=== PATIENT | male | born 1960 | race Caucasian/White ===

== ENCOUNTER 2017-05-29 16:26 | Observation (INO) | payer SELFPAY ==
[~2017-05-29 16:26] MED LIST: ASPI81TA82 PO; ENAL2.5 PO; GLUCTAB OR; GLYB1TAB51 PO; PLAV75TA PO; PRAV40TA2 PO; SULF-154 PO
[2017-05-29 16:45] VITALS: BP 130/64; PULSE 72; RESP 22; TEMP 98.3; O2SAT 97
[2017-05-29] MEDS ORDERED: METF850 PO (17:26)
[2017-05-29] MEDS ORDERED: ENAL2.5T PO (17:26)
[2017-05-29] MEDS ORDERED: CARV3.12 PO (17:26)
[2017-05-29] MEDS ORDERED: PRAV40TA2 PO (17:26)
[2017-05-29] MEDS ORDERED: CLOP75TA PO (17:26)
[2017-05-29] MEDS ORDERED: GLYB2.5T3 PO (17:26)
[2017-05-29] MEDS ORDERED: SODIUM CHLORIDE 0.9% FLUSH 10 ML FLUSH IVF PRN (17:30)
--- NOTE | 2017-05-29 17:33 | PD ---
HPI Chief Complaint: Chest Pain Time Seen by Provider: 17:18 Travel History International Travel<30 days: No Contact w/Intl Traveler<30days: No Traveled to known affect area: No History of Present Illness HPI Patient is a 57-year-old male presents emergency department for evaluation of shortness of breath progressive over the past few weeks. Patient has a history of CABG, last heart attack was a year ago, he had an angiogram which showed his ejection fraction was about 40% at that time according to him. The patient states that he had just established with Dr. Henao and recently had a nuclear stress test, he has a results with him which are difficult to interpret by me because her hand written but appears the patient has global hypokinesis, severe aortic insufficiency and mitral insufficiency with an EF of about 19%. Apparently he has a fixed defect as well. Patient was told by Dr. Henao to come to the emergency department for further evaluation but he states he thought he could do it at home but he became somewhat worried when they were thinking about his recommendations from Dr. Henao and decided to come in today. He states his shortness of breath can be severe and onsets only after a few steps. He does not wear any home oxygen, quit smoking 3 years ago. He denies any chest pain abdominal pain extremity pain to me. PFSH Past Medical History Cancer: No Cardiac Catheterization: Yes (05/2012) Cardiovascular Problems: Yes High Cholesterol: Yes Chest Pain: Yes Coronary Artery Disease: Yes Diabetes: Yes Patient Takes Glucophage: Yes Diminished Hearing: No Endocrine: Yes Gastrointestinal Disorders: Yes Genitourinary: No Hypertension: Yes Immune Disorder: No Musculoskeletal: Yes Neurologic: No Psychiatric: No Reproductive: No Respiratory: Yes Immunizations Current: Yes Myocardial Infarction: Yes (05/2012) Ulcer: Yes Tetanus Vaccination: > 5 Years Influenza Vaccination: No ?: Not Past Surgical History Appendectomy: Yes Cardiac Surgery: Yes (CABG X3) Other Surgery: Yes (CABG, APPENDECTOMY, SKIN GRAFTS TO RIGHT FOOT A CHILD, BACK SURGERY X 3) Social History Alcohol Use: Yes (SOCIALLY) Tobacco Use: No Substance Use: No Allergies-Medications (Allergen,Severity, Reaction): Coded Allergies: iodine (Unverified Allergy, Severe, Swelling, 05/29/17) potassium iodide (Unverified Allergy, Severe, Swelling, 05/29/17) povidone-iodine (Unverified Allergy, Severe, Swelling, 05/29/17) shellfish derived (Unverified Allergy, Severe, 05/29/17) sodium iodide (Unverified Allergy, Severe, Swelling, 05/29/17) sodium iodide (Unverified Allergy, Severe, Swelling, 05/29/17) Reported Meds & Prescriptions Reported Meds & Active Scripts Active Reported Glucophage (Metformin HCl) 850 Mg Tab 850 Mg PO TIDPC Enalapril (Enalapril Maleate) 2.5 Mg Tab 2.5 Mg PO DAILY Pravastatin 40 Mg Tab 40 Mg PO DAILY Glyburide 2.5 Mg Tab 2.5 Mg PO BID Take with meals at the same time each day Clopidogrel (Clopidogrel Bisulfate) 75 Mg Tab 75 Mg PO DAILY Review of Systems Except as stated in HPI: all other systems reviewed are Neg Physical Exam Narrative GENERAL: Well-developed, well-nourished, no obvious distress peer SKIN: Focused skin assessment warm/dry. HEAD: Atraumatic. Normocephalic. EYES: Pupils equal and round. No scleral icterus. No injection or drainage. ENT: No nasal bleeding or discharge. Mucous membranes pink and moist. NECK: Trachea midline. No JVD. CARDIOVASCULAR: Regular rate and rhythm. No murmur appreciated. 2+ bilateral equal pulses in all 4 extremities. RESPIRATORY: No accessory muscle use. Clear to auscultation. Breath sounds equal bilaterally. Patient speaks in full sentences but then has to gasp between them. He has good air entry and is clear to auscultation bilaterally. GASTROINTESTINAL: Abdomen soft, non-tender, nondistended. Hepatic and splenic margins not palpable. MUSCULOSKELETAL: No obvious deformities. No clubbing. No cyanosis. There is pitting edema bilateral lower extremities from the mid tibia distally. NEUROLOGICAL: Awake and alert. No obvious cranial nerve deficits. Motor grossly within normal limits. Normal speech. PSYCHIATRIC: Appropriate mood and affect; insight and judgment normal. Data Data Last Documented VS Orders Orders Electrocardiogram (05/29/17 17:29) B-Type Natriuretic Peptide (05/29/17 17:29) Ckmb (Isoenzyme) Profile (05/29/17 17:29) Complete Blood Count With Diff (05/29/17 17:29) Comprehensive Metabolic Panel (05/29/17 17:29) Magnesium (Mg) (05/29/17 17:29) Prothrombin Time / Inr (Pt) (05/29/17 17:29) Act Partial Throm Time (Ptt) (05/29/17 17:29) Troponin I (05/29/17 17:29) Chest, Single Ap (05/29/17 17:29) Ecg Monitoring (05/29/17 17:29) Iv Access Insert/Monitor (05/29/17 17:29) Oximetry (05/29/17 17:29) Oxygen Administration (05/29/17 17:29) Sodium Chloride 0.9% Flush (Ns Flush) (05/29/17 17:30) Admit Order (Ed Use Only) (05/29/17 20:57) Place In Observation (05/29/17 20:59) Activity Bed Rest With Brp (05/29/17 20:59) Vital Signs (Adult) Q4H (05/29/17 20:59) Cardiac Rhythm .As Directed (05/29/17 20:59) Notify Dr: Other .PRN (05/29/17 20:59) Notify DrAndrew Parameters (05/29/17 20:59) Resp Oxygen Nasal Cannula (05/29/17 ) Ckmb (Isoenzyme) Profile (05/29/17 20:59) Ckmb (Isoenzyme) Profile (05/29/17 23:59) Troponin I (05/29/17 20:59) Troponin I (05/29/17 23:59) Electrocardiogram (05/29/17 20:59) Electrocardiogram (05/29/17 23:59) ^ Obtain (05/29/17 20:59) Sodium Chloride 0.9% Flush (Ns Flush) (05/29/17 21:00) Sodium Chloride 0.9% Flush (Ns Flush) (05/29/17 21:00) Program Manager Environmental Planning / Telemetry [id number] (05/29/17 20:59) Labs Laboratory Tests Test 05/29/17 17:44 White Blood Count 5.4 TH/MM3 Red Blood Count 4.99 MIL/MM3 Hemoglobin 13.1 GM/DL Hematocrit 39.6 % Mean Corpuscular Volume 79.3 FL Mean Corpuscular Hemoglobin 26.2 PG Mean Corpuscular Hemoglobin Concent 33.0 % Red Cell Distribution Width 14.6 % Platelet Count 178 TH/MM3 Mean Platelet Volume 8.5 FL Neutrophils (%) (Auto) 47.7 % Lymphocytes (%) (Auto) 36.1 % Monocytes (%) (Auto) 12.7 % Eosinophils (%) (Auto) 2.2 % Basophils (%) (Auto) 1.3 % Neutrophils # (Auto) 2.6 TH/MM3 Lymphocytes # (Auto) 1.9 TH/MM3 Monocytes # (Auto) 0.7 TH/MM3 Eosinophils # (Auto) 0.1 TH/MM3 Basophils # (Auto) 0.1 TH/MM3 CBC Comment DIFF FINAL Differential Comment Prothrombin Time 11.6 SEC Prothromb Time International Ratio 1.1 RATIO Activated Partial Thromboplast Time 22.6 SEC Blood Urea Nitrogen 19 MG/DL Creatinine 1.03 MG/DL Random Glucose 275 MG/DL Total Protein 6.5 GM/DL Albumin 3.4 GM/DL Calcium Level 8.9 MG/DL Magnesium Level 1.7 MG/DL Alkaline Phosphatase 146 U/L Aspartate Amino Transf (AST/SGOT) 24 U/L Alanine Aminotransferase (ALT/SGPT) 45 U/L Total Bilirubin 0.4 MG/DL Sodium Level 140 MEQ/L Potassium Level 4.3 MEQ/L Chloride Level 106 MEQ/L Carbon Dioxide Level 26.5 MEQ/L Anion Gap 8 MEQ/L Estimat Glomerular Filtration Rate 74 ML/MIN Total Creatine Kinase 96 U/L Troponin I LESS THAN 0.02 NG/ML B-Type Natriuretic Peptide 472 PG/ML MDM Medical Decision Making Medical Screen Exam Complete: Yes Emergency Medical Condition: Yes Differential Diagnosis ACS, CAD, DE. Narrative Course Patient initial workup negative, he does have a stress test report with him which is hand written and appears to show an EF of 19%. If attempted to page his television and radio repairer has not yet returned my page, I have asked Dr. Hernandez at shift change to speak with the television and radio repairer for additional direction on inpatient management, otherwise the patient can be admitted to medicine can follow these recommendations. Scripts Carvedilol (Carvedilol) 6.25 Mg Tab 6.25 MG PO BID, #60 TAB 0 Refills Prov: NewtonphuongkatieBrittney TOYA 05/30/17 Parmjit Ashford MD May 29, 2017 17:33
[2017-05-29 18:06] LABS: AUTOMATED NEUTROPHIL # 2.6 TH/MM3 (1.8-7.7); BASOPHIL # 0.1 TH/MM3 (0-0.2); BASOPHIL % 1.3 % (0.0-2.0); EOSINOPHIL # 0.1 TH/MM3 (0-0.4); EOSINOPHIL % 2.2 % (0.0-4.0); HEMATOCRIT 39.6 % (39.0-51.0); HEMOGLOBIN 13.1 GM/DL (13.0-17.0); LYMPH % 36.1 % (9.0-44.0); LYMPHOCYTE # 1.9 TH/MM3 (1.0-4.8); MEAN CELL VOLUME 79.3 FL (80.0-100.0); MEAN CORPUSCULAR HEMOGLOBIN 26.2 PG (27.0-34.0); MEAN PLATELET VOLUME 8.5 FL (7.0-11.0); MONO % 12.7 % (0.0-8.0); MONOCYTE # 0.7 TH/MM3 (0-0.9); NEUT % 47.7 % (16.0-70.0); PLATELET COUNT 178 TH/MM3 (150-450); RED BLOOD COUNT 4.99 MIL/MM3 (4.50-5.90); RED CELL DISTRIBUTION WIDTH 14.6 % (11.6-17.2); WHITE BLOOD COUNT 5.4 TH/MM3 (4.0-11.0)
[2017-05-29 18:21] LABS: INTERNATIONAL NORMALIZED RATIO 1.1 RATIO; PROTHROMBIN TIME - PATIENT 11.6 SEC (9.8-11.6)
[2017-05-29 18:26] LABS: ALBUMIN 3.4 GM/DL (3.4-5.0); AST (GOT) 24 U/L (15-37); BICARBONATE 26.5 MEQ/L (21.0-32.0); BLOOD UREA NITROGEN 19 MG/DL (7-18); CALCIUM 8.9 MG/DL (8.5-10.1); CHLORIDE 106 MEQ/L (98-107); CREATININE 1.03 MG/DL (0.60-1.30); GLOMERULAR FILTRATION RATE 74 ML/MIN (>89); GLUCOSE,RANDOM 275 MG/DL (74-106); MAGNESIUM 1.7 MG/DL (1.5-2.5); SODIUM (NA) 140 MEQ/L (136-145)
[2017-05-29 18:27] LABS: ALT (GPT) 45 U/L (12-78)
[2017-05-29 18:31] LABS: ALKALINE PHOSPHATASE 146 U/L (45-117); TOTAL BILIRUBIN ADULT 0.4 MG/DL (0.2-1.0); TOTAL PROTEIN 6.5 GM/DL (6.4-8.2); TROPONIN I LESS THAN 0.02 NG/ML (0.02-0.05)
--- NOTE | 2017-05-29 18:35 | RADRPT ---
EXAM DATE/TIME: 05/29/2017 18:05 [facility] COMPARISON: CHEST SINGLE AP, May 18, 2012, 23:43. INDICATIONS : Chest pain. MEDICAL HISTORY : None. SURGICAL HISTORY : CABG. ENCOUNTER: Initial ACUITY: 1 day PAIN SCORE: 4/10 LOCATION: Bilateral chest FINDINGS: Mild patient rotation towards the right. A single view of the chest demonstrates the lungs to be sym metrically aerated without evidence of mass, infiltrate or effusion. The cardiomediastinal contours are unremarkable. Osseous structures are intact. Median sternotomy with intact sternal wire sutures . CONCLUSION: The lungs are clear. Haseeb Hendrix MD on May 29, 2017 at 18:33 Board Certified Radiologist. This report was verified electronically.
[2017-05-29 20:19] VITALS: BP 110/67; PULSE 69; RESP 16; O2SAT 97
[2017-05-29] MEDS: SODIUM CHLORIDE 0.9% FLUSH 10 ML FLUSH IV FLUSH SCH (21:00)
[2017-05-29] MEDS ORDERED: SODIUM CHLORIDE 0.9% FLUSH 10 ML FLUSH IV FLUSH PRN (21:00)
[2017-05-29 22:22] LABS: TROPONIN I LESS THAN 0.02 NG/ML (0.02-0.05)
[2017-05-29 22:42] VITALS: BP 120/70; PULSE 62; RESP 16; TEMP 97.5; O2SAT 98
[2017-05-30] VITALS (7 sets, daily range): BP systolic 112–124; BP diastolic 55–71; PULSE 55–73; RESP 16–22; TEMP 97.3–97.7; O2SAT 98–99
[2017-05-30 02:01] LABS: TROPONIN I LESS THAN 0.02 NG/ML (0.02-0.05)
[2017-05-30] MEDS ORDERED: NITROGLYCERIN 0.4 MG SL 25 TABS/BTL SL PRN (08:00)
[2017-05-30] MEDS ORDERED: ACETAMINOPHEN 500 MG CPLT PO PRN (08:00)
[2017-05-30] MEDS ORDERED: ONDANSETRON HCL 4 MG/2 ML VIAL IV PUSH PRN (08:00)
--- NOTE | 2017-05-30 08:07 | HHI.HP ---
[facility] Primary Care Physician Michael Jacques DO Chief Complaint Dyspnea History of Present Illness 57 year old male with history of CABG, CHF, HTN, HLD, Type II DM, and former smoker presents to ER for further evaluation of dyspnea. Onset 3 weeks ago with accompanying bilateral lower extremity edema. Edema and dyspnea improved after one week "on it's own" before returning. Reported orthopnea during varies times during the day and exertional dsypnea, therefore he contacted his seed cleaner Dr. Henao. Reports multiple testing completed during this time, including echocardiogram and nuclear stress testing early this week. Dr. Henao reviewed results of testing with him on Saturday and MD recommended him coming to ER due to decreased EF of 19%, stating EF 1.5 year ago was 40%. Waited to come to ER due to errands wanting to complete as he was certain he would be admitted to hospital. No current chest pain or discomfort. Yesterday during an episode of dyspnea had central chest pressure briefly. Review of Systems General: No fatigue,weakness, fever, chills, recent illness, or change in appetite. HEENT: No FLORES, no vision changes, no nasal congestion or drainage CV: As stated above. No current chest pain or pressure. No palpitations, intermittent leg pain, dizziness RESP: Exertional dyspnea, orthopnea, COPD, and former smoker. Does not require home oxygen. No cough, wheeze, hemoptysis. GI: No nausea, vomiting, bowel changes. No unintentional weight gain or weight loss : No dysuria, urgency, frequency EXT: No lower leg edema, no paraesthesias MS: No discomfort or change in ROM NEURO: No change in memory, dizziness, difficulty with balance, LOC, motor/ sensory deficits PSYCH: No anxiety, depression SKIN: No rashes, no concerning lesions Past Family Social History Allergies: Coded Allergies: iodine (Unverified Allergy, Severe, Swelling, 05/29/17) potassium iodide (Unverified Allergy, Severe, Swelling, 05/29/17) povidone-iodine (Unverified Allergy, Severe, Swelling, 05/29/17) shellfish derived (Unverified Allergy, Severe, 05/29/17) sodium iodide (Unverified Allergy, Severe, Swelling, 05/29/17) sodium iodide (Unverified Allergy, Severe, Swelling, 05/29/17) Past Medical History Coronary artery disease, [place] (15 year ago), hypertension, hyperlipidemia, type 2 diabetes, former smoker, congestive heart failure, COPD Past Surgical History CABG, appendectomy, lumbar surgeries 3 Reported Medications Reported Meds & Active Scripts Active Reported Glucophage (Metformin HCl) 850 Mg Tab 850 Mg PO TIDPC Enalapril (Enalapril Maleate) 2.5 Mg Tab 2.5 Mg PO DAILY Pravastatin 40 Mg Tab 40 Mg PO DAILY Carvedilol 3.125 Mg Tab 3.125 Mg PO BID Glyburide 2.5 Mg Tab 2.5 Mg PO BID Take with meals at the same time each day Clopidogrel (Clopidogrel Bisulfate) 75 Mg Tab 75 Mg PO DAILY Active Ordered Medications Current Medications Medications (Trade) Dose Ordered Sig/Erika Route Start Time Stop Time Status Last Admin (NS Flush) 2 ml UNSCH PRN IVF 05/29/17 17:30 (NS Flush) 2 ml UNSCH PRN IV FLUSH 05/29/17 21:00 (NS Flush) 2 ml BID IV FLUSH 05/29/17 21:00 (Tylenol) 500 mg Q4H PRN PO 05/30/17 08:00 (Zofran Inj) 4 mg Q6H PRN IV PUSH 05/30/17 08:00 (Nitrostat Sl) 0.4 mg Q5M PRN SL 05/30/17 08:00 (Aspirin) 325 mg DAILY PO 05/30/17 09:00 Social History Known coronary artery disease, hypertension, hyperlipidemia, and type 2 diabetes. Former smoker quitting 3 years ago. Past cardiac testing 05/27/17- Chemical stress test completed Dr. Henao's office, reports EF 19% and directed to ER. 05/20/12 cardiac catheterization (Dr. Aviva Sapp) 1. Critical three-vessel coronary artery disease. 2. Patent DAI to LAD. 3. Ischemic cardiomyopathy EF 35-40% CABG Physical Exam Vital Signs Vital Signs Date Time Temp Pulse Resp B/P (MAP) Pulse Ox O2 Delivery O2 Flow Rate FiO2 05/30/17 04:53 97.5 69 16 119/67 (84) 98 05/30/17 01:21 Nasal Cannula 2.00 05/30/17 01:05 97.6 73 18 115/57 (76) 98 05/30/17 00:19 71 3/7/18 22:42 97.5 62 16 120/70 (87) 98 05/29/17 22:02 05/29/17 20:19 69 16 110/67 (81) 97 Nasal Cannula 2.00 05/29/17 18:15 100 Nasal Cannula 2.00 05/29/17 17:03 62 22 97 Nasal Cannula 2.00 05/29/17 16:45 98.3 72 22 130/64 (86) 97 Physical Exam GENERAL: Alert WN, WD, NAD, pleasant, mildly dyspneic with conversation, male who appears older than stated age HEAD: NC, AT EYES: Sclera clear, conjunctiva without injection ENT: Mucous membranes pink and moist NECK: Supple, no masses, trachea midline CV: RRR, without murmur, rub, gallop, no JVD, S1-S2 no S3-S4. RESP: Diminished lungs throughout bilateral, no crackles, wheeze, rhonchi, symmetrical chest rise, nonlabored, mildly dyspneic with conversion however able to speak in full sentences. ABD: Soft, NT, ND, no masses, positive bowel tones EXT: Pulses +24 MS: Normal tone 4 extremities, no obvious deformities, full range of motion NEURO: CN II through CN XII grossly intact, motor strength 5/5 PSYCH: A+O 3, pleasant affect, appropriate speech, mood, insight and judgment SKIN: Normal turgor, normal texture, no lesions, no rashes, even hair distribution, multiple tattoos Laboratory Laboratory Tests Test 05/29/17 17:44 05/29/17 21:20 05/30/17 01:15 White Blood Count 5.4 Red Blood Count 4.99 Hemoglobin 13.1 Hematocrit 39.6 Mean Corpuscular Volume 79.3 Mean Corpuscular Hemoglobin 26.2 Mean Corpuscular Hemoglobin Concent 33.0 Red Cell Distribution Width 14.6 Platelet Count 178 Mean Platelet Volume 8.5 Neutrophils (%) (Auto) 47.7 Lymphocytes (%) (Auto) 36.1 Monocytes (%) (Auto) 12.7 Eosinophils (%) (Auto) 2.2 Basophils (%) (Auto) 1.3 Neutrophils # (Auto) 2.6 Lymphocytes # (Auto) 1.9 Monocytes # (Auto) 0.7 Eosinophils # (Auto) 0.1 Basophils # (Auto) 0.1 CBC Comment DIFF FINAL Differential Comment Prothrombin Time 11.6 Prothromb Time International Ratio 1.1 Activated Partial Thromboplast Time 22.6 Blood Urea Nitrogen 19 Creatinine 1.03 Random Glucose 275 Total Protein 6.5 Albumin 3.4 Calcium Level 8.9 Magnesium Level 1.7 Alkaline Phosphatase 146 Aspartate Amino Transf (AST/SGOT) 24 Alanine Aminotransferase (ALT/SGPT) 45 Total Bilirubin 0.4 Sodium Level 140 Potassium Level 4.3 Chloride Level 106 Carbon Dioxide Level 26.5 Anion Gap 8 Estimat Glomerular Filtration Rate 74 Total Creatine Kinase 96 73 59 Troponin I LESS THAN 0.02 LESS THAN 0.02 LESS THAN 0.02 B-Type Natriuretic Peptide 472 Result Diagram: 05/29/17 1744 05/29/17 1744 Imaging Last 48 hours Impressions Chest X-Ray 05/29/17 1729 Signed Impressions: Service Date/Time: Monday, May 29, 2017 18:05 - CONCLUSION: The lungs are clear. Haseeb Hendrix MD Course EKG NSB, nonspecific t waves changes V4-V6 Caprini VTE Risk Assessment Caprini VTE Risk Assessment: No/Low Risk (score <= 1) Caprini Risk Assessment Model Point Value = 1 Point Value = 2 Point Value = 3 Point Value = 5 Age 41-60 Minor surgery BMI > 25 kg/m2 Swollen legs Varicose veins or History of unexplained or recurrent spontaneous Oral contraceptives or hormone replacement Sepsis (< 1 month) Serious lung disease, including pneumonia (< 1 month) Abnormal pulmonary function Acute myocardial infarction Congestive heart failure (< 1 month) History of inflammatory bowel disease Medical patient at bed rest Age 61-74 Arthroscopic surgery Major open surgery (> 45 min) Laparoscopic surgery (> 45 min) Malignancy Confined to bed (> 72 hours) Immobilizing plaster cast Central venous access Age >= 75 History of VTE Family history of VTE Factor V Leiden Prothrombin [id number] Lupus anticoagulant Anticardiolipin antibodies Elevated serum homocysteine Heparin-induced thrombocytopenia Other congenital or acquired thrombophilia Stroke (< 1 month) Elective arthroplasty Hip, pelvis, or leg fracture Acute spinal cord injury (< 1 month) Prophylaxis Regimen Total Risk Factor Score Risk Level Prophylaxis Regimen 0-1 Low Early ambulation 2 Moderate Order ONE of the following: *Sequential Compression Device (SCD) *Heparin 5000 units SQ BID 3-4 Higher Order ONE of the following medications: *Heparin 5000 units SQ TID *Enoxaparin/Lovenox 40 mg SQ daily (WT < 150 kg, CrCl > 30 mL/min) *Enoxaparin/Lovenox 30 mg SQ daily (WT < 150 kg, CrCl > 10-29 mL/min) *Enoxaparin/Lovenox 30 mg SQ BID (WT < 150 kg, CrCl > 30 mL/min) AND/OR *Sequential Compression Device (SCD) 5 or more Highest Order ONE of the following medications: *Heparin 5000 units SQ TID (Preferred with Epidurals) *Enoxaparin/Lovenox 40 mg SQ daily (WT < 150 kg, CrCl > 30 mL/min) *Enoxaparin/Lovenox 30 mg SQ daily (WT < 150 kg, CrCl > 10-29 mL/min) *Enoxaparin/Lovenox 30 mg SQ BID (WT < 150 kg, CrCl > 30 mL/min) AND *Sequential Compression Device (SCD) Assessment and Plan Assessment and Plan #1 Atypical chest pain-admitted to chest pain center. Ruled out with 3 sets of EKGs, cardiac enzymes, and monitored on telemetry overnight. Reports recent cardiac stress test early this week with EF 19%. His seed cleaner recommended him coming to ER on Saturday, unfortunately was unable to come to ER until last evening. Call will be placed to Dr. Henao office, however patient reports Dr. Henao is now out of town. If Dr. Henao is out of town, will contact on -call physician for Dr. Henao to discuss plan of care. Patient is agreeable to plan of care. #2 Dyspnea-continue o2 supplementation to maintain spo2 greater than 92%, no acute finding of congestive heart failure although due to reported orthopnea will administer x1 dose of Lasix 20 mg IV #3 History of CAD-continue Plavix, increase Coreg to 6.25 BID, continue enalapril [address] Rivas, covering for Dr. Henao. Brittney Parrish May 30, 2017 08:07
[2017-05-30] MEDS ORDERED: GLUCAGON 1 MG/ML VIAL OTHER PRN (08:45)
[2017-05-30] MEDS ORDERED: FUROSEMIDE 20 MG/2 ML VIAL IV PUSH ONE (08:45)
[2017-05-30] MEDS ORDERED: DEXTROSE 50% IN WATER 50 ML VIAL(D50) IV PUSH PRN (08:45)
[2017-05-30] MEDS ORDERED: ENALAPRIL MALEATE 2.5 MG TAB PO SCH (09:00)
[2017-05-30] MEDS ORDERED: PRAVASTATIN SOD 40 MG TAB PO SCH (09:00)
[2017-05-30] MEDS ORDERED: CARVEDILOL 6.25 MG TAB PO SCH (09:00)
[2017-05-30] MEDS ORDERED: ASPIRIN 325 MG TAB PO SCH (09:00)
[2017-05-30] MEDS ORDERED: CLOPIDOGREL 75 MG TAB PO SCH (09:00)
[2017-05-30] MEDS: SODIUM CHLORIDE 0.9% FLUSH 10 ML FLUSH IV FLUSH SCH (10:43)
[2017-05-30] MEDS ORDERED: INSULIN ASPART SUPPLEMENTAL SCALE SQ SCH (12:00)
[2017-05-30] MEDS ORDERED: CARV6.252 PO (13:02)
--- NOTE | 2017-05-30 13:05 | HHI.DCPOC ---
Discharge Care Plan Diagnosis: (1) Decreased cardiac ejection fraction (2) Atypical chest pain (3) Sleeps in sitting position due to orthopnea Goals to Promote Your Health * To prevent worsening of your condition and complications * To maintain your health at the optimal level Directions to Meet Your Goals Take your medications as prescribed Follow your dietary instruction Follow activity as directed Keep your appointments as scheduled Take your immunizations and boosters as scheduled If your symptoms worsen call your PCP, if no PCP go to Urgent Care Center or Emergency Room Smoking is Dangerous to Your Health. Avoid second hand smoke Call the 24-hour hour crisis hotline for domestic abuse at Brittney Parrish May 30, 2017 13:05
--- NOTE | 2017-05-31 08:46 | EKG ---
Date Performed: 05/30/2017 Time Performed: 01:23:56 PTAGE: 57 years EKG: Sinus rhythm POSSIBLE LEFT ATRIAL ENLARGEMENT POSSIBLE LEFT VENTRICULAR HYPERTROPHY NONSPECIFIC T-WAVE ABNORMALIT Y ABNORMAL ECG PREVIOUS TRACING : 05/29/2017 22.52 Since previous tracing, no significant change noted DOCTOR: Sukhdeep Rosales Interpretating Date/Time 05/31/2017 08:45:04
--- NOTE | 2017-05-31 08:47 | EKG ---
Date Performed: 05/29/2017 Time Performed: 22:52:15 PTAGE: 57 years EKG: SINUS BRADYCARDIA POSSIBLE LEFT ATRIAL ENLARGEMENT POSSIBLE LEFT VENTRICULAR HYPERTROPHY NO NSPECIFIC T-WAVE ABNORMALITY ABNORMAL ECG PREVIOUS TRACING : 05/29/2017 21.23 Since previous tracing, no significant change noted DOCTOR: Sukhdeep Rosales Interpretating Date/Time 05/31/2017 08:45:24
--- NOTE | 2017-05-31 08:47 | EKG ---
Date Performed: 05/29/2017 Time Performed: 21:23:09 PTAGE: 57 years EKG: Sinus rhythm POSSIBLE LEFT ATRIAL ENLARGEMENT POSSIBLE LEFT VENTRICULAR HYPERTROPHY ST DEVIATION AND MODERATE T-W AVE ABNORMALITY, CONSIDER LATERAL ISCHEMIA ABNORMAL ECG WARNING: DATA QUALITY MAY AFFECT INTERPRETATI ON PREVIOUS TRACING : 05/29/2017 17.03 Since previous tracing, no significant change noted DOCTOR: Sukhdeep Rosales Interpretating Date/Time 05/31/2017 08:46:02
--- NOTE | 2017-05-31 08:48 | EKG ---
Date Performed: 05/29/2017 Time Performed: 17:03:14 PTAGE: 57 years EKG: Sinus rhythm POSSIBLE LEFT ATRIAL ENLARGEMENT POSSIBLE LEFT VENTRICULAR HYPERTROPHY ST DEVIATION AND MODERATE T-W AVE ABNORMALITY, CONSIDER ANTEROLATERAL ISCHEMIA ABNORMAL ECG INTERPRETATION BASED ON A DEFAULT AGE O F 38 YEARS PREVIOUS TRACING : 05/19/2012 14.28 Since previous tracing, no significant change noted DOCTOR: Sukhdeep Rosales Interpretating Date/Time 05/31/2017 08:48:38
== END 2017-05-30 14:30 | disposition home or self-care (01) ==
LOC: NEPE 16:26 → NEDA 20:59 → NEPFCDU 22:01
PROVIDERS: ADMIT Internal Medicine Cardiovascular Disease; ATTEND Internal Medicine Cardiovascular Disease
DX: R07.89 Other chest pain (principal); R06.00 Dyspnea, unspecified; I25.10 Atherosclerotic heart disease of native coronary artery without angina pectoris; I11.0 Hypertensive heart disease with heart failure; I50.9 Heart failure, unspecified; I08.0 Rheumatic disorders of both mitral and aortic valves; E78.00 Pure hypercholesterolemia, unspecified; I25.2 Old myocardial infarction; R00.1 Bradycardia, unspecified; R94.31 Abnormal electrocardiogram [ECG] [EKG]; E11.9 Type 2 diabetes mellitus without complications; Z95.1 Presence of aortocoronary bypass graft; Z87.891 Personal history of nicotine dependence; Z79.899 Other long term (current) drug therapy; Z79.84 Long term (current) use of oral hypoglycemic drugs
CPT/HCPCS: 71045; 80053; 82550; 82948; 83735; 83880; 84484; 85025; 85610; 85730; 93005; 96374; 99285; G0378; J1940

== ENCOUNTER 2017-06-12 11:50 | Inpatient (IN) | payer OTHER ==
[~2017-06-12] VITALS: Ht 180.3 cm; Wt 85.1 kg
[~2017-06-12 11:50] MED LIST changes: -ASPI81TA82 PO; +CARV6.252 PO; +CLOP75TA PO; -ENAL2.5 PO; +ENAL2.5T PO; -GLUCTAB OR; -GLYB1TAB51 PO; +GLYB2.5T3 PO; +METF850 PO; -PLAV75TA PO; -SULF-154 PO
[2017-06-12 12:22] VITALS: BP 124/62; PULSE 62; RESP 22; TEMP 98; O2SAT 99
[2017-06-12 13:00] LABS: AUTOMATED NEUTROPHIL # 2.8 TH/MM3 (1.8-7.7); BASOPHIL # 0.1 TH/MM3 (0-0.2); BASOPHIL % 1.1 % (0.0-2.0); EOSINOPHIL # 0.1 TH/MM3 (0-0.4); EOSINOPHIL % 2.4 % (0.0-4.0); HEMATOCRIT 42.3 % (39.0-51.0); LYMPH % 35.6 % (9.0-44.0); MEAN CELL VOLUME 79.5 FL (80.0-100.0); MEAN CORPUSCULAR HEMOGLOBIN 26.3 PG (27.0-34.0); MEAN PLATELET VOLUME 8.5 FL (7.0-11.0); MONO % 11.1 % (0.0-8.0); MONOCYTE # 0.6 TH/MM3 (0-0.9); NEUT % 49.8 % (16.0-70.0); PLATELET COUNT 172 TH/MM3 (150-450); RED BLOOD COUNT 5.32 MIL/MM3 (4.50-5.90); WHITE BLOOD COUNT 5.6 TH/MM3 (4.0-11.0)
[2017-06-12 13:08] LABS: INTERNATIONAL NORMALIZED RATIO 1.1 RATIO; PROTHROMBIN TIME - PATIENT 10.9 SEC (9.8-11.6)
--- NOTE | 2017-06-12 13:15 | RADRPT ---
EXAM DATE/TIME: 06/12/2017 13:08 [facility] COMPARISON: CHEST SINGLE AP, May 29, 2017, 18:05. INDICATIONS : Chest pains with pressure mid sternal radiating into back. MEDICAL HISTORY : Myocardial infarction. SURGICAL HISTORY : CABG. ENCOUNTER: Initial ACUITY: 4 - 6 days PAIN SCORE: 9/10 LOCATION: Bilateral chest FINDINGS: PA and lateral views of the chest demonstrate the lungs to be symmetrically aerated without evidence of mass, infiltrate or effusion. The cardiomediastinal contours are stable. There is evidence of pre vious cardiothoracic surgery.. Osseous structures are intact. No significant changes compared to the prior study. CONCLUSION: No acute disease. No significant change has occurred. Evan Hampton MD on June 12, 2017 at 13:13 Board Certified Radiologist. This report was verified electronically.
[2017-06-12 13:23] LABS: ALBUMIN 3.7 GM/DL (3.4-5.0); AST (GOT) 26 U/L (15-37); BICARBONATE 24.7 MEQ/L (21.0-32.0); BLOOD UREA NITROGEN 14 MG/DL (7-18); CALCIUM 9.2 MG/DL (8.5-10.1); CHLORIDE 106 MEQ/L (98-107); CREATININE 1.07 MG/DL (0.60-1.30); GLOMERULAR FILTRATION RATE 71 ML/MIN (>89); GLUCOSE,RANDOM 248 MG/DL (74-106); MAGNESIUM 1.9 MG/DL (1.5-2.5); SODIUM (NA) 140 MEQ/L (136-145)
[2017-06-12 13:24] LABS: ALT (GPT) 43 U/L (12-78)
[2017-06-12 13:28] LABS: ALKALINE PHOSPHATASE 132 U/L (45-117); TOTAL BILIRUBIN ADULT 0.6 MG/DL (0.2-1.0); TOTAL PROTEIN 7.4 GM/DL (6.4-8.2); TROPONIN I LESS THAN 0.02 NG/ML (0.02-0.05)
[2017-06-12 14:16] VITALS: RESP 16; O2SAT 100
[2017-06-12] MEDS ORDERED: ASPIRIN 325 MG TAB PO ONE (14:30)
[2017-06-12] MEDS ORDERED: NITROGLYCERIN 2% OINT 1 GM PACKET TOPICAL ONE (14:30)
--- NOTE | 2017-06-12 15:02 | PD ---
HPI Chief Complaint: Chest Pain Time Seen by Provider: 13:52 Travel History International Travel<30 days: No Contact w/Intl Traveler<30days: No Traveled to known affect area: No History of Present Illness HPI 57-year-old male that presents to the ED for evaluation of left-sided chest pain to raise to the left arm. As well as shortness of breath. Patient has had this on and off for the past 2-3 weeks. Per patient he is actually follow with Dr. Henao who did multiple tests including a stress test that shows significant EF reduction per our records to 19% from 40% last year per patient and records from patient's evaluation 2 weeks ago. Patient was actually seen here 2 weeks ago for same. Dr. Henao has been on medication in his thinking about doing a heart Per family on the patient to see what else is going on. It appears the patient from what I can tell might have a valve issue. Patient himself states that the symptoms have not improved and per patient's his medications were increased but he still feels very weak and tired as well as very short of breath with any movement. Per patient the numbness and tingling to the left arm have improved since being here but he continues to have the chest discomfort and pressure like something sitting on his chest. Per family and patient Dr. Henao his back and apparently they were told by Dr. Henao that when patient gets here to the ER that we contact him. Patient does have allergies to iodine. Per patient his discomfort 6 out of 10. He has taken aspirin today. Has a history of high blood pressure and high cholesterol as well. He does take Plavix. PFSH Past Medical History Heart Rhythm Problems: Yes Cancer: No Cardiac Catheterization: Yes Cardiovascular Problems: Yes High Cholesterol: Yes Chest Pain: Yes Congestive Heart Failure: Yes Coronary Artery Disease: Yes Diabetes: Yes Patient Takes Glucophage: No Diminished Hearing: No Endocrine: Yes Gastrointestinal Disorders: Yes Genitourinary: No Hypertension: Yes Immune Disorder: No Musculoskeletal: Yes Neurologic: No Psychiatric: No Reproductive: No Respiratory: Yes Immunizations Current: Yes Myocardial Infarction: Yes (05/2012) Ulcer: Yes Tetanus Vaccination: Unknown Past Surgical History Appendectomy: Yes Cardiac Surgery: Yes (CABG X3) Coronary Artery Bypass Graft: Yes Other Surgery: Yes (CABG, APPENDECTOMY, SKIN GRAFTS TO RIGHT FOOT A CHILD, BACK SURGERY X 3) Family History Family Myocardial Infarction: Yes Social History Alcohol Use: Yes (SOCIALLY) Tobacco Use: No Substance Use: No Allergies-Medications (Allergen,Severity, Reaction): Coded Allergies: iodine (Unverified Allergy, Severe, Swelling, 06/12/17) potassium iodide (Unverified Allergy, Severe, Swelling, 06/12/17) povidone-iodine (Unverified Allergy, Severe, Swelling, 06/12/17) shellfish derived (Unverified Allergy, Severe, 06/12/17) sodium iodide (Unverified Allergy, Severe, Swelling, 06/12/17) sodium iodide (Unverified Allergy, Severe, Swelling, 06/12/17) Reported Meds & Prescriptions Reported Meds & Active Scripts Active Carvedilol 6.25 Mg Tab 6.25 Mg PO BID Reported Glucophage (Metformin HCl) 850 Mg Tab 850 Mg PO TIDPC Enalapril (Enalapril Maleate) 2.5 Mg Tab 2.5 Mg PO DAILY Pravastatin 40 Mg Tab 40 Mg PO DAILY Glyburide 2.5 Mg Tab 2.5 Mg PO BID Take with meals at the same time each day Clopidogrel (Clopidogrel Bisulfate) 75 Mg Tab 75 Mg PO DAILY Review of Systems Except as stated in HPI: all other systems reviewed are Neg Physical Exam Narrative GENERAL: SKIN: Warm and dry. HEAD: Atraumatic. Normocephalic. EYES: Pupils equal and round. No scleral icterus. No injection or drainage. ENT: No nasal bleeding or discharge. Mucous membranes pink and moist. Tongue is midline. No uvula deviation. NECK: Trachea midline. No JVD. CARDIOVASCULAR: Regular rate and rhythm. Murmur heard, S3, S4. RESPIRATORY: No accessory muscle use. Clear to auscultation. Breath sounds equal bilaterally. GASTROINTESTINAL: Abdomen soft, non-tender, nondistended. Hepatic and splenic margins not palpable. MUSCULOSKELETAL: Extremities without clubbing, cyanosis, or edema. No obvious deformities. Full range of motion of the upper and lower extremities bilaterally. 2+ pulses bilaterally. NEUROLOGICAL: Awake and alert. No obvious cranial nerve deficits. Motor grossly within normal limits. Five out of 5 muscle strength in the arms and legs. Normal speech. PSYCHIATRIC: Appropriate mood and affect; insight and judgment normal. Data Data Last Documented VS Vital Signs Date Time Temp Pulse Resp B/P (MAP) Pulse Ox O2 Delivery O2 Flow Rate FiO2 06/12/17 14:16 16 100 Room Air 06/12/17 12:22 98.0 62 124/62 (82) Orders Orders Electrocardiogram (06/12/17 12:25) B-Type Natriuretic Peptide (06/12/17 12:25) Ckmb (Isoenzyme) Profile (06/12/17 12:25) Complete Blood Count With Diff (06/12/17 12:25) Comprehensive Metabolic Panel (06/12/17 12:25) Magnesium (Mg) (06/12/17 12:25) Prothrombin Time / Inr (Pt) (06/12/17 12:25) Act Partial Throm Time (Ptt) (06/12/17 12:25) Troponin I (06/12/17 12:25) Lipase (06/12/17 12:25) Chest, Pa & Lat (06/12/17 12:25) CKMB (06/12/17 12:37) CKMB% (06/12/17 12:37) Iv Access Insert/Monitor (06/12/17 14:00) Oximetry (06/12/17 14:00) Ecg Monitoring (06/12/17 14:00) Aspirin (Aspirin) (06/12/17 14:30) Nitroglycerin 2% Oint (Nitroglycerin 2% (06/12/17 14:30) Admit Order (Ed Use Only) (06/12/17 15:40) Act Partial Throm Time (Ptt) (06/12/17 15:40) Prothrombin Time / Inr (Pt) (06/12/17 15:40) Cbc No Diff, Includes Plts (06/12/17 15:40) Cbc No Diff, Includes Plts (06/15/17 06:00) Act Partial Throm Time (Ptt) (06/12/17 22:40) Consult Cardiology (06/12/17 ) Labs Laboratory Tests Test 06/12/17 12:37 White Blood Count 5.6 TH/MM3 Red Blood Count 5.32 MIL/MM3 Hemoglobin 14.0 GM/DL Hematocrit 42.3 % Mean Corpuscular Volume 79.5 FL Mean Corpuscular Hemoglobin 26.3 PG Mean Corpuscular Hemoglobin Concent 33.0 % Red Cell Distribution Width 15.0 % Platelet Count 172 TH/MM3 Mean Platelet Volume 8.5 FL Neutrophils (%) (Auto) 49.8 % Lymphocytes (%) (Auto) 35.6 % Monocytes (%) (Auto) 11.1 % Eosinophils (%) (Auto) 2.4 % Basophils (%) (Auto) 1.1 % Neutrophils # (Auto) 2.8 TH/MM3 Lymphocytes # (Auto) 2.0 TH/MM3 Monocytes # (Auto) 0.6 TH/MM3 Eosinophils # (Auto) 0.1 TH/MM3 Basophils # (Auto) 0.1 TH/MM3 CBC Comment DIFF FINAL Differential Comment Prothrombin Time 10.9 SEC Prothromb Time International Ratio 1.1 RATIO Activated Partial Thromboplast Time 23.1 SEC Blood Urea Nitrogen 14 MG/DL Creatinine 1.07 MG/DL Random Glucose 248 MG/DL Total Protein 7.4 GM/DL Albumin 3.7 GM/DL Calcium Level 9.2 MG/DL Magnesium Level 1.9 MG/DL Alkaline Phosphatase 132 U/L Aspartate Amino Transf (AST/SGOT) 26 U/L Alanine Aminotransferase (ALT/SGPT) 43 U/L Total Bilirubin 0.6 MG/DL Sodium Level 140 MEQ/L Potassium Level 4.3 MEQ/L Chloride Level 106 MEQ/L Carbon Dioxide Level 24.7 MEQ/L Anion Gap 9 MEQ/L Estimat Glomerular Filtration Rate 71 ML/MIN Total Creatine Kinase 128 U/L Creatine Kinase MB 3.3 NG/ML Troponin I LESS THAN 0.02 NG/ML Lipase 189 U/L MDM Medical Decision Making Medical Screen Exam Complete: Yes Emergency Medical Condition: Yes Medical Record Reviewed: Yes Interpretation(s) CBC & BMP Diagram 06/12/17 12:37 Total Protein 7.4, Albumin 3.7, Calcium Level 9.2, Magnesium Level 1.9, Alkaline Phosphatase 132 H, Aspartate Amino Transf (AST/SGOT) 26, Alanine Aminotransferase (ALT/SGPT) 43, Total Bilirubin 0.6 troponin and CKMB negative EKG shows sinus rhythm with no sign of acute ischemia read negative by me and attending. Last Impressions Chest X-Ray 06/12/17 1225 Signed Impressions: Service Date/Time: Monday, June 12, 2017 13:08 - CONCLUSION: No acute disease. No significant change has occurred. Evan Hampton MD Differential Diagnosis angina versus unstable angina versus atypical chest pain versus ejection fracture issue versus ACS versus CHF versus dyspnea Narrative Course 57-year-old male that presents to the ED for evaluation of chest pain. Patient was properly examined and was found to have signs and symptoms concerning for cardiac in nature. I did review patient's medical records. He was here about a week ago for similar. The time Dr. Henao had been on occasion and there was discussion whether patient may need a heart. At the time he was thought the patient could follow-up outpatient. Patient still has a lot of symptoms and during my evaluation patient having a lot of difficulty just speaking with me without feeling short of breath. He states complaints of the chest discomfort. Patient was given Nitropaste, started on aspirin. Labs and imaging were done in triage and were essentially unremarkable. No sign of ST elevation or sign of ischemia. BNP was ordered by me as he was not ordered in triage. A call has been placed to Dr. Henao to see what he would recommend which I suspect will likely be heart cath and admission. I was able to get in contact with Dr. Henao who agrees the patient is to be admitted. He wants the patient to be nothing by mouth after midnight, admit to medicine, start heparin and heart Tomorrow. Patient was told this and agrees with plan. Case was discussed with Dr. Patricia who agrees to admission Diagnosis Primary Impression: Unstable angina pectoris Admitting Information Admitting Physician Requests: Luis Fernando Cotto Jun 12, 2017 15:02
[2017-06-12] MEDS ORDERED: [UNRECOGNIZED DRUG - REMARK] SCH (15:45)
[2017-06-12] MEDS ORDERED: HEPARIN-D5W 25,000 U/250 ML 250 ML IV PRN ×3 (15:45→16:30)
[2017-06-12] MEDS ORDERED: DOCUSATE SODIUM 100 MG CAP PO PRN (16:00)
[2017-06-12] MEDS ORDERED: SODIUM CHLORIDE 0.9% FLUSH 10 ML FLUSH IV FLUSH PRN ×2 (16:00)
[2017-06-12] MEDS ORDERED: METOCLOPRAMIDE HCL 10 MG/2 ML VIAL IV PUSH PRN (16:00)
[2017-06-12] MEDS ORDERED: ACETAMINOPHEN 325 MG TAB PO PRN ×2 (16:00)
[2017-06-12] MEDS ORDERED: LACTULOSE SYRUP 20 GM/30 ML CUP PO PRN (16:00)
[2017-06-12] MEDS ORDERED: oxyCODONE/ACETAMINOPHEN 10 MG/325 MG TAB PO PRN (16:00)
[2017-06-12] MEDS ORDERED: SENNOSIDES 8.6 MG TAB PO PRN (16:00)
[2017-06-12] MEDS ORDERED: TEMAZEPAM 15 MG CAP PO PRN (16:00)
[2017-06-12] MEDS ORDERED: oxyCODONE/ACETAMINOPHEN 5 MG/325 MG TAB PO PRN (16:00)
[2017-06-12] MEDS ORDERED: MAGNESIUM HYDROXIDE SUSP 30 ML CUP PO PRN (16:00)
[2017-06-12] MEDS ORDERED: BISACODYL 10 MG SUPP RECTAL PRN (16:00)
[2017-06-12] MEDS ORDERED: MORPHINE SULFATE 2 MG/ML INJ IV PUSH PRN (16:00)
[2017-06-12] MEDS ORDERED: GLUCAGON 1 MG/ML VIAL OTHER PRN (16:00)
[2017-06-12] MEDS ORDERED: NALOXONE HCL 0.4 MG/ML AMP IV PUSH PRN (16:00)
[2017-06-12] MEDS ORDERED: DEXTROSE 50% IN WATER 50 ML VIAL(D50) IV PUSH PRN (16:00)
--- NOTE | 2017-06-12 16:09 | HHI.HP ---
[facility] Service [facility] Primary Care Physician Michael Jacques DO Admission Diagnosis unstable angina, EF of 19%, chest pain Diagnoses: (1) Obese Diagnosis: Secondary (2) Diabetes mellitus Diagnosis: Secondary (3) Hypertension Diagnosis: Secondary (4) Hyperlipidemia Diagnosis: Secondary (5) CAD (coronary artery disease) Diagnosis: Principal (6) Hx of CABG Diagnosis: Principal (7) Unstable angina pectoris Diagnosis: Principal (8) Decreased cardiac ejection fraction Diagnosis: Secondary Chief Complaint: Chest pain Travel History International Travel<30 Days: No Contact w/Intl Traveler <30 Da: No Traveled to Known Affected Are: No History of Present Illness Patient is a 57-year-old male presenting to the emergency department for evaluation of left-sided chest pain worse when trying to raise his left arm. As well as shortness of breath. Patient has had this on and off for the past 2-3 weeks. Patient was followed with Dr. Henao of cardiology that test that showed a significant ejection fraction reduction from 40% down to 19%. Dr. Henao wants the patient to be placed on heparin and to be followed for cardiac catheterization tomorrow. Symptoms have not improved been feeling very weak and tired as well as short of breath with any movement has no numbness and tingling in left arm is improved but still some chest discomfort and pressure- like something sitting on his chest chest pain is 6 out of 10 taken aspirin today has history of high blood pressure and cholesterol does take Plavix Will be placed in observation will put on heparin drip and Dr. Henao will take for cardiac catheterization tomorrow Review of Systems Constitutional: COMPLAINS OF: Fatigue, DENIES: Diaphoretic episodes, Fever, Weight gain, Weight loss, Chills, Dizziness, Change in appetite, Night Sweats Endocrine: DENIES: Heat/cold intolerance, Polydipsia, Polyuria, Polyphagia Eyes: DENIES: Blurred vision, Diplopia, Eye inflammation, Eye pain, Vision loss , Photosensitivity, Double Vision Ears, nose, mouth, throat: DENIES: Tinnitus, Hearing loss, Vertigo, Nasal discharge, Oral lesions, Throat pain, Hoarseness, Ear Pain, Running Nose, Epistaxis, Sinus Pain, Toothache, Odynophagia Respiratory: COMPLAINS OF: Shortness of breath, DENIES: Apneas, Cough, Snoring , Wheezing, Hemoptysis, Sputum production Cardiovascular: COMPLAINS OF: Chest pain, Dyspnea on Exertion, DENIES: Palpitations, Syncope, PND, Lower Extremity Edema, Orthopnea, Claudication Gastrointestinal: DENIES: Abdominal pain, Black stools, Bloody stools, Constipation, Diarrhea, Nausea, Vomiting, Difficulty Swallowing, Anorexia Musculoskeletal: COMPLAINS OF: Back pain, DENIES: Joint pain, Muscle aches, Stiffness, Joint Swelling, Neck pain Integumentary: DENIES: Abnormal pigmentation, Nail changes, Pruritus, Rash Hematologic/lymphatic: DENIES: Bruising, Lymphadenopathy Immunologic/allergic: DENIES: Eczema, Urticaria Neurologic: DENIES: Abnormal gait, Headache, Localized weakness, Paresthesias, Seizures, Speech Problems, Tremor, Poor Balance Psychiatric: DENIES: Anxiety, Confusion, Mood changes, Depression, Hallucinations, Agitation, Suicidal Ideation, Homicidal Ideation, Delusions Except as stated in HPI: all other systems reviewed are Neg Past Family Social History Past Medical History Chest pain History of [place] History of coronary artery bypass graft Hypertension Hyperlipidemia Obesity COPD tobacco abuse Diabetes mellitus Known coronary artery disease Chronic back pain with history of lumbar surgeries History of ulcers GERD Past Surgical History Coronary artery bypass graft 3 Appendectomy . skin grafts to right foot as a child Multiple surgeries on right foot Back surgeries 3 in the lumbar region Reported Medications Reported Meds & Active Scripts Active Carvedilol 6.25 Mg Tab 6.25 Mg PO BID Reported Glucophage (Metformin HCl) 850 Mg Tab 850 Mg PO TIDPC Enalapril (Enalapril Maleate) 2.5 Mg Tab 2.5 Mg PO DAILY Pravastatin 40 Mg Tab 40 Mg PO DAILY Glyburide 2.5 Mg Tab 2.5 Mg PO BID Take with meals at the same time each day Clopidogrel (Clopidogrel Bisulfate) 75 Mg Tab 75 Mg PO DAILY Allergies: Coded Allergies: iodine (Unverified Allergy, Severe, Swelling, 06/12/17) potassium iodide (Unverified Allergy, Severe, Swelling, 06/12/17) povidone-iodine (Unverified Allergy, Severe, Swelling, 06/12/17) shellfish derived (Unverified Allergy, Severe, 06/12/17) sodium iodide (Unverified Allergy, Severe, Swelling, 06/12/17) sodium iodide (Unverified Allergy, Severe, Swelling, 06/12/17) Active Ordered Medications Current Medications Aspirin (Aspirin) 325 mg ONCE ONCE PO Last administered on 06/12/17at 15:00; Start 06/12/17 at 14:30; Stop 06/12/17 at 14:37; Status DC Nitroglycerin (Nitroglycerin 2% Oint) 1 inch ONCE ONCE TOPICAL Last administered on 06/12/17at 15:00; Start 06/12/17 at 14:30; Stop 06/12/17 at 14:37 ; Status DC Heparin Sodium/ Dextrose 250 ml @ 0 mls/hr TITRATE PRN IV Coagulation Management; Start 06/12/17 at 15:45; Status UNV Insulin Aspart (NovoLOG SUPPLEMENTAL SCALE) 1 ACHS SLIDING SCALE SQ ; Start at 17:00 Dextrose (D50w (Vial) Inj) 50 ml UNSCH PRN IV PUSH HYPOGLYCEMIA-SEE COMMENTS; Start 06/12/17 at 16:00 Glucagon (Glucagon Inj) 1 mg UNSCH PRN OTHER HYPOGLYCEMIA-SEE COMMENTS; Start 06/12/17 at 16:00 Miscellaneous Information PHARMACY NEEDS HT/ WT... 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 SKIN: No rashes, ecchymoses or lesions. Cool and dry. HEAD: Atraumatic. Normocephalic. No temporal or scalp tenderness. EYES: Pupils equal round and reactive. Extraocular motions intact. No scleral icterus. No injection or drainage. ENT: Nose without bleeding, purulent drainage or septal hematoma. Throat without erythema, tonsillar hypertrophy or exudate. Uvula midline. Airway patent. NECK: Trachea midline. No JVD or lymphadenopathy. Supple, nontender, no meningeal signs. CARDIOVASCULAR: Regular rate and rhythm without murmurs, gallops, or rubs. S1- S2 no S3 or S4 RESPIRATORY: Clear to auscultation. Breath sounds equal bilaterally. No wheezes , rales, or rhonchi. GASTROINTESTINAL: Abdomen soft, non-tender, nondistended. No hepato-splenomegaly , or palpable masses. No guarding. Obese MUSCULOSKELETAL: Extremities without clubbing, cyanosis, or edema. No joint tenderness, effusion, or edema noted. No calf tenderness. Negative Homans sign bilaterally. NEUROLOGICAL: Awake and alert. Cranial nerves II through XII intact. Motor and sensory grossly within normal limits. Five out of 5 muscle strength in all muscle groups. Normal speech. Insight and judgment is good Mood behaviors appropriate Laboratory Laboratory Tests Test 06/12/17 12:37 White Blood Count 5.6 Red Blood Count 5.32 Hemoglobin 14.0 Hematocrit 42.3 Mean Corpuscular Volume 79.5 Mean Corpuscular Hemoglobin 26.3 Mean Corpuscular Hemoglobin Concent 33.0 Red Cell Distribution Width 15.0 Platelet Count 172 Mean Platelet Volume 8.5 Neutrophils (%) (Auto) 49.8 Lymphocytes (%) (Auto) 35.6 Monocytes (%) (Auto) 11.1 Eosinophils (%) (Auto) 2.4 Basophils (%) (Auto) 1.1 Neutrophils # (Auto) 2.8 Lymphocytes # (Auto) 2.0 Monocytes # (Auto) 0.6 Eosinophils # (Auto) 0.1 Basophils # (Auto) 0.1 CBC Comment DIFF FINAL Differential Comment Prothrombin Time 10.9 Prothromb Time International Ratio 1.1 Activated Partial Thromboplast Time 23.1 Blood Urea Nitrogen 14 Creatinine 1.07 Random Glucose 248 Total Protein 7.4 Albumin 3.7 Calcium Level 9.2 Magnesium Level 1.9 Alkaline Phosphatase 132 Aspartate Amino Transf (AST/SGOT) 26 Alanine Aminotransferase (ALT/SGPT) 43 Total Bilirubin 0.6 Sodium Level 140 Potassium Level 4.3 Chloride Level 106 Carbon Dioxide Level 24.7 Anion Gap 9 Estimat Glomerular Filtration Rate 71 Total Creatine Kinase 128 Creatine Kinase MB 3.3 Troponin I LESS THAN 0.02 Lipase 189 Result Diagram: 06/12/17 1237 06/12/17 1237 Imaging Last Impressions Chest X-Ray 06/12/17 1225 Signed Impressions: Service Date/Time: Monday, June 12, 2017 13:08 - CONCLUSION: No acute disease. No significant change has occurred. MD Alma Covington VTE Risk Assessment Capbaltazar VTE Risk Assessment: Mod/High Risk (score >= 2) Caprini Risk Assessment Model Point Value = 1 Point Value = 2 Point Value = 3 Point Value = 5 Age 41-60 Minor surgery BMI > 25 kg/m2 Swollen legs Varicose veins or History of unexplained or recurrent spontaneous Oral contraceptives or hormone replacement Sepsis (< 1 month) Serious lung disease, including pneumonia (< 1 month) Abnormal pulmonary function Acute myocardial infarction Congestive heart failure (< 1 month) History of inflammatory bowel disease Medical patient at bed rest Age 61-74 Arthroscopic surgery Major open surgery (> 45 min) Laparoscopic surgery (> 45 min) Malignancy Confined to bed (> 72 hours) Immobilizing plaster cast Central venous access Age >= 75 History of VTE Family history of VTE Factor V Leiden Prothrombin [id number] Lupus anticoagulant Anticardiolipin antibodies Elevated serum homocysteine Heparin-induced thrombocytopenia Other congenital or acquired thrombophilia Stroke (< 1 month) Elective arthroplasty Hip, pelvis, or leg fracture Acute spinal cord injury (< 1 month) Prophylaxis Regimen Total Risk Factor Score Risk Level Prophylaxis Regimen 0-1 Low Early ambulation 2 Moderate Order ONE of the following: *Sequential Compression Device (SCD) *Heparin 5000 units SQ BID 3-4 Higher Order ONE of the following medications: *Heparin 5000 units SQ TID *Enoxaparin/Lovenox 40 mg SQ daily (WT < 150 kg, CrCl > 30 mL/min) *Enoxaparin/Lovenox 30 mg SQ daily (WT < 150 kg, CrCl > 10-29 mL/min) *Enoxaparin/Lovenox 30 mg SQ BID (WT < 150 kg, CrCl > 30 mL/min) AND/OR *Sequential Compression Device (SCD) 5 or more Highest Order ONE of the following medications: *Heparin 5000 units SQ TID (Preferred with Epidurals) *Enoxaparin/Lovenox 40 mg SQ daily (WT < 150 kg, CrCl > 30 mL/min) *Enoxaparin/Lovenox 30 mg SQ daily (WT < 150 kg, CrCl > 10-29 mL/min) *Enoxaparin/Lovenox 30 mg SQ BID (WT < 150 kg, CrCl > 30 mL/min) AND *Sequential Compression Device (SCD) Assessment and Plan Problem List: (1) Hx of CABG ICD Code: Z95.1 - Presence of aortocoronary bypass graft (2) Decreased cardiac ejection fraction ICD Code: R93.1 - Abnormal findings on diagnostic imaging of heart and coronary circulation (3) Hypertension ICD Code: I10 - Essential (primary) hypertension (4) Obese ICD Code: E66.9 - Obesity, unspecified (5) Hyperlipidemia ICD Code: E78.5 - Hyperlipidemia, unspecified (6) CAD (coronary artery disease) ICD Code: I25.10 - Atherosclerotic heart disease of [place] coronary artery without angina pectoris (7) Diabetes mellitus ICD Code: E11.9 - Type 2 diabetes mellitus without complications (8) Unstable angina pectoris ICD Code: I20.0 - Unstable angina Status: Acute Assessment and Plan Unstable angina versus atypical chest pain will place on heparin drip and consult Dr. Henao of cardiology morphine and nitroglycerin as needed as well as Percocet and Tylenol Decreased cardiac ejection fracture to undergo cardiac catheterization tomorrow with Dr. Henao continue on heparin drip Diabetes mellitus continue on sliding scale coverage with Accu-Cheks before meals and at bedtime hold his Glucophage and metformin in light of cardiac catheterization tomorrow Keep n.p.o. after midnight Hypertension resume home medications Allergy to iodine Coronary artery disease with history of CABG continue on heparin drip and consult Dr. Henao COPD tobacco oxygen as needed GERD continue on Pepcid Chronic back pain continue on pain meds as needed DVT and GI prophylaxis Await cardiac catheterization results Code Status Full code Discussed Condition With Emergency room and RN and patient Scheduled to undergo cardiac catheterization with Dr. Henao tomorrow continue on heparin drip Lavelle Patricia DO Jun 12, 2017 16:09
[2017-06-12 16:21] VITALS: BP 116/63; PULSE 58; RESP 22; O2SAT 100
[2017-06-12] MEDS ORDERED: MORPHINE SULFATE 4 MG/ML INJ IV PUSH PRN ×2 (16:30)
[2017-06-12 16:49] LABS: HEMATOCRIT 41.1 % (39.0-51.0); HEMOGLOBIN 13.8 GM/DL (13.0-17.0); MEAN CELL VOLUME 78.9 FL (80.0-100.0); MEAN CORPUSCULAR HEMOGLOBIN 26.4 PG (27.0-34.0); MEAN CORPUSCULAR HGB CONC 33.5 % (32.0-36.0); MEAN PLATELET VOLUME 8.5 FL (7.0-11.0); PLATELET COUNT 170 TH/MM3 (150-450); RED BLOOD COUNT 5.21 MIL/MM3 (4.50-5.90); RED CELL DISTRIBUTION WIDTH 15.3 % (11.6-17.2); WHITE BLOOD COUNT 5.5 TH/MM3 (4.0-11.0)
[2017-06-12] MEDS: INSULIN ASPART SUPPLEMENTAL SCALE SQ SCH ×2 (16:55→21:34)
[2017-06-12 17:03] LABS: INTERNATIONAL NORMALIZED RATIO 1.1 RATIO; PROTHROMBIN TIME - PATIENT 11.1 SEC (9.8-11.6)
[2017-06-12 17:17] LABS: TROPONIN I LESS THAN 0.02 NG/ML (0.02-0.05)
--- NOTE | 2017-06-12 19:30 | EKG ---
Date Performed: 06/12/2017 Time Performed: 12:29:25 PTAGE: 57 years EKG: Sinus rhythm WITH OCCASIONAL SUPRAVENTRICULAR PREMATURE COMPLEXES POSSIBLE LEFT ATRIAL ENLARGEMENT Nonspecific T wave changes Compared to prior electrocardiogram, PACs are now present. DOCTOR: Francisco Soto Interpretating Date/Time 06/12/2017 19:29:53
[2017-06-12 19:37] VITALS: BP 131/78; PULSE 59; RESP 18; O2SAT 99
[2017-06-12] MEDS ORDERED: SODIUM CHLORIDE 0.9% FLUSH 10 ML FLUSH IV FLUSH SCH (21:00)
[2017-06-12] MEDS: SODIUM CHLORIDE 0.9% FLUSH 10 ML FLUSH IV FLUSH SCH (21:21)
[2017-06-12] MEDS: CARVEDILOL 6.25 MG TAB PO SCH (21:29)
[2017-06-12] MEDS: DOCUSATE SODIUM 50 MG/SENNA 8.6 MG TAB PO SCH (21:29)
[2017-06-12] MEDS: FAMOTIDINE 20 MG TAB PO SCH (21:29)
--- NOTE | 2017-06-12 21:47 | EKG ---
Date Performed: 06/12/2017 Time Performed: 16:51:10 PTAGE: 57 years EKG: SINUS BRADYCARDIA WITH OCCASIONAL SUPRAVENTRICULAR PREMATURE COMPLEXES POSSIBLE LEFT ATRIAL ENLARGEMENT Nonspecific T wave changes ABNORMAL ECG No significant change from prior electrocardiogr am. PREVIOUS TRACING : 05/30/2017 01.23 DOCTOR: Francisco Soto Interpretating Date/Time 06/12/2017 21:46:21
[2017-06-12 22:09] LABS: TROPONIN I LESS THAN 0.02 NG/ML (0.02-0.05)
[2017-06-13] VITALS (14 sets, daily range): BP systolic 103–131; BP diastolic 54–88; PULSE 60–72; RESP 16–20; TEMP 97–98.3; O2SAT 97–99
[2017-06-13 03:05] LABS: AUTOMATED NEUTROPHIL # 2.7 TH/MM3 (1.8-7.7); BASOPHIL # 0.1 TH/MM3 (0-0.2); BASOPHIL % 1.4 % (0.0-2.0); EOSINOPHIL # 0.1 TH/MM3 (0-0.4); EOSINOPHIL % 2.4 % (0.0-4.0); HEMATOCRIT 39.3 % (39.0-51.0); HEMOGLOBIN 13.2 GM/DL (13.0-17.0); LYMPH % 38.9 % (9.0-44.0); LYMPHOCYTE # 2.3 TH/MM3 (1.0-4.8); MEAN CELL VOLUME 78.8 FL (80.0-100.0); MEAN CORPUSCULAR HEMOGLOBIN 26.5 PG (27.0-34.0); MEAN CORPUSCULAR HGB CONC 33.6 % (32.0-36.0); MEAN PLATELET VOLUME 8.4 FL (7.0-11.0); MONO % 11.2 % (0.0-8.0); MONOCYTE # 0.7 TH/MM3 (0-0.9); NEUT % 46.1 % (16.0-70.0); PLATELET COUNT 153 TH/MM3 (150-450); RED BLOOD COUNT 4.99 MIL/MM3 (4.50-5.90); RED CELL DISTRIBUTION WIDTH 14.9 % (11.6-17.2); WHITE BLOOD COUNT 5.9 TH/MM3 (4.0-11.0)
[2017-06-13 03:18] LABS: ALBUMIN 3.3 GM/DL (3.4-5.0); AST (GOT) 26 U/L (15-37); BICARBONATE 26.3 MEQ/L (21.0-32.0); BLOOD UREA NITROGEN 15 MG/DL (7-18); CALCIUM 8.5 MG/DL (8.5-10.1); CHLORIDE 110 MEQ/L (98-107); CHOLESTEROL 136 MG/DL (120-200); CREATININE 0.89 MG/DL (0.60-1.30); GLOMERULAR FILTRATION RATE 87 ML/MIN (>89); GLUCOSE,RANDOM 150 MG/DL (74-106); MAGNESIUM 1.8 MG/DL (1.5-2.5); SODIUM (NA) 144 MEQ/L (136-145); TRIGLYCERIDES 128 MG/DL (42-150)
[2017-06-13 03:27] LABS: ALKALINE PHOSPHATASE 104 U/L (45-117); ALT (GPT) 40 U/L (12-78); CHOLESTEROL/ HDL RATIO 4.02 RATIO; FREE T4 1.04 NG/DL (0.76-1.46); HDL CHOLESTEROL 33.8 MG/DL (40.0-60.0); LDL CHOLESTEROL 77 MG/DL (0-99); PHOSPHORUS 3.8 MG/DL (2.5-4.9); TOTAL BILIRUBIN ADULT 0.4 MG/DL (0.2-1.0); TOTAL PROTEIN 6.5 GM/DL (6.4-8.2); TROPONIN I LESS THAN 0.02 NG/ML (0.02-0.05)
[2017-06-13] MEDS: INSULIN ASPART SUPPLEMENTAL SCALE SQ SCH ×4 (08:00→20:31)
[2017-06-13] MEDS: ASPIRIN EC 325 MG TABEC PO SCH ×2 (09:00→10:08)
[2017-06-13] MEDS: CLOPIDOGREL 75 MG TAB PO SCH ×2 (09:00→10:09)
[2017-06-13] MEDS ORDERED: PRAVASTATIN SOD 40 MG TAB PO SCH (09:00)
[2017-06-13] MEDS: DOCUSATE SODIUM 50 MG/SENNA 8.6 MG TAB PO SCH ×2 (09:00→20:31)
[2017-06-13] MEDS: SODIUM CHLORIDE 0.9% FLUSH 10 ML FLUSH IV FLUSH SCH ×2 (09:00→20:31)
[2017-06-13] MEDS: ENALAPRIL MALEATE 2.5 MG TAB PO SCH (09:00)
[2017-06-13] MEDS: CARVEDILOL 6.25 MG TAB PO SCH ×2 (09:34→20:44)
[2017-06-13] MEDS: FAMOTIDINE 20 MG TAB PO SCH ×2 (09:34→20:31)
--- NOTE | 2017-06-13 10:36 | HHI.PR ---
Subjective Remarks Patient is a 57-year-old male presenting to the emergency department for evaluation of left-sided chest pain worse when trying to raise his left arm. As well as shortness of breath. Patient has had this on and off for the past 2-3 weeks. Patient was followed with Dr. Henao of cardiology that test that showed a significant ejection fraction reduction from 40% down to 19%. Dr. Henao wants the patient to be placed on heparin and to be followed for cardiac catheterization tomorrow. Symptoms have not improved been feeling very weak and tired as well as short of breath with any movement has no numbness and tingling in left arm is improved but still some chest discomfort and pressure- like something sitting on his chest chest pain is 6 out of 10 taken aspirin today has history of high blood pressure and cholesterol does take Plavix Will be placed in observation will put on heparin drip and Dr. Henao will take for cardiac catheterization tomorrow 06-13 patient to go for cardiac catheterization later today Patient states pain is 3-4 out of 10 currently States oxygen helps his chest pain Discussed with patient and RN A.m. labs Objective Vitals Vital Signs Date Time Temp Pulse Resp B/P (MAP) Pulse Ox O2 Delivery O2 Flow Rate FiO2 06/13/17 04:56 64 16 103/54 (70) 99 Nasal Cannula 2.00 06/13/17 00:51 64 16 115/68 (84) 98 Nasal Cannula 2.00 06/12/17 21:15 21 06/12/17 19:37 59 18 131/78 (95) 99 Nasal Cannula 2.00 06/12/17 16:21 58 22 116/63 (80) 100 Room Air 06/12/17 14:16 16 100 Room Air 06/12/17 12:22 98.0 62 22 124/62 (82) 99 Result Diagram: 06/13/17 0250 06/13/17 0250 Other Results Laboratory Tests Test 06/12/17 12:37 06/12/17 16:25 06/12/17 21:30 06/12/17 23:00 White Blood Count 5.6 TH/MM3 5.5 TH/MM3 Red Blood Count 5.32 MIL/MM3 5.21 MIL/MM3 Hemoglobin 14.0 GM/DL 13.8 GM/DL Hematocrit 42.3 % 41.1 % Mean Corpuscular Volume 79.5 FL 78.9 FL Mean Corpuscular Hemoglobin 26.3 PG 26.4 PG Mean Corpuscular Hemoglobin Concent 33.0 % 33.5 % Red Cell Distribution Width 15.0 % 15.3 % Platelet Count 172 TH/MM3 170 TH/MM3 Mean Platelet Volume 8.5 FL 8.5 FL Neutrophils (%) (Auto) 49.8 % Lymphocytes (%) (Auto) 35.6 % Monocytes (%) (Auto) 11.1 % Eosinophils (%) (Auto) 2.4 % Basophils (%) (Auto) 1.1 % Neutrophils # (Auto) 2.8 TH/MM3 Lymphocytes # (Auto) 2.0 TH/MM3 Monocytes # (Auto) 0.6 TH/MM3 Eosinophils # (Auto) 0.1 TH/MM3 Basophils # (Auto) 0.1 TH/MM3 CBC Comment DIFF FINAL Differential Comment Prothrombin Time 10.9 SEC 11.1 SEC Prothromb Time International Ratio 1.1 RATIO 1.1 RATIO Activated Partial Thromboplast Time 23.1 SEC 20.3 SEC 31.4 SEC Blood Urea Nitrogen 14 MG/DL Creatinine 1.07 MG/DL Random Glucose 248 MG/DL Total Protein 7.4 GM/DL Albumin 3.7 GM/DL Calcium Level 9.2 MG/DL Magnesium Level 1.9 MG/DL Alkaline Phosphatase 132 U/L Aspartate Amino Transf (AST/SGOT) 26 U/L Alanine Aminotransferase (ALT/SGPT) 43 U/L Total Bilirubin 0.6 MG/DL Sodium Level 140 MEQ/L Potassium Level 4.3 MEQ/L Chloride Level 106 MEQ/L Carbon Dioxide Level 24.7 MEQ/L Anion Gap 9 MEQ/L Estimat Glomerular Filtration Rate 71 ML/MIN Total Creatine Kinase 128 U/L 121 U/L 85 U/L Creatine Kinase MB 3.3 NG/ML 2.7 NG/ML Troponin I LESS THAN 0.02 NG/ML LESS THAN 0.02 NG/ML LESS THAN 0.02 NG/ML Lipase 189 U/L B-Type Natriuretic Peptide 336 PG/ML Test 06/13/17 02:50 06/13/17 06:45 White Blood Count 5.9 TH/MM3 Red Blood Count 4.99 MIL/MM3 Hemoglobin 13.2 GM/DL Hematocrit 39.3 % Mean Corpuscular Volume 78.8 FL Mean Corpuscular Hemoglobin 26.5 PG Mean Corpuscular Hemoglobin Concent 33.6 % Red Cell Distribution Width 14.9 % Platelet Count 153 TH/MM3 Mean Platelet Volume 8.4 FL Neutrophils (%) (Auto) 46.1 % Lymphocytes (%) (Auto) 38.9 % Monocytes (%) (Auto) 11.2 % Eosinophils (%) (Auto) 2.4 % Basophils (%) (Auto) 1.4 % Neutrophils # (Auto) 2.7 TH/MM3 Lymphocytes # (Auto) 2.3 TH/MM3 Monocytes # (Auto) 0.7 TH/MM3 Eosinophils # (Auto) 0.1 TH/MM3 Basophils # (Auto) 0.1 TH/MM3 CBC Comment DIFF FINAL Differential Comment Activated Partial Thromboplast Time 31.0 SEC 32.5 SEC Blood Urea Nitrogen 15 MG/DL Creatinine 0.89 MG/DL Random Glucose 150 MG/DL Total Protein 6.5 GM/DL Albumin 3.3 GM/DL Calcium Level 8.5 MG/DL Phosphorus Level 3.8 MG/DL Magnesium Level 1.8 MG/DL Alkaline Phosphatase 104 U/L Aspartate Amino Transf (AST/SGOT) 26 U/L Alanine Aminotransferase (ALT/SGPT) 40 U/L Total Bilirubin 0.4 MG/DL Sodium Level 144 MEQ/L Potassium Level 3.8 MEQ/L Chloride Level 110 MEQ/L Carbon Dioxide Level 26.3 MEQ/L Anion Gap 8 MEQ/L Estimat Glomerular Filtration Rate 87 ML/MIN Total Creatine Kinase 71 U/L Troponin I LESS THAN 0.02 NG/ML Triglycerides Level 128 MG/DL Cholesterol Level 136 MG/DL LDL Cholesterol 77 MG/DL HDL Cholesterol 33.8 MG/DL Cholesterol/HDL Ratio 4.02 RATIO Free Thyroxine 1.04 NG/DL Thyroid Stimulating Hormone 3rd Gen 1.360 uIU/ML Imaging Last Impressions Chest X-Ray 06/12/17 1225 Signed Impressions: Service Date/Time: Monday, June 12, 2017 13:08 - CONCLUSION: No acute disease. No significant change has occurred. Evan Hampton MD Objective Remarks GENERAL: This is a well-nourished, well-developed patient, in mild to moderate distress. SKIN: No rashes, ecchymoses or lesions. Cool and dry. HEAD: Atraumatic. Normocephalic. No temporal or scalp tenderness. EYES: Pupils equal round and reactive. Extraocular motions intact. No scleral icterus. No injection or drainage. ENT: Nose without bleeding, purulent drainage or septal hematoma. Throat without erythema, tonsillar hypertrophy or exudate. Uvula midline. Airway patent. NECK: Trachea midline. No JVD or lymphadenopathy. Supple, nontender, no meningeal signs. CARDIOVASCULAR: Regular rate and rhythm without murmurs, gallops, or rubs. S1- S2 no S3 or S4 RESPIRATORY: Clear to auscultation. Breath sounds equal bilaterally. No wheezes , rales, or rhonchi. GASTROINTESTINAL: Abdomen soft, non-tender, nondistended. No hepato-splenomegaly , or palpable masses. No guarding. Obese MUSCULOSKELETAL: Extremities without clubbing, cyanosis, or edema. No joint tenderness, effusion, or edema noted. No calf tenderness. Negative Homans sign bilaterally. NEUROLOGICAL: Awake and alert. Cranial nerves II through XII intact. Motor and sensory grossly within normal limits. Five out of 5 muscle strength in all muscle groups. Normal speech. Insight and judgment is good Mood behaviors appropriate Medications and IVs Current Medications Aspirin (Aspirin) 325 mg ONCE ONCE PO Last administered on 06/12/17at 15:00; Start 06/12/17 at 14:30; Stop 06/12/17 at 14:37; Status DC Nitroglycerin (Nitroglycerin 2% Oint) 1 inch ONCE ONCE TOPICAL Last administered on 06/12/17at 15:00; Start 06/12/17 at 14:30; Stop 06/12/17 at 14:37 ; Status DC Heparin Sodium/ Dextrose 250 ml @ 0 mls/hr TITRATE PRN IV Coagulation Management; Start 06/12/17 at 15:45; Status UNV Insulin Aspart (NovoLOG SUPPLEMENTAL SCALE) 1 ACHS SLIDING SCALE SQ ; Start at 17:00 Dextrose (D50w (Vial) Inj) 50 ml UNSCH PRN IV PUSH HYPOGLYCEMIA-SEE COMMENTS; Start 06/12/17 at 16:00 Glucagon (Glucagon Inj) 1 mg UNSCH PRN OTHER HYPOGLYCEMIA-SEE COMMENTS; Start 06/12/17 at 16:00 Miscellaneous Information PHARMACY NEEDS HT/ WT... Q15M .XX ; Start 06/12/17 at 15:45; Stop 06/12/17 at 16:36; Status DC Carvedilol (Coreg) 6.25 mg BID PO Last administered on 06/13/17at 09:34; Start 06/12/17 at 21:00 Clopidogrel Bisulfate (Plavix) 75 mg DAILY PO Last administered on 06/13/17at 10 :09; Start 06/13/17 at 09:00 Enalapril Maleate (Vasotec) 2.5 mg DAILY PO ; Start 06/13/17 at 09:00 Pravastatin Sodium (Pravachol) 40 mg DAILY PO Last administered on 06/13/17at 09 :34; Start 06/13/17 at 09:00 Sodium Chloride (NS Flush) 2 ml BID IV FLUSH ; Start 06/12/17 at 21:00; Stop at 21:00; Status DC Sodium Chloride (NS Flush) 2 ml UNSCH PRN IV FLUSH FLUSH AFTER USING IV ACCESS ; Start 06/12/17 at 16:00; Stop 06/12/17 at 16:35; Status DC Aspirin (Ecotrin Ec) 325 mg DAILY PO Last administered on 06/13/17at 10:08; Start 06/13/17 at 09:00 Nitroglycerin (Nitrostat Sl) 0.4 mg Q5M PRN SL CHEST PAIN; Start 06/12/17 at 16 :00 Acetaminophen (Tylenol) 650 mg Q6H PRN PO HEADACHE OR TEMP > 101 F; Start 06/12 at 16:00 Docusate Sodium (Colace) 100 mg BID PRN PO CONSTIPATION; Start 06/12/17 at 16: 00; Status UNV Alprazolam (Xanax) 0.25 mg Q8H PRN PO ANXIETY; Start 06/12/17 at 16:00 Ondansetron HCl (Zofran Inj) 4 mg Q6H PRN IV PUSH NAUSEA OR VOMITING; Start at 16:00 Heparin Sodium/ Dextrose 250 ml @ 0 mls/hr TITRATE PRN IV Coagulation Management; Start 06/12/17 at 16:00; Stop 06/12/17 at 16:18; Status DC Famotidine (Pepcid) 20 mg BID PO Last administered on 06/13/17at 09:34; Start at 21:00 Sodium Chloride (NS Flush) 2 ml UNSCH PRN IV FLUSH FLUSH AFTER USING IV ACCESS ; Start 06/12/17 at 16:00 Sodium Chloride (NS Flush) 2 ml BID IV FLUSH ; Start 06/12/17 at 21:00 Acetaminophen (Tylenol) 650 mg Q4H PRN PO TEMP > 100.4; Start 06/12/17 at 16:00 Metoclopramide HCl (Reglan Inj) 5 mg Q6H PRN IV PUSH NAUSEA OR VOMITING; Start 06/12/17 at 16:00 Temazepam (Restoril) 15 mg HS PRN PO INSOMNIA; Start 06/12/17 at 16:00 Acetaminophen (Tylenol) 650 mg Q6H PRN PO PAIN SCALE 1 TO 2; Start 06/12/17 at 16:00 Oxycodone/ Acetaminophen (Percocet 5-325 Mg) 1 tab Q6H PRN PO PAIN SCALE 3 TO 5; Start 06/12/17 at 16:00 Oxycodone/ Acetaminophen (Percocet 10-325 Mg) 1 tab Q6H PRN PO PAIN SCALE 6 TO 10; Start 06/12/17 at 16:00 Morphine Sulfate (Morphine Inj) 2 mg Q3H PRN IV PUSH Pain 3-5; if unable to take PO; Start 06/12/17 at 16:00 Morphine Sulfate (Morphine Inj) 4 mg Q3H PRN IV PUSH Pain 6-10;if unable to take PO; Start 06/12/17 at 16:30 Morphine Sulfate (Morphine Inj) 4 mg Q3H PRN IV PUSH BREAKTHROUGH PAIN; Start 06/12/17 at 16:30 Naloxone HCl (Narcan Inj) 0.4 mg UNSCH PRN IV PUSH SEE LABEL COMMENTS; Start at 16:00 Senna/Docusate Sodium (Zenaida-Colace) 1 tab BID PO Last administered on at 21:29; Start 06/12/17 at 21:00 Magnesium Hydroxide (Milk Of Magnesia Liq) 30 ml Q12H PRN PO Mild constipation ; Start 06/12/17 at 16:00 Sennosides (Senokot) 17.2 mg Q12H PRN PO Moderate constipation; Start 06/12/17 at 16:00 Bisacodyl (Dulcolax Supp) 10 mg DAILY PRN RECTAL SEVERE CONSITIPATION; Start at 16:00 Lactulose (Lactulose Liq) 30 ml DAILY PRN PO SEVERE CONSITIPATION; Start at 16:00 Heparin Sodium/ Dextrose 250 ml @ 10 mls/hr TITRATE PRN IV Coagulation Management Last administered on 06/12/17at 16:54; Start 06/12/17 at 16:30 A/P Problem List: (1) Hx of CABG ICD Code: Z95.1 - Presence of aortocoronary bypass graft (2) Decreased cardiac ejection fraction ICD Code: R93.1 - Abnormal findings on diagnostic imaging of heart and coronary circulation (3) Hypertension ICD Code: I10 - Essential (primary) hypertension (4) Obese ICD Code: E66.9 - Obesity, unspecified (5) Hyperlipidemia ICD Code: E78.5 - Hyperlipidemia, unspecified (6) CAD (coronary artery disease) ICD Code: I25.10 - Atherosclerotic heart disease of [place] coronary artery without angina pectoris (7) Diabetes mellitus ICD Code: E11.9 - Type 2 diabetes mellitus without complications (8) Unstable angina pectoris ICD Code: I20.0 - Unstable angina Status: Acute Assessment and Plan Unstable angina versus atypical chest pain will place on heparin drip and consult Dr. Henao of cardiology --morphine and nitroglycerin as needed as well as Percocet and Tylenol Decreased cardiac ejection fracture to undergo cardiac catheterization tomorrow with Dr. Henao continue on heparin drip Diabetes mellitus continue on sliding scale coverage with Accu-Cheks before meals and at bedtime hold his Glucophage and metformin in light of cardiac catheterization tomorrow Keep n.p.o. after midnight Hypertension resume home medications Allergy to iodine Coronary artery disease with history of CABG continue on heparin drip and consult Dr. Henao COPD tobacco oxygen as needed GERD continue on Pepcid Chronic back pain continue on pain meds as needed DVT and GI prophylaxis Await cardiac catheterization results Discharge Planning Pending cardiac clearance Lavelle Patricia DO Jun 13, 2017 10:36
[2017-06-13] MEDS: SODIUM CHLOR 0.9% 1000 ML INJ 1,000 ML IV SCH (13:10)
[2017-06-13] MEDS ORDERED: HEPARIN-NS/PF FLUSH BAG 2,000 ML IV FLUSH ONE (13:15)
[2017-06-13] MEDS ORDERED: methylPREDNISolone SOD SUCC 125 MG/2 ML VIAL ONE (13:21)
[2017-06-13] MEDS ORDERED: diphenhydrAMINE HCL 50 MG/ML VIAL ONE (13:21)
[2017-06-13] MEDS ORDERED: FAMOTIDINE 20 MG/2 ML VIAL ONE (13:21)
[2017-06-13] MEDS ORDERED: FAMOTIDINE 20 MG/2 ML VIAL IV ONE (13:22)
[2017-06-13] MEDS ORDERED: diphenhydrAMINE HCL 50 MG/ML VIAL IV ONE (13:23)
[2017-06-13] MEDS ORDERED: methylPREDNISolone SOD SUCC 125 MG/2 ML VIAL IV ONE (13:23)
[2017-06-13] MEDS ORDERED: MIDAZOLAM HCL 2 MG/2 ML VIAL ONE (13:31)
[2017-06-13] MEDS ORDERED: MIDAZOLAM HCL 2 MG/2 ML VIAL IV ONE (13:33)
[2017-06-13] MEDS ORDERED: FUROSEMIDE 40 MG/4 ML VIAL ONE ×2 (13:58)
[2017-06-13] MEDS ORDERED: FUROSEMIDE 40 MG/4 ML VIAL IV PUSH ONE (14:00)
[2017-06-13] MEDS ORDERED: MISC INFORMATION XX ONE (14:15)
[2017-06-13] MEDS ORDERED: SODIUM CHLORIDE 0.9% FLUSH 10 ML FLUSH IV FLUSH PRN (14:15)
--- NOTE | 2017-06-13 14:26 | MB ---
cc: Garrett Henao MD DATE: 06/13/2017 HISTORY OF PRESENT ILLNESS: Stanton is a very pleasant 57-year-old gentleman with history of cardiomyopathy, gated SPECT ejection fraction 19%, myocardial perfusion study in my office last month, severe MR, [place] Heart Association class IV, congestive heart failure, status post CABG, presents to the ER with severe shortness of breath at rest, admitted for further evaluation and management. Otherwise, denies any fevers, chills, cough, GI or bleeding, PND, orthopnea, syncope or dizziness. PAST MEDICAL HISTORY: As per history of present illness. The patient was also noted to have left-sided chest pain radiating to the left upper extremity in the emergency room, intermittently for 2 to 3 weeks prior to presentation to the ER, the patient's pain is noted to be 6/10. Includes arrhythmia, CHF, diabetes, hypertension, myocardial infarction, May 2012, appendectomy, skin grafts right foot as a child, back surgery x 3. SOCIAL HISTORY: Drinks alcohol socially. Denies tobacco use. ALLERGIES: IODINE, POTASSIUM IODIDE, POVIDONE IODINE, SHELLFISH DERIVED, SODIUM IODIDE. MEDICATIONS: Prior to admission: Carvedilol 6.25 b.i.d., Glucophage 850 three times a day, enalapril 2.5 daily, pravastatin 40 daily, glyburide 2.5 b.i.d., clopidogrel 75 daily. Medications in the hospital: IV heparin, Clopidogrel 75 mg daily, Vasotec 2.5 daily, Pravachol 40 daily, aspirin 325 daily, Coreg 6.25 b.i.d., Pepcid 20 b.i.d., sliding scale insulin, heparin drip per protocol. PHYSICAL EXAMINATION: VITAL SIGNS: Blood pressure 103/54, pulse 64, respiratory rate 16, sat 99% on 2 liters nasal cannula, temperature 98.0. GENERAL: He is alert and oriented x 3, in no acute distress. NECK: Supple. No JVD. No bruit. CARDIOVASCULAR: S1, S2. No murmurs, rubs or gallops. LUNGS: Clear to auscultation bilaterally. ABDOMEN: Soft, nontender, nondistended with positive bowel sounds. EXTREMITIES: No lower extremity edema. IMAGING STUDIES: Chest x-ray, no acute disease, no significant changes occurred. EKG: Normal sinus rhythm at 61 beats per minute, nonspecific ST-T wave changes. Repeat EKG: Sinus bradycardia at 54 beats per minute. There is deep asymmetric T-wave inversion in lead V2, negative amplitude 2-3 mm, also a biphasic T-wave V3, V4. LABORATORY DATA: White count 5.9, hemoglobin 13.2, hematocrit 39.3, platelet count 153. Sodium 144, potassium 3.8, chloride 110, bicarbonate 26.3, BUN 15, creatinine 0.89. LFTs normal. Troponin less than 0.02 x 4. BNP is 336. LDL is 77. INR is 1.1, PTT at 12:46 today is 33.1. DIAGNOSES: 1. Unstable angina. 2. [place] Cardi[employer] class IV angina. 3. Congestive heart failure. 4. Decompensated congestive heart failure. 5. Cardiomyopathy. 6. Severe mitral regurgitation. 7. [place] Heart Association class IV congestive heart failure. 8. Diabetes mellitus. 9. Chronic obstructive pulmonary disease. 10. Hyperglycemia. DISCUSSION: At this point in time, I think right and left heart catheterization are medically necessary. Further recommendations based on details of coronary anatomy, LV function and right heart pressures. He will need to not be given metformin or Glucophage for 48 hours post-procedure, which is not being given on his in hospital medication list. Garrett Henao MD AWC/TL , 01:38 PM , 02:25 PM
[2017-06-13] MEDS ORDERED: BACITRACIN OINT 0.9 GM PKT TOP ONE (15:00)
[2017-06-13] MEDS ORDERED: IOHEXOL 350 MG/ML 50 ML BTL (for Cath Lab) OTHER ONE (15:06)
--- NOTE | 2017-06-13 15:10 | MA ---
cc: Garrett Henao MD DATE: 06/13/2017 PROCEDURE PERFORMED: Right heart catheterization, left heart catheterization, left ventriculography, coronary angiography, DAI angiography. INDICATIONS: Coronary artery disease, status post CABG, unstable angina, [place] [employer] Class IV angina, cardiomyopathy, congestive heart failure, [place] Heart Association Class IV congestive heart failure, severe MR and diabetes. PROCEDURE: The patient was brought to the cardiac catheterization laboratory, prepped and draped in the usual sterile fashion. A 10 mL of 1% lidocaine was used to locally anesthetize the right common femoral artery. 4-English sheath was placed in the right common femoral artery, a 5-English sheath placed in the right common femoral vein. Right heart catheterization was performed first with the following findings: I was not able to wedge the balloon-tipped catheter into the wedge position with a fully inflated balloon and a partially inflated balloon. PA pressure was 60/4-26 which was actually probably the distal RV outflow tract. The RV pressure was 59/7-13. RA pressure 15/12-10. On room air the FA sat 97.6%, PA sat 62.7%, RA sat 65.7%. Cardiac output by Laine is 4.3 liters per minute. Cardiac index by Laine is 2.0 liters per meter2 per minute. SVR 1618.6 Dynes. Left heart catheterization was then performed with 4-English JR4 and JL4 catheters with the following findings: The LV pressure is 132/16-22. Ejection fraction 25 percent. CORONARY ARTERIES: Right coronary artery is dominant, has a proximal 60 percent stenosis. It is occluded in the midsegment. The DAI to LAD is widely patent. The LAD approaches the apex, appears to be a relatively small reference vessel diameter, probably 1 mm in diameter. There is sequential 70-80% stenoses just beyond the graft insertion site and then in the mid to distal LAD and in the distal LAD. The left main coronary artery has an ostial 50-60% stenosis. LAD is occluded at the first diagonal artery. The first diagonal is subtotally occluded in the ostial proximal segment with BRAYAN 2-3 flow into the vessel. This vessel reference vessel diameter is probably 1 mm in diameter. In the proximal midsegment there is a 95 percent stenosis. The vessel then bifurcates. The more medial branch is subtotally occluded and it is a 0.5 mm reference vessel diameter: The more lateral of the branches is again a small 0.25-0.5 mm vessel, again subtotally occluded in the midsegment. Left circumflex vessel was subtotally occluded after the second obtuse marginal vessel. There is sequential subtotal occlusions in the mid to distal AV groove, left circumflex supplying a very small 0.5 mm distal posterolateral artery. First obtuse marginal vessel again is a small vessel lumen reference vessel lumen diameter 1.0 mm, at least moderate disease in the proximal midsegment up to 50-60% angiographically. Second obtuse marginal vessel is a 1.5-2 mm reference vessel diameter, which appears to be occluded in the midsegment. Also note, there are left to right collaterals to a very small mid to distal right PDA which was estimated at 0.5 mm in diameter at most and it appears to be a relatively short segment of the PDA, maybe 25-30 mm with the point of occlusion in the more midsegment of the PDA. CONCLUSION: 1. Severe three-vessel coronary artery disease in a right dominant system. 2. Widely patent left internal mammary artery to the left anterior descending. 3. Cardiomyopathy of 25% to 30%. 4. Moderate to severely elevated right heart pressures as detailed above. 5. LVEDP equal to 22. DISCUSSION: We will get a CT surgery consult to determine risks and benefits of considering re-do bypass. Also, I do think intervention of the LAD would be very high risk given the small reference vessel diameter and the diffuseness of the disease and given the length of the lesions and the small diameter of the stents that would be placed, I would expect this to be very high risk for stent thrombosis which would be very high risk for sudden or mortality for the patient. We will also get a case management consult to determine the patient's eligibility for heart transplant. In the meantime, we will continue optimal medical therapy with aspirin and Plavix. We will restart his heparin drip without a bolus 3 hours after the sheath is out. Continue his statin. 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 We will followup daily BMP and BNP. MD KARL Vincent/TIERRA , 02:11 PM , 03:08 PM
[2017-06-13] MEDS ORDERED: HEPARIN-D5W 25,000 U/250 ML 250 ML IV PRN (16:15)
[2017-06-13 16:55] LABS: HEMOGLOBIN A1C 9.8 % (4.3-6.0)
[2017-06-13] MEDS: NITROGLYCERIN 0.4 MG SL 25 TABS/BTL SL PRN ×2 (20:29→20:35)
[2017-06-13] MEDS: HEPARIN-D5W 25,000 U/250 ML 250 ML IV PRN (20:48)
[2017-06-13] MEDS ORDERED: SODIUM CHLORIDE 0.9% FLUSH 10 ML FLUSH IV FLUSH SCH (21:00)
[2017-06-14] VITALS (11 sets, daily range): BP systolic 105–123; BP diastolic 53–74; PULSE 51–66; RESP 18–20; TEMP 97.8–98; O2SAT 96–100
[2017-06-14 06:43] LABS: AUTOMATED NEUTROPHIL # 5.6 TH/MM3 (1.8-7.7); BASOPHIL % 0.2 % (0.0-2.0); HEMATOCRIT 41.7 % (39.0-51.0); HEMOGLOBIN 13.9 GM/DL (13.0-17.0); LYMPH % 15.5 % (9.0-44.0); LYMPHOCYTE # 1.1 TH/MM3 (1.0-4.8); MEAN CELL VOLUME 78.5 FL (80.0-100.0); MEAN CORPUSCULAR HEMOGLOBIN 26.2 PG (27.0-34.0); MEAN CORPUSCULAR HGB CONC 33.4 % (32.0-36.0); MEAN PLATELET VOLUME 8.9 FL (7.0-11.0); MONO % 7.3 % (0.0-8.0); MONOCYTE # 0.5 TH/MM3 (0-0.9); PLATELET COUNT 172 TH/MM3 (150-450); RED BLOOD COUNT 5.31 MIL/MM3 (4.50-5.90); RED CELL DISTRIBUTION WIDTH 14.8 % (11.6-17.2); WHITE BLOOD COUNT 7.3 TH/MM3 (4.0-11.0)
[2017-06-14 07:04] LABS: ALBUMIN 3.3 GM/DL (3.4-5.0); ALT (GPT) 38 U/L (12-78); AST (GOT) 17 U/L (15-37); BICARBONATE 24.6 MEQ/L (21.0-32.0); BLOOD UREA NITROGEN 17 MG/DL (7-18); CALCIUM 8.6 MG/DL (8.5-10.1); CHLORIDE 105 MEQ/L (98-107); CREATININE 0.95 MG/DL (0.60-1.30); GLOMERULAR FILTRATION RATE 81 ML/MIN (>89); GLUCOSE,RANDOM 205 MG/DL (74-106); MAGNESIUM 1.9 MG/DL (1.5-2.5); PHOSPHORUS 4.1 MG/DL (2.5-4.9); SODIUM (NA) 140 MEQ/L (136-145)
[2017-06-14 07:06] LABS: ALKALINE PHOSPHATASE 89 U/L (45-117); TOTAL BILIRUBIN ADULT 0.5 MG/DL (0.2-1.0); TOTAL PROTEIN 7.1 GM/DL (6.4-8.2)
[2017-06-14] MEDS ORDERED: FUROSEMIDE 20 MG/2 ML VIAL IV PUSH ONE (08:00)
[2017-06-14] MEDS ORDERED: SPIRONOLACTONE 25 MG TAB PO ONE (08:00)
[2017-06-14] MEDS: ASPIRIN EC 325 MG TABEC PO SCH (08:45)
[2017-06-14] MEDS: CARVEDILOL 6.25 MG TAB PO SCH ×2 (08:45→20:15)
[2017-06-14] MEDS: CLOPIDOGREL 75 MG TAB PO SCH (08:45)
[2017-06-14] MEDS: ENALAPRIL MALEATE 2.5 MG TAB PO SCH (08:45)
[2017-06-14] MEDS: FAMOTIDINE 20 MG TAB PO SCH ×2 (08:45→20:15)
[2017-06-14] MEDS: SODIUM CHLORIDE 0.9% FLUSH 10 ML FLUSH IV FLUSH SCH ×2 (08:46→20:22)
[2017-06-14] MEDS: DOCUSATE SODIUM 50 MG/SENNA 8.6 MG TAB PO SCH ×2 (08:46→20:15)
[2017-06-14] MEDS: INSULIN ASPART SUPPLEMENTAL SCALE SQ SCH ×4 (08:56→20:22)
--- NOTE | 2017-06-14 12:48 | HHI.PR ---
Subjective Remarks Follow-up multivessel disease 06/14/17-patient seen and examined, he status post cardiac heart catheterization with finding of multivessel disease in patient with prior history of CABG. he currently denies any chest pain or shortness of breath Objective Vitals Vital Signs Date Time Temp Pulse Resp B/P (MAP) Pulse Ox O2 Delivery O2 Flow Rate FiO2 06/14/17 12:00 98.0 66 18 121/71 (88) 99 06/14/17 08:00 97.8 59 18 105/60 (75) 100 06/14/17 07:00 59 06/14/17 04:00 52 06/14/17 04:00 97.9 58 18 123/55 (77) 98 06/14/17 00:00 56 06/14/17 00:00 97.9 56 18 111/53 (72) 99 06/13/17 20:35 99 2.00 06/13/17 20:00 65 06/13/17 20:00 98.3 63 18 121/59 (79) 97 06/13/17 18:00 66 06/13/17 17:08 99 Nasal Cannula 2.00 06/13/17 17:00 64 06/13/17 16:00 60 06/13/17 16:00 97.0 65 20 125/88 (100) 99 I/O 06/13/17 06/13/17 06/13/17 06/14/17 06/14/17 06/14/17 07:00 15:00 23:00 07:00 15:00 23:00 Intake Total 400 ml Balance 400 ml Intake Oral 400 ml # Voids 3 Result Diagram: 06/14/17 0523 06/14/17 0523 Imaging Last Impressions Chest X-Ray 06/12/17 1225 Signed Impressions: Service Date/Time: Monday, June 12, 2017 13:08 - CONCLUSION: No acute disease. No significant change has occurred. Evan Hampton MD Objective Remarks GENERAL: NAD SKIN: Warm and dry. HEAD: Normocephalic. EYES: No scleral icterus. No injection or drainage. NECK: Supple, trachea midline. No JVD or lymphadenopathy. CARDIOVASCULAR: Regular rate and rhythm without murmurs, gallops, or rubs. RESPIRATORY: Breath sounds equal bilaterally. No accessory muscle use. GASTROINTESTINAL: Abdomen soft, non-tender, nondistended. MUSCULOSKELETAL: No cyanosis, or edema. BACK: Nontender without obvious deformity. No CVA tenderness. A/P Problem List: (1) Hx of CABG ICD Code: Z95.1 - Presence of aortocoronary bypass graft (2) Decreased cardiac ejection fraction ICD Code: R93.1 - Abnormal findings on diagnostic imaging of heart and coronary circulation (3) Hypertension ICD Code: I10 - Essential (primary) hypertension (4) Obese ICD Code: E66.9 - Obesity, unspecified (5) Hyperlipidemia ICD Code: E78.5 - Hyperlipidemia, unspecified (6) CAD (coronary artery disease) ICD Code: I25.10 - Atherosclerotic heart disease of [place] coronary artery without angina pectoris (7) Diabetes mellitus ICD Code: E11.9 - Type 2 diabetes mellitus without complications (8) Unstable angina pectoris ICD Code: I20.0 - Unstable angina Status: Acute (9) Multi-vessel coronary artery stenosis ICD Code: I25.10 - Atherosclerotic heart disease of [place] coronary artery without angina pectoris Assessment and Plan 57 year-old man with Multivessel coronary stenosis in patient with prior history of CABG Status post left heart catheterization 06/13/17 Appreciate input from cardiology pending possible transfer to [facility] for evaluation for heart transplant versus others However cardiothoracic surgery consultation pending for evaluation for redo of CABG Continue with heparin drip, Plavix, aspirin, beta adan, statin, BRIANA inhibitor, Aldactone Diabetes mellitus continue on sliding scale coverage with Accu-Cheks before meals and at bedtime ;hold his Glucophage and metformin Check hemoglobin A1c Start Levemir 10 units at bedtime Hypertension Continue home medications COPD tobacco oxygen as needed GERD Continue Pepcid Chronic back pain Continue pain meds as needed DVT and GI prophylaxis Ronnie Hidalgo MD Jun 14, 2017 12:48
[2017-06-14] MEDS: SODIUM CHLOR 0.9% 1000 ML INJ 1,000 ML IV SCH (13:10)
--- NOTE | 2017-06-14 13:43 | ECHRPT ---
Indication: Cardiomyopathy CONCLUSIONS The left ventricular systolic function is severely reduced with an estimated ejection fraction in th e range of 20-25%. There is global left ventricular dysfunction. Moderate mitral valve regurgitation. The mitral valve regurgitation jet is directed centrally due to poor leaflet coaptation. There is mild tricuspid valve regurgitation. BP: 121 / 59 HR: 99 Rhythm: Sinus MEASUREMENTS (Male / Female) Normal Values Technical Quality:Fair 2D ECHO LV Diastolic Diameter PLAX 6.9 cm 4.2 - 5.9 / 3.9 - 5.3 cm LV Systolic Diameter PLAX 6.3 cm IVS Diastolic Thickness 0.9 cm 0.6 - 1.0 / 0.6 - 0.9 cm LVPW Diastolic Thickness 0.9 cm 0.6 - 1.0 / 0.6 - 0.9 cm LV Relative Wall Thickness 0.3 RV Internal Dim ED PLAX 3.6 cm LVOT Diameter 2.3 cm LA Systolic Diameter LX 5.6 cm 3.0 - 4.0 / 2.7 - 3.8 cm LA Volume Index 42.9 cm/m 16 - 28 cm/m M-MODE Aortic Root Diameter MM 2.7 cm LA Systolic Diameter MM 5.0 cm LA Ao Ratio MM 1.9 MV E Point Septal Separation 2.0 cm AV Cusp Separation MM 1.8 cm DOPPLER AV Peak Velocity 133.0 cm/s AV Peak Gradient 7.1 mmHg LVOT Peak Velocity 53.1 cm/s LVOT Peak Gradient 1.1 mmHg AV Area Cont Eq pk 1.7 cm MV Area PHT 3.0 cm Mitral E Point Velocity 85.9 cm/s Mitral A Point Velocity 38.0 cm/s Mitral E to A Ratio 2.3 LV E' Lateral Velocity 7.9 cm/s Mitral E to LV E' Lateral Ratio 10.9 LV E' Septal Velocity 4.0 cm/s Mitral E to LV E' Septal Ratio 21.3 TR Peak Velocity 281.0 cm/s TR Peak Gradient 31.6 mmHg Right Atrial Pressure 10.0 mmHg Pulmonary Artery Systolic Pressu 41.6 mmHg Right Ventricular Systolic Press 41.6 mmHg FINDINGS LEFT VENTRICLE The left ventricular systolic function is severely reduced with an estimated ejection fraction in th e range of 20-25%. Moderately dilated left ventricle. Wall thickness is normal. There is global left ventricular dysfunction. RIGHT VENTRICLE Normal right ventricular size and systolic function. LEFT ATRIUM The left atrial size is moderately dilated. RIGHT ATRIUM The right atrial size is normal. ATRIAL SEPTUM Normal atrial septal thickness without atrial level shunting by limited color doppler interrogation. AORTA The aortic root and proximal ascending aorta are normal in size on limited imaging. MITRAL VALVE Moderate mitral valve regurgitation. The mitral valve regurgitation jet is directed centrally due to poor leaflet coaptation. No mitral valve stenosis. Mitral annular calcification is present. AORTIC VALVE Trileaflet aortic valve. No aortic valve stenosis or regurgitation. TRICUSPID VALVE Structurally normal tricuspid valve. There is mild tricuspid valve regurgitation. The estimated pulmonary arterial pressure is 41.6 mmHg. PULMONARY VALVE Trivial pulmonary valve regurgitation. VESSELS The inferior vena cava is normal in size. PERICARDIUM No pericardial effusion. Herrera Collins DO (Electronically Signed) Final Date:14 June 2017 13:41
[2017-06-14] MEDS: HEPARIN-D5W 25,000 U/250 ML 250 ML IV PRN (16:38)
[2017-06-14] MEDS: FUROSEMIDE 20 MG/2 ML VIAL IV PUSH SCH (16:46)
--- NOTE | 2017-06-14 17:37 | PD.CARD.PN ---
Subjective Subjective Remarks alert in nad, some chest pain last night Objective Medications Current Medications Medications (Trade) Dose Ordered Sig/Erika Route Start Time Stop Time Status Last Admin (NovoLOG SUPPLEMENTAL SCALE) 1 ACHS SLIDING SCALE SQ 06/12/17 17:00 06/14/17 12:41 (D50w (Vial) Inj) 50 ml UNSCH PRN IV PUSH 06/12/17 16:00 (Glucagon Inj) 1 mg UNSCH PRN OTHER 06/12/17 16:00 (Coreg) 6.25 mg BID PO 06/12/17 21:00 06/14/17 08:45 (Plavix) 75 mg DAILY PO 06/13/17 09:00 06/14/17 08:45 (Vasotec) 2.5 mg DAILY PO 06/13/17 09:00 06/14/17 08:45 (Ecotrin Ec) 325 mg DAILY PO 06/13/17 09:00 06/14/17 08:45 (Nitrostat Sl) 0.4 mg Q5M PRN SL 06/12/17 16:00 06/13/17 20:35 (Tylenol) 650 mg Q6H PRN PO 06/12/17 16:00 (Xanax) 0.25 mg Q8H PRN PO 06/12/17 16:00 (Zofran Inj) 4 mg Q6H PRN IV PUSH 06/12/17 16:00 (Pepcid) 20 mg BID PO 06/12/17 21:00 06/14/17 08:45 (NS Flush) 2 ml UNSCH PRN IV FLUSH 06/12/17 16:00 (NS Flush) 2 ml BID IV FLUSH 06/12/17 21:00 06/14/17 08:46 (Tylenol) 650 mg Q4H PRN PO 06/12/17 16:00 (Reglan Inj) 5 mg Q6H PRN IV PUSH 06/12/17 16:00 (Restoril) 15 mg HS PRN PO 06/12/17 16:00 (Tylenol) 650 mg Q6H PRN PO 06/12/17 16:00 (Percocet 5-325 Mg) 1 tab Q6H PRN PO 06/12/17 16:00 06/13/17 12:03 (Percocet 10-325 Mg) 1 tab Q6H PRN PO 06/12/17 16:00 (Morphine Inj) 2 mg Q3H PRN IV PUSH 06/12/17 16:00 (Morphine Inj) 4 mg Q3H PRN IV PUSH 06/12/17 16:30 (Morphine Inj) 4 mg Q3H PRN IV PUSH 06/12/17 16:30 (Narcan Inj) 0.4 mg UNSCH PRN IV PUSH 06/12/17 16:00 (Zenaida-Colace) 1 tab BID PO 06/12/17 21:00 06/14/17 08:46 (Milk Of Magnesia Liq) 30 ml Q12H PRN PO 06/12/17 16:00 (Senokot) 17.2 mg Q12H PRN PO 06/12/17 16:00 (Dulcolax Supp) 10 mg DAILY PRN RECTAL 06/12/17 16:00 (Lactulose Liq) 30 ml DAILY PRN PO 06/12/17 16:00 Heparin Sodium/ Dextrose 250 ml @ 10 mls/hr TITRATE PRN IV 06/13/17 17:30 06/14/17 16:38 Sodium Chloride 1,000 ml @ 30 mls/hr Q24H IV 06/13/17 13:10 (Lasix Inj) 20 mg BID@09,18 IV PUSH 06/14/17 18:00 06/14/17 16:46 (Aldactone) 25 mg BID@09,18 PO 06/14/17 18:00 06/14/17 16:46 (Lipitor) 40 mg HS PO 06/14/17 21:00 (Levemir Inj) 10 units HS SQ 06/14/17 21:00 Vital Signs / I&O Vital Signs Date Time Temp Pulse Resp B/P (MAP) Pulse Ox O2 Delivery O2 Flow Rate FiO2 06/14/17 16:00 98.0 59 18 111/65 (80) 99 06/14/17 12:00 98.0 66 18 121/71 (88) 99 06/14/17 08:00 97.8 59 18 105/60 (75) 100 06/14/17 07:00 59 06/14/17 04:00 52 06/14/17 04:00 97.9 58 18 123/55 (77) 98 06/14/17 00:00 56 06/14/17 00:00 97.9 56 18 111/53 (72) 99 06/13/17 20:35 99 2.00 06/13/17 20:00 65 06/13/17 20:00 98.3 63 18 121/59 (79) 97 06/13/17 18:00 66 I/O 06/13/17 06/13/17 06/13/17 06/14/17 06/14/17 06/14/17 07:00 15:00 23:00 07:00 15:00 23:00 Intake Total 400 ml Balance 400 ml Intake Oral 400 ml # Voids 3 Physical Exam GENERAL: SKIN: Warm and dry. HEAD: Normocephalic. EYES: No scleral icterus. No injection or drainage. NECK: Supple, trachea midline. No JVD or lymphadenopathy. CARDIOVASCULAR: Regular rate and rhythm without murmurs, gallops, or rubs. RESPIRATORY: Breath sounds equal bilaterally. No accessory muscle use. GASTROINTESTINAL: Abdomen soft, non-tender, nondistended. MUSCULOSKELETAL: No cyanosis, or edema. BACK: Nontender without obvious deformity. No CVA tenderness. Laboratory Laboratory Tests Test 06/14/17 01:12 06/14/17 05:23 06/14/17 13:12 Activated Partial Thromboplast Time 27.1 SEC 33.0 SEC White Blood Count 7.3 TH/MM3 Red Blood Count 5.31 MIL/MM3 Hemoglobin 13.9 GM/DL Hematocrit 41.7 % Mean Corpuscular Volume 78.5 FL Mean Corpuscular Hemoglobin 26.2 PG Mean Corpuscular Hemoglobin Concent 33.4 % Red Cell Distribution Width 14.8 % Platelet Count 172 TH/MM3 Mean Platelet Volume 8.9 FL Neutrophils (%) (Auto) 77.0 % Lymphocytes (%) (Auto) 15.5 % Monocytes (%) (Auto) 7.3 % Eosinophils (%) (Auto) 0.0 % Basophils (%) (Auto) 0.2 % Neutrophils # (Auto) 5.6 TH/MM3 Lymphocytes # (Auto) 1.1 TH/MM3 Monocytes # (Auto) 0.5 TH/MM3 Eosinophils # (Auto) 0.0 TH/MM3 Basophils # (Auto) 0.0 TH/MM3 CBC Comment DIFF FINAL Differential Comment Blood Urea Nitrogen 17 MG/DL Creatinine 0.95 MG/DL Random Glucose 205 MG/DL Total Protein 7.1 GM/DL Albumin 3.3 GM/DL Calcium Level 8.6 MG/DL Phosphorus Level 4.1 MG/DL Magnesium Level 1.9 MG/DL Alkaline Phosphatase 89 U/L Aspartate Amino Transf (AST/SGOT) 17 U/L Alanine Aminotransferase (ALT/SGPT) 38 U/L Total Bilirubin 0.5 MG/DL Sodium Level 140 MEQ/L Potassium Level 3.8 MEQ/L Chloride Level 105 MEQ/L Carbon Dioxide Level 24.6 MEQ/L Anion Gap 10 MEQ/L Estimat Glomerular Filtration Rate 81 ML/MIN B-Type Natriuretic Peptide 743 PG/ML Assessment and Plan Problem List: (1) Cardiomyopathy ICD Codes: I42.9 - Cardiomyopathy, unspecified (2) Mitral regurgitation ICD Codes: I34.0 - Nonrheumatic mitral (valve) insufficiency (3) Pulmonary HTN ICD Codes: I27.20 - Pulmonary hypertension, unspecified (4) CAD (coronary artery disease) ICD Codes: I25.10 - Atherosclerotic heart disease of [place] coronary artery without angina pectoris (5) Diabetes mellitus ICD Codes: E11.9 - Type 2 diabetes mellitus without complications (6) Multi-vessel coronary artery stenosis ICD Codes: I25.10 - Atherosclerotic heart disease of [place] coronary artery without angina pectoris (7) Unstable angina pectoris ICD Codes: I20.0 - Unstable angina Status: Acute (8) Decreased cardiac ejection fraction ICD Codes: R93.1 - Abnormal findings on diagnostic imaging of heart and coronary circulation Assessment and Plan 1.) Cardiomyopathy - continue coreg, enalapril, start lasix 20 mg bid, aldactone 25 mg bid, f/u bmp/bnp in am, may be accepted for heart transplant eval at [facility] if can get medicare/medicaid, d/w Dr Sosa @ and case management, patient and his family extensively 2.) CAD - continue iv hep, aspirin, plavix due to ongoing resting chest pain Garrett Henao MD Jun 14, 2017 17:37
[2017-06-14] MEDS ORDERED: SPIRONOLACTONE 25 MG TAB PO SCH (18:00)
--- NOTE | 2017-06-14 18:44 | MB ---
cc: Tyesha Aguirre MD,Garrett Barnes MD DATE: 06/14/2017 ELECTROPHYSIOLOGY CONSULT REASON FOR CONSULTATION: Congestive heart failure, cardiomyopathy. HISTORY OF PRESENT ILLNESS: Mr. Estrada is a 57-year-old gentleman with history of coronary artery disease. He has previous coronary artery bypass grafting. He had recent hospitalization around a year and a half ago due to myocardial infarction. That was in [place]. 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 Henao. Ejection fraction currently is around 20%. I was consulted for evaluation for device insertion. The chart was reviewed. The patient was evaluated. ALLERGIES: IODINE, POTASSIUM, SHELLFISH. SOCIAL HISTORY: The gentleman used to smoke until 3 years ago. FAMILY HISTORY: Noncontributory to his current medical condition. MEDICATIONS: He is on Glucophage, enalapril, pravastatin, glyburide, Plavix, Lipitor, Coreg and Lasix. REVIEW OF SYSTEMS: Currently, the patient referred no chest pain, no chest discomfort. No shortness of breath. No fever. PHYSICAL EXAMINATION: GENERAL: Alert, fully oriented. VITAL SIGNS: Blood pressure is 111/65, pulse 60, respiratory rate 18. LUNGS: Ventilated. CARDIOVASCULAR: S1, S2. No gallop. No murmur. ABDOMEN: Obese. No mass or bruit. EXTREMITIES: No edema. Electrocardiogram indicates sinus rhythm, some lateral ST changes. LABORATORY DATA: Hemoglobin is 13.9, white blood cell 7.3. Potassium 3.8, creatinine 0.95. Total cholesterol 136, LDL 77, HDL 33.8. INR is 1.1. ASSESSMENT AND RECOMMENDATIONS: Mr. Estrada' last echo from Dr. Henao was around 19%. That was around 3 or 4 weeks ago. Current ejection fraction is around 20%. The gentleman had a previous myocardial infarction around a year and a half ago. The records are not available. At this point, he is on optimal medical treatment. At this point, my recommendation is obtain records from [place] to evaluate previous ejection fraction. If it is 40% or less, then the gentleman is going to need electrophysiology study and defibrillator insertion for sudden prevention. The case extensively discussed with him. Awaiting for the report from the hospital during the weekend. He will be followed by Dr. Henao this weekend. I will see him on Saturday if necessary. MD LATRICE Alegre// , 05:10 PM , 06:10 PM
--- NOTE | 2017-06-14 19:31 | MB ---
cc: Alka Hagan MD DATE: 06/14/2017 HISTORY OF PRESENT ILLNESS: This is a 57-year-old patient with known cardiomyopathy, ischemic in nature with recent SPECT ejection fraction of 19%, myocardial perfusion study at Dr. Henao's office, severe mitral regurgitation, also [place] Heart class IV, CHF, who presented with left-sided chest pain radiating to his left upper extremity in the emergency room, off and on for the last 2-3 weeks, also with significant shortness of breath. The patient has been followed by Dr. Henao. He had a repeat cardiac catheterization, which showed severe 3-vessel disease in the right dominant system, a widely patent DAI to the LAD, cardiomyopathy with ejection fraction of 25-30%, left ventricular end-diastolic pressure of 22. The patient has had history of coronary artery bypass grafting in the past 10 years ago in [place], [place]. He has also had a 2 or 3 MIs since. We were asked to evaluate for redo coronary artery bypass grafting. PAST MEDICAL HISTORY: Ischemic cardiomyopathy, CHF [place] class IV, diabetes, hypertension. PAST SURGICAL HISTORY: Include coronary artery bypass grafting 10 years ago, appendectomy, skin graft to his right foot, as a child back surgery x 3. ALLERGIES: INCLUDE IODINE, POTASSIUM IODIDE, BETADINE, SHELLFISH. HOME MEDICATIONS: 1. Plavix. 2. Pravachol. 3. Coreg. 4. Enalapril. 5. Metformin. 6. Glyburide. FAMILY HISTORY: Noncontributory. SOCIAL HISTORY: Drinks socially. No tobacco. REVIEW OF SYSTEMS: As above in the HPI, other 12-system unremarkable. PHYSICAL EXAMINATION: VITAL SIGNS: Blood pressure 110/60, heart rate is 60, afebrile. GENERAL: The patient is awake, alert, in no acute distress. HEENT: Head is normocephalic, atraumatic. Pupils equal and reactive. Oral mucosa pink, moist. NECK: Supple. No JVD. HEART: Sounds S1, S2. Regular rate and rhythm. Soft systolic murmur. A well-healed mid sternotomy scar. LUNGS: Clear to auscultation. No wheezes, rales or rhonchi. ABDOMEN: Soft, nontender. No masses or organomegaly. EXTREMITIES: No cyanosis, clubbing, or edema. LABORATORY DATA: Shows hemoglobin 13, hematocrit of 41, white cell count is 7.3, platelet count of 172. Sodium 140, potassium 3.8, BUN is 17, creatinine 0.95, glucose 205. Troponin was negative. BNP was 743. IMAGING: Chest x-ray showed no acute disease. IMPRESSION AND PLAN: The patient's cardiac films have been evaluated by Dr. Alka Hagan. At this time, the patient has very poor targets for redo sternotomy. He would need to be evaluated at a tertiary center to see if anything further could be done at this time. In the meantime, I did discuss this with Dr. Henao. He will be attempting to maximize his medications and may need again followup tertiary center if no improvement. We will also consult case management to assist with Medicaid reapplication. Dictated by TOYA Pedersen MD CHRISTIAN Hope/LIZY , 05:34 PM , 07:30 PM
[2017-06-14] MEDS: ATORVASTATIN 40 MG TAB PO SCH (20:15)
[2017-06-14] MEDS: INSULIN DETEMIR 100 UNITS/ML VIAL SQ SCH (20:22)
--- NOTE | 2017-06-14 20:42 | EKG ---
Date Performed: 06/13/2017 Time Performed: 22:03:50 PTAGE: 57 years EKG: Sinus rhythm Prolonged QT interval Poor R wave progression Nonspecific ST-T wave changes Prolonged corrected QT i nterval Lateral T wave changes may be due to myocardial ischemia Abnormal ECG NO PREVIOUS TRACING DOCTOR: Garrett Henao Interpretating Date/Time 06/14/2017 20:41:16
--- NOTE | 2017-06-14 20:42 | EKG ---
Date Performed: 06/14/2017 Time Performed: 07:05:26 PTAGE: 57 years EKG: Sinus rhythm Poor R wave progression Septal and lateral ST-T changes are nonspecific Prolonged corrected QT inter riccardo Borderline ECG NO PREVIOUS TRACING DOCTOR: Garrett Henao Interpretating Date/Time 06/14/2017 20:41:38
[2017-06-15] VITALS (28 sets, daily range): BP systolic 99–132; BP diastolic 54–77; PULSE 51–125; RESP 18–20; TEMP 97.7–98.3; O2SAT 96–99
[2017-06-15 04:42] LABS: HEMATOCRIT 42.2 % (39.0-51.0); HEMOGLOBIN 14.1 GM/DL (13.0-17.0); MEAN CELL VOLUME 79.2 FL (80.0-100.0); MEAN CORPUSCULAR HEMOGLOBIN 26.5 PG (27.0-34.0); MEAN CORPUSCULAR HGB CONC 33.5 % (32.0-36.0); MEAN PLATELET VOLUME 8.7 FL (7.0-11.0); PLATELET COUNT 175 TH/MM3 (150-450); RED BLOOD COUNT 5.33 MIL/MM3 (4.50-5.90); RED CELL DISTRIBUTION WIDTH 15.1 % (11.6-17.2); WHITE BLOOD COUNT 8.2 TH/MM3 (4.0-11.0)
[2017-06-15 05:04] LABS: BICARBONATE 26.8 MEQ/L (21.0-32.0); BLOOD UREA NITROGEN 22 MG/DL (7-18); CALCIUM 9.1 MG/DL (8.5-10.1); CHLORIDE 102 MEQ/L (98-107); CREATININE 0.98 MG/DL (0.60-1.30); GLOMERULAR FILTRATION RATE 78 ML/MIN (>89); GLUCOSE,RANDOM 159 MG/DL (74-106); SODIUM (NA) 138 MEQ/L (136-145)
[2017-06-15 05:05] LABS: CHOLESTEROL 165 MG/DL (120-200); TRIGLYCERIDES 125 MG/DL (42-150)
[2017-06-15 05:07] LABS: CHOLESTEROL/ HDL RATIO 4.48 RATIO; HDL CHOLESTEROL 36.8 MG/DL (40.0-60.0); LDL CHOLESTEROL 103 MG/DL (0-99)
[2017-06-15] MEDS: INSULIN ASPART SUPPLEMENTAL SCALE SQ SCH ×4 (08:57→19:46)
[2017-06-15] MEDS: ASPIRIN EC 325 MG TABEC PO SCH (09:01)
[2017-06-15] MEDS: CARVEDILOL 6.25 MG TAB PO SCH ×2 (09:02→19:39)
[2017-06-15] MEDS: ENALAPRIL MALEATE 2.5 MG TAB PO SCH (09:02)
[2017-06-15] MEDS: FAMOTIDINE 20 MG TAB PO SCH ×2 (09:02→19:37)
[2017-06-15] MEDS: DOCUSATE SODIUM 50 MG/SENNA 8.6 MG TAB PO SCH ×2 (09:03→19:41)
[2017-06-15] MEDS: SPIRONOLACTONE 50 MG TAB PO SCH ×2 (09:03→17:47)
[2017-06-15] MEDS: CLOPIDOGREL 75 MG TAB PO SCH (09:03)
[2017-06-15] MEDS: FUROSEMIDE 20 MG/2 ML VIAL IV PUSH SCH ×2 (09:04→17:47)
[2017-06-15] MEDS: SODIUM CHLORIDE 0.9% FLUSH 10 ML FLUSH IV FLUSH SCH ×2 (09:04→19:41)
[2017-06-15] MEDS: HEPARIN-D5W 25,000 U/250 ML 250 ML IV PRN (11:33)
--- NOTE | 2017-06-15 12:16 | HHI.PR ---
Subjective Remarks Patient reports he still having some chest discomfort this morning but it improved throughout the day. He also complained of a headache and shortness of breath with activities. Objective Vitals Vital Signs Date Time Temp Pulse Resp B/P (MAP) Pulse Ox O2 Delivery O2 Flow Rate FiO2 06/15/17 08:57 99 Nasal Cannula 2.00 06/15/17 07:00 59 06/15/17 06:00 54 06/15/17 05:00 57 06/15/17 04:00 98.3 53 18 100/55 (70) 96 06/15/17 04:00 Room Air 06/15/17 04:00 53 06/15/17 03:00 51 06/15/17 02:00 54 06/15/17 01:00 55 06/15/17 00:00 98.0 52 19 99/54 (69) 97 06/15/17 00:00 Room Air 06/15/17 00:00 52 06/14/17 23:00 51 06/14/17 22:12 96 21 06/14/17 22:00 56 06/14/17 21:00 66 06/14/17 20:00 60 06/14/17 20:00 97.9 60 20 111/74 (86) 97 06/14/17 16:00 98.0 59 18 111/65 (80) 99 I/O 06/14/17 06/14/17 06/14/17 06/15/17 06/15/17 06/15/17 07:00 15:00 23:00 07:00 15:00 23:00 Intake Total 240 ml Output Total 1000 ml Balance -760 ml Intake Oral 240 ml Output Urine Total 1000 ml # Bowel Movements 0 Result Diagram: 06/15/17 0340 06/15/17 0340 Objective Remarks GENERAL: This is a well-nourished, well-developed patient, in no apparent distress. CARDIOVASCULAR: Normal rate and regular rhythm without murmurs, gallops, or rubs. RESPIRATORY: Good respiratory efforts. Diminished breath sounds at the bases, otherwise clear to auscultation bilaterally. GASTROINTESTINAL: Abdomen soft, non-tender, non-distended. Normal active bowel sounds MUSCULOSKELETAL: Extremities without cyanosis, or edema. NEURO: Alert & Oriented x4 to person, place, time, situation. Moves all ext x4 PSYCH: Appropriate mood and affect. A/P Problem List: (1) Hx of CABG ICD Code: Z95.1 - Presence of aortocoronary bypass graft (2) Decreased cardiac ejection fraction ICD Code: R93.1 - Abnormal findings on diagnostic imaging of heart and coronary circulation (3) Hypertension ICD Code: I10 - Essential (primary) hypertension (4) Obese ICD Code: E66.9 - Obesity, unspecified (5) Hyperlipidemia ICD Code: E78.5 - Hyperlipidemia, unspecified (6) CAD (coronary artery disease) ICD Code: I25.10 - Atherosclerotic heart disease of [place] coronary artery without angina pectoris (7) Diabetes mellitus ICD Code: E11.9 - Type 2 diabetes mellitus without complications (8) Unstable angina pectoris ICD Code: I20.0 - Unstable angina Status: Acute (9) Multi-vessel coronary artery stenosis ICD Code: I25.10 - Atherosclerotic heart disease of [place] coronary artery without angina pectoris Assessment and Plan 57 year-old male with Multivessel coronary stenosis in patient with prior history of CABG Status post left heart catheterization 06/13/17 Appreciate input from cardiology who recommended transfer to [facility] for evaluation for heart transplant versus others CT surgery also recommend evaluation at a tertiary care center. Continue with heparin drip, Plavix, aspirin, beta adan, statin, BRIANA inhibitor, Aldactone Diabetes mellitus continue on sliding scale coverage with Accu-Cheks before meals and at bedtime ;hold his Glucophage and metformin Hemoglobin A1c of 9.8 Continue Levemir 10 units at bedtime Hypertension Continue home medications COPD tobacco oxygen as needed GERD Continue Pepcid Chronic back pain Continue pain meds as needed DVT and GI prophylaxis On heparin, stool softeners as needed. Discharge Planning Need evaluation at a tertiary care center. Case management aware. Appreciate input from specialist. Audrey No MD Jun 15, 2017 12:16
--- NOTE | 2017-06-15 12:40 | PD.CARD.PN ---
Subjective Subjective Remarks alert in nad, some chest pain this am, but less frequent and severe Objective Medications Current Medications Medications (Trade) Dose Ordered Sig/Erika Route Start Time Stop Time Status Last Admin (NovoLOG SUPPLEMENTAL SCALE) 1 ACHS SLIDING SCALE SQ 06/12/17 17:00 06/15/17 08:57 (D50w (Vial) Inj) 50 ml UNSCH PRN IV PUSH 06/12/17 16:00 (Glucagon Inj) 1 mg UNSCH PRN OTHER 06/12/17 16:00 (Coreg) 6.25 mg BID PO 06/12/17 21:00 06/15/17 09:02 (Plavix) 75 mg DAILY PO 06/13/17 09:00 06/15/17 09:03 (Vasotec) 2.5 mg DAILY PO 06/13/17 09:00 06/15/17 09:02 (Ecotrin Ec) 325 mg DAILY PO 06/13/17 09:00 06/15/17 09:01 (Nitrostat Sl) 0.4 mg Q5M PRN SL 06/12/17 16:00 06/13/17 20:35 (Tylenol) 650 mg Q6H PRN PO 06/12/17 16:00 (Xanax) 0.25 mg Q8H PRN PO 06/12/17 16:00 (Zofran Inj) 4 mg Q6H PRN IV PUSH 06/12/17 16:00 (Pepcid) 20 mg BID PO 06/12/17 21:00 06/15/17 09:02 (NS Flush) 2 ml UNSCH PRN IV FLUSH 06/12/17 16:00 (NS Flush) 2 ml BID IV FLUSH 06/12/17 21:00 06/15/17 09:04 (Tylenol) 650 mg Q4H PRN PO 06/12/17 16:00 (Reglan Inj) 5 mg Q6H PRN IV PUSH 06/12/17 16:00 (Restoril) 15 mg HS PRN PO 06/12/17 16:00 (Tylenol) 650 mg Q6H PRN PO 06/12/17 16:00 (Percocet 5-325 Mg) 1 tab Q6H PRN PO 06/12/17 16:00 06/13/17 12:03 (Percocet 10-325 Mg) 1 tab Q6H PRN PO 06/12/17 16:00 (Morphine Inj) 2 mg Q3H PRN IV PUSH 06/12/17 16:00 (Morphine Inj) 4 mg Q3H PRN IV PUSH 06/12/17 16:30 (Morphine Inj) 4 mg Q3H PRN IV PUSH 06/12/17 16:30 (Narcan Inj) 0.4 mg UNSCH PRN IV PUSH 06/12/17 16:00 (Zenaida-Colace) 1 tab BID PO 06/12/17 21:00 06/15/17 09:03 (Milk Of Magnesia Liq) 30 ml Q12H PRN PO 06/12/17 16:00 (Senokot) 17.2 mg Q12H PRN PO 06/12/17 16:00 (Dulcolax Supp) 10 mg DAILY PRN RECTAL 06/12/17 16:00 (Lactulose Liq) 30 ml DAILY PRN PO 06/12/17 16:00 Heparin Sodium/ Dextrose 250 ml @ 10 mls/hr TITRATE PRN IV 06/13/17 17:30 06/15/17 11:33 Sodium Chloride 1,000 ml @ 30 mls/hr Q24H IV 06/13/17 13:10 (Lasix Inj) 20 mg BID@ IV PUSH 06/14/17 18:00 06/15/17 09:04 (Lipitor) 40 mg HS PO 06/14/17 21:00 06/14/17 20:15 (Levemir Inj) 10 units HS SQ 06/14/17 21:00 (Aldactone) 50 mg BID@18 PO 06/15/17 09:00 06/15/17 09:03 Vital Signs / I&O Vital Signs Date Time Temp Pulse Resp B/P (MAP) Pulse Ox O2 Delivery O2 Flow Rate FiO2 06/15/17 08:57 99 Nasal Cannula 2.00 06/15/17 07:00 59 06/15/17 06:00 54 06/15/17 05:00 57 06/15/17 04:00 98.3 53 18 100/55 (70) 96 06/15/17 04:00 Room Air 06/15/17 04:00 53 06/15/17 03:00 51 06/15/17 02:00 54 06/15/17 01:00 55 06/15/17 00:00 98.0 52 19 99/54 (69) 97 06/15/17 00:00 Room Air 06/15/17 00:00 52 06/14/17 23:00 51 06/14/17 22:12 96 21 06/14/17 22:00 56 06/14/17 21:00 66 06/14/17 20:00 60 06/14/17 20:00 97.9 60 20 111/74 (86) 97 06/14/17 16:00 98.0 59 18 111/65 (80) 99 I/O 06/14/17 06/14/17 06/14/17 06/15/17 06/15/17 06/15/17 06:59 14:59 22:59 06:59 14:59 22:59 Intake Total 240 ml Output Total 1000 ml Balance -760 ml Intake Oral 240 ml Output Urine Total 1000 ml # Bowel Movements 0 Physical Exam GENERAL: SKIN: Warm and dry. HEAD: Normocephalic. EYES: No scleral icterus. No injection or drainage. NECK: Supple, trachea midline. No JVD or lymphadenopathy. CARDIOVASCULAR: Regular rate and rhythm without murmurs, gallops, or rubs. RESPIRATORY: Breath sounds equal bilaterally. No accessory muscle use. GASTROINTESTINAL: Abdomen soft, non-tender, nondistended. MUSCULOSKELETAL: No cyanosis, or edema. BACK: Nontender without obvious deformity. No CVA tenderness. Laboratory Laboratory Tests Test 06/14/17 13:12 06/14/17 20:46 06/15/17 03:40 Activated Partial Thromboplast Time 33.0 SEC 36.4 SEC 44.6 SEC White Blood Count 8.2 TH/MM3 Red Blood Count 5.33 MIL/MM3 Hemoglobin 14.1 GM/DL Hematocrit 42.2 % Mean Corpuscular Volume 79.2 FL Mean Corpuscular Hemoglobin 26.5 PG Mean Corpuscular Hemoglobin Concent 33.5 % Red Cell Distribution Width 15.1 % Platelet Count 175 TH/MM3 Mean Platelet Volume 8.7 FL Blood Urea Nitrogen 22 MG/DL Creatinine 0.98 MG/DL Random Glucose 159 MG/DL Calcium Level 9.1 MG/DL Magnesium Level 2.0 MG/DL Sodium Level 138 MEQ/L Potassium Level 3.5 MEQ/L Chloride Level 102 MEQ/L Carbon Dioxide Level 26.8 MEQ/L Anion Gap 9 MEQ/L Estimat Glomerular Filtration Rate 78 ML/MIN B-Type Natriuretic Peptide 292 PG/ML Triglycerides Level 125 MG/DL Cholesterol Level 165 MG/DL LDL Cholesterol 103 MG/DL HDL Cholesterol 36.8 MG/DL Cholesterol/HDL Ratio 4.48 RATIO Assessment and Plan Problem List: (1) Cardiomyopathy ICD Codes: I42.9 - Cardiomyopathy, unspecified (2) Mitral regurgitation ICD Codes: I34.0 - Nonrheumatic mitral (valve) insufficiency (3) Pulmonary HTN ICD Codes: I27.20 - Pulmonary hypertension, unspecified (4) CAD (coronary artery disease) ICD Codes: I25.10 - Atherosclerotic heart disease of [place] coronary artery without angina pectoris (5) Diabetes mellitus ICD Codes: E11.9 - Type 2 diabetes mellitus without complications (6) Multi-vessel coronary artery stenosis ICD Codes: I25.10 - Atherosclerotic heart disease of [place] coronary artery without angina pectoris (7) Unstable angina pectoris ICD Codes: I20.0 - Unstable angina Status: Acute (8) Decreased cardiac ejection fraction ICD Codes: R93.1 - Abnormal findings on diagnostic imaging of heart and coronary circulation Assessment and Plan 1.) Cardiomyopathy - bnp down to @ 230, becoming euvolemic, dyspnea disproportionately worse than degree of decompensated chf, rec pulmonary consult , continue coreg, enalapril, continue lasix 20 mg bid, increase aldactone 50mg bid, f/u bmp/bnp in am, may be accepted for heart transplant eval at [facility] if can get medicare/medicaid, d/w Dr Sosa @ and case management , patient and his family extensively 2.) CAD - continue iv hep, aspirin, plavix due to ongoing resting chest pain. Angina improving with diuresis presumably due decrease wall tension from lower filling pressures Garrett Henao MD Jun 15, 2017 12:40
[2017-06-15] MEDS: ONDANSETRON HCL 4 MG/2 ML VIAL IV PUSH PRN (12:52)
[2017-06-15] MEDS: SODIUM CHLOR 0.9% 1000 ML INJ 1,000 ML IV SCH (13:10)
--- NOTE | 2017-06-15 17:17 | MB ---
cc: Chaparro Tong MD, Arjun D MD DATE: 06/15/2017 REQUESTING PHYSICIAN: Dr. No. REASON FOR CONSULTATION: Evaluation of shortness of breath. HISTORY OF PRESENT ILLNESS: Mr. Estrada is a pleasant 57-year-old white male with a history of coronary artery disease, status post CABG done about 10 years ago. Then, he had 2 other heart attacks 3 years ago and 1-1/2 years ago. The patient had surgery done in the [place] area. Now he is being followed by Dr. Henao. He came to the hospital with a 1-month history of worsening of his shortness of breath and off and on chest pain. He had a cardiac catheterization and was found to have an ejection fraction of 20%. He has shortness of breath on exertion any activity makes him short of breath. Recently he said that he had swelling in his legs and was eating a lot of hot dogs. He has orthopnea and PND. No wheezing. No fever or chills. No night sweats. He does have a history of smoking since age 12, which he recently quit. PAST MEDICAL HISTORY: Significant for coronary artery disease status post CABG, hypertension, cardiomyopathy with ejection fraction 20%, likely underlying COPD, history of back surgery and appendix surgery. MEDICATIONS: He is currently taking spironolactone 50 mg a day, Lipitor 40 mg a day, insulin 10 units at nighttime, Lasix 20 mg twice a day, heparin drip, enalapril 2.5 mg, Plavix 75 mg, aspirin 325 mg a day, Coreg 6.25 mg twice a day, famotidine 20 mg a day, nitroglycerin p.r.n., Xanax p.r.n. ALLERGIES: HE IS ALLERGIC TO IODINE, POTASSIUM, SHELLFISH. SOCIAL HISTORY: He is . 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 History of smoking since age 12 until recently. He drinks socially. FAMILY HISTORY: He has no children. REVIEW OF SYSTEMS: He gets short of breath, orthopnea and had swelling of the legs, which has improved. No seizures, stroke or epilepsy. No DVT or pulmonary embolism. PHYSICAL EXAMINATION: GENERAL: Well built, well-nourished male not in any acute distress. VITAL SIGNS: Blood pressure 100/55, heart rate 53, respirations 16, temperature 98.3, saturation 96% on room air. He is comfortable on room air. HEENT: Unremarkable. NECK: Supple. JVD not raised. CHEST: Equal bilaterally. No rhonchi. CARDIOVASCULAR: S1, S2 normal. ABDOMEN: Benign. EXTREMITIES: No edema. IMPRESSION: 1. Shortness of breath, likely from his cardiomyopathy; however, need to rule out underlying chronic obstructive pulmonary disease. He has a long history of smoking. 2. Coronary artery disease, status post coronary artery bypass grafting. 3. Hypertension. 4. History of nicotine use. PLAN: The patient is being diuresed and being evaluated for possible AICD and EP study. I will check his pulmonary function study to evaluate his lung function. He is stable on room air. Further treatment will depend on the course in the hospital. Thank you, Dr. No, for this consultation. MD YAQUELIN Garcia//roman , 01:16 PM , 04:50 PM SHERIE
[2017-06-15] MEDS: ALPRAZolam 0.25 MG TAB PO PRN (19:39)
[2017-06-15] MEDS: ATORVASTATIN 40 MG TAB PO SCH (19:41)
[2017-06-15] MEDS: INSULIN DETEMIR 100 UNITS/ML VIAL SQ SCH (19:41)
[2017-06-16] VITALS (26 sets, daily range): BP systolic 95–118; BP diastolic 53–75; PULSE 47–74; RESP 18–22; TEMP 97.7–98.2; O2SAT 95–98
[2017-06-16] MEDS: HEPARIN-D5W 25,000 U/250 ML 250 ML IV PRN (00:09)
[2017-06-16 05:12] LABS: HEMOGLOBIN 14.7 GM/DL (13.0-17.0); MEAN CELL VOLUME 78.7 FL (80.0-100.0); MEAN CORPUSCULAR HEMOGLOBIN 26.3 PG (27.0-34.0); MEAN CORPUSCULAR HGB CONC 33.4 % (32.0-36.0); MEAN PLATELET VOLUME 8.5 FL (7.0-11.0); PLATELET COUNT 188 TH/MM3 (150-450); RED BLOOD COUNT 5.59 MIL/MM3 (4.50-5.90)
[2017-06-16 05:37] LABS: CALCIUM 9.1 MG/DL (8.5-10.1); CREATININE 1.09 MG/DL (0.60-1.30); MAGNESIUM 2.1 MG/DL (1.5-2.5)
[2017-06-16] MEDS: FUROSEMIDE 20 MG/2 ML VIAL IV PUSH SCH ×2 (08:56→17:22)
[2017-06-16] MEDS: CLOPIDOGREL 75 MG TAB PO SCH (08:58)
[2017-06-16] MEDS: FAMOTIDINE 20 MG TAB PO SCH ×2 (08:58→20:19)
[2017-06-16] MEDS: SPIRONOLACTONE 50 MG TAB PO SCH ×2 (08:58→17:22)
[2017-06-16] MEDS: DOCUSATE SODIUM 50 MG/SENNA 8.6 MG TAB PO SCH ×2 (08:58→20:19)
[2017-06-16] MEDS: CARVEDILOL 6.25 MG TAB PO SCH ×2 (08:59→20:19)
[2017-06-16] MEDS: SODIUM CHLORIDE 0.9% FLUSH 10 ML FLUSH IV FLUSH SCH ×2 (08:59→20:19)
[2017-06-16] MEDS: INSULIN ASPART SUPPLEMENTAL SCALE SQ SCH ×4 (08:59→20:29)
[2017-06-16] MEDS: LISINOPRIL 5 MG TAB PO SCH (09:03)
[2017-06-16] MEDS: ASPIRIN EC 81 MG TABEC PO SCH (09:04)
[2017-06-16 11:43] LABS: HEMOGLOBIN A1C 9.7 % (4.3-6.0)
[2017-06-16] MEDS: ONDANSETRON HCL 4 MG/2 ML VIAL IV PUSH PRN (12:35)
[2017-06-16] MEDS: SODIUM CHLOR 0.9% 1000 ML INJ 1,000 ML IV SCH (13:10)
--- NOTE | 2017-06-16 14:41 | HHI.PR ---
Subjective Remarks Patient reports he is feeling okay today. No chest pain. Shortness of breath has improved. Objective Vitals Vital Signs Date Time Temp Pulse Resp B/P (MAP) Pulse Ox O2 Delivery O2 Flow Rate FiO2 06/16/17 13:29 98 Nasal Cannula 2.00 06/16/17 11:32 98.0 62 22 106/66 (79) 98 06/16/17 08:39 54 06/16/17 07:58 97 Room Air 06/16/17 07:58 97.9 61 19 117/70 (86) 97 06/16/17 07:00 64 06/16/17 06:00 59 06/16/17 05:00 55 06/16/17 04:00 98.2 49 18 101/53 (69) 97 06/16/17 04:00 49 06/16/17 04:00 Nasal Cannula 2.00 06/16/17 03:00 50 06/16/17 02:00 47 06/16/17 01:00 52 06/16/17 00:00 54 06/15/17 23:44 Nasal Cannula 2.00 06/15/17 23:44 98.0 54 18 129/72 (91) 98 06/15/17 23:00 52 06/15/17 22:00 53 06/15/17 21:00 56 06/15/17 20:00 Nasal Cannula 2.00 06/15/17 20:00 66 06/15/17 20:00 98.3 66 20 132/72 (92) 97 06/15/17 18:00 64 06/15/17 17:00 56 06/15/17 16:46 98.0 56 20 123/60 (81) 98 06/15/17 16:00 56 06/15/17 15:00 55 I/O 06/15/17 06/15/17 06/15/17 06/16/17 06/16/17 06/16/17 07:00 15:00 23:00 07:00 15:00 23:00 Intake Total 390 ml 720 ml 640 ml Output Total 1000 ml 600 ml 1500 ml Balance -610 ml 120 ml -860 ml Intake Oral 240 ml 720 ml 480 ml IV Total 150 ml 160 ml Output Urine Total 1000 ml 600 ml 1500 ml # Bowel Movements 0 0 Result Diagram: 06/16/17 0350 06/16/17 0350 Objective Remarks GENERAL: This is a well-nourished, well-developed patient, in no apparent distress. CARDIOVASCULAR: Normal rate and regular rhythm without murmurs, gallops, or rubs. RESPIRATORY: Good respiratory efforts. Diminished breath sounds at the bases, otherwise clear to auscultation bilaterally. GASTROINTESTINAL: Abdomen soft, non-tender, non-distended. Normal active bowel sounds MUSCULOSKELETAL: Extremities without cyanosis, or edema. NEURO: Alert & Oriented x4 to person, place, time, situation. Moves all ext x4 PSYCH: Appropriate mood and affect. A/P Problem List: (1) Hx of CABG ICD Code: Z95.1 - Presence of aortocoronary bypass graft (2) Decreased cardiac ejection fraction ICD Code: R93.1 - Abnormal findings on diagnostic imaging of heart and coronary circulation (3) Hypertension ICD Code: I10 - Essential (primary) hypertension (4) Obese ICD Code: E66.9 - Obesity, unspecified (5) Hyperlipidemia ICD Code: E78.5 - Hyperlipidemia, unspecified (6) CAD (coronary artery disease) ICD Code: I25.10 - Atherosclerotic heart disease of [place] coronary artery without angina pectoris (7) Diabetes mellitus ICD Code: E11.9 - Type 2 diabetes mellitus without complications (8) Unstable angina pectoris ICD Code: I20.0 - Unstable angina Status: Acute (9) Multi-vessel coronary artery stenosis ICD Code: I25.10 - Atherosclerotic heart disease of [place] coronary artery without angina pectoris Assessment and Plan 57 year-old male with Multivessel coronary stenosis in patient with prior history of CABG Status post left heart catheterization 06/13/17 Appreciate input from cardiology who recommended transfer to [facility] for evaluation for heart transplant versus others CT surgery also recommend evaluation at a tertiary care center. Continue with heparin drip, Plavix, aspirin, beta adan, statin, BRIANA inhibitor, Aldactone Diabetes mellitus continue on sliding scale coverage with Accu-Cheks before meals and at bedtime ;hold his Glucophage and metformin Hemoglobin A1c of 9.8 Continue Levemir 10 units at bedtime Hypertension Continue home medications COPD tobacco oxygen as needed -Appreciate pulmonology following. GERD Continue Pepcid Chronic back pain Continue pain meds as needed DVT and GI prophylaxis On heparin, stool softeners as needed. Discharge Planning Need evaluation at a tertiary care center. Case management aware. Appreciate input from specialist. Audrey No MD Jun 16, 2017 14:41
[2017-06-16] MEDS: ACETAMINOPHEN 325 MG TAB PO PRN (15:29)
--- NOTE | 2017-06-16 15:52 | PD.CARD.PN ---
Subjective Subjective Remarks denies chest pain, off oxygen, off heparin, in nad, appears comfortable Objective Medications Current Medications Medications (Trade) Dose Ordered Sig/Erika Route Start Time Stop Time Status Last Admin (NovoLOG SUPPLEMENTAL SCALE) 1 ACHS SLIDING SCALE SQ 06/12/17 17:00 06/16/17 12:35 (D50w (Vial) Inj) 50 ml UNSCH PRN IV PUSH 06/12/17 16:00 (Glucagon Inj) 1 mg UNSCH PRN OTHER 06/12/17 16:00 (Coreg) 6.25 mg BID PO 06/12/17 21:00 06/16/17 08:59 (Plavix) 75 mg DAILY PO 06/13/17 09:00 06/16/17 08:58 (Nitrostat Sl) 0.4 mg Q5M PRN SL 06/12/17 16:00 06/13/17 20:35 (Tylenol) 650 mg Q6H PRN PO 06/12/17 16:00 06/16/17 15:29 (Xanax) 0.25 mg Q8H PRN PO 06/12/17 16:00 06/15/17 19:39 (Zofran Inj) 4 mg Q6H PRN IV PUSH 06/12/17 16:00 06/16/17 12:35 (Pepcid) 20 mg BID PO 06/12/17 21:00 06/16/17 08:58 (NS Flush) 2 ml UNSCH PRN IV FLUSH 06/12/17 16:00 (NS Flush) 2 ml BID IV FLUSH 06/12/17 21:00 06/16/17 08:59 (Tylenol) 650 mg Q4H PRN PO 06/12/17 16:00 (Reglan Inj) 5 mg Q6H PRN IV PUSH 06/12/17 16:00 (Restoril) 15 mg HS PRN PO 06/12/17 16:00 (Tylenol) 650 mg Q6H PRN PO 06/12/17 16:00 (Percocet 5-325 Mg) 1 tab Q6H PRN PO 06/12/17 16:00 06/13/17 12:03 (Percocet 10-325 Mg) 1 tab Q6H PRN PO 06/12/17 16:00 (Morphine Inj) 2 mg Q3H PRN IV PUSH 06/12/17 16:00 (Morphine Inj) 4 mg Q3H PRN IV PUSH 06/12/17 16:30 (Morphine Inj) 4 mg Q3H PRN IV PUSH 06/12/17 16:30 (Narcan Inj) 0.4 mg UNSCH PRN IV PUSH 06/12/17 16:00 (Zenaida-Colace) 1 tab BID PO 06/12/17 21:00 06/16/17 08:58 (Milk Of Magnesia Liq) 30 ml Q12H PRN PO 06/12/17 16:00 (Senokot) 17.2 mg Q12H PRN PO 06/12/17 16:00 (Dulcolax Supp) 10 mg DAILY PRN RECTAL 06/12/17 16:00 (Lactulose Liq) 30 ml DAILY PRN PO 06/12/17 16:00 Sodium Chloride 1,000 ml @ 30 mls/hr Q24H IV 06/13/17 13:10 (Lasix Inj) 20 mg BID@ IV PUSH 06/14/17 18:00 06/16/17 08:56 (Lipitor) 40 mg HS PO 06/14/17 21:00 06/15/17 19:41 (Levemir Inj) 10 units HS SQ 06/14/17 21:00 (Aldactone) 50 mg BID@ PO 06/15/17 09:00 06/16/17 08:58 (Prinivil) 5 mg DAILY PO 06/16/17 09:00 06/16/17 09:03 (Ecotrin Ec) 162 mg DAILY PO 06/16/17 09:00 06/16/17 09:04 Vital Signs / I&O Vital Signs Date Time Temp Pulse Resp B/P (MAP) Pulse Ox O2 Delivery O2 Flow Rate FiO2 06/16/17 15:25 97.7 69 19 118/75 (89) 97 06/16/17 13:29 98 Nasal Cannula 2.00 06/16/17 11:32 98.0 62 22 106/66 (79) 98 06/16/17 08:39 54 06/16/17 07:58 97 Room Air 06/16/17 07:58 97.9 61 19 117/70 (86) 97 06/16/17 07:00 64 06/16/17 06:00 59 06/16/17 05:00 55 06/16/17 04:00 98.2 49 18 101/53 (69) 97 06/16/17 04:00 49 06/16/17 04:00 Nasal Cannula 2.00 06/16/17 03:00 50 06/16/17 02:00 47 06/16/17 01:00 52 06/16/17 00:00 54 06/15/17 23:44 Nasal Cannula 2.00 06/15/17 23:44 98.0 54 18 129/72 (91) 98 06/15/17 23:00 52 06/15/17 22:00 53 06/15/17 21:00 56 06/15/17 20:00 Nasal Cannula 2.00 06/15/17 20:00 66 06/15/17 20:00 98.3 66 20 132/72 (92) 97 06/15/17 18:00 64 06/15/17 17:00 56 06/15/17 16:46 98.0 56 20 123/60 (81) 98 06/15/17 16:00 56 I/O 06/15/17 06/15/17 06/15/17 06/16/17 06/16/17 06/16/17 07:00 15:00 23:00 07:00 15:00 23:00 Intake Total 390 ml 720 ml 640 ml Output Total 1000 ml 600 ml 1500 ml Balance -610 ml 120 ml -860 ml Intake Oral 240 ml 720 ml 480 ml IV Total 150 ml 160 ml Output Urine Total 1000 ml 600 ml 1500 ml # Bowel Movements 0 0 Physical Exam GENERAL: SKIN: Warm and dry. HEAD: Normocephalic. EYES: No scleral icterus. No injection or drainage. NECK: Supple, trachea midline. No JVD or lymphadenopathy. CARDIOVASCULAR: Regular rate and rhythm without murmurs, gallops, or rubs. RESPIRATORY: Breath sounds equal bilaterally. No accessory muscle use. GASTROINTESTINAL: Abdomen soft, non-tender, nondistended. MUSCULOSKELETAL: No cyanosis, or edema. BACK: Nontender without obvious deformity. No CVA tenderness. Laboratory Laboratory Tests Test 06/15/17 21:10 06/16/17 03:50 Activated Partial Thromboplast Time 49.8 SEC 64.7 SEC White Blood Count 7.0 TH/MM3 Red Blood Count 5.59 MIL/MM3 Hemoglobin 14.7 GM/DL Hematocrit 44.0 % Mean Corpuscular Volume 78.7 FL Mean Corpuscular Hemoglobin 26.3 PG Mean Corpuscular Hemoglobin Concent 33.4 % Red Cell Distribution Width 15.0 % Platelet Count 188 TH/MM3 Mean Platelet Volume 8.5 FL Blood Urea Nitrogen 22 MG/DL Creatinine 1.09 MG/DL Random Glucose 229 MG/DL Calcium Level 9.1 MG/DL Magnesium Level 2.1 MG/DL Sodium Level 138 MEQ/L Potassium Level 3.8 MEQ/L Chloride Level 101 MEQ/L Carbon Dioxide Level 29.0 MEQ/L Anion Gap 8 MEQ/L Estimat Glomerular Filtration Rate 69 ML/MIN B-Type Natriuretic Peptide 198 PG/ML Assessment and Plan Problem List: (1) Cardiomyopathy ICD Codes: I42.9 - Cardiomyopathy, unspecified (2) Mitral regurgitation ICD Codes: I34.0 - Nonrheumatic mitral (valve) insufficiency (3) Pulmonary HTN ICD Codes: I27.20 - Pulmonary hypertension, unspecified (4) CAD (coronary artery disease) ICD Codes: I25.10 - Atherosclerotic heart disease of [place] coronary artery without angina pectoris (5) Diabetes mellitus ICD Codes: E11.9 - Type 2 diabetes mellitus without complications (6) Multi-vessel coronary artery stenosis ICD Codes: I25.10 - Atherosclerotic heart disease of [place] coronary artery without angina pectoris (7) Unstable angina pectoris ICD Codes: I20.0 - Unstable angina Status: Acute (8) Decreased cardiac ejection fraction ICD Codes: R93.1 - Abnormal findings on diagnostic imaging of heart and coronary circulation Assessment and Plan 1.) Cardiomyopathy - bnp down to <200, becoming euvolemic, dyspnea improved, f/ u pulmonary consult, continue coreg, continue lasix 20 mg bid, aldactone 50mg bid, change enalapril to lisinopril 5 mg qd, decrease aspirin 162 mg qd, f/u bmp /bnp in am, may be accepted for heart transplant eval at [facility] if can get medicare/medicaid, d/w Dr Sosa @ and case management, patient and his family extensively 2.) CAD - assymptomatic off iv hep, continue aspirin, plavix, Angina resolved with diuresis presumably due decrease wall tension from lower filling pressures Garrett Henao MD Jun 16, 2017 15:52
[2017-06-16] MEDS: ALPRAZolam 0.25 MG TAB PO PRN (20:19)
[2017-06-16] MEDS: INSULIN DETEMIR 100 UNITS/ML VIAL SQ SCH (20:19)
[2017-06-16] MEDS: ATORVASTATIN 40 MG TAB PO SCH (20:19)
[2017-06-17] VITALS (28 sets, daily range): BP systolic 94–135; BP diastolic 57–82; PULSE 55–98; RESP 16–18; TEMP 97.5–98.6; O2SAT 96–99
[2017-06-17] MEDS: INSULIN ASPART SUPPLEMENTAL SCALE SQ SCH ×4 (08:00→21:00)
[2017-06-17] MEDS: FUROSEMIDE 20 MG/2 ML VIAL IV PUSH SCH ×2 (08:12→17:29)
[2017-06-17] MEDS: ACETAMINOPHEN 325 MG TAB PO PRN (08:12)
[2017-06-17] MEDS: ASPIRIN EC 81 MG TABEC PO SCH (08:12)
[2017-06-17] MEDS: FAMOTIDINE 20 MG TAB PO SCH ×2 (08:12→21:34)
[2017-06-17] MEDS: SPIRONOLACTONE 50 MG TAB PO SCH (08:12)
[2017-06-17] MEDS: CARVEDILOL 6.25 MG TAB PO SCH ×2 (08:13→21:34)
[2017-06-17] MEDS: DOCUSATE SODIUM 50 MG/SENNA 8.6 MG TAB PO SCH ×2 (08:13→21:00)
[2017-06-17] MEDS: CLOPIDOGREL 75 MG TAB PO SCH (08:13)
[2017-06-17] MEDS: LISINOPRIL 5 MG TAB PO SCH (08:13)
[2017-06-17] MEDS: SODIUM CHLORIDE 0.9% FLUSH 10 ML FLUSH IV FLUSH SCH ×2 (08:13→21:34)
[2017-06-17 08:26] LABS: BICARBONATE 26.8 MEQ/L (21.0-32.0); CALCIUM 9.2 MG/DL (8.5-10.1); CREATININE 1.06 MG/DL (0.60-1.30); MAGNESIUM 2.1 MG/DL (1.5-2.5)
--- NOTE | 2017-06-17 09:45 | HHI.PR ---
Subjective Remarks Headach Objective Vital Signs Date Time Temp Pulse Resp B/P (MAP) Pulse Ox O2 Delivery O2 Flow Rate FiO2 06/17/17 06:00 55 06/17/17 05:00 58 06/17/17 04:00 98.5 59 18 94/57 (69) 97 06/17/17 04:00 Nasal Cannula 2.00 06/17/17 04:00 59 06/17/17 03:00 59 06/17/17 02:00 57 06/17/17 01:00 56 06/17/17 00:00 62 06/17/17 00:00 98.4 62 18 111/65 (80) 96 06/17/17 00:00 Nasal Cannula 2.00 06/16/17 23:00 59 06/16/17 22:00 55 06/16/17 21:00 58 06/16/17 20:00 67 06/16/17 20:00 98.2 67 20 95/53 (67) 95 06/16/17 20:00 Nasal Cannula 2.00 06/16/17 19:18 Nasal Cannula 2.00 06/16/17 18:06 55 06/16/17 16:57 19 06/16/17 16:00 58 06/16/17 15:25 97.7 69 19 118/75 (89) 97 06/16/17 15:00 62 06/16/17 14:00 62 06/16/17 13:29 98 Nasal Cannula 2.00 06/16/17 13:00 66 06/16/17 12:00 60 06/16/17 11:32 98.0 62 22 106/66 (79) 98 06/16/17 11:00 63 06/16/17 10:00 74 I/O 06/16/17 06/16/17 06/16/17 06/17/17 06/17/17 06/17/17 07:00 15:00 23:00 07:00 15:00 23:00 Intake Total 640 ml 800 ml 240 ml Output Total 1500 ml 800 ml 700 ml Balance -860 ml 0 ml -460 ml Intake Oral 480 ml 800 ml 240 ml IV Total 160 ml Output Urine Total 1500 ml 800 ml 700 ml # Bowel Movements 0 0 Result Diagram: 06/16/17 0350 06/17/17 0733 Imaging Alert, fully oriented Lungs: ventilated Heart: S1, S2 regular, no gallop Abdomen: soft, no mass Ext: No edema Last Impressions Chest X-Ray 06/12/17 1225 Signed Impressions: Service Date/Time: Monday, June 12, 2017 13:08 - CONCLUSION: No acute disease. No significant change has occurred. Evan Hampton MD Current Medications Medications (Trade) Dose Ordered Sig/Erika Route Start Time Stop Time Status Last Admin (NovoLOG SUPPLEMENTAL SCALE) 1 ACHS SLIDING SCALE SQ 06/12/17 17:00 06/17/17 08:00 (D50w (Vial) Inj) 50 ml UNSCH PRN IV PUSH 06/12/17 16:00 (Glucagon Inj) 1 mg UNSCH PRN OTHER 06/12/17 16:00 (Coreg) 6.25 mg BID PO 06/12/17 21:00 06/17/17 08:13 (Plavix) 75 mg DAILY PO 06/13/17 09:00 06/17/17 08:13 (Nitrostat Sl) 0.4 mg Q5M PRN SL 06/12/17 16:00 06/13/17 20:35 (Tylenol) 650 mg Q6H PRN PO 06/12/17 16:00 06/17/17 08:12 (Xanax) 0.25 mg Q8H PRN PO 06/12/17 16:00 06/16/17 20:19 (Zofran Inj) 4 mg Q6H PRN IV PUSH 06/12/17 16:00 06/16/17 12:35 (Pepcid) 20 mg BID PO 06/12/17 21:00 06/17/17 08:12 (NS Flush) 2 ml UNSCH PRN IV FLUSH 06/12/17 16:00 (NS Flush) 2 ml BID IV FLUSH 06/12/17 21:00 06/17/17 08:13 (Tylenol) 650 mg Q4H PRN PO 06/12/17 16:00 (Reglan Inj) 5 mg Q6H PRN IV PUSH 06/12/17 16:00 (Restoril) 15 mg HS PRN PO 06/12/17 16:00 (Tylenol) 650 mg Q6H PRN PO 06/12/17 16:00 (Percocet 5-325 Mg) 1 tab Q6H PRN PO 06/12/17 16:00 06/13/17 12:03 (Percocet 10-325 Mg) 1 tab Q6H PRN PO 06/12/17 16:00 (Morphine Inj) 2 mg Q3H PRN IV PUSH 06/12/17 16:00 (Morphine Inj) 4 mg Q3H PRN IV PUSH 06/12/17 16:30 (Morphine Inj) 4 mg Q3H PRN IV PUSH 06/12/17 16:30 (Narcan Inj) 0.4 mg UNSCH PRN IV PUSH 06/12/17 16:00 (Zenaida-Colace) 1 tab BID PO 06/12/17 21:00 06/17/17 08:13 (Milk Of Magnesia Liq) 30 ml Q12H PRN PO 06/12/17 16:00 (Senokot) 17.2 mg Q12H PRN PO 06/12/17 16:00 (Dulcolax Supp) 10 mg DAILY PRN RECTAL 06/12/17 16:00 (Lactulose Liq) 30 ml DAILY PRN PO 06/12/17 16:00 Sodium Chloride 1,000 ml @ 30 mls/hr Q24H IV 06/13/17 13:10 (Lasix Inj) 20 mg BID@ IV PUSH 06/14/17 18:00 06/17/17 08:12 (Lipitor) 40 mg HS PO 06/14/17 21:00 06/16/17 20:19 (Levemir Inj) 10 units HS SQ 06/14/17 21:00 06/16/17 20:19 (Aldactone) 50 mg BID@, PO 06/15/17 09:00 06/17/17 08:12 (Prinivil) 5 mg DAILY PO 06/16/17 09:00 06/17/17 08:13 (Ecotrin Ec) 162 mg DAILY PO 06/16/17 09:00 06/17/17 08:12 Assessment and Plan Problem List: (1) Cardiomyopathy ICD Codes: I42.9 - Cardiomyopathy, unspecified Plan: Ischemic cardiomyopathy CHF II On optimal medical management I will decrease aldactone. If BP ok then entresto ill be considered I am waiting for the [facility] before making a decision about ICD vs Defib vest. No need for transplant evaluation yet. (2) CAD (coronary artery disease) ICD Codes: I25.10 - Atherosclerotic heart disease of [place] coronary artery without angina pectoris Plan: Hx of CABG No chest pain (3) Hypertension ICD Codes: I10 - Essential (primary) hypertension Plan: SBP 94 Tyesha Aguirre MD Jun 17, 2017 09:45
--- NOTE | 2017-06-17 12:19 | HHI.PR ---
Subjective Remarks Patient reports he is feeling okay. No chest pain today. Objective Vitals Vital Signs Date Time Temp Pulse Resp B/P (MAP) Pulse Ox O2 Delivery O2 Flow Rate FiO2 06/17/17 08:15 97 Nasal Cannula 2.00 06/17/17 08:15 97.5 57 18 111/59 (76) 97 06/17/17 06:00 55 06/17/17 05:00 58 06/17/17 04:00 98.5 59 18 94/57 (69) 97 06/17/17 04:00 Nasal Cannula 2.00 06/17/17 04:00 59 06/17/17 03:00 59 06/17/17 02:00 57 06/17/17 01:00 56 06/17/17 00:00 62 06/17/17 00:00 98.4 62 18 111/65 (80) 96 06/17/17 00:00 Nasal Cannula 2.00 06/16/17 23:00 59 06/16/17 22:00 55 06/16/17 21:00 58 06/16/17 20:00 67 06/16/17 20:00 98.2 67 20 95/53 (67) 95 06/16/17 20:00 Nasal Cannula 2.00 06/16/17 19:18 Nasal Cannula 2.00 06/16/17 18:06 55 06/16/17 16:57 19 06/16/17 16:00 58 06/16/17 15:25 97.7 69 19 118/75 (89) 97 06/16/17 15:00 62 06/16/17 14:00 62 06/16/17 13:29 98 Nasal Cannula 2.00 06/16/17 13:00 66 I/O 06/16/17 06/16/17 06/16/17 06/17/17 06/17/17 06/17/17 07:00 15:00 23:00 07:00 15:00 23:00 Intake Total 640 ml 800 ml 240 ml Output Total 1500 ml 800 ml 700 ml Balance -860 ml 0 ml -460 ml Intake Oral 480 ml 800 ml 240 ml IV Total 160 ml Output Urine Total 1500 ml 800 ml 700 ml # Bowel Movements 0 0 Result Diagram: 06/16/17 0350 06/17/17 0733 Objective Remarks GENERAL: This is a well-nourished, well-developed patient, in no apparent distress. CARDIOVASCULAR: Normal rate and regular rhythm without murmurs, gallops, or rubs. RESPIRATORY: Good respiratory efforts. Diminished breath sounds at the bases, otherwise clear to auscultation bilaterally. GASTROINTESTINAL: Abdomen soft, non-tender, non-distended. Normal active bowel sounds MUSCULOSKELETAL: Extremities without cyanosis, or edema. NEURO: Alert & Oriented x4 to person, place, time, situation. Moves all ext x4 PSYCH: Appropriate mood and affect. A/P Problem List: (1) Hx of CABG ICD Code: Z95.1 - Presence of aortocoronary bypass graft (2) Decreased cardiac ejection fraction ICD Code: R93.1 - Abnormal findings on diagnostic imaging of heart and coronary circulation (3) Hypertension ICD Code: I10 - Essential (primary) hypertension (4) Obese ICD Code: E66.9 - Obesity, unspecified (5) Hyperlipidemia ICD Code: E78.5 - Hyperlipidemia, unspecified (6) CAD (coronary artery disease) ICD Code: I25.10 - Atherosclerotic heart disease of [place] coronary artery without angina pectoris (7) Diabetes mellitus ICD Code: E11.9 - Type 2 diabetes mellitus without complications (8) Unstable angina pectoris ICD Code: I20.0 - Unstable angina Status: Acute (9) Multi-vessel coronary artery stenosis ICD Code: I25.10 - Atherosclerotic heart disease of [place] coronary artery without angina pectoris Assessment and Plan 57 year-old male with Multivessel coronary stenosis in patient with prior history of CABG Status post left heart catheterization 06/13/17 Appreciate input from cardiology. Optimize medical management. EP to review records from [place] when available to decide on ICD Vs Defib vest. Continue with heparin drip, Plavix, aspirin, beta adan, statin, BRIANA inhibitor, Aldactone Diabetes mellitus continue on sliding scale coverage with Accu-Cheks before meals and at bedtime ;hold his Glucophage and metformin Hemoglobin A1c of 9.8 Continue Levemir 10 units at bedtime Hypertension Continue home medications COPD tobacco oxygen as needed -Appreciate pulmonology following. GERD Continue Pepcid Chronic back pain Continue pain meds as needed DVT and GI prophylaxis On heparin, stool softeners as needed. Audrey No MD Jun 17, 2017 12:19
[2017-06-17] MEDS: ONDANSETRON HCL 4 MG/2 ML VIAL IV PUSH PRN (13:15)
--- NOTE | 2017-06-17 15:14 | PD.CARD.PN ---
Subjective Subjective Remarks denies chest pain, on oxygen, off heparin, in nad, appears comfortable Objective Medications Current Medications Medications (Trade) Dose Ordered Sig/Erika Route Start Time Stop Time Status Last Admin (NovoLOG SUPPLEMENTAL SCALE) 1 ACHS SLIDING SCALE SQ 06/12/17 17:00 06/17/17 12:00 (D50w (Vial) Inj) 50 ml UNSCH PRN IV PUSH 06/12/17 16:00 (Glucagon Inj) 1 mg UNSCH PRN OTHER 06/12/17 16:00 (Coreg) 6.25 mg BID PO 06/12/17 21:00 06/17/17 08:13 (Plavix) 75 mg DAILY PO 06/13/17 09:00 06/17/17 08:13 (Nitrostat Sl) 0.4 mg Q5M PRN SL 06/12/17 16:00 06/13/17 20:35 (Tylenol) 650 mg Q6H PRN PO 06/12/17 16:00 06/17/17 08:12 (Xanax) 0.25 mg Q8H PRN PO 06/12/17 16:00 06/16/17 20:19 (Zofran Inj) 4 mg Q6H PRN IV PUSH 06/12/17 16:00 06/17/17 13:15 (Pepcid) 20 mg BID PO 06/12/17 21:00 06/17/17 08:12 (NS Flush) 2 ml UNSCH PRN IV FLUSH 06/12/17 16:00 (NS Flush) 2 ml BID IV FLUSH 06/12/17 21:00 06/17/17 08:13 (Tylenol) 650 mg Q4H PRN PO 06/12/17 16:00 (Reglan Inj) 5 mg Q6H PRN IV PUSH 06/12/17 16:00 (Restoril) 15 mg HS PRN PO 06/12/17 16:00 (Tylenol) 650 mg Q6H PRN PO 06/12/17 16:00 (Percocet 5-325 Mg) 1 tab Q6H PRN PO 06/12/17 16:00 06/13/17 12:03 (Percocet 10-325 Mg) 1 tab Q6H PRN PO 06/12/17 16:00 (Morphine Inj) 2 mg Q3H PRN IV PUSH 06/12/17 16:00 (Morphine Inj) 4 mg Q3H PRN IV PUSH 06/12/17 16:30 (Morphine Inj) 4 mg Q3H PRN IV PUSH 06/12/17 16:30 (Narcan Inj) 0.4 mg UNSCH PRN IV PUSH 06/12/17 16:00 (Zenaida-Colace) 1 tab BID PO 06/12/17 21:00 06/17/17 08:13 (Milk Of Magnesia Liq) 30 ml Q12H PRN PO 06/12/17 16:00 (Senokot) 17.2 mg Q12H PRN PO 06/12/17 16:00 (Dulcolax Supp) 10 mg DAILY PRN RECTAL 06/12/17 16:00 (Lactulose Liq) 30 ml DAILY PRN PO 06/12/17 16:00 Sodium Chloride 1,000 ml @ 30 mls/hr Q24H IV 06/13/17 13:10 (Lasix Inj) 20 mg BID@09,18 IV PUSH 06/14/17 18:00 06/17/17 08:12 (Lipitor) 40 mg HS PO 06/14/17 21:00 06/16/17 20:19 (Levemir Inj) 10 units HS SQ 06/14/17 21:00 06/16/17 20:19 (Prinivil) 5 mg DAILY PO 06/16/17 09:00 06/17/17 08:13 (Ecotrin Ec) 162 mg DAILY PO 06/16/17 09:00 06/17/17 08:12 (Aldactone) 50 mg DAILY PO 06/18/17 09:00 Vital Signs / I&O Vital Signs Date Time Temp Pulse Resp B/P (MAP) Pulse Ox O2 Delivery O2 Flow Rate FiO2 06/17/17 14:01 56 06/17/17 13:00 72 06/17/17 12:00 58 06/17/17 11:15 98.0 61 18 135/82 (99) 99 06/17/17 11:00 64 06/17/17 10:00 62 06/17/17 09:00 62 06/17/17 08:15 97 Nasal Cannula 2.00 06/17/17 08:15 97.5 57 18 111/59 (76) 97 06/17/17 08:00 58 06/17/17 07:00 73 06/17/17 06:00 55 06/17/17 05:00 58 06/17/17 04:00 98.5 59 18 94/57 (69) 97 06/17/17 04:00 Nasal Cannula 2.00 06/17/17 04:00 59 06/17/17 03:00 59 06/17/17 02:00 57 06/17/17 01:00 56 06/17/17 00:00 62 06/17/17 00:00 98.4 62 18 111/65 (80) 96 06/17/17 00:00 Nasal Cannula 2.00 06/16/17 23:00 59 06/16/17 22:00 55 06/16/17 21:00 58 06/16/17 20:00 67 06/16/17 20:00 98.2 67 20 95/53 (67) 95 06/16/17 20:00 Nasal Cannula 2.00 06/16/17 19:18 Nasal Cannula 2.00 06/16/17 18:06 55 06/16/17 16:57 19 06/16/17 16:00 58 06/16/17 15:25 97.7 69 19 118/75 (89) 97 I/O 06/16/17 06/16/17 06/16/17 06/17/17 06/17/17 06/17/17 07:00 15:00 23:00 07:00 15:00 23:00 Intake Total 640 ml 800 ml 240 ml Output Total 1500 ml 800 ml 700 ml Balance -860 ml 0 ml -460 ml Intake Oral 480 ml 800 ml 240 ml IV Total 160 ml Output Urine Total 1500 ml 800 ml 700 ml # Bowel Movements 0 0 Physical Exam GENERAL: SKIN: Warm and dry. HEAD: Normocephalic. EYES: No scleral icterus. No injection or drainage. NECK: Supple, trachea midline. No JVD or lymphadenopathy. CARDIOVASCULAR: Regular rate and rhythm without murmurs, gallops, or rubs. RESPIRATORY: Breath sounds equal bilaterally. No accessory muscle use. GASTROINTESTINAL: Abdomen soft, non-tender, nondistended. MUSCULOSKELETAL: No cyanosis, or edema. BACK: Nontender without obvious deformity. No CVA tenderness. Laboratory Laboratory Tests Test 06/17/17 07:33 Blood Urea Nitrogen 23 MG/DL Creatinine 1.06 MG/DL Random Glucose 208 MG/DL Calcium Level 9.2 MG/DL Magnesium Level 2.1 MG/DL Sodium Level 136 MEQ/L Potassium Level 4.2 MEQ/L Chloride Level 101 MEQ/L Carbon Dioxide Level 26.8 MEQ/L Anion Gap 8 MEQ/L Estimat Glomerular Filtration Rate 72 ML/MIN B-Type Natriuretic Peptide 124 PG/ML Assessment and Plan Problem List: (1) Cardiomyopathy ICD Codes: I42.9 - Cardiomyopathy, unspecified (2) Mitral regurgitation ICD Codes: I34.0 - Nonrheumatic mitral (valve) insufficiency (3) Pulmonary HTN ICD Codes: I27.20 - Pulmonary hypertension, unspecified (4) CAD (coronary artery disease) ICD Codes: I25.10 - Atherosclerotic heart disease of [place] coronary artery without angina pectoris (5) Diabetes mellitus ICD Codes: E11.9 - Type 2 diabetes mellitus without complications (6) Multi-vessel coronary artery stenosis ICD Codes: I25.10 - Atherosclerotic heart disease of [place] coronary artery without angina pectoris (7) Unstable angina pectoris ICD Codes: I20.0 - Unstable angina Status: Acute (8) Decreased cardiac ejection fraction ICD Codes: R93.1 - Abnormal findings on diagnostic imaging of heart and coronary circulation Assessment and Plan 1.) Cardiomyopathy - bnp down to @100, euvolemic, dyspnea improved, f/u pulmonary consult, continue coreg, continue lasix 20 mg bid, aldactone 50mg bid , change enalapril to lisinopril 5 mg qd, decrease aspirin 162 mg qd, f/u bmp/ bnp in am, [facility]icaid, d/w Dr Sosa @ and case management, patient and his family extensively 2.) CAD - assymptomatic off iv hep, continue aspirin, plavix, Angina resolved with diuresis presumably due decrease wall tension from lower filling pressures Garrett Henao MD Jun 17, 2017 15:14
[2017-06-17] MEDS: INSULIN DETEMIR 100 UNITS/ML VIAL SQ SCH (21:00)
--- NOTE | 2017-06-17 21:01 | HHI.PR ---
Subjective Remarks 57 YOWM Wth CAD,CABG,CMP Breathing better On RA No SOB Objective Vital Signs Vital Signs Date Time Temp Pulse Resp B/P (MAP) Pulse Ox O2 Delivery O2 Flow Rate FiO2 06/17/17 18:00 86 06/17/17 17:00 98 06/17/17 16:00 98 06/17/17 15:15 98.5 64 18 135/80 (98) 97 06/17/17 15:00 80 06/17/17 14:01 56 06/17/17 13:00 72 06/17/17 12:00 58 06/17/17 11:15 98.0 61 18 135/82 (99) 99 06/17/17 11:00 64 06/17/17 10:00 62 06/17/17 09:00 62 06/17/17 08:15 97 Nasal Cannula 2.00 06/17/17 08:15 97.5 57 18 111/59 (76) 97 06/17/17 08:00 58 06/17/17 07:00 73 06/17/17 06:00 55 06/17/17 05:00 58 06/17/17 04:00 98.5 59 18 94/57 (69) 97 06/17/17 04:00 Nasal Cannula 2.00 06/17/17 04:00 59 06/17/17 03:00 59 06/17/17 02:00 57 06/17/17 01:00 56 06/17/17 00:00 62 06/17/17 00:00 98.4 62 18 111/65 (80) 96 06/17/17 00:00 Nasal Cannula 2.00 06/16/17 23:00 59 06/16/17 22:00 55 06/16/17 21:00 58 I/O 06/16/17 06/16/17 06/16/17 06/17/17 06/17/17 06/17/17 07:00 15:00 23:00 07:00 15:00 23:00 Intake Total 640 ml 800 ml 240 ml 480 ml Output Total 1500 ml 800 ml 700 ml 1225 ml Balance -860 ml 0 ml -460 ml -745 ml Intake Oral 480 ml 800 ml 240 ml 480 ml IV Total 160 ml Output Urine Total 1500 ml 800 ml 700 ml 1225 ml # Voids 4 # Bowel Movements 0 0 0 Result Diagram: 06/16/17 0350 06/17/17 0733 Objective Remarks GENERAL: WBWN WM, NAD SKIN: Warm and dry. HEAD: Normocephalic. EYES: No scleral icterus. No injection or drainage. NECK: Supple, trachea midline. No JVD or lymphadenopathy. CARDIOVASCULAR: Regular rate and rhythm without murmurs, gallops, or rubs. RESPIRATORY: Breath sounds equal bilaterally. No accessory muscle use. GASTROINTESTINAL: Abdomen soft, non-tender, nondistended. MUSCULOSKELETAL: No cyanosis, or edema. BACK: Nontender without obvious deformity. No CVA tenderness. A/P Assessment and Plan IMPRESSION: 1. Shortness of breath, likely from his cardiomyopathy; however, need to rule out underlying chronic obstructive pulmonary disease. He has a long history of smoking. 2. Coronary artery disease, status post coronary artery bypass grafting. 3. Hypertension. 4. History of nicotine use PLAN: Check PFT planning to send to [facility] for heart transplant eval Stable on Chaparro Valdez MD Jun 17, 2017 21:01
[2017-06-17] MEDS: ATORVASTATIN 40 MG TAB PO SCH (21:35)
[2017-06-17] MEDS: ALPRAZolam 0.25 MG TAB PO PRN (21:37)
[2017-06-18] VITALS (26 sets, daily range): BP systolic 117–130; BP diastolic 73–83; PULSE 58–87; RESP 16–18; TEMP 97–98.4; O2SAT 98–100
[2017-06-18 07:23] LABS: HEMATOCRIT 48.3 % (39.0-51.0); HEMOGLOBIN 15.9 GM/DL (13.0-17.0); MEAN CELL VOLUME 78.5 FL (80.0-100.0); MEAN CORPUSCULAR HEMOGLOBIN 25.8 PG (27.0-34.0); MEAN CORPUSCULAR HGB CONC 32.9 % (32.0-36.0); MEAN PLATELET VOLUME 8.8 FL (7.0-11.0); PLATELET COUNT 205 TH/MM3 (150-450); RED BLOOD COUNT 6.16 MIL/MM3 (4.50-5.90); RED CELL DISTRIBUTION WIDTH 15.2 % (11.6-17.2); WHITE BLOOD COUNT 7.3 TH/MM3 (4.0-11.0)
[2017-06-18 07:44] LABS: CALCIUM 9.5 MG/DL (8.5-10.1); CREATININE 1.09 MG/DL (0.60-1.30)
[2017-06-18] MEDS: SPIRONOLACTONE 50 MG TAB PO SCH (09:10)
[2017-06-18] MEDS: FAMOTIDINE 20 MG TAB PO SCH ×2 (09:10→20:49)
[2017-06-18] MEDS: DOCUSATE SODIUM 50 MG/SENNA 8.6 MG TAB PO SCH ×2 (09:10→20:49)
[2017-06-18] MEDS: CARVEDILOL 6.25 MG TAB PO SCH ×2 (09:10→20:49)
[2017-06-18] MEDS: CLOPIDOGREL 75 MG TAB PO SCH (09:10)
[2017-06-18] MEDS: SODIUM CHLORIDE 0.9% FLUSH 10 ML FLUSH IV FLUSH SCH ×2 (09:11→20:49)
[2017-06-18] MEDS: ASPIRIN EC 81 MG TABEC PO SCH (09:11)
[2017-06-18] MEDS: FUROSEMIDE 20 MG/2 ML VIAL IV PUSH SCH ×2 (09:11→17:01)
[2017-06-18] MEDS: LISINOPRIL 5 MG TAB PO SCH (09:12)
[2017-06-18] MEDS: INSULIN ASPART SUPPLEMENTAL SCALE SQ SCH ×4 (09:15→21:00)
[2017-06-18] MEDS: SODIUM CHLOR 0.9% 1000 ML INJ 1,000 ML IV SCH ×2 (09:17→12:39)
[2017-06-18] MEDS: ACETAMINOPHEN 325 MG TAB PO PRN ×2 (09:17→20:50)
--- NOTE | 2017-06-18 19:51 | HHI.PR ---
Subjective Remarks 57 YOWM Wth CAD,CABG,CMP Breathing better On RA No SOB Objective Vital Signs Vital Signs Date Time Temp Pulse Resp B/P (MAP) Pulse Ox O2 Delivery O2 Flow Rate FiO2 06/18/17 18:02 69 06/18/17 17:16 99 21 06/18/17 17:06 70 06/18/17 16:26 76 06/18/17 15:57 18 06/18/17 15:21 100 Room Air 06/18/17 15:21 97.9 66 18 130/83 (99) 100 06/18/17 15:21 67 06/18/17 14:15 77 06/18/17 13:02 79 06/18/17 12:22 76 06/18/17 11:24 97.6 62 18 127/77 (94) 100 06/18/17 11:24 68 06/18/17 11:24 100 Room Air 06/18/17 10:03 72 06/18/17 09:55 16 06/18/17 09:54 87 06/18/17 09:53 99 21 06/18/17 08:15 97.0 68 18 117/80 (92) 98 06/18/17 08:15 68 06/18/17 08:15 98 Room Air 06/18/17 06:00 65 06/18/17 05:00 74 06/18/17 04:00 68 06/18/17 03:30 98.0 72 16 117/80 (92) 99 06/18/17 03:00 68 06/18/17 02:00 70 06/18/17 01:00 71 06/18/17 00:00 63 06/17/17 23:30 98.1 69 16 128/80 (96) 98 06/17/17 23:00 74 06/17/17 22:00 64 06/17/17 21:00 68 06/17/17 20:00 98.6 64 16 124/72 (89) 96 06/17/17 20:00 66 06/17/17 20:00 96 Room Air I/O 06/17/17 06/17/17 06/17/17 06/18/17 06/18/17 06/18/17 06:59 14:59 22:59 06:59 14:59 22:59 Intake Total 240 ml 480 ml 240 ml 480 ml Output Total 700 ml 1225 ml 1075 ml 1000 ml Balance -460 ml -745 ml -835 ml -520 ml Intake Oral 240 ml 480 ml 240 ml 480 ml Output Urine Total 700 ml 1225 ml 1075 ml 1000 ml # Voids 4 # Bowel Movements 0 0 0 0 Result Diagram: 06/18/1762406/18/17622 Objective Remarks GENERAL: WBWN WM, NAD SKIN: Warm and dry. HEAD: Normocephalic. EYES: No scleral icterus. No injection or drainage. NECK: Supple, trachea midline. No JVD or lymphadenopathy. CARDIOVASCULAR: Regular rate and rhythm without murmurs, gallops, or rubs. RESPIRATORY: Breath sounds equal bilaterally. No accessory muscle use. GASTROINTESTINAL: Abdomen soft, non-tender, nondistended. MUSCULOSKELETAL: No cyanosis, or edema. BACK: Nontender without obvious deformity. No CVA tenderness. A/P Assessment and Plan IMPRESSION: 1. Shortness of breath, likely from his cardiomyopathy; however, need to rule out underlying chronic obstructive pulmonary disease. He has a long history of smoking. 2. Coronary artery disease, status post coronary artery bypass grafting. 3. Hypertension. 4. History of nicotine use PLAN: PFT not interpretable Will rpt PFT planning to send to [facility] for heart transplant eval Stable on RA Chaparro Tong MD Jun 18, 2017 19:50
[2017-06-18] MEDS: ATORVASTATIN 40 MG TAB PO SCH (20:50)
[2017-06-18] MEDS: INSULIN DETEMIR 100 UNITS/ML VIAL SQ SCH (21:00)
--- NOTE | 2017-06-18 21:56 | HHI.PR ---
Subjective Remarks Late entry. Patient seen around 10 AM. DW RN he is having nausea and was given IV Zofran. He denies chest pain currently. Reports fatigue. Objective Vitals Vital Signs Date Time Temp Pulse Resp B/P (MAP) Pulse Ox O2 Delivery O2 Flow Rate FiO2 06/18/17 18:02 69 06/18/17 17:16 99 21 06/18/17 17:06 70 06/18/17 16:26 76 06/18/17 15:57 18 06/18/17 15:21 100 Room Air 06/18/17 15:21 97.9 66 18 130/83 (99) 100 06/18/17 15:21 67 06/18/17 14:15 77 06/18/17 13:02 79 06/18/17 12:22 76 06/18/17 11:24 97.6 62 18 127/77 (94) 100 06/18/17 11:24 68 06/18/17 11:24 100 Room Air 06/18/17 10:03 72 06/18/17 09:55 16 06/18/17 09:54 87 06/18/17 09:53 99 21 06/18/17 08:15 97.0 68 18 117/80 (92) 98 06/18/17 08:15 68 06/18/17 08:15 98 Room Air 06/18/17 06:00 65 06/18/17 05:00 74 06/18/17 04:00 68 06/18/17 03:30 98.0 72 16 117/80 (92) 99 06/18/17 03:00 68 06/18/17 02:00 70 06/18/17 01:00 71 06/18/17 00:00 63 06/17/17 23:30 98.1 69 16 128/80 (96) 98 06/17/17 23:00 74 06/17/17 22:00 64 I/O 06/17/17 06/17/17 06/17/17 06/18/17 06/18/17 06/18/17 07:00 15:00 23:00 07:00 15:00 23:00 Intake Total 240 ml 480 ml 240 ml 480 ml Output Total 700 ml 1225 ml 1075 ml 1000 ml Balance -460 ml -745 ml -835 ml -520 ml Intake Oral 240 ml 480 ml 240 ml 480 ml Output Urine Total 700 ml 1225 ml 1075 ml 1000 ml # Voids 4 # Bowel Movements 0 0 0 0 Result Diagram: 06/18/1762406/18/17622 Objective Remarks GENERAL: This is a well-nourished, well-developed patient, in no apparent distress. CARDIOVASCULAR: Normal rate and regular rhythm without murmurs, gallops, or rubs. RESPIRATORY: Good respiratory efforts. Diminished breath sounds at the bases, otherwise clear to auscultation bilaterally. GASTROINTESTINAL: Abdomen soft, non-tender, non-distended. Normal active bowel sounds MUSCULOSKELETAL: Extremities without cyanosis, or edema. NEURO: Alert & Oriented x4 to person, place, time, situation. Moves all ext x4 PSYCH: Appropriate mood and affect. A/P Problem List: (1) Hx of CABG ICD Code: Z95.1 - Presence of aortocoronary bypass graft (2) Decreased cardiac ejection fraction ICD Code: R93.1 - Abnormal findings on diagnostic imaging of heart and coronary circulation (3) Hypertension ICD Code: I10 - Essential (primary) hypertension (4) Obese ICD Code: E66.9 - Obesity, unspecified (5) Hyperlipidemia ICD Code: E78.5 - Hyperlipidemia, unspecified (6) CAD (coronary artery disease) ICD Code: I25.10 - Atherosclerotic heart disease of [place] coronary artery without angina pectoris (7) Diabetes mellitus ICD Code: E11.9 - Type 2 diabetes mellitus without complications (8) Unstable angina pectoris ICD Code: I20.0 - Unstable angina Status: Acute (9) Multi-vessel coronary artery stenosis ICD Code: I25.10 - Atherosclerotic heart disease of [place] coronary artery without angina pectoris Assessment and Plan 57 year-old male with Multivessel coronary stenosis in patient with prior history of CABG Status post left heart catheterization 06/13/17 Appreciate input from cardiology. Optimize medical management. EP to review records from [place] when available to decide on ICD Vs Defib vest. Continue with heparin drip, Plavix, aspirin, beta adan, statin, BRIANA inhibitor, Aldactone Transition him to oral Lasix today Diabetes mellitus continue on sliding scale coverage with Accu-Cheks before meals and at bedtime ;hold his Glucophage and metformin Hemoglobin A1c of 9.8 Continue Levemir 10 units at bedtime Hypertension Continue home medications COPD tobacco oxygen as needed -Appreciate pulmonology following. GERD Continue Pepcid Chronic back pain Continue pain meds as needed DVT and GI prophylaxis On heparin, stool softeners as needed. Discharge Planning May need ICD per Cardiology. Audrey No MD Jun 18, 2017 21:56
--- NOTE | 2017-06-18 23:49 | PD.CARD.PN ---
Subjective Subjective Remarks denies chest pain, on oxygen, off heparin, in nad, appears comfortable Objective Medications Current Medications Medications (Trade) Dose Ordered Sig/Erika Route Start Time Stop Time Status Last Admin (NovoLOG SUPPLEMENTAL SCALE) 1 ACHS SLIDING SCALE SQ 06/12/17 17:00 06/18/17 21:00 (D50w (Vial) Inj) 50 ml UNSCH PRN IV PUSH 06/12/17 16:00 (Glucagon Inj) 1 mg UNSCH PRN OTHER 06/12/17 16:00 (Coreg) 6.25 mg BID PO 06/12/17 21:00 06/18/17 20:49 (Plavix) 75 mg DAILY PO 06/13/17 09:00 06/18/17 09:10 (Nitrostat Sl) 0.4 mg Q5M PRN SL 06/12/17 16:00 06/13/17 20:35 (Tylenol) 650 mg Q6H PRN PO 06/12/17 16:00 06/18/17 20:50 (Xanax) 0.25 mg Q8H PRN PO 06/12/17 16:00 06/17/17 21:37 (Zofran Inj) 4 mg Q6H PRN IV PUSH 06/12/17 16:00 06/17/17 13:15 (Pepcid) 20 mg BID PO 06/12/17 21:00 06/18/17 20:49 (NS Flush) 2 ml UNSCH PRN IV FLUSH 06/12/17 16:00 (NS Flush) 2 ml BID IV FLUSH 06/12/17 21:00 06/18/17 20:49 (Tylenol) 650 mg Q4H PRN PO 06/12/17 16:00 (Reglan Inj) 5 mg Q6H PRN IV PUSH 06/12/17 16:00 (Restoril) 15 mg HS PRN PO 06/12/17 16:00 (Tylenol) 650 mg Q6H PRN PO 06/12/17 16:00 06/18/17 14:50 (Percocet 5-325 Mg) 1 tab Q6H PRN PO 06/12/17 16:00 06/13/17 12:03 (Percocet 10-325 Mg) 1 tab Q6H PRN PO 3/21/18 16:00 06/18/17 09:10 (Morphine Inj) 2 mg Q3H PRN IV PUSH 06/12/17 16:00 (Morphine Inj) 4 mg Q3H PRN IV PUSH 06/12/17 16:30 (Morphine Inj) 4 mg Q3H PRN IV PUSH 06/12/17 16:30 (Narcan Inj) 0.4 mg UNSCH PRN IV PUSH 06/12/17 16:00 (Zenaida-Colace) 1 tab BID PO 06/12/17 21:00 06/18/17 09:10 (Milk Of Magnesia Liq) 30 ml Q12H PRN PO 06/12/17 16:00 (Senokot) 17.2 mg Q12H PRN PO 06/12/17 16:00 (Dulcolax Supp) 10 mg DAILY PRN RECTAL 06/12/17 16:00 (Lactulose Liq) 30 ml DAILY PRN PO 06/12/17 16:00 Sodium Chloride 1,000 ml @ 30 mls/hr Q24H IV 06/13/17 13:10 (Lasix Inj) 20 mg BID@09,18 IV PUSH 06/14/17 18:00 06/18/17 17:01 (Lipitor) 40 mg HS PO 06/14/17 21:00 06/18/17 20:50 (Levemir Inj) 10 units HS SQ 06/14/17 21:00 06/18/17 21:00 (Prinivil) 5 mg DAILY PO 06/16/17 09:00 06/18/17 09:12 (Ecotrin Ec) 162 mg DAILY PO 06/16/17 09:00 06/18/17 09:11 (Aldactone) 50 mg DAILY PO 06/18/17 09:00 06/18/17 09:10 Vital Signs / I&O Vital Signs Date Time Temp Pulse Resp B/P (MAP) Pulse Ox O2 Delivery O2 Flow Rate FiO2 06/18/17 18:02 69 06/18/17 17:16 99 21 06/18/17 17:06 70 06/18/17 16:26 76 06/18/17 15:57 18 06/18/17 15:21 100 Room Air 06/18/17 15:21 97.9 66 18 130/83 (99) 100 06/18/17 15:21 67 06/18/17 14:15 77 06/18/17 13:02 79 06/18/17 12:22 76 06/18/17 11:24 97.6 62 18 127/77 (94) 100 06/18/17 11:24 68 06/18/17 11:24 100 Room Air 06/18/17 10:03 72 06/18/17 09:55 16 06/18/17 09:54 87 06/18/17 09:53 99 21 06/18/17 08:15 97.0 68 18 117/80 (92) 98 06/18/17 08:15 68 06/18/17 08:15 98 Room Air 06/18/17 06:00 65 06/18/17 05:00 74 06/18/17 04:00 68 06/18/17 03:30 98.0 72 16 117/80 (92) 99 06/18/17 03:00 68 06/18/17 02:00 70 06/18/17 01:00 71 06/18/17 00:00 63 I/O 06/18/17 06/18/17 06/18/17 06/19/17 06/19/17 06/19/17 07:00 15:00 23:00 07:00 15:00 23:00 Intake Total 240 ml 480 ml Output Total 1075 ml 1000 ml Balance -835 ml -520 ml Intake Oral 240 ml 480 ml Output Urine Total 1075 ml 1000 ml # Bowel Movements 0 0 Physical Exam GENERAL: SKIN: Warm and dry. HEAD: Normocephalic. EYES: No scleral icterus. No injection or drainage. NECK: Supple, trachea midline. No JVD or lymphadenopathy. CARDIOVASCULAR: Regular rate and rhythm without murmurs, gallops, or rubs. RESPIRATORY: Breath sounds equal bilaterally. No accessory muscle use. GASTROINTESTINAL: Abdomen soft, non-tender, nondistended. MUSCULOSKELETAL: No cyanosis, or edema. BACK: Nontender without obvious deformity. No CVA tenderness. Laboratory Laboratory Tests Test 06/18/17 06:23 06/18/17 06:25 Blood Urea Nitrogen 24 MG/DL Creatinine 1.09 MG/DL Random Glucose 245 MG/DL Calcium Level 9.5 MG/DL Sodium Level 135 MEQ/L Potassium Level 4.3 MEQ/L Chloride Level 101 MEQ/L Carbon Dioxide Level 27.0 MEQ/L Anion Gap 7 MEQ/L Estimat Glomerular Filtration Rate 69 ML/MIN White Blood Count 7.3 TH/MM3 Red Blood Count 6.16 MIL/MM3 Hemoglobin 15.9 GM/DL Hematocrit 48.3 % Mean Corpuscular Volume 78.5 FL Mean Corpuscular Hemoglobin 25.8 PG Mean Corpuscular Hemoglobin Concent 32.9 % Red Cell Distribution Width 15.2 % Platelet Count 205 TH/MM3 Mean Platelet Volume 8.8 FL B-Type Natriuretic Peptide 179 PG/ML Assessment and Plan Problem List: (1) Cardiomyopathy ICD Codes: I42.9 - Cardiomyopathy, unspecified (2) Mitral regurgitation ICD Codes: I34.0 - Nonrheumatic mitral (valve) insufficiency (3) Pulmonary HTN ICD Codes: I27.20 - Pulmonary hypertension, unspecified (4) CAD (coronary artery disease) ICD Codes: I25.10 - Atherosclerotic heart disease of [place] coronary artery without angina pectoris (5) Diabetes mellitus ICD Codes: E11.9 - Type 2 diabetes mellitus without complications (6) Multi-vessel coronary artery stenosis ICD Codes: I25.10 - Atherosclerotic heart disease of [place] coronary artery without angina pectoris (7) Unstable angina pectoris ICD Codes: I20.0 - Unstable angina Status: Acute (8) Decreased cardiac ejection fraction ICD Codes: R93.1 - Abnormal findings on diagnostic imaging of heart and coronary circulation Assessment and Plan 1.) Cardiomyopathy - bnp down to @100, euvolemic, dyspnea improved, f/u pulmonary consult, continue coreg, continue lasix 20 mg bid, aldactone 50mg bid , change enalapril to lisinopril 5 mg qd, decrease aspirin 162 mg qd, f/u bmp/ bnp in am, may be accepted for heart transplant eval at [facility] if can get medicare/medicaid, d/w Dr Sosa @ and case management, patient and his family extensively 2.) CAD - assymptomatic off iv hep, continue aspirin, plavix, Angina resolved with diuresis presumably due decrease wall tension from lower filling pressures Garrett Henao MD Jun 18, 2017 23:49
[2017-06-19] VITALS (26 sets, daily range): BP systolic 102–137; BP diastolic 68–90; PULSE 60–88; RESP 14–18; TEMP 97.6–98.1; O2SAT 96–100
[2017-06-19] MEDS: INSULIN ASPART SUPPLEMENTAL SCALE SQ SCH ×4 (08:00→22:58)
[2017-06-19] MEDS: SODIUM CHLORIDE 0.9% FLUSH 10 ML FLUSH IV FLUSH SCH ×2 (09:00→22:57)
[2017-06-19] MEDS: LISINOPRIL 5 MG TAB PO SCH (09:35)
[2017-06-19] MEDS: DOCUSATE SODIUM 50 MG/SENNA 8.6 MG TAB PO SCH ×2 (09:35→22:57)
[2017-06-19] MEDS: SPIRONOLACTONE 50 MG TAB PO SCH (09:36)
[2017-06-19] MEDS: ASPIRIN EC 81 MG TABEC PO SCH (09:36)
[2017-06-19] MEDS: FUROSEMIDE 20 MG/2 ML VIAL IV PUSH SCH ×2 (09:36→17:31)
[2017-06-19] MEDS: CARVEDILOL 6.25 MG TAB PO SCH ×2 (09:37→22:57)
[2017-06-19] MEDS: FAMOTIDINE 20 MG TAB PO SCH ×2 (09:37→22:57)
[2017-06-19] MEDS: CLOPIDOGREL 75 MG TAB PO SCH (09:37)
[2017-06-19] MEDS: ACETAMINOPHEN 325 MG TAB PO PRN (09:38)
[2017-06-19] MEDS: SODIUM CHLOR 0.9% 1000 ML INJ 1,000 ML IV SCH (13:10)
--- NOTE | 2017-06-19 13:22 | HHI.PR ---
Subjective Remarks Patient reports that he is feeling okay today. Mild shortness of breath but no chest pain. Objective Vitals Vital Signs Date Time Temp Pulse Resp B/P (MAP) Pulse Ox O2 Delivery O2 Flow Rate FiO2 06/19/17 12:00 64 06/19/17 11:00 84 06/19/17 10:00 76 06/19/17 09:00 74 06/19/17 08:20 98.0 72 18 124/79 (94) 100 06/19/17 08:00 60 06/19/17 07:32 100 Room Air 06/19/17 07:00 76 06/19/17 06:00 66 06/19/17 05:00 67 06/19/17 04:00 71 06/19/17 03:00 97.8 70 16 126/79 (95) 99 06/19/17 03:00 99 Room Air 06/19/17 03:00 70 06/19/17 02:00 61 06/19/17 01:00 68 06/19/17 00:00 98.1 67 16 102/68 (79) 98 06/19/17 00:00 60 06/19/17 00:00 98 Room Air 06/18/17 23:00 58 06/18/17 22:00 60 06/18/17 21:00 68 06/18/17 20:00 64 06/18/17 20:00 98.4 60 16 123/73 (90) 99 06/18/17 20:00 99 Room Air 06/18/17 19:00 84 06/18/17 18:02 69 06/18/17 17:16 99 21 06/18/17 17:06 70 06/18/17 16:26 76 06/18/17 15:57 18 06/18/17 15:21 100 Room Air 06/18/17 15:21 97.9 66 18 130/83 (99) 100 06/18/17 15:21 67 06/18/17 14:15 77 I/O 06/18/17 06/18/17 06/18/17 06/19/17 06/19/17 06/19/17 07:00 15:00 23:00 07:00 15:00 23:00 Intake Total 240 ml 480 ml 480 ml Output Total 1075 ml 1000 ml 775 ml Balance -835 ml -520 ml -295 ml Intake Oral 240 ml 480 ml 480 ml Output Urine Total 1075 ml 1000 ml 775 ml # Bowel Movements 0 0 0 Result Diagram: 06/18/1762406/18/17622 Objective Remarks GENERAL: This is a well-nourished, well-developed patient, in no apparent distress. CARDIOVASCULAR: Normal rate and regular rhythm without murmurs, gallops, or rubs. RESPIRATORY: Good respiratory efforts. Diminished breath sounds at the bases, otherwise clear to auscultation bilaterally. GASTROINTESTINAL: Abdomen soft, non-tender, non-distended. Normal active bowel sounds MUSCULOSKELETAL: Extremities without cyanosis, or edema. NEURO: Alert & Oriented x4 to person, place, time, situation. Moves all ext x4 PSYCH: Appropriate mood and affect. A/P Problem List: (1) Hx of CABG ICD Code: Z95.1 - Presence of aortocoronary bypass graft (2) Decreased cardiac ejection fraction ICD Code: R93.1 - Abnormal findings on diagnostic imaging of heart and coronary circulation (3) Hypertension ICD Code: I10 - Essential (primary) hypertension (4) Obese ICD Code: E66.9 - Obesity, unspecified (5) Hyperlipidemia ICD Code: E78.5 - Hyperlipidemia, unspecified (6) CAD (coronary artery disease) ICD Code: I25.10 - Atherosclerotic heart disease of [place] coronary artery without angina pectoris (7) Diabetes mellitus ICD Code: E11.9 - Type 2 diabetes mellitus without complications (8) Unstable angina pectoris ICD Code: I20.0 - Unstable angina Status: Acute (9) Multi-vessel coronary artery stenosis ICD Code: I25.10 - Atherosclerotic heart disease of [place] coronary artery without angina pectoris Assessment and Plan 57 year-old male with Multivessel coronary stenosis in patient with prior history of CABG/ Cardiomyopathy with EF of 20% Status post left heart catheterization 06/13/17 Appreciate input from cardiology. Optimize medical management. Discussed with Dr. Aguirre today. Records reviewed. ICD indicated for the patient. Plan for defibrillator placement tomorrow Continue with heparin drip, Plavix, aspirin, beta adan, statin, Aldactone , Lasix Diabetes mellitus continue on sliding scale coverage with Accu-Cheks before meals and at bedtime ;hold his Glucophage and metformin Hemoglobin A1c of 9.8 Continue Levemir 10 units at bedtime Hypertension Continue home medications COPD tobacco oxygen as needed -Appreciate pulmonology following. GERD Continue Pepcid Chronic back pain Continue pain meds as needed DVT and GI prophylaxis On heparin, stool softeners as needed. Discharge Planning Audrey No MD Jun 19, 2017 13:22
--- NOTE | 2017-06-19 14:45 | PD.CARD.PN ---
Subjective Subjective Remarks denies chest pain, on oxygen, off heparin, in nad, appears comfortable Objective Medications Current Medications Medications (Trade) Dose Ordered Sig/Erika Route Start Time Stop Time Status Last Admin (NovoLOG SUPPLEMENTAL SCALE) 1 ACHS SLIDING SCALE SQ 06/12/17 17:00 06/19/17 12:00 (D50w (Vial) Inj) 50 ml UNSCH PRN IV PUSH 06/12/17 16:00 (Glucagon Inj) 1 mg UNSCH PRN OTHER 06/12/17 16:00 (Coreg) 6.25 mg BID PO 06/12/17 21:00 06/19/17 09:37 (Plavix) 75 mg DAILY PO 06/13/17 09:00 06/19/17 09:37 (Nitrostat Sl) 0.4 mg Q5M PRN SL 06/12/17 16:00 06/13/17 20:35 (Tylenol) 650 mg Q6H PRN PO 06/12/17 16:00 06/19/17 09:38 (Xanax) 0.25 mg Q8H PRN PO 06/12/17 16:00 06/17/17 21:37 (Zofran Inj) 4 mg Q6H PRN IV PUSH 06/12/17 16:00 06/17/17 13:15 (Pepcid) 20 mg BID PO 06/12/17 21:00 06/19/17 09:37 (NS Flush) 2 ml UNSCH PRN IV FLUSH 06/12/17 16:00 (NS Flush) 2 ml BID IV FLUSH 06/12/17 21:00 06/19/17 09:00 (Tylenol) 650 mg Q4H PRN PO 06/12/17 16:00 (Reglan Inj) 5 mg Q6H PRN IV PUSH 06/12/17 16:00 (Restoril) 15 mg HS PRN PO 06/12/17 16:00 (Tylenol) 650 mg Q6H PRN PO 06/12/17 16:00 06/18/17 14:50 (Percocet 5-325 Mg) 1 tab Q6H PRN PO 06/12/17 16:00 06/13/17 12:03 (Percocet 10-325 Mg) 1 tab Q6H PRN PO 3/21/18 16:00 06/18/17 09:10 (Morphine Inj) 2 mg Q3H PRN IV PUSH 06/12/17 16:00 (Morphine Inj) 4 mg Q3H PRN IV PUSH 06/12/17 16:30 (Morphine Inj) 4 mg Q3H PRN IV PUSH 06/12/17 16:30 (Narcan Inj) 0.4 mg UNSCH PRN IV PUSH 06/12/17 16:00 (Zenaida-Colace) 1 tab BID PO 06/12/17 21:00 06/19/17 09:35 (Milk Of Magnesia Liq) 30 ml Q12H PRN PO 06/12/17 16:00 (Senokot) 17.2 mg Q12H PRN PO 06/12/17 16:00 (Dulcolax Supp) 10 mg DAILY PRN RECTAL 06/12/17 16:00 (Lactulose Liq) 30 ml DAILY PRN PO 06/12/17 16:00 Sodium Chloride 1,000 ml @ 30 mls/hr Q24H IV 06/13/17 13:10 (Lasix Inj) 20 mg BID@09,18 IV PUSH 06/14/17 18:00 06/19/17 09:36 (Lipitor) 40 mg HS PO 06/14/17 21:00 06/18/17 20:50 (Levemir Inj) 10 units HS SQ 06/14/17 21:00 06/18/17 21:00 (Prinivil) 5 mg DAILY PO 06/16/17 09:00 06/19/17 09:35 (Ecotrin Ec) 162 mg DAILY PO 06/16/17 09:00 06/19/17 09:36 (Aldactone) 50 mg DAILY PO 06/18/17 09:00 06/19/17 09:36 Vital Signs / I&O Vital Signs Date Time Temp Pulse Resp B/P (MAP) Pulse Ox O2 Delivery O2 Flow Rate FiO2 06/19/17 12:00 64 06/19/17 11:00 84 06/19/17 10:00 76 06/19/17 09:00 74 06/19/17 08:20 98.0 72 18 124/79 (94) 100 06/19/17 08:00 60 06/19/17 07:32 100 Room Air 06/19/17 07:00 76 06/19/17 06:00 66 06/19/17 05:00 67 06/19/17 04:00 71 06/19/17 03:00 97.8 70 16 126/79 (95) 99 06/19/17 03:00 99 Room Air 06/19/17 03:00 70 06/19/17 02:00 61 06/19/17 01:00 68 06/19/17 00:00 98.1 67 16 102/68 (79) 98 06/19/17 00:00 60 06/19/17 00:00 98 Room Air 06/18/17 23:00 58 06/18/17 22:00 60 06/18/17 21:00 68 06/18/17 20:00 64 06/18/17 20:00 98.4 60 16 123/73 (90) 99 06/18/17 20:00 99 Room Air 06/18/17 19:00 84 06/18/17 18:02 69 06/18/17 17:16 99 21 06/18/17 17:06 70 06/18/17 16:26 76 06/18/17 15:57 18 06/18/17 15:21 100 Room Air 06/18/17 15:21 97.9 66 18 130/83 (99) 100 06/18/17 15:21 67 I/O 06/18/17 06/18/17 06/18/17 06/19/17 06/19/17 06/19/17 07:00 15:00 23:00 07:00 15:00 23:00 Intake Total 240 ml 480 ml 480 ml Output Total 1075 ml 1000 ml 775 ml Balance -835 ml -520 ml -295 ml Intake Oral 240 ml 480 ml 480 ml Output Urine Total 1075 ml 1000 ml 775 ml # Bowel Movements 0 0 0 Physical Exam GENERAL: SKIN: Warm and dry. HEAD: Normocephalic. EYES: No scleral icterus. No injection or drainage. NECK: Supple, trachea midline. No JVD or lymphadenopathy. CARDIOVASCULAR: Regular rate and rhythm without murmurs, gallops, or rubs. RESPIRATORY: Breath sounds equal bilaterally. No accessory muscle use. GASTROINTESTINAL: Abdomen soft, non-tender, nondistended. MUSCULOSKELETAL: No cyanosis, or edema. BACK: Nontender without obvious deformity. No CVA tenderness. Assessment and Plan Problem List: (1) Cardiomyopathy ICD Codes: I42.9 - Cardiomyopathy, unspecified (2) Mitral regurgitation ICD Codes: I34.0 - Nonrheumatic mitral (valve) insufficiency (3) Pulmonary HTN ICD Codes: I27.20 - Pulmonary hypertension, unspecified (4) CAD (coronary artery disease) ICD Codes: I25.10 - Atherosclerotic heart disease of [place] coronary artery without angina pectoris (5) Diabetes mellitus ICD Codes: E11.9 - Type 2 diabetes mellitus without complications (6) Multi-vessel coronary artery stenosis ICD Codes: I25.10 - Atherosclerotic heart disease of [place] coronary artery without angina pectoris (7) Unstable angina pectoris ICD Codes: I20.0 - Unstable angina Status: Acute (8) Decreased cardiac ejection fraction ICD Codes: R93.1 - Abnormal findings on diagnostic imaging of heart and coronary circulation Assessment and Plan 1.) Cardiomyopathy - bnp down to @100, euvolemic, dyspnea improved, f/u pulmonary consult, continue coreg, continue lasix 20 mg bid, aldactone 50mg bid , change enalapril to lisinopril 5 mg qd, decrease aspirin 162 mg qd, f/u bmp/ bnp in am, may be accepted for heart transplant eval at [facility] if can get medicare/medicaid, d/w Dr Sosa @ and case management, patient and his family extensively; f/u bnp/bmp in am 2.) CAD - assymptomatic off iv hep, continue aspirin, plavix, Angina resolved with diuresis presumably due decrease wall tension from lower filling pressures Garrett Henao MD Jun 19, 2017 14:45
--- NOTE | 2017-06-19 17:58 | HHI.PR ---
Subjective Remarks Feeling better Objective Vital Signs Date Time Temp Pulse Resp B/P (MAP) Pulse Ox O2 Delivery O2 Flow Rate FiO2 06/19/17 15:00 97.8 69 16 137/71 (93) 98 06/19/17 15:00 98 Room Air 06/19/17 12:00 64 06/19/17 11:15 Room Air 06/19/17 11:15 97.6 74 16 123/90 (101) 96 06/19/17 11:00 84 06/19/17 10:00 76 06/19/17 09:00 74 06/19/17 08:20 98.0 72 18 124/79 (94) 100 06/19/17 08:00 60 06/19/17 07:32 100 Room Air 06/19/17 07:00 76 06/19/17 06:00 66 06/19/17 05:00 67 06/19/17 04:00 71 06/19/17 03:00 97.8 70 16 126/79 (95) 99 06/19/17 03:00 99 Room Air 06/19/17 03:00 70 06/19/17 02:00 61 06/19/17 01:00 68 06/19/17 00:00 98.1 67 16 102/68 (79) 98 06/19/17 00:00 60 06/19/17 00:00 98 Room Air 06/18/17 23:00 58 06/18/17 22:00 60 06/18/17 21:00 68 06/18/17 20:00 64 06/18/17 20:00 98.4 60 16 123/73 (90) 99 06/18/17 20:00 99 Room Air 06/18/17 19:00 84 06/18/17 18:02 69 I/O 06/18/17 06/18/17 06/18/17 06/19/17 06/19/17 06/19/17 07:00 15:00 23:00 07:00 15:00 23:00 Intake Total 240 ml 480 ml 480 ml Output Total 1075 ml 1000 ml 775 ml Balance -835 ml -520 ml -295 ml Intake Oral 240 ml 480 ml 480 ml Output Urine Total 1075 ml 1000 ml 775 ml # Bowel Movements 0 0 0 Result Diagram: 06/18/1725 3/27/18 0623 Imaging Alert, fully oriented, in bed, talking on the phone lungs: ventilated Heart: s1, S2 regular, no gallop Abdomen: soft, no mass Ext: no edema Last Impressions Chest X-Ray 06/12/17 1225 Signed Impressions: Service Date/Time: Monday, June 12, 2017 13:08 - CONCLUSION: No acute disease. No significant change has occurred. Evan Hampton MD Current Medications Medications (Trade) Dose Ordered Sig/Erika Route Start Time Stop Time Status Last Admin (NovoLOG SUPPLEMENTAL SCALE) 1 ACHS SLIDING SCALE SQ 06/12/17 17:00 06/19/17 12:00 (D50w (Vial) Inj) 50 ml UNSCH PRN IV PUSH 06/12/17 16:00 (Glucagon Inj) 1 mg UNSCH PRN OTHER 06/12/17 16:00 (Coreg) 6.25 mg BID PO 06/12/17 21:00 06/19/17 09:37 (Plavix) 75 mg DAILY PO 06/13/17 09:00 06/19/17 09:37 (Nitrostat Sl) 0.4 mg Q5M PRN SL 06/12/17 16:00 06/13/17 20:35 (Tylenol) 650 mg Q6H PRN PO 06/12/17 16:00 06/19/17 09:38 (Xanax) 0.25 mg Q8H PRN PO 06/12/17 16:00 06/17/17 21:37 (Zofran Inj) 4 mg Q6H PRN IV PUSH 06/12/17 16:00 06/17/17 13:15 (Pepcid) 20 mg BID PO 06/12/17 21:00 06/19/17 09:37 (NS Flush) 2 ml UNSCH PRN IV FLUSH 06/12/17 16:00 (NS Flush) 2 ml BID IV FLUSH 06/12/17 21:00 06/19/17 09:00 (Tylenol) 650 mg Q4H PRN PO 06/12/17 16:00 (Reglan Inj) 5 mg Q6H PRN IV PUSH 06/12/17 16:00 (Restoril) 15 mg HS PRN PO 06/12/17 16:00 (Tylenol) 650 mg Q6H PRN PO 06/12/17 16:00 06/18/17 14:50 (Percocet 5-325 Mg) 1 tab Q6H PRN PO 06/12/17 16:00 06/13/17 12:03 (Percocet 10-325 Mg) 1 tab Q6H PRN PO 06/12/17 16:00 06/18/17 09:10 (Morphine Inj) 2 mg Q3H PRN IV PUSH 06/12/17 16:00 (Morphine Inj) 4 mg Q3H PRN IV PUSH 06/12/17 16:30 (Morphine Inj) 4 mg Q3H PRN IV PUSH 06/12/17 16:30 (Narcan Inj) 0.4 mg UNSCH PRN IV PUSH 06/12/17 16:00 (Zenaida-Colace) 1 tab BID PO 06/12/17 21:00 06/19/17 09:35 (Milk Of Magnesia Liq) 30 ml Q12H PRN PO 06/12/17 16:00 (Senokot) 17.2 mg Q12H PRN PO 06/12/17 16:00 (Dulcolax Supp) 10 mg DAILY PRN RECTAL 06/12/17 16:00 (Lactulose Liq) 30 ml DAILY PRN PO 06/12/17 16:00 Sodium Chloride 1,000 ml @ 30 mls/hr Q24H IV 06/13/17 13:10 (Lasix Inj) 20 mg BID@09,18 IV PUSH 06/14/17 18:00 06/19/17 17:31 (Lipitor) 40 mg HS PO 06/14/17 21:00 06/18/17 20:50 (Levemir Inj) 10 units HS SQ 06/14/17 21:00 06/18/17 21:00 (Prinivil) 5 mg DAILY PO 06/16/17 09:00 06/19/17 09:35 (Ecotrin Ec) 162 mg DAILY PO 06/16/17 09:00 06/19/17 09:36 (Aldactone) 50 mg DAILY PO 06/18/17 09:00 06/19/17 09:36 Assessment and Plan Problem List: (1) Cardiomyopathy ICD Codes: I42.9 - Cardiomyopathy, unspecified Plan: CHF II-III EF 20% last report around 2-3 years ago fro [place] EF was 40% Subsequent <AR Severe ischemic cardiomyopathy This is a patient at high risks for sudden cardiac Hospital will not support defib vest. recent evidence supporting the use of defib vest is very thin Patient will need a defibrillator insertion for sudden primary prevention The risk, the nature and benefits discussed. patient understand and agree to proceed Procedure will be performed tomorrow AM (2) CAD (coronary artery disease) ICD Codes: I25.10 - Atherosclerotic heart disease of [place] coronary artery without angina pectoris Plan: Hx of CABG No chest pain (3) Hypertension ICD Codes: I10 - Essential (primary) hypertension Plan: SBP 134. Lisinopril will be DC Entresto will be initiated tomorrow night Tyesha Aguirre MD Jun 19, 2017 17:58
--- NOTE | 2017-06-19 21:35 | HHI.PR ---
Subjective Remarks 57 YOWM Wth CAD,CABG,CMP Breathing better On RA No SOB Objective Vital Signs Vital Signs Date Time Temp Pulse Resp B/P (MAP) Pulse Ox O2 Delivery O2 Flow Rate FiO2 06/19/17 20:38 98 06/19/17 18:00 68 06/19/17 16:00 78 06/19/17 15:00 97.8 69 16 137/71 (93) 98 06/19/17 15:00 88 06/19/17 15:00 98 Room Air 06/19/17 14:00 75 06/19/17 13:00 62 06/19/17 12:00 64 06/19/17 11:15 Room Air 06/19/17 11:15 97.6 74 16 123/90 (101) 96 06/19/17 11:00 84 06/19/17 10:00 76 06/19/17 09:00 74 06/19/17 08:20 98.0 72 18 124/79 (94) 100 06/19/17 08:00 60 06/19/17 07:32 100 Room Air 06/19/17 07:00 76 06/19/17 06:00 66 06/19/17 05:00 67 06/19/17 04:00 71 06/19/17 03:00 97.8 70 16 126/79 (95) 99 06/19/17 03:00 99 Room Air 06/19/17 03:00 70 06/19/17 02:00 61 06/19/17 01:00 68 06/19/17 00:00 98.1 67 16 102/68 (79) 98 06/19/17 00:00 60 06/19/17 00:00 98 Room Air 06/18/17 23:00 58 06/18/17 22:00 60 I/O 06/18/17 06/18/17 06/18/17 06/19/17 06/19/17 06/19/17 07:00 15:00 23:00 07:00 15:00 23:00 Intake Total 240 ml 480 ml 480 ml 580 ml Output Total 1075 ml 1000 ml 775 ml 900 ml Balance -835 ml -520 ml -295 ml -320 ml Intake Oral 240 ml 480 ml 480 ml 580 ml Output Urine Total 1075 ml 1000 ml 775 ml 900 ml # Bowel Movements 0 0 0 Result Diagram: 06/18/1725 06/18/17 0623 Objective Remarks GENERAL: WBWN WM, NAD SKIN: Warm and dry. HEAD: Normocephalic. EYES: No scleral icterus. No injection or drainage. NECK: Supple, trachea midline. No JVD or lymphadenopathy. CARDIOVASCULAR: Regular rate and rhythm without murmurs, gallops, or rubs. RESPIRATORY: Breath sounds equal bilaterally. No accessory muscle use. GASTROINTESTINAL: Abdomen soft, non-tender, nondistended. MUSCULOSKELETAL: No cyanosis, or edema. BACK: Nontender without obvious deformity. No CVA tenderness. A/P Assessment and Plan IMPRESSION: 1. Shortness of breath, likely from his cardiomyopathy; however, need to rule out underlying chronic obstructive pulmonary disease. He has a long history of smoking. 2. Coronary artery disease, status post coronary artery bypass grafting. 3. Hypertension. 4. History of nicotine use PLAN: PFT not interpretable Will rpt PFTBeing planned for AICD placement Stable on RA Chaparro Tong MD Jun 19, 2017 21:35
[2017-06-19] MEDS: ATORVASTATIN 40 MG TAB PO SCH (22:57)
[2017-06-19] MEDS: INSULIN DETEMIR 100 UNITS/ML VIAL SQ SCH (22:58)
[2017-06-20] VITALS (20 sets, daily range): BP systolic 118–142; BP diastolic 76–88; PULSE 65–84; RESP 16–20; TEMP 97.8–98.4; O2SAT 95–100
[2017-06-20] MEDS ORDERED: KETAMINE HCL 500 MG/5 ML VIAL ONE (07:00)
[2017-06-20] MEDS ORDERED: MIDAZOLAM HCL 2 MG/2 ML VIAL ONE (07:00)
[2017-06-20 07:04] LABS: BICARBONATE 26.9 MEQ/L (21.0-32.0); CALCIUM 9.2 MG/DL (8.5-10.1); CREATININE 1.12 MG/DL (0.60-1.30)
[2017-06-20] MEDS ORDERED: VANCOMYCIN 500 MG VIAL ONE (07:05)
[2017-06-20] MEDS ORDERED: LIDOCAINE HCL 2% 50 ML VIAL ONE ×2 (07:05→07:13)
[2017-06-20] MEDS ORDERED: VANCOMYCIN HCL 1000 MG VIAL ONE (07:05)
[2017-06-20] MEDS ORDERED: SODIUM CHLOR 0.9% 250 ML INJ 250 ML ONE (07:05)
[2017-06-20] MEDS ORDERED: ceFAZolin INJ 1,000 MG VIAL ONE ×2 (07:05→07:06)
[2017-06-20] MEDS ORDERED: FAMOTIDINE 20 MG/2 ML VIAL ONE (07:12)
[2017-06-20] MEDS ORDERED: diphenhydrAMINE HCL 50 MG/ML VIAL ONE (07:12)
[2017-06-20] MEDS ORDERED: methylPREDNISolone SOD SUCC 125 MG/2 ML VIAL ONE (07:12)
[2017-06-20] MEDS: INSULIN ASPART SUPPLEMENTAL SCALE SQ SCH ×4 (08:00→20:39)
[2017-06-20] MEDS ORDERED: ONDANSETRON HCL 4 MG/2 ML VIAL IV PUSH PRN (08:00)
[2017-06-20] MEDS ORDERED: SODIUM CHLORIDE 0.9% FLUSH 10 ML FLUSH IV FLUSH PRN (08:00)
[2017-06-20] MEDS ORDERED: ACETAMINOPHEN/CODEINE 300 MG/30 MG TAB PO PRN (08:00)
--- NOTE | 2017-06-20 08:31 | CATHPROC ---
OOTU HIS Report Study Information Study Number Admission Scheduled Start Study Start [id number] Jun 13 2017 2:16PM 06/20/2017 Jun 20 2017 7:17AM [facility] Cardiac Pacer/ICD Admit Source Facility Department Other [facility] - Office Machine Embossograph Operator Physician and Clinical Staff Initial Tyesha Martin Airplane Electrician Mignon Goff RN Airplane Electrician Jennie Hawthorne,BERT Other Anesthesia, BIOINFORMATICS SOFTWARE ENGINEER Recorder Richard LONG, Richard Wylie,RT(R) Procedures Performed Procedure Lead Insertion Equipment Time Filter Bed Placer Description Size Mfg Part Number Used/Scraped 07:55 [facility] MEDICAL PACER SAFE SHEATH, FR7, 13CM FR 7 [id number] Used 07:51 Needle Sponge Count 10 10 Used 07:51 Needle Sponge Count 2 22 Used 07:52 Needle Sponge Count 20 200 Used 07:51 Needle Sponge Count 3 3 Used DEFIBRILLATOR, FORTIFY 07:43 [employer] VVEVVVIRV [id number] Used ASSURA VR LEAD, DURATA ACTIVE FIXATION 07:47 [employer] 65CM 7122Q-65 Used 7122Q/65 Equipment Model, Serial, Lot Number and Expiration Data Description Model Number Serial Number Lot Number Expiration Date DEFIBRILLATOR, FORTIFY ASSURA [id number] 06-22-2017 VR LEAD, DURATA ACTIVE FIXATION 7122q-65 [id number] 04-24-2018 7122Q/65 Labs Hgb (g/dl) WBC (l/cumm) 11.60-17.00 4.00-11.00 15.9 7.3 Medication Medication Total Dose (Bolus/Oral) Medication Total Dosage/Unit 2% XYLOCAINE 20 mL Medications (Bolus/Oral) Medication Time Given Dosage/Unit Administered By Reason 2% XYLOCAINE 06/20/2017 7:34:17 AM 20 mL Tyesha Aguirre 20 mL 2% XYLOCAINE given by Tyesha Aguirre in Left shoulder via Subcutaneous. Medication (Drip) Medication Time Given Dosage/Unit Concentration/Unit Diluent (ml) Solution ANCEF 06/20/2017 7:13:00 AM 2 g 2 g ANCEF given by Anesthesia, BIOINFORMATICS SOFTWARE ENGINEER via Peripheral IV. VANCOMYCIN DRIP 06/20/2017 7:13:00 AM 1 g 1 g VANCOMYCIN DRIP given by Anesthesia, BIOINFORMATICS SOFTWARE ENGINEER via Peripheral IV. Chronological Log Time Study Chronological Log 6:55:19 Patient arrived via Bed. 6:56:28 Patient Name, D.O.B, / Armband Verified By R.N. 6:56:34 Anesthesia at bedside. Assumes care of patient. 6:57:30 Consent signed by the physician and the patient and verified by the Office Machine Embossograph Operator staff. 6:57:32 Pre-op and post- op instructions given; patient acknowledges understanding of instructions . 6:57:37 Patient has been NPO for More than 6Hrs. 7:04:49 Ralph Prominences Protected 7:05:46 Disposable Defibrillator Pads Placed On Patient. 7:13:00 2 g ANCEF given by Anesthesia, BIOINFORMATICS SOFTWARE ENGINEER via Peripheral IV. 7:13:00 1 g VANCOMYCIN DRIP given by Anesthesia, BIOINFORMATICS SOFTWARE ENGINEER via Peripheral IV. 7:17:40 Skin Breakdown- open 1x1cm wound noted right middle back 7:17:42 A # 20 IV was noted in the Antecubital (right). Grade = 0 7:17:53 A # 20 IV was noted in the Antecubital (left). Grade = 0 7:17:57 History and physical on the chart or being dictated. 7:18:01 Table restraints applied according to hospital policy 7:18:03 Left Upper Chest Prepped Times Two. 7:19:36 MD paged First Sponge And Instrument Count Done by Charlie Ramos RN. 7:29:35 Hypo's:3 hypo's, Sponges: 20sponges, Bovie/scratch:1 bovie/1 scratch Sutures: 10, Blades:1, Instruments: 26 7:31:28 MD arrived. Time Out. Correct patient, procedure, procedure equipment, site and side verified with physici an present. Time 7:34:06 concurred by MD, individual staff and BIOINFORMATICS SOFTWARE ENGINEER. Time Out #2 - Consents verified, patient in correct position, all results are labled and displ ayed, safety precautions 7:34:12 taken, antibiotics administered. Time out concurred by MD, individual staff and BIOINFORMATICS SOFTWARE ENGINEER in proced ure 7:34:15 Case Start 7:34:17 20 mL 2% XYLOCAINE given by Tyesha Aguirre in Left shoulder via Subcutaneous. 7:35:15 Vascular access was obtained in the Subclav. Vein (Lft. 7:36:55 A pocket was created at the L Upper Chest. 7:37:29 A SAFE SHEATH, FR7, 13CM FR 7 was advanced into the Subclav. Vein (Lft using the Percutane ous technique. 7:42:25 A LEAD, DURATA ACTIVE FIXATION 7122Q/65 65CM was inserted and positioned in the RV. 7:43:00 Lead placement verified under fluoroscopy 7:43:24 The RV lead impedance and threshold being tested. 7:44:32 The RV lead was sutured to the fascia. 7:44:54 A DEFIBRILLATOR, FORTIFY ASSURA VR VVEVVVIRV was connected and placed in the pocket. 7:45:47 Pocket flushed with antibiotic solution Second Sponge And Instrument Count Done by Charlie Ramos RN. 7:47:10 Hypo's: 3, Sponges: 20, Bovie/scratch: 2 Sutures: 10, Blades: 1, Instruments: 26, Syveck Patches: ~SYVECK PATCH~ confirmed with D Ethan 7:52:25 The pocket was closed. Final Sponge And Instrument Count Done by Charlie Ramos RN. 7:59:32 Hypo's: 3, Sponges: 20, Bovie/scratch: 2 Sutures: 10, Blades: 1, Instruments: 26, Syveck Patches: ~SYVECK PATCH~ confirmed with D Ethan 7:59:48 Implant Procedure was performed. 8:00:03 A ICD Implant . (Single) 8:00:57 Bedside Report will be given. 8:01:00 Case End 8:03:00 For medications and vitals refer to anesthesia time sheet End Study - Contrast Media Used In Study Contrast Total Opened (mL) Total Used (mL) Total Wasted (mL) Unspecified 0 0 0 End Study - Radiation Exposure Fluoro Time (minutes) 0.1 End Study - Patient Disposition Complications Transferred To No Telemetry Bed
[2017-06-20] MEDS ORDERED: FUROSEMIDE 20 MG TAB PO SCH (09:00)
[2017-06-20] MEDS: SODIUM CHLORIDE 0.9% FLUSH 10 ML FLUSH IV FLUSH SCH ×4 (09:00→20:40)
--- NOTE | 2017-06-20 09:24 | RADRPT ---
EXAM DATE/TIME: 06/20/2017 08:37 [place] COMPARISON: CHEST PA & LAT, June 12, 2017, 13:08. CHEST SINGLE AP, May 29, 2017, 18:05. INDICATIONS : Evaluate for pneumothorax status post pacemaker placement. MEDICAL HISTORY : Diabetes mellitus type II. SURGICAL HISTORY : CABG. ENCOUNTER: Initial ACUITY: 1 day PAIN SCORE: 7/10 LOCATION: Left chest FINDINGS: A single view of the chest demonstrates the lungs to be symmetrically aerated without evidence of mas s, infiltrate or effusion. The cardiomediastinal contours are unremarkable and stable. There is evid ence of previous cardiothoracic surgery. Osseous structures are intact. There is a left pacemaker in place. There is no pneumothorax. CONCLUSION: 1. Status post placement of a left pacemaker. 2. No pneumothorax. Evan Hampton MD on June 20, 2017 at 9:22 Board Certified Radiologist. This report was verified electronically.
[2017-06-20] MEDS: CARVEDILOL 6.25 MG TAB PO SCH ×2 (10:18→20:39)
[2017-06-20] MEDS: FAMOTIDINE 20 MG TAB PO SCH ×2 (10:19→20:39)
[2017-06-20] MEDS: ASPIRIN EC 81 MG TABEC PO SCH (10:19)
[2017-06-20] MEDS: SPIRONOLACTONE 50 MG TAB PO SCH (10:19)
[2017-06-20] MEDS: DOCUSATE SODIUM 50 MG/SENNA 8.6 MG TAB PO SCH ×2 (10:19→20:39)
[2017-06-20] MEDS: CLOPIDOGREL 75 MG TAB PO SCH (10:20)
[2017-06-20] MEDS ORDERED: SODIUM CHLORIDE 0.9% 10 ML VIAL IV ONE (12:00)
[2017-06-20] MEDS ORDERED: PROPOFOL 200 MG/20 ML AMP IV ONE (12:00)
[2017-06-20] MEDS ORDERED: LIDOCAINE HCL 1% PF 5 ML SYRINGE OTHER ONE (12:00)
[2017-06-20] MEDS: SODIUM CHLOR 0.9% 1000 ML INJ 1,000 ML IV SCH (13:10)
[2017-06-20] MEDS: ACETAMINOPHEN/CODEINE 300 MG/30 MG TAB PO PRN ×2 (14:38→19:35)
--- NOTE | 2017-06-20 14:53 | PD.CARD ---
SINGLE CHAMBER DEFIB IMPLANT PROCEDURE DATE: Jun 20, 2017 NYHA Classification: Class II (Mild) Prevention: Primary Single Chamber Defib Implant PROCEDURE: Single chamber defibrillator implantation . INDICATIONS: Mr. Estrada is a 57 -year-old male with hx of CAD, CABG, previous EF around 2 years ago was 40%, subsequent NE, recent EF 20%, high risks for SCD, not a candidate for revascularization with congestive heart failure, ejection fraction [], coronary artery disease, to undergo defibrillator implantation for sudden prevention. The risks, the nature and the benefit of the procedure are clearly stated to him . Risks include pneumothorax, cardiac perforation, stroke and even . He understood and agreed to proceed. PROCEDURE: After written, informed consent was obtained, the patient was brought to the EP Lab where he was prepped and draped in the sterile fashion. Conscious sedation was initiated and maintained throughout the procedure by anesthesiologist. Once sedation was verified, the left infraclavicular area was anesthetized with 2% Xylocaine. Using modified Seldinger technique, the left subclavian vein was cannulated on one occasion and one guide wire was advanced. Then, using #11 blade scalpel, a 3-cm incision was made two fingerbreadths below left clavicle. This incision was then taken down to the deep fascial layer using Bovie cautery and blunt dissection. Into the inferomedial direction, a device pocket was dissected, then the wire was dissected into the pocket. A 2-0 Vicryl suture was placed around the wires to prevent bleeding. At this point, over the wire, the 7- [place] dilator and introducer was advanced. As dilator and wire were removed, an active fixation right ventricular pacing, sensing and defibrillatory lead was advanced. After adequate pacing and sensing thresholds were obtained, the lead was secured in the pocket with #2 Ethibond suture. At that point, the pocket was copiously irrigated with antibiotic solution. The leads were connected to the generator and placed into the pocket. I did proceed with wound closure. The deep fascial layer was approximated with 2-0 Vicryl suture in a continuous fashion. The subcutaneous layer was approximated with 2-0 Vicryl suture in a continuous fashion. The subcuticular layer was approximated with 2-0 Vicryl suture in a continuous fashion. Dermabond adhesive was applied to the wound, followed by a sterile pressure dressing. There was no complication. The patient tolerated procedure. Blood loss minimal. 1. Implanted Hardware: The implanted defibrillator generator is a [employer], model number [id number], serial number [id number]. The right ventricular pacing, sensing and defibrillatory lead is a [employer] model number 7122Q-65, serial number [id number]. 2. Thresholds: The right ventricular pacing threshold in the bipolar mode was 0.5 volts at 0.4 milliseconds, lead impedance 840 ohms and R-wave at 12.0 mV. 3. Settings: The device set in VVI 40 defibrillatory portion for two zones, one zone for ventricular tachycardia between 170 and 250 beats per minute. Initial therapy consists of one burst of ATP, one ramp, 81%, 10 pulse, 10 millisecond decremental, followed by 20, then 30 and all subsequent shocks at 40 joules defibrillatory shock, the second zone for ventricular fibrillation above 250 beats per minute, first therapy at 30 and all subsequent shocks at 40 joules defibrillatory shock. CONCLUSIONS: Successful defibrillator implantation. COMMENT AND RECOMMENDATIONS: The patient will be transferred to the telemetry unit, will be observed and when stable can be discharged home. Tyesha Aguirre MD Jun 20, 2017 14:53
--- NOTE | 2017-06-20 15:37 | HHI.PR ---
Subjective Remarks Patient underwent AICD placement today. He reports the left arm is very painful. He has not been out of bed yet. Objective Vitals Vital Signs Date Time Temp Pulse Resp B/P (MAP) Pulse Ox O2 Delivery O2 Flow Rate FiO2 06/20/17 09:44 95 21 06/20/17 06:00 68 06/20/17 05:00 65 06/20/17 04:00 79 06/20/17 03:00 97.9 81 18 118/76 (90) 99 06/20/17 03:00 97 Room Air 06/20/17 03:00 81 06/20/17 02:00 74 06/20/17 01:00 74 06/20/17 00:00 78 06/19/17 23:00 97 Room Air 06/19/17 23:00 98.0 65 16 127/78 (94) 97 06/19/17 23:00 77 06/19/17 22:00 65 06/19/17 21:00 79 06/19/17 20:38 98 06/19/17 20:00 81 06/19/17 20:00 97.6 70 14 133/83 (100) 97 06/19/17 20:00 97 Room Air 06/19/17 19:00 82 06/19/17 18:00 68 06/19/17 16:00 78 I/O 06/19/17 06/19/17 06/19/17 06/20/17 06/20/17 06/20/17 07:00 15:00 23:00 07:00 15:00 23:00 Intake Total 480 ml 580 ml 240 ml Output Total 775 ml 900 ml 500 ml Balance -295 ml -320 ml -260 ml Intake Oral 480 ml 580 ml 240 ml Output Urine Total 775 ml 900 ml 500 ml # Bowel Movements 0 Result Diagram: 06/18/17 0625 06/20/17 0558 Objective Remarks GENERAL: This is a well-nourished, well-developed patient, in no apparent distress. CARDIOVASCULAR: Normal rate and regular rhythm without murmurs, gallops, or rubs. RESPIRATORY: Good respiratory efforts. Diminished breath sounds at the bases, otherwise clear to auscultation bilaterally. GASTROINTESTINAL: Abdomen soft, non-tender, non-distended. Normal active bowel sounds MUSCULOSKELETAL: Left arm in a sling. Extremities without cyanosis, or edema. NEURO: Alert & Oriented x4 to person, place, time, situation. Moves all ext x4 PSYCH: Appropriate mood and affect. A/P Problem List: (1) Hx of CABG ICD Code: Z95.1 - Presence of aortocoronary bypass graft (2) Decreased cardiac ejection fraction ICD Code: R93.1 - Abnormal findings on diagnostic imaging of heart and coronary circulation (3) Hypertension ICD Code: I10 - Essential (primary) hypertension (4) Obese ICD Code: E66.9 - Obesity, unspecified (5) Hyperlipidemia ICD Code: E78.5 - Hyperlipidemia, unspecified (6) CAD (coronary artery disease) ICD Code: I25.10 - Atherosclerotic heart disease of [place] coronary artery without angina pectoris (7) Diabetes mellitus ICD Code: E11.9 - Type 2 diabetes mellitus without complications (8) Unstable angina pectoris ICD Code: I20.0 - Unstable angina Status: Acute (9) Multi-vessel coronary artery stenosis ICD Code: I25.10 - Atherosclerotic heart disease of [place] coronary artery without angina pectoris Assessment and Plan 57 year-old male with Multivessel coronary stenosis in patient with prior history of CABG/ Cardiomyopathy with EF of 20% Status post left heart catheterization 06/13/17 Appreciate input from cardiology. Optimize medical management. Continue with heparin drip, Plavix, aspirin, beta adan, statin, Aldactone , Lasix Discussed with Dr. Aguirre today. Status post AICD placement. Plan for discharge tomorrow. Diabetes mellitus continue on sliding scale coverage with Accu-Cheks before meals and at bedtime ;hold his Glucophage and metformin Hemoglobin A1c of 9.8 Continue Levemir 10 units at bedtime Hypertension Continue home medications COPD tobacco oxygen as needed -Appreciate pulmonology following. GERD Continue Pepcid Chronic back pain Continue pain meds as needed DVT and GI prophylaxis On heparin, stool softeners as needed. Discharge Planning Plan for discharge tomorrow. Case management consult to assist the patient with medications. Audrey No MD Jun 20, 2017 15:37
[2017-06-20] MEDS ORDERED: PRAV40TA2 PO (15:41)
[2017-06-20] MEDS ORDERED: ALDA50TA2 PO (15:41)
[2017-06-20] MEDS ORDERED: ECASA81 PO (15:41)
[2017-06-20] MEDS ORDERED: CARV6.252 PO (15:41)
[2017-06-20] MEDS ORDERED: CLOP75TA PO (15:41)
[2017-06-20] MEDS ORDERED: FAMO20TA2 PO (15:41)
[2017-06-20] MEDS ORDERED: SACU1TAB7 PO (15:41)
--- NOTE | 2017-06-20 19:00 | PD.CARD.PN ---
Subjective Subjective Remarks denies chest pain, on oxygen, off heparin, in nad, appears comfortable, s/p icd Objective Medications Current Medications Medications (Trade) Dose Ordered Sig/Erika Route Start Time Stop Time Status Last Admin (NovoLOG SUPPLEMENTAL SCALE) 1 ACHS SLIDING SCALE SQ 06/12/17 17:00 06/20/17 12:00 (D50w (Vial) Inj) 50 ml UNSCH PRN IV PUSH 06/12/17 16:00 (Glucagon Inj) 1 mg UNSCH PRN OTHER 06/12/17 16:00 (Coreg) 6.25 mg BID PO 06/12/17 21:00 06/20/17 10:18 (Plavix) 75 mg DAILY PO 06/13/17 09:00 06/20/17 10:20 (Nitrostat Sl) 0.4 mg Q5M PRN SL 06/12/17 16:00 06/13/17 20:35 (Tylenol) 650 mg Q6H PRN PO 06/12/17 16:00 06/19/17 09:38 (Xanax) 0.25 mg Q8H PRN PO 06/12/17 16:00 06/17/17 21:37 (Zofran Inj) 4 mg Q6H PRN IV PUSH 06/12/17 16:00 06/17/17 13:15 (Pepcid) 20 mg BID PO 06/12/17 21:00 06/20/17 10:19 (NS Flush) 2 ml UNSCH PRN IV FLUSH 06/12/17 16:00 (NS Flush) 2 ml BID IV FLUSH 06/12/17 21:00 06/20/17 09:00 (Tylenol) 650 mg Q4H PRN PO 06/12/17 16:00 (Reglan Inj) 5 mg Q6H PRN IV PUSH 06/12/17 16:00 (Restoril) 15 mg HS PRN PO 06/12/17 16:00 (Tylenol) 650 mg Q6H PRN PO 06/12/17 16:00 06/18/17 14:50 (Percocet 5-325 Mg) 1 tab Q6H PRN PO 06/12/17 16:00 06/13/17 12:03 (Percocet 10-325 Mg) 1 tab Q6H PRN PO 06/12/17 16:00 06/18/17 09:10 (Morphine Inj) 2 mg Q3H PRN IV PUSH 06/12/17 16:00 (Morphine Inj) 4 mg Q3H PRN IV PUSH 06/12/17 16:30 (Morphine Inj) 4 mg Q3H PRN IV PUSH 06/12/17 16:30 (Narcan Inj) 0.4 mg UNSCH PRN IV PUSH 06/12/17 16:00 (Zenaida-Colace) 1 tab BID PO 06/12/17 21:00 06/20/17 10:19 (Milk Of Magnesia Liq) 30 ml Q12H PRN PO 06/12/17 16:00 (Senokot) 17.2 mg Q12H PRN PO 06/12/17 16:00 (Dulcolax Supp) 10 mg DAILY PRN RECTAL 06/12/17 16:00 (Lactulose Liq) 30 ml DAILY PRN PO 06/12/17 16:00 Sodium Chloride 1,000 ml @ 30 mls/hr Q24H IV 06/13/17 13:10 (Lipitor) 40 mg HS PO 06/14/17 21:00 06/19/17 22:57 (Levemir Inj) 10 units HS SQ 06/14/17 21:00 06/19/17 22:58 (Ecotrin Ec) 162 mg DAILY PO 06/16/17 09:00 06/20/17 10:19 (Aldactone) 50 mg DAILY PO 06/18/17 09:00 06/20/17 10:19 (Entresto 49-51 Mg) 1 tab BID PO 06/20/17 21:00 Cefazolin Sodium 2000 mg/Sodium Chloride 100 ml @ 100 mls/hr Q8H IV 06/20/17 08:00 06/21/17 00:59 06/20/17 16:00 (Zofran Inj) 4 mg Q4H PRN IV PUSH 06/20/17 08:00 (Tylenol-Codeine #3) 1 tab Q4H PRN PO 06/20/17 08:00 06/20/17 14:38 (Tylenol-Codeine #3) 2 tab Q4H PRN PO 06/20/17 08:00 06/20/17 10:17 (NS Flush) 2 ml BID IV FLUSH 06/20/17 09:00 06/20/17 09:00 (NS Flush) 2 ml UNSCH PRN IV FLUSH 06/20/17 08:00 Vital Signs / I&O Vital Signs Date Time Temp Pulse Resp B/P (MAP) Pulse Ox O2 Delivery O2 Flow Rate FiO2 06/20/17 09:44 95 21 06/20/17 06:00 68 06/20/17 05:00 65 06/20/17 04:00 79 06/20/17 03:00 97.9 81 18 118/76 (90) 99 06/20/17 03:00 97 Room Air 06/20/17 03:00 81 06/20/17 02:00 74 06/20/17 01:00 74 06/20/17 00:00 78 06/19/17 23:00 97 Room Air 06/19/17 23:00 98.0 65 16 127/78 (94) 97 06/19/17 23:00 77 06/19/17 22:00 65 06/19/17 21:00 79 06/19/17 20:38 98 06/19/17 20:00 81 06/19/17 20:00 97.6 70 14 133/83 (100) 97 06/19/17 20:00 97 Room Air 06/19/17 19:00 82 I/O 06/19/17 06/19/17 06/19/17 06/20/17 06/20/17 06/20/17 07:00 15:00 23:00 07:00 15:00 23:00 Intake Total 480 ml 580 ml 240 ml Output Total 775 ml 900 ml 500 ml Balance -295 ml -320 ml -260 ml Intake Oral 480 ml 580 ml 240 ml Output Urine Total 775 ml 900 ml 500 ml # Bowel Movements 0 Physical Exam GENERAL: SKIN: Warm and dry. HEAD: Normocephalic. EYES: No scleral icterus. No injection or drainage. NECK: Supple, trachea midline. No JVD or lymphadenopathy. CARDIOVASCULAR: Regular rate and rhythm without murmurs, gallops, or rubs. RESPIRATORY: Breath sounds equal bilaterally. No accessory muscle use. GASTROINTESTINAL: Abdomen soft, non-tender, nondistended. MUSCULOSKELETAL: No cyanosis, or edema. BACK: Nontender without obvious deformity. No CVA tenderness. Laboratory Laboratory Tests Test 06/20/17 05:58 Blood Urea Nitrogen 28 MG/DL Creatinine 1.12 MG/DL Random Glucose 234 MG/DL Calcium Level 9.2 MG/DL Sodium Level 135 MEQ/L Potassium Level 4.0 MEQ/L Chloride Level 100 MEQ/L Carbon Dioxide Level 26.9 MEQ/L Anion Gap 8 MEQ/L Estimat Glomerular Filtration Rate 67 ML/MIN B-Type Natriuretic Peptide 160 PG/ML Imaging Last 24 hours Impressions Chest X-Ray 06/20/17 0000 Signed Impressions: Service Date/Time: May 08:37 - CONCLUSION: 1. Status post placement of a left pacemaker. 2. No pneumothorax. Evan Hampton MD Assessment and Plan Problem List: (1) Cardiomyopathy ICD Codes: I42.9 - Cardiomyopathy, unspecified (2) Mitral regurgitation ICD Codes: I34.0 - Nonrheumatic mitral (valve) insufficiency (3) Pulmonary HTN ICD Codes: I27.20 - Pulmonary hypertension, unspecified (4) CAD (coronary artery disease) ICD Codes: I25.10 - Atherosclerotic heart disease of [place] coronary artery without angina pectoris (5) Diabetes mellitus ICD Codes: E11.9 - Type 2 diabetes mellitus without complications (6) Multi-vessel coronary artery stenosis ICD Codes: I25.10 - Atherosclerotic heart disease of [place] coronary artery without angina pectoris (7) Unstable angina pectoris ICD Codes: I20.0 - Unstable angina Status: Acute (8) Decreased cardiac ejection fraction ICD Codes: R93.1 - Abnormal findings on diagnostic imaging of heart and coronary circulation Assessment and Plan 1.) Cardiomyopathy - bnp down to @100, euvolemic, dyspnea improved, f/u pulmonary consult, continue coreg, continue lasix 20 mg bid, aldactone 50mg bid , change enalapril to lisinopril 5 mg qd, decrease aspirin 162 mg qd, f/u bmp/ bnp in am, may be accepted for heart transplant eval at [facility] if can get medicare/medicaid, d/w Dr Sosa @ and case management, patient and his family extensively; s/p icd by Dr Aguirre today 2.) CAD - assymptomatic off iv hep, continue aspirin, plavix, Angina resolved with diuresis presumably due decrease wall tension from lower filling pressures Garrett Henao MD Jun 20, 2017 19:00
--- NOTE | 2017-06-20 20:10 | HHI.PR ---
Subjective Remarks 57 YOWM Wth CAD,CABG,CMP Breathing better On RA No SOB Had defib placed mild shoulder pain Objective Vital Signs Vital Signs Date Time Temp Pulse Resp B/P (MAP) Pulse Ox O2 Delivery O2 Flow Rate FiO2 06/20/17 18:00 70 06/20/17 17:00 68 06/20/17 16:00 71 06/20/17 15:15 Room Air 06/20/17 15:00 70 06/20/17 15:00 98.4 70 16 131/88 (102) 100 06/20/17 14:00 68 06/20/17 13:00 72 06/20/17 11:15 Room Air 06/20/17 11:00 70 06/20/17 10:00 84 06/20/17 09:44 95 21 06/20/17 09:00 68 06/20/17 08:30 Room Air 06/20/17 07:00 68 06/20/17 06:00 68 06/20/17 05:00 65 06/20/17 04:00 79 06/20/17 03:00 97.9 81 18 118/76 (90) 99 06/20/17 03:00 97 Room Air 06/20/17 03:00 81 06/20/17 02:00 74 06/20/17 01:00 74 06/20/17 00:00 78 06/19/17 23:00 97 Room Air 06/19/17 23:00 98.0 65 16 127/78 (94) 97 06/19/17 23:00 77 06/19/17 22:00 65 06/19/17 21:00 79 06/19/17 20:38 98 I/O 06/19/17 06/19/17 06/19/17 06/20/17 06/20/17 06/20/17 07:00 15:00 23:00 07:00 15:00 23:00 Intake Total 480 ml 580 ml 240 ml 750 ml Output Total 775 ml 900 ml 500 ml 1600 ml Balance -295 ml -320 ml -260 ml -850 ml Intake Oral 480 ml 580 ml 240 ml 750 ml Output Urine Total 775 ml 900 ml 500 ml 1600 ml # Bowel Movements 0 Result Diagram: 06/18/17 0625 06/20/17 0558 Objective Remarks GENERAL: WBWN WM, NAD SKIN: Warm and dry. HEAD: Normocephalic. EYES: No scleral icterus. No injection or drainage. NECK: Supple, trachea midline. No JVD or lymphadenopathy. CARDIOVASCULAR: Regular rate and rhythm without murmurs, gallops, or rubs. RESPIRATORY: Breath sounds equal bilaterally. No accessory muscle use. GASTROINTESTINAL: Abdomen soft, non-tender, nondistended. MUSCULOSKELETAL: No cyanosis, or edema. BACK: Nontender without obvious deformity. No CVA tenderness. A/P Assessment and Plan IMPRESSION: 1. Shortness of breath, likely from his cardiomyopathy; however, need to rule out underlying chronic obstructive pulmonary disease. He has a long history of smoking. 2. Coronary artery disease, status post coronary artery bypass grafting. 3. Hypertension. 4. History of nicotine use PLAN: PFT not interpretable Stable on RA Chaparro Tong MD Jun 20, 2017 20:10
[2017-06-20] MEDS: ATORVASTATIN 40 MG TAB PO SCH (20:39)
[2017-06-20] MEDS: SACUBITRIL/VALSARTAN 49 MG-51 MG TAB PO SCH (20:39)
[2017-06-20] MEDS: INSULIN DETEMIR 100 UNITS/ML VIAL SQ SCH (20:40)
[2017-06-21] VITALS (9 sets, daily range): BP systolic 115–117; BP diastolic 74–83; PULSE 62–76; RESP 18–20; TEMP 97.7–98.6; O2SAT 95–96
[2017-06-21] MEDS: ACETAMINOPHEN/CODEINE 300 MG/30 MG TAB PO PRN ×2 (01:11→08:25)
[2017-06-21 07:25] LABS: HEMATOCRIT 47.8 % (39.0-51.0); MEAN CELL VOLUME 78.1 FL (80.0-100.0); MEAN CORPUSCULAR HEMOGLOBIN 26.1 PG (27.0-34.0); MEAN CORPUSCULAR HGB CONC 33.4 % (32.0-36.0); MEAN PLATELET VOLUME 8.9 FL (7.0-11.0); PLATELET COUNT 211 TH/MM3 (150-450); RED BLOOD COUNT 6.12 MIL/MM3 (4.50-5.90); RED CELL DISTRIBUTION WIDTH 15.5 % (11.6-17.2); WHITE BLOOD COUNT 9.1 TH/MM3 (4.0-11.0)
[2017-06-21] MEDS: INSULIN ASPART SUPPLEMENTAL SCALE SQ SCH (08:00)
[2017-06-21] MEDS: SODIUM CHLORIDE 0.9% FLUSH 10 ML FLUSH IV FLUSH SCH ×2 (08:23)
[2017-06-21] MEDS: SPIRONOLACTONE 50 MG TAB PO SCH (08:23)
[2017-06-21] MEDS: FAMOTIDINE 20 MG TAB PO SCH (08:24)
[2017-06-21] MEDS: ASPIRIN EC 81 MG TABEC PO SCH (08:24)
[2017-06-21] MEDS: CARVEDILOL 6.25 MG TAB PO SCH (08:24)
[2017-06-21] MEDS: SACUBITRIL/VALSARTAN 49 MG-51 MG TAB PO SCH (08:24)
[2017-06-21] MEDS: DOCUSATE SODIUM 50 MG/SENNA 8.6 MG TAB PO SCH (08:24)
[2017-06-21] MEDS: CLOPIDOGREL 75 MG TAB PO SCH (08:24)
--- NOTE | 2017-06-21 08:27 | PD.CARD.PN ---
Subjective Subjective Remarks Feels okay Objective Medications Current Medications Medications (Trade) Dose Ordered Sig/Erika Route Start Time Stop Time Status Last Admin (NovoLOG SUPPLEMENTAL SCALE) 1 ACHS SLIDING SCALE SQ 06/12/17 17:00 06/20/17 20:39 (D50w (Vial) Inj) 50 ml UNSCH PRN IV PUSH 06/12/17 16:00 (Glucagon Inj) 1 mg UNSCH PRN OTHER 06/12/17 16:00 (Coreg) 6.25 mg BID PO 06/12/17 21:00 06/20/17 20:39 (Plavix) 75 mg DAILY PO 06/13/17 09:00 06/20/17 10:20 (Nitrostat Sl) 0.4 mg Q5M PRN SL 06/12/17 16:00 06/13/17 20:35 (Tylenol) 650 mg Q6H PRN PO 06/12/17 16:00 06/19/17 09:38 (Xanax) 0.25 mg Q8H PRN PO 06/12/17 16:00 06/17/17 21:37 (Zofran Inj) 4 mg Q6H PRN IV PUSH 06/12/17 16:00 06/17/17 13:15 (Pepcid) 20 mg BID PO 06/12/17 21:00 06/20/17 20:39 (NS Flush) 2 ml UNSCH PRN IV FLUSH 06/12/17 16:00 (NS Flush) 2 ml BID IV FLUSH 06/12/17 21:00 06/20/17 20:39 (Tylenol) 650 mg Q4H PRN PO 06/12/17 16:00 (Reglan Inj) 5 mg Q6H PRN IV PUSH 06/12/17 16:00 (Restoril) 15 mg HS PRN PO 06/12/17 16:00 (Tylenol) 650 mg Q6H PRN PO 06/12/17 16:00 06/18/17 14:50 (Percocet 5-325 Mg) 1 tab Q6H PRN PO 06/12/17 16:00 06/13/17 12:03 (Percocet 10-325 Mg) 1 tab Q6H PRN PO 06/12/17 16:00 06/18/17 09:10 (Morphine Inj) 2 mg Q3H PRN IV PUSH 06/12/17 16:00 (Morphine Inj) 4 mg Q3H PRN IV PUSH 06/12/17 16:30 (Morphine Inj) 4 mg Q3H PRN IV PUSH 06/12/17 16:30 (Narcan Inj) 0.4 mg UNSCH PRN IV PUSH 06/12/17 16:00 (Zenaida-Colace) 1 tab BID PO 06/12/17 21:00 06/20/17 20:39 (Milk Of Magnesia Liq) 30 ml Q12H PRN PO 06/12/17 16:00 (Senokot) 17.2 mg Q12H PRN PO 06/12/17 16:00 (Dulcolax Supp) 10 mg DAILY PRN RECTAL 06/12/17 16:00 (Lactulose Liq) 30 ml DAILY PRN PO 06/12/17 16:00 Sodium Chloride 1,000 ml @ 30 mls/hr Q24H IV 06/13/17 13:10 (Lipitor) 40 mg HS PO 06/14/17 21:00 06/20/17 20:39 (Levemir Inj) 10 units HS SQ 06/14/17 21:00 06/20/17 20:40 (Ecotrin Ec) 162 mg DAILY PO 06/16/17 09:00 06/20/17 10:19 (Aldactone) 50 mg DAILY PO 06/18/17 09:00 06/20/17 10:19 (Entresto 49-51 Mg) 1 tab BID PO 06/20/17 21:00 06/20/17 20:39 (Zofran Inj) 4 mg Q4H PRN IV PUSH 06/20/17 08:00 (Tylenol-Codeine #3) 1 tab Q4H PRN PO 06/20/17 08:00 06/21/17 01:11 (Tylenol-Codeine #3) 2 tab Q4H PRN PO 06/20/17 08:00 06/20/17 10:17 (NS Flush) 2 ml BID IV FLUSH 06/20/17 09:00 06/20/17 09:00 (NS Flush) 2 ml UNSCH PRN IV FLUSH 06/20/17 08:00 Vital Signs / I&O Vital Signs Date Time Temp Pulse Resp B/P (MAP) Pulse Ox O2 Delivery O2 Flow Rate FiO2 06/21/17 04:08 75 06/21/17 04:00 97.9 74 20 115/83 (94) 96 06/21/17 00:07 74 06/21/17 00:00 97.7 76 18 117/78 (91) 95 06/20/17 20:00 97.8 81 20 142/81 (101) 96 06/20/17 19:51 75 06/20/17 18:00 70 06/20/17 17:00 68 06/20/17 16:00 71 06/20/17 15:15 Room Air 06/20/17 15:00 70 06/20/17 15:00 98.4 70 16 131/88 (102) 100 06/20/17 14:00 68 06/20/17 13:00 72 06/20/17 11:15 Room Air 06/20/17 11:00 70 06/20/17 10:00 84 06/20/17 09:44 95 21 06/20/17 09:00 68 06/20/17 08:30 Room Air I/O 06/20/17 06/20/17 06/20/17 06/21/17 06/21/17 06/21/17 07:00 15:00 23:00 07:00 15:00 23:00 Intake Total 240 ml 750 ml Output Total 500 ml 1600 ml 700 ml Balance -260 ml -850 ml -700 ml Intake Oral 240 ml 750 ml Output Urine Total 500 ml 1600 ml 700 ml Physical Exam GENERAL: Well-nourished, well-developed patient. SKIN: Warm and dry. Left chest wall incision well approximated without bruising or bleeding. HEAD: Normocephalic. EYES: No scleral icterus. No injection or drainage. NECK: Supple, trachea midline. No JVD or lymphadenopathy. CARDIOVASCULAR: Regular rate and rhythm without murmurs, gallops, or rubs. RESPIRATORY: Breath sounds equal bilaterally. No accessory muscle use. GASTROINTESTINAL: Abdomen soft, non-tender, nondistended. EXTREMITIES: No cyanosis, or edema. NEUROLOGICAL: Awake, alert, and oriented x 3. Non-focal. Laboratory Laboratory Tests Test 06/21/17 06:01 White Blood Count 9.1 TH/MM3 Red Blood Count 6.12 MIL/MM3 Hemoglobin 16.0 GM/DL Hematocrit 47.8 % Mean Corpuscular Volume 78.1 FL Mean Corpuscular Hemoglobin 26.1 PG Mean Corpuscular Hemoglobin Concent 33.4 % Red Cell Distribution Width 15.5 % Platelet Count 211 TH/MM3 Mean Platelet Volume 8.9 FL Assessment and Plan Problem List: (1) Cardiomyopathy ICD Codes: I42.9 - Cardiomyopathy, unspecified Plan: Stable for discharge from EP standpoint when cleared by managing team. Follow-up with Dr. Aguirre in 2 weeks per my discussion with him. Trista Pisano Jun 21, 2017 08:27
[2017-06-21] MEDS ORDERED: CEPH500C PO (08:32)
[2017-06-21] MEDS ORDERED: CEPHALEXIN MONOHYDRATE 500 MG CAP PO SCH (09:00)
--- NOTE | 2017-06-21 11:40 | EKG ---
Date Performed: 06/21/2017 Time Performed: 05:09:26 PTAGE: 57 years EKG: Sinus rhythm Left ventricular hypertrophy Lateral ST-T changes may be due to hypertrophy and/or ischemia Abnormal ECG PREVIOUS TRACING : 06/14/2017 07.05 Since the previous tracing, no significant change noted DOCTOR: Sukhdeep Rosales Interpretating Date/Time 06/21/2017 11:34:17
--- NOTE | 2017-06-21 12:23 | PD.CARD.PN ---
Subjective Subjective Remarks denies chest pain, on oxygen, off heparin, in nad, appears comfortable, s/p icd Objective Medications Current Medications Medications (Trade) Dose Ordered Sig/Erika Route Start Time Stop Time Status Last Admin (NovoLOG SUPPLEMENTAL SCALE) 1 ACHS SLIDING SCALE SQ 06/12/17 17:00 06/21/17 08:00 (D50w (Vial) Inj) 50 ml UNSCH PRN IV PUSH 06/12/17 16:00 (Glucagon Inj) 1 mg UNSCH PRN OTHER 06/12/17 16:00 (Coreg) 6.25 mg BID PO 06/12/17 21:00 06/21/17 08:24 (Plavix) 75 mg DAILY PO 06/13/17 09:00 06/21/17 08:24 (Nitrostat Sl) 0.4 mg Q5M PRN SL 06/12/17 16:00 06/13/17 20:35 (Tylenol) 650 mg Q6H PRN PO 06/12/17 16:00 06/19/17 09:38 (Xanax) 0.25 mg Q8H PRN PO 06/12/17 16:00 06/17/17 21:37 (Zofran Inj) 4 mg Q6H PRN IV PUSH 06/12/17 16:00 06/17/17 13:15 (Pepcid) 20 mg BID PO 06/12/17 21:00 06/21/17 08:24 (NS Flush) 2 ml UNSCH PRN IV FLUSH 06/12/17 16:00 (NS Flush) 2 ml BID IV FLUSH 06/12/17 21:00 06/21/17 08:23 (Tylenol) 650 mg Q4H PRN PO 06/12/17 16:00 (Reglan Inj) 5 mg Q6H PRN IV PUSH 06/12/17 16:00 (Restoril) 15 mg HS PRN PO 06/12/17 16:00 (Tylenol) 650 mg Q6H PRN PO 06/12/17 16:00 06/18/17 14:50 (Percocet 5-325 Mg) 1 tab Q6H PRN PO 06/12/17 16:00 06/13/17 12:03 (Percocet 10-325 Mg) 1 tab Q6H PRN PO 06/12/17 16:00 06/18/17 09:10 (Morphine Inj) 2 mg Q3H PRN IV PUSH 06/12/17 16:00 (Morphine Inj) 4 mg Q3H PRN IV PUSH 06/12/17 16:30 (Morphine Inj) 4 mg Q3H PRN IV PUSH 06/12/17 16:30 (Narcan Inj) 0.4 mg UNSCH PRN IV PUSH 06/12/17 16:00 (Zenaida-Colace) 1 tab BID PO 06/12/17 21:00 06/21/17 08:24 (Milk Of Magnesia Liq) 30 ml Q12H PRN PO 06/12/17 16:00 (Senokot) 17.2 mg Q12H PRN PO 06/12/17 16:00 (Dulcolax Supp) 10 mg DAILY PRN RECTAL 06/12/17 16:00 (Lactulose Liq) 30 ml DAILY PRN PO 06/12/17 16:00 Sodium Chloride 1,000 ml @ 30 mls/hr Q24H IV 06/13/17 13:10 (Lipitor) 40 mg HS PO 06/14/17 21:00 06/20/17 20:39 (Levemir Inj) 10 units HS SQ 06/14/17 21:00 06/20/17 20:40 (Ecotrin Ec) 162 mg DAILY PO 06/16/17 09:00 06/21/17 08:24 (Aldactone) 50 mg DAILY PO 06/18/17 09:00 06/21/17 08:23 (Entresto 49-51 Mg) 1 tab BID PO 06/20/17 21:00 06/21/17 08:24 (Zofran Inj) 4 mg Q4H PRN IV PUSH 06/20/17 08:00 (Tylenol-Codeine #3) 1 tab Q4H PRN PO 06/20/17 08:00 06/21/17 08:25 (Tylenol-Codeine #3) 2 tab Q4H PRN PO 06/20/17 08:00 06/20/17 10:17 (NS Flush) 2 ml BID IV FLUSH 06/20/17 09:00 06/20/17 09:00 (NS Flush) 2 ml UNSCH PRN IV FLUSH 06/20/17 08:00 (Keflex) 500 mg Q8H PO 06/21/17 09:00 06/23/17 08:59 Vital Signs / I&O Vital Signs Date Time Temp Pulse Resp B/P (MAP) Pulse Ox O2 Delivery O2 Flow Rate FiO2 06/21/17 08:00 70 06/21/17 08:00 98.6 74 18 117/74 (88) 96 06/21/17 08:00 96 Room Air 06/21/17 04:08 75 06/21/17 04:00 97.9 74 20 115/83 (94) 96 06/21/17 00:07 74 06/21/17 00:00 97.7 76 18 117/78 (91) 95 06/20/17 20:00 97.8 81 20 142/81 (101) 96 06/20/17 19:51 75 06/20/17 18:00 70 06/20/17 17:00 68 06/20/17 16:00 71 06/20/17 15:15 Room Air 06/20/17 15:00 70 06/20/17 15:00 98.4 70 16 131/88 (102) 100 06/20/17 14:00 68 06/20/17 13:00 72 I/O 06/20/17 06/20/17 06/20/17 06/21/17 06/21/17 06/21/17 07:00 15:00 23:00 07:00 15:00 23:00 Intake Total 240 ml 750 ml Output Total 500 ml 1600 ml 700 ml Balance -260 ml -850 ml -700 ml Intake Oral 240 ml 750 ml Output Urine Total 500 ml 1600 ml 700 ml Physical Exam GENERAL: SKIN: Warm and dry. HEAD: Normocephalic. EYES: No scleral icterus. No injection or drainage. NECK: Supple, trachea midline. No JVD or lymphadenopathy. CARDIOVASCULAR: Regular rate and rhythm without murmurs, gallops, or rubs. RESPIRATORY: Breath sounds equal bilaterally. No accessory muscle use. GASTROINTESTINAL: Abdomen soft, non-tender, nondistended. MUSCULOSKELETAL: No cyanosis, or edema. BACK: Nontender without obvious deformity. No CVA tenderness. Laboratory Laboratory Tests Test 06/21/17 06:01 White Blood Count 9.1 TH/MM3 Red Blood Count 6.12 MIL/MM3 Hemoglobin 16.0 GM/DL Hematocrit 47.8 % Mean Corpuscular Volume 78.1 FL Mean Corpuscular Hemoglobin 26.1 PG Mean Corpuscular Hemoglobin Concent 33.4 % Red Cell Distribution Width 15.5 % Platelet Count 211 TH/MM3 Mean Platelet Volume 8.9 FL Assessment and Plan Problem List: (1) Cardiomyopathy ICD Codes: I42.9 - Cardiomyopathy, unspecified Assessment and Plan 1.) Cardiomyopathy - bnp down to @100, euvolemic, dyspnea improved, f/u pulmonary consult, continue coreg, continue lasix 20 mg bid, aldactone 50mg bid , change enalapril to lisinopril 5 mg qd, decrease aspirin 162 mg qd, f/u bmp/ bnp in am, may be accepted for heart transplant eval at [facility] if can get medicare/medicaid, d/w Dr Sosa @ and case management, patient and his family extensively; s/p icd by Dr Aguirre 06/20/17 2.) CAD - assymptomatic off iv hep, continue aspirin, plavix, Angina resolved with diuresis presumably due decrease wall tension from lower filling pressures 3.) ok to dc from cv standpoint, f/u with me 06/24/17 Garrett Henao MD Jun 21, 2017 12:23
--- NOTE | 2017-06-21 14:18 | HHI.DS ---
Discharge Summary Admission Date Jun 13, 2017 at 14:16 Admitting Diagnosis unstable angina, EF of 19%, chest pain (1) Hx of CABG ICD Code: Z95.1 - Presence of aortocoronary bypass graft (2) Decreased cardiac ejection fraction ICD Code: R93.1 - Abnormal findings on diagnostic imaging of heart and coronary circulation (3) Hypertension ICD Code: I10 - Essential (primary) hypertension (4) Obese ICD Code: E66.9 - Obesity, unspecified (5) Hyperlipidemia ICD Code: E78.5 - Hyperlipidemia, unspecified (6) CAD (coronary artery disease) ICD Code: I25.10 - Atherosclerotic heart disease of [place] coronary artery without angina pectoris (7) Diabetes mellitus ICD Code: E11.9 - Type 2 diabetes mellitus without complications (8) Unstable angina pectoris ICD Code: I20.0 - Unstable angina Status: Acute (9) Multi-vessel coronary artery stenosis ICD Code: I25.10 - Atherosclerotic heart disease of [place] coronary artery without angina pectoris Brief History - From Admission Patient is a 57-year-old male presenting to the emergency department for evaluation of left-sided chest pain worse when trying to raise his left arm. As well as shortness of breath. Patient has had this on and off for the past 2-3 weeks. Patient was followed with Dr. Henao of cardiology that test that showed a significant ejection fraction reduction from 40% down to 19%. Dr. Henao wants the patient to be placed on heparin and to be followed for cardiac catheterization tomorrow. Symptoms have not improved been feeling very weak and tired as well as short of breath with any movement has no numbness and tingling in left arm is improved but still some chest discomfort and pressure- like something sitting on his chest chest pain is 6 out of 10 taken aspirin today has history of high blood pressure and cholesterol does take Plavix Will be placed in observation will put on heparin drip and Dr. Henao will take for cardiac catheterization tomorrow CBC/BMP: 06/21/17 0601 06/20/17 0558 Significant Findings Laboratory Tests Test 06/20/17 05:58 06/21/17 06:01 Blood Urea Nitrogen 28 MG/DL (7-18) Random Glucose 234 MG/DL (74-106) Sodium Level 135 MEQ/L (136-145) Estimat Glomerular Filtration Rate 67 ML/MIN (>89) B-Type Natriuretic Peptide 160 PG/ML (0-100) Red Blood Count 6.12 MIL/MM3 (4.50-5.90) Mean Corpuscular Volume 78.1 FL (80.0-100.0) Mean Corpuscular Hemoglobin 26.1 PG (27.0-34.0) PE at Discharge GENERAL: This is a well-nourished, well-developed patient, in no apparent distress. CARDIOVASCULAR: Normal rate and regular rhythm without murmurs, gallops, or rubs. RESPIRATORY: Good respiratory efforts. Diminished breath sounds at the bases, otherwise clear to auscultation bilaterally. GASTROINTESTINAL: Abdomen soft, non-tender, non-distended. Normal active bowel sounds MUSCULOSKELETAL: Left arm in a sling. Extremities without cyanosis, or edema. NEURO: Alert & Oriented x4 to person, place, time, situation. Moves all ext x4 PSYCH: Appropriate mood and affect. Pt Condition on Discharge: Good Discharge Disposition: Discharge Home Discharge Instructions DIET: Follow Instructions for: Heart Healthy Diet Activities you can perform: Regular-No Restrictions Audrey No MD Jun 21, 2017 14:18
--- NOTE | 2017-06-25 10:01 | RSPPFT ---
DATE OF PROCEDURE: 06/17/17 COMMENTS: Spirometry shows FVC of 3.6 at 77% of predicted. FEV1 of 2.2 at 60%. FEV1/FVC ratio is decreased. Flow is decreased at FEF 25, FEF 50, FEF 75 and FEF 25-75. There is no response after bronchodilator treatment. Flow volume loop indicates an obstructive pattern. IMPRESSION: 1. Moderately severe obstructive lung disease. 2. No response after bronchodilator treatment.
== END 2017-06-21 14:40 | disposition home or self-care (01) | DRG 225 ==
LOC: NEDAMB 11:50 → NEDA 15:43 → INTOOBSV 15:43 → NEDA 19:37 → NEDH 21:43 → HCIS 06-13 08:35 → OBSVTOIN 06-13 14:16
PROVIDERS: ADMIT Family Medicine; ATTEND Family Medicine
PROC: 4A023N8 Measurement of Cardiac Sampling and Pressure, Bilateral, Percutaneous Approach (ICD-10-PCS; 2017-06-13)
PROC: B2151ZZ Fluoroscopy of Left Heart using Low Osmolar Contrast (ICD-10-PCS; 2017-06-13)
PROC: B2111ZZ Fluoroscopy of Multiple Coronary Arteries using Low Osmolar Contrast (ICD-10-PCS; 2017-06-13)
PROC: B2181ZZ Fluoroscopy of Left Internal Mammary Bypass Graft using Low Osmolar Contrast (ICD-10-PCS; 2017-06-13)
PROC: 02HK3KZ Insertion of Defibrillator Lead into Right Ventricle, Percutaneous Approach (ICD-10-PCS; 2017-06-20)
PROC: 0JH608Z Insertion of Defibrillator Generator into Chest Subcutaneous Tissue and Fascia, Open Approach (ICD-10-PCS; principal; 2017-06-20 07:15)
DX: I25.110 Atherosclerotic heart disease of native coronary artery with unstable angina pectoris (principal); I11.0 Hypertensive heart disease with heart failure; I50.9 Heart failure, unspecified; I27.20 Pulmonary hypertension, unspecified; E11.65 Type 2 diabetes mellitus with hyperglycemia; E66.9 Obesity, unspecified; E78.5 Hyperlipidemia, unspecified; G89.29 Other chronic pain; M54.9 Dorsalgia, unspecified; I25.5 Ischemic cardiomyopathy; I34.0 Nonrheumatic mitral (valve) insufficiency; J44.9 Chronic obstructive pulmonary disease, unspecified; K21.9 Gastro-esophageal reflux disease without esophagitis; R11.0 Nausea; I25.2 Old myocardial infarction; Z91.041 Radiographic dye allergy status; Z87.891 Personal history of nicotine dependence; Z79.84 Long term (current) use of oral hypoglycemic drugs; Z95.1 Presence of aortocoronary bypass graft; Z79.02 Long term (current) use of antithrombotics/antiplatelets; Z79.82 Long term (current) use of aspirin
CPT/HCPCS: 33249; 71045; 71046; 80048; 80053; 80061; 82550; 82552; 82810; 82948; 83036; 83520; 83690; 83735; 83880; 84100; 84181; 84439; 84443; 84484; 85002; 85025; 85027; 85610; 85730; 93005; 93306; 93460; 94060; C1722; C1769; C1777; C1893; J0690; J1200; J1644; J1815; J1940; J2250; J2405; J2930; J3010; J3370; J7050; Q9967

== ENCOUNTER 2017-08-15 09:42 | Inpatient (IN) | payer OTHER ==
[2017-08-15] VITALS (12 sets, daily range): BP systolic 89–137; BP diastolic 58–89; PULSE 85–110; RESP 16–28; TEMP 97.8–98.1; O2SAT 96–100
[~2017-08-15] VITALS: Ht 180.3 cm; Wt 84.9 kg
[~2017-08-15 09:42] MED LIST changes: +ALDA50TA2 PO; +CEPH500C PO; +ECASA81 PO; -ENAL2.5T PO; +FAMO20TA2 PO; +SACU1TAB7 PO
--- NOTE | 2017-08-15 10:02 | PD ---
HPI Chief Complaint: Respiratory Distress Time Seen by Provider: 09:55 Travel History International Travel<30 days: No Contact w/Intl Traveler<30days: No Traveled to known affect area: No History of Present Illness HPI This is a 57-year-old male with a history of congestive heart failure and diabetes who presents to the emergency department with 4 days of increased difficulty breathing, constant, severe, worse with exertion, improved with rest. He feels like he cannot catch his breath. He denies any chest pain, but he said he felt a little clammy over the weekend. He has been having some vomiting at home. He has been having significant color changes in his right second toe from red to purple and he thinks there is an infection there. He was recently hospitalized in late May and had an AICD placed by Dr. Aguirre. [facility] Past Medical History Hx Anticoagulant Therapy: Yes (PLAVIX) Heart Rhythm Problems: Yes Cancer: No Cardiac Catheterization: Yes Cardiovascular Problems: Yes ([place], TRIPLE BYPASS, DEFIBRILLATOR) High Cholesterol: Yes Chest Pain: Yes Congestive Heart Failure: Yes Coronary Artery Disease: Yes Diabetes: Yes Patient Takes Glucophage: Yes Diminished Hearing: No Endocrine: Yes Gastrointestinal Disorders: Yes Genitourinary: No Hypertension: Yes Immune Disorder: No Musculoskeletal: Yes Neurologic: No Psychiatric: No Reproductive: No Respiratory: Yes Immunizations Current: Yes Myocardial Infarction: Yes (05/2012) Ulcer: Yes Tetanus Vaccination: Unknown Influenza Vaccination: No ?: Not Past Surgical History Appendectomy: Yes Cardiac Surgery: Yes (CABG X3) Coronary Artery Bypass Graft: Yes Other Surgery: Yes (CABG, APPENDECTOMY, SKIN GRAFTS TO RIGHT FOOT A CHILD, BACK SURGERY X 3) Family History Family Myocardial Infarction: Yes Social History Alcohol Use: Yes (SOCIALLY) Tobacco Use: No (QUIT 3 YEARS AGO) Substance Use: No Allergies-Medications (Allergen,Severity, Reaction): Coded Allergies: iodine (Unverified Allergy, Severe, Swelling, 06/12/17) potassium iodide (Unverified Allergy, Severe, Swelling, 06/12/17) povidone-iodine (Unverified Allergy, Severe, Swelling, 06/12/17) shellfish derived (Unverified Allergy, Severe, 06/12/17) sodium iodide (Unverified Allergy, Severe, Swelling, 06/12/17) sodium iodide (Unverified Allergy, Severe, Swelling, 06/12/17) Reported Meds & Prescriptions Reported Meds & Active Scripts Active Cephalexin 500 Mg Cap 500 Mg PO Q8HR Famotidine 20 Mg Tab 20 Mg PO BID Aspirin DR (Aspirin) 81 Mg Tabdr 162 Mg PO DAILY Aldactone (Spironolactone) 50 Mg Tab 50 Mg PO DAILY Entresto (Sacubitril-Valsartan) 49-51 Mg Tab 1 Tab PO BID Carvedilol 6.25 Mg Tab 6.25 Mg PO BID Pravastatin 40 Mg Tab 40 Mg PO DAILY Clopidogrel (Clopidogrel Bisulfate) 75 Mg Tab 75 Mg PO DAILY Reported Glucophage (Metformin HCl) 850 Mg Tab 850 Mg PO TIDPC Glyburide 2.5 Mg Tab 2.5 Mg PO BID Take with meals at the same time each day Review of Systems Except as stated in HPI: all other systems reviewed are Neg Physical Exam Narrative GENERAL: Anxious and uncomfortable appearing SKIN: Purple discoloration of the right second toe, cool and poorly perfused with some streaking and erythema of the right dorsal foot HEAD: Atraumatic. Normocephalic. EYES: Pupils equal and round. No injection or drainage. ENT: Moist mucous membranes NECK: Trachea midline. CARDIOVASCULAR: Tachycardic, no murmurs appreciated RESPIRATORY: Rales in the bilateral lung bases, tachypneic GASTROINTESTINAL: Abdomen soft, non-tender, nondistended. MUSCULOSKELETAL: No obvious deformities. NEUROLOGICAL: Awake and alert. No obvious cranial nerve deficits. Moving all extremities. PSYCHIATRIC: Appropriate mood and affect; insight and judgment normal. Data Data Last Documented VS Vital Signs Date Time Temp Pulse Resp B/P (MAP) Pulse Ox O2 Delivery O2 Flow Rate FiO2 08/15/17 12:00 103 26 131/80 (97) 97 Nasal Cannula 2.00 08/15/17 09:54 97.8 Orders Orders Complete Blood Count With Diff (08/15/17 09:55) Comprehensive Metabolic Panel (08/15/17 09:55) B-Type Natriuretic Peptide (08/15/17 09:55) Act Partial Throm Time (Ptt) (08/15/17 09:55) Prothrombin Time / Inr (Pt) (08/15/17 09:55) Troponin I (08/15/17 09:55) Iv Access Insert/Monitor (08/15/17 09:55) Electrocardiogram (08/15/17 09:55) Ecg Monitoring (08/15/17 09:55) Oximetry (08/15/17 09:55) Oxygen Administration (08/15/17 09:55) Chest, Single Ap (08/15/17 09:55) Sodium Chloride 0.9% Flush (Ns Flush) (08/15/17 10:00) Blood Culture (08/15/17 09:55) Lactic Acid (08/15/17 09:55) Westergren Sedimentation Rate (08/15/17 09:55) C-Reactive Protein (Crp) (08/15/17 09:55) Toe (Min 2vws) (08/15/17 ) Piperacil-Tazo 3.375 Gm Premix (Zosyn 3. (08/15/17 11:30) Vancomycin Inj (Vancomycin Inj) (08/15/17 11:30) Aspirin Chew (Aspirin Chew) (08/15/17 11:30) Heparin Inj (Heparin Inj) (08/15/17 11:45) Heparin-D5w 25,000 U/250 Ml (Heparin-D5w (08/15/17 11:45) Act Partial Throm Time (Ptt) (08/15/17 11:43) Cbc No Diff, Includes Plts (08/15/17 11:43) Cbc No Diff, Includes Plts (08/18/17 06:00) Act Partial Throm Time (Ptt) (08/15/17 18:43) Occult Blood (Hemoccult) Stool (08/15/17 11:43) Consult Podiatry (08/15/17 ) Consult Cardiology (08/15/17 ) Mri Foot W&W/O Contrast (08/15/17 ) (Hub Use Only)Inp Phy Cons/Ref (08/15/17 ) Admit Order (Ed Use Only) (08/15/17 13:02) Labs Laboratory Tests Test 08/15/17 10:00 08/15/17 10:05 White Blood Count 9.6 TH/MM3 Red Blood Count 5.37 MIL/MM3 Hemoglobin 15.0 GM/DL Hematocrit 43.9 % Mean Corpuscular Volume 81.8 FL Mean Corpuscular Hemoglobin 27.9 PG Mean Corpuscular Hemoglobin Concent 34.1 % Red Cell Distribution Width 17.1 % Platelet Count 133 TH/MM3 Mean Platelet Volume 9.1 FL Neutrophils (%) (Auto) 91.7 % Lymphocytes (%) (Auto) 2.8 % Monocytes (%) (Auto) 5.4 % Eosinophils (%) (Auto) 0.0 % Basophils (%) (Auto) 0.1 % Neutrophils # (Auto) 8.8 TH/MM3 Lymphocytes # (Auto) 0.3 TH/MM3 Monocytes # (Auto) 0.5 TH/MM3 Eosinophils # (Auto) 0.0 TH/MM3 Basophils # (Auto) 0.0 TH/MM3 CBC Comment AUTO DIFF Differential Total Cells Counted 100 Neutrophils % (Manual) 73 % Band Neutrophils % 19 % Lymphocytes % 2 % Monocytes % 4 % Neutrophils # (Manual) 9.0 TH/MM3 Metamyelocytes 1 % Myelocytes 1 % Differential Comment FINAL DIFF MANUAL Dohle Bodies PRESENT Platelet Estimate LOW Platelet Morphology Comment NORMAL Ovalocytes 1+ Erythrocyte Sedimentation Rate 41 mm/hr Prothrombin Time 13.4 SEC Prothromb Time International Ratio 1.3 RATIO Activated Partial Thromboplast Time 27.3 SEC Blood Urea Nitrogen 36 MG/DL Creatinine 1.84 MG/DL Random Glucose 407 MG/DL Total Protein 7.4 GM/DL Albumin 3.0 GM/DL Calcium Level 8.8 MG/DL Alkaline Phosphatase 114 U/L Aspartate Amino Transf (AST/SGOT) 37 U/L Alanine Aminotransferase (ALT/SGPT) 25 U/L Total Bilirubin 0.9 MG/DL Sodium Level 130 MEQ/L Potassium Level 4.4 MEQ/L Chloride Level 95 MEQ/L Carbon Dioxide Level 19.2 MEQ/L Anion Gap 16 MEQ/L Estimat Glomerular Filtration Rate 38 ML/MIN Troponin I 3.04 NG/ML C-Reactive Protein 26.80 MG/DL B-Type Natriuretic Peptide 3148 PG/ML Lactic Acid Level 5.5 mmol/L [facility] Medical Decision Making Medical Screen Exam Complete: Yes Emergency Medical Condition: Yes Medical Record Reviewed: Yes (Patient was admitted in May and had a cardiac catheterization demonstrating severe three-vessel coronary artery disease and cardiomyopathy with an ejection fraction of 25-30%.) Interpretation(s) EKG: Normal sinus rhythm, ST depressions in the inferior and lateral leads CBC: 19% bandemia CMP: Low bicarb with anion gap likely secondary to lactic acidosis Lactic acid is 5.5 Renal insufficiency Troponin is 3 BNP is 3100 Last 24 hours Impressions Chest X-Ray 08/15/17 0955 Signed Impressions: CONCLUSION: 1. No acute abnormality or significant interval change. Toe X-Ray 08/15/17 0000 Signed Impressions: CONCLUSION: Questionable small erosion distal phalanx right second toe. This could be infec tious in nature if there is clinical evidence for soft tissue infection. Differential Diagnosis Congestive heart failure, pneumonia, pulmonary embolism, myocardial infarction, sepsis Narrative Course This is a 57-year-old male who presents to the emergency department reporting shortness of breath. He was placed on a monitor and an IV was established. He was found to be tachypneic within normal oxygen saturation. Labs are concerning for severe sepsis with a lactic acid of 5.5. The source appears to be osteomyelitis and gangrene of the right second toe. I discussed this with Dr. Miranda, who requested an MRI and will see the patient as an inpatient. He was given broad-spectrum antibiotics. IV fluids were deferred as the patient has a reduced ejection fraction, is dyspneic on exam and his BNP is 3100. Patient has a troponin of 3. I suspect this is demand ischemia in the setting of underlying sepsis. I did discuss this with Dr. Henao and we agreed to treat patient medically with aspirin and heparin. Patient will be admitted for medical management and podiatry consultation. Critical Care Narrative Aggregate critical care time was 45 minutes. Time to perform other separately billable procedures was not included in the critical care time. My time did not include minutes spent treating any other patients simultaneously or on activities that did not directly contribute to the patient's treatment. The services I provided to this patient were to treat and/or prevent clinically significant deterioration that could result in: Disability, I provided critical care services requiring my management, as noted below: Chart data review, documentation time, medication orders and management, vital sign assessments/reviewing monitor data, ordering and reviewing lab tests, ordering and interpreting/reviewing x-rays and diagnostic studies, care of the patient and discussion of the patient with the admitting physicians. Physician Communication Physician Communication Discussed with Dr. Kelley, Dr. Henao, and Dr. Miranda Diagnosis Primary Impression: Severe sepsis Admitting Information Admitting Physician Requests: Admit Selina Ricks MD August 15, 2017 10:02
--- NOTE | 2017-08-15 10:36 | RADRPT ---
EXAM DATE: 08/15/2017 10:31 AM EDT AGE/SEX: 57 years / Male INDICATIONS: Short of breath CLINICAL DATA: This is the patient's initial encounter. Patient reports that signs and symptoms have been present for 2 weeks and indicates a pain score of 0/10. MEDICAL/SURGICAL HISTORY: Cardiovascular disease. CABG. Pacemaker. COMPARISON: [facility] [place], CHEST SINGLE AP, 06/20/2017. . FINDINGS: Stable postsurgical features of prior median sternotomy and single lead AICD device in place. No new focal pleural or parenchymal opacities. Cardiomediastinal contours are within normal limits. Bony tho rax is intact. CONCLUSION: 1. No acute abnormality or significant interval change. Electronically signed by: Norman Barba MD 08/15/2017 10:34 AM EDT
--- NOTE | 2017-08-15 10:39 | RADRPT ---
EXAM DATE: 08/15/2017 10:34 AM EDT AGE/SEX: 57 years / Male INDICATIONS: Pain,swelling,and laceration right 2nd toe CLINICAL DATA: This is the patient's initial encounter. Patient reports that signs and symptoms have been present for 4 - 6 days and indicates a pain score of 7/10. MEDICAL/SURGICAL HISTORY: Diabetes mellitus type II. None. COMPARISON: No prior [facility] exams available for comparison. FINDINGS: There is a questionable small erosion of the distal phalanx terminal tuft second toe. No fracture or dislocation. Mild osteoarthritis in the right foot. CONCLUSION: Questionable small erosion distal phalanx right second toe. This could be infectious in nature if the re is clinical evidence for soft tissue infection. Electronically signed by: Sharif Eastman MD 08/15/2017 10:37 AM EDT
[2017-08-15 10:50] LABS: AUTOMATED NEUTROPHIL # 8.8 TH/MM3 (1.8-7.7); BASOPHIL % 0.1 % (0.0-2.0); HEMATOCRIT 43.9 % (39.0-51.0); LYMPH % 2.8 % (9.0-44.0); LYMPHOCYTE # 0.3 TH/MM3 (1.0-4.8); MEAN CELL VOLUME 81.8 FL (80.0-100.0); MEAN CORPUSCULAR HEMOGLOBIN 27.9 PG (27.0-34.0); MEAN CORPUSCULAR HGB CONC 34.1 % (32.0-36.0); MEAN PLATELET VOLUME 9.1 FL (7.0-11.0); MONO % 5.4 % (0.0-8.0); MONOCYTE # 0.5 TH/MM3 (0-0.9); NEUT % 91.7 % (16.0-70.0); PLATELET COUNT 133 TH/MM3 (150-450); RED BLOOD COUNT 5.37 MIL/MM3 (4.50-5.90); RED CELL DISTRIBUTION WIDTH 17.1 % (11.6-17.2); WHITE BLOOD COUNT 9.6 TH/MM3 (4.0-11.0)
[2017-08-15 11:03] LABS: INTERNATIONAL NORMALIZED RATIO 1.3 RATIO; PROTHROMBIN TIME - PATIENT 13.4 SEC (9.8-11.6)
[2017-08-15 11:15] LABS: ALT (GPT) 25 U/L (12-78); AST (GOT) 37 U/L (15-37); BICARBONATE 19.2 MEQ/L (21.0-32.0); BLOOD UREA NITROGEN 36 MG/DL (7-18); CALCIUM 8.8 MG/DL (8.5-10.1); CHLORIDE 95 MEQ/L (98-107); CREATININE 1.84 MG/DL (0.60-1.30); GLOMERULAR FILTRATION RATE 38 ML/MIN (>89); GLUCOSE,RANDOM 407 MG/DL (74-106); SODIUM (NA) 130 MEQ/L (136-145)
[2017-08-15 11:21] LABS: ALKALINE PHOSPHATASE 114 U/L (45-117); TOTAL BILIRUBIN ADULT 0.9 MG/DL (0.2-1.0); TOTAL PROTEIN 7.4 GM/DL (6.4-8.2)
[2017-08-15 11:25] LABS: TROPONIN I 3.04 NG/ML (0.02-0.05)
[2017-08-15] MEDS ORDERED: VANCOMYCIN INJ 1,350 MG in SODIUM CHLORID 0.9% 500 ML INJ 500 ML IV ONE (11:30)
[2017-08-15] MEDS ORDERED: ASPIRIN 81 MG CHEW TAB CHEW ONE (11:30)
[2017-08-15] MEDS ORDERED: PIPERACIL-TAZO 3.375 GM PREMIX 50 ML IV ONE (11:30)
[2017-08-15] MEDS ORDERED: HEPARIN SODIUM - IV 10,000 UNITS/10 ML VIAL IV PUSH ONE (11:45)
[2017-08-15 11:58] LABS: BANDS 19 % (0-6); LYMPHOCYTES 2 % (9-44); METAMYELOCYTES 1 % (0-1); MONOCYTES 4 % (0-8); MYELOCYTES 1 % (0-0); POLYS (SEG NEUTROPHILS) 73 % (16-70)
[2017-08-15 12:00] LABS: DOHLE BODIES PRESENT (NONE SEEN)
[2017-08-15 12:07] LABS: OVALOCYTES 1+ (NORMAL)
[2017-08-15] MEDS ORDERED: GLUCAGON 1 MG/ML VIAL OTHER PRN (13:30)
[2017-08-15] MEDS ORDERED: DEXTROSE 50% IN WATER 50 ML VIAL(D50) IV PUSH PRN (13:30)
[2017-08-15] MEDS ORDERED: Vancomycin Consult Pharmacy 1 EA OTHER SCH (13:30)
[2017-08-15] MEDS ORDERED: RESP: ALBUTEROL 2.5 MG/IPRATROPIUM 0.5 MG NEB (PRN) NEB (13:45)
--- NOTE | 2017-08-15 13:50 | HHI.HP ---
[facility] Primary Care Physician Michael Jacques DO Admission Diagnosis severe sepsis, elevated troponin Diagnoses: (1) Severe sepsis Diagnosis: Principal (2) Elevated troponin Diagnosis: Principal (3) gangrene of the right second toe Diagnosis: Principal Chief Complaint: sob Travel History International Travel<30 Days: No Contact w/Intl Traveler <30 Da: No Traveled to Known Affected Are: No Sepsis Criteria SIRS Criteria (2 or more): Heart rate over 90, RR > 20 or PaCO2 < 32 Sepsis Criteria (SIRS+source): Infect source susp/known Severe Sepsis (+one): Lactate >2 Criteria Outcome: Meets severe sepsis criteria History of Present Illness patient is a 57 y/o male with history of severe three vessel disease, cardiomyopathy, s/p defibrillator placement, hypertension, diabetes,COPD who presented to ER with worsening sob. he says that he started to have sob three days ago. it gradually got worse the past few days. he also says that he noticed some redness over the right second toe around the same time. he says that ' I'm on blood thinners and I might've bumped my foot on something'. he says that it started as a small redness but this got worse over the past few days. he denies any fever. he says that he had some occasional cough and some lower chest pain which is worse with the cough. of note he was admitted to this hospital about two months ago, underwent cardiac catheterization when he was found to have severe three vessel disease. he was evaluated by CT surgery - however he was believed to have poor targets for redo sternotomy. he had defibrillator placement at the time. Review of Systems Constitutional: DENIES: Fever, Weight loss, Chills, Night Sweats Eyes: DENIES: Blurred vision, Diplopia, Vision loss, Double Vision Ears, nose, mouth, throat: DENIES: Tinnitus, Vertigo, Throat pain, Epistaxis Respiratory: COMPLAINS OF: Shortness of breath, DENIES: Apneas, Cough, Snoring , Wheezing, Hemoptysis, Sputum production Cardiovascular: COMPLAINS OF: Chest pain, DENIES: Palpitations, Syncope, Dyspnea on Exertion, PND, Lower Extremity Edema, Orthopnea, Claudication Gastrointestinal: DENIES: Abdominal pain, Black stools, Bloody stools, Constipation, Diarrhea, Nausea, Vomiting, Difficulty Swallowing, Anorexia Genitourinary: DENIES: Urinary frequency, Urgency, Hematuria, Dysuria Musculoskeletal: COMPLAINS OF: Joint Swelling (right second toe.), DENIES: Joint pain, Muscle aches, Stiffness Integumentary: DENIES: Rash Neurologic: DENIES: Abnormal gait, Headache, Localized weakness, Paresthesias, Seizures, Speech Problems, Tremor, Poor Balance Psychiatric: DENIES: Anxiety, Confusion, Mood changes, Depression, Hallucinations, Agitation, Suicidal Ideation, Homicidal Ideation, Delusions Past Family Social History Past Medical History CAD/ hypertension/diabetes mellitus/ COPD/cardiomyopathy. Past Surgical History CABG/ foot and back surgeries. Reported Medications Cephalexin 500 Mg Cap 500 Mg PO Q8HR Famotidine 20 Mg Tab 20 Mg PO BID Aspirin DR (Aspirin) 81 Mg Tabdr 162 Mg PO DAILY Aldactone (Spironolactone) 50 Mg Tab 50 Mg PO DAILY Entresto (Sacubitril-Valsartan) 49-51 Mg Tab 1 Tab PO BID Carvedilol 6.25 Mg Tab 6.25 Mg PO BID Pravastatin 40 Mg Tab 40 Mg PO DAILY Clopidogrel (Clopidogrel Bisulfate) 75 Mg Tab 75 Mg PO DAILY Reported Glucophage (Metformin HCl) 850 Mg Tab 850 Mg PO TIDPC Glyburide 2.5 Mg Tab 2.5 Mg PO BID Take with meals at the same time each day Allergies: Coded Allergies: iodine (Unverified Allergy, Severe, Swelling, 06/12/17) potassium iodide (Unverified Allergy, Severe, Swelling, 06/12/17) povidone-iodine (Unverified Allergy, Severe, Swelling, 06/12/17) shellfish derived (Unverified Allergy, Severe, 06/12/17) sodium iodide (Unverified Allergy, Severe, Swelling, 06/12/17) sodium iodide (Unverified Allergy, Severe, Swelling, 06/12/17) Active Ordered Medications Inpatient Medications Aspirin (Aspirin Chew) 162 mg ONCE ONCE CHEW Last administered on 08/15/17at 12 :02; Start 08/15/17 at 11:30; Stop 08/15/17 at 11:31; Status DC Heparin Sodium (Porcine) (Heparin Inj) 4,000 units ONCE ONCE IV PUSH Last administered on 08/15/17at 12:03; Start 08/15/17 at 11:45; Stop 08/15/17 at 11:46 ; Status DC Heparin Sodium/ Dextrose 250 ml @ 10 mls/hr TITRATE PRN IV Coagulation Management; Start 08/15/17 at 11:45 Piperacillin Sod/ Tazobactam Sod 50 ml @ 100 mls/hr ONCE ONCE IV Last administered on 08/15/17at 12:07; Start 08/15/17 at 11:30; Stop 08/15/17 at 11:59 ; Status DC Sodium Chloride (NS Flush) 2 ml UNSCH PRN IVF FLUSH AFTER USING IV ACCESS; Start 08/15/17 at 10:00 Vancomycin HCl 1350 mg/Sodium Chloride 513.5 ml @ 250 mls/hr ONCE ONCE IV Last administered on 08/15/17at 13:27; Start 08/15/17 at 11:30; Stop 08/15/17 at 13:33 Social History doesn't smoke/ drinks occasionally. Physical Exam Vital Signs Vital Signs Date Time Temp Pulse Resp B/P (MAP) Pulse Ox O2 Delivery O2 Flow Rate FiO2 08/15/17 12:00 103 26 131/80 (97) 97 Nasal Cannula 2.00 08/15/17 09:58 100 Nasal Cannula 2.00 08/15/17 09:58 100 Nasal Cannula 2.00 08/15/17 09:54 110 28 100 Nasal Cannula 2.00 08/15/17 09:54 97.8 110 28 112/68 (83) 100 Nasal Cannula 2.00 08/15/17 09:49 97.8 108 28 112/69 (83) 100 Physical Exam GENERAL: This is a well-nourished, well-developed patient, in no apparent distress. SKIN: No rashes, ecchymoses or lesions. Cool and dry. HEAD: Atraumatic. Normocephalic. No temporal or scalp tenderness. EYES: Pupils equal round and reactive. Extraocular motions intact. No scleral icterus. No injection or drainage. ENT: Nose without bleeding, purulent drainage or septal hematoma. Throat without erythema, tonsillar hypertrophy or exudate. Uvula midline. Airway patent. NECK: Trachea midline. No JVD or lymphadenopathy. Supple, nontender, no meningeal signs. CARDIOVASCULAR: Regular rate and rhythm without murmurs, gallops, or rubs. RESPIRATORY: Clear to auscultation. Breath sounds equal bilaterally. No wheezes , rales, or rhonchi. GASTROINTESTINAL: Abdomen soft, non-tender, nondistended. No hepato-splenomegaly , or palpable masses. No guarding. MUSCULOSKELETAL: Extremities without clubbing, cyanosis, or edema. No joint tenderness, effusion, or edema noted. No calf tenderness. Negative Homans sign bilaterally. NEUROLOGICAL: Awake and alert. Cranial nerves II through XII intact. Motor and sensory grossly within normal limits. Five out of 5 muscle strength in all muscle groups. Normal speech. Laboratory Laboratory Tests Test 08/15/17 10:00 08/15/17 10:05 White Blood Count 9.6 Red Blood Count 5.37 Hemoglobin 15.0 Hematocrit 43.9 Mean Corpuscular Volume 81.8 Mean Corpuscular Hemoglobin 27.9 Mean Corpuscular Hemoglobin Concent 34.1 Red Cell Distribution Width 17.1 Platelet Count 133 Mean Platelet Volume 9.1 Neutrophils (%) (Auto) 91.7 Lymphocytes (%) (Auto) 2.8 Monocytes (%) (Auto) 5.4 Eosinophils (%) (Auto) 0.0 Basophils (%) (Auto) 0.1 Neutrophils # (Auto) 8.8 Lymphocytes # (Auto) 0.3 Monocytes # (Auto) 0.5 Eosinophils # (Auto) 0.0 Basophils # (Auto) 0.0 CBC Comment AUTO DIFF Differential Total Cells Counted 100 Neutrophils % (Manual) 73 Band Neutrophils % 19 Lymphocytes % 2 Monocytes % 4 Neutrophils # (Manual) 9.0 Metamyelocytes 1 Myelocytes 1 Differential Comment FINAL DIFF MANUAL Dohle Bodies PRESENT Platelet Estimate LOW Platelet Morphology Comment NORMAL Ovalocytes 1+ Erythrocyte Sedimentation Rate 41 Prothrombin Time 13.4 Prothromb Time International Ratio 1.3 Activated Partial Thromboplast Time 27.3 Blood Urea Nitrogen 36 Creatinine 1.84 Random Glucose 407 Total Protein 7.4 Albumin 3.0 Calcium Level 8.8 Alkaline Phosphatase 114 Aspartate Amino Transf (AST/SGOT) 37 Alanine Aminotransferase (ALT/SGPT) 25 Total Bilirubin 0.9 Sodium Level 130 Potassium Level 4.4 Chloride Level 95 Carbon Dioxide Level 19.2 Anion Gap 16 Estimat Glomerular Filtration Rate 38 Troponin I 3.04 C-Reactive Protein 26.80 B-Type Natriuretic Peptide 3148 Lactic Acid Level 5.5 Date/Time Source Procedure Growth Status 08/15/17 10:08 Blood Peripheral Aerobic Blood Culture Pending Received 08/15/17 10:08 Blood Peripheral Anaerobic Blood Culture Pending Received Result Diagram: 08/15/17 1000 08/15/17 1000 [place] VTE Risk Assessment Caprini VTE Risk Assessment: Mod/High Risk (score >= 2) Caprini Risk Assessment Model Point Value = 1 Point Value = 2 Point Value = 3 Point Value = 5 Age 41-60 Minor surgery BMI > 25 kg/m2 Swollen legs Varicose veins or History of unexplained or recurrent spontaneous Oral contraceptives or hormone replacement Sepsis (< 1 month) Serious lung disease, including pneumonia (< 1 month) Abnormal pulmonary function Acute myocardial infarction Congestive heart failure (< 1 month) History of inflammatory bowel disease Medical patient at bed rest Age 61-74 Arthroscopic surgery Major open surgery (> 45 min) Laparoscopic surgery (> 45 min) Malignancy Confined to bed (> 72 hours) Immobilizing plaster cast Central venous access Age >= 75 History of VTE Family history of VTE Factor V Leiden Prothrombin [id number] Lupus anticoagulant Anticardiolipin antibodies Elevated serum homocysteine Heparin-induced thrombocytopenia Other congenital or acquired thrombophilia Stroke (< 1 month) Elective arthroplasty Hip, pelvis, or leg fracture Acute spinal cord injury (< 1 month) Prophylaxis Regimen Total Risk Factor Score Risk Level Prophylaxis Regimen 0-1 Low Early ambulation 2 Moderate Order ONE of the following: *Sequential Compression Device (SCD) *Heparin 5000 units SQ BID 3-4 Higher Order ONE of the following medications: *Heparin 5000 units SQ TID *Enoxaparin/Lovenox 40 mg SQ daily (WT < 150 kg, CrCl > 30 mL/min) *Enoxaparin/Lovenox 30 mg SQ daily (WT < 150 kg, CrCl > 10-29 mL/min) *Enoxaparin/Lovenox 30 mg SQ BID (WT < 150 kg, CrCl > 30 mL/min) AND/OR *Sequential Compression Device (SCD) 5 or more Highest Order ONE of the following medications: *Heparin 5000 units SQ TID (Preferred with Epidurals) *Enoxaparin/Lovenox 40 mg SQ daily (WT < 150 kg, CrCl > 30 mL/min) *Enoxaparin/Lovenox 30 mg SQ daily (WT < 150 kg, CrCl > 10-29 mL/min) *Enoxaparin/Lovenox 30 mg SQ BID (WT < 150 kg, CrCl > 30 mL/min) AND *Sequential Compression Device (SCD) Assessment and Plan Assessment and Plan A/P - severe sepsis due to gangrene/ infection of the right second toe continue with broad-spectrum IV antibiotics, heparin drip and pain control- follow the cultures- consult podiatry. -elevated troponin with history of CAD- had cardiac cath two months ago with severe three vessel disease- was evaluated by CT surgery at the time with poor targets for redo sternotomy started on heparin drip- resume aspirin- will continue to trend the cardiac enzymes- cardiology consulted. -acute kidney injury; start on gentle IV hydration in light of cardiomyopathy- monitor renal function; BMP tomorrow. -cardiomyopathy with EF 25%- s/p defibrillator placement- resume Coreg and Entresto if BP remains stable. -COPD with no exacerbation; neb treatment as needed. -diabetes mellitus; uncontrolled- hold oral hypoglycemics- start on accu-check with SSI. will consider adding long-acting insulin. -hypertension; will hold BP meds for now- continue to monitor. -DVT prophylaxis; on heparin drip. Discussed Condition With ER physician and the patient. Physician Certification 2 Midnight Certification Type: Admission for Inpatient Services Order for Inpatient Services The services are ordered in accordance with Medicare regulations or non- Medicare payer requirements, as applicable. In the case of services not specified as inpatient-only, they are appropriately provided as inpatient services in accordance with the 2-midnight benchmark. Estimated LOS (days): 3 days is the estimated time the patient will need to remain in the hospital, assuming treatment plan goals are met and no additional complications. Post-Hospital Plan: Not yet determined Rayshawn Jerez MD August 15, 2017 13:50
[2017-08-15] MEDS: ACETAMINOPHEN/HYDROcodone 325 MG/5 MG TAB PO PRN (15:18)
[2017-08-15] MEDS: HEPARIN-D5W 25,000 U/250 ML 250 ML IV PRN (16:02)
[2017-08-15] MEDS ORDERED: GADOBENATE DIM PF 529 MG/ML 20ML VIAL (for RAD MRI) IV ONE (17:21)
--- NOTE | 2017-08-15 17:43 | RADRPT ---
EXAM DATE: 08/15/2017 5:37 PM EDT AGE/SEX: 57 years / Male INDICATIONS: . Second toe right foot is blue with an open wound on anterior surface. CLINICAL DATA: This is the patient's subsequent encounter. Patient reports that signs and symptoms h ave been present for 4 - 6 days and indicates a pain score of 7/10. MEDICAL/SURGICAL HISTORY: Diabetes mellitus type II. CABG. Fusion, lumbar. foot, [place] defib COMPARISON: No prior [facility] exams available for comparison. TECHNIQUE: Multiplanar, multisequence MRI examination was performed without contrast and after th e intravenous administration of 18 ml Multihance (gadobenate) single exam dose. FINDINGS: No significant marrow signal abnormality is seen to suggest osteomyelitis. There is some soft tissue swelling at the second toe. No significant abnormal marrow enhancement is seen to suggest osteomyelit is. No abnormal fluid collections. CONCLUSION: 1. No evidence for osteomyelitis. Soft tissue swelling at the second toe. Electronically signed by: Sharif Eastman MD 08/15/2017 5:42 PM EDT
[2017-08-15] MEDS: SODIUM CHLOR 0.9% 1000 ML INJ 1,000 ML IV SCH (18:23)
[2017-08-15] MEDS: INSULIN ASPART SUPPLEMENTAL SCALE SQ SCH ×2 (18:23→21:58)
--- NOTE | 2017-08-15 18:26 | MB ---
cc: Garrett Henao MD DATE: 08/15/2017 HISTORY OF PRESENT ILLNESS: Stanton is a 57-year-old gentleman with severe ischemic cardiomyopathy, who has been recommended to go on the transplant list, however, due to lack of insurance, he has not been eligible to be seen in the transplant center. He had been placed on optimal medical therapy and been doing well as an outpatient, but presented with severe shortness of breath, mild chest pain, has a gangrenous second toe. PAST MEDICAL HISTORY: As per History of Present Illness. He ____ for ICD placement by Dr. Aguirre, status post 3-vessel bypass, hyperlipidemia, diabetes, myocardial infarction in May 2012, appendectomy, skin grafts of the right foot as a child, back surgery x 3. SOCIAL HISTORY: He drinks alcohol socially. He quit smoking 3 years ago. ALLERGIES: POTASSIUM IODIDE, POVIDONE IODINE, SHELLFISH, SODIUM IODIDE. MEDICATIONS PRIOR TO ADMISSION: 1. Cephalexin 2. Famotidine. 3. Aspirin 81 mg a day. 4. Aldactone 50 mg daily. 5. Entresto 49-51. 6. Coreg 6.25 mg b.i.d. 7. Pravastatin 40 mg daily. 8. Clopidogrel 75 mg daily. 9. Glucophage 850 t.i.d. 10. Glyburide 2.5 b.i.d.. MEDICATIONS IN THE HOSPITAL: 1. Vancomycin. 2. Aspirin 162 mg daily. 3. Pravastatin 40 mg daily. 4. Pepcid 20 mg b.i.d. 5. Piperacillin-tazobactam. 6. IV heparin. PHYSICAL EXAMINATION: VITAL SIGNS: Temperature 97.8, sats 97% on nasal cannula, pulse 96, blood pressure 98/58. GENERAL: He is lethargic, oriented x 3, in moderate to severe distress. NECK: Supple. No JVD. No bruit. CARDIOVASCULAR: S1, S2. No murmurs, rubs or gallops. LUNGS: Clear to auscultation bilaterally. ABDOMEN: Soft, nontender, nondistended, with positive bowel sounds. EXTREMITIES: No extremity edema. IMAGING: Chest x-ray, no acute abnormality or significant interval change. Toe x-ray, questionable small erosion distal phalanx, right second toe. This could be infectious in nature if there is clinical evidence for soft tissue infection. LABORATORY DATA: Blood cultures are pending. EKG is not available. White count 9.6, hemoglobin 15.0, hematocrit 43.9, platelet count 133. INR 1.3. Sodium 130, potassium 4.4, chloride 95, bicarbonate 19.2, creatinine 1.84, glucose 407. Lactic acid 5.5. Troponin 3.04. C-reactive protein ____. BNP is 3148. HE HAS THE FOLLOWING DIAGNOSES: 1. Coronary artery disease. 2. Cardiomyopathy. 3. Ischemic cardiomyopathy. 4. Decompensated congestive heart failure. 5. Possible osteomyelitis. 6. Lactic acidosis. 7. Coagulopathy. 8. Non-ST elevation myocardial infarction. 9. Acute renal failure. 10. Hyponatremia. 11. Thrombocytopenia. DISCUSSION: This patient is very high risk for poor outcome due to the above listed multiple comorbidities. He has very severe ____ coronary disease and has been evaluated by interventional cardiology and CT surgery. He is not a candidate for revascularization. It was recommended that he be put on a transplant list, however, he had no insurance coverage and does not have this option. He has very minimal reserve and suspect that he has possible SIRS and/or sepsis, which will be very difficult for him to meet the metabolic demands from a cardiovascular standpoint and suspect this is why he has a non-STEMI and decompensated congestive heart failure. This presents multiple medical dilemmas, as he is also in acute renal failure, it will be difficult to diurese him. Nevertheless, we will get a renal consult. I think his prognosis is very poor. His condition is guarded. We will get a palliative care consult initially as well. Agree with aspirin and heparin. He is very high risk for noncardiac surgery due to the aforementioned comorbidities. I discussed this in detail with Dr. Parker. MD KARL Vincent/DELFINO/ashley , 04:42 PM , 05:29 PM
[2017-08-15 18:56] LABS: HEMATOCRIT 43.6 % (39.0-51.0); HEMOGLOBIN 14.5 GM/DL (13.0-17.0); MEAN CELL VOLUME 81.7 FL (80.0-100.0); MEAN CORPUSCULAR HEMOGLOBIN 27.1 PG (27.0-34.0); MEAN CORPUSCULAR HGB CONC 33.2 % (32.0-36.0); MEAN PLATELET VOLUME 9.2 FL (7.0-11.0); PLATELET COUNT 105 TH/MM3 (150-450); RED BLOOD COUNT 5.34 MIL/MM3 (4.50-5.90); RED CELL DISTRIBUTION WIDTH 17.5 % (11.6-17.2)
[2017-08-15] MEDS: PIPERACIL-TAZO 2.25 GM PREMIX 50 ML IV SCH (19:16)
--- NOTE | 2017-08-15 19:16 | PD.CONS ---
HPI Service Nephrology Consult Requested By Dr. Henao Reason for Consult Acute renal failure Primary Care Physician Michael Jacques, DO History of Present Illness Patient is a 57-year-old white male with history of diabetes, coronary artery disease, CABG, severe coronary artery disease leading to ischemic cardiomyopathy EF of 25% who had noticed redness in the right middle toe which got worse and it is black and he developed shortness of breath as well, patient has a heart catheterization in May and after which he had AICD placed due to very low ejection fraction and ischemic cardiomyopathy with severe coronary artery disease he has previous bypass surgery in 2007, patient states that he was smoking until 3 years ago 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 Review of Systems Constitutional: COMPLAINS OF: Fatigue Respiratory: COMPLAINS OF: Shortness of breath Cardiovascular: COMPLAINS OF: Dyspnea on Exertion, Orthopnea Musculoskeletal: COMPLAINS OF: Joint pain, Muscle aches, Back pain Integumentary: COMPLAINS OF: Rash Neurologic: COMPLAINS OF: Abnormal gait Psychiatric: COMPLAINS OF: Anxiety Past Family Social History Allergies: Coded Allergies: iodine (Unverified Allergy, Severe, Swelling, 06/12/17) potassium iodide (Unverified Allergy, Severe, Swelling, 06/12/17) povidone-iodine (Unverified Allergy, Severe, Swelling, 06/12/17) shellfish derived (Unverified Allergy, Severe, 06/12/17) sodium iodide (Unverified Allergy, Severe, Swelling, 06/12/17) sodium iodide (Unverified Allergy, Severe, Swelling, 06/12/17) Past Medical History Coronary artery disease Ischemic cardiomyopathy EF of 20-25% AICD Hypertension Diabetes History of smoking COPD Past Surgical History CABG 2007 Several heart catheterization Foot surgery Back surgery Reported Medications Reported Meds & Active Scripts Active Cephalexin 500 Mg Cap 500 Mg PO Q8HR Famotidine 20 Mg Tab 20 Mg PO BID Aspirin DR (Aspirin) 81 Mg Tabdr 162 Mg PO DAILY Aldactone (Spironolactone) 50 Mg Tab 50 Mg PO DAILY Entresto (Sacubitril-Valsartan) 49-51 Mg Tab 1 Tab PO BID Carvedilol 6.25 Mg Tab 6.25 Mg PO BID Pravastatin 40 Mg Tab 40 Mg PO DAILY Clopidogrel (Clopidogrel Bisulfate) 75 Mg Tab 75 Mg PO DAILY Reported Glucophage (Metformin HCl) 850 Mg Tab 850 Mg PO TIDPC Glyburide 2.5 Mg Tab 2.5 Mg PO BID Take with meals at the same time each day Active Ordered Medications Current Medications Medications (Trade) Dose Ordered Sig/Erika Route Start Time Stop Time Status Last Admin (NS Flush) 2 ml UNSCH PRN IVF 08/15/17 10:00 Heparin Sodium/ Dextrose 250 ml @ 10 mls/hr TITRATE PRN IV 08/15/17 11:45 08/15/17 16:02 (D50w (Vial) Inj) 50 ml UNSCH PRN IV PUSH 08/15/17 13:30 (Glucagon Inj) 1 mg UNSCH PRN OTHER 08/15/17 13:30 (NovoLOG SUPPLEMENTAL SCALE) 1 ACHS SLIDING SCALE SQ 08/15/17 17:00 08/15/17 18:23 Sodium Chloride 1,000 ml @ 60 mls/hr [id number] IV 08/15/17 13:30 08/15/17 18:23 Piperacillin Sod/ Tazobactam Sod 50 ml @ 100 mls/hr Q6H IV 08/15/17 18:00 Pharmacy Profile Note 0 ml @ 0 mls/hr UNSCH OTHER 08/15/17 13:30 (Ecotrin Ec) 162 mg DAILY PO 08/16/17 09:00 (Pepcid) 20 mg BID PO 08/15/17 21:00 (Pravachol) 40 mg DAILY PO 08/16/17 09:00 (Duoneb Neb) 1 ampule Q4HR NEB PRN NEB 08/15/17 13:45 08/15/17 15:38 Vancomycin HCl 1500 mg/Sodium Chloride 515 ml @ 250 mls/hr Q24H IV 08/16/17 14:00 (Tylenol) 650 mg Q4H PRN PO 08/15/17 14:30 ([place] 5-325 Mg) 1 tab Q4H PRN PO 08/15/17 14:30 08/15/17 15:18 Family History Noncontributory Social History History of 2 packs per day smoking 3 years ago, he drinks beer occasionally Physical Exam Vital Signs Vital Signs Date Time Temp Pulse Resp B/P (MAP) Pulse Ox O2 Delivery O2 Flow Rate FiO2 08/15/17 18:00 98 18 97/59 (72) 97 Nasal Cannula 2.00 5/24/18 16:03 96 18 98/58 (71) 97 Nasal Cannula 2.00 08/15/17 16:03 18 08/15/17 15:38 98 Nasal Cannula 2.00 08/15/17 14:16 100 18 137/89 (105) 98 Room Air 08/15/17 12:00 103 26 131/80 (97) 97 Nasal Cannula 2.00 08/15/17 09:58 100 Nasal Cannula 2.00 08/15/17 09:58 100 Nasal Cannula 2.00 08/15/17 09:54 110 28 100 Nasal Cannula 2.00 08/15/17 09:54 97.8 110 28 112/68 (83) 100 Nasal Cannula 2.00 08/15/17 09:49 97.8 108 28 112/69 (83) 100 Physical Exam GENERAL: Well-nourished, well-developed patient. SKIN: Warm and dry. HEAD: Normocephalic. EYES: No scleral icterus. No injection or drainage. NECK: Supple, trachea midline. No JVD or lymphadenopathy. CARDIOVASCULAR: AICD in place as well as to diminish in intensity RESPIRATORY: Breath sounds diminished at bases. GASTROINTESTINAL: Abdomen soft, non-tender, nondistended. EXTREMITIES: No cyanosis, systemic black right middle toe. NEUROLOGICAL: Awake, alert, and oriented x 3. Non-focal. Laboratory Laboratory Tests Test 08/15/17 10:00 08/15/17 10:05 08/15/17 18:32 White Blood Count 9.6 13.0 Red Blood Count 5.37 5.34 Hemoglobin 15.0 14.5 Hematocrit 43.9 43.6 Mean Corpuscular Volume 81.8 81.7 Mean Corpuscular Hemoglobin 27.9 27.1 Mean Corpuscular Hemoglobin Concent 34.1 33.2 Red Cell Distribution Width 17.1 17.5 Platelet Count 133 105 Mean Platelet Volume 9.1 9.2 Neutrophils (%) (Auto) 91.7 Lymphocytes (%) (Auto) 2.8 Monocytes (%) (Auto) 5.4 Eosinophils (%) (Auto) 0.0 Basophils (%) (Auto) 0.1 Neutrophils # (Auto) 8.8 Lymphocytes # (Auto) 0.3 Monocytes # (Auto) 0.5 Eosinophils # (Auto) 0.0 Basophils # (Auto) 0.0 CBC Comment AUTO DIFF Differential Total Cells Counted 100 Neutrophils % (Manual) 73 Band Neutrophils % 19 Lymphocytes % 2 Monocytes % 4 Neutrophils # (Manual) 9.0 Metamyelocytes 1 Myelocytes 1 Differential Comment FINAL DIFF MANUAL Dohle Bodies PRESENT Platelet Estimate LOW Platelet Morphology Comment NORMAL Ovalocytes 1+ Erythrocyte Sedimentation Rate 41 Prothrombin Time 13.4 Prothromb Time International Ratio 1.3 Activated Partial Thromboplast Time 27.3 Blood Urea Nitrogen 36 Creatinine 1.84 Random Glucose 407 Total Protein 7.4 Albumin 3.0 Calcium Level 8.8 Alkaline Phosphatase 114 Aspartate Amino Transf (AST/SGOT) 37 Alanine Aminotransferase (ALT/SGPT) 25 Total Bilirubin 0.9 Sodium Level 130 Potassium Level 4.4 Chloride Level 95 Carbon Dioxide Level 19.2 Anion Gap 16 Estimat Glomerular Filtration Rate 38 Troponin I 3.04 C-Reactive Protein 26.80 B-Type Natriuretic Peptide 3148 Lactic Acid Level 5.5 Date/Time Source Procedure Growth Status 08/15/17 10:08 Blood Peripheral Aerobic Blood Culture Pending Received 08/15/17 10:08 Blood Peripheral Anaerobic Blood Culture Pending Received Result Diagram: 08/15/17 1832 08/15/17 1000 Imaging Last Impressions Chest X-Ray 08/15/17 0955 Signed Impressions: CONCLUSION: 1. No acute abnormality or significant interval change. Toe X-Ray 08/15/17 0000 Signed Impressions: CONCLUSION: Questionable small erosion distal phalanx right second toe. This could be infec tious in nature if there is clinical evidence for soft tissue infection. Foot MRI 08/15/17 0000 Signed Impressions: CONCLUSION: 1. No evidence for osteomyelitis. Soft tissue swelling at the second toe. Assessment and Plan Problem List: (1) Acute renal failure ICD Codes: N17.9 - Acute kidney failure, unspecified Plan: Patient has her creatinine this could be the result of underlying sepsis and gangrene of the toe, he also has cardiomyopathy which can cause cardiorenal syndrome Patient is maintaining urine output We will check urine studies sodium, creatinine, protein Avoid nephrotoxic agent Follow BMP Baseline kidney ultrasound ordered (2) Severe sepsis ICD Codes: A41.9 - Sepsis, unspecified organism; R65.20 - Severe sepsis without septic shock Plan: Patient is on antibiotic vancomycin and Zosyn monitor vancomycin levels (3) gangrene of the right second toe Plan: Started on IV antibiotics as above (4) Cardiomyopathy ICD Codes: I42.9 - Cardiomyopathy, unspecified Plan: EF of 25% and AICD in place (5) Diabetes mellitus ICD Codes: E11.9 - Type 2 diabetes mellitus without complications Plan: Monitor blood glucose Fantasma Jones MD August 15, 2017 19:16
--- NOTE | 2017-08-15 20:15 | PD.CONS ---
History of Present Illness Service Podiatry/foot and ankle surgery Consult Requested By Reason for Consult Right second digit ischemia/infection Primary Care Physician Michael Jacques DO Diagnoses: History of Present Illness Foot and ankle surgery/podiatry consulted for this 57-year-old male with a history of congestive heart failure and diabetes for right second digit necrosis /infection. Patient states he presented to the emergency department because over the past 4 days he has developed difficulty breathing. Patient denies any chest pain. Patient states he has had multiple surgeries to right foot including skin grafts as he had an injury to his right foot when he was 7 years old, he has always had trouble with the right second digit as it is prone to ulceration because of the weight since Review of Systems Constitutional: COMPLAINS OF: Diaphoretic episodes, Fatigue, DENIES: Fever Endocrine: COMPLAINS OF: Heat/cold intolerance Eyes: DENIES: Blurred vision Respiratory: COMPLAINS OF: Shortness of breath Cardiovascular: COMPLAINS OF: Claudication, DENIES: Chest pain, Palpitations Psychiatric: DENIES: Anxiety, Confusion Past Family Social History Allergies: Coded Allergies: iodine (Unverified Allergy, Severe, Swelling, 06/12/17) potassium iodide (Unverified Allergy, Severe, Swelling, 06/12/17) povidone-iodine (Unverified Allergy, Severe, Swelling, 06/12/17) shellfish derived (Unverified Allergy, Severe, 06/12/17) sodium iodide (Unverified Allergy, Severe, Swelling, 06/12/17) sodium iodide (Unverified Allergy, Severe, Swelling, 06/12/17) Past Medical History As per HPI Past Surgical History Recent pacemaker placement Active Ordered Medications Current Medications Medications (Trade) Dose Ordered Sig/Erika Route Start Time Stop Time Status Last Admin (NS Flush) 2 ml UNSCH PRN IVF 08/15/17 10:00 Heparin Sodium/ Dextrose 250 ml @ 10 mls/hr TITRATE PRN IV 08/15/17 11:45 08/15/17 16:02 (D50w (Vial) Inj) 50 ml UNSCH PRN IV PUSH 08/15/17 13:30 (Glucagon Inj) 1 mg UNSCH PRN OTHER 08/15/17 13:30 (NovoLOG SUPPLEMENTAL SCALE) 1 ACHS SLIDING SCALE SQ 08/15/17 17:00 08/15/17 18:23 Sodium Chloride 1,000 ml @ 60 mls/hr [id number] IV 08/15/17 13:30 08/15/17 18:23 Piperacillin Sod/ Tazobactam Sod 50 ml @ 100 mls/hr Q6H IV 08/15/17 18:00 08/15/17 19:16 Pharmacy Profile Note 0 ml @ 0 mls/hr UNSCH OTHER 08/15/17 13:30 (Ecotrin Ec) 162 mg DAILY PO 08/16/17 09:00 (Pepcid) 20 mg BID PO 08/15/17 21:00 (Pravachol) 40 mg DAILY PO 08/16/17 09:00 (Duoneb Neb) 1 ampule Q4HR NEB PRN NEB 08/15/17 13:45 08/15/17 15:38 Vancomycin HCl 1500 mg/Sodium Chloride 515 ml @ 250 mls/hr Q24H IV 08/16/17 14:00 (Tylenol) 650 mg Q4H PRN PO 08/15/17 14:30 ([place] 5-325 Mg) 1 tab Q4H PRN PO 08/15/17 14:30 08/15/17 15:18 Physical Exam Vital Signs Vital Signs Date Time Temp Pulse Resp B/P (MAP) Pulse Ox O2 Delivery O2 Flow Rate FiO2 08/15/17 19:08 93 16 89/58 (68) 100 Nasal Cannula 2.00 08/15/17 18:00 98 18 97/59 (72) 97 Nasal Cannula 2.00 08/15/17 16:03 96 18 98/58 (71) 97 Nasal Cannula 2.00 08/15/17 16:03 18 08/15/17 15:38 98 Nasal Cannula 2.00 08/15/17 14:16 100 18 137/89 (105) 98 Room Air 08/15/17 12:00 103 26 131/80 (97) 97 Nasal Cannula 2.00 08/15/17 09:58 100 Nasal Cannula 2.00 08/15/17 09:58 100 Nasal Cannula 2.00 08/15/17 09:54 110 28 100 Nasal Cannula 2.00 08/15/17 09:54 97.8 110 28 112/68 (83) 100 Nasal Cannula 2.00 08/15/17 09:49 97.8 108 28 112/69 (83) 100 Physical Exam GENERAL: This is a well-nourished, well-developed patient, in no apparent distress. SKIN: HEAD: Atraumatic. EYES: Pupils equal round and reactive. ENT: Airway patent. NECK: Trachea midline. RESPIRATORY: Nonlabored breathing. MUSCULOSKELETAL:. Negative Homans sign bilaterally. NEUROLOGICAL: Awake and alert. Normal speech. Lower extremity physical exam: Vascular: Dorsalis pedis diminished, posterior tibial diminished. Capillary refill time within normal limits to digits X4 right foot, absent capillary refill time noted to right second digit. edema present mildly right foot Neuro: Gross sensation intact to bilateral lower extremity. Pinpoint sensation decreased bilateral lower extremity. No hyperalgesia noted to bilateral lower extremity Dermatology: This ischemic discoloration noted to right second digit with dorsal right second digit ulceration, no purulent drainage upon compression, no probe to bone, associated erythema noted into midfoot dorsally, with decreased temperaturecool to touch right second digit. Musculoskeletal: Overlapping second digit third digit noted. Laboratory Laboratory Tests Test 08/15/17 10:00 08/15/17 10:05 08/15/17 18:32 White Blood Count 9.6 13.0 Red Blood Count 5.37 5.34 Hemoglobin 15.0 14.5 Hematocrit 43.9 43.6 Mean Corpuscular Volume 81.8 81.7 Mean Corpuscular Hemoglobin 27.9 27.1 Mean Corpuscular Hemoglobin Concent 34.1 33.2 Red Cell Distribution Width 17.1 17.5 Platelet Count 133 105 Mean Platelet Volume 9.1 9.2 Neutrophils (%) (Auto) 91.7 Lymphocytes (%) (Auto) 2.8 Monocytes (%) (Auto) 5.4 Eosinophils (%) (Auto) 0.0 Basophils (%) (Auto) 0.1 Neutrophils # (Auto) 8.8 Lymphocytes # (Auto) 0.3 Monocytes # (Auto) 0.5 Eosinophils # (Auto) 0.0 Basophils # (Auto) 0.0 CBC Comment AUTO DIFF Differential Total Cells Counted 100 Neutrophils % (Manual) 73 Band Neutrophils % 19 Lymphocytes % 2 Monocytes % 4 Neutrophils # (Manual) 9.0 Metamyelocytes 1 Myelocytes 1 Differential Comment FINAL DIFF MANUAL Dohle Bodies PRESENT Platelet Estimate LOW Platelet Morphology Comment NORMAL Ovalocytes 1+ Erythrocyte Sedimentation Rate 41 Prothrombin Time 13.4 Prothromb Time International Ratio 1.3 Activated Partial Thromboplast Time 27.3 32.4 Blood Urea Nitrogen 36 Creatinine 1.84 Random Glucose 407 Total Protein 7.4 Albumin 3.0 Calcium Level 8.8 Alkaline Phosphatase 114 Aspartate Amino Transf (AST/SGOT) 37 Alanine Aminotransferase (ALT/SGPT) 25 Total Bilirubin 0.9 Sodium Level 130 Potassium Level 4.4 Chloride Level 95 Carbon Dioxide Level 19.2 Anion Gap 16 Estimat Glomerular Filtration Rate 38 Troponin I 3.04 3.94 C-Reactive Protein 26.80 B-Type Natriuretic Peptide 3148 Lactic Acid Level 5.5 3.1 Date/Time Source Procedure Growth Status 08/15/17 10:08 Blood Peripheral Aerobic Blood Culture Pending Received 08/15/17 10:08 Blood Peripheral Anaerobic Blood Culture Pending Received Result Diagram: 08/15/17 1832 08/15/17 1000 Imaging Last Impressions Chest X-Ray 08/15/17 0955 Signed Impressions: CONCLUSION: 1. No acute abnormality or significant interval change. Toe X-Ray 08/15/17 0000 Signed Impressions: CONCLUSION: Questionable small erosion distal phalanx right second toe. This could be infec tious in nature if there is clinical evidence for soft tissue infection. Foot MRI 08/15/17 0000 Signed Impressions: CONCLUSION: 1. No evidence for osteomyelitis. Soft tissue swelling at the second toe. Assessment and Plan Assessment and Plan 57-year-old male with right second digit ischemia/infection , elevated troponin Patient evaluated and examined with all questions answered with present bedside Awaiting vascular studies Patient will need right second digit amputation, awaiting demarcation Betadine with dry sterile dressing to be applied daily Will discuss with hospitalist Nyla Miranda DPM August 15, 2017 20:15
[2017-08-15] MEDS: FAMOTIDINE 20 MG TAB PO SCH (21:22)
--- NOTE | 2017-08-15 21:38 | RADRPT ---
EXAM DATE: 08/15/2017 8:43 PM EDT AGE/SEX: 57 years / Male INDICATIONS: Increased BUN and Creatinine. CLINICAL DATA: This is the patient's initial encounter. Patient reports that signs and symptoms have been present for 1 week and indicates a pain score of 2/10. MEDICAL/SURGICAL HISTORY: Diabetes mellitus type II. Chronic obstructive pulmonary disease. H ypertension. Cardiomyopathy. CABG. COMPARISON: No prior [place] exams available for comparison. No external comparison. MEASUREMENTS: Right Kidney:__13.2 x 5.3 x 6.2 cm cm Left Kidney:__12.6 x 5.9 x 6.9 cm cm FINDINGS: Right Kidney: Normal in size and shape. The echogenicity is equal to that of the liver. There is no f ocal mass, calculi or hydronephrosis. Left Kidney: Normal in size and shape. There is increased echogenicity. There is no focal mass, calcu li or hydronephrosis. Bladder: Within normal limits given the degree of distension. CONCLUSION: 1. No hydronephrosis. 2. Increased echogenicity most characteristic of medical renal disease. Electronically signed by: Nick Agee MD 08/15/2017 9:37 PM EDT
[2017-08-15 22:05] LABS: CREATININE, RANDOM URINE 79.7 MG/DL
[2017-08-16] VITALS (18 sets, daily range): BP systolic 87–143; BP diastolic 50–83; PULSE 90–155; RESP 6–36; TEMP 97.8–100.1; O2SAT 95–100
[2017-08-16] MEDS: PIPERACIL-TAZO 2.25 GM PREMIX 50 ML IV SCH ×5 (00:21→23:37)
[2017-08-16] MEDS ORDERED: METOCLOPRAMIDE HCL 10 MG/2 ML VIAL IV PUSH ONE (02:15)
[2017-08-16] MEDS ORDERED: METOCLOPRAMIDE HCL 10 MG/2 ML VIAL IV PUSH PRN (02:30)
[2017-08-16] MEDS ORDERED: ONDANSETRON ODT 4 MG TAB PO PRN (02:30)
[2017-08-16] MEDS ORDERED: METOPROLOL TARTRATE 5 MG/5 ML VIAL IV PUSH ONE (02:45)
[2017-08-16] MEDS ORDERED: METOPROLOL TARTRATE 5 MG/5 ML VIAL IV PUSH PRN (02:45)
--- NOTE | 2017-08-16 02:51 | HHI.PR ---
Addendum to Inpatient Note Additional Information RN called to inform that patient was having difficulty breathing, somewhat agitated and his heart rate is in the 150s. Went to see patient. His heart rate was around 150-155, suspicious for Atrial flutter. EKG confirmed Aflutter. We pushed 5mg of IV Metoprolol which immediately decreased his heart rate to 120s. I discussed with RN - we can give him one or two more doses of IV metoprolol tartrate 5mg. Reviewed chart. Dr. Henao (Cardiology) is following patient. Palliative care consult pending. Patient is already on Vanc and Zosyn for sepsis. Manan Sosa DO August 16, 2017 02:51
[2017-08-16 04:47] LABS: AUTOMATED NEUTROPHIL # 9.6 TH/MM3 (1.8-7.7); BASOPHIL % 0.1 % (0.0-2.0); EOSINOPHIL # 0.1 TH/MM3 (0-0.4); EOSINOPHIL % 1.3 % (0.0-4.0); HEMATOCRIT 43.8 % (39.0-51.0); HEMOGLOBIN 14.7 GM/DL (13.0-17.0); LYMPH % 3.1 % (9.0-44.0); LYMPHOCYTE # 0.3 TH/MM3 (1.0-4.8); MEAN CELL VOLUME 81.5 FL (80.0-100.0); MEAN CORPUSCULAR HEMOGLOBIN 27.3 PG (27.0-34.0); MEAN CORPUSCULAR HGB CONC 33.5 % (32.0-36.0); MONO % 9.4 % (0.0-8.0); NEUT % 86.1 % (16.0-70.0); PLATELET COUNT 86 TH/MM3 (150-450); RED BLOOD COUNT 5.37 MIL/MM3 (4.50-5.90); RED CELL DISTRIBUTION WIDTH 17.2 % (11.6-17.2); WHITE BLOOD COUNT 11.1 TH/MM3 (4.0-11.0)
[2017-08-16 05:40] LABS: ALBUMIN 2.6 GM/DL (3.4-5.0); ALKALINE PHOSPHATASE 98 U/L (45-117); ALT (GPT) 27 U/L (12-78); AST (GOT) 40 U/L (15-37); BICARBONATE 16.5 MEQ/L (21.0-32.0); BLOOD UREA NITROGEN 46 MG/DL (7-18); CALCIUM 8.6 MG/DL (8.5-10.1); CHLORIDE 102 MEQ/L (98-107); CREATININE 1.21 MG/DL (0.60-1.30); GLOMERULAR FILTRATION RATE 61 ML/MIN (>89); GLUCOSE,RANDOM 249 MG/DL (74-106); PHOSPHORUS 2.4 MG/DL (2.5-4.9); SODIUM (NA) 135 MEQ/L (136-145); TOTAL BILIRUBIN ADULT 0.7 MG/DL (0.2-1.0); TOTAL PROTEIN 6.7 GM/DL (6.4-8.2)
[2017-08-16] MEDS: SODIUM CHLOR 0.9% 1000 ML INJ 1,000 ML IV SCH ×2 (06:10→21:17)
--- NOTE | 2017-08-16 07:18 | EKG ---
Date Performed: 08/15/2017 Time Performed: 11:30:46 PTAGE: 57 years EKG: Sinus rhythm POSSIBLE LEFT ATRIAL ENLARGEMENT NONSPECIFIC ST & T-WAVE ABNORMALITY ABNORMAL ECG PREVIOUS TRACING : 08/15/2017 09.54 DOCTOR: Tyesha Aguirre Interpretating Date/Time 08/16/2017 07:16:54
--- NOTE | 2017-08-16 07:23 | EKG ---
Date Performed: 08/15/2017 Time Performed: 09:54:31 PTAGE: 57 years EKG: SINUS TACHYCARDIA WITH SHORT [place] INTERVAL POSSIBLE LEFT ATRIAL ENLARGEMENT NONSPECIFIC ST & T-WAVE ABNORMALITY ABNORMAL ECG PREVIOUS TRACING : 06/21/2017 05.09 DOCTOR: Tyesha Aguirre Interpretating Date/Time 08/16/2017 07:20:00
[2017-08-16 07:34] LABS: BANDS 32 % (0-6); LYMPHOCYTES 1 % (9-44); MONOCYTES 7 % (0-8); NEUTROPHIL # MANUAL DIFF 10.2 TH/MM3 (1.8-7.7); POLYS (SEG NEUTROPHILS) 60 % (16-70)
[2017-08-16] MEDS: ASPIRIN EC 81 MG TABEC PO SCH (08:03)
[2017-08-16] MEDS: FAMOTIDINE 20 MG TAB PO SCH ×2 (08:03→21:26)
[2017-08-16] MEDS: PRAVASTATIN SOD 40 MG TAB PO SCH (08:04)
[2017-08-16] MEDS: INSULIN ASPART SUPPLEMENTAL SCALE SQ SCH ×4 (08:14→21:26)
--- NOTE | 2017-08-16 10:05 | PD.CONS ---
Consult Service Palliative Care Consult Requested By Dr. Garrett Henao . Primary Care Physician Michael Jacques, DO Reason for Consultation a. To assist with evaluation and management of symptoms including: Dyspnea, vomiting, pain b. To assist medical decision maker(s) with: better understanding of current medical conditions; weighing benefits/burdens of medical treatment options; making medical treatment decisions. HPI History of Present Illness This is a 57-year-old male with a history of class IV congestive heart failure, EF 20-25%, ischemic cardiomyopathy not amenable to revascularization, diabetes, hypertension, hyperlipidemia, COPD, who presents to the emergency room with a four-day history of progressive dyspnea constant in duration severe, worsening with exertion, improved with rest. He describes this as being unable to catch his breath. He has had associated symptoms of diaphoresis, nausea and vomiting over the weekend. He additionally has noted painful changes in his right second toe with color changes suspicious for infection. He underwent three- vessel bypass in [place] in 2015. He underwent cardiac catheterization by Dr. Henao 06/13/2017 showing sequential 70-80% stenoses in the LAD just before the graft insertion site and then in the mid to distal LAD and distal LAD. Left main coronary artery had an ostial 50-60% stenosis and the LAD was occluded at the first diagonal artery. First diagonal is subtotally occluded in the ostial proximal segment with BRAYAN II-III flow into the vessel. In the proximal mid segment there is a 95% stenosis prior to a bifurcation with the medial branch subtotally occluded and the more lateral branch subtotally occluded in the mid segment. Of note vessel size was measured between 0.25-1 mm. Left circumflex was subtotally occluded after the second obtuse marginal and there was sequential subtotal occlusions in the mid to distal AV groove, left circumflex supplying a very small 0.5 mm distal posterior lateral artery. First obtuse marginal vessel again small, 1 mm, moderate disease in the proximal mid segment up to 50-60%. Second obtuse marginal is a 1.5-2 mm diameter, occluded in the mid segment. Left to right collaterals were noted in the distal right PDA, estimated at 0.[address] surgery evaluated and found him not to be a revascularization candidate and recommended referral to a tertiary center For transplant consideration. As the patient has no insurance this option has not been found feasible. He underwent placement of a single-chamber [place] ICD in May 2017 for sudden cardiac prevention. ED course: * Laboratory: WBC 9.6, hemoglobin 15.0, hematocrit 43.9, platelets 133, sodium 130, potassium 4.4, BUN 36, creatinine 1.84, random glucose 407 alkaline phosphatase 114, AST 37, ALT 25, total bilirubin 0.9, troponin 3.04, C-reactive protein 26.8, B natruretic peptide 3148, lactic acid 5.5. * Radiology: Right toe x-ray showed Questionable small erosion distal phalanx right second toe. Foot MRI showed no evidence for osteomyelitis. Renal ultrasound showed no hydronephrosis with increased echogenicity most characteristic of medical renal disease. Chest x-ray showed no acute abnormality or significant interval change. On evaluation this is a well-developed, well-nourished male appearing to be his stated age sitting up in bed in no acute distress. He denies any current chest pain but is seen to be mildly tachypneic with conversation or repositioning. He is reclining in bed at approximately 25 head of bed elevation without evident orthopnea. He has no significant edema. He showed fairly good insight into his disease process and understands that without a heart transplant, his condition is terminal. He still maintains some hope that he will be able to complete his Medicaid application which was previously rejected due to missing information and is aware that it takes an average of 3- 6 months for review and processing, even if his application is declined. He described his dyspnea at home as severe, constant with a feeling of not being able to get enough air, worsening with activity. He states that when the dyspnea worsens, he begins to cough severely enough to cause vomiting and then has episodes of tremors and diaphoresis post emesis. He denies any preliminary nausea to these episodes. He did complain of some midsternal chest pain on admission, none now, worsening with activity, improving with rest, 6 out of 10 in intensity, intermittent. He also has pain in his second right toe which is reddened, swollen and draining. . 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 He states that he is only able to be active for 5-10 minutes before becoming very dyspneic and exhausted. 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 He is now attempting to get disability as he has a nearly homebound existence and requires assistance to get out to doctor's appointments. . Review of Systems Constitutional: COMPLAINS OF: Diaphoretic episodes Endocrine: DENIES: Heat/cold intolerance, Polydipsia, Polyuria, Polyphagia Eyes: DENIES: Blurred vision, Diplopia, Eye inflammation, Eye pain, Vision loss , Photosensitivity, Double Vision, Blind spots Ears, nose, mouth, throat: DENIES: Tinnitus, Hearing loss, Vertigo, Nasal discharge, Oral lesions, Throat pain, Hoarseness, Ear Pain, Running Nose, Epistaxis, Sinus Pain, Toothache, Odynophagia Respiratory: COMPLAINS OF: Shortness of breath Cardiovascular: COMPLAINS OF: Dyspnea on Exertion, Orthopnea Gastrointestinal: COMPLAINS OF: Vomiting, DENIES: Abdominal pain, Black stools , Bloody stools, Constipation, Diarrhea, Nausea, Difficulty Swallowing, Anorexia , Dyspepsia or heartburn, Excessive gas, Bloating, Vomiting blood Genitourinary: DENIES: Sexual dysfunction, Urinary frequency, Urinary incontinence, Urgency, Hematuria, Dysuria, Nocturia, Penile Discharge, Testicular Pain, Testicular Swelling, Hesitancy, Dribbling, Decreased stream Musculoskeletal: DENIES: Joint pain, Muscle aches, Stiffness, Joint Swelling, Back pain, Neck pain, Decreased range of motion Integumentary: COMPLAINS OF: Abnormal pigmentation, Nail changes, Pruritus, Rash, Nodules, Tumors, Excessive dryness, Non-healing sores Hematologic/Lymphatics: DENIES: Bruising, Lymphadenopathy, Prolonged bleed w/ proced, History of transfusions Immunologic/Allergic: DENIES: Eczema, Urticaria Neurologic: DENIES: Abnormal gait, Headache, Localized weakness, Paresthesias, Seizures, Speech Problems, Tremor, Poor Balance, Change in smell or taste Psychiatric: DENIES: Anxiety, Confusion, Mood changes, Depression, Hallucinations, Agitation, Suicidal Ideation, Homicidal Ideation, Delusions, Anhedonia Past Family Social History Coded Allergies: iodine (Unverified Allergy, Severe, Swelling, 06/12/17) potassium iodide (Unverified Allergy, Severe, Swelling, 06/12/17) povidone-iodine (Unverified Allergy, Severe, Swelling, 06/12/17) shellfish derived (Unverified Allergy, Severe, 06/12/17) sodium iodide (Unverified Allergy, Severe, Swelling, 06/12/17) sodium iodide (Unverified Allergy, Severe, Swelling, 06/12/17) Past Medical History Severe ischemic cardiomyopathy EF 20-25% Hyperlipidemia Diabetes Coronary artery disease status post NH 06/04 COPD . Past Surgical History CABG 10 years ago Appendectomy Skin graft to right foot as a child Back surgeries 3 . Reported Medications Reported Meds & Active Scripts Active Cephalexin 500 Mg Cap 500 Mg PO Q8HR Famotidine 20 Mg Tab 20 Mg PO BID Aspirin DR (Aspirin) 81 Mg Tabdr 162 Mg PO DAILY Aldactone (Spironolactone) 50 Mg Tab 50 Mg PO DAILY Entresto (Sacubitril-Valsartan) 49-51 Mg Tab 1 Tab PO BID Carvedilol 6.25 Mg Tab 6.25 Mg PO BID Pravastatin 40 Mg Tab 40 Mg PO DAILY Clopidogrel (Clopidogrel Bisulfate) 75 Mg Tab 75 Mg PO DAILY Reported Glucophage (Metformin HCl) 850 Mg Tab 850 Mg PO TIDPC Glyburide 2.5 Mg Tab 2.5 Mg PO BID Take with meals at the same time each day Current Medications Medications (Trade) Dose Ordered Sig/Erika Route Start Time Stop Time Status Last Admin (NS Flush) 2 ml UNSCH PRN IVF 08/15/17 10:00 Heparin Sodium/ Dextrose 250 ml @ 10 mls/hr TITRATE PRN IV 08/15/17 11:45 08/15/17 16:02 (D50w (Vial) Inj) 50 ml UNSCH PRN IV PUSH 08/15/17 13:30 (Glucagon Inj) 1 mg UNSCH PRN OTHER 08/15/17 13:30 (NovoLOG SUPPLEMENTAL SCALE) 1 ACHS SLIDING SCALE SQ 08/15/17 17:00 08/16/17 08:14 Sodium Chloride 1,000 ml @ 60 mls/hr [id number] IV 08/15/17 13:30 08/15/17 18:23 Piperacillin Sod/ Tazobactam Sod 50 ml @ 100 mls/hr Q6H IV 08/15/17 18:00 08/16/17 06:00 Pharmacy Profile Note 0 ml @ 0 mls/hr UNSCH OTHER 08/15/17 13:30 (Ecotrin Ec) 162 mg DAILY PO 08/16/17 09:00 08/16/17 08:03 (Pepcid) 20 mg BID PO 08/15/17 21:00 08/16/17 08:03 (Pravachol) 40 mg DAILY PO 08/16/17 09:00 08/16/17 08:04 (Duoneb Neb) 1 ampule Q4HR NEB PRN NEB 08/15/17 13:45 08/15/17 15:38 Vancomycin HCl 1500 mg/Sodium Chloride 515 ml @ 250 mls/hr Q24H IV 08/16/17 14:00 (Tylenol) 650 mg Q4H PRN PO 08/15/17 14:30 (Bellwood 5-325 Mg) 1 tab Q4H PRN PO 08/15/17 14:30 08/15/17 15:18 (Reglan Inj) 5 mg Q6H PRN IV PUSH 08/16/17 02:30 (Zofran Odt) 4 mg Q6H PRN PO 08/16/17 02:30 (Lopressor Inj) 5 mg Q5M PRN IV PUSH 08/16/17 02:45 08/16/17 03:06 Family History Has a family history of coronary artery disease, NH and hypertension. . Substance Use Tobacco: Smoked from age 12 until 3 years ago, approximately 45 years. Alcohol: Denies excessive use. Prescription med abuse: Denies. Illicits: Denies. . Psychosocial History He was born in [place] and moved to [place] before he was 8 years old. 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 He has never been and has no children. He has a significant other whom he has made a healthcare surrogate. He was in the service but did not serve during more time. . Spiritual/Cultural Factors Identifies with the [employer] david and would accept shipping lead visits. . Living Will: Never completed Health Care Surrogate: Copy in medical record Durable Power of [employer] Co[employer] Machine Setter: Never completed Date completed: 08/16/2017 Health Care Surrogate(s): Healthcare surrogate is Lisseth Drake, his significant other. He has made his sister, Michelle Ayon his alternate healthcare surrogate. . Documented care wishes: No living will completed. . Today's verbally stated goals: He wishes to avoid pain and at this time is not certain whether he would be willing to undergo intubation or not. 5 wishes booklet and living will form were provided to patient for review and discussion with his significant other. . Family/friends goals: His significant other's goals are to "remain as positive as possible for as long as possible and not think about any of this". . Ethical and Legal Issues None noted. . Physical Exam Vital Signs Date Time Temp Pulse Resp B/P (MAP) Pulse Ox O2 Delivery O2 Flow Rate FiO2 08/16/17 09:34 98.0 95 18 106/64 (78) 97 Nasal Cannula 2.00 08/16/17 07:45 96 21 08/16/17 07:30 98.0 90 17 107/69 (82) 96 Room Air 08/16/17 07:10 96 18 99 Nasal Cannula 2.00 08/16/17 06:06 92 18 107/69 (82) 98 Nasal Cannula 2.00 08/16/17 05:30 96 20 87/50 (62) 100 Nasal Cannula 2.00 08/16/17 03:34 95 26 94/60 (71) 100 Nasal Cannula 2.00 08/16/17 02:42 118 34 121/61 (81) 100 Nasal Cannula 2.00 08/16/17 02:29 100.1 155 36 101/54 (70) Nasal Cannula 2.00 08/16/17 02:00 113 18 127/74 (91) 96 Nasal Cannula 2.00 08/16/17 01:00 95 16 95/54 (68) 97 Nasal Cannula 2.00 08/15/17 23:00 85 16 94/59 (71) 96 Nasal Cannula 2.00 08/15/17 22:00 98.1 86 16 96/59 (71) 97 Nasal Cannula 2.00 08/15/17 20:00 94 18 92/58 (69) 97 Nasal Cannula 2.00 08/15/17 19:08 93 16 89/58 (68) 100 Nasal Cannula 2.00 08/15/17 18:00 98 18 97/59 (72) 97 Nasal Cannula 2.00 08/15/17 16:03 96 18 98/58 (71) 97 Nasal Cannula 2.00 08/15/17 16:03 18 08/15/17 15:38 98 Nasal Cannula 2.00 08/15/17 14:16 100 18 137/89 (105) 98 Room Air 08/15/17 12:00 103 26 131/80 (97) 97 Nasal Cannula 2.00 08/15/17 09:58 100 Nasal Cannula 2.00 08/15/17 09:58 100 Nasal Cannula 2.00 08/15/17 09:54 110 28 100 Nasal Cannula 2.00 08/15/17 09:54 97.8 110 28 112/68 (83) 100 Nasal Cannula 2.00 08/15/17 09:49 97.8 108 28 112/69 (83) 100 Exam CONSTITUTIONAL/GENERAL: This is an adequately nourished patient, in no apparent distress. TUBES/LINES/DRAINS: PIV bilateral SKIN: No jaundice, rashes, or lesions. No wounds seen anteriorly. Skin temperature appropriate. Not diaphoretic. HEAD: Atraumatic. Normocephalic. EYES: Pupils equal and round and reactive. Extraocular motions intact. No scleral icterus. No injection or drainage. Fundi not examined. ENT: Hearing grossly normal. Nose without bleeding or purulent drainage. Throat without visible erythema, exudates, masses, or lesions. NECK: Trachea midline. Supple, nontender. No palpable thyroid enlargement or nodularity. CARDIOVASCULAR: Regular rate and rhythm without murmurs, gallops, or rubs. No JVD. Peripheral pulses symmetric. RESPIRATORY/CHEST: Symmetric, unlabored respirations. Clear to auscultation. Breath sounds equal bilaterally. No wheezes, rales, or rhonchi. GASTROINTESTINAL: Abdomen soft, non-tender, nondistended. No hepato-splenomegaly , or palpable masses. No guarding. Bowel sounds present. GENITOURINARY: Without palpable bladder distension. MUSCULOSKELETAL: Extremities without clubbing, cyanosis, or edema. No joint tenderness or effusion noted. No calf tenderness. No mottling or clubbing. Right second toe discolored with serosanguineous drainage, dressed. LYMPHATICS: No palpable cervical or supraclavicular adenopathy. NEUROLOGICAL: Awake and alert. Motor and sensory grossly within normal limits. Follows commands. Cognitively sharp. Moves all extremities. PSYCHIATRIC: No obvious anxiety/depression. no apparent hallucinations or other psychotic thought process. . Diagnostic Tests Laboratory Laboratory Tests Test 08/15/17 10:00 08/15/17 10:05 08/15/17 18:32 08/15/17 21:00 White Blood Count 9.6 TH/MM3 (4.0-11.0) 13.0 TH/MM3 (4.0-11.0) Red Blood Count 5.37 MIL/MM3 (4.50-5.90) 5.34 MIL/MM3 (4.50-5.90) Hemoglobin 15.0 GM/DL (13.0-17.0) 14.5 GM/DL (13.0-17.0) Hematocrit 43.9 % (39.0-51.0) 43.6 % (39.0-51.0) Mean Corpuscular Volume 81.8 FL (80.0-100.0) 81.7 FL (80.0-100.0) Mean Corpuscular Hemoglobin 27.9 PG (27.0-34.0) 27.1 PG (27.0-34.0) Mean Corpuscular Hemoglobin Concent 34.1 % (32.0-36.0) 33.2 % (32.0-36.0) Red Cell Distribution Width 17.1 % (11.6-17.2) 17.5 % (11.6-17.2) Platelet Count 133 TH/MM3 (150-450) 105 TH/MM3 (150-450) Mean Platelet Volume 9.1 FL (7.0-11.0) 9.2 FL (7.0-11.0) Neutrophils (%) (Auto) 91.7 % (16.0-70.0) Lymphocytes (%) (Auto) 2.8 % (9.0-44.0) Monocytes (%) (Auto) 5.4 % (0.0-8.0) Eosinophils (%) (Auto) 0.0 % (0.0-4.0) Basophils (%) (Auto) 0.1 % (0.0-2.0) Neutrophils # (Auto) 8.8 TH/MM3 (1.8-7.7) Lymphocytes # (Auto) 0.3 TH/MM3 (1.0-4.8) Monocytes # (Auto) 0.5 TH/MM3 (0-0.9) Eosinophils # (Auto) 0.0 TH/MM3 (0-0.4) Basophils # (Auto) 0.0 TH/MM3 (0-0.2) CBC Comment AUTO DIFF Differential Total Cells Counted 100 Neutrophils % (Manual) 73 % (16-70) Band Neutrophils % 19 % (0-6) Lymphocytes % 2 % (9-44) Monocytes % 4 % (0-8) Neutrophils # (Manual) 9.0 TH/MM3 (1.8-7.7) Metamyelocytes 1 % (0-1) Myelocytes 1 % (0-0) Differential Comment FINAL DIFF MANUAL Dohle Bodies PRESENT (NONE SEEN) Platelet Estimate LOW (NORMAL) Platelet Morphology Comment NORMAL (NORMAL) Ovalocytes 1+ (NORMAL) Erythrocyte Sedimentation Rate 41 mm/hr (0-20) Prothrombin Time 13.4 SEC (9.8-11.6) Prothromb Time International Ratio 1.3 RATIO Activated Partial Thromboplast Time 27.3 SEC (24.3-30.1) 32.4 SEC (24.3-30.1) Blood Urea Nitrogen 36 MG/DL (7-18) Creatinine 1.84 MG/DL (0.60-1.30) Random Glucose 407 MG/DL (74-106) Total Protein 7.4 GM/DL (6.4-8.2) Albumin 3.0 GM/DL (3.4-5.0) Calcium Level 8.8 MG/DL (8.5-10.1) Alkaline Phosphatase 114 U/L (45-117) Aspartate Amino Transf (AST/SGOT) 37 U/L (15-37) Alanine Aminotransferase (ALT/SGPT) 25 U/L (12-78) Total Bilirubin 0.9 MG/DL (0.2-1.0) Sodium Level 130 MEQ/L (136-145) Potassium Level 4.4 MEQ/L (3.5-5.1) Chloride Level 95 MEQ/L (98-107) Carbon Dioxide Level 19.2 MEQ/L (21.0-32.0) Anion Gap 16 MEQ/L (5-15) Estimat Glomerular Filtration Rate 38 ML/MIN (>89) Troponin I 3.04 NG/ML (0.02-0.05) 3.94 NG/ML (0.02-0.05) C-Reactive Protein 26.80 MG/DL (0.00-0.30) B-Type Natriuretic Peptide 3148 PG/ML (0-100) Lactic Acid Level 5.5 mmol/L (0.4-2.0) 3.1 mmol/L (0.4-2.0) Urine Random Creatinine 81 MG/DL (27-300) Urine Random Total Protein 98 MG/DL (0-11.8) Urine Random Sodium 12 MEQ/L Urine Protein/Creatinine Ratio 1.21 (0.00-0.14) Test 08/15/17 22:05 08/16/17 02:24 08/16/17 03:50 08/16/17 05:55 Activated Partial Thromboplast Time 34.5 SEC (24.3-30.1) 34.2 SEC (24.3-30.1) Troponin I 2.93 NG/ML (0.02-0.05) Blood Gas Puncture Site RT RADIAL Blood Gas Patient Temperature 98.6 Blood Gas HCO3 12 mmol/L (22-26) Blood Gas Base Excess -12.2 mmol/L (-2-2) Blood Gas Oxygen Saturation 97 % (90-100) Arterial Blood pH 7.39 (7.380-7.420) Arterial Blood Partial Pressure CO2 20 mmHg (38-42) Arterial Blood Partial Pressure O2 133 mmHG (61-120) Arterial Blood Oxygen Content 21.4 Vol % (12.0-20.0) Arterial Blood Carboxyhemoglobin 0.5 % (0-4) Arterial Blood Methemoglobin 0.8 % (0-2) Blood Gas Hemoglobin 15.5 G/DL (12.0-16.0) Oxygen Delivery Device NASAL CANNULA Blood Gas Liter Flow 2 L/M White Blood Count 11.1 TH/MM3 (4.0-11.0) Red Blood Count 5.37 MIL/MM3 (4.50-5.90) Hemoglobin 14.7 GM/DL (13.0-17.0) Hematocrit 43.8 % (39.0-51.0) Mean Corpuscular Volume 81.5 FL (80.0-100.0) Mean Corpuscular Hemoglobin 27.3 PG (27.0-34.0) Mean Corpuscular Hemoglobin Concent 33.5 % (32.0-36.0) Red Cell Distribution Width 17.2 % (11.6-17.2) Platelet Count 86 TH/MM3 (150-450) Mean Platelet Volume 10.0 FL (7.0-11.0) Neutrophils (%) (Auto) 86.1 % (16.0-70.0) Lymphocytes (%) (Auto) 3.1 % (9.0-44.0) Monocytes (%) (Auto) 9.4 % (0.0-8.0) Eosinophils (%) (Auto) 1.3 % (0.0-4.0) Basophils (%) (Auto) 0.1 % (0.0-2.0) Neutrophils # (Auto) 9.6 TH/MM3 (1.8-7.7) Lymphocytes # (Auto) 0.3 TH/MM3 (1.0-4.8) Monocytes # (Auto) 1.0 TH/MM3 (0-0.9) Eosinophils # (Auto) 0.1 TH/MM3 (0-0.4) Basophils # (Auto) 0.0 TH/MM3 (0-0.2) CBC Comment AUTO DIFF Differential Total Cells Counted 100 Neutrophils % (Manual) 60 % (16-70) Band Neutrophils % 32 % (0-6) Lymphocytes % 1 % (9-44) Monocytes % 7 % (0-8) Neutrophils # (Manual) 10.2 TH/MM3 (1.8-7.7) Differential Comment FINAL DIFF MANUAL Platelet Estimate LOW (NORMAL) Platelet Morphology Comment NORMAL (NORMAL) Red Cell Morphology Comment NORMAL (NORMAL) Blood Urea Nitrogen 46 MG/DL (7-18) Creatinine 1.21 MG/DL (0.60-1.30) Random Glucose 249 MG/DL (74-106) Total Protein 6.7 GM/DL (6.4-8.2) Albumin 2.6 GM/DL (3.4-5.0) Calcium Level 8.6 MG/DL (8.5-10.1) Phosphorus Level 2.4 MG/DL (2.5-4.9) Alkaline Phosphatase 98 U/L (45-117) Aspartate Amino Transf (AST/SGOT) 40 U/L (15-37) Alanine Aminotransferase (ALT/SGPT) 27 U/L (12-78) Total Bilirubin 0.7 MG/DL (0.2-1.0) Sodium Level 135 MEQ/L (136-145) Potassium Level 3.9 MEQ/L (3.5-5.1) Chloride Level 102 MEQ/L (98-107) Carbon Dioxide Level 16.5 MEQ/L (21.0-32.0) Anion Gap 17 MEQ/L (5-15) Estimat Glomerular Filtration Rate 61 ML/MIN (>89) Result Diagram: 08/16/17 0350 08/16/17 0350 Microbiology Microbiology Date/Time Source Procedure Growth Status 08/15/17 10:08 Blood Peripheral Aerobic Blood Culture - Preliminary Gram Positive Cocci Resulted 08/15/17 10:08 Anaerobic Blood Culture - Preliminary Gram Positive Cocci Resulted 08/15/17 10:00 Blood Peripheral Aerobic Blood Culture - Preliminary Gram Positive Cocci Resulted 08/15/17 10:00 Anaerobic Blood Culture - Preliminary Gram Positive Cocci Resulted Imaging Last Impressions Chest X-Ray 08/15/17 0955 Signed Impressions: CONCLUSION: 1. No acute abnormality or significant interval change. Toe X-Ray 08/15/17 0000 Signed Impressions: CONCLUSION: Questionable small erosion distal phalanx right second toe. This could be infec tious in nature if there is clinical evidence for soft tissue infection. Renal Ultrasound 08/15/17 0000 Signed Impressions: CONCLUSION: 1. No hydronephrosis. 2. Increased echogenicity most characteristic of medical renal disease. Foot MRI 08/15/17 0000 Signed Impressions: CONCLUSION: 1. No evidence for osteomyelitis. Soft tissue swelling at the second toe. Patient/Family Conference Present at Family Conference: Spoke with patient and his significant other, Lisseth at bedside. Reviewed pathophysiology of heart failure, ischemic cardiomyopathy and COPD, to include likely disease course, treatment options and goals of care. Reviewed social, medical, surgical and psychosocial history. Discussed palliative care purpose, focus and the below listed items. Provided patient with 5 wishes booklet and living will form to review. Healthcare surrogate paperwork completed and copies provided. . Family Conference Location: Bedside Issues Discussed: * Palliative care role, purpose, approach * Additional medical, psychosocial, and spiritual history * Patients general health, functional status, and cognitive changes in the months leading up to the current hospitalization * Patient/family understanding of the current medical problems * Patient/family understanding of prognosis * Patients goals of care as best understood from advance directives and/or conversations and/or values * Current medical treatment options and benefits/burdens of those options * Likely scenarios comparing ongoing aggressive care with a transition to comfort measures only * Questions answered to the best of my ability * Palliative care contact information provided Assessment and Plan Disease Oriented Problem List: (1) Multi-vessel coronary artery stenosis (2) Pulmonary HTN (3) gangrene of the right second toe (4) Cardiomyopathy (5) Acute renal failure (6) Diabetes mellitus (7) Hypertension (8) Hyperlipidemia Symptom Scale: (1) Pain, generalized (2) Dyspnea and respiratory abnormalities (3) Vomiting Pertinent Non-Medical Issues Psychosocial:He was born in [place] and moved to [place] before he was 8 years old. 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 He has never been and has no children. He has a significant other whom he has made a healthcare surrogate. He was in the service but did not serve during more time. Spiritual: He is Quaker and would accept shipping lead visits. Legal: Healthcare surrogate paperwork has been completed naming his significant other as his primary and his sister is secondary. Ethical issues impacting care: None noted. . Important Contacts Significant other : Lisseth Drake Brother: Nick Fitzpatrick Sister: Michelle Ayon , cell . Prognosis His prognosis is poor. He has a severely reduced ejection fraction of 20-25% with ischemic cardiomyopathy not a candidate for revascularization. He was referred to a tertiary center for transplant however does not have the insurance funding to do that. He is on maximal medical therapy and his symptoms remain uncontrolled. He has had for admissions to [facility] so far this year and is likely to continue to have frequent readmissions, complications and decline. . Code Status: Full Code (By default) Plan PLAN: Legal decision maker: Patient is currently capacitated to make his own decisions, but in the event that he becomes incapacitated, he has completed a healthcare surrogate form naming his significant other Lisseth as the primary healthcare surrogate and his sister Michelle, as the alternate. Goals: To be determined. CODE STATUS: FULL CODE, by default. SYMPTOMS: * Dyspnea: He complained of significant dyspnea at home with frequent coughing spells, severe enough to cause him to vomit. His dyspnea is under better control on 2 L nasal cannula, DuoNeb treatments. He is currently not receiving optimal cardiac medications of carvedilol, Entresto and spironolactone and would recommend resuming those medications as soon as cardiology feels it is appropriate. * Vomiting: He has not been vomiting at the hospital and states that it was triggered by severe coughing associated with violent tremors and generalized weakness. Ondansetron is available if needed. * Pain: Multifactorial to include right second toe infection, and non-STEMI on admission secondary to metabolic demands, bedbound status and invasive lines. [place] 5/325 mg is available and he has taken a total of 1 dose in 24 hours. SUMMARY This is a 57-year-old male with class IV heart failure, not a transplant candidate secondary to no funding. His ejection fraction is 20-25% and he is having recurrent exacerbations of heart failure. At this time he wishes to review his options and process the information given today prior to making decisions on goals of care. As I have explained to him and his significant other, this, by default, makes him in FULL CODE. He is aware that this comes with intubation and possible CPR. He does have an implantable ICD that is active at this time. Hospice was discussed and it is an option that he wishes to consider. He would be hospice appropriate if goals were consistent. Palliative care will continue to follow the patient during hospital course as condition evolves, to assist patient/decision-maker with understanding of their medical conditions, weighing benefits/burdens of treatment options, for clarification of goals of treatment. Additionally will assist with any symptoms of palliative concern. . Thank you for the opportunity to participate in the care of Mr. Estrada. Attestation To help prompt me to consider important information that might be impacting today's encounter and assessment, information from prior notes written by myself or my colleagues may have been "brought forward" into today's note. My signature on this note, however, is an attestation that I personally performed the exam, history, and/or decision-making noted today, and, unless otherwise indicated, the interactions with patient, family, and staff as well as the review of records all occurred today. I also attest that the listed assessment and stated plan reflect my best clinical judgment today based on the combination of historical information, prior notes, and today's exam/ interactions. When time spent is documented, it refers only to time spent today by the signer, or if indicated, combined time spent today by collaborating physician/nurse practitioner. . Trista Pisano August 16, 2017 10:05
--- NOTE | 2017-08-16 11:25 | HHI.PR ---
Subjective Remarks f/u; infected right foot/NSTEMI in no acute distress. denies chest pain. afebrile. doesn't report any foot pain. Objective Vitals Vital Signs Date Time Temp Pulse Resp B/P (MAP) Pulse Ox O2 Delivery O2 Flow Rate FiO2 08/16/17 09:34 98.0 95 18 106/64 (78) 97 Nasal Cannula 2.00 08/16/17 07:45 96 21 08/16/17 07:30 98.0 90 17 107/69 (82) 96 Room Air 08/16/17 07:10 96 18 99 Nasal Cannula 2.00 08/16/17 06:06 92 18 107/69 (82) 98 Nasal Cannula 2.00 08/16/17 05:30 96 20 87/50 (62) 100 Nasal Cannula 2.00 08/16/17 03:34 95 26 94/60 (71) 100 Nasal Cannula 2.00 08/16/17 02:42 118 34 121/61 (81) 100 Nasal Cannula 2.00 08/16/17 02:29 100.1 155 36 101/54 (70) Nasal Cannula 2.00 08/16/17 02:00 113 18 127/74 (91) 96 Nasal Cannula 2.00 08/16/17 01:00 95 16 95/54 (68) 97 Nasal Cannula 2.00 08/15/17 23:00 85 16 94/59 (71) 96 Nasal Cannula 2.00 08/15/17 22:00 98.1 86 16 96/59 (71) 97 Nasal Cannula 2.00 08/15/17 20:00 94 18 92/58 (69) 97 Nasal Cannula 2.00 08/15/17 19:08 93 16 89/58 (68) 100 Nasal Cannula 2.00 08/15/17 18:00 98 18 97/59 (72) 97 Nasal Cannula 2.00 08/15/17 16:03 96 18 98/58 (71) 97 Nasal Cannula 2.00 08/15/17 16:03 18 08/15/17 15:38 98 Nasal Cannula 2.00 08/15/17 14:16 100 18 137/89 (105) 98 Room Air 08/15/17 12:00 103 26 131/80 (97) 97 Nasal Cannula 2.00 I/O 5/24/18 5/08/15/17 08/16/17 08/16/17 08/16/17 07:00 15:00 23:00 07:00 15:00 23:00 Intake Total 50 ml 50 ml 613.5 ml Output Total 400 ml 600 ml Balance 50 ml -350 ml 13.5 ml Intake IV Total 50 ml 50 ml 613.5 ml Output Urine Total 400 ml 600 ml Result Diagram: 08/16/17 0350 08/16/17 0350 Imaging Last Impressions Chest X-Ray 08/15/17 0955 Signed Impressions: CONCLUSION: 1. No acute abnormality or significant interval change. Toe X-Ray 08/15/17 0000 Signed Impressions: CONCLUSION: Questionable small erosion distal phalanx right second toe. This could be infec tious in nature if there is clinical evidence for soft tissue infection. Renal Ultrasound 08/15/17 0000 Signed Impressions: CONCLUSION: 1. No hydronephrosis. 2. Increased echogenicity most characteristic of medical renal disease. Foot MRI 08/15/17 0000 Signed Impressions: CONCLUSION: 1. No evidence for osteomyelitis. Soft tissue swelling at the second toe. Objective Remarks GENERAL: This is a well-nourished, well-developed patient, in no apparent distress. CARDIOVASCULAR: Regular rate and regular rhythm without murmurs, gallops, or rubs. RESPIRATORY: Clear to auscultation. Breath sounds equal bilaterally. No wheezes , rales, or rhonchi. GASTROINTESTINAL: Abdomen soft, non-tender, nondistended. Normal, active bowel sounds MUSCULOSKELETAL: gangrene of the right second toe NEURO: Alert & Oriented x4 to person, place, time, situation. Moves all ext x4 Medications and IVs Inpatient Medications Acetaminophen (Tylenol) 650 mg Q4H PRN PO FEVER/PAIN 1-5; Start 08/15/17 at 14: 30 Acetaminophen/ Hydrocodone Bitart ([place] 5-325 Mg) 1 tab Q4H PRN PO PAIN 6-10 Last administered on 08/15/17at 15:18; Start 08/15/17 at 14:30 Albuterol/ Ipratropium (Duoneb Neb) 1 ampule Q4HR NEB PRN NEB SHORTNESS OF BREATH Last administered on 08/15/17at 15:38; Start 08/15/17 at 13:45 Aspirin (Aspirin Chew) 162 mg ONCE ONCE CHEW Last administered on 08/15/17at 12 :02; Start 08/15/17 at 11:30; Stop 08/15/17 at 11:31; Status DC Aspirin (Ecotrin Ec) 162 mg DAILY PO Last administered on 08/16/17at 08:03; Start 08/16/17 at 09:00 Dextrose (D50w (Vial) Inj) 50 ml UNSCH PRN IV PUSH HYPOGLYCEMIA-SEE COMMENTS; Start 08/15/17 at 13:30 Famotidine (Pepcid) 20 mg BID PO Last administered on 08/16/17at 08:03; Start at 21:00 Glucagon (Glucagon Inj) 1 mg UNSCH PRN OTHER HYPOGLYCEMIA-SEE COMMENTS; Start 08/15/17 at 13:30 Heparin Sodium (Porcine) (Heparin Inj) 4,000 units ONCE ONCE IV PUSH Last administered on 08/15/17at 12:03; Start 08/15/17 at 11:45; Stop 08/15/17 at 11:46 ; Status DC Heparin Sodium/ Dextrose 250 ml @ 10 mls/hr TITRATE PRN IV Coagulation Management Last administered on 08/15/17at 16:02; Start 08/15/17 at 11:45 Insulin Aspart (NovoLOG SUPPLEMENTAL SCALE) 1 ACHS SLIDING SCALE SQ Last administered on 08/16/17at 08:14; Start 08/15/17 at 17:00 Metoclopramide HCl (Reglan Inj) 5 mg Q6H PRN IV PUSH NAUSEA OR VOMITING; Start 08/16/17 at 02:30 Metoprolol Tartrate (Lopressor Inj) 5 mg Q5M PRN IV PUSH ATRIAL FLUTTER Last administered on 08/16/17at 03:06; Start 08/16/17 at 02:45 Miscellaneous Information ([facility] Ordered Lab Info) SPECIFIC LAB TO BE ... ONCE ONCE .XX ; Start 08/18/17 at 12:45; Stop 08/18/17 at 12:46 Ondansetron HCl (Zofran Odt) 4 mg Q6H PRN PO NAUSEA OR VOMITING; Start at 02:30 Pharmacy Profile Note 0 ml @ 0 mls/hr UNSCH OTHER ; Start 08/15/17 at 13:30 Piperacillin Sod/ Tazobactam Sod 50 ml @ 100 mls/hr Q6H IV Last administered on 08/16/17at 06:00; Start 08/15/17 at 18:00 Pravastatin Sodium (Pravachol) 40 mg DAILY PO Last administered on 08/16/17at 08 :04; Start 08/16/17 at 09:00 Sodium Chloride 1,000 ml @ 60 mls/hr [id number] IV Last administered on at 18:23; Start 08/15/17 at 13:30 Sodium Chloride (NS Flush) 2 ml UNSCH PRN IVF FLUSH AFTER USING IV ACCESS; Start 08/15/17 at 10:00 Vancomycin HCl 1350 mg/Sodium Chloride 513.5 ml @ 250 mls/hr ONCE ONCE IV Last administered on 08/15/17at 13:27; Start 08/15/17 at 11:30; Stop 08/15/17 at 13:33; Status DC Vancomycin HCl 1500 mg/Sodium Chloride 515 ml @ 250 mls/hr Q24H IV ; Start at 14:00 A/P Problem List: (1) Severe sepsis ICD Code: A41.9 - Sepsis, unspecified organism; R65.20 - Severe sepsis without septic shock (2) Elevated troponin ICD Code: R74.8 - Abnormal levels of other serum enzymes (3) gangrene of the right second toe Assessment and Plan A/P - severe sepsis due to gangrene/ infection of the right second toe continue with broad-spectrum IV antibiotics, heparin drip and pain control- follow the cultures- podiatry consult appreciated and plan for amputation of the right second toe. -staph aureus bacteremia- continue Vancomycin- check echo- consult ID. -NSTEMI with history of CAD- had cardiac cath two months ago with severe three vessel disease- was evaluated by CT surgery at the time with poor targets for redo sternotomy started on heparin drip- resumed aspirin- cardiology consult appreciated. -acute kidney injury; improved- started on gentle IV hydration in light of cardiomyopathy- monitor renal function; BMP tomorrow. -cardiomyopathy with EF 25%- s/p defibrillator placement- resume Coreg and Entresto if BP remains stable. -thrombocytopenia- will monitor closely while on Heparin drip; CBC tomorrow. -COPD with no exacerbation; neb treatment as needed. -diabetes mellitus; uncontrolled- hold oral hypoglycemics- start on accu-check with SSI. will add Levemir. -hypertension; will hold BP meds for now- continue to monitor. -DVT prophylaxis; on heparin drip. palliative care consulted. Rayshawn Jerez MD August 16, 2017 11:25
[2017-08-16] MEDS ORDERED: VANCOMYCIN INJ 1,500 MG in SODIUM CHLORID 0.9% 500 ML INJ 500 ML IV SCH (14:00)
--- NOTE | 2017-08-16 14:19 | PD.CARD.PN ---
Subjective Subjective Remarks chest pain resolved, dyspnea improved to mild Objective Medications Current Medications Medications (Trade) Dose Ordered Sig/Erika Route Start Time Stop Time Status Last Admin (NS Flush) 2 ml UNSCH PRN IVF 08/15/17 10:00 Heparin Sodium/ Dextrose 250 ml @ 10 mls/hr TITRATE PRN IV 08/15/17 11:45 08/15/17 16:02 (D50w (Vial) Inj) 50 ml UNSCH PRN IV PUSH 08/15/17 13:30 (Glucagon Inj) 1 mg UNSCH PRN OTHER 08/15/17 13:30 (NovoLOG SUPPLEMENTAL SCALE) 1 ACHS SLIDING SCALE SQ 08/15/17 17:00 08/16/17 08:14 Sodium Chloride 1,000 ml @ 60 mls/hr [id number] IV 08/15/17 13:30 08/15/17 18:23 Piperacillin Sod/ Tazobactam Sod 50 ml @ 100 mls/hr Q6H IV 08/15/17 18:00 08/16/17 12:29 Pharmacy Profile Note 0 ml @ 0 mls/hr UNSCH OTHER 08/15/17 13:30 (Ecotrin Ec) 162 mg DAILY PO 08/16/17 09:00 08/16/17 08:03 (Pepcid) 20 mg BID PO 08/15/17 21:00 08/16/17 08:03 (Pravachol) 40 mg DAILY PO 08/16/17 09:00 08/16/17 08:04 (Duoneb Neb) 1 ampule Q4HR NEB PRN NEB 08/15/17 13:45 08/15/17 15:38 Vancomycin HCl 1500 mg/Sodium Chloride 515 ml @ 250 mls/hr Q24H IV 08/16/17 14:00 (Tylenol) 650 mg Q4H PRN PO 08/15/17 14:30 ([place] 5-325 Mg) 1 tab Q4H PRN PO 08/15/17 14:30 08/15/17 15:18 (Reglan Inj) 5 mg Q6H PRN IV PUSH 08/16/17 02:30 (Zofran Odt) 4 mg Q6H PRN PO 08/16/17 02:30 (Lopressor Inj) 5 mg Q5M PRN IV PUSH 5/25/18 02:45 08/16/17 03:06 ([facility] [place] [facility] Ordered Lab Info) SPECIFIC LAB TO BE SHERRON... ONCE ONCE .XX 08/18/17 12:45 08/18/17 12:46 (Levemir Inj) 10 units HS SQ 08/16/17 21:00 Vital Signs / I&O Vital Signs Date Time Temp Pulse Resp B/P (MAP) Pulse Ox O2 Delivery O2 Flow Rate FiO2 08/16/17 09:34 98.0 95 18 106/64 (78) 97 Nasal Cannula 2.00 08/16/17 07:45 96 21 08/16/17 07:30 98.0 90 17 107/69 (82) 96 Room Air 08/16/17 07:10 96 18 99 Nasal Cannula 2.00 08/16/17 06:06 92 18 107/69 (82) 98 Nasal Cannula 2.00 08/16/17 05:30 96 20 87/50 (62) 100 Nasal Cannula 2.00 08/16/17 03:34 95 26 94/60 (71) 100 Nasal Cannula 2.00 08/16/17 02:42 118 34 121/61 (81) 100 Nasal Cannula 2.00 08/16/17 02:29 100.1 155 36 101/54 (70) Nasal Cannula 2.00 08/16/17 02:00 113 18 127/74 (91) 96 Nasal Cannula 2.00 08/16/17 01:00 95 16 95/54 (68) 97 Nasal Cannula 2.00 08/15/17 23:00 85 16 94/59 (71) 96 Nasal Cannula 2.00 08/15/17 22:00 98.1 86 16 96/59 (71) 97 Nasal Cannula 2.00 08/15/17 20:00 94 18 92/58 (69) 97 Nasal Cannula 2.00 08/15/17 19:08 93 16 89/58 (68) 100 Nasal Cannula 2.00 08/15/17 18:00 98 18 97/59 (72) 97 Nasal Cannula 2.00 08/15/17 16:03 96 18 98/58 (71) 97 Nasal Cannula 2.00 08/15/17 16:03 18 08/15/17 15:38 98 Nasal Cannula 2.00 08/15/17 14:16 100 18 137/89 (105) 98 Room Air I/O 08/15/17 08/15/17 08/15/17 08/16/17 08/16/17 08/16/17 07:00 15:00 23:00 07:00 15:00 23:00 Intake Total 50 ml 50 ml 613.5 ml Output Total 400 ml 600 ml Balance 50 ml -350 ml 13.5 ml Intake IV Total 50 ml 50 ml 613.5 ml Output Urine Total 400 ml 600 ml Physical Exam GENERAL: SKIN: Warm and dry. HEAD: Normocephalic. EYES: No scleral icterus. No injection or drainage. NECK: Supple, trachea midline. No JVD or lymphadenopathy. CARDIOVASCULAR: Regular rate and rhythm without murmurs, gallops, or rubs. RESPIRATORY: Breath sounds equal bilaterally. No accessory muscle use. GASTROINTESTINAL: Abdomen soft, non-tender, nondistended. MUSCULOSKELETAL: No cyanosis, or edema. BACK: Nontender without obvious deformity. No CVA tenderness. Laboratory Laboratory Tests Test 08/15/17 18:32 08/15/17 21:00 08/15/17 22:05 08/16/17 02:24 White Blood Count 13.0 TH/MM3 Red Blood Count 5.34 MIL/MM3 Hemoglobin 14.5 GM/DL Hematocrit 43.6 % Mean Corpuscular Volume 81.7 FL Mean Corpuscular Hemoglobin 27.1 PG Mean Corpuscular Hemoglobin Concent 33.2 % Red Cell Distribution Width 17.5 % Platelet Count 105 TH/MM3 Mean Platelet Volume 9.2 FL Activated Partial Thromboplast Time 32.4 SEC 34.5 SEC Lactic Acid Level 3.1 mmol/L Troponin I 3.94 NG/ML 2.93 NG/ML Urine Random Creatinine 81 MG/DL Urine Random Total Protein 98 MG/DL Urine Random Sodium 12 MEQ/L Urine Protein/Creatinine Ratio 1.21 Blood Gas Puncture Site RT RADIAL Blood Gas Patient Temperature 98.6 Blood Gas HCO3 12 mmol/L Blood Gas Base Excess -12.2 mmol/L Blood Gas Oxygen Saturation 97 % Arterial Blood pH 7.39 Arterial Blood Partial Pressure CO2 20 mmHg Arterial Blood Partial Pressure O2 133 mmHG Arterial Blood Oxygen Content 21.4 Vol % Arterial Blood Carboxyhemoglobin 0.5 % Arterial Blood Methemoglobin 0.8 % Blood Gas Hemoglobin 15.5 G/DL Oxygen Delivery Device NASAL CANNULA Blood Gas Liter Flow 2 L/M Test 08/16/17 03:50 08/16/17 05:55 08/16/17 11:35 08/16/17 13:10 White Blood Count 11.1 TH/MM3 Red Blood Count 5.37 MIL/MM3 Hemoglobin 14.7 GM/DL Hematocrit 43.8 % Mean Corpuscular Volume 81.5 FL Mean Corpuscular Hemoglobin 27.3 PG Mean Corpuscular Hemoglobin Concent 33.5 % Red Cell Distribution Width 17.2 % Platelet Count 86 TH/MM3 Mean Platelet Volume 10.0 FL Neutrophils (%) (Auto) 86.1 % Lymphocytes (%) (Auto) 3.1 % Monocytes (%) (Auto) 9.4 % Eosinophils (%) (Auto) 1.3 % Basophils (%) (Auto) 0.1 % Neutrophils # (Auto) 9.6 TH/MM3 Lymphocytes # (Auto) 0.3 TH/MM3 Monocytes # (Auto) 1.0 TH/MM3 Eosinophils # (Auto) 0.1 TH/MM3 Basophils # (Auto) 0.0 TH/MM3 CBC Comment AUTO DIFF Differential Total Cells Counted 100 Neutrophils % (Manual) 60 % Band Neutrophils % 32 % Lymphocytes % 1 % Monocytes % 7 % Neutrophils # (Manual) 10.2 TH/MM3 Differential Comment FINAL DIFF MANUAL Platelet Estimate LOW Platelet Morphology Comment NORMAL Red Cell Morphology Comment NORMAL Blood Urea Nitrogen 46 MG/DL Creatinine 1.21 MG/DL Random Glucose 249 MG/DL Total Protein 6.7 GM/DL Albumin 2.6 GM/DL Calcium Level 8.6 MG/DL Phosphorus Level 2.4 MG/DL Alkaline Phosphatase 98 U/L Aspartate Amino Transf (AST/SGOT) 40 U/L Alanine Aminotransferase (ALT/SGPT) 27 U/L Total Bilirubin 0.7 MG/DL Sodium Level 135 MEQ/L Potassium Level 3.9 MEQ/L Chloride Level 102 MEQ/L Carbon Dioxide Level 16.5 MEQ/L Anion Gap 17 MEQ/L Estimat Glomerular Filtration Rate 61 ML/MIN Activated Partial Thromboplast Time 34.2 SEC 28.7 SEC Lactic Acid Level 2.4 mmol/L Assessment and Plan Problem List: (1) ARF (acute renal failure) ICD Codes: N17.9 - Acute kidney failure, unspecified (2) NSTEMI (non-ST elevated myocardial infarction) ICD Codes: I21.4 - Non-ST elevation (NSTEMI) myocardial infarction (3) CAD (coronary artery disease) ICD Codes: I25.10 - Atherosclerotic heart disease of [place] coronary artery without angina pectoris (4) Decreased cardiac ejection fraction ICD Codes: R93.1 - Abnormal findings on diagnostic imaging of heart and coronary circulation (5) Elevated troponin ICD Codes: R74.8 - Abnormal levels of other serum enzymes (6) Severe sepsis ICD Codes: A41.9 - Sepsis, unspecified organism; R65.20 - Severe sepsis without septic shock (7) Diabetes mellitus ICD Codes: E11.9 - Type 2 diabetes mellitus without complications (8) Acute renal failure ICD Codes: N17.9 - Acute kidney failure, unspecified (9) Cardiomyopathy ICD Codes: I42.9 - Cardiomyopathy, unspecified (10) gangrene of the right second toe (11) Dyspnea and respiratory abnormalities ICD Codes: R06.00 - Dyspnea, unspecified; R06.89 - Other abnormalities of breathing (12) Multi-vessel coronary artery stenosis ICD Codes: I25.10 - Atherosclerotic heart disease of [place] coronary artery without angina pectoris (13) Hx of CABG ICD Codes: Z95.1 - Presence of aortocoronary bypass graft Assessment and Plan 1.) Ischemic cardiomyopathy - nstemi, chf excacerbation and arf due to severe unrevascularizable cad, cardiomyopathy and high metabolic demand from sepsis, clinically improving on iv heparin, aspirin and antibiotics, noncardica procedure is high risk due to multiple unstable comorbidities and nstemi Garrett Henao MD August 16, 2017 14:19
--- NOTE | 2017-08-16 16:04 | PD.ID.CON ---
History of Present Illness Service ID Consult Requested By Reason for Consult Evaluation and Mment of Staph bacteremia and osteomyelitis of 2nd digit of right foot. Primary Care Physician Michael Jacques DO Diagnoses: History of Present Illness is a 57 y/o CM with PMHx of CHF, Ischemic Cardiomyopathy with last reported EF 20-25%, he has prior h/o CABG x 3, defibrillator and pacemaker, DM, HTN and hyperlipidemia. CT surgery evaluated and found him not to be a revascularization candidate and recommended referral to a tertiary center for transplant consideration. As the patient has no insurance this option has not been found feasible. He underwent placement of a single-chamber [place] ICD in May 2017 for sudden cardiac prevention. With this background patient presents to the ED at [facility] with 4 day history of progressive dyspnea described as severe, worsening with exertion, and improved with rest. He has had associated symptoms of diaphoresis, nausea and vomiting over the weekend. He additionally has noted painful changes in his right second toe with color changes suspicious for infection. In ED patient was noted to have WBC 9.6, hemoglobin 15.0, hematocrit 43.9, platelets 133, sodium 130, potassium 4.4, BUN 36, creatinine 1.84, random glucose 407 alkaline phosphatase 114, AST 37, ALT 25, total bilirubin 0.9, troponin 3.04, C-reactive protein 26.8, B natruretic peptide 3148, lactic acid 5.5. Ax Xray of Rt toe showed erosion. MRI with no osteomyelitis. Chest x-ray showed no acute abnormality or significant interval change. 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 He states that he is only able to be active for 5-10 minutes before becoming very dyspneic and exhausted. 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 He is now attempting to get disability as he has a nearly homebound existence and requires assistance to get out to doctor's appointments. Sepsis workup on admission positive for Staph bacteremia and ID consulted for evaluation and Mment of the same. Review of Systems ROS Limitations: Poor Historian Constitutional: COMPLAINS OF: Fatigue, DENIES: Diaphoretic episodes, Fever, Weight gain, Weight loss, Chills, Dizziness, Change in appetite, Night Sweats Endocrine: DENIES: Heat/cold intolerance, Polydipsia, Polyuria, Polyphagia Eyes: DENIES: Blurred vision, Diplopia, Eye inflammation, Eye pain, Vision loss , Photosensitivity, Double Vision Ears, nose, mouth, throat: DENIES: Tinnitus, Hearing loss, Vertigo, Nasal discharge, Oral lesions, Throat pain, Hoarseness, Ear Pain, Running Nose, Epistaxis, Sinus Pain, Toothache, Odynophagia Respiratory: COMPLAINS OF: Shortness of breath, DENIES: Apneas, Cough, Snoring , Wheezing, Hemoptysis, Sputum production Cardiovascular: COMPLAINS OF: Dyspnea on Exertion, Orthopnea, DENIES: Chest pain, Palpitations, Syncope, PND, Lower Extremity Edema, Claudication Gastrointestinal: DENIES: Abdominal pain, Black stools, Bloody stools, Constipation, Diarrhea, Nausea, Vomiting, Difficulty Swallowing, Anorexia Genitourinary: DENIES: Sexual dysfunction, Urinary frequency, Urinary incontinence, Urgency, Hematuria, Dysuria, Nocturia, Penile Discharge, Testicular Pain, Testicular Swelling Musculoskeletal: COMPLAINS OF: Joint pain, Joint Swelling Integumentary: COMPLAINS OF: Abnormal pigmentation, DENIES: Nail changes, Pruritus, Rash Hematologic/lymphatic: DENIES: Bruising, Lymphadenopathy Immunologic/allergic: DENIES: Eczema, Urticaria Neurologic: DENIES: Abnormal gait, Headache, Localized weakness, Paresthesias, Seizures, Speech Problems, Tremor, Poor Balance Psychiatric: DENIES: Anxiety, Confusion, Mood changes, Depression, Hallucinations, Agitation, Suicidal Ideation, Homicidal Ideation, Delusions Except as stated in HPI: all other systems reviewed are Neg Past Family Social History Allergies: Coded Allergies: iodine (Unverified Allergy, Severe, Swelling, 06/12/17) potassium iodide (Unverified Allergy, Severe, Swelling, 06/12/17) povidone-iodine (Unverified Allergy, Severe, Swelling, 06/12/17) shellfish derived (Unverified Allergy, Severe, 06/12/17) sodium iodide (Unverified Allergy, Severe, Swelling, 06/12/17) sodium iodide (Unverified Allergy, Severe, Swelling, 06/12/17) Past Medical History Severe ischemic cardiomyopathy EF 20-25% Hyperlipidemia Diabetes Coronary artery disease status post PR 06/04 COPD Past Surgical History CABG 10 years ago Pacemaker/Defibrillator insertion Appendectomy Skin graft to right foot as a child Back surgeries 3 has hardware in back per report. Reported Medications Reported Meds & Active Scripts Active Cephalexin 500 Mg Cap 500 Mg PO Q8HR Famotidine 20 Mg Tab 20 Mg PO BID Aspirin DR (Aspirin) 81 Mg Tabdr 162 Mg PO DAILY Aldactone (Spironolactone) 50 Mg Tab 50 Mg PO DAILY Entresto (Sacubitril-Valsartan) 49-51 Mg Tab 1 Tab PO BID Carvedilol 6.25 Mg Tab 6.25 Mg PO BID Pravastatin 40 Mg Tab 40 Mg PO DAILY Clopidogrel (Clopidogrel Bisulfate) 75 Mg Tab 75 Mg PO DAILY Reported Glucophage (Metformin HCl) 850 Mg Tab 850 Mg PO TIDPC Glyburide 2.5 Mg Tab 2.5 Mg PO BID Take with meals at the same time each day Active Ordered Medications Current Medications Medications (Trade) Dose Ordered Sig/Erika Route Start Time Stop Time Status Last Admin (NS Flush) 2 ml UNSCH PRN IVF 08/15/17 10:00 08/16/17 21:28 Heparin Sodium/ Dextrose 250 ml @ 10 mls/hr TITRATE PRN IV 08/15/17 11:45 08/16/17 16:19 (D50w (Vial) Inj) 50 ml UNSCH PRN IV PUSH 08/15/17 13:30 (Glucagon Inj) 1 mg UNSCH PRN OTHER 08/15/17 13:30 (NovoLOG SUPPLEMENTAL SCALE) 1 ACHS SLIDING SCALE SQ 08/15/17 17:00 08/16/17 21:26 Sodium Chloride 1,000 ml @ 60 mls/hr [id number] IV 08/15/17 13:30 08/15/17 18:23 Piperacillin Sod/ Tazobactam Sod 50 ml @ 100 mls/hr Q6H IV 08/15/17 18:00 08/16/17 18:12 Pharmacy Profile Note 0 ml @ 0 mls/hr UNSCH OTHER 08/15/17 13:30 (Ecotrin Ec) 162 mg DAILY PO 08/16/17 09:00 08/16/17 08:03 (Pepcid) 20 mg BID PO 08/15/17 21:00 08/16/17 21:26 (Pravachol) 40 mg DAILY PO 08/16/17 09:00 08/16/17 08:04 (Duoneb Neb) 1 ampule Q4HR NEB PRN NEB 08/15/17 13:45 08/15/17 15:38 (Tylenol) 650 mg Q4H PRN PO 08/15/17 14:30 08/16/17 20:09 (Fyffe 5-325 Mg) 1 tab Q4H PRN PO 08/15/17 14:30 08/15/17 15:18 (Reglan Inj) 5 mg Q6H PRN IV PUSH 08/16/17 02:30 08/16/17 20:10 (Zofran Odt) 4 mg Q6H PRN PO 08/16/17 02:30 (Lopressor Inj) 5 mg Q5M PRN IV PUSH 08/16/17 02:45 08/16/17 03:06 (Levemir Inj) 10 units HS SQ 08/16/17 21:00 08/16/17 21:26 Vancomycin HCl 1000 mg/Sodium Chloride 250 ml @ 250 mls/hr Q12H IV 08/17/17 02:00 ([facility] Ordered Lab Info) SPECIFIC LAB TO BE ... ONCE ONCE .XX 08/18/17 13:45 08/18/17 13:46 Family History reviewed significant for PR,CAD and HTN in multiple family members. Social History Lives with significant other. Smokes for 45 yrs quit 2 yrs back. POA is significant other per palliative care notes. Denies alcohol or smoking. Used to be a operator and truck driver in past. Physical Exam Vital Signs Vital Signs Date Time Temp Pulse Resp B/P (MAP) Pulse Ox O2 Delivery O2 Flow Rate FiO2 08/16/17 15:15 98.0 105 15 123/69 (87) 98 Nasal Cannula 2.00 08/16/17 14:15 97.8 98 20 118/72 (87) 97 Nasal Cannula 2.00 08/16/17 09:34 98.0 95 18 106/64 (78) 97 Nasal Cannula 2.00 08/16/17 07:45 96 21 08/16/17 07:30 98.0 90 17 107/69 (82) 96 Room Air 08/16/17 07:10 96 18 99 Nasal Cannula 2.00 08/16/17 06:06 92 18 107/69 (82) 98 Nasal Cannula 2.00 08/16/17 05:30 96 20 87/50 (62) 100 Nasal Cannula 2.00 08/16/17 03:34 95 26 94/60 (71) 100 Nasal Cannula 2.00 08/16/17 02:42 118 34 121/61 (81) 100 Nasal Cannula 2.00 08/16/17 02:29 100.1 155 36 101/54 (70) Nasal Cannula 2.00 08/16/17 02:00 113 18 127/74 (91) 96 Nasal Cannula 2.00 08/16/17 01:00 95 16 95/54 (68) 97 Nasal Cannula 2.00 08/15/17 23:00 85 16 94/59 (71) 96 Nasal Cannula 2.00 08/15/17 22:00 98.1 86 16 96/59 (71) 97 Nasal Cannula 2.00 08/15/17 20:00 94 18 92/58 (69) 97 Nasal Cannula 2.00 08/15/17 19:08 93 16 89/58 (68) 100 Nasal Cannula 2.00 08/15/17 18:00 98 18 97/59 (72) 97 Nasal Cannula 2.00 Physical Exam GENERAL: This is a well-nourished, well-developed patient, in no apparent distress. SKIN: No rashes or lesions. Cool and dry. HEAD: Atraumatic. Normocephalic. No temporal or scalp tenderness. EYES: Pupils equal round and reactive. Extraocular motions intact. No scleral icterus. No injection or drainage. ENT: Nose without bleeding, purulent drainage or septal hematoma. Throat without erythema, tonsillar hypertrophy or exudate. Uvula midline. Airway patent. NECK: Trachea midline. Supple, nontender, no meningeal signs. CARDIOVASCULAR: HS audible. RESPIRATORY: Clear to auscultation. Breath sounds equal bilaterally. No wheezes , rales, or rhonchi. GASTROINTESTINAL: Abdomen soft, non-tender, nondistended. MUSCULOSKELETAL: Right 2nd toe with greyish black hue, cold, clammy, with surrounding erythema. Streaks noted on dorsum of foot. Decreased dorsalis pedis , posterior tibialis as well as diminished popliteal pulsations. NEUROLOGICAL: Awake and alert. Cranial nerves II through XII intact. Motor and sensory grossly within normal limits. Five out of 5 muscle strength in all muscle groups. Normal speech. Psych cooperative IV line sites with no e.o infection. Laboratory Laboratory Tests Test 08/15/17 18:32 08/15/17 21:00 08/15/17 22:05 08/16/17 02:24 White Blood Count 13.0 Red Blood Count 5.34 Hemoglobin 14.5 Hematocrit 43.6 Mean Corpuscular Volume 81.7 Mean Corpuscular Hemoglobin 27.1 Mean Corpuscular Hemoglobin Concent 33.2 Red Cell Distribution Width 17.5 Platelet Count 105 Mean Platelet Volume 9.2 Activated Partial Thromboplast Time 32.4 34.5 Lactic Acid Level 3.1 Troponin I 3.94 2.93 Urine Random Creatinine 81 Urine Random Total Protein 98 Urine Random Sodium 12 Urine Protein/Creatinine Ratio 1.21 Blood Gas Puncture Site RT RADIAL Blood Gas Patient Temperature 98.6 Blood Gas HCO3 12 Blood Gas Base Excess -12.2 Blood Gas Oxygen Saturation 97 Arterial Blood pH 7.39 Arterial Blood Partial Pressure CO2 20 Arterial Blood Partial Pressure O2 133 Arterial Blood Oxygen Content 21.4 Arterial Blood Carboxyhemoglobin 0.5 Arterial Blood Methemoglobin 0.8 Blood Gas Hemoglobin 15.5 Oxygen Delivery Device NASAL CANNULA Blood Gas Liter Flow 2 Test 08/16/17 03:50 08/16/17 05:55 08/16/17 11:35 08/16/17 13:10 White Blood Count 11.1 Red Blood Count 5.37 Hemoglobin 14.7 Hematocrit 43.8 Mean Corpuscular Volume 81.5 Mean Corpuscular Hemoglobin 27.3 Mean Corpuscular Hemoglobin Concent 33.5 Red Cell Distribution Width 17.2 Platelet Count 86 Mean Platelet Volume 10.0 Neutrophils (%) (Auto) 86.1 Lymphocytes (%) (Auto) 3.1 Monocytes (%) (Auto) 9.4 Eosinophils (%) (Auto) 1.3 Basophils (%) (Auto) 0.1 Neutrophils # (Auto) 9.6 Lymphocytes # (Auto) 0.3 Monocytes # (Auto) 1.0 Eosinophils # (Auto) 0.1 Basophils # (Auto) 0.0 CBC Comment AUTO DIFF Differential Total Cells Counted 100 Neutrophils % (Manual) 60 Band Neutrophils % 32 Lymphocytes % 1 Monocytes % 7 Neutrophils # (Manual) 10.2 Differential Comment FINAL DIFF MANUAL Platelet Estimate LOW Platelet Morphology Comment NORMAL Red Cell Morphology Comment NORMAL Blood Urea Nitrogen 46 Creatinine 1.21 Random Glucose 249 Total Protein 6.7 Albumin 2.6 Calcium Level 8.6 Phosphorus Level 2.4 Alkaline Phosphatase 98 Aspartate Amino Transf (AST/SGOT) 40 Alanine Aminotransferase (ALT/SGPT) 27 Total Bilirubin 0.7 Sodium Level 135 Potassium Level 3.9 Chloride Level 102 Carbon Dioxide Level 16.5 Anion Gap 17 Estimat Glomerular Filtration Rate 61 Activated Partial Thromboplast Time 34.2 28.7 Lactic Acid Level 2.4 Date/Time Source Procedure Growth Status 08/15/17 10:08 Blood Peripheral Aerobic Blood Culture - Preliminary Staphylococcus Aureus Resulted 08/15/17 10:08 Anaerobic Blood Culture - Preliminary Staphylococcus Aureus Resulted Result Diagram: 08/16/17 0350 08/16/17 0350 Imaging Last Impressions Chest X-Ray 08/15/17 0955 Signed Impressions: CONCLUSION: 1. No acute abnormality or significant interval change. Toe X-Ray 08/15/17 0000 Signed Impressions: CONCLUSION: Questionable small erosion distal phalanx right second toe. This could be infec tious in nature if there is clinical evidence for soft tissue infection. Renal Ultrasound 08/15/17 Signed Impressions: CONCLUSION: 1. No hydronephrosis. 2. Increased echogenicity most characteristic of medical renal disease. Foot MRI 08/15/17 0000 Signed Impressions: CONCLUSION: 1. No evidence for osteomyelitis. Soft tissue swelling at the second toe. Assessment and Plan Assessment and Plan Sepsis (leucocytosis, tachycardia, lactic acidemia) Staph aureus bacteremia likely secondary to Right 2nd toe cellulitis, osteomyelitis. Right 2nd toe cellulitis, osteomyelitis. Hepatitis C antibody positive. AICD status. CAD with severe ischemic cardiomyopathy. Recs Continue Zosyn IV for now Continue Vanco IV (target 15-20 for bacteremia and possible osteomyelitis) Reviewed note: will need digit amputation. Await vascular studies. Will likely need Vascular consult as pulses diminished and concern for gangrene. Check CRP Check HIV screen Check Hepatitis profile. Follow cultures to adjust antibiotics. Follow clinically. to cover for me this weekend. Michelle Galan MD August 16, 2017 16:04
[2017-08-16] MEDS: HEPARIN-D5W 25,000 U/250 ML 250 ML IV PRN (16:19)
--- NOTE | 2017-08-16 17:39 | HHI.NPPN ---
Subjective History of Present Illness Patient is a 57-year-old with ischemic cardiomyopathy, diabetes, came in right toe infection Review of Systems Musculoskeletal MS: Pain/Stiffness Objective Data Data 08/16/17 08/17/17 19:00 07:00 Intake Total 565 ml Balance 565 ml Intake IV Total 565 ml Vital Signs Date Time Temp Pulse Resp B/P (MAP) Pulse Ox O2 Delivery O2 Flow Rate FiO2 08/16/17 17:05 98.9 100 16 129/74 (92) 97 Nasal Cannula 2.00 08/16/17 15:15 98.0 105 15 123/69 (87) 98 Nasal Cannula 2.00 08/16/17 14:15 97.8 98 20 118/72 (87) 97 Nasal Cannula 2.00 08/16/17 09:34 98.0 95 18 106/64 (78) 97 Nasal Cannula 2.00 08/16/17 07:45 96 21 08/16/17 07:30 98.0 90 17 107/69 (82) 96 Room Air 08/16/17 07:10 96 18 99 Nasal Cannula 2.00 08/16/17 06:06 92 18 107/69 (82) 98 Nasal Cannula 2.00 08/16/17 05:30 96 20 87/50 (62) 100 Nasal Cannula 2.00 08/16/17 03:34 95 26 94/60 (71) 100 Nasal Cannula 2.00 08/16/17 02:42 118 34 121/61 (81) 100 Nasal Cannula 2.00 08/16/17 02:29 100.1 155 36 101/54 (70) Nasal Cannula 2.00 08/16/17 02:00 113 18 127/74 (91) 96 Nasal Cannula 2.00 08/16/17 01:00 95 16 95/54 (68) 97 Nasal Cannula 2.00 08/15/17 23:00 85 16 94/59 (71) 96 Nasal Cannula 2.00 08/15/17 22:00 98.1 86 16 96/59 (71) 97 Nasal Cannula 2.00 08/15/17 20:00 94 18 92/58 (69) 97 Nasal Cannula 2.00 08/15/17 19:08 93 16 89/58 (68) 100 Nasal Cannula 2.00 08/15/17 18:00 98 18 97/59 (72) 97 Nasal Cannula 2.00 -: 08/16/17 0350 08/16/17 0350 Microbiology 08/16/17 Aerobic Blood Culture, Received Pending 08/16/17 Anaerobic Blood Culture, Received Pending 08/16/17 Aerobic Blood Culture, Received Pending 08/16/17 Anaerobic Blood Culture, Received Pending Physical Exam General Appearance: Well Developed, Well Nourished Neck Neck Exam: Neck Supple Pulmonary Resp Exam: Clear Bilaterally, Breath Sounds Equal Cardiology CV Exam: Regular, Normal Sinus Rhythm Gastrointestinal/Abdomen GI Exam: Soft, Non-Tender, Bowel Sounds Present Integumentary Skin Exam: Lesion(s) Extremeties Extremities Exam: Trace Edema Assessment/Plan Problem List: (1) Acute renal failure ICD Codes: N17.9 - Acute kidney failure, unspecified Plan: Patient has her creatinine this could be the result of underlying sepsis and gangrene of the toe, he also has cardiomyopathy which can cause cardiorenal syndrome Patient is maintaining urine output Kidney ultrasound showed increased echogenicity Creatinine declined to 1.21 Nephrology to follow as needed (2) Severe sepsis ICD Codes: A41.9 - Sepsis, unspecified organism; R65.20 - Severe sepsis without septic shock Plan: Patient is on antibiotic vancomycin and Zosyn monitor vancomycin levels Staph aureus positive in cultures (3) gangrene of the right second toe Plan: Started on IV antibiotics as above (4) Cardiomyopathy ICD Codes: I42.9 - Cardiomyopathy, unspecified Plan: EF of 25% and AICD in place (5) Diabetes mellitus ICD Codes: E11.9 - Type 2 diabetes mellitus without complications Plan: Monitor blood glucose Fantasma Jones MD August 16, 2017 17:39
--- NOTE | 2017-08-16 19:43 | EKG ---
Date Performed: 08/16/2017 Time Performed: 02:31:45 PTAGE: 57 years EKG: ATRIAL FIBRILLATION WITH RAPID VENTRICULAR RESPONSE ST DEVIATION AND MODERATE T-WAVE ABNORM ALITY, CONSIDER LATERAL ISCHEMIA ABNORMAL ECG Compared to PREVIOUS TRACING , the patient is in afib with rapid ventricular rate. PREVIOUS TRACIN08/15/2017 11.30 DOCTOR: Alice Wilkinson Interpretating Date/Time 08/16/2017 19:41:15
[2017-08-16] MEDS: ACETAMINOPHEN 325 MG TAB PO PRN (20:09)
[2017-08-16] MEDS: INSULIN DETEMIR 100 UNITS/ML VIAL SQ SCH (21:26)
[2017-08-16] MEDS: SODIUM CHLORIDE 0.9% FLUSH 10 ML FLUSH IVF PRN (21:28)
[2017-08-17] VITALS (27 sets, daily range): BP systolic 100–123; BP diastolic 57–76; PULSE 84–212; RESP 16–20; TEMP 97.6–98.4; O2SAT 95–100
[2017-08-17] MEDS ORDERED: VANCOMYCIN 1,000 MG/NS 250 ML IV SCH ×2 (02:00)
[2017-08-17] MEDS ORDERED: guaiFENesin/CODEINE SYRUP 200 MG/20 MG/10 ML CUP PO PRN (03:00)
[2017-08-17 03:04] LABS: AUTOMATED NEUTROPHIL # 11.2 TH/MM3 (1.8-7.7); BASOPHIL % 0.2 % (0.0-2.0); EOSINOPHIL # 0.1 TH/MM3 (0-0.4); EOSINOPHIL % 0.8 % (0.0-4.0); HEMATOCRIT 42.9 % (39.0-51.0); HEMOGLOBIN 14.5 GM/DL (13.0-17.0); LYMPH % 4.6 % (9.0-44.0); LYMPHOCYTE # 0.6 TH/MM3 (1.0-4.8); MEAN CELL VOLUME 81.5 FL (80.0-100.0); MEAN CORPUSCULAR HEMOGLOBIN 27.5 PG (27.0-34.0); MEAN CORPUSCULAR HGB CONC 33.7 % (32.0-36.0); MONO % 9.5 % (0.0-8.0); MONOCYTE # 1.2 TH/MM3 (0-0.9); NEUT % 84.9 % (16.0-70.0); PLATELET COUNT 69 TH/MM3 (150-450); RED BLOOD COUNT 5.26 MIL/MM3 (4.50-5.90); RED CELL DISTRIBUTION WIDTH 17.2 % (11.6-17.2); WHITE BLOOD COUNT 13.2 TH/MM3 (4.0-11.0)
[2017-08-17] MEDS: ACETAMINOPHEN 325 MG TAB PO PRN (03:07)
--- NOTE | 2017-08-17 03:09 | HHI.FPPN ---
Addendum to progress note ADDENDUM Reason for addendum: Additonal documentation Additional information S: Jeffery Kitchen and Lucille were paged at 0205AM for a [facility] at [facility]. Both residents responded to bedside where the pt, a 57YO male who presented with NSTEMI, CHF exacerbation, non-revascularizable CAD, CABGx3, AICD placement by Dr Aguirre in May 2017, with sepsis 2/2 MRSA bacteremia due likely to right 2nd toe gangrene and DM was breathing at an increased rate and complaining of SOB. Pt stated he was sleeping and began to feel chills and then began to cough and then he said it felt like someone kicked him in the side of the head several times and then he was short of breath and shivering, trying to catch his breath. The nurse brought in a tele strip showing monomorphic V-tach waveform followed by 6-8 large artifacts on tele (likely his AICD firing), followed by restoral of NSR. During time in the pt's room he stated he was SOB but w/o CPs or palpitations, N/V. He could follow commands. O: VS: T - 97.7 / HR 123 / BP 139/62 / RR 32 Vital Signs Date Time Temp Pulse Resp B/P (MAP) Pulse Ox O2 Delivery O2 Flow Rate FiO2 08/16/17 23:00 106 20 122/75 (91) 100 08/16/17 21:10 98.3 08/16/17 19:00 Room Air 08/16/17 17:05 2.00 08/16/17 07:45 21 GENERAL: Well-nourished, well-developed patient in respiratory distress. SKIN: Cool and dry. HEAD: Normocephalic. EYES: No scleral icterus. No injection or drainage. NECK: Supple, trachea midline. No lymphadenopathy. CARDIOVASCULAR: Tachycardia with regular rhythm without murmurs, gallops, or rubs. RESPIRATORY: Distant left lung sounds; right lung inspiratory squeak. Accessory muscle use that resolved during the exam. GASTROINTESTINAL: Abdomen soft, non-tender, nondistended. EXTREMITIES: No cyanosis or edema. Extremities cool to touch. Right 2nd toe is grayish black and wrapped in a sterile dressing. Peripheral pulses thready and weak. NEUROLOGICAL: Awake, alert, and oriented x 3. Non-focal. Normal neurological exam w/sports coordinator II-XII intact. A/P: 57YO male with NSTEMI, CHF exacerbation, recent AICD, DM who presented with sepsis 2/2 MRSA bacteremia and gangrene of right 2nd toe had an episode of monomorphic v-tach which stimulated AICD discharge to restore normal sinus rhythm. Pt has little/no cardiac reserve and cough, other stress can trigger arrhythmia. -EKG -Plan for CXR and lactate cancelled as pt improved quickly -Interrogate AICD in the morning -Tessalon perles 100mg q6h PRN -Guaifenisen w/codeine 10ml q6h PRN George Adkins MD R1 August 17, 2017 03:09
[2017-08-17 03:27] LABS: BICARBONATE 20.1 MEQ/L (21.0-32.0); CALCIUM 8.3 MG/DL (8.5-10.1); CREATININE 1.16 MG/DL (0.60-1.30)
[2017-08-17 03:36] LABS: BANDS 3 % (0-6); CORRECTED NUCLEATED RBC 1 /100 WBC (0-0); LYMPHOCYTES 5 % (9-44); MONOCYTES 4 % (0-8); NUCLEATED RED BLOOD CELL 1 (0-0); POLYS (SEG NEUTROPHILS) 88 % (16-70)
[2017-08-17 03:37] LABS: TOXIC VACUOLATION PRESENT (NONE SEEN)
[2017-08-17] MEDS: BENZONATATE 100 MG CAP PO PRN ×2 (03:42→11:45)
[2017-08-17] MEDS: PIPERACIL-TAZO 2.25 GM PREMIX 50 ML IV SCH ×3 (05:56→17:02)
[2017-08-17] MEDS: INSULIN ASPART SUPPLEMENTAL SCALE SQ SCH ×4 (08:00→21:35)
[2017-08-17] MEDS: PRAVASTATIN SOD 40 MG TAB PO SCH (09:05)
[2017-08-17] MEDS: FAMOTIDINE 20 MG TAB PO SCH ×2 (09:05→21:32)
[2017-08-17] MEDS: MAGNESIUM SULFATE 1 GM PREMIX 100 ML IV SCH ×2 (09:05→09:45)
[2017-08-17] MEDS: ASPIRIN EC 81 MG TABEC PO SCH (09:05)
--- NOTE | 2017-08-17 11:21 | PD.CARD.PN ---
Subjective Subjective Remarks vt last night, netta called, appears comfortable in nad this am Objective Medications Current Medications Medications (Trade) Dose Ordered Sig/Erika Route Start Time Stop Time Status Last Admin (NS Flush) 2 ml UNSCH PRN IVF 08/15/17 10:00 08/16/17 21:28 Heparin Sodium/ Dextrose 250 ml @ 10 mls/hr TITRATE PRN IV 08/15/17 11:45 08/16/17 16:19 (D50w (Vial) Inj) 50 ml UNSCH PRN IV PUSH 08/15/17 13:30 (Glucagon Inj) 1 mg UNSCH PRN OTHER 08/15/17 13:30 (NovoLOG SUPPLEMENTAL SCALE) 1 ACHS SLIDING SCALE SQ 08/15/17 17:00 08/16/17 21:26 Sodium Chloride 1,000 ml @ 60 mls/hr [id number] IV 08/15/17 13:30 08/15/17 18:23 Piperacillin Sod/ Tazobactam Sod 50 ml @ 100 mls/hr Q6H IV 08/15/17 18:00 08/17/17 11:15 Pharmacy Profile Note 0 ml @ 0 mls/hr UNSCH OTHER 08/15/17 13:30 (Ecotrin Ec) 162 mg DAILY PO 08/16/17 09:00 08/17/17 09:05 (Pepcid) 20 mg BID PO 08/15/17 21:00 08/17/17 09:05 (Pravachol) 40 mg DAILY PO 08/16/17 09:00 08/17/17 09:05 (Duoneb Neb) 1 ampule Q4HR NEB PRN NEB 08/15/17 13:45 08/15/17 15:38 (Tylenol) 650 mg Q4H PRN PO 08/15/17 14:30 08/17/17 03:07 ([place] 5-325 Mg) 1 tab Q4H PRN PO 08/15/17 14:30 08/15/17 15:18 (Reglan Inj) 5 mg Q6H PRN IV PUSH 08/16/17 02:30 08/16/17 20:10 (Zofran Odt) 4 mg Q6H PRN PO 08/16/17 02:30 (Lopressor Inj) 5 mg Q5M PRN IV PUSH 08/16/17 02:45 08/16/17 03:06 (Levemir Inj) 10 units HS SQ 08/16/17 21:00 08/16/17 21:26 Vancomycin HCl 1000 mg/Sodium Chloride 250 ml @ 250 mls/hr Q12H IV 08/17/17 02:00 08/17/17 01:06 ([facility] [place] [facility] Ordered Lab Info) SPECIFIC LAB TO BE SHERRON... ONCE ONCE .XX 08/18/17 13:45 08/18/17 13:46 (Tessalon) 100 mg TID PRN PO 08/17/17 03:00 08/17/17 03:42 (Robitussin Ac 200-20 Mg/10 ml Liq) 10 ml Q6H PRN PO 08/17/17 03:00 Vital Signs / I&O Vital Signs Date Time Temp Pulse Resp B/P (MAP) Pulse Ox O2 Delivery O2 Flow Rate FiO2 08/17/17 11:17 99 Nasal Cannula 2.00 08/17/17 08:00 99 08/17/17 08:00 98.3 96 18 123/76 (92) 98 08/17/17 06:00 96 08/17/17 05:00 92 08/17/17 04:00 110 08/17/17 03:30 116 20 100/71 (81) 98 08/17/17 03:00 122 08/17/17 02:10 212 08/17/17 02:07 181 08/17/17 02:06 167 08/17/17 02:04 100 3.00 08/17/17 02:00 100 Nasal Cannula 3.00 08/17/17 02:00 100 3.00 08/17/17 02:00 120 08/17/17 01:00 160 08/17/17 00:00 104 08/16/17 23:00 106 20 122/75 (91) 100 08/16/17 23:00 117 08/16/17 22:00 104 08/16/17 21:16 111 08/16/17 21:10 98.3 110 20 114/80 (91) 99 08/16/17 20:59 08/16/17 19:00 107 18 143/83 (103) 95 Room Air 08/16/17 17:05 98.9 100 16 129/74 (92) 97 Nasal Cannula 2.00 08/16/17 15:15 98.0 105 15 123/69 (87) 98 Nasal Cannula 2.00 08/16/17 14:15 97.8 98 20 118/72 (87) 97 Nasal Cannula 2.00 I/O 08/16/17 08/16/17 08/16/17 08/17/17 08/17/17 08/17/17 07:00 15:00 23:00 07:00 15:00 23:00 Intake Total 613.5 ml 565 ml 590 ml Output Total 1200 ml Balance -586.5 ml 565 ml 590 ml Intake Oral 240 ml IV Total 613.5 ml 565 ml 350 ml Output Urine Total 1200 ml # Voids 1 1 # Bowel Movements 0 1 Physical Exam GENERAL: SKIN: Warm and dry. HEAD: Normocephalic. EYES: No scleral icterus. No injection or drainage. NECK: Supple, trachea midline. No JVD or lymphadenopathy. CARDIOVASCULAR: Regular rate and rhythm without murmurs, gallops, or rubs. RESPIRATORY: Breath sounds equal bilaterally. No accessory muscle use. GASTROINTESTINAL: Abdomen soft, non-tender, nondistended. MUSCULOSKELETAL: No cyanosis, or edema. BACK: Nontender without obvious deformity. No CVA tenderness. Laboratory Laboratory Tests Test 08/16/17 11:35 08/16/17 13:10 08/16/17 16:30 08/16/17 19:35 Lactic Acid Level 2.4 mmol/L Activated Partial Thromboplast Time 28.7 SEC 23.9 SEC Hepatitis A IgM Antibody NONREACTIVE Hepatitis B Surface Antigen NONREACTIVE Hepatitis B Core IgM Antibody NONREACTIVE Hepatitis C IgG Antibody REACTIVE HIV (1&2) Ab and P24 Ag, 4th Gener NONREACTIVE Test 08/17/17 02:54 08/17/17 09:10 08/17/17 09:50 White Blood Count 13.2 TH/MM3 Red Blood Count 5.26 MIL/MM3 Hemoglobin 14.5 GM/DL Hematocrit 42.9 % Mean Corpuscular Volume 81.5 FL Mean Corpuscular Hemoglobin 27.5 PG Mean Corpuscular Hemoglobin Concent 33.7 % Red Cell Distribution Width 17.2 % Platelet Count 69 TH/MM3 Mean Platelet Volume 10.0 FL Neutrophils (%) (Auto) 84.9 % Lymphocytes (%) (Auto) 4.6 % Monocytes (%) (Auto) 9.5 % Eosinophils (%) (Auto) 0.8 % Basophils (%) (Auto) 0.2 % Neutrophils # (Auto) 11.2 TH/MM3 Lymphocytes # (Auto) 0.6 TH/MM3 Monocytes # (Auto) 1.2 TH/MM3 Eosinophils # (Auto) 0.1 TH/MM3 Basophils # (Auto) 0.0 TH/MM3 CBC Comment AUTO DIFF Differential Total Cells Counted 100 Neutrophils % (Manual) 88 % Band Neutrophils % 3 % Lymphocytes % 5 % Monocytes % 4 % Neutrophils # (Manual) 12.0 TH/MM3 Nucleated Red Blood Cells 1 /100 WBC Differential Comment FINAL DIFF MANUAL Toxic Vacuolation PRESENT Platelet Estimate LOW Platelet Morphology Comment NORMAL Activated Partial Thromboplast Time 32.2 SEC 36.9 SEC Blood Urea Nitrogen 39 MG/DL Creatinine 1.16 MG/DL Random Glucose 245 MG/DL Calcium Level 8.3 MG/DL Sodium Level 139 MEQ/L Potassium Level 3.7 MEQ/L Chloride Level 103 MEQ/L Carbon Dioxide Level 20.1 MEQ/L Anion Gap 16 MEQ/L Estimat Glomerular Filtration Rate 64 ML/MIN B-Type Natriuretic Peptide 632 PG/ML Assessment and Plan Problem List: (1) ARF (acute renal failure) ICD Codes: N17.9 - Acute kidney failure, unspecified (2) NSTEMI (non-ST elevated myocardial infarction) ICD Codes: I21.4 - Non-ST elevation (NSTEMI) myocardial infarction (3) CAD (coronary artery disease) ICD Codes: I25.10 - Atherosclerotic heart disease of [place] coronary artery without angina pectoris (4) Decreased cardiac ejection fraction ICD Codes: R93.1 - Abnormal findings on diagnostic imaging of heart and coronary circulation (5) Elevated troponin ICD Codes: R74.8 - Abnormal levels of other serum enzymes (6) Severe sepsis ICD Codes: A41.9 - Sepsis, unspecified organism; R65.20 - Severe sepsis without septic shock (7) Diabetes mellitus ICD Codes: E11.9 - Type 2 diabetes mellitus without complications (8) Acute renal failure ICD Codes: N17.9 - Acute kidney failure, unspecified (9) Cardiomyopathy ICD Codes: I42.9 - Cardiomyopathy, unspecified (10) gangrene of the right second toe (11) Dyspnea and respiratory abnormalities ICD Codes: R06.00 - Dyspnea, unspecified; R06.89 - Other abnormalities of breathing (12) Multi-vessel coronary artery stenosis ICD Codes: I25.10 - Atherosclerotic heart disease of [place] coronary artery without angina pectoris (13) Hx of CABG ICD Codes: Z95.1 - Presence of aortocoronary bypass graft Assessment and Plan 1.) Ischemic cardiomyopathy - nstemi, chf excacerbation and arf due to severe unrevascularizable cad, cardiomyopathy and high metabolic demand from sepsis, clinically improving on iv heparin, aspirin and antibiotics, noncardica procedure is high risk due to multiple unstable comorbidities and nstemi 2.) VT - replete electrolytes, beta blockers held due to persistent decompensated chf, could consider amio but he has significant copd as well, bnp > 600 today; d/w case management further attempts to insure and obtain eligibility for referral to heart transplant center Garrett Henao MD August 17, 2017 11:21
--- NOTE | 2017-08-17 11:24 | HHI.IDPN ---
Subjective Subjective Remarks is a 57 y/o CM with PMHx of CHF, Ischemic Cardiomyopathy with last reported EF 20-25%, he has prior h/o CABG x 3, defibrillator and pacemaker, DM, HTN and hyperlipidemia. CT surgery evaluated and found him not to be a revascularization candidate and recommended referral to a tertiary center for transplant consideration. As the patient has no insurance this option has not been found feasible. He underwent placement of a single-chamber [place] ICD in May 2017 for sudden cardiac prevention. With this background patient presents to the ED at [facility] with 4 day history of progressive dyspnea described as severe, worsening with exertion, and improved with rest. He has had associated symptoms of diaphoresis, nausea and vomiting over the weekend. He additionally has noted painful changes in his right second toe with color changes suspicious for infection. In ED patient was noted to have WBC 9.6, hemoglobin 15.0, hematocrit 43.9, platelets 133, sodium 130, potassium 4.4, BUN 36, creatinine 1.84, random glucose 407 alkaline phosphatase 114, AST 37, ALT 25, total bilirubin 0.9, troponin 3.04, C-reactive protein 26.8, B natruretic peptide 3148, lactic acid 5.5. Ax Xray of Rt toe showed erosion. MRI with no osteomyelitis. Chest x-ray showed no acute abnormality or significant interval change. 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 He states that he is only able to be active for 5-10 minutes before becoming very dyspneic and exhausted. 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 He is now attempting to get disability as he has a nearly homebound existence and requires assistance to get out to doctor's appointments. Sepsis workup on admission positive for Staph bacteremia and ID consulted for evaluation and Mment of the same. Notes reviewed Temps ok All with Staph aureus Podiatry and vascular following for gangrene of his R 2nd toe Has cardiomyopathy S/P ICD placement May 2017 Has not had any problem with his ICD until in hospital Has fired since here Antibiotics Current Medications Medications (Trade) Dose Ordered Sig/Erika Route Start Time Stop Time Status Last Admin (NS Flush) 2 ml UNSCH PRN IVF 08/15/17 10:00 08/16/17 21:28 Heparin Sodium/ Dextrose 250 ml @ 10 mls/hr TITRATE PRN IV 08/15/17 11:45 08/16/17 16:19 (D50w (Vial) Inj) 50 ml UNSCH PRN IV PUSH 08/15/17 13:30 (Glucagon Inj) 1 mg UNSCH PRN OTHER 08/15/17 13:30 (NovoLOG SUPPLEMENTAL SCALE) 1 ACHS SLIDING SCALE SQ 08/15/17 17:00 08/16/17 21:26 Sodium Chloride 1,000 ml @ 60 mls/hr [id number] IV 08/15/17 13:30 08/15/17 18:23 Piperacillin Sod/ Tazobactam Sod 50 ml @ 100 mls/hr Q6H IV 08/15/17 18:00 08/17/17 05:56 Pharmacy Profile Note 0 ml @ 0 mls/hr UNSCH OTHER 08/15/17 13:30 (Ecotrin Ec) 162 mg DAILY PO 08/16/17 09:00 08/17/17 09:05 (Pepcid) 20 mg BID PO 08/15/17 21:00 08/17/17 09:05 (Pravachol) 40 mg DAILY PO 08/16/17 09:00 08/17/17 09:05 (Duoneb Neb) 1 ampule Q4HR NEB PRN NEB 08/15/17 13:45 08/15/17 15:38 (Tylenol) 650 mg Q4H PRN PO 08/15/17 14:30 08/17/17 03:07 ([place] 5-325 Mg) 1 tab Q4H PRN PO 08/15/17 14:30 08/15/17 15:18 (Reglan Inj) 5 mg Q6H PRN IV PUSH 08/16/17 02:30 08/16/17 20:10 (Zofran Odt) 4 mg Q6H PRN PO 08/16/17 02:30 (Lopressor Inj) 5 mg Q5M PRN IV PUSH 08/16/17 02:45 08/16/17 03:06 (Levemir Inj) 10 units HS SQ 08/16/17 21:00 08/16/17 21:26 Vancomycin HCl 1000 mg/Sodium Chloride 250 ml @ 250 mls/hr Q12H IV 08/17/17 02:00 08/17/17 01:06 ([facility] [place] [facility] Ordered Lab Info) SPECIFIC LAB TO BE .. ONCE ONCE .XX 08/18/17 13:45 08/18/17 13:46 (Tessalon) 100 mg TID PRN PO 08/17/17 03:00 08/17/17 03:42 (Robitussin Ac 200-20 Mg/10 ml Liq) 10 ml Q6H PRN PO 08/17/17 03:00 Lines PIV no evidence of infection Past Medical History Severe ischemic cardiomyopathy EF 20-25% Hyperlipidemia Diabetes Coronary artery disease status post [place] 06/04 COPD Past Surgical History CABG 10 years ago Pacemaker/Defibrillator insertion Appendectomy Skin graft to right foot as a child Back surgeries 3 has hardware in back per report. Allergies: Coded Allergies: iodine (Unverified Allergy, Severe, Swelling, 06/12/17) potassium iodide (Unverified Allergy, Severe, Swelling, 06/12/17) povidone-iodine (Unverified Allergy, Severe, Swelling, 06/12/17) shellfish derived (Unverified Allergy, Severe, 06/12/17) sodium iodide (Unverified Allergy, Severe, Swelling, 06/12/17) sodium iodide (Unverified Allergy, Severe, Swelling, 06/12/17) Objective . Vital Signs Date Time Temp Pulse Resp B/P (MAP) Pulse Ox O2 Delivery O2 Flow Rate FiO2 08/17/17 08:00 99 08/17/17 08:00 98.3 96 18 123/76 (92) 98 08/17/17 06:00 96 08/17/17 05:00 92 08/17/17 04:00 110 08/17/17 03:30 116 20 100/71 (81) 98 08/17/17 03:00 122 08/17/17 02:10 212 08/17/17 02:07 181 08/17/17 02:06 167 08/17/17 02:04 100 3.00 08/17/17 02:00 100 Nasal Cannula 3.00 08/17/17 02:00 100 3.00 08/17/17 02:00 120 08/17/17 01:00 160 08/17/17 00:00 104 08/16/17 23:00 106 20 122/75 (91) 100 08/16/17 23:00 117 08/16/17 22:00 104 08/16/17 21:16 111 08/16/17 21:10 98.3 110 20 114/80 (91) 99 08/16/17 20:59 08/16/17 19:00 107 18 143/83 (103) 95 Room Air 08/16/17 17:05 98.9 100 16 129/74 (92) 97 Nasal Cannula 2.00 08/16/17 15:15 98.0 105 15 123/69 (87) 98 Nasal Cannula 2.00 08/16/17 14:15 97.8 98 20 118/72 (87) 97 Nasal Cannula 2.00 . Laboratory Tests Test 08/15/17 18:32 08/16/17 03:50 08/17/17 02:54 White Blood Count 13.0 TH/MM3 11.1 TH/MM3 13.2 TH/MM3 Red Blood Count 5.34 MIL/MM3 5.37 MIL/MM3 5.26 MIL/MM3 Hemoglobin 14.5 GM/DL 14.7 GM/DL 14.5 GM/DL Hematocrit 43.6 % 43.8 % 42.9 % Mean Corpuscular Volume 81.7 FL 81.5 FL 81.5 FL Mean Corpuscular Hemoglobin 27.1 PG 27.3 PG 27.5 PG Mean Corpuscular Hemoglobin Concent 33.2 % 33.5 % 33.7 % Red Cell Distribution Width 17.5 % 17.2 % 17.2 % Platelet Count 105 TH/MM3 86 TH/MM3 69 TH/MM3 Mean Platelet Volume 9.2 FL 10.0 FL 10.0 FL Neutrophils (%) (Auto) 86.1 % 84.9 % Lymphocytes (%) (Auto) 3.1 % 4.6 % Monocytes (%) (Auto) 9.4 % 9.5 % Eosinophils (%) (Auto) 1.3 % 0.8 % Basophils (%) (Auto) 0.1 % 0.2 % Neutrophils # (Auto) 9.6 TH/MM3 11.2 TH/MM3 Lymphocytes # (Auto) 0.3 TH/MM3 0.6 TH/MM3 Monocytes # (Auto) 1.0 TH/MM3 1.2 TH/MM3 Eosinophils # (Auto) 0.1 TH/MM3 0.1 TH/MM3 Basophils # (Auto) 0.0 TH/MM3 0.0 TH/MM3 CBC Comment AUTO DIFF AUTO DIFF Differential Total Cells Counted 100 100 Neutrophils % (Manual) 60 % 88 % Band Neutrophils % 32 % 3 % Lymphocytes % 1 % 5 % Monocytes % 7 % 4 % Neutrophils # (Manual) 10.2 TH/MM3 12.0 TH/MM3 Differential Comment FINAL DIFF MANUAL FINAL DIFF MANUAL Platelet Estimate LOW LOW Platelet Morphology Comment NORMAL NORMAL Red Cell Morphology Comment NORMAL Nucleated Red Blood Cells 1 /100 WBC Toxic Vacuolation PRESENT Laboratory Tests Test 08/15/17 18:32 08/15/17 22:05 08/16/17 03:50 08/16/17 11:35 Lactic Acid Level 3.1 mmol/L 2.4 mmol/L Troponin I 3.94 NG/ML 2.93 NG/ML Blood Urea Nitrogen 46 MG/DL Creatinine 1.21 MG/DL Random Glucose 249 MG/DL Total Protein 6.7 GM/DL Albumin 2.6 GM/DL Calcium Level 8.6 MG/DL Phosphorus Level 2.4 MG/DL Alkaline Phosphatase 98 U/L Aspartate Amino Transf (AST/SGOT) 40 U/L Alanine Aminotransferase (ALT/SGPT) 27 U/L Total Bilirubin 0.7 MG/DL Sodium Level 135 MEQ/L Potassium Level 3.9 MEQ/L Chloride Level 102 MEQ/L Carbon Dioxide Level 16.5 MEQ/L Anion Gap 17 MEQ/L Estimat Glomerular Filtration Rate 61 ML/MIN C-Reactive Protein 22.00 MG/DL Test 08/17/17 02:54 08/17/17 09:50 Blood Urea Nitrogen 39 MG/DL Creatinine 1.16 MG/DL Random Glucose 245 MG/DL Calcium Level 8.3 MG/DL Sodium Level 139 MEQ/L Potassium Level 3.7 MEQ/L Chloride Level 103 MEQ/L Carbon Dioxide Level 20.1 MEQ/L Anion Gap 16 MEQ/L Estimat Glomerular Filtration Rate 64 ML/MIN B-Type Natriuretic Peptide 632 PG/ML Microbiology Date/Time Source Procedure Growth Status 08/16/17 16:33 Blood Peripheral Aerobic Blood Culture - Preliminary Gram Positive Cocci Resulted 08/16/17 16:33 Blood Peripheral Anaerobic Blood Culture - Preliminary NO GROWTH IN 1 DAY Resulted 08/16/17 16:15 Blood Peripheral Aerobic Blood Culture - Preliminary Gram Positive Cocci Resulted 08/16/17 16:15 Blood Peripheral Anaerobic Blood Culture - Preliminary NO GROWTH IN 1 DAY Resulted 08/15/17 10:08 Blood Peripheral Aerobic Blood Culture - Preliminary Staphylococcus Aureus Resulted 08/15/17 10:08 Anaerobic Blood Culture - Preliminary Staphylococcus Aureus Resulted 08/15/17 10:00 Blood Peripheral Aerobic Blood Culture - Final Staphylococcus Aureus Complete 08/15/17 10:00 Anaerobic Blood Culture - Final Staphylococcus Aureus Complete Imaging Last Impressions Chest X-Ray 08/15/17 0955 Signed Impressions: CONCLUSION: 1. No acute abnormality or significant interval change. Toe X-Ray 08/15/17 0000 Signed Impressions: CONCLUSION: Questionable small erosion distal phalanx right second toe. This could be infec tious in nature if there is clinical evidence for soft tissue infection. Renal Ultrasound 08/15/17 Signed Impressions: CONCLUSION: 1. No hydronephrosis. 2. Increased echogenicity most characteristic of medical renal disease. Foot MRI 08/15/17 Signed Impressions: CONCLUSION: 1. No evidence for osteomyelitis. Soft tissue swelling at the second toe. Physical Exam GENERAL: Awake and alert, NAD SKIN: No rashes or lesions. Cool and dry. HEAD: Atraumatic. Normocephalic. No temporal or scalp tenderness. EYES: Pupils equal round and reactive. Extraocular motions intact. No scleral icterus. No injection or drainage. ENT: Nose without bleeding, purulent drainage or septal hematoma. Throat without erythema, tonsillar hypertrophy or exudate. Uvula midline. Airway patent. NECK: Trachea midline. Supple, nontender, no meningeal signs. CARDIOVASCULAR: HS audible. ICD, has mild pink color on his L chest, not indurated, seems swollen, not tender, has well healed incision RESPIRATORY: Clear to auscultation. Breath sounds equal bilaterally. No wheezes , rales, or rhonchi. GASTROINTESTINAL: Abdomen soft, non-tender, nondistended. MUSCULOSKELETAL: Has wet gangrene Right 2nd toe with erythema on dorsum of his foot. NEUROLOGICAL: Grossly noon-focal. Psych cooperative IV line sites with no e.o infection. Assessment & Plan Remarks High grade MSSA Sepsis (leucocytosis, tachycardia, lactic acidemia) - source ?2nd toe, concern with ICD Right 2nd toe gwet gangrene, osteomyelitis. Hepatitis C antibody positive. AICD status. CAD with severe ischemic cardiomyopathy. Recs Continue Zosyn IV for now IV Ancef Repeat BC to document clearing Echo May need CARA Podiatry following Follow C/S Monitor progress Explained plan to the patient Dona Hughes MD August 17, 2017 11:24
[2017-08-17] MEDS: ceFAZolin 2 GM PREMIX 50 ML IV SCH ×2 (11:45→21:32)
[2017-08-17] MEDS: SODIUM CHLOR 0.9% 1000 ML INJ 1,000 ML IV SCH (11:45)
[2017-08-17] MEDS: CARVEDILOL 6.25 MG TAB PO SCH ×2 (11:45→21:32)
--- NOTE | 2017-08-17 15:33 | EKG ---
Date Performed: 08/17/2017 Time Performed: 02:09:28 PTAGE: 57 years EKG: Sinus tachycardia with PAC(s). Extensive ST-T changes may be due to myocardial ischemia Abn ormal ECG Compared to PREVIOUS TRACING , the heart rate is much faster. ST-T changes are more prominent. Clinic al correlation is recommended. PREVIOUS TRACING DOCTOR: Yon Laureano Interpretating Date/Time 08/17/2017 15:33:06
--- NOTE | 2017-08-17 15:33 | EKG ---
Date Performed: 08/16/2017 Time Performed: 09:22:42 PTAGE: 57 years EKG: Sinus rhythm POSSIBLE LEFT ATRIAL ENLARGEMENT NONSPECIFIC ST & T-WAVE ABNORMALITY ABNORMAL ECG NO PREVIOUS TRACING DOCTOR: Yon Laureano Interpretating Date/Time 08/17/2017 15:32:13
--- NOTE | 2017-08-17 16:06 | HHI.PR ---
Subjective Remarks afebrile- telemetry in [facility] seen with family at bedside no fever or chills states started out as blister few days ago- now gangrenous last night- defibrillator fired Objective Vitals Vital Signs Date Time Temp Pulse Resp B/P (MAP) Pulse Ox O2 Delivery O2 Flow Rate FiO2 08/17/17 16:00 87 08/17/17 15:00 90 08/17/17 14:00 94 08/17/17 13:00 88 08/17/17 12:00 94 08/17/17 12:00 98.2 93 18 115/66 (82) 96 08/17/17 11:17 99 Nasal Cannula 2.00 08/17/17 11:00 84 08/17/17 10:00 90 08/17/17 09:00 92 08/17/17 08:00 99 08/17/17 08:00 98.3 96 18 123/76 (92) 98 08/17/17 07:00 96 08/17/17 06:00 96 08/17/17 05:00 92 08/17/17 04:00 110 08/17/17 03:30 116 20 100/71 (81) 98 08/17/17 03:00 122 08/17/17 02:10 212 08/17/17 02:07 181 08/17/17 02:06 167 08/17/17 02:04 100 3.00 08/17/17 02:00 100 Nasal Cannula 3.00 08/17/17 02:00 100 3.00 08/17/17 02:00 120 08/17/17 01:00 160 08/17/17 00:00 104 08/16/17 23:00 106 20 122/75 (91) 100 08/16/17 23:00 117 08/16/17 22:00 104 08/16/17 21:16 111 08/16/17 21:10 98.3 110 20 114/80 (91) 99 08/16/17 20:59 08/16/17 19:00 107 18 143/83 (103) 95 Room Air 08/16/17 17:05 98.9 100 16 129/74 (92) 97 Nasal Cannula 2.00 I/O 08/16/17 08/16/17 08/16/17 08/17/17 08/17/17 08/17/17 07:00 15:00 23:00 07:00 15:00 23:00 Intake Total 613.5 ml 565 ml 590 ml Output Total 1200 ml Balance -586.5 ml 565 ml 590 ml Intake Oral 240 ml IV Total 613.5 ml 565 ml 350 ml Output Urine Total 1200 ml # Voids 1 1 # Bowel Movements 0 1 Result Diagram: 08/17/17 0254 08/17/17 025 A/P Problem List: (1) Severe sepsis ICD Code: A41.9 - Sepsis, unspecified organism; R65.20 - Severe sepsis without septic shock (2) Elevated troponin ICD Code: R74.8 - Abnormal levels of other serum enzymes (3) gangrene of the right second toe Assessment and Plan A/P Severe sepsis due to gangrene/ infection of the right second toe Staph aureus bacteremia- continue check echo- may need CARA ID ff - on zosyn and Ancef Repeat BC to document clearing May need CARA Podiatry following Vascular surgery consulted Ischemic cardiomyopathy EF 25% - nstemi, chf excacerbation and arf due to severe unrevascularizable Debrillator fired las evening 5.25 NSTEMI with history of CAD- had cardiac cath two months ago with severe three vessel disease- was evaluated by CT surgery at the time with poor targets for redo sternotomy high metabolic demand from sepsis - continue electrolyte monitoring - ASA, Heparin drip, entrest, Coreg -acute kidney injury; improved- started on gentle IV hydration in light of cardiomyopathy- monitor renal function -thrombocytopenia- prob secondary to sepsis - will monitor closely while on Heparin drip - FF CBC -COPD with no exacerbation; neb treatment as needed. -diabetes mellitus; uncontrolled- hold oral hypoglycemics- start on accu-check with SSI. will add Levemir. -hypertension; will hold BP meds for now- continue to monitor. -DVT prophylaxis; on heparin drip. palliative care ff CM ff - assisting with transfer to a tertiary center for transplant-- no insurance, assisting us with Medicaid application Anahi Hess MD August 17, 2017 16:06
--- NOTE | 2017-08-17 19:46 | PD.CAR.PN ---
CVT Progress Note Subjective/Hospital Course: Patient seen full consult dictated Thanks J Objective: Vital Signs Date Time Temp Pulse Resp B/P (MAP) Pulse Ox O2 Delivery O2 Flow Rate FiO2 08/17/17 18:00 104 08/17/17 17:00 96 08/17/17 16:00 87 08/17/17 16:00 98.4 91 18 117/74 (88) 95 08/17/17 15:00 90 08/17/17 14:00 94 08/17/17 13:00 88 08/17/17 12:00 94 08/17/17 12:00 98.2 93 18 115/66 (82) 96 08/17/17 11:17 99 Nasal Cannula 2.00 08/17/17 11:00 84 08/17/17 10:00 90 08/17/17 09:00 92 08/17/17 08:00 99 08/17/17 08:00 98.3 96 18 123/76 (92) 98 08/17/17 07:00 96 08/17/17 06:00 96 08/17/17 05:00 92 08/17/17 04:00 110 08/17/17 03:30 116 20 100/71 (81) 98 08/17/17 03:00 122 08/17/17 02:10 212 08/17/17 02:07 181 08/17/17 02:06 167 08/17/17 02:04 100 3.00 08/17/17 02:00 100 Nasal Cannula 3.00 08/17/17 02:00 100 3.00 08/17/17 02:00 120 08/17/17 01:00 160 08/17/17 00:00 104 08/16/17 23:00 106 20 122/75 (91) 100 08/16/17 23:00 117 08/16/17 22:00 104 08/16/17 21:16 111 08/16/17 21:10 98.3 110 20 114/80 (91) 99 08/16/17 20:59 Labs: Laboratory Tests Test 08/17/17 09:10 08/17/17 09:50 08/17/17 15:47 Activated Partial Thromboplast Time 36.9 SEC (24.3-30.1) 36.6 SEC (24.3-30.1) B-Type Natriuretic Peptide 632 PG/ML (0-100) Result Diagram: 08/17/17 0254 08/17/17 025 (1) ARF (acute renal failure) (2) NSTEMI (non-ST elevated myocardial infarction) (3) CAD (coronary artery disease) (4) Decreased cardiac ejection fraction (5) Elevated troponin (6) Severe sepsis (7) Diabetes mellitus (8) Acute renal failure (9) Cardiomyopathy (10) gangrene of the right second toe (11) Dyspnea and respiratory abnormalities (12) Multi-vessel coronary artery stenosis (13) Hx of CABG Ivan Solomon MD August 17, 2017 19:46
--- NOTE | 2017-08-17 20:17 | MB ---
cc: Ivan Solomon MD, Slobodan MD DATE: 08/17/2017 REASON FOR CONSULTATION: Gangrene of the toes of the right foot, peripheral vascular disease. HISTORY OF PRESENT ILLNESS: This 57-year-old male who is a known vasculopath presents to the hospital at this time with about a 2-week history of change in color in his second and third toe of the right foot, which are now clearly gangrenous. Question arises about any vascular implications and possible remedies. This 57-year-old male has a complex medical history. He has an ejection fraction of 20-25% with ischemic cardiomyopathy, diabetes, hypertension, hyperlipidemia, COPD, and shortness of breath. PAST SURGICAL HISTORY: Three-vessel coronary artery bypass surgery in 2007, the this was followed by several catheterizations, the last one in 05/2017, which revealed 3-vessel disease including 80% stenosis LAD and this is all non-amenable to any further vascular reconstruction. The patient has now ischemic cardiomyopathy with severely impaired cardiac function. It should be noted that his defibrillator went off several times last night. MEDICATIONS: Can be found on the record. ALLERGIES: NONE SOCIAL HISTORY: The patient used to smoke until about 3 years ago, i.e., smoked through the bypass surgery and catheterizations and here is the result. He has been diabetic for many years. He was in the [employer] in [place] for about 3 years in the 70s. PHYSICAL EXAMINATION: GENERAL: Reveals a very pleasant 57-year-old gentleman. HEENT: Normocephalic. No trauma to the head. Pupils are equal, reactive. Extraocular muscles are intact. NECK: Bilateral carotid pulses. No bruits. CHEST: Bilateral breath sounds, decreased over both lungs consistent with moderate COPD. HEART: Regular rhythm. Defibrillator in the left subclavian area. ABDOMEN: Soft. Active bowel sounds. No rebound, no guarding, no masses. EXTREMITIES: The patient has palpable femoral pulses, palpable popliteal pulses and dopplerable dorsalis pedis and posterior tibial pulses bilateral. Left foot appears to be well perfused with good capillary refill. On the right side, the patient has limited changes to the second and third toe, which are clearly gangrenous and will need to be amputated, but the rest of the foot looks pretty much okay. The cellulitis has receded and phlegmonous changes have decreased. NEUROLOGIC: The patient's [place] coma scale is 15. Neurologically, he is fully intact with decreased sensation of both dorsi and plantar surfaces of the feet. IMPRESSION AND RECOMMENDATIONS: 1. This patient clearly has systemic vascular changes consistent with diabetes with decreased pulses in both legs below the level of the knee and consistent with a small vessel disease below the level of the ankles. The gangrene of the first 2 toes was probably due to trauma and swelling that patient did not even notice and then superimposed occlusion of the small vessels. In a few patients, this will occur also from distal embolization, but that is unlikely because the patient is on anticoagulants. I do not believe that his proximal inflow is compromised, but I do believe he probably has significant disease below the level of the knee, especially close to the ankles. At this point, it is a valid point to do a CT angiogram with runoff and see what this looks like. It should be noted that a patient with this degree of ejection fraction and coronary impairment is not a candidate for any major surgery more than absolutely necessary, but he may be okay for some balloon angioplasty distally. At this point, we will do CTA with runoff and see which way it goes. In addition, it should be noted the patient is relatively young and probably should be placed on a cardiac heart transplant list. I think much for the referral. We will continue to follow the patient. MD VIKA Miranda/ , 07:52 PM , 08:15 PM
[2017-08-17] MEDS: SACUBITRIL/VALSARTAN 49 MG-51 MG TAB PO SCH (21:32)
[2017-08-17] MEDS: INSULIN DETEMIR 100 UNITS/ML VIAL SQ SCH (21:33)
--- NOTE | 2017-08-17 23:39 | HHI.PR ---
Addendum to Inpatient Note Addendum Reason: Additional Documentation Additional Information Paged by RN for concern of low platelet count. Patient is currently on a heparin drip for elevated troponin, platelets have decreased from 105 to 69. Patient is also on zosyn for sepsis. Discussed with operations intelligence cardiology who agrees with holding the heparin drip. HIT AB ordered, and zosyn was changed to cefepime IV. Cont to monitor platelets. Masha Richey August 17, 2017 23:39
[2017-08-18] VITALS (24 sets, daily range): BP systolic 94–134; BP diastolic 57–81; PULSE 70–88; RESP 16–18; TEMP 97.4–97.9; O2SAT 95–98
[2017-08-18 05:37] LABS: HEMATOCRIT 40.3 % (39.0-51.0); HEMOGLOBIN 13.6 GM/DL (13.0-17.0); MEAN CELL VOLUME 80.5 FL (80.0-100.0); MEAN CORPUSCULAR HEMOGLOBIN 27.2 PG (27.0-34.0); MEAN CORPUSCULAR HGB CONC 33.7 % (32.0-36.0); MEAN PLATELET VOLUME 10.7 FL (7.0-11.0); PLATELET COUNT 64 TH/MM3 (150-450); RED CELL DISTRIBUTION WIDTH 17.4 % (11.6-17.2)
[2017-08-18 05:53] LABS: BICARBONATE 25.5 MEQ/L (21.0-32.0); BLOOD UREA NITROGEN 32 MG/DL (7-18); CALCIUM 8.2 MG/DL (8.5-10.1); CHLORIDE 103 MEQ/L (98-107); CREATININE 0.82 MG/DL (0.60-1.30); GLOMERULAR FILTRATION RATE 96 ML/MIN (>89); GLUCOSE,RANDOM 180 MG/DL (74-106); MAGNESIUM 2.7 MG/DL (1.5-2.5); SODIUM (NA) 137 MEQ/L (136-145)
[2017-08-18] MEDS: INSULIN ASPART SUPPLEMENTAL SCALE SQ SCH ×4 (08:49→21:27)
[2017-08-18] MEDS: CEFEPIME INJ 1,000 MG in SODIUM CHLORIDE 0.9% INJ 100 ML IV SCH ×3 (08:49)
[2017-08-18] MEDS: SODIUM CHLOR 0.9% 1000 ML INJ 1,000 ML IV SCH (08:50)
[2017-08-18] MEDS: PRAVASTATIN SOD 40 MG TAB PO SCH (08:52)
[2017-08-18] MEDS: FAMOTIDINE 20 MG TAB PO SCH (08:52)
[2017-08-18] MEDS: CARVEDILOL 6.25 MG TAB PO SCH ×2 (08:53→21:05)
[2017-08-18] MEDS: SACUBITRIL/VALSARTAN 49 MG-51 MG TAB PO SCH ×2 (08:54→21:05)
--- NOTE | 2017-08-18 09:03 | HHI.IDPN ---
Subjective Subjective Remarks is a 57 y/o CM with PMHx of CHF, Ischemic Cardiomyopathy with last reported EF 20-25%, he has prior h/o CABG x 3, defibrillator and pacemaker, DM, HTN and hyperlipidemia. CT surgery evaluated and found him not to be a revascularization candidate and recommended referral to a tertiary center for transplant consideration. As the patient has no insurance this option has not been found feasible. He underwent placement of a single-chamber [place] ICD in May 2017 for sudden cardiac prevention. With this background patient presents to the ED at [facility] with 4 day history of progressive dyspnea described as severe, worsening with exertion, and improved with rest. He has had associated symptoms of diaphoresis, nausea and vomiting over the weekend. He additionally has noted painful changes in his right second toe with color changes suspicious for infection. In ED patient was noted to have WBC 9.6, hemoglobin 15.0, hematocrit 43.9, platelets 133, sodium 130, potassium 4.4, BUN 36, creatinine 1.84, random glucose 407 alkaline phosphatase 114, AST 37, ALT 25, total bilirubin 0.9, troponin 3.04, C-reactive protein 26.8, B natruretic peptide 3148, lactic acid 5.5. Ax Xray of Rt toe showed erosion. MRI with no osteomyelitis. Chest x-ray showed no acute abnormality or significant interval change. 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 He states that he is only able to be active for 5-10 minutes before becoming very dyspneic and exhausted. 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 He is now attempting to get disability as he has a nearly homebound existence and requires assistance to get out to doctor's appointments. Sepsis workup on admission positive for Staph bacteremia and ID consulted for evaluation and Mment of the same. Notes reviewed D/W RN Leodan Amaro with [facility] and vascular following for gangrene of his R 2nd toe Has cardiomyopathy S/P ICD placement May 2017 Has not had any problem with his ICD until in hospital Has fired since here Now on Cefepime Zosyn on hold, ?due to low platelets Antibiotics Current Medications Medications (Trade) Dose Ordered Sig/Erika Route Start Time Stop Time Status Last Admin (NS Flush) 2 ml UNSCH PRN IVF 08/15/17 10:00 08/16/17 21:28 Heparin Sodium/ Dextrose 250 ml @ 10 mls/hr TITRATE PRN IV 08/15/17 11:45 Future Hold 08/16/17 16:19 (D50w (Vial) Inj) 50 ml UNSCH PRN IV PUSH 08/15/17 13:30 (Glucagon Inj) 1 mg UNSCH PRN OTHER 08/15/17 13:30 (NovoLOG SUPPLEMENTAL SCALE) 1 ACHS SLIDING SCALE SQ 08/15/17 17:00 08/18/17 08:49 Sodium Chloride 1,000 ml @ 60 mls/hr [id number] IV 08/15/17 13:30 08/15/17 18:23 Piperacillin Sod/ Tazobactam Sod 50 ml @ 100 mls/hr Q6H IV 08/15/17 18:00 Future Hold 08/17/17 17:02 (Ecotrin Ec) 162 mg DAILY PO 08/16/17 09:00 08/17/17 09:05 (Pepcid) 20 mg BID PO 08/15/17 21:00 08/18/17 08:52 (Pravachol) 40 mg DAILY PO 08/16/17 09:00 08/18/17 08:52 (Duoneb Neb) 1 ampule Q4HR NEB PRN NEB 08/15/17 13:45 08/15/17 15:38 (Tylenol) 650 mg Q4H PRN PO 08/15/17 14:30 08/17/17 03:07 ([place] 5-325 Mg) 1 tab Q4H PRN PO 08/15/17 14:30 08/15/17 15:18 (Reglan Inj) 5 mg Q6H PRN IV PUSH 08/16/17 02:30 08/16/17 20:10 (Zofran Odt) 4 mg Q6H PRN PO 08/16/17 02:30 (Lopressor Inj) 5 mg Q5M PRN IV PUSH 08/16/17 02:45 08/16/17 03:06 (Levemir Inj) 10 units HS SQ 08/16/17 21:00 08/17/17 21:33 [place] [place] Info[place] SPECIFIC LAB TO BE SHERRON... ONCE ONCE .XX 08/18/17 13:45 08/18/17 13:46 (Tessalon) 100 mg TID PRN PO 08/17/17 03:00 08/17/17 11:45 (Robitussin Ac 200-20 Mg/10 ml Liq) 10 ml Q6H PRN PO 08/17/17 03:00 (Coreg) 6.25 mg Q12HR PO 08/17/17 11:30 08/18/17 08:53 (Entresto 49-51 Mg) 1 tab BID PO 08/17/17 21:00 08/18/17 08:54 Cefepime HCl 1000 mg/Sodium Chloride 100 ml @ 200 mls/hr Q8H IV 08/18/17 00:00 08/18/17 08:49 Lines PIV no evidence of infection Past Medical History Severe ischemic cardiomyopathy EF 20-25% Hyperlipidemia Diabetes Coronary artery disease status post [place] 06/04 COPD Past Surgical History CABG 10 years ago Pacemaker/Defibrillator insertion Appendectomy Skin graft to right foot as a child Back surgeries 3 has hardware in back per report. Allergies: Coded Allergies: iodine (Unverified Allergy, Severe, Swelling, 06/12/17) potassium iodide (Unverified Allergy, Severe, Swelling, 06/12/17) povidone-iodine (Unverified Allergy, Severe, Swelling, 06/12/17) shellfish derived (Unverified Allergy, Severe, 06/12/17) sodium iodide (Unverified Allergy, Severe, Swelling, 06/12/17) sodium iodide (Unverified Allergy, Severe, Swelling, 06/12/17) Objective . Vital Signs Date Time Temp Pulse Resp B/P (MAP) Pulse Ox O2 Delivery O2 Flow Rate FiO2 08/18/17 08:05 97.9 18 115/73 (87) 98 08/18/17 05:00 78 08/18/17 05:00 86 16 100/59 (73) 95 08/18/17 00:00 85 16 94/57 (69) 95 08/18/17 00:00 81 08/17/17 21:26 99 21 08/17/17 20:30 97.6 93 16 101/57 (72) 98 08/17/17 20:30 104 08/17/17 18:00 104 08/17/17 17:00 96 08/17/17 16:00 87 5/26/18 16:00 98.4 91 18 117/74 (88) 95 08/17/17 15:00 90 08/17/17 14:00 94 08/17/17 13:00 88 08/17/17 12:00 94 08/17/17 12:00 98.2 93 18 115/66 (82) 96 08/17/17 11:17 99 Nasal Cannula 2.00 08/17/17 11:00 84 08/17/17 10:00 90 . Laboratory Tests Test 08/17/17 02:54 08/18/17 05:10 White Blood Count 13.2 TH/MM3 11.0 TH/MM3 Red Blood Count 5.26 MIL/MM3 5.00 MIL/MM3 Hemoglobin 14.5 GM/DL 13.6 GM/DL Hematocrit 42.9 % 40.3 % Mean Corpuscular Volume 81.5 FL 80.5 FL Mean Corpuscular Hemoglobin 27.5 PG 27.2 PG Mean Corpuscular Hemoglobin Concent 33.7 % 33.7 % Red Cell Distribution Width 17.2 % 17.4 % Platelet Count 69 TH/MM3 64 TH/MM3 Mean Platelet Volume 10.0 FL 10.7 FL Neutrophils (%) (Auto) 84.9 % Lymphocytes (%) (Auto) 4.6 % Monocytes (%) (Auto) 9.5 % Eosinophils (%) (Auto) 0.8 % Basophils (%) (Auto) 0.2 % Neutrophils # (Auto) 11.2 TH/MM3 Lymphocytes # (Auto) 0.6 TH/MM3 Monocytes # (Auto) 1.2 TH/MM3 Eosinophils # (Auto) 0.1 TH/MM3 Basophils # (Auto) 0.0 TH/MM3 CBC Comment AUTO DIFF Differential Total Cells Counted 100 Neutrophils % (Manual) 88 % Band Neutrophils % 3 % Lymphocytes % 5 % Monocytes % 4 % Neutrophils # (Manual) 12.0 TH/MM3 Nucleated Red Blood Cells 1 /100 WBC Differential Comment FINAL DIFF MANUAL Toxic Vacuolation PRESENT Platelet Estimate LOW Platelet Morphology Comment NORMAL Laboratory Tests Test 08/16/17 11:35 08/17/17 02:54 08/17/17 09:50 08/18/17 05:10 Lactic Acid Level 2.4 mmol/L Blood Urea Nitrogen 39 MG/DL 32 MG/DL Creatinine 1.16 MG/DL 0.82 MG/DL Random Glucose 245 MG/DL 180 MG/DL Calcium Level 8.3 MG/DL 8.2 MG/DL Sodium Level 139 MEQ/L 137 MEQ/L Potassium Level 3.7 MEQ/L 3.9 MEQ/L Chloride Level 103 MEQ/L 103 MEQ/L Carbon Dioxide Level 20.1 MEQ/L 25.5 MEQ/L Anion Gap 16 MEQ/L 9 MEQ/L Estimat Glomerular Filtration Rate 64 ML/MIN 96 ML/MIN B-Type Natriuretic Peptide 632 PG/ML 1210 PG/ML Magnesium Level 2.7 MG/DL Microbiology Date/Time Source Procedure Growth Status 08/18/17 05:10 Blood Peripheral Aerobic Blood Culture Pending Received 08/18/17 05:10 Blood Peripheral Anaerobic Blood Culture Pending Received 08/17/17 12:40 Blood Peripheral Aerobic Blood Culture Pending Received 08/17/17 12:40 Blood Peripheral Anaerobic Blood Culture Pending Received 08/17/17 12:20 Blood Peripheral Aerobic Blood Culture Pending Received 08/17/17 12:20 Blood Peripheral Anaerobic Blood Culture Pending Received 08/16/17 16:33 Blood Peripheral Aerobic Blood Culture - Preliminary Gram Positive Cocci Resulted 08/16/17 16:33 Blood Peripheral Anaerobic Blood Culture - Preliminary NO GROWTH IN 1 DAY Resulted 08/16/17 16:15 Blood Peripheral Aerobic Blood Culture - Preliminary Gram Positive Cocci Resulted 08/16/17 16:15 Blood Peripheral Anaerobic Blood Culture - Preliminary NO GROWTH IN 1 DAY Resulted 08/15/17 10:08 Blood Peripheral Aerobic Blood Culture - Preliminary Staphylococcus Aureus Resulted 08/15/17 10:08 Anaerobic Blood Culture - Preliminary Staphylococcus Aureus Resulted 08/15/17 10:00 Blood Peripheral Aerobic Blood Culture - Final Staphylococcus Aureus Complete 08/15/17 10:00 Anaerobic Blood Culture - Final Staphylococcus Aureus Complete Imaging Last Impressions Chest X-Ray 08/15/17 0955 Signed Impressions: CONCLUSION: 1. No acute abnormality or significant interval change. Toe X-Ray 08/15/17 0000 Signed Impressions: CONCLUSION: Questionable small erosion distal phalanx right second toe. This could be infec tious in nature if there is clinical evidence for soft tissue infection. Renal Ultrasound 08/15/17 0000 Signed Impressions: CONCLUSION: 1. No hydronephrosis. 2. Increased echogenicity most characteristic of medical renal disease. Foot MRI 08/15/17 0000 Signed Impressions: CONCLUSION: 1. No evidence for osteomyelitis. Soft tissue swelling at the second toe. Physical Exam GENERAL: Awake and alert, NAD SKIN: No rashes or lesions. Cool and dry. HEAD: Atraumatic. Normocephalic. No temporal or scalp tenderness. EYES: Pupils equal round and reactive. Extraocular motions intact. No scleral icterus. No injection or drainage. ENT: Nose without bleeding, purulent drainage or septal hematoma. Throat without erythema, tonsillar hypertrophy or exudate. Uvula midline. Airway patent. NECK: Trachea midline. Supple, nontender, no meningeal signs. CARDIOVASCULAR: HS audible. ICD, has mild pink color on his L chest, not indurated, seems swollen, not tender, has well healed incision RESPIRATORY: Clear to auscultation. Breath sounds equal bilaterally. No wheezes , rales, or rhonchi. GASTROINTESTINAL: Abdomen soft, non-tender, nondistended. MUSCULOSKELETAL: Has wet gangrene Right 2nd toe with erythema on dorsum of his foot. NEUROLOGICAL: Grossly noon-focal. Psych cooperative IV line sites with no e.o infection. Assessment & Plan Remarks High grade MSSA Sepsis (leucocytosis, tachycardia, lactic acidemia) - source ?2nd toe, concern with ICD Right 2nd toe gwet gangrene, osteomyelitis. Hepatitis C antibody positive. AICD status. CAD with severe ischemic cardiomyopathy. Thrombocytopenia likely due to severe infection, ?DIC Recs Restart Zosyn IV IV Ancef Repeat BC to document clearing Echo pending Check DIC screen May need [facility] following Vascular workup for gangrene of toe Follow C/S Monitor progress D/W Dona Gonzales MD August 18, 2017 09:03
[2017-08-18] MEDS: ASPIRIN EC 81 MG TABEC PO SCH (09:08)
[2017-08-18] MEDS: ceFAZolin 2 GM PREMIX 50 ML IV SCH ×2 (09:44→17:38)
--- NOTE | 2017-08-18 09:59 | PD.CARD.PN ---
Subjective Subjective Remarks appears comfortable in nad this am Objective Medications Current Medications Medications (Trade) Dose Ordered Sig/Erika Route Start Time Stop Time Status Last Admin (NS Flush) 2 ml UNSCH PRN IVF 08/15/17 10:00 08/16/17 21:28 Heparin Sodium/ Dextrose 250 ml @ 10 mls/hr TITRATE PRN IV 08/15/17 11:45 Future Hold 08/16/17 16:19 (D50w (Vial) Inj) 50 ml UNSCH PRN IV PUSH 08/15/17 13:30 (Glucagon Inj) 1 mg UNSCH PRN OTHER 08/15/17 13:30 (NovoLOG SUPPLEMENTAL SCALE) 1 ACHS SLIDING SCALE SQ 08/15/17 17:00 08/18/17 08:49 Sodium Chloride 1,000 ml @ 60 mls/hr [id number] IV 08/15/17 13:30 08/15/17 18:23 (Ecotrin Ec) 162 mg DAILY PO 08/16/17 09:00 Future Hold 08/17/17 09:05 (Pepcid) 20 mg BID PO 08/15/17 21:00 08/18/17 08:52 (Pravachol) 40 mg DAILY PO 08/16/17 09:00 08/18/17 08:52 (Duoneb Neb) 1 ampule Q4HR NEB PRN NEB 08/15/17 13:45 08/15/17 15:38 (Tylenol) 650 mg Q4H PRN PO 08/15/17 14:30 08/17/17 03:07 ([place] 5-325 Mg) 1 tab Q4H PRN PO 08/15/17 14:30 08/15/17 15:18 (Reglan Inj) 5 mg Q6H PRN IV PUSH 08/16/17 02:30 08/16/17 20:10 (Zofran Odt) 4 mg Q6H PRN PO 08/16/17 02:30 (Lopressor Inj) 5 mg Q5M PRN IV PUSH 08/16/17 02:45 08/16/17 03:06 (Levemir Inj) 10 units HS SQ 08/16/17 21:00 08/17/17 21:33 [place] [place] Info[place] SPECIFIC LAB TO BE SHERRON... ONCE ONCE .XX 08/18/17 13:45 08/18/17 13:46 (Tessalon) 100 mg TID PRN PO 08/17/17 03:00 08/17/17 11:45 (Robitussin Ac 200-20 Mg/10 ml Liq) 10 ml Q6H PRN PO 08/17/17 03:00 (Coreg) 6.25 mg Q12HR PO 08/17/17 11:30 08/18/17 08:53 (Entresto 49-51 Mg) 1 tab BID PO 08/17/17 21:00 08/18/17 08:54 Piperacillin Sod/ Tazobactam Sod 50 ml @ 100 mls/hr Q6H IV 08/18/17 10:00 Cefazolin Sodium/ Dextrose 50 ml @ 100 mls/hr Q8H IV 08/18/17 09:00 08/18/17 09:44 Vital Signs / I&O Vital Signs Date Time Temp Pulse Resp B/P (MAP) Pulse Ox O2 Delivery O2 Flow Rate FiO2 08/18/17 08:05 97.9 18 115/73 (87) 98 08/18/17 05:00 78 08/18/17 05:00 86 16 100/59 (73) 95 08/18/17 00:00 85 16 94/57 (69) 95 08/18/17 00:00 81 08/17/17 21:26 99 21 08/17/17 20:30 97.6 93 16 101/57 (72) 98 08/17/17 20:30 104 08/17/17 18:00 104 08/17/17 17:00 96 08/17/17 16:00 87 08/17/17 16:00 98.4 91 18 117/74 (88) 95 08/17/17 15:00 90 08/17/17 14:00 94 08/17/17 13:00 88 08/17/17 12:00 94 08/17/17 12:00 98.2 93 18 115/66 (82) 96 08/17/17 11:17 99 Nasal Cannula 2.00 08/17/17 11:00 84 08/17/17 10:00 90 I/O 08/17/17 08/17/17 08/17/17 08/18/17 08/18/17 08/18/17 07:00 15:00 23:00 07:00 15:00 23:00 Intake Total 590 ml 1385 ml 525 ml Output Total 1350 ml 600 ml Balance 590 ml 35 ml -75 ml Intake Oral 240 ml 480 ml 240 ml IV Total 350 ml 905 ml 285 ml Output Urine Total 1350 ml 600 ml # Voids 1 # Bowel Movements 1 0 Physical Exam GENERAL: SKIN: Warm and dry. HEAD: Normocephalic. EYES: No scleral icterus. No injection or drainage. NECK: Supple, trachea midline. No JVD or lymphadenopathy. CARDIOVASCULAR: Regular rate and rhythm without murmurs, gallops, or rubs. RESPIRATORY: Breath sounds equal bilaterally. No accessory muscle use. GASTROINTESTINAL: Abdomen soft, non-tender, nondistended. MUSCULOSKELETAL: No cyanosis, or edema. BACK: Nontender without obvious deformity. No CVA tenderness. Laboratory Laboratory Tests Test 08/17/17 15:47 08/17/17 22:09 08/18/17 05:10 Activated Partial Thromboplast Time 36.6 SEC 39.4 SEC White Blood Count 11.0 TH/MM3 Red Blood Count 5.00 MIL/MM3 Hemoglobin 13.6 GM/DL Hematocrit 40.3 % Mean Corpuscular Volume 80.5 FL Mean Corpuscular Hemoglobin 27.2 PG Mean Corpuscular Hemoglobin Concent 33.7 % Red Cell Distribution Width 17.4 % Platelet Count 64 TH/MM3 Mean Platelet Volume 10.7 FL Blood Urea Nitrogen 32 MG/DL Creatinine 0.82 MG/DL Random Glucose 180 MG/DL Calcium Level 8.2 MG/DL Magnesium Level 2.7 MG/DL Sodium Level 137 MEQ/L Potassium Level 3.9 MEQ/L Chloride Level 103 MEQ/L Carbon Dioxide Level 25.5 MEQ/L Anion Gap 9 MEQ/L Estimat Glomerular Filtration Rate 96 ML/MIN B-Type Natriuretic Peptide 1210 PG/ML Assessment and Plan Problem List: (1) ARF (acute renal failure) ICD Codes: N17.9 - Acute kidney failure, unspecified (2) NSTEMI (non-ST elevated myocardial infarction) ICD Codes: I21.4 - Non-ST elevation (NSTEMI) myocardial infarction (3) CAD (coronary artery disease) ICD Codes: I25.10 - Atherosclerotic heart disease of [place] coronary artery without angina pectoris (4) Decreased cardiac ejection fraction ICD Codes: R93.1 - Abnormal findings on diagnostic imaging of heart and coronary circulation (5) Elevated troponin ICD Codes: R74.8 - Abnormal levels of other serum enzymes (6) Severe sepsis ICD Codes: A41.9 - Sepsis, unspecified organism; R65.20 - Severe sepsis without septic shock (7) Diabetes mellitus ICD Codes: E11.9 - Type 2 diabetes mellitus without complications (8) Acute renal failure ICD Codes: N17.9 - Acute kidney failure, unspecified (9) Cardiomyopathy ICD Codes: I42.9 - Cardiomyopathy, unspecified (10) gangrene of the right second toe (11) Dyspnea and respiratory abnormalities ICD Codes: R06.00 - Dyspnea, unspecified; R06.89 - Other abnormalities of breathing (12) Multi-vessel coronary artery stenosis ICD Codes: I25.10 - Atherosclerotic heart disease of [place] coronary artery without angina pectoris (13) Hx of CABG ICD Codes: Z95.1 - Presence of aortocoronary bypass graft (14) Thrombocytopenia ICD Codes: D69.6 - Thrombocytopenia, unspecified Assessment and Plan 1.) Ischemic cardiomyopathy - nstemi, chf excacerbation and arf due to severe unrevascularizable cad, cardiomyopathy and high metabolic demand from sepsis, off iv heparin and aspirin due to thrombocytopenia, hematology consult placed, on antibiotics, noncardiac procedure is high risk due to multiple unstable comorbidities and nstemi 2.) VT - replete electrolytes, on coreg; d/w case management further attempts to insure and obtain eligibility for referral to heart transplant center Garrett Henao MD August 18, 2017 09:59
--- NOTE | 2017-08-18 10:10 | HHI.PR ---
Subjective Remarks feeling better no fever, no chills no foot pain, chest pain or shortness of breath Objective Vitals Vital Signs Date Time Temp Pulse Resp B/P (MAP) Pulse Ox O2 Delivery O2 Flow Rate FiO2 08/18/17 08:05 97.9 18 115/73 (87) 98 08/18/17 05:00 78 08/18/17 05:00 86 16 100/59 (73) 95 08/18/17 00:00 85 16 94/57 (69) 95 08/18/17 00:00 81 08/17/17 21:26 99 21 08/17/17 20:30 97.6 93 16 101/57 (72) 98 08/17/17 20:30 104 08/17/17 18:00 104 08/17/17 17:00 96 08/17/17 16:00 87 08/17/17 16:00 98.4 91 18 117/74 (88) 95 08/17/17 15:00 90 08/17/17 14:00 94 08/17/17 13:00 88 08/17/17 12:00 94 08/17/17 12:00 98.2 93 18 115/66 (82) 96 08/17/17 11:17 99 Nasal Cannula 2.00 08/17/17 11:00 84 I/O 08/17/17 08/17/17 08/17/17 08/18/17 08/18/17 08/18/17 07:00 15:00 23:00 07:00 15:00 23:00 Intake Total 590 ml 1385 ml 525 ml Output Total 1350 ml 600 ml Balance 590 ml 35 ml -75 ml Intake Oral 240 ml 480 ml 240 ml IV Total 350 ml 905 ml 285 ml Output Urine Total 1350 ml 600 ml # Voids 1 # Bowel Movements 1 0 Result Diagram: 08/18/17 0510 08/18/17 0510 Imaging Last Impressions Chest X-Ray 08/15/17 0955 Signed Impressions: CONCLUSION: 1. No acute abnormality or significant interval change. Toe X-Ray 08/15/17 0000 Signed Impressions: CONCLUSION: Questionable small erosion distal phalanx right second toe. This could be infec tious in nature if there is clinical evidence for soft tissue infection. Renal Ultrasound 08/15/17 0000 Signed Impressions: CONCLUSION: 1. No hydronephrosis. 2. Increased echogenicity most characteristic of medical renal disease. Foot MRI 08/15/17 0000 Signed Impressions: CONCLUSION: 1. No evidence for osteomyelitis. Soft tissue swelling at the second toe. Objective Remarks awake and alert, no distress anicteric no nuchal rigidity lungs- no rales regular rhythm abdomen soft, nontender LE- no edema, right foot with dry gangrenous 2nd toe A/P Problem List: (1) Severe sepsis ICD Code: A41.9 - Sepsis, unspecified organism; R65.20 - Severe sepsis without septic shock (2) Elevated troponin ICD Code: R74.8 - Abnormal levels of other serum enzymes (3) gangrene of the right second toe Assessment and Plan A/P Severe sepsis due to gangrene/ infection of the right second toe Staph aureus bacteremia- ff cultures to ensure clearance check echo- may need CARA ID ff - on zosyn and Ancef Repeat BC to document clearing May need CARA Podiatry following Vascular surgery ff- requested for CTA runoff Ischemic cardiomyopathy EF 25% - nstemi, Debrillator fired lasst evening 5.25 NSTEMI with history of CAD- had cardiac cath two months ago with severe three vessel disease- was evaluated by CT surgery at the time with poor targets for redo sternotomy high metabolic demand from sepsis - clinically feeling better - continue electrolyte monitoring - ASA, Heparin drip- DC due to thrombocytopenia- Hematology consutled for recommendation - continue Entresto, Coreg Acute kidney injury; improved- started on gentle IV hydration in light of cardiomyopathy- monitor renal function -thrombocytopenia- prob secondary to sepsis - Heparin and ASA - held till evaluated by Hematology - FF CBC - Hematology consulted - will also DC Pepcid- due to thrombocutopenia -COPD with no exacerbation; neb treatment as needed. -diabetes mellitus; uncontrolled- hold oral hypoglycemics- start on accu-check with SSI. continue Levemir and adjust -DVT prophylaxis;encoruage increase activity palliative care ff CM ff - assisting with transfer to a tertiary center for transplant-- no insurance, assisting us with Medicaid application Anahi Hess MD August 18, 2017 10:10
[2017-08-18] MEDS: PIPERACIL-TAZO 3.375 GM PREMIX 50 ML IV SCH ×3 (10:36→21:26)
[2017-08-18] MEDS: ACETAMINOPHEN 325 MG TAB PO PRN (11:45)
[2017-08-18 11:56] LABS: D-DIMER 1.19 MG/L FEU (0.00-0.50)
[2017-08-18] MEDS ORDERED: PHARMACY ORDERED LAB ONE ×2 (12:45→13:45)
--- NOTE | 2017-08-18 13:05 | HHI.PR ---
Subjective Remarks Patient seen bedside with nurse present. Improvement noted, denies shortness of breath or chest pain. Denies nausea vomiting fevers or chills. Patient reports eating shellfish such as oysters, clams, lobster, mussels without any allergic reaction. Objective Vital Signs Date Time Temp Pulse Resp B/P (MAP) Pulse Ox O2 Delivery O2 Flow Rate FiO2 08/18/17 11:21 97.8 78 18 107/69 (82) 97 08/18/17 10:00 88 08/18/17 09:00 84 08/18/17 08:05 97.9 18 115/73 (87) 98 08/18/17 08:00 74 08/18/17 07:00 83 08/18/17 05:00 78 08/18/17 05:00 86 16 100/59 (73) 95 08/18/17 00:00 85 16 94/57 (69) 95 08/18/17 00:00 81 08/17/17 21:26 99 21 08/17/17 20:30 97.6 93 16 101/57 (72) 98 08/17/17 20:30 104 08/17/17 18:00 104 08/17/17 17:00 96 08/17/17 16:00 87 08/17/17 16:00 98.4 91 18 117/74 (88) 95 08/17/17 15:00 90 08/17/17 14:00 94 I/O 08/17/17 08/17/17 08/17/17 08/18/17 08/18/17 08/18/17 07:00 15:00 23:00 07:00 15:00 23:00 Intake Total 590 ml 1385 ml 525 ml Output Total 1350 ml 600 ml Balance 590 ml 35 ml -75 ml Intake Oral 240 ml 480 ml 240 ml IV Total 350 ml 905 ml 285 ml Output Urine Total 1350 ml 600 ml # Voids 1 # Bowel Movements 1 0 Result Diagram: 08/18/17 0510 08/18/17 0510 Imaging Last Impressions Chest X-Ray 08/15/17 0955 Signed Impressions: CONCLUSION: 1. No acute abnormality or significant interval change. Toe X-Ray 08/15/17 0000 Signed Impressions: CONCLUSION: Questionable small erosion distal phalanx right second toe. This could be infec tious in nature if there is clinical evidence for soft tissue infection. Renal Ultrasound 08/15/17 0000 Signed Impressions: CONCLUSION: 1. No hydronephrosis. 2. Increased echogenicity most characteristic of medical renal disease. Foot MRI 08/15/17 0000 Signed Impressions: CONCLUSION: 1. No evidence for osteomyelitis. Soft tissue swelling at the second toe. Other Results Microbiology Date/Time Source Procedure Growth Status 08/18/17 05:10 Blood Peripheral Aerobic Blood Culture Pending Received 08/18/17 05:10 Blood Peripheral Anaerobic Blood Culture Pending Received Objective Remarks Lower extremity physical exam: Vascular: Dorsalis pedis diminished, posterior tibial diminished. Capillary refill time within normal limits to digits X4 right foot, absent capillary refill time noted to right second digit. edema present mildly right foot Neuro: Gross sensation intact to bilateral lower extremity. Pinpoint sensation decreased bilateral lower extremity. No hyperalgesia noted to bilateral lower extremity Dermatology: This ischemic discoloration noted to right second digit with dorsal right second digit ulceration, no purulent drainage upon compression, no probe to bone, associated erythema noted into midfoot dorsally, with decreased temperature cool to touch right second digit. Significant improvement with continued demarcation noted, completely ischemic right second digit, dry gangrene noted. Musculoskeletal: Overlapping second digit third digit noted. Medications and IVs Current Medications Medications (Trade) Dose Ordered Sig/Erika Route Start Time Stop Time Status Last Admin (NS Flush) 2 ml UNSCH PRN IVF 08/15/17 10:00 08/16/17 21:28 Heparin Sodium/ Dextrose 250 ml @ 10 mls/hr TITRATE PRN IV 08/15/17 11:45 Future Hold 08/16/17 16:19 (D50w (Vial) Inj) 50 ml UNSCH PRN IV PUSH 08/15/17 13:30 (Glucagon Inj) 1 mg UNSCH PRN OTHER 08/15/17 13:30 (NovoLOG SUPPLEMENTAL SCALE) 1 ACHS SLIDING SCALE SQ 08/15/17 17:00 08/18/17 08:49 (Ecotrin Ec) 162 mg DAILY PO 08/16/17 09:00 Future Hold 08/17/17 09:05 (Pravachol) 40 mg DAILY PO 08/16/17 09:00 08/18/17 08:52 (Duoneb Neb) 1 ampule Q4HR NEB PRN NEB 08/15/17 13:45 08/15/17 15:38 (Tylenol) 650 mg Q4H PRN PO 08/15/17 14:30 08/18/17 11:45 (Lutcher 5-325 Mg) 1 tab Q4H PRN PO 08/15/17 14:30 08/15/17 15:18 (Reglan Inj) 5 mg Q6H PRN IV PUSH 08/16/17 02:30 08/16/17 20:10 (Zofran Odt) 4 mg Q6H PRN PO 08/16/17 02:30 (Lopressor Inj) 5 mg Q5M PRN IV PUSH 08/16/17 02:45 08/16/17 03:06 (Levemir Inj) 10 units HS SQ 08/16/17 21:00 08/17/17 21:33 ([facility] Ordered Lab Info) SPECIFIC LAB TO BE ... ONCE ONCE .XX 08/18/17 13:45 08/18/17 13:46 (Tessalon) 100 mg TID PRN PO 08/17/17 03:00 08/17/17 11:45 (Robitussin Ac 200-20 Mg/10 ml Liq) 10 ml Q6H PRN PO 08/17/17 03:00 (Coreg) 6.25 mg Q12HR PO 08/17/17 11:30 08/18/17 08:53 (Entresto 49-51 Mg) 1 tab BID PO 08/17/17 21:00 08/18/17 08:54 Piperacillin Sod/ Tazobactam Sod 50 ml @ 100 mls/hr Q6H IV 08/18/17 10:00 08/18/17 10:36 Cefazolin Sodium/ Dextrose 50 ml @ 100 mls/hr Q8H IV 08/18/17 09:00 08/18/17 09:44 Assessment and Plan Assessment and Plan 57-year-old male with right second digit ischemia/infection Patient evaluated and examined with all questions answered Awaiting vascular final recommendations Per nurse CTA canceled secondary to dye allergy Patient will need right second digit amputation, awaiting further demarcation Betadine with dry sterile dressing to be applied daily Will plan on possible right second digit amputation versus continued conservative care once final vascular recommendations have been made Nyla Miranda DPAnnmarie August 18, 2017 13:05
[2017-08-18 13:55] LABS: HEPARIN INDUCED PLATELET AB NEGATIVE (NEGATIVE)
--- NOTE | 2017-08-18 14:02 | PD.CONS ---
History of Present Illness Service Hematology/oncology Consult Requested By The hospitalist service/cardiology service. Reason for Consult Progressive thrombocytopenia. Primary Care Physician Michael Jacques DO Diagnoses: History of Present Illness Chief Complaint: 1 week history of redness and darkness of the right second toe. Fevers chills and night sweats associated with difficulty breathing starting the day prior to hospitalization; 08/14/2017. History of Presenting Illness: Mr. Jimenez is a 57-year-old man with multiple medical comorbid conditions as outlined below. He reports having diabetes and peripheral neuropathy as a result of which he has numbness of his feet. The patient reports developing a red boil on his second right toe about a week ago. He applied peroxide and bandaged that area and despite this noticed a change in color, he reports the ulcer changed from red to boss and then turned black. He reports the entire second digit of the right foot turned black. At about the same time he reports developing symptoms of chills, sweats and difficulty breathing, he subsequently felt palpitations and presented to [facility] for further workup and evaluation. On 08/15/2017 at the time of presentation to [facility] he was noted to be in sepsis, blood cultures drawn came back positive for methicillin sensitive Staphylococcus aureus. He was initiated on broad-spectrum antibiotic coverage. Blood work performed also revealed positivity for the hepatitis C antibody. The patient over the course of this hospitalization has been evaluated by vascular surgery and infectious diseases, the patient tells me he will likely require amputation of 1 or 2 toes of the right foot to control the current infection. Over the past 1 week the patient's platelet counts have been trending down ; At presentation his platelet count was over 130,000, platelet levels today are less than 70,000. He had been on antiplatelet therapy with aspirin which has now been discontinued due to worsening thrombocytopenia he was also on heparin which has been discontinued. A heparin/platelet factor for antibody Lina screening test has been ordered and the results are pending at this time. The hematology service is been asked to see the patient for further workup and management of thrombocytopenia. Review of Systems Constitutional: COMPLAINS OF: Diaphoretic episodes, Fatigue, Fever, Weight loss , Chills, Dizziness, Change in appetite, Night Sweats, DENIES: Weight gain Endocrine: COMPLAINS OF: Heat/cold intolerance, DENIES: Polydipsia, Polyuria, Polyphagia Eyes: DENIES: Blurred vision, Diplopia, Eye inflammation, Eye pain, Vision loss , Photosensitivity, Double Vision Ears, nose, mouth, throat: DENIES: Tinnitus, Hearing loss, Vertigo, Nasal discharge, Oral lesions, Throat pain, Hoarseness, Ear Pain, Running Nose, Epistaxis, Sinus Pain, Toothache, Odynophagia Respiratory: DENIES: Apneas, Cough, Snoring, Wheezing, Hemoptysis, Sputum production, Shortness of breath Cardiovascular: COMPLAINS OF: Chest pain, Palpitations, Dyspnea on Exertion, Lower Extremity Edema, Claudication, DENIES: Syncope, PND, Orthopnea Gastrointestinal: DENIES: Abdominal pain, Black stools, Bloody stools, Constipation, Diarrhea, Nausea, Vomiting, Difficulty Swallowing, Anorexia Genitourinary: DENIES: Sexual dysfunction, Urinary frequency, Urinary incontinence, Urgency, Hematuria, Dysuria, Nocturia, Penile Discharge, Testicular Pain, Testicular Swelling Musculoskeletal: COMPLAINS OF: Joint pain, Muscle aches, Back pain, DENIES: Stiffness, Joint Swelling, Neck pain Integumentary: COMPLAINS OF: Abnormal pigmentation, DENIES: Nail changes, Pruritus, Rash (Darkening/black discoloration of the right second toe.) Hematologic/lymphatic: DENIES: Bruising, Lymphadenopathy Immunologic/allergic: DENIES: Eczema, Urticaria Neurologic: DENIES: Abnormal gait, Headache, Localized weakness, Paresthesias, Seizures, Speech Problems, Tremor, Poor Balance Psychiatric: COMPLAINS OF: Anxiety, DENIES: Confusion, Mood changes, Depression , Hallucinations, Agitation, Suicidal Ideation, Homicidal Ideation, Delusions Except as stated in HPI: all other systems reviewed are Neg Past Family Social History Allergies: Coded Allergies: iodine (Unverified Allergy, Severe, Swelling, 06/12/17) potassium iodide (Unverified Allergy, Severe, Swelling, 06/12/17) povidone-iodine (Unverified Allergy, Severe, Swelling, 06/12/17) shellfish derived (Unverified Allergy, Severe, 06/12/17) sodium iodide (Unverified Allergy, Severe, Swelling, 06/12/17) sodium iodide (Unverified Allergy, Severe, Swelling, 06/12/17) Past Medical History Ischemic cardiomyopathy with LVEF of approximately 20% Type 2 diabetes Peripheral arterial disease Basal cell carcinoma skin Hepatitis C antibody positive Previous history of tobaccoism Past Surgical History CABG (three-vessel) 2007. AICD placement in May 2017. Active Ordered Medications Cefazolin 2 g IV every 8 hours Zosyn 3.375 g IV every 6 hours Hydrocodone/acetaminophen 5/325 one tablet p.o. every 4 hours needed for pain Duo nebs 1 amp every 4 hours as needed for shortness of breath Aspirin 162 mg p.o. daily (on hold). Tessalon Perles 100 mg p.o. 3 times daily as needed for cough Carvedilol 6.25 mg p.o. every 12 hours Guaifenesin/codeine 200/20 mg per 10 mL 10 mL p.o. every 6 hours needed for cough Insulin Levemir 10 mg subcu q. at bedtime. Low-dose insulin NovoLog sliding scale Metoclopramide 5 mill grams IV every 6 hours Metoprolol 5 mg IV q. 5 minutes as needed for atrial flutter Zofran 4 mg p.o. every 6 hours needed for nausea and vomiting Pravastatin 40 mg p.o. daily Sacubitril/valsartan 49/51 mg p.o. twice daily Family History Parents are both . Mother of complications of lung cancer and coronary artery disease Father of a major stroke. Social History Patient lives at home with his significant other, he has no children of his own. 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 Physical Exam Vital Signs Vital Signs Date Time Temp Pulse Resp B/P (MAP) Pulse Ox O2 Delivery O2 Flow Rate FiO2 08/18/17 13:00 78 08/18/17 12:00 74 08/18/17 11:21 97.8 78 18 107/69 (82) 97 08/18/17 11:00 78 08/18/17 10:00 88 08/18/17 09:00 84 08/18/17 08:05 97.9 18 115/73 (87) 98 08/18/17 08:00 74 08/18/17 07:00 83 08/18/17 05:00 78 08/18/17 05:00 86 16 100/59 (73) 95 08/18/17 00:00 85 16 94/57 (69) 95 08/18/17 00:00 81 08/17/17 21:26 99 21 08/17/17 20:30 97.6 93 16 101/57 (72) 98 08/17/17 20:30 104 08/17/17 18:00 104 08/17/17 17:00 96 08/17/17 16:00 87 08/17/17 16:00 98.4 91 18 117/74 (88) 95 08/17/17 15:00 90 08/17/17 14:00 94 Physical Exam GENERAL: Middle-aged male, laying in bed, no acute distress, is a pleasant disposition. He appears to be tall and has a moderate build. SKIN: No rashes, ecchymoses or lesions. Cool and dry. The right second toe appears to be gangrenous with dark discoloration, wrapped in bandages. HEAD: Atraumatic. Normocephalic. No temporal or scalp tenderness. Can conjunctivae are pale sclerae anicteric. EYES: Pupils equal round and reactive. Extraocular motions intact. No scleral icterus. No injection or drainage. ENT: Nose without bleeding, purulent drainage or septal hematoma. Throat without erythema, tonsillar hypertrophy or exudate. Uvula midline. Airway patent. NECK: Trachea midline. No JVD or lymphadenopathy. Supple, nontender, no meningeal signs. CARDIOVASCULAR: Regular rate and rhythm without murmurs, gallops, or rubs. AICD noted over the left anterior upper chest wall. RESPIRATORY: Clear to auscultation. Breath sounds equal bilaterally. No wheezes , rales, or rhonchi. GASTROINTESTINAL: Abdomen soft, non-tender, nondistended. No hepato-splenomegaly , or palpable masses. No guarding. MUSCULOSKELETAL: Generally decreased muscle mass over the lower extremities. Gangrenous changes involving the right second toe. NEUROLOGICAL: Awake and alert. Cranial nerves II through XII intact. Motor and sensory grossly within normal limits. Five out of 5 muscle strength in all muscle groups. Normal speech. Laboratory Laboratory Tests Test 08/17/17 15:47 08/17/17 22:09 08/18/17 05:10 08/18/17 10:54 Activated Partial Thromboplast Time 36.6 39.4 White Blood Count 11.0 Red Blood Count 5.00 Hemoglobin 13.6 Hematocrit 40.3 Mean Corpuscular Volume 80.5 Mean Corpuscular Hemoglobin 27.2 Mean Corpuscular Hemoglobin Concent 33.7 Red Cell Distribution Width 17.4 Platelet Count 64 Mean Platelet Volume 10.7 Blood Urea Nitrogen 32 Creatinine 0.82 Random Glucose 180 Calcium Level 8.2 Magnesium Level 2.7 Sodium Level 137 Potassium Level 3.9 Chloride Level 103 Carbon Dioxide Level 25.5 Anion Gap 9 Estimat Glomerular Filtration Rate 96 B-Type Natriuretic Peptide 1210 Fibrinogen 392 D-Dimer Quantitative (PE/DVT) 1.19 Date/Time Source Procedure Growth Status 08/18/17 05:10 Blood Peripheral Aerobic Blood Culture Pending Received 08/18/17 05:10 Blood Peripheral Anaerobic Blood Culture Pending Received Result Diagram: 08/18/17 0510 08/18/17 0510 Imaging 08/15/2017: Arterial flow imaging study of the extremity. Conclusion: 1. Findings consistent with left outflow disease as well as small vessel disease in the left foot. 2. Near normal range right ankle/brachial indices and segmental pressure. Assessment and Plan Assessment and Plan 57-year-old man with a history of diabetes, coronary artery disease, ischemic cardiomyopathy, hepatitis C antibody positive (viral titers not known). Presenting with gangrenous changes involving the second digit of the right lower extremity and to a lesser extent the first digit of the right lower extremity. Presentation complicated by methicillin sensitive Staphylococcus aureus sepsis, resultant sepsis syndrome and cardiac arrhythmia with resultant firing of his AICD several times 2 nights ago. He is currently being treated for his MSSA sepsis with broad-spectrum antibiotic coverage and is also being evaluated by vascular surgery for possible angioplasty of the right lower extremity and possible amputation of the first and second digits of the right foot. The patient had been on a heparin infusion given the peripheral arterial disease , he was also on aspirin given his history of coronary artery disease and ischemic cardiomyopathy. Over the past 1 week his platelet counts have been consistently declining with platelet counts noted to be less than 70,000 earlier today; due to progressive thrombocytopenia the heparin infusion and aspirin have been discontinued. Patient's thrombocytopenia is likely related to multiple factors but primarily seems to be driven by peripheral consumptive coagulopathy secondary to MSSA sepsis, additional contributing factors may include splenic sequestration secondary to hypersplenism or concomitant use of antibiotic therapy which can also have a myelosuppressive effect. Recommendations: 1. Continue antibiotic therapy for management of MSSA sepsis; Thrombocytopenia secondary to peripheral consumptive coagulopathy secondary to sepsis should improve as his sepsis resolves. 2. Obtain ultrasound of the liver and spleen to assess hepatic architecture and spleen size. 3. Await results of heparin/platelet factor for antibody titers. This test is positive confirmatory testing with serotonin release assay will be ordered and the patient will be placed on Argatroban infusion. 4. It should be safe for him to be on aspirin 81 mg once daily given the platelet counts are higher than 50,000. Thank you for involving me in the care of this patient. Jason Jones MD August 18, 2017 14:02
[2017-08-18 14:59] LABS: HEMOGLOBIN A1C 9.6 % (4.3-6.0)
--- NOTE | 2017-08-18 17:54 | ECHRPT ---
Indication: Staph Bacteremia CONCLUSIONS The left ventricular systolic function is severely reduced with an estimated ejection fraction in th e range of 20-25%. Severely dilated left ventricle. Wall thickness is normal. A pacemaker wire is noted. The left atrial size is moderately dilated. There is a pacemaker wire present in the right atrial cavity. Moderate mitral valve regurgitation. There is mild tricuspid valve regurgitation. The estimated pulmonary arterial pressure is 27 mmHg. Trivial pulmonary valve regurgitation. BP: / HR: 70 Rhythm: Sinus MEASUREMENTS (Male / Female) Normal Values Technical Quality:Fair 2D ECHO LV Diastolic Diameter PLAX 6.6 cm 4.2 - 5.9 / 3.9 - 5.3 cm LV Systolic Diameter PLAX 6.0 cm IVS Diastolic Thickness 0.9 cm 0.6 - 1.0 / 0.6 - 0.9 cm LVPW Diastolic Thickness 0.9 cm 0.6 - 1.0 / 0.6 - 0.9 cm LV Relative Wall Thickness 0.3 RV Internal Dim ED PLAX 3.3 cm LVOT Diameter 2.3 cm LA Systolic Diameter LX 4.5 cm 3.0 - 4.0 / 2.7 - 3.8 cm M-MODE Aortic Root Diameter MM 2.7 cm LA Systolic Diameter MM 4.3 cm LA Ao Ratio MM 1.6 MV E Point Septal Separation 2.2 cm AV Cusp Separation MM 1.8 cm DOPPLER AV Peak Velocity 133.0 cm/s AV Peak Gradient 7.1 mmHg LVOT Peak Velocity 75.8 cm/s LVOT Peak Gradient 2.3 mmHg AV Area Cont Eq pk 2.4 cm MV Area PHT 2.7 cm Mitral E Point Velocity 50.0 cm/s Mitral A Point Velocity 85.0 cm/s Mitral E to A Ratio 0.6 LV E' Lateral Velocity 3.9 cm/s Mitral E to LV E' Lateral Ratio 12.8 LV E' Septal Velocity 4.3 cm/s Mitral E to LV E' Septal Ratio 11.7 TR Peak Velocity 206.0 cm/s TR Peak Gradient 17.0 mmHg FINDINGS LEFT VENTRICLE The left ventricular systolic function is severely reduced with an estimated ejection fraction in th e range of 20-25%. Severely dilated left ventricle. Wall thickness is normal. RIGHT VENTRICLE A pacemaker wire is noted. LEFT ATRIUM The left atrial size is moderately dilated. RIGHT ATRIUM There is a pacemaker wire present in the right atrial cavity. ATRIAL SEPTUM Normal atrial septal thickness without atrial level shunting by limited color doppler interrogation. AORTA The aortic root and proximal ascending aorta are normal in size on limited imaging. MITRAL VALVE Moderate mitral valve regurgitation. AORTIC VALVE Trileaflet aortic valve. No aortic valve stenosis or regurgitation. TRICUSPID VALVE Structurally normal tricuspid valve. There is mild tricuspid valve regurgitation. The estimated pulmonary arterial pressure is 27 mmHg. PULMONARY VALVE Trivial pulmonary valve regurgitation. VESSELS The inferior vena cava is normal in size. PERICARDIUM No pericardial effusion. Adair Castillo MD, FACC (Electronically Signed) Final Date:18 Aug 2017 17:53
[2017-08-18] MEDS: SODIUM CHLORIDE 0.9% FLUSH 10 ML FLUSH IVF PRN (21:06)
[2017-08-18] MEDS: INSULIN DETEMIR 100 UNITS/ML VIAL SQ SCH (21:27)
[2017-08-19] VITALS (26 sets, daily range): BP systolic 108–132; BP diastolic 65–78; PULSE 72–85; RESP 16–19; TEMP 98.2–98.8; O2SAT 93–100
[2017-08-19] MEDS: ceFAZolin 2 GM PREMIX 50 ML IV SCH ×3 (00:05→16:26)
[2017-08-19] MEDS: PIPERACIL-TAZO 3.375 GM PREMIX 50 ML IV SCH ×2 (04:00→10:00)
[2017-08-19 04:52] LABS: HEMOGLOBIN 14.2 GM/DL (13.0-17.0); MEAN CELL VOLUME 80.7 FL (80.0-100.0); MEAN CORPUSCULAR HEMOGLOBIN 27.3 PG (27.0-34.0); MEAN CORPUSCULAR HGB CONC 33.8 % (32.0-36.0); MEAN PLATELET VOLUME 10.2 FL (7.0-11.0); PLATELET COUNT 80 TH/MM3 (150-450); WHITE BLOOD COUNT 12.4 TH/MM3 (4.0-11.0)
[2017-08-19 05:12] LABS: BICARBONATE 26.8 MEQ/L (21.0-32.0); CALCIUM 8.9 MG/DL (8.5-10.1); CREATININE 0.77 MG/DL (0.60-1.30)
[2017-08-19] MEDS: INSULIN ASPART SUPPLEMENTAL SCALE SQ SCH ×4 (08:31→21:00)
[2017-08-19] MEDS: PRAVASTATIN SOD 40 MG TAB PO SCH (08:31)
[2017-08-19] MEDS: CARVEDILOL 6.25 MG TAB PO SCH ×2 (08:31→20:45)
[2017-08-19] MEDS: SODIUM CHLORIDE 0.9% FLUSH 10 ML FLUSH IVF PRN (08:31)
[2017-08-19] MEDS: SACUBITRIL/VALSARTAN 49 MG-51 MG TAB PO SCH ×2 (08:31→20:45)
--- NOTE | 2017-08-19 10:09 | PD.CAR.PN ---
CVT Progress Note Subjective/Hospital Course: Patient seen full consult dictated Aziza Troy 08/19/2017 This patient clearly has systemic vascular changes consistent with diabetes with decreased pulses in both legs below the level of the knee and consistent with a small vessel disease below the level of the ankles. The gangrene of the first 2 toes was probably due to trauma and swelling that patient did not even notice and then superimposed occlusion of the small vessels. In a few patients, this will occur also from distal embolization, but that is unlikely because the patient is on anticoagulants. I do not believe that his proximal inflow is compromised, but I do believe he probably has significant disease below the level of the knee, especially close to the ankles. At this point, it is a valid point to do a CT angiogram with runoff and see what this looks like. It should be noted that a patient with this degree of ejection fraction and coronary impairment is not a candidate for any major surgery more than absolutely necessary, but he may be okay for some balloon angioplasty distally. At this point, we will do CTA with runoff and see which way it goes. Objective: Vital Signs Date Time Temp Pulse Resp B/P (MAP) Pulse Ox O2 Delivery O2 Flow Rate FiO2 08/19/17 08:00 76 08/19/17 08:00 98.2 84 16 110/65 (80) 97 08/19/17 06:15 74 08/19/17 05:45 85 08/19/17 04:59 79 18 108/76 (87) 98 08/19/17 04:04 83 08/19/17 01:01 78 08/19/17 00:35 74 08/19/17 00:04 74 16 113/76 (88) 93 08/19/17 00:00 74 08/18/17 23:00 84 08/18/17 22:00 80 08/18/17 21:00 84 08/18/17 20:54 97.4 87 16 134/81 (98) 98 08/18/17 20:30 87 08/18/17 20:00 84 08/18/17 19:00 78 08/18/17 18:00 78 08/18/17 17:00 74 08/18/17 16:00 74 08/18/17 15:26 97.9 71 18 104/65 (78) 97 08/18/17 15:00 74 08/18/17 14:00 70 08/18/17 13:00 78 08/18/17 12:00 74 08/18/17 11:21 97.8 78 18 107/69 (82) 97 08/18/17 11:00 78 Labs: Laboratory Tests Test 08/19/17 04:05 White Blood Count 12.4 TH/MM3 (4.0-11.0) Red Blood Count 5.20 MIL/MM3 (4.50-5.90) Hemoglobin 14.2 GM/DL (13.0-17.0) Hematocrit 42.0 % (39.0-51.0) Mean Corpuscular Volume 80.7 FL (80.0-100.0) Mean Corpuscular Hemoglobin 27.3 PG (27.0-34.0) Mean Corpuscular Hemoglobin Concent 33.8 % (32.0-36.0) Red Cell Distribution Width 17.0 % (11.6-17.2) Platelet Count 80 TH/MM3 (150-450) Mean Platelet Volume 10.2 FL (7.0-11.0) Blood Urea Nitrogen 28 MG/DL (7-18) Creatinine 0.77 MG/DL (0.60-1.30) Random Glucose 232 MG/DL (74-106) Calcium Level 8.9 MG/DL (8.5-10.1) Sodium Level 138 MEQ/L (136-145) Potassium Level 4.1 MEQ/L (3.5-5.1) Chloride Level 103 MEQ/L (98-107) Carbon Dioxide Level 26.8 MEQ/L (21.0-32.0) Anion Gap 8 MEQ/L (5-15) Estimat Glomerular Filtration Rate 103 ML/MIN (>89) B-Type Natriuretic Peptide 847 PG/ML (0-100) Result Diagram: 08/19/17 0405 08/19/17 040 (1) ARF (acute renal failure) (2) NSTEMI (non-ST elevated myocardial infarction) (3) CAD (coronary artery disease) (4) Decreased cardiac ejection fraction (5) Elevated troponin (6) Severe sepsis (7) Diabetes mellitus (8) Acute renal failure (9) Cardiomyopathy (10) gangrene of the right second toe (11) Dyspnea and respiratory abnormalities (12) Multi-vessel coronary artery stenosis (13) Hx of CABG (14) Thrombocytopenia Jazarevic,Slobodan MD August 19, 2017 10:09
--- NOTE | 2017-08-19 10:40 | HHI.PR ---
Subjective Remarks awake and alert, no fever or chills denies any chest discomfort, shortness of breath, no diarrhea- stools formed for CTA run off study- staff still investigating - his iodine allergy Objective Vitals Vital Signs Date Time Temp Pulse Resp B/P (MAP) Pulse Ox O2 Delivery O2 Flow Rate FiO2 08/19/17 08:00 76 08/19/17 08:00 98.2 84 16 110/65 (80) 97 08/19/17 06:15 74 08/19/17 05:45 85 08/19/17 04:59 79 18 108/76 (87) 98 08/19/17 04:04 83 08/19/17 01:01 78 08/19/17 00:35 74 08/19/17 00:04 74 16 113/76 (88) 93 08/19/17 00:00 74 08/18/17 23:00 84 08/18/17 22:00 80 08/18/17 21:00 84 08/18/17 20:54 97.4 87 16 134/81 (98) 98 08/18/17 20:30 87 08/18/17 20:00 84 08/18/17 19:00 78 08/18/17 18:00 78 08/18/17 17:00 74 08/18/17 16:00 74 08/18/17 15:26 97.9 71 18 104/65 (78) 97 08/18/17 15:00 74 08/18/17 14:00 70 08/18/17 13:00 78 08/18/17 12:00 74 08/18/17 11:21 97.8 78 18 107/69 (82) 97 08/18/17 11:00 78 I/O 08/18/17 08/18/17 08/18/17 08/19/17 08/19/17 08/19/17 07:00 15:00 23:00 07:00 15:00 23:00 Intake Total 525 ml 200 ml 1290 ml 240 ml Output Total 600 ml 1025 ml 500 ml Balance -75 ml 200 ml 265 ml -260 ml Intake Oral 240 ml 1290 ml 240 ml IV Total 285 ml 200 ml Output Urine Total 600 ml 1025 ml 500 ml # Bowel Movements 1 Result Diagram: 08/19/175 08/19/17404 Imaging Last Impressions Chest X-Ray 08/15/17 0955 Signed Impressions: CONCLUSION: 1. No acute abnormality or significant interval change. Toe X-Ray 08/15/17 0000 Signed Impressions: CONCLUSION: Questionable small erosion distal phalanx right second toe. This could be infec tious in nature if there is clinical evidence for soft tissue infection. Renal Ultrasound 08/15/17 0000 Signed Impressions: CONCLUSION: 1. No hydronephrosis. 2. Increased echogenicity most characteristic of medical renal disease. Foot MRI 08/15/17 0000 Signed Impressions: CONCLUSION: 1. No evidence for osteomyelitis. Soft tissue swelling at the second toe. Objective Remarks awake and alert, no distress anicteric no nuchal rigidity lungs- no rales regular rhythm abdomen soft, nontender LE- no edema, right foot with dry gangrenous 2nd toe, erytehma improving A/P Problem List: (1) Severe sepsis ICD Code: A41.9 - Sepsis, unspecified organism; R65.20 - Severe sepsis without septic shock (2) Elevated troponin ICD Code: R74.8 - Abnormal levels of other serum enzymes (3) gangrene of the right second toe Assessment and Plan A/P Severe sepsis due to gangrene/ infection of the right second toe Staph aureus bacteremia-- persistent bacteremia- check echo- may need CARA ID ff - on zosyn and Ancef Repeat BC to document clearing in next few days May need CARA Podiatry following Vascular surgery ff- requested for CTA runoff Ischemic cardiomyopathy EF 25% - nstemi, [facility] fired evening 5.25 NSTEMI with history of CAD- had cardiac cath two months ago with severe three vessel disease- was evaluated by CT surgery at the time with poor targets for redo sternotomy high metabolic demand from sepsis - clinically feeling better - continue electrolyte monitoring - ASA, Heparin drip- DC due to thrombocytopenia- Hematology consutled for recommendation - continue Entresto, Coreg - will start ASA Acute kidney injury; improved- started on gentle IV hydration in light of cardiomyopathy- monitor renal function -thrombocytopenia- likely due to sepsis - continue ASA - FF CBC -seen by Dr. Jones. HIT ab negative- restart heparin drip- will d/w Dr. Jones - will also DC Pepcid- due to thrombocytopenia Diabetes mellitus- sliding scale -COPD with no exacerbation; neb treatment as needed. -diabetes mellitus; uncontrolled- hold oral hypoglycemics- start on accu-check with SSI. continue Levemir and adjust -DVT prophylaxis;encoruage increase activity palliative care ff CM ff - assisting with transfer to a tertiary center for transplant-- no insurance, assisting us with Medicaid application Anahi Hess MD August 19, 2017 10:40
[2017-08-19] MEDS ORDERED: Gentamicin Consult Pharmacy 1 EA OTHER SCH (11:15)
--- NOTE | 2017-08-19 11:33 | PD.ONC.PN ---
Subjective Subjective Remarks Patient seen and examined, vital signs, labs, medications reviewed. Subjectively patient reports. No acute complaints. He denies overt bleeding, the toe on the right foot remains necrotic. Summary of lab work/updates: Heparin/platelet factor for antibody screen: Negative. Platelet count this morning was noted to be 80,000 (improved from 69, 000 yesterday). He has now been resumed on low-dose aspirin. Objective Data Date Time Temp Pulse Resp B/P (MAP) Pulse Ox O2 Delivery O2 Flow Rate FiO2 08/19/17 11:00 74 08/19/17 10:00 84 08/19/17 09:00 84 08/19/17 08:00 76 08/19/17 08:00 98.2 84 16 110/65 (80) 97 08/19/17 07:00 74 08/19/17 06:15 74 08/19/17 05:45 85 08/19/17 04:59 79 18 108/76 (87) 98 08/19/17 04:04 83 08/19/17 01:01 78 08/19/17 00:35 74 08/19/17 00:04 74 16 113/76 (88) 93 08/19/17 00:00 74 08/18/17 23:00 84 08/18/17 22:00 80 08/18/17 21:00 84 08/18/17 20:54 97.4 87 16 134/81 (98) 98 08/18/17 20:30 87 08/18/17 20:00 84 08/18/17 19:00 78 08/18/17 18:00 78 08/18/17 17:00 74 08/18/17 16:00 74 08/18/17 15:26 97.9 71 18 104/65 (78) 97 08/18/17 15:00 74 08/18/17 14:00 70 08/18/17 13:00 78 08/18/17 12:00 74 08/19/17 08/19/17 08/19/17 07:00 15:00 23:00 Intake Total 240 ml Output Total 500 ml Balance -260 ml Result Diagram: 08/19/17 0405 08/19/17 0405 Laboratory Results Laboratory Tests Test 08/19/17 04:05 White Blood Count 12.4 TH/MM3 Red Blood Count 5.20 MIL/MM3 Hemoglobin 14.2 GM/DL Hematocrit 42.0 % Mean Corpuscular Volume 80.7 FL Mean Corpuscular Hemoglobin 27.3 PG Mean Corpuscular Hemoglobin Concent 33.8 % Red Cell Distribution Width 17.0 % Platelet Count 80 TH/MM3 Mean Platelet Volume 10.2 FL Blood Urea Nitrogen 28 MG/DL Creatinine 0.77 MG/DL Random Glucose 232 MG/DL Calcium Level 8.9 MG/DL Sodium Level 138 MEQ/L Potassium Level 4.1 MEQ/L Chloride Level 103 MEQ/L Carbon Dioxide Level 26.8 MEQ/L Anion Gap 8 MEQ/L Estimat Glomerular Filtration Rate 103 ML/MIN B-Type Natriuretic Peptide 847 PG/ML Culture Results Microbiology Date/Time Source Procedure Growth Status 08/18/17 05:10 Blood Peripheral Aerobic Blood Culture - Preliminary Gram Positive Cocci Resulted 08/18/17 05:10 Blood Peripheral Anaerobic Blood Culture - Preliminary NO GROWTH IN 1 DAY Resulted 08/17/17 12:40 Blood Peripheral Aerobic Blood Culture - Preliminary Gram Positive Cocci Resulted 08/17/17 12:40 Blood Peripheral Anaerobic Blood Culture - Preliminary NO GROWTH IN 2 DAYS Resulted 08/17/17 12:20 Blood Peripheral Aerobic Blood Culture - Preliminary Gram Positive Cocci Resulted 08/17/17 12:20 Blood Peripheral Anaerobic Blood Culture - Preliminary NO GROWTH IN 2 DAYS Resulted 08/16/17 16:33 Blood Peripheral Aerobic Blood Culture - Final Staphylococcus Aureus Resulted 08/16/17 16:33 Blood Peripheral Anaerobic Blood Culture - Preliminary NO GROWTH IN 3 DAYS Resulted 08/16/17 16:15 Blood Peripheral Aerobic Blood Culture - Final Staphylococcus Aureus Resulted 08/16/17 16:15 Blood Peripheral Anaerobic Blood Culture - Preliminary NO GROWTH IN 3 DAYS Resulted Administered Medications Medications (Trade) Dose Ordered Sig/Erika Route PRN Reason Start Time Stop Time Status Last Admin Dose Admin Sodium Chloride (NS Flush) 2 ml UNSCH PRN IVF FLUSH AFTER USING IV ACCESS 08/15/17 10:00 08/19/17 08:31 Heparin Sodium/ Dextrose 250 ml @ 10 mls/hr TITRATE PRN IV Coagulation Management 08/15/17 11:45 Future Hold 08/16/17 16:19 Insulin Aspart (NovoLOG SUPPLEMENTAL SCALE) 1 ACHS SLIDING SCALE SQ 08/15/17 17:00 08/19/17 08:31 Aspirin (Ecotrin Ec) 162 mg DAILY PO 08/16/17 09:00 Future Hold 08/17/17 09:05 Pravastatin Sodium (Pravachol) 40 mg DAILY PO 08/16/17 09:00 08/19/17 08:31 Albuterol/ Ipratropium (Duoneb Neb) 1 ampule Q4HR NEB PRN NEB SHORTNESS OF BREATH 08/15/17 13:45 08/15/17 15:38 Acetaminophen (Tylenol) 650 mg Q4H PRN PO FEVER/PAIN 1-5 08/15/17 14:30 08/18/17 11:45 Acetaminophen/ Hydrocodone Bitart (Dolores 5-325 Mg) 1 tab Q4H PRN PO PAIN 6-10 08/15/17 14:30 08/15/17 15:18 Metoclopramide HCl (Reglan Inj) 5 mg Q6H PRN IV PUSH NAUSEA OR VOMITING 08/16/17 02:30 08/16/17 20:10 Metoprolol Tartrate (Lopressor Inj) 5 mg Q5M PRN IV PUSH ATRIAL FLUTTER 08/16/17 02:45 08/16/17 03:06 Insulin Detemir (Levemir Inj) 10 units HS SQ 08/16/17 21:00 08/18/17 21:27 Benzonatate (Tessalon) 100 mg TID PRN PO COUGH 08/17/17 03:00 08/17/17 11:45 Carvedilol (Coreg) 6.25 mg Q12HR PO 08/17/17 11:30 08/19/17 08:31 Sacubitril/ Valsartan (Entresto 49-51 Mg) 1 tab BID PO 08/17/17 21:00 08/19/17 08:31 Cefazolin Sodium/ Dextrose 50 ml @ 100 mls/hr Q8H IV 08/18/17 09:00 08/19/17 08:32 Objective Remarks GENERAL: Middle-aged male, laying in bed, no acute distress, is a pleasant disposition. He appears to be tall and has a moderate build. SKIN: No rashes, ecchymoses or lesions. Cool and dry. The right second toe appears to be gangrenous with dark discoloration, wrapped in bandages. HEAD: Atraumatic. Normocephalic. No temporal or scalp tenderness. Can conjunctivae are pale sclerae anicteric. EYES: Pupils equal round and reactive. Extraocular motions intact. No scleral icterus. No injection or drainage. ENT: Nose without bleeding, purulent drainage or septal hematoma. Throat without erythema, tonsillar hypertrophy or exudate. Uvula midline. Airway patent. NECK: Trachea midline. No JVD or lymphadenopathy. Supple, nontender, no meningeal signs. CARDIOVASCULAR: Regular rate and rhythm without murmurs, gallops, or rubs. AICD noted over the left anterior upper chest wall. RESPIRATORY: Clear to auscultation. Breath sounds equal bilaterally. No wheezes , rales, or rhonchi. GASTROINTESTINAL: Abdomen soft, non-tender, nondistended. No hepato-splenomegaly , or palpable masses. No guarding. MUSCULOSKELETAL: Generally decreased muscle mass over the lower extremities. Gangrenous changes involving the right second toe. NEUROLOGICAL: Awake and alert. Cranial nerves II through XII intact. Motor and sensory grossly within normal limits. Five out of 5 muscle strength in all muscle groups. Normal speech. Assessment/Plan Assessment 57-year-old man with a history of diabetes, coronary artery disease, ischemic cardiomyopathy, hepatitis C antibody positive (viral titers not known). Presenting with gangrenous changes involving the second digit of the right lower extremity and to a lesser extent the first digit of the right lower extremity. Presentation complicated by methicillin sensitive Staphylococcus aureus sepsis, resultant sepsis syndrome and cardiac arrhythmia with resultant firing of his AICD several times 2 nights ago. He is currently being treated for his MSSA sepsis with broad-spectrum antibiotic coverage and is also being evaluated by vascular surgery for possible angioplasty of the right lower extremity and possible amputation of the first and second digits of the right foot. The patient had been on a heparin infusion given the peripheral arterial disease , he was also on aspirin given his history of coronary artery disease and ischemic cardiomyopathy. Over the past 1 week his platelet counts have been consistently declining with platelet counts noted to be less than 70,000 earlier today; due to progressive thrombocytopenia the heparin infusion and aspirin have been discontinued. Patient's thrombocytopenia is likely related to multiple factors but primarily seems to be driven by peripheral consumptive coagulopathy secondary to MSSA sepsis, additional contributing factors may include splenic sequestration secondary to hypersplenism or concomitant use of antibiotic therapy which can also have a myelosuppressive effect. Plan 1. Continue antibiotic therapy for management of MSSA sepsis; Thrombocytopenia secondary to peripheral consumptive coagulopathy secondary to sepsis should improve as his sepsis resolves. Platelet count is improved to 80,000 today. Hit antibody negative. Aspirin 81 mg once daily resumed. I will resume heparin infusion for management of his peripheral arterial disease. 2. Obtain ultrasound of the liver and spleen to assess hepatic architecture and spleen size; this is still pending. Jason Jones MD August 19, 2017 11:33
[2017-08-19] MEDS: ASPIRIN 81 MG CHEW TAB CHEW SCH (12:10)
[2017-08-19] MEDS ORDERED: IOHEXOL 350 MG/ML 10 ML VIAL (for RAD DIAG) IVCONTRAST ONE (13:57)
[2017-08-19] MEDS: GENTAMICIN INJ 90 MG in SODIUM CHLORIDE 0.9% INJ 100 ML IV SCH ×2 (14:00→21:20)
[2017-08-19] MEDS: HEPARIN-D5W 25,000 U/250 ML 250 ML IV PRN (14:41)
--- NOTE | 2017-08-19 15:13 | RADRPT ---
EXAM DATE: 08/19/2017 2:21 PM EDT AGE/SEX: 57 years / Male INDICATIONS: Peripheral vascular disease. Gangrenous right middle toe. CLINICAL DATA: This is the patient's initial encounter. Patient reports that signs and symptoms have been present for 1 week and indicates a pain score of 5/10. MEDICAL/SURGICAL HISTORY: Peripheral vascular disease. Cardiovascular disease. Diabetes. Appendec arik. RADIATION DOSE: 10.34 CTDI (mGy) COMPARISON: . TECHNIQUE: Volumetric scanning was performed using a multi-row detector CT scanner during bolus infu christina of 100 ml Omnipaque 350 (iohexol) nonionic water-soluble contrast as a single exam dose. The data was post processed with a variety of visualization algorithms including full volume maximum inte nsity projection, multi-planar sliding thin slab reformation, curved planar reformation, and surface rendering techniques. Using automated exposure control and adjustment of the mA and/or kV according to patient size, radiation dose was kept as low as reasonably achievable to obtain optimal diagnostic quality images. FINDINGS: Abdominal Aorta: Extensive atherosclerotic changes without aneurysmal dilation. The proximal celiac and superior mesenteric arteries are patent and normal in diameter. There are solitary renal arteri es bilaterally with atherosclerotic changes but no critical stenosis. Bifurcation: Atherosclerotic changes without aneurysm. Right Pelvis: The right common iliac, internal iliac, and external iliac vessels are patent without significant stenosis. Atherosclerotic changes are seen. Left Pelvis: The left common iliac, internal iliac, and external iliac vessels are patent and withou t significant stenosis. Atherosclerotic changes are seen. Right Thigh: The superficial femoral and profunda vessels demonstrates atherosclerotic changes witho ut significant stenosis. Left Thigh: The superficial femoral and profunda vessels demonstrates atherosclerotic changes withou t significant stenosis. Right Knee: The distal femoral and popliteal arteries demonstrates atherosclerotic changes without s ignificant stenosis. Left Knee: The distal femoral and popliteal arteries demonstrates atherosclerotic changes without si gnificant stenosis. Right Leg: The trifurcation is intact. Left Leg: The trifurcation is intact. CONCLUSION: 1. Atherosclerotic changes without significant stenosis bilateral lower extremities. Electronically signed by: Ronnie Alvarez MD 08/19/2017 3:12 PM EDT
[2017-08-19 15:22] LABS: HEMATOCRIT 43.6 % (39.0-51.0); HEMOGLOBIN 14.6 GM/DL (13.0-17.0); MEAN CELL VOLUME 81.3 FL (80.0-100.0); MEAN CORPUSCULAR HEMOGLOBIN 27.3 PG (27.0-34.0); MEAN CORPUSCULAR HGB CONC 33.6 % (32.0-36.0); MEAN PLATELET VOLUME 10.1 FL (7.0-11.0); PLATELET COUNT 102 TH/MM3 (150-450); RED BLOOD COUNT 5.36 MIL/MM3 (4.50-5.90); RED CELL DISTRIBUTION WIDTH 17.5 % (11.6-17.2); WHITE BLOOD COUNT 12.1 TH/MM3 (4.0-11.0)
[2017-08-19 15:35] LABS: INTERNATIONAL NORMALIZED RATIO 1.1 RATIO; PROTHROMBIN TIME - PATIENT 11.4 SEC (9.8-11.6)
--- NOTE | 2017-08-19 16:07 | HHI.IDPN ---
Subjective Subjective Remarks is a 57 y/o CM with PMHx of CHF, Ischemic Cardiomyopathy with last reported EF 20-25%, he has prior h/o CABG x 3, defibrillator and pacemaker, DM, HTN and hyperlipidemia. CT surgery evaluated and found him not to be a revascularization candidate and recommended referral to a tertiary center for transplant consideration. As the patient has no insurance this option has not been found feasible. He underwent placement of a single-chamber [place] ICD in May 2017 for sudden cardiac prevention. With this background patient presents to the ED at [facility] with 4 day history of progressive dyspnea described as severe, worsening with exertion, and improved with rest. He has had associated symptoms of diaphoresis, nausea and vomiting over the weekend. He additionally has noted painful changes in his right second toe with color changes suspicious for infection. In ED patient was noted to have WBC 9.6, hemoglobin 15.0, hematocrit 43.9, platelets 133, sodium 130, potassium 4.4, BUN 36, creatinine 1.84, random glucose 407 alkaline phosphatase 114, AST 37, ALT 25, total bilirubin 0.9, troponin 3.04, C-reactive protein 26.8, B natruretic peptide 3148, lactic acid 5.5. Ax Xray of Rt toe showed erosion. MRI with no osteomyelitis. Chest x-ray showed no acute abnormality or significant interval change. 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 He states that he is only able to be active for 5-10 minutes before becoming very dyspneic and exhausted. 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 He is now attempting to get disability as he has a nearly homebound existence and requires assistance to get out to doctor's appointments. Sepsis workup on admission positive for Staph bacteremia and ID consulted for evaluation and Mment of the same. Notes reviewed D/W RN Temps ok No rash No diarrhea All BC with MSSA persistent while on Ancef IV. Podiatry and vascular following for gangrene of his R 2nd toe Has cardiomyopathy S/P ICD placement May 2017 Has not had any problem with his ICD until in hospital Antibiotics Current Medications Medications (Trade) Dose Ordered Sig/Erika Route Start Time Stop Time Status Last Admin (NS Flush) 2 ml UNSCH PRN IVF 08/15/17 10:00 5/28/18 08:31 Heparin Sodium/ Dextrose 250 ml @ 10 mls/hr TITRATE PRN IV 08/15/17 11:45 Future Hold 08/16/17 16:19 (D50w (Vial) Inj) 50 ml UNSCH PRN IV PUSH 08/15/17 13:30 (Glucagon Inj) 1 mg UNSCH PRN OTHER 08/15/17 13:30 (NovoLOG SUPPLEMENTAL SCALE) 1 ACHS SLIDING SCALE SQ 08/15/17 17:00 08/19/17 11:51 (Pravachol) 40 mg DAILY PO 08/16/17 09:00 08/19/17 08:31 (Duoneb Neb) 1 ampule Q4HR NEB PRN NEB 08/15/17 13:45 08/15/17 15:38 (Tylenol) 650 mg Q4H PRN PO 08/15/17 14:30 08/18/17 11:45 (Bronte 5-325 Mg) 1 tab Q4H PRN PO 08/15/17 14:30 08/15/17 15:18 (Reglan Inj) 5 mg Q6H PRN IV PUSH 08/16/17 02:30 08/16/17 20:10 (Zofran Odt) 4 mg Q6H PRN PO 08/16/17 02:30 08/19/17 11:50 (Lopressor Inj) 5 mg Q5M PRN IV PUSH 08/16/17 02:45 08/16/17 03:06 (Levemir Inj) 10 units HS SQ 08/16/17 21:00 08/18/17 21:27 (Tessalon) 100 mg TID PRN PO 08/17/17 03:00 08/17/17 11:45 (Robitussin Ac 200-20 Mg/10 ml Liq) 10 ml Q6H PRN PO 08/17/17 03:00 (Coreg) 6.25 mg Q12HR PO 08/17/17 11:30 08/19/17 08:31 (Entresto 49-51 Mg) 1 tab BID PO 08/17/17 21:00 08/19/17 08:31 Cefazolin Sodium/ Dextrose 50 ml @ 100 mls/hr Q8H IV 08/18/17 09:00 08/19/17 08:32 (Aspirin Chew) 81 mg DAILY CHEW 08/19/17 12:10 08/19/17 12:10 Pharmacy Profile Note 0 ml @ 0 mls/hr UNSCH OTHER 08/19/17 11:15 Heparin Sodium/ Dextrose 250 ml @ 16.128 mls/ hr TITRATE PRN IV 08/19/17 12:30 08/19/17 14:41 Gentamicin Sulfate 90 mg/ Sodium Chloride 102.25 ml @ 200 mls/ hr Q8H IV 08/19/17 14:00 ([facility] Ordered Lab Info) SPECIFIC LAB TO BE SHERRON... ONCE ONCE .XX 08/20/17 13:45 08/20/17 13:46 ([facility] Ordered Lab Info) SPECIFIC LAB TO BE SHERRON... ONCE ONCE .XX 08/20/17 15:30 08/20/17 15:31 Lines PIV no evidence of infection Past Medical History Severe ischemic cardiomyopathy EF 20-25% Hyperlipidemia Diabetes Coronary artery disease status post [place] 06/04 COPD Past Surgical History CABG 10 years ago Pacemaker/Defibrillator insertion Appendectomy Skin graft to right foot as a child Back surgeries 3 has hardware in back per report. Allergies: Coded Allergies: potassium iodide (Unverified Allergy, Severe, Swelling, 06/12/17) povidone-iodine (Unverified Allergy, Severe, Swelling, 06/12/17) shellfish derived (Unverified Allergy, Severe, 06/12/17) sodium iodide (Unverified Allergy, Severe, Swelling, 06/12/17) sodium iodide (Unverified Allergy, Severe, Swelling, 06/12/17) Objective . Vital Signs Date Time Temp Pulse Resp B/P (MAP) Pulse Ox O2 Delivery O2 Flow Rate FiO2 08/19/17 12:00 83 08/19/17 12:00 98.4 82 16 119/72 (88) 100 08/19/17 11:00 74 08/19/17 10:00 84 08/19/17 09:00 84 08/19/17 08:00 76 08/19/17 08:00 98.2 84 16 110/65 (80) 97 08/19/17 07:00 74 08/19/17 06:15 74 08/19/17 05:45 85 08/19/17 04:59 79 18 108/76 (87) 98 08/19/17 04:04 83 08/19/17 01:01 78 08/19/17 00:35 74 08/19/17 00:04 74 16 113/76 (88) 93 08/19/17 00:00 74 08/18/17 23:00 84 08/18/17 22:00 80 08/18/17 21:00 84 08/18/17 20:54 97.4 87 16 134/81 (98) 98 08/18/17 20:30 87 08/18/17 20:00 84 08/18/17 19:00 78 08/18/17 18:00 78 08/18/17 17:00 74 . Laboratory Tests Test 08/18/17 05:10 08/19/17 04:05 08/19/17 14:25 White Blood Count 11.0 TH/MM3 12.4 TH/MM3 12.1 TH/MM3 Red Blood Count 5.00 MIL/MM3 5.20 MIL/MM3 5.36 MIL/MM3 Hemoglobin 13.6 GM/DL 14.2 GM/DL 14.6 GM/DL Hematocrit 40.3 % 42.0 % 43.6 % Mean Corpuscular Volume 80.5 FL 80.7 FL 81.3 FL Mean Corpuscular Hemoglobin 27.2 PG 27.3 PG 27.3 PG Mean Corpuscular Hemoglobin Concent 33.7 % 33.8 % 33.6 % Red Cell Distribution Width 17.4 % 17.0 % 17.5 % Platelet Count 64 TH/MM3 80 TH/MM3 102 TH/MM3 Mean Platelet Volume 10.7 FL 10.2 FL 10.1 FL Laboratory Tests Test 08/18/17 05:10 08/19/17 04:05 Blood Urea Nitrogen 32 MG/DL 28 MG/DL Creatinine 0.82 MG/DL 0.77 MG/DL Random Glucose 180 MG/DL 232 MG/DL Calcium Level 8.2 MG/DL 8.9 MG/DL Magnesium Level 2.7 MG/DL Sodium Level 137 MEQ/L 138 MEQ/L Potassium Level 3.9 MEQ/L 4.1 MEQ/L Chloride Level 103 MEQ/L 103 MEQ/L Carbon Dioxide Level 25.5 MEQ/L 26.8 MEQ/L Anion Gap 9 MEQ/L 8 MEQ/L Estimat Glomerular Filtration Rate 96 ML/MIN 103 ML/MIN Hemoglobin A1c 9.6 % B-Type Natriuretic Peptide 1210 PG/ML 847 PG/ML Microbiology Date/Time Source Procedure Growth Status 08/18/17 05:10 Blood Peripheral Aerobic Blood Culture - Preliminary Gram Positive Cocci Resulted 08/18/17 05:10 Blood Peripheral Anaerobic Blood Culture - Preliminary NO GROWTH IN 1 DAY Resulted 08/17/17 12:40 Blood Peripheral Aerobic Blood Culture - Preliminary Gram Positive Cocci Resulted 08/17/17 12:40 Blood Peripheral Anaerobic Blood Culture - Preliminary NO GROWTH IN 2 DAYS Resulted 08/17/17 12:20 Blood Peripheral Aerobic Blood Culture - Preliminary Gram Positive Cocci Resulted 08/17/17 12:20 Blood Peripheral Anaerobic Blood Culture - Preliminary NO GROWTH IN 2 DAYS Resulted 08/16/17 16:33 Blood Peripheral Aerobic Blood Culture - Final Staphylococcus Aureus Resulted 08/16/17 16:33 Blood Peripheral Anaerobic Blood Culture - Preliminary NO GROWTH IN 3 DAYS Resulted 08/16/17 16:15 Blood Peripheral Aerobic Blood Culture - Final Staphylococcus Aureus Resulted 08/16/17 16:15 Blood Peripheral Anaerobic Blood Culture - Preliminary NO GROWTH IN 3 DAYS Resulted Imaging Last Impressions Chest X-Ray 08/15/17 0955 Signed Impressions: CONCLUSION: 1. No acute abnormality or significant interval change. Toe X-Ray 08/15/17 0000 Signed Impressions: CONCLUSION: Questionable small erosion distal phalanx right second toe. This could be infec tious in nature if there is clinical evidence for soft tissue infection. Renal Ultrasound 08/15/17 0000 Signed Impressions: CONCLUSION: 1. No hydronephrosis. 2. Increased echogenicity most characteristic of medical renal disease. Foot MRI 08/15/17 Signed Impressions: CONCLUSION: 1. No evidence for osteomyelitis. Soft tissue swelling at the second toe. Physical Exam GENERAL: Awake and alert, NAD SKIN: No rashes or lesions. Cool and dry. HEAD: Atraumatic. Normocephalic. No temporal or scalp tenderness. EYES: Pupils equal round and reactive. Extraocular motions intact. No scleral icterus. No injection or drainage. ENT: Nose without bleeding, purulent drainage or septal hematoma. Throat without erythema, tonsillar hypertrophy or exudate. Uvula midline. Airway patent. NECK: Trachea midline. Supple, nontender, no meningeal signs. CARDIOVASCULAR: HS audible. ICD, has mild pink color on his L chest, not indurated, seems swollen, not tender, has well healed incision RESPIRATORY: Clear to auscultation. Breath sounds equal bilaterally. No wheezes , rales, or rhonchi. GASTROINTESTINAL: Abdomen soft, non-tender, nondistended. MUSCULOSKELETAL: Has wet gangrene Right 2nd toe with erythema on dorsum of his foot. NEUROLOGICAL: Grossly noon-focal. Psych cooperative IV line sites with no e.o infection. Assessment & Plan Remarks High grade MSSA Sepsis (leucocytosis, tachycardia, lactic acidemia) - source ?2nd toe, concern with ICD Right 2nd toe wet gangrene, osteomyelitis. Hepatitis C antibody positive. AICD status. CAD with severe ischemic cardiomyopathy. Thrombocytopenia likely due to severe infection, ?DIC Recs DC Zosyn IV Continue IV Ancef Add Genta IV for synergy pending BCX turning negative and source control. dw who dw : need for source control, concern for AICD infection due to persistent bacteremia. Repeat BC to document clearing after surgery. Echo negative. If persistent bacteremia after the surgery will need CARA to look for valve and AICD lead infection. Follow C/S Monitor progress D/W patient and family in room: explained the plan. discussed the need for IV antibiotics for 6 weeks irrespective of bone pathology results. Michelle Galan MD August 19, 2017 16:07
--- NOTE | 2017-08-19 16:26 | HHI.HCPN ---
Reason for visit a. To assist with evaluation and management of symptoms including: Dyspnea, pain b. To assist medical decision maker(s) with: better understanding of current medical conditions; weighing benefits/burdens of medical treatment options; making medical treatment decisions. Subjective/Interval History Patient seen to follow-up on management of dyspnea and pain. Patient had episodes of cardiac arrhythmias seen on ICD interrogation form to include 2 episodes of ventricular fibrillation, 3 episodes of ventricular tachycardia, 7 episodes of SVT, for nonsustained resulting in 5 shocks, antitachycardia pacing 3, all of which occurred between 1:33 AM and 2:10 AM. He complained of significant discomfort with this, as though a "metal box had exploded in his head". The pain was acute, sharp in vibrating, resolving quickly, severe in intensity. He denied any chest pain with these episodes but did have episodes of palpitations and dyspnea. He states that his dyspnea begins with a cough which exacerbates into dry heaving and then becomes chills and muscle stiffness. He has dyspnea on exertion, becoming fatigued after 5 minutes of activity requiring rest for several hours before he has recovered enough to resume activity. This occurs with walking or doing any light housework. . Family/friend interactions His significant other is at bedside during this discussion and events reviewed included the ICD shocks, cultures and sensitivity of his blood cultures, potential risks and consideration for possible transesophageal echocardiogram to evaluate for endocarditis. If endocarditis is discovered, there may also be consideration for ICD explantation pending clearing of the infection. As previously stated by Dr. Henao, he is not a candidate for revascularization and given his multiple comorbidities may not be a candidate for valve replacement if needed. . Advance Directives Living Will: Never completed Health Care Surrogate: Copy in medical record Durable Power of Honey Extractor: Never completed Advance Directive Specifics Date completed: 08/16/2017 Health Care Surrogate(s): Healthcare surrogate is Lisseth Drake, his significant other. He has made his sister, Michelle Ayon his alternate healthcare surrogate. . Documented care wishes: No living will completed. . Objective Vital Signs Date Time Temp Pulse Resp B/P (MAP) Pulse Ox O2 Delivery O2 Flow Rate FiO2 08/19/17 12:00 83 08/19/17 12:00 98.4 82 16 119/72 (88) 100 08/19/17 11:00 74 5/28/18 10:00 84 08/19/17 09:00 84 08/19/17 08:00 76 08/19/17 08:00 98.2 84 16 110/65 (80) 97 08/19/17 07:00 74 08/19/17 06:15 74 08/19/17 05:45 85 08/19/17 04:59 79 18 108/76 (87) 98 08/19/17 04:04 83 08/19/17 01:01 78 08/19/17 00:35 74 08/19/17 00:04 74 16 113/76 (88) 93 08/19/17 00:00 74 08/18/17 23:00 84 08/18/17 22:00 80 08/18/17 21:00 84 08/18/17 20:54 97.4 87 16 134/81 (98) 98 08/18/17 20:30 87 08/18/17 20:00 84 08/18/17 19:00 78 08/18/17 18:00 78 08/18/17 17:00 74 Intake & Output 08/19/17 08/19/17 07:00 19:00 Intake Total 240 ml Output Total 500 ml Balance -260 ml Intake Oral 240 ml Output Urine Total 500 ml Physical Exam CONSTITUTIONAL/GENERAL: This is an adequately nourished patient, in no apparent distress. TUBES/LINES/DRAINS: PIV bilateral SKIN: No jaundice, rashes, or lesions. No wounds seen anteriorly. Skin temperature appropriate. Not diaphoretic. HEAD: Atraumatic. Normocephalic. EYES: Pupils equal and round and reactive. Extraocular motions intact. No scleral icterus. No injection or drainage. Fundi not examined. ENT: Hearing grossly normal. Nose without bleeding or purulent drainage. Throat without visible erythema, exudates, masses, or lesions. NECK: Trachea midline. Supple, nontender. No palpable thyroid enlargement or nodularity. CARDIOVASCULAR: Regular rate and rhythm without murmurs, gallops, or rubs. No JVD. Peripheral pulses symmetric. RESPIRATORY/CHEST: Symmetric, unlabored respirations. Clear to auscultation. Breath sounds equal bilaterally. No wheezes, rales, or rhonchi. GASTROINTESTINAL: Abdomen soft, non-tender, nondistended. No hepato-splenomegaly , or palpable masses. No guarding. Bowel sounds present. GENITOURINARY: Without palpable bladder distension. MUSCULOSKELETAL: Extremities without clubbing, cyanosis, or edema. No joint tenderness or effusion noted. No calf tenderness. No mottling or clubbing. Right second toe black, shriveled, with third toe involvement. LYMPHATICS: No palpable cervical or supraclavicular adenopathy. NEUROLOGICAL: Awake and alert. Motor and sensory grossly within normal limits. Follows commands. Cognitively sharp. Moves all extremities. PSYCHIATRIC: No obvious anxiety/depression. no apparent hallucinations or other psychotic thought process. . Diagnostic Tests Laboratory Laboratory Tests Test 08/16/17 16:30 08/16/17 19:35 08/17/17 02:54 08/17/17 09:10 Hepatitis A IgM Antibody NONREACTIVE (NONREACTIVE) Hepatitis B Surface Antigen NONREACTIVE (NONREACTIVE) Hepatitis B Core IgM Antibody NONREACTIVE (NONREACTIVE) Hepatitis C IgG Antibody REACTIVE (NONREACTIVE) HIV (1&2) Ab and P24 Ag, 4th Gener NONREACTIVE (NONREACTIVE) Activated Partial Thromboplast Time 23.9 SEC (24.3-30.1) 32.2 SEC (24.3-30.1) 36.9 SEC (24.3-30.1) White Blood Count 13.2 TH/MM3 (4.0-11.0) Red Blood Count 5.26 MIL/MM3 (4.50-5.90) Hemoglobin 14.5 GM/DL (13.0-17.0) Hematocrit 42.9 % (39.0-51.0) Mean Corpuscular Volume 81.5 FL (80.0-100.0) Mean Corpuscular Hemoglobin 27.5 PG (27.0-34.0) Mean Corpuscular Hemoglobin Concent 33.7 % (32.0-36.0) Red Cell Distribution Width 17.2 % (11.6-17.2) Platelet Count 69 TH/MM3 (150-450) Mean Platelet Volume 10.0 FL (7.0-11.0) Neutrophils (%) (Auto) 84.9 % (16.0-70.0) Lymphocytes (%) (Auto) 4.6 % (9.0-44.0) Monocytes (%) (Auto) 9.5 % (0.0-8.0) Eosinophils (%) (Auto) 0.8 % (0.0-4.0) Basophils (%) (Auto) 0.2 % (0.0-2.0) Neutrophils # (Auto) 11.2 TH/MM3 (1.8-7.7) Lymphocytes # (Auto) 0.6 TH/MM3 (1.0-4.8) Monocytes # (Auto) 1.2 TH/MM3 (0-0.9) Eosinophils # (Auto) 0.1 TH/MM3 (0-0.4) Basophils # (Auto) 0.0 TH/MM3 (0-0.2) CBC Comment AUTO DIFF Differential Total Cells Counted 100 Neutrophils % (Manual) 88 % (16-70) Band Neutrophils % 3 % (0-6) Lymphocytes % 5 % (9-44) Monocytes % 4 % (0-8) Neutrophils # (Manual) 12.0 TH/MM3 (1.8-7.7) Nucleated Red Blood Cells 1 /100 WBC (0-0) Differential Comment FINAL DIFF MANUAL Toxic Vacuolation PRESENT (NONE SEEN) Platelet Estimate LOW (NORMAL) Platelet Morphology Comment NORMAL (NORMAL) Blood Urea Nitrogen 39 MG/DL (7-18) Creatinine 1.16 MG/DL (0.60-1.30) Random Glucose 245 MG/DL (74-106) Calcium Level 8.3 MG/DL (8.5-10.1) Sodium Level 139 MEQ/L (136-145) Potassium Level 3.7 MEQ/L (3.5-5.1) Chloride Level 103 MEQ/L (98-107) Carbon Dioxide Level 20.1 MEQ/L (21.0-32.0) Anion Gap 16 MEQ/L (5-15) Estimat Glomerular Filtration Rate 64 ML/MIN (>89) Test 08/17/17 09:50 08/17/17 15:47 08/17/17 22:09 08/18/17 05:10 B-Type Natriuretic Peptide 632 PG/ML (0-100) 1210 PG/ML (0-100) Activated Partial Thromboplast Time 36.6 SEC (24.3-30.1) 39.4 SEC (24.3-30.1) White Blood Count 11.0 TH/MM3 (4.0-11.0) Red Blood Count 5.00 MIL/MM3 (4.50-5.90) Hemoglobin 13.6 GM/DL (13.0-17.0) Hematocrit 40.3 % (39.0-51.0) Mean Corpuscular Volume 80.5 FL (80.0-100.0) Mean Corpuscular Hemoglobin 27.2 PG (27.0-34.0) Mean Corpuscular Hemoglobin Concent 33.7 % (32.0-36.0) Red Cell Distribution Width 17.4 % (11.6-17.2) Platelet Count 64 TH/MM3 (150-450) Mean Platelet Volume 10.7 FL (7.0-11.0) Blood Urea Nitrogen 32 MG/DL (7-18) Creatinine 0.82 MG/DL (0.60-1.30) Random Glucose 180 MG/DL (74-106) Calcium Level 8.2 MG/DL (8.5-10.1) Magnesium Level 2.7 MG/DL (1.5-2.5) Sodium Level 137 MEQ/L (136-145) Potassium Level 3.9 MEQ/L (3.5-5.1) Chloride Level 103 MEQ/L (98-107) Carbon Dioxide Level 25.5 MEQ/L (21.0-32.0) Anion Gap 9 MEQ/L (5-15) Estimat Glomerular Filtration Rate 96 ML/MIN (>89) Hemoglobin A1c 9.6 % (4.3-6.0) Heparin-Induced Platelet Ab (Lina) NEGATIVE (NEGATIVE) HIPA Patient Optical Density 0.041 O.D. (0.000-0.300) Test 08/18/17 10:54 08/19/17 04:05 08/19/17 14:25 Fibrinogen 392 mg/dL (227-377) D-Dimer Quantitative (PE/DVT) 1.19 MG/L FEU (0.00-0.50) White Blood Count 12.4 TH/MM3 (4.0-11.0) 12.1 TH/MM3 (4.0-11.0) Red Blood Count 5.20 MIL/MM3 (4.50-5.90) 5.36 MIL/MM3 (4.50-5.90) Hemoglobin 14.2 GM/DL (13.0-17.0) 14.6 GM/DL (13.0-17.0) Hematocrit 42.0 % (39.0-51.0) 43.6 % (39.0-51.0) Mean Corpuscular Volume 80.7 FL (80.0-100.0) 81.3 FL (80.0-100.0) Mean Corpuscular Hemoglobin 27.3 PG (27.0-34.0) 27.3 PG (27.0-34.0) Mean Corpuscular Hemoglobin Concent 33.8 % (32.0-36.0) 33.6 % (32.0-36.0) Red Cell Distribution Width 17.0 % (11.6-17.2) 17.5 % (11.6-17.2) Platelet Count 80 TH/MM3 (150-450) 102 TH/MM3 (150-450) Mean Platelet Volume 10.2 FL (7.0-11.0) 10.1 FL (7.0-11.0) Blood Urea Nitrogen 28 MG/DL (7-18) Creatinine 0.77 MG/DL (0.60-1.30) Random Glucose 232 MG/DL (74-106) Calcium Level 8.9 MG/DL (8.5-10.1) Sodium Level 138 MEQ/L (136-145) Potassium Level 4.1 MEQ/L (3.5-5.1) Chloride Level 103 MEQ/L (98-107) Carbon Dioxide Level 26.8 MEQ/L (21.0-32.0) Anion Gap 8 MEQ/L (5-15) Estimat Glomerular Filtration Rate 103 ML/MIN (>89) B-Type Natriuretic Peptide 847 PG/ML (0-100) Prothrombin Time 11.4 SEC (9.8-11.6) Prothromb Time International Ratio 1.1 RATIO Activated Partial Thromboplast Time 24.1 SEC (24.3-30.1) Result Diagram: 08/19/17 1425 08/19/17 0405 Microbiology Microbiology Date/Time Source Procedure Growth Status 08/18/17 05:10 Blood Peripheral Aerobic Blood Culture - Preliminary Gram Positive Cocci Resulted 08/18/17 05:10 Blood Peripheral Anaerobic Blood Culture - Preliminary NO GROWTH IN 1 DAY Resulted 08/17/17 12:40 Blood Peripheral Aerobic Blood Culture - Preliminary Gram Positive Cocci Resulted 08/17/17 12:40 Blood Peripheral Anaerobic Blood Culture - Preliminary NO GROWTH IN 2 DAYS Resulted 08/17/17 12:20 Blood Peripheral Aerobic Blood Culture - Preliminary Gram Positive Cocci Resulted 08/17/17 12:20 Blood Peripheral Anaerobic Blood Culture - Preliminary NO GROWTH IN 2 DAYS Resulted 08/16/17 16:33 Blood Peripheral Aerobic Blood Culture - Final Staphylococcus Aureus Resulted 08/16/17 16:33 Blood Peripheral Anaerobic Blood Culture - Preliminary NO GROWTH IN 3 DAYS Resulted 08/16/17 16:15 Blood Peripheral Aerobic Blood Culture - Final Staphylococcus Aureus Resulted 08/16/17 16:15 Blood Peripheral Anaerobic Blood Culture - Preliminary NO GROWTH IN 3 DAYS Resulted Imaging Last Impressions Aorta w/Runoff CTA 08/19/17 0000 Signed Impressions: CONCLUSION: 1. Atherosclerotic changes without significant stenosis bilateral lower extrem ities. Chest X-Ray 08/15/17 0955 Signed Impressions: CONCLUSION: 1. No acute abnormality or significant interval change. Toe X-Ray 08/15/17 0000 Signed Impressions: CONCLUSION: Questionable small erosion distal phalanx right second toe. This could be infec tious in nature if there is clinical evidence for soft tissue infection. Renal Ultrasound 08/15/17 Signed Impressions: CONCLUSION: 1. No hydronephrosis. 2. Increased echogenicity most characteristic of medical renal disease. Foot MRI 08/15/17 Signed Impressions: CONCLUSION: 1. No evidence for osteomyelitis. Soft tissue swelling at the second toe. Assessment and Plan Disease Oriented Problem List: (1) Multi-vessel coronary artery stenosis (2) Pulmonary HTN (3) gangrene of the right second toe (4) Cardiomyopathy (5) Acute renal failure (6) Diabetes mellitus (7) Hypertension (8) Hyperlipidemia Symptom Scale: (1) Pain, generalized (2) Dyspnea and respiratory abnormalities (3) Vomiting Pertinent Non-Medical Issues Psychosocial:He was born in [place] and moved to [place] before he was 8 years old. 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 He has never been and has no children. He has a significant other whom he has made a healthcare surrogate. He was in the service but did not serve during more time. Spiritual: He is Church and would accept dental laboratory manager visits. Legal: Healthcare surrogate paperwork has been completed naming his significant other as his primary and his sister is secondary. Ethical issues impacting care: None noted. . Important Contacts Significant other : Lisseth Vidal Brother: Nick Fitzpatrick Sister: Michelle Ayon , cell . Prognosis His prognosis is poor. He has a severely reduced ejection fraction of 20-25% with ischemic cardiomyopathy not a candidate for revascularization. He was referred to a tertiary center for transplant however does not have the insurance funding to do that. He is on maximal medical therapy and his symptoms remain uncontrolled. He has had for admissions to [facility] so far this year and is likely to continue to have frequent readmissions, complications and decline. . Code Status: Full Code (By default) Plan PLAN: Legal decision maker: Patient is currently capacitated to make his own decisions, but in the event that he becomes incapacitated, he has completed a healthcare surrogate form naming his significant other Lisseth as the primary healthcare surrogate and his sister Michelle, as the alternate. Goals: To be determined. CODE STATUS: FULL CODE, by default. SYMPTOMS: * Dyspnea: He complained of significant dyspnea at home with frequent coughing spells, severe enough to cause him to vomit. His dyspnea is under better control on 2 L nasal cannula, DuoNeb treatments. He is currently on optimal cardiac medications with improved dyspnea at rest. * Pain: Multifactorial to include right second toe infection, ICD shocks and non -STEMI on admission secondary to metabolic demands, bedbound status and invasive lines. [place] 5/325 mg is available but used infrequently. At this evaluation, his pain is under control. He is pending amputation of 1-2 toes tomorrow and will likely have a higher pain level. Palliative care will continue to follow the patient during hospital course as condition evolves, to assist patient/decision-maker with understanding of their medical conditions, weighing benefits/burdens of treatment options, for clarification of goals of treatment. Additionally will assist with any symptoms of palliative concern. . Attestation To help prompt me to consider important information that might be impacting today's encounter and assessment, information from prior notes written by myself or my colleagues may have been "brought forward" into today's note. My signature on this note, however, is an attestation that I personally performed the exam, history, and/or decision-making noted today, and, unless otherwise indicated, the interactions with patient, family, and staff as well as the review of records all occurred today. I also attest that the listed assessment and stated plan reflect my best clinical judgment today based on the combination of historical information, prior notes, and today's exam/ interactions. When time spent is documented, it refers only to time spent today by the signer, or if indicated, combined time spent today by collaborating physician/nurse practitioner. . Trista Pisaon August 19, 2017 4:26 pm
[2017-08-19] MEDS: ACETAMINOPHEN/HYDROcodone 325 MG/5 MG TAB PO PRN (16:28)
--- NOTE | 2017-08-19 18:47 | PD.POD ---
Subjective Podiatric Problems Gangrene right 2nd toe Past Med/Surg/Social History Social History Smoking Status: Former Smoker Objective Vital Signs Vital Signs Date Time Temp Pulse Resp B/P (MAP) Pulse Ox O2 Delivery O2 Flow Rate FiO2 08/19/17 18:00 78 08/19/17 17:24 16 08/19/17 17:00 82 08/19/17 16:00 98.2 81 16 132/78 (96) 96 08/19/17 16:00 83 08/19/17 15:00 84 08/19/17 13:00 76 08/19/17 12:00 83 08/19/17 12:00 98.4 82 16 119/72 (88) 100 08/19/17 11:00 74 08/19/17 10:00 84 08/19/17 09:00 84 08/19/17 08:00 76 08/19/17 08:00 98.2 84 16 110/65 (80) 97 08/19/17 07:00 74 08/19/17 06:15 74 08/19/17 05:45 85 08/19/17 04:59 79 18 108/76 (87) 98 08/19/17 04:04 83 08/19/17 01:01 78 08/19/17 00:35 74 08/19/17 00:04 74 16 113/76 (88) 93 08/19/17 00:00 74 08/18/17 23:00 84 08/18/17 22:00 80 08/18/17 21:00 84 08/18/17 20:54 97.4 87 16 134/81 (98) 98 08/18/17 20:30 87 08/18/17 20:00 84 08/18/17 19:00 78 Coded Allergies: potassium iodide (Unverified Allergy, Severe, Swelling, 06/12/17) povidone-iodine (Unverified Allergy, Severe, Swelling, 06/12/17) shellfish derived (Unverified Allergy, Severe, 06/12/17) sodium iodide (Unverified Allergy, Severe, Swelling, 06/12/17) sodium iodide (Unverified Allergy, Severe, Swelling, 06/12/17) Objective Remarks Right 2nd digit dark and mummified distally. Margins just distal to MTP joint level appear dry and stable. No drainage, no malodor. No sign of active infection present. Assessment & Plan A/P Gangrene right 2nd toe To OR tomorrow for amputation right 2nd toe. NPO after breakfast Plan to do surgery under local anesthesia to reduce risk Ron Goldman DPM August 19, 2017 18:47
--- NOTE | 2017-08-19 19:44 | PD.CARD.PN ---
Subjective Subjective Remarks appears comfortable in nad Objective Medications Current Medications Medications (Trade) Dose Ordered Sig/Erika Route Start Time Stop Time Status Last Admin (NS Flush) 2 ml UNSCH PRN IVF 08/15/17 10:00 08/19/17 08:31 Heparin Sodium/ Dextrose 250 ml @ 10 mls/hr TITRATE PRN IV 08/15/17 11:45 Future Hold 08/16/17 16:19 (D50w (Vial) Inj) 50 ml UNSCH PRN IV PUSH 08/15/17 13:30 (Glucagon Inj) 1 mg UNSCH PRN OTHER 08/15/17 13:30 (NovoLOG SUPPLEMENTAL SCALE) 1 ACHS SLIDING SCALE SQ 08/15/17 17:00 08/19/17 16:26 (Pravachol) 40 mg DAILY PO 08/16/17 09:00 08/19/17 08:31 (Duoneb Neb) 1 ampule Q4HR NEB PRN NEB 08/15/17 13:45 08/15/17 15:38 (Tylenol) 650 mg Q4H PRN PO 08/15/17 14:30 08/18/17 11:45 ([place] 5-325 Mg) 1 tab Q4H PRN PO 08/15/17 14:30 08/19/17 16:28 (Reglan Inj) 5 mg Q6H PRN IV PUSH 08/16/17 02:30 08/16/17 20:10 (Zofran Odt) 4 mg Q6H PRN PO 08/16/17 02:30 08/19/17 11:50 (Lopressor Inj) 5 mg Q5M PRN IV PUSH 08/16/17 02:45 08/16/17 03:06 (Levemir Inj) 10 units HS SQ 08/16/17 21:00 08/18/17 21:27 (Tessalon) 100 mg TID PRN PO 08/17/17 03:00 08/17/17 11:45 (Robitussin Ac 200-20 Mg/10 ml Liq) 10 ml Q6H PRN PO 08/17/17 03:00 (Coreg) 6.25 mg Q12HR PO 08/17/17 11:30 08/19/17 08:31 (Entresto 49-51 Mg) 1 tab BID PO 08/17/17 21:00 08/19/17 08:31 Cefazolin Sodium/ Dextrose 50 ml @ 100 mls/hr Q8H IV 08/18/17 09:00 08/19/17 16:26 (Aspirin Chew) 81 mg DAILY CHEW 08/19/17 12:10 08/19/17 12:10 Pharmacy Profile Note 0 ml @ 0 mls/hr UNSCH OTHER 08/19/17 11:15 Heparin Sodium/ Dextrose 250 ml @ 16.128 mls/ hr TITRATE PRN IV 08/19/17 12:30 08/19/17 14:41 Gentamicin Sulfate 90 mg/ Sodium Chloride 102.25 ml @ 200 mls/ hr Q8H IV 08/19/17 14:00 08/19/17 14:00 ([facility] Lab Info) SPECIFIC LAB TO BE SHERRON... ONCE ONCE .XX 08/20/17 13:45 08/20/17 13:46 ([facility] Ordered Lab Info) SPECIFIC LAB TO BE SHERRON... ONCE ONCE .XX 08/20/17 15:30 08/20/17 15:31 Vital Signs / I&O Vital Signs Date Time Temp Pulse Resp B/P (MAP) Pulse Ox O2 Delivery O2 Flow Rate FiO2 08/19/17 18:00 78 08/19/17 17:24 16 08/19/17 17:00 82 08/19/17 16:00 98.2 81 16 132/78 (96) 96 08/19/17 16:00 83 08/19/17 15:00 84 08/19/17 13:00 76 08/19/17 12:00 83 08/19/17 12:00 98.4 82 16 119/72 (88) 100 08/19/17 11:00 74 08/19/17 10:00 84 08/19/17 09:00 84 08/19/17 08:00 76 08/19/17 08:00 98.2 84 16 110/65 (80) 97 08/19/17 07:00 74 08/19/17 06:15 74 08/19/17 05:45 85 08/19/17 04:59 79 18 108/76 (87) 98 08/19/17 04:04 83 08/19/17 01:01 78 08/19/17 00:35 74 08/19/17 00:04 74 16 113/76 (88) 93 08/19/17 00:00 74 08/18/17 23:00 84 08/18/17 22:00 80 08/18/17 21:00 84 08/18/17 20:54 97.4 87 16 134/81 (98) 98 08/18/17 20:30 87 08/18/17 20:00 84 I/O 08/18/17 08/18/17 08/18/17 08/19/17 08/19/17 08/19/17 07:00 15:00 23:00 07:00 15:00 23:00 Intake Total 525 ml 200 ml 1290 ml 240 ml 1040 ml Output Total 600 ml 1025 ml 500 ml 950 ml Balance -75 ml 200 ml 265 ml -260 ml 90 ml Intake Oral 240 ml 1290 ml 240 ml 620 ml IV Total 285 ml 200 ml 420 ml Output Urine Total 600 ml 1025 ml 500 ml 950 ml # Bowel Movements 1 1 Physical Exam GENERAL: SKIN: Warm and dry. HEAD: Normocephalic. EYES: No scleral icterus. No injection or drainage. NECK: Supple, trachea midline. No JVD or lymphadenopathy. CARDIOVASCULAR: Regular rate and rhythm without murmurs, gallops, or rubs. RESPIRATORY: Breath sounds equal bilaterally. No accessory muscle use. GASTROINTESTINAL: Abdomen soft, non-tender, nondistended. MUSCULOSKELETAL: No cyanosis, or edema. BACK: Nontender without obvious deformity. No CVA tenderness. Laboratory Laboratory Tests Test 08/19/17 04:05 08/19/17 14:25 White Blood Count 12.4 TH/MM3 12.1 TH/MM3 Red Blood Count 5.20 MIL/MM3 5.36 MIL/MM3 Hemoglobin 14.2 GM/DL 14.6 GM/DL Hematocrit 42.0 % 43.6 % Mean Corpuscular Volume 80.7 FL 81.3 FL Mean Corpuscular Hemoglobin 27.3 PG 27.3 PG Mean Corpuscular Hemoglobin Concent 33.8 % 33.6 % Red Cell Distribution Width 17.0 % 17.5 % Platelet Count 80 TH/MM3 102 TH/MM3 Mean Platelet Volume 10.2 FL 10.1 FL Blood Urea Nitrogen 28 MG/DL Creatinine 0.77 MG/DL Random Glucose 232 MG/DL Calcium Level 8.9 MG/DL Sodium Level 138 MEQ/L Potassium Level 4.1 MEQ/L Chloride Level 103 MEQ/L Carbon Dioxide Level 26.8 MEQ/L Anion Gap 8 MEQ/L Estimat Glomerular Filtration Rate 103 ML/MIN B-Type Natriuretic Peptide 847 PG/ML Prothrombin Time 11.4 SEC Prothromb Time International Ratio 1.1 RATIO Activated Partial Thromboplast Time 24.1 SEC Imaging Last 24 hours Impressions Aorta w/Runoff CTA 08/19/17 0000 Signed Impressions: CONCLUSION: 1. Atherosclerotic changes without significant stenosis bilateral lower extrem ities. Assessment and Plan Problem List: (1) ARF (acute renal failure) ICD Codes: N17.9 - Acute kidney failure, unspecified (2) NSTEMI (non-ST elevated myocardial infarction) ICD Codes: I21.4 - Non-ST elevation (NSTEMI) myocardial infarction (3) CAD (coronary artery disease) ICD Codes: I25.10 - Atherosclerotic heart disease of [place] coronary artery without angina pectoris (4) Decreased cardiac ejection fraction ICD Codes: R93.1 - Abnormal findings on diagnostic imaging of heart and coronary circulation (5) Elevated troponin ICD Codes: R74.8 - Abnormal levels of other serum enzymes (6) Severe sepsis ICD Codes: A41.9 - Sepsis, unspecified organism; R65.20 - Severe sepsis without septic shock (7) Diabetes mellitus ICD Codes: E11.9 - Type 2 diabetes mellitus without complications (8) Acute renal failure ICD Codes: N17.9 - Acute kidney failure, unspecified (9) Cardiomyopathy ICD Codes: I42.9 - Cardiomyopathy, unspecified (10) gangrene of the right second toe (11) Dyspnea and respiratory abnormalities ICD Codes: R06.00 - Dyspnea, unspecified; R06.89 - Other abnormalities of breathing (12) Multi-vessel coronary artery stenosis ICD Codes: I25.10 - Atherosclerotic heart disease of [place] coronary artery without angina pectoris (13) Hx of CABG ICD Codes: Z95.1 - Presence of aortocoronary bypass graft (14) Thrombocytopenia ICD Codes: D69.6 - Thrombocytopenia, unspecified Assessment and Plan 1.) Ischemic cardiomyopathy - nstemi, chf excacerbation and arf due to severe unrevascularizable cad, cardiomyopathy and high metabolic demand from sepsis, off iv heparin and aspirin due to thrombocytopenia, hematology consult placed, on antibiotics, noncardiac procedure is high risk due to multiple unstable comorbidities and nstemi 2.) VT - replete electrolytes, on coreg; d/w case management further attempts to insure and obtain eligibility for referral to heart transplant center Garrett Henao MD August 19, 2017 19:44
[2017-08-19] MEDS: INSULIN DETEMIR 100 UNITS/ML VIAL SQ SCH (21:00)
[2017-08-20] VITALS (27 sets, daily range): BP systolic 82–124; BP diastolic 53–82; PULSE 68–82; RESP 16–20; TEMP 98–98.3; O2SAT 92–98
[2017-08-20] MEDS: ceFAZolin 2 GM PREMIX 50 ML IV SCH ×3 (01:25→17:30)
[2017-08-20] MEDS: BENZONATATE 100 MG CAP PO PRN (02:00)
[2017-08-20] MEDS: HEPARIN-D5W 25,000 U/250 ML 250 ML IV PRN ×2 (03:26→18:54)
[2017-08-20 03:35] LABS: AUTOMATED NEUTROPHIL # 7.3 TH/MM3 (1.8-7.7); BASOPHIL # 0.2 TH/MM3 (0-0.2); BASOPHIL % 1.3 % (0.0-2.0); EOSINOPHIL # 0.2 TH/MM3 (0-0.4); EOSINOPHIL % 1.7 % (0.0-4.0); HEMATOCRIT 39.5 % (39.0-51.0); HEMOGLOBIN 13.4 GM/DL (13.0-17.0); LYMPH % 19.1 % (9.0-44.0); LYMPHOCYTE # 2.2 TH/MM3 (1.0-4.8); MEAN CELL VOLUME 79.8 FL (80.0-100.0); MEAN CORPUSCULAR HEMOGLOBIN 27.1 PG (27.0-34.0); MEAN PLATELET VOLUME 9.4 FL (7.0-11.0); MONO % 13.3 % (0.0-8.0); MONOCYTE # 1.5 TH/MM3 (0-0.9); NEUT % 64.6 % (16.0-70.0); PLATELET COUNT 98 TH/MM3 (150-450); RED BLOOD COUNT 4.95 MIL/MM3 (4.50-5.90); RED CELL DISTRIBUTION WIDTH 17.1 % (11.6-17.2); WHITE BLOOD COUNT 11.3 TH/MM3 (4.0-11.0)
[2017-08-20 04:00] LABS: CREATININE 0.73 MG/DL (0.60-1.30)
[2017-08-20] MEDS: GENTAMICIN INJ 90 MG in SODIUM CHLORIDE 0.9% INJ 100 ML IV SCH ×3 (05:26→22:30)
--- NOTE | 2017-08-20 08:03 | HHI.IDPN ---
Subjective Subjective Remarks Patient seen and examined on behalf of Dr. Galan is a 57 y/o CM with PMHx of CHF, Ischemic Cardiomyopathy with last reported EF 20-25%, he has prior h/o CABG x 3, defibrillator and pacemaker, DM, HTN and hyperlipidemia. CT surgery evaluated and found him not to be a revascularization candidate and recommended referral to a tertiary center for transplant consideration. As the patient has no insurance this option has not been found feasible. He underwent placement of a single-chamber [place] ICD in May 2017 for sudden cardiac prevention. With this background patient presents to the ED at [facility] with 4 day history of progressive dyspnea described as severe, worsening with exertion, and improved with rest. He has had associated symptoms of diaphoresis, nausea and vomiting over the weekend. He additionally has noted painful changes in his right second toe with color changes suspicious for infection. In ED patient was noted to have WBC 9.6, hemoglobin 15.0, hematocrit 43.9, platelets 133, sodium 130, potassium 4.4, BUN 36, creatinine 1.84, random glucose 407 alkaline phosphatase 114, AST 37, ALT 25, total bilirubin 0.9, troponin 3.04, C-reactive protein 26.8, B natruretic peptide 3148, lactic acid 5.5. Ax Xray of Rt toe showed erosion. MRI with no osteomyelitis. Chest x-ray showed no acute abnormality or significant interval change. 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 He states that he is only able to be active for 5-10 minutes before becoming very dyspneic and exhausted. 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 He is now attempting to get disability as he has a nearly homebound existence and requires assistance to get out to doctor's appointments. Sepsis workup on admission positive for Staph bacteremia and ID consulted for evaluation and Mment of the same. Notes reviewed scheduled for OR at 1700 no fever +mild cough with small amount of whitish sputum production no sob lying in bed no rash no dysuria No diarrhea afebrile WBC 11.3 All BC with MSSA persistent while on Ancef IV. Podiatry and vascular following for gangrene of his R 2nd toe CTA runoff with atherosclerotic changes no sig stenosis BLE + cardiomyopathy, likely CHF exacerbation with BNP of 1210 S/P ICD placement May 2017 Has not had any problem with his ICD until in hospital Antibiotics IV Gent IV Ancef Lines PIV no evidence of infection Past Medical History Severe ischemic cardiomyopathy EF 20-25% Hyperlipidemia Diabetes Coronary artery disease status post [facility] 06/04 COPD Past Surgical History CABG 10 years ago Pacemaker/Defibrillator insertion Appendectomy Skin graft to right foot as a child Back surgeries 3 has hardware in back per report. (Damaris Drummond) Allergies: Coded Allergies: potassium iodide (Unverified Allergy, Severe, Swelling, 06/12/17) povidone-iodine (Unverified Allergy, Severe, Swelling, 06/12/17) shellfish derived (Unverified Allergy, Severe, 06/12/17) sodium iodide (Unverified Allergy, Severe, Swelling, 06/12/17) sodium iodide (Unverified Allergy, Severe, Swelling, 06/12/17) Objective . Vital Signs Date Time Temp Pulse Resp B/P (MAP) Pulse Ox O2 Delivery O2 Flow Rate FiO2 08/20/17 06:00 82 08/20/17 05:00 80 08/20/17 04:00 68 08/20/17 03:29 98.1 68 20 124/82 (96) 95 08/20/17 03:00 75 08/20/17 02:00 72 08/20/17 01:00 76 08/20/17 00:00 76 08/19/17 23:10 98.8 72 18 118/67 (84) 97 08/19/17 23:00 75 08/19/17 22:00 84 08/19/17 21:00 74 08/19/17 20:34 98.8 73 19 123/77 (92) 98 08/19/17 20:00 80 08/19/17 19:00 74 08/19/17 18:00 78 08/19/17 17:24 16 08/19/17 17:00 82 08/19/17 16:00 98.2 81 16 132/78 (96) 96 08/19/17 16:00 83 08/19/17 15:00 84 08/19/17 13:00 76 08/19/17 12:00 83 08/19/17 12:00 98.4 82 16 119/72 (88) 100 08/19/17 11:00 74 08/19/17 10:00 84 08/19/17 09:00 84 08/19/17 08:00 76 08/19/17 08:00 98.2 84 16 110/65 (80) 97 . Laboratory Tests Test 08/19/17 04:05 08/19/17 14:25 08/20/17 03:23 White Blood Count 12.4 TH/MM3 12.1 TH/MM3 11.3 TH/MM3 Red Blood Count 5.20 MIL/MM3 5.36 MIL/MM3 4.95 MIL/MM3 Hemoglobin 14.2 GM/DL 14.6 GM/DL 13.4 GM/DL Hematocrit 42.0 % 43.6 % 39.5 % Mean Corpuscular Volume 80.7 FL 81.3 FL 79.8 FL Mean Corpuscular Hemoglobin 27.3 PG 27.3 PG 27.1 PG Mean Corpuscular Hemoglobin Concent 33.8 % 33.6 % 34.0 % Red Cell Distribution Width 17.0 % 17.5 % 17.1 % Platelet Count 80 TH/MM3 102 TH/MM3 98 TH/MM3 Mean Platelet Volume 10.2 FL 10.1 FL 9.4 FL Neutrophils (%) (Auto) 64.6 % Lymphocytes (%) (Auto) 19.1 % Monocytes (%) (Auto) 13.3 % Eosinophils (%) (Auto) 1.7 % Basophils (%) (Auto) 1.3 % Neutrophils # (Auto) 7.3 TH/MM3 Lymphocytes # (Auto) 2.2 TH/MM3 Monocytes # (Auto) 1.5 TH/MM3 Eosinophils # (Auto) 0.2 TH/MM3 Basophils # (Auto) 0.2 TH/MM3 CBC Comment DIFF FINAL Differential Comment Laboratory Tests Test 08/19/17 04:05 08/20/17 03:23 Blood Urea Nitrogen 28 MG/DL Creatinine 0.77 MG/DL 0.73 MG/DL Random Glucose 232 MG/DL Calcium Level 8.9 MG/DL Sodium Level 138 MEQ/L Potassium Level 4.1 MEQ/L Chloride Level 103 MEQ/L Carbon Dioxide Level 26.8 MEQ/L Anion Gap 8 MEQ/L Estimat Glomerular Filtration Rate 103 ML/MIN 110 ML/MIN B-Type Natriuretic Peptide 847 PG/ML Microbiology Date/Time Source Procedure Growth Status 08/18/17 05:10 Blood Peripheral Aerobic Blood Culture - Preliminary Gram Positive Cocci Resulted 08/18/17 05:10 Blood Peripheral Anaerobic Blood Culture - Preliminary NO GROWTH IN 1 DAY Resulted 08/17/17 12:40 Blood Peripheral Aerobic Blood Culture - Preliminary Gram Positive Cocci Resulted 08/17/17 12:40 Blood Peripheral Anaerobic Blood Culture - Preliminary NO GROWTH IN 2 DAYS Resulted 08/17/17 12:20 Blood Peripheral Aerobic Blood Culture - Preliminary Gram Positive Cocci Resulted 08/17/17 12:20 Blood Peripheral Anaerobic Blood Culture - Preliminary NO GROWTH IN 2 DAYS Resulted Imaging Last Impressions Aorta w/Runoff CTA 08/19/17 0000 Signed Impressions: CONCLUSION: 1. Atherosclerotic changes without significant stenosis bilateral lower extrem ities. Chest X-Ray 08/15/17 0955 Signed Impressions: CONCLUSION: 1. No acute abnormality or significant interval change. Toe X-Ray 08/15/17 Signed Impressions: CONCLUSION: Questionable small erosion distal phalanx right second toe. This could be infec tious in nature if there is clinical evidence for soft tissue infection. Renal Ultrasound 08/15/17 Signed Impressions: CONCLUSION: 1. No hydronephrosis. 2. Increased echogenicity most characteristic of medical renal disease. Foot MRI 08/15/17 Signed Impressions: CONCLUSION: 1. No evidence for osteomyelitis. Soft tissue swelling at the second toe. Physical Exam GENERAL: WDWN male patient, INAD. Asleep but easily awakens to voice. Appears comfortable. SKIN: No rashes or lesions. Cool and dry. HEAD: Atraumatic. Normocephalic. EYES: Pupils equal round and reactive. Extraocular motions intact. No scleral icterus. No injection or drainage. ENT: Nose without bleeding or purulent drainage. Airway patent. MMM. NECK: Trachea midline. Supple, nontender, no meningeal signs. CARDIOVASCULAR: HS audible. ICD, has mild pink color on his L chest, not indurated, seems swollen, not tender, has well healed incision RESPIRATORY: Nonlabored. Clear to auscultation. Breath sounds equal bilaterally. No wheezes, rales, or rhonchi. GASTROINTESTINAL: Abdomen soft, non-tender, nondistended. MUSCULOSKELETAL: Has wet gangrene Right 2nd toe with erythema on dorsum of his foot. NEUROLOGICAL: Grossly non-focal. Psych calm and cooperative IV line sites with no e.o infection. (Damaris Drummond) Assessment & Plan Remarks High grade MSSA Sepsis (leucocytosis, tachycardia, lactic acidemia) - source ?2nd toe, concern with ICD Right 2nd toe wet gangrene, osteomyelitis. On Heparin gtt -CTA runoff with atherosclerotic changes no sig stenosis BLE -scheduled for sx today at 1700 Diabetes Hepatitis C antibody positive AICD CAD with severe ischemic cardiomyopathy. ?CHF exacerbation, BNP 1210, dropped to 847 Thrombocytopenia likely due to severe infection HIT neg -platelets low but appear stable -Hematology consult placed Recs Continue IV Ancef Continue Genta IV for synergy pending BCX turning negative and source control. for surgical intervention today Concern for AICD infection due to persistent bacteremia. Repeat BC to document clearing after surgery Echo negative. If persistent bacteremia after the surgery will need CARA to look for valve and AICD lead infection. Follow C/S Monitor progress Plan for at least 6weeks IV abx management irrespective of bone path results (Damaris Drummond) Remarks The exam, history, and the medical decision-making described in the above note were completed with the assistance of the mid-level provider. I reviewed and agree with the findings presented. I attest that I had a [id number] encounter with the patient on the same day, and personally performed and documented my assessment and findings in the medical record. Delayed entry Persistent bacteremia Toe with gangrene and erythema surrounding. Repeat blood cultures Continue Ancef IV Continue Genta IV Monitor UO and Cr Follow repeat blood cultures once sterilized x 72 hrs will consider stopping genta. (Michelle Galan MD) Damaris Drummond August 20, 2017 08:03 Michelle Galan MD August 20, 2017 18:03
[2017-08-20] MEDS: SACUBITRIL/VALSARTAN 49 MG-51 MG TAB PO SCH ×2 (09:17→19:55)
[2017-08-20] MEDS: ASPIRIN 81 MG CHEW TAB CHEW SCH (09:17)
[2017-08-20] MEDS: CARVEDILOL 6.25 MG TAB PO SCH ×2 (09:17→19:55)
[2017-08-20] MEDS: INSULIN ASPART SUPPLEMENTAL SCALE SQ SCH ×4 (09:17→20:09)
[2017-08-20] MEDS: PRAVASTATIN SOD 40 MG TAB PO SCH (09:18)
--- NOTE | 2017-08-20 11:16 | HHI.PR ---
Subjective Remarks Patient is scheduled to have right second toe amputated due to gangrene and osteomyelitis today Has some hypotension we will give some fluids since patient is n.p.o. Discussed with patient and ETHAN Vallejo labs Objective Vitals Vital Signs Date Time Temp Pulse Resp B/P (MAP) Pulse Ox O2 Delivery O2 Flow Rate FiO2 08/20/17 11:10 102/64 (77) 08/20/17 11:00 98.2 77 16 82/56 (65) 08/20/17 07:00 98.3 69 16 113/75 (88) 97 08/20/17 07:00 70 08/20/17 06:00 82 08/20/17 05:00 80 08/20/17 04:00 68 08/20/17 03:29 98.1 68 20 124/82 (96) 95 08/20/17 03:00 75 08/20/17 02:00 72 08/20/17 01:00 76 08/20/17 00:00 76 08/19/17 23:10 98.8 72 18 118/67 (84) 97 08/19/17 23:00 75 08/19/17 22:00 84 08/19/17 21:00 74 08/19/17 20:34 98.8 73 19 123/77 (92) 98 08/19/17 20:00 80 08/19/17 19:00 74 08/19/17 18:00 78 08/19/17 17:24 16 08/19/17 17:00 82 08/19/17 16:00 98.2 81 16 132/78 (96) 96 08/19/17 16:00 83 08/19/17 15:00 84 08/19/17 13:00 76 08/19/17 12:00 83 08/19/17 12:00 98.4 82 16 119/72 (88) 100 I/O 08/19/17 08/19/17 08/19/17 08/20/17 08/20/17 08/20/17 07:00 15:00 23:00 07:00 15:00 23:00 Intake Total 240 ml 1140 ml 902 ml Output Total 500 ml 950 ml 1100 ml Balance -260 ml 190 ml -198 ml Intake Oral 240 ml 620 ml 500 ml IV Total 520 ml 402 ml Output Urine Total 500 ml 950 ml 1100 ml # Bowel Movements 1 Result Diagram: 08/20/17 0323 08/20/17 0323 Other Results Laboratory Tests Test 08/17/17 15:47 08/17/17 22:09 08/18/17 05:10 08/18/17 10:54 Activated Partial Thromboplast Time 36.6 SEC 39.4 SEC White Blood Count 11.0 TH/MM3 Red Blood Count 5.00 MIL/MM3 Hemoglobin 13.6 GM/DL Hematocrit 40.3 % Mean Corpuscular Volume 80.5 FL Mean Corpuscular Hemoglobin 27.2 PG Mean Corpuscular Hemoglobin Concent 33.7 % Red Cell Distribution Width 17.4 % Platelet Count 64 TH/MM3 Mean Platelet Volume 10.7 FL Blood Urea Nitrogen 32 MG/DL Creatinine 0.82 MG/DL Random Glucose 180 MG/DL Calcium Level 8.2 MG/DL Magnesium Level 2.7 MG/DL Sodium Level 137 MEQ/L Potassium Level 3.9 MEQ/L Chloride Level 103 MEQ/L Carbon Dioxide Level 25.5 MEQ/L Anion Gap 9 MEQ/L Estimat Glomerular Filtration Rate 96 ML/MIN Hemoglobin A1c 9.6 % B-Type Natriuretic Peptide 1210 PG/ML Heparin-Induced Platelet Ab (Lina) NEGATIVE HIPA Patient Optical Density 0.041 O.D. Fibrinogen 392 mg/dL D-Dimer Quantitative (PE/DVT) 1.19 MG/L FEU Test 08/19/17 04:05 08/19/17 14:25 08/19/17 18:47 08/20/17 03:23 White Blood Count 12.4 TH/MM3 12.1 TH/MM3 11.3 TH/MM3 Red Blood Count 5.20 MIL/MM3 5.36 MIL/MM3 4.95 MIL/MM3 Hemoglobin 14.2 GM/DL 14.6 GM/DL 13.4 GM/DL Hematocrit 42.0 % 43.6 % 39.5 % Mean Corpuscular Volume 80.7 FL 81.3 FL 79.8 FL Mean Corpuscular Hemoglobin 27.3 PG 27.3 PG 27.1 PG Mean Corpuscular Hemoglobin Concent 33.8 % 33.6 % 34.0 % Red Cell Distribution Width 17.0 % 17.5 % 17.1 % Platelet Count 80 TH/MM3 102 TH/MM3 98 TH/MM3 Mean Platelet Volume 10.2 FL 10.1 FL 9.4 FL Blood Urea Nitrogen 28 MG/DL Creatinine 0.77 MG/DL 0.73 MG/DL Random Glucose 232 MG/DL Calcium Level 8.9 MG/DL Sodium Level 138 MEQ/L Potassium Level 4.1 MEQ/L Chloride Level 103 MEQ/L Carbon Dioxide Level 26.8 MEQ/L Anion Gap 8 MEQ/L Estimat Glomerular Filtration Rate 103 ML/MIN 110 ML/MIN B-Type Natriuretic Peptide 847 PG/ML Prothrombin Time 11.4 SEC Prothromb Time International Ratio 1.1 RATIO Activated Partial Thromboplast Time 24.1 SEC 32.2 SEC 37.3 SEC Neutrophils (%) (Auto) 64.6 % Lymphocytes (%) (Auto) 19.1 % Monocytes (%) (Auto) 13.3 % Eosinophils (%) (Auto) 1.7 % Basophils (%) (Auto) 1.3 % Neutrophils # (Auto) 7.3 TH/MM3 Lymphocytes # (Auto) 2.2 TH/MM3 Monocytes # (Auto) 1.5 TH/MM3 Eosinophils # (Auto) 0.2 TH/MM3 Basophils # (Auto) 0.2 TH/MM3 CBC Comment DIFF FINAL Differential Comment Test 08/20/17 10:15 Activated Partial Thromboplast Time 42.0 SEC Imaging Last Impressions Aorta w/Runoff CTA 08/19/17 Signed Impressions: CONCLUSION: 1. Atherosclerotic changes without significant stenosis bilateral lower extrem ities. Chest X-Ray 08/15/17 0955 Signed Impressions: CONCLUSION: 1. No acute abnormality or significant interval change. Toe X-Ray 08/15/17 Signed Impressions: CONCLUSION: Questionable small erosion distal phalanx right second toe. This could be infec tious in nature if there is clinical evidence for soft tissue infection. Renal Ultrasound 08/15/17 Signed Impressions: CONCLUSION: 1. No hydronephrosis. 2. Increased echogenicity most characteristic of medical renal disease. Foot MRI 08/15/17 Signed Impressions: CONCLUSION: 1. No evidence for osteomyelitis. Soft tissue swelling at the second toe. Objective Remarks GENERAL: Awake alert and oriented 3 talkative and cooperative SKIN: Warm and dry. Right second toe is gangrenous and black HEAD: Atraumatic. Normocephalic. EYES: Pupils equal and round. No scleral icterus. No injection or drainage. extraocular muscles intact ENT: No nasal bleeding or discharge. Mucous membranes pink and moist. Tongue is midline NECK: Trachea midline. No JVD. Supple CARDIOVASCULAR: Regular rate and rhythm. S1-S2 no S3 or S4 RESPIRATORY: No accessory muscle use. Clear to auscultation. Breath sounds equal bilaterally. GASTROINTESTINAL: Abdomen soft, non-tender, nondistended. Hepatic and splenic margins not palpable. MUSCULOSKELETAL: Extremities without clubbing, cyanosis, or edema. No obvious deformities. Right second toe is black and gangrenous NEUROLOGICAL: Awake and alert. No obvious cranial nerve deficits. Motor grossly within normal limits. Five out of 5 muscle strength in the arms and legs. Normal speech. PSYCHIATRIC: Appropriate mood and affect; insight and judgment normal. Medications and IVs Current Medications Sodium Chloride (NS Flush) 2 ml UNSCH PRN IVF FLUSH AFTER USING IV ACCESS Last administered on 08/19/17at 08:31; Start 08/15/17 at 10:00 Piperacillin Sod/ Tazobactam Sod 50 ml @ 100 mls/hr ONCE ONCE IV Last administered on 08/15/17at 12:07; Start 08/15/17 at 11:30; Stop 08/15/17 at 11:59 ; Status DC Vancomycin HCl 1350 mg/Sodium Chloride 513.5 ml @ 250 mls/hr ONCE ONCE IV Last administered on 08/15/17at 13:27; Start 08/15/17 at 11:30; Stop 08/15/17 at 13:33; Status DC Aspirin (Aspirin Chew) 162 mg ONCE ONCE CHEW Last administered on 08/15/17at 12 :02; Start 08/15/17 at 11:30; Stop 08/15/17 at 11:31; Status DC Heparin Sodium (Porcine) (Heparin Inj) 4,000 units ONCE ONCE IV PUSH Last administered on 08/15/17at 12:03; Start 08/15/17 at 11:45; Stop 08/15/17 at 11:46 ; Status DC Heparin Sodium/ Dextrose 250 ml @ 10 mls/hr TITRATE PRN IV Coagulation Management Last administered on 08/16/17at 16:19; Start 08/15/17 at 11:45; Status Future Hold Dextrose (D50w (Vial) Inj) 50 ml UNSCH PRN IV PUSH HYPOGLYCEMIA-SEE COMMENTS; Start 08/15/17 at 13:30 Glucagon (Glucagon Inj) 1 mg UNSCH PRN OTHER HYPOGLYCEMIA-SEE COMMENTS; Start 08/15/17 at 13:30 Insulin Aspart (NovoLOG SUPPLEMENTAL SCALE) 1 ACHS SLIDING SCALE SQ Last administered on 08/20/17at 09:17; Start 08/15/17 at 17:00 Sodium Chloride 1,000 ml @ 60 mls/hr [id number] IV Last administered on at 18:23; Start 08/15/17 at 13:30; Stop 08/18/17 at 10:00; Status DC Piperacillin Sod/ Tazobactam Sod 50 ml @ 100 mls/hr Q6H IV Last administered on 08/17/17at 17:02; Start 08/15/17 at 18:00; Stop 08/18/17 at 09:02; Status DC Pharmacy Profile Note 0 ml @ 0 mls/hr UNSCH OTHER ; Start 08/15/17 at 13:30; Stop 08/17/17 at 11:26; Status DC Aspirin (Ecotrin Ec) 162 mg DAILY PO Last administered on 08/17/17at 09:05; Start 08/16/17 at 09:00; Stop 08/19/17 at 12:04; Status DC Famotidine (Pepcid) 20 mg BID PO Last administered on 08/18/17at 08:52; Start at 21:00; Stop 08/18/17 at 10:16; Status DC Pravastatin Sodium (Pravachol) 40 mg DAILY PO Last administered on 08/20/17at 09 :18; Start 08/16/17 at 09:00 Albuterol/ Ipratropium (Duoneb Neb) 1 ampule Q4HR NEB PRN NEB SHORTNESS OF BREATH Last administered on 08/15/17at 15:38; Start 08/15/17 at 13:45 Vancomycin HCl 1500 mg/Sodium Chloride 515 ml @ 250 mls/hr Q24H IV Last administered on 08/16/17at 14:18; Start 08/16/17 at 14:00; Stop 08/16/17 at 16:40 ; Status DC Acetaminophen (Tylenol) 650 mg Q4H PRN PO FEVER/PAIN 1-5 Last administered on at 11:45; Start 08/15/17 at 14:30 Acetaminophen/ Hydrocodone Bitart (Trezevant 5-325 Mg) 1 tab Q4H PRN PO PAIN 6-10 Last administered on 08/19/17at 16:28; Start 08/15/17 at 14:30 Gadobenate Dimeglumine (Multihance Pf Inj) 18 ml STK-MED ONCE IV Last administered on 08/15/17at 17:21; Start 08/15/17 at 17:21; Stop 08/15/17 at 17:22 ; Status DC Metoclopramide HCl (Reglan Inj) 10 mg ONCE ONCE IV PUSH Last administered on at 02:05; Start 08/16/17 at 02:15; Stop 08/16/17 at 02:16; Status DC Metoclopramide HCl (Reglan Inj) 5 mg Q6H PRN IV PUSH NAUSEA OR VOMITING Last administered on 08/16/17at 20:10; Start 08/16/17 at 02:30 Ondansetron HCl (Zofran Odt) 4 mg Q6H PRN PO NAUSEA OR VOMITING Last administered on 08/19/17at 11:50; Start 08/16/17 at 02:30 Metoprolol Tartrate (Lopressor Inj) 5 mg ONCE ONCE IV PUSH Last administered on 08/16/17at 02:39; Start 08/16/17 at 02:45; Stop 08/16/17 at 02:46; Status DC Metoprolol Tartrate (Lopressor Inj) 5 mg Q5M PRN IV PUSH ATRIAL FLUTTER Last administered on 08/16/17at 03:06; Start 08/16/17 at 02:45 Miscellaneous Information ([facility] Ordered Lab Info) SPECIFIC LAB TO BE SHERRON... ONCE ONCE .XX ; Start 08/18/17 at 12:45; Stop 08/18/17 at 12:46; Status Cancel Insulin Detemir (Levemir Inj) 10 units HS SQ Last administered on 08/19/17at 21: 00; Start 08/16/17 at 21:00 Vancomycin HCl 1000 mg/Sodium Chloride 250 ml @ 250 mls/hr Q12H IV Last administered on 08/17/17at 01:06; Start 08/17/17 at 02:00; Stop 08/17/17 at 11:26 ; Status DC Miscellaneous Information ([facility] Ordered Lab Info) SPECIFIC LAB TO BE SHERRON... ONCE ONCE .XX ; Start 08/18/17 at 13:45; Stop 08/18/17 at 13:46; Status DC Benzonatate (Tessalon) 100 mg TID PRN PO COUGH Last administered on 08/20/17at 02:00; Start 08/17/17 at 03:00 Guaifenesin/ Codeine Phosphate (Robitussin Ac 200-20 Mg/10 ml Liq) 10 ml Q6H PRN PO COUGH; Start 08/17/17 at 03:00 Magnesium Sulfate/ Dextrose 100 ml @ 100 mls/hr Q1H IV Last administered on at 09:45; Start 08/17/17 at 08:45; Stop 08/17/17 at 10:44; Status DC Cefazolin Sodium/ Dextrose 50 ml @ 100 mls/hr Q8H IV Last administered on 08/17at 21:32; Start 08/17/17 at 13:00; Stop 08/17/17 at 23:30; Status DC Carvedilol (Coreg) 6.25 mg Q12HR PO Last administered on 08/20/17at 09:17; Start 08/17/17 at 11:30 Sacubitril/ Valsartan (Entresto 49-51 Mg) 1 tab BID PO Last administered on at 09:17; Start 08/17/17 at 21:00 Cefepime HCl 1000 mg/Sodium Chloride 100 ml @ 200 mls/hr Q8H IV Last administered on 08/18/17at 08:49; Start 08/18/17 at 00:00; Stop 08/18/17 at 09:01 ; Status DC Piperacillin Sod/ Tazobactam Sod 50 ml @ 100 mls/hr Q6H IV Last administered on 08/19/17at 10:00; Start 08/18/17 at 10:00; Stop 08/19/17 at 11:16; Status DC Cefazolin Sodium/ Dextrose 50 ml @ 100 mls/hr Q8H IV Last administered on 08/20at 09:18; Start 08/18/17 at 09:00 Aspirin (Aspirin Chew) 81 mg DAILY CHEW Last administered on 08/20/17at 09:17; Start 08/19/17 at 12:10 Pharmacy Profile Note 0 ml @ 0 mls/hr UNSCH OTHER ; Start 08/19/17 at 11:15 Heparin Sodium/ Dextrose 250 ml @ 16.128 mls/ hr TITRATE PRN IV Coagulation Management Last administered on 08/20/17at 03:26; Start 08/19/17 at 12:30 Gentamicin Sulfate 90 mg/ Sodium Chloride 102.25 ml @ 200 mls/ hr Q8H IV Last administered on 08/20/17at 05:26; Start 08/19/17 at 14:00 Miscellaneous Information ([facility] Ordered Lab Info) SPECIFIC LAB TO BE SHERRON... ONCE ONCE .XX ; Start 08/20/17 at 13:45; Stop 08/20/17 at 13:46 Miscellaneous Information ([facility] Ordered Lab Info) SPECIFIC LAB TO BE SHERRON... ONCE ONCE .XX ; Start 08/20/17 at 15:00; Stop 08/20/17 at 15:01 Iohexol (Omnipaque 350 Inj) 100 ml STK-MED ONCE IVCONTRAST Last administered on 08/19/17at 13:57; Start 08/19/17 at 13:57; Stop 08/19/17 at 13:58; Status DC A/P Problem List: (1) Severe sepsis ICD Code: A41.9 - Sepsis, unspecified organism; R65.20 - Severe sepsis without septic shock (2) Elevated troponin ICD Code: R74.8 - Abnormal levels of other serum enzymes (3) gangrene of the right second toe Assessment and Plan Severe sepsis due to gangrene/ infection of the right second toe Staph aureus bacteremia-- persistent bacteremia- check echo- may need CARA ID [id number] - on zosyn and Ancef Repeat BC to document clearing in next few days May need CARA Podiatry following Vascular surgery ff- requested for CTA runoff- DONE FOR SURGERY ON RIGHT 2ND TOE 08-20 WITH PODIATRY Ischemic cardiomyopathy EF 25% - nstemi, Debrillator fired evening . NSTEMI with history of CAD- had cardiac cath two months ago with severe three vessel disease- was evaluated by CT surgery at the time with poor targets for redo sternotomy high metabolic demand from sepsis - clinically feeling better - continue electrolyte monitoring - ASA, Heparin drip- DC due to thrombocytopenia- Hematology consutled for recommendation - continue Entresto, Coreg - will start ASA Acute kidney injury; improved- started on gentle IV hydration in light of cardiomyopathy- monitor renal function -thrombocytopenia- likely due to sepsis - continue ASA - FF CBC -seen by Dr. Jones. HIT ab negative- restart heparin drip- will d/w Dr. Jones - will also DC Pepcid- due to thrombocytopenia Diabetes mellitus- sliding scale -COPD with no exacerbation; neb treatment as needed. -diabetes mellitus; uncontrolled- hold oral hypoglycemics- start on accu-check with SSI. continue Levemir and adjust -DVT prophylaxis;encoruage increase activity palliative care ff CM ff - assisting with transfer to a tertiary center for transplant-- no insurance, assisting us with Medicaid application Lavelle Patricia DO August 20, 2017 11:16
[2017-08-20] MEDS ORDERED: PROPOFOL 200 MG/20 ML AMP IV ONE (12:00)
[2017-08-20] MEDS ORDERED: PANTOPRAZOLE SODIUM 40 MG VIAL IV PUSH ONE (12:45)
[2017-08-20] MEDS: SODIUM CHLOR 0.9% 1000 ML INJ 1,000 ML IV SCH ×2 (12:51→20:09)
[2017-08-20] MEDS ORDERED: PHARMACY ORDERED LAB ONE ×2 (13:45→15:00)
--- NOTE | 2017-08-20 14:07 | PD.CAR.PN ---
CVT Progress Note Subjective/Hospital Course: Patient seen full consult dictated Thanks Sydni 08/19/2017 This patient clearly has systemic vascular changes consistent with diabetes with decreased pulses in both legs below the level of the knee and consistent with a small vessel disease below the level of the ankles. The gangrene of the first 2 toes was probably due to trauma and swelling that patient did not even notice and then superimposed occlusion of the small vessels. In a few patients, this will occur also from distal embolization, but that is unlikely because the patient is on anticoagulants. I do not believe that his proximal inflow is compromised, but I do believe he probably has significant disease below the level of the knee, especially close to the ankles. At this point, it is a valid point to do a CT angiogram with runoff and see what this looks like. It should be noted that a patient with this degree of ejection fraction and coronary impairment is not a candidate for any major surgery more than absolutely necessary, but he may be okay for some balloon angioplasty distally. At this point, we will do CTA with runoff and see which way it goes. 08/20/2017 I reviewed the CTA with a runoff and this confirms the clinical impression above Patient does not have any vascular flow limiting occlusive inflow disease but indeed diffusely calcified vessels This continues through the SFA and into the trifurcation below the level of the knee Vessels are heavily calcified but no flow-limiting lesions are noted except diffuse disease Clearly small vessel disease in the feet is severe and hence the gangrene of the toes At this point there is no vascular or endovascular wrist construction to be done and there are no lesions that need any work Would go ahead with toe amputations and in all likelihood this is going to heal This is probably most likely in the best case scenario. He would be unlikely but certainly possible that patient will need in the future higher level amputation even to the level of BKA but this would be unusual Objective: Vital Signs Date Time Temp Pulse Resp B/P (MAP) Pulse Ox O2 Delivery O2 Flow Rate FiO2 08/20/17 11:10 102/64 (77) 08/20/17 11:00 98.2 77 16 82/56 (65) 08/20/17 10:40 92 21 08/20/17 07:00 98.3 69 16 113/75 (88) 97 08/20/17 07:00 70 08/20/17 06:00 82 08/20/17 05:00 80 08/20/17 04:00 68 08/20/17 03:29 98.1 68 20 124/82 (96) 95 08/20/17 03:00 75 08/20/17 02:00 72 08/20/17 01:00 76 08/20/17 00:00 76 08/19/17 23:10 98.8 72 18 118/67 (84) 97 08/19/17 23:00 75 08/19/17 22:00 84 08/19/17 21:00 74 08/19/17 20:34 98.8 73 19 123/77 (92) 98 08/19/17 20:00 80 08/19/17 19:00 74 08/19/17 18:00 78 08/19/17 17:24 16 08/19/17 17:00 82 08/19/17 16:00 98.2 81 16 132/78 (96) 96 08/19/17 16:00 83 08/19/17 15:00 84 Labs: Laboratory Tests Test 08/20/17 03:23 08/20/17 10:15 White Blood Count 11.3 TH/MM3 (4.0-11.0) Red Blood Count 4.95 MIL/MM3 (4.50-5.90) Hemoglobin 13.4 GM/DL (13.0-17.0) Hematocrit 39.5 % (39.0-51.0) Mean Corpuscular Volume 79.8 FL (80.0-100.0) Mean Corpuscular Hemoglobin 27.1 PG (27.0-34.0) Mean Corpuscular Hemoglobin Concent 34.0 % (32.0-36.0) Red Cell Distribution Width 17.1 % (11.6-17.2) Platelet Count 98 TH/MM3 (150-450) Mean Platelet Volume 9.4 FL (7.0-11.0) Neutrophils (%) (Auto) 64.6 % (16.0-70.0) Lymphocytes (%) (Auto) 19.1 % (9.0-44.0) Monocytes (%) (Auto) 13.3 % (0.0-8.0) Eosinophils (%) (Auto) 1.7 % (0.0-4.0) Basophils (%) (Auto) 1.3 % (0.0-2.0) Neutrophils # (Auto) 7.3 TH/MM3 (1.8-7.7) Lymphocytes # (Auto) 2.2 TH/MM3 (1.0-4.8) Monocytes # (Auto) 1.5 TH/MM3 (0-0.9) Eosinophils # (Auto) 0.2 TH/MM3 (0-0.4) Basophils # (Auto) 0.2 TH/MM3 (0-0.2) CBC Comment DIFF FINAL Differential Comment Activated Partial Thromboplast Time 37.3 SEC (24.3-30.1) 42.0 SEC (24.3-30.1) Creatinine 0.73 MG/DL (0.60-1.30) Estimat Glomerular Filtration Rate 110 ML/MIN (>89) Result Diagram: 08/20/1732208/20/17322 (1) ARF (acute renal failure) (2) NSTEMI (non-ST elevated myocardial infarction) (3) CAD (coronary artery disease) (4) Decreased cardiac ejection fraction (5) Elevated troponin (6) Severe sepsis (7) Diabetes mellitus (8) Acute renal failure (9) Cardiomyopathy (10) gangrene of the right second toe (11) Dyspnea and respiratory abnormalities (12) Multi-vessel coronary artery stenosis (13) Hx of CABG (14) Thrombocytopenia Ivan Solomon MD August 20, 2017 14:07
--- NOTE | 2017-08-20 14:08 | PD.CARD.PN ---
Subjective Subjective Remarks appears comfortable in nad Objective Medications Current Medications Medications (Trade) Dose Ordered Sig/Erika Route Start Time Stop Time Status Last Admin (NS Flush) 2 ml UNSCH PRN IVF 08/15/17 10:00 08/19/17 08:31 Heparin Sodium/ Dextrose 250 ml @ 10 mls/hr TITRATE PRN IV 08/15/17 11:45 Future Hold 08/16/17 16:19 (D50w (Vial) Inj) 50 ml UNSCH PRN IV PUSH 08/15/17 13:30 (Glucagon Inj) 1 mg UNSCH PRN OTHER 08/15/17 13:30 (NovoLOG SUPPLEMENTAL SCALE) 1 ACHS SLIDING SCALE SQ 08/15/17 17:00 08/20/17 09:17 (Pravachol) 40 mg DAILY PO 08/16/17 09:00 08/20/17 09:18 (Duoneb Neb) 1 ampule Q4HR NEB PRN NEB 08/15/17 13:45 08/15/17 15:38 (Tylenol) 650 mg Q4H PRN PO 08/15/17 14:30 08/18/17 11:45 ([place] 5-325 Mg) 1 tab Q4H PRN PO 08/15/17 14:30 08/19/17 16:28 (Reglan Inj) 5 mg Q6H PRN IV PUSH 08/16/17 02:30 08/16/17 20:10 (Zofran Odt) 4 mg Q6H PRN PO 08/16/17 02:30 08/19/17 11:50 (Lopressor Inj) 5 mg Q5M PRN IV PUSH 08/16/17 02:45 08/16/17 03:06 (Levemir Inj) 10 units HS SQ 08/16/17 21:00 08/19/17 21:00 (Tessalon) 100 mg TID PRN PO 08/17/17 03:00 08/20/17 02:00 (Robitussin Ac 200-20 Mg/10 ml Liq) 10 ml Q6H PRN PO 08/17/17 03:00 (Coreg) 6.25 mg Q12HR PO 08/17/17 11:30 08/20/17 09:17 (Entresto 49-51 Mg) 1 tab BID PO 08/17/17 21:00 08/20/17 09:17 Cefazolin Sodium/ Dextrose 50 ml @ 100 mls/hr Q8H IV 08/18/17 09:00 08/20/17 09:18 (Aspirin Chew) 81 mg DAILY CHEW 08/19/17 12:10 08/20/17 09:17 Pharmacy Profile Note 0 ml @ 0 mls/hr UNSCH OTHER 08/19/17 11:15 Heparin Sodium/ Dextrose 250 ml @ 16.128 mls/ hr TITRATE PRN IV 08/19/17 12:30 08/20/17 03:26 Gentamicin Sulfate 90 mg/ Sodium Chloride 102.25 ml @ 200 mls/ hr Q8H IV 08/19/17 14:00 08/20/17 05:26 ([facility] Ordered Lab Info) SPECIFIC LAB TO BE ... ONCE ONCE .XX 08/20/17 15:00 08/20/17 15:01 Sodium Chloride 1,000 ml @ 100 mls/hr Q10H IV 08/20/17 11:15 08/20/17 12:51 (Protonix) 40 mg DAILY PO 08/21/17 09:00 Vital Signs / I&O Vital Signs Date Time Temp Pulse Resp B/P (MAP) Pulse Ox O2 Delivery O2 Flow Rate FiO2 08/20/17 11:10 102/64 (77) 08/20/17 11:00 98.2 77 16 82/56 (65) 08/20/17 10:40 92 21 08/20/17 07:00 98.3 69 16 113/75 (88) 97 08/20/17 07:00 70 08/20/17 06:00 82 08/20/17 05:00 80 08/20/17 04:00 68 08/20/17 03:29 98.1 68 20 124/82 (96) 95 08/20/17 03:00 75 08/20/17 02:00 72 08/20/17 01:00 76 08/20/17 00:00 76 08/19/17 23:10 98.8 72 18 118/67 (84) 97 08/19/17 23:00 75 08/19/17 22:00 84 08/19/17 21:00 74 08/19/17 20:34 98.8 73 19 123/77 (92) 98 08/19/17 20:00 80 08/19/17 19:00 74 08/19/17 18:00 78 08/19/17 17:24 16 08/19/17 17:00 82 08/19/17 16:00 98.2 81 16 132/78 (96) 96 08/19/17 16:00 83 08/19/17 15:00 84 I/O 08/19/17 08/19/17 08/19/17 08/20/17 08/20/17 08/20/17 07:00 15:00 23:00 07:00 15:00 23:00 Intake Total 240 ml 1140 ml 902 ml Output Total 500 ml 950 ml 1100 ml Balance -260 ml 190 ml -198 ml Intake Oral 240 ml 620 ml 500 ml IV Total 520 ml 402 ml Output Urine Total 500 ml 950 ml 1100 ml # Bowel Movements 1 Physical Exam GENERAL: SKIN: Warm and dry. HEAD: Normocephalic. EYES: No scleral icterus. No injection or drainage. NECK: Supple, trachea midline. No JVD or lymphadenopathy. CARDIOVASCULAR: Regular rate and rhythm without murmurs, gallops, or rubs. RESPIRATORY: Breath sounds equal bilaterally. No accessory muscle use. GASTROINTESTINAL: Abdomen soft, non-tender, nondistended. MUSCULOSKELETAL: No cyanosis, or edema. BACK: Nontender without obvious deformity. No CVA tenderness. Laboratory Laboratory Tests Test 08/19/17 14:25 08/19/17 18:47 08/20/17 03:23 08/20/17 10:15 White Blood Count 12.1 TH/MM3 11.3 TH/MM3 Red Blood Count 5.36 MIL/MM3 4.95 MIL/MM3 Hemoglobin 14.6 GM/DL 13.4 GM/DL Hematocrit 43.6 % 39.5 % Mean Corpuscular Volume 81.3 FL 79.8 FL Mean Corpuscular Hemoglobin 27.3 PG 27.1 PG Mean Corpuscular Hemoglobin Concent 33.6 % 34.0 % Red Cell Distribution Width 17.5 % 17.1 % Platelet Count 102 TH/MM3 98 TH/MM3 Mean Platelet Volume 10.1 FL 9.4 FL Prothrombin Time 11.4 SEC Prothromb Time International Ratio 1.1 RATIO Activated Partial Thromboplast Time 24.1 SEC 32.2 SEC 37.3 SEC 42.0 SEC Neutrophils (%) (Auto) 64.6 % Lymphocytes (%) (Auto) 19.1 % Monocytes (%) (Auto) 13.3 % Eosinophils (%) (Auto) 1.7 % Basophils (%) (Auto) 1.3 % Neutrophils # (Auto) 7.3 TH/MM3 Lymphocytes # (Auto) 2.2 TH/MM3 Monocytes # (Auto) 1.5 TH/MM3 Eosinophils # (Auto) 0.2 TH/MM3 Basophils # (Auto) 0.2 TH/MM3 CBC Comment DIFF FINAL Differential Comment Creatinine 0.73 MG/DL Estimat Glomerular Filtration Rate 110 ML/MIN Assessment and Plan Problem List: (1) ARF (acute renal failure) ICD Codes: N17.9 - Acute kidney failure, unspecified (2) NSTEMI (non-ST elevated myocardial infarction) ICD Codes: I21.4 - Non-ST elevation (NSTEMI) myocardial infarction (3) CAD (coronary artery disease) ICD Codes: I25.10 - Atherosclerotic heart disease of [place] coronary artery without angina pectoris (4) Decreased cardiac ejection fraction ICD Codes: R93.1 - Abnormal findings on diagnostic imaging of heart and coronary circulation (5) Elevated troponin ICD Codes: R74.8 - Abnormal levels of other serum enzymes (6) Severe sepsis ICD Codes: A41.9 - Sepsis, unspecified organism; R65.20 - Severe sepsis without septic shock (7) Diabetes mellitus ICD Codes: E11.9 - Type 2 diabetes mellitus without complications (8) Acute renal failure ICD Codes: N17.9 - Acute kidney failure, unspecified (9) Cardiomyopathy ICD Codes: I42.9 - Cardiomyopathy, unspecified (10) gangrene of the right second toe (11) Dyspnea and respiratory abnormalities ICD Codes: R06.00 - Dyspnea, unspecified; R06.89 - Other abnormalities of breathing (12) Multi-vessel coronary artery stenosis ICD Codes: I25.10 - Atherosclerotic heart disease of [place] coronary artery without angina pectoris (13) Hx of CABG ICD Codes: Z95.1 - Presence of aortocoronary bypass graft (14) Thrombocytopenia ICD Codes: D69.6 - Thrombocytopenia, unspecified Assessment and Plan 1.) Ischemic cardiomyopathy - nstemi, chf excacerbation and arf due to severe unrevascularizable cad, cardiomyopathy and high metabolic demand from sepsis, off iv heparin and aspirin due to thrombocytopenia, hematology consult placed, on antibiotics, noncardiac procedure is high risk due to multiple unstable comorbidities and nstemi 2.) VT - replete electrolytes, on coreg; d/w case management further attempts to insure and obtain eligibility for referral to heart transplant center Garrett Henao MD August 20, 2017 14:08
[2017-08-20] MEDS ORDERED: KETAMINE HCL 50 MG/5 ML SYRINGE ONE (15:41)
[2017-08-20] MEDS ORDERED: LIDOCAINE HCL 2% PF 10 ML VIAL ONE (16:24)
[2017-08-20] MEDS ORDERED: DO NOT ADM ANY ANTICOAGULANT DRUGS PRN (17:07)
[2017-08-20] MEDS ORDERED: MIDAZOLAM HCL 2 MG/2 ML VIAL ONE (17:16)
--- NOTE | 2017-08-20 17:27 | HHI.PR ---
Immediate Post Op Note Procedure Date: August 20, 2017 Pre Op Diagnosis: gangrene with osteomyelitis right 2nd toe Post Op Diagnosis: same Surgeon: Ron Goldman DPM Senior Environmental Technician(s): Staff Procedure: amputation right 2nd toe Findings: Consistent with diagnosis. Right 2nd toe with necrotic tissue to entire digit. Foul odor slightly present. Margins clean without purulence. Two semi-elliptical incisions made to disarticulate digit in its entirety at metatarsophalangeal joint level. 2nd metatarsal head with white healthy cartilage cap. No purulence noted. Culture taken prior to irrigation and primary closure with 2-0 nylon suture. Dressing with xeroform, 4x4, cast padding, livia. Weightbearing as tolerated to heel in surgical shoe for transfers only. Additional Information: see findings Complications: none Specimen(s) removed: 1. toe right 2nd 2. culture right foot Estimated blood loss: minimal Anesthesia: MAC, Local (10mL 2% lidocaine plain) Drains: None Tourniquet time (min at mmHg) n/a Patient to: PACU Patient Condition: Good Date/Time of Procedure: SEE SURGICAL CARE RECORD Ron Goldman DPM August 20, 2017 17:27
[2017-08-20] MEDS: INSULIN DETEMIR 100 UNITS/ML VIAL SQ SCH (20:00)
[2017-08-21] VITALS (31 sets, daily range): BP systolic 102–151; BP diastolic 63–73; PULSE 64–78; RESP 14–20; TEMP 97.7–98.9; O2SAT 94–98
[2017-08-21] MEDS: ceFAZolin 2 GM PREMIX 50 ML IV SCH ×3 (00:13→17:39)
[2017-08-21 03:00] LABS: AUTOMATED NEUTROPHIL # 7.6 TH/MM3 (1.8-7.7); BASOPHIL # 0.1 TH/MM3 (0-0.2); BASOPHIL % 0.5 % (0.0-2.0); EOSINOPHIL # 0.2 TH/MM3 (0-0.4); EOSINOPHIL % 1.5 % (0.0-4.0); HEMATOCRIT 37.7 % (39.0-51.0); HEMOGLOBIN 12.7 GM/DL (13.0-17.0); LYMPH % 17.3 % (9.0-44.0); LYMPHOCYTE # 1.9 TH/MM3 (1.0-4.8); MEAN CELL VOLUME 81.1 FL (80.0-100.0); MEAN CORPUSCULAR HEMOGLOBIN 27.4 PG (27.0-34.0); MEAN CORPUSCULAR HGB CONC 33.8 % (32.0-36.0); MONO % 10.3 % (0.0-8.0); MONOCYTE # 1.1 TH/MM3 (0-0.9); NEUT % 70.4 % (16.0-70.0); PLATELET COUNT 172 TH/MM3 (150-450); RED BLOOD COUNT 4.64 MIL/MM3 (4.50-5.90); RED CELL DISTRIBUTION WIDTH 17.2 % (11.6-17.2); WHITE BLOOD COUNT 10.9 TH/MM3 (4.0-11.0)
[2017-08-21 04:09] LABS: ALBUMIN 2.2 GM/DL (3.4-5.0); ALKALINE PHOSPHATASE 85 U/L (45-117); ALT (GPT) 19 U/L (12-78); AST (GOT) 17 U/L (15-37); BICARBONATE 28.9 MEQ/L (21.0-32.0); BLOOD UREA NITROGEN 19 MG/DL (7-18); CALCIUM 8.4 MG/DL (8.5-10.1); CHLORIDE 101 MEQ/L (98-107); CREATININE 0.93 MG/DL (0.60-1.30); FREE T4 1.34 NG/DL (0.76-1.46); GLOMERULAR FILTRATION RATE 83 ML/MIN (>89); GLUCOSE,RANDOM 283 MG/DL (74-106); PHOSPHORUS 3.2 MG/DL (2.5-4.9); SODIUM (NA) 137 MEQ/L (136-145); TOTAL BILIRUBIN ADULT 0.3 MG/DL (0.2-1.0); TOTAL PROTEIN 6.4 GM/DL (6.4-8.2)
[2017-08-21 04:25] LABS: BANDS 3 % (0-6); LYMPHOCYTES 13 % (9-44); METAMYELOCYTES 2 % (0-1); MONOCYTES 9 % (0-8); NEUTROPHIL # MANUAL DIFF 8.3 TH/MM3 (1.8-7.7); POLYS (SEG NEUTROPHILS) 71 % (16-70)
[2017-08-21 04:27] LABS: OVALOCYTES 1+ (NORMAL); TOXIC GRANULATION 1+ (NORMAL)
[2017-08-21] MEDS: GENTAMICIN INJ 90 MG in SODIUM CHLORIDE 0.9% INJ 100 ML IV SCH ×3 (05:59→22:20)
[2017-08-21] MEDS: INSULIN ASPART SUPPLEMENTAL SCALE SQ SCH ×4 (08:00→22:18)
[2017-08-21] MEDS: CARVEDILOL 6.25 MG TAB PO SCH ×2 (08:09→22:19)
[2017-08-21] MEDS: SACUBITRIL/VALSARTAN 49 MG-51 MG TAB PO SCH ×2 (08:09→22:19)
[2017-08-21] MEDS: PRAVASTATIN SOD 40 MG TAB PO SCH (08:09)
[2017-08-21] MEDS: PANTOPRAZOLE SOD 40 MG DELAYED RELEASE TAB PO SCH (08:09)
[2017-08-21] MEDS: ASPIRIN 81 MG CHEW TAB CHEW SCH (08:09)
[2017-08-21] MEDS: SODIUM CHLOR 0.9% 1000 ML INJ 1,000 ML IV SCH (10:17)
[2017-08-21] MEDS: HEPARIN-D5W 25,000 U/250 ML 250 ML IV PRN ×2 (10:18→22:35)
--- NOTE | 2017-08-21 10:35 | PD.POD ---
Subjective Podiatric Problems Status Post right 2nd toe amp with on 08/20/17. He denies any pain/n /v/f/h/c/sob. Pain score: 0 Past Med/Surg/Social History Social History Smoking Status: Former Smoker Objective Vital Signs Vital Signs Date Time Temp Pulse Resp B/P (MAP) Pulse Ox O2 Delivery O2 Flow Rate FiO2 08/21/17 10:00 75 08/21/17 09:00 72 08/21/17 08:20 98.6 73 14 129/71 (90) 96 08/21/17 08:00 64 08/21/17 07:00 76 08/21/17 06:00 68 08/21/17 05:00 64 08/21/17 04:50 98.6 69 18 105/73 (84) 96 08/21/17 04:00 76 08/21/17 03:00 74 08/21/17 02:00 68 08/21/17 01:00 68 08/21/17 00:23 76 08/21/17 00:10 97.7 73 18 102/70 (81) 96 08/20/17 23:00 70 08/20/17 22:00 76 08/20/17 21:27 95 08/20/17 21:00 82 08/20/17 20:03 78 08/20/17 19:52 98.0 74 16 106/60 (75) 98 08/20/17 19:00 78 08/20/17 18:00 70 08/20/17 17:40 62 16 99 Nasal Cannula 2 08/20/17 17:30 97.8 60 16 112/63 (79) 98 Nasal Cannula 2 08/20/17 17:15 65 15 109/60 (76) 97 Nasal Cannula 2 08/20/17 17:10 97.6 67 15 113/66 (82) 99 Nasal Cannula 3 08/20/17 15:00 98.3 70 16 99/53 (68) 97 08/20/17 15:00 74 08/20/17 14:00 68 08/20/17 13:00 70 08/20/17 12:00 68 08/20/17 11:10 102/64 (77) 08/20/17 11:00 98.2 77 16 82/56 (65) 08/20/17 11:00 75 08/20/17 10:40 92 21 Coded Allergies: potassium iodide (Unverified Allergy, Severe, Swelling, 06/12/17) povidone-iodine (Unverified Allergy, Severe, Swelling, 06/12/17) shellfish derived (Unverified Allergy, Severe, 06/12/17) sodium iodide (Unverified Allergy, Severe, Swelling, 06/12/17) sodium iodide (Unverified Allergy, Severe, Swelling, 06/12/17) Physical Exam Remarks Limited exam due to bandaging. Bandages were clean and dry with dried bloody strikethrough. CFT < 3 secs to remaining digits. ROM WNL to remaining digits. Calf is supple and non tender to compression. Assessment & Plan A/P 1)Right 2nd toe amputation 08/20/17 -plan for bandage change tomorrow with -wear surgical shoe when WBing -cont iv abx Razia Conway DPM August 21, 2017 10:35
--- NOTE | 2017-08-21 12:27 | HHI.IDPN ---
Subjective Subjective Remarks is a 57 y/o CM with PMHx of CHF, Ischemic Cardiomyopathy with last reported EF 20-25%, he has prior h/o CABG x 3, defibrillator and pacemaker, DM, HTN and hyperlipidemia. CT surgery evaluated and found him not to be a revascularization candidate and recommended referral to a tertiary center for transplant consideration. As the patient has no insurance this option has not been found feasible. He underwent placement of a single-chamber [place] ICD in May 2017 for sudden cardiac prevention. With this background patient presents to the ED at [facility] with 4 day history of progressive dyspnea described as severe, worsening with exertion, and improved with rest. He has had associated symptoms of diaphoresis, nausea and vomiting over the weekend. He additionally has noted painful changes in his right second toe with color changes suspicious for infection. In ED patient was noted to have WBC 9.6, hemoglobin 15.0, hematocrit 43.9, platelets 133, sodium 130, potassium 4.4, BUN 36, creatinine 1.84, random glucose 407 alkaline phosphatase 114, AST 37, ALT 25, total bilirubin 0.9, troponin 3.04, C-reactive protein 26.8, B natruretic peptide 3148, lactic acid 5.5. Ax Xray of Rt toe showed erosion. MRI with no osteomyelitis. Chest x-ray showed no acute abnormality or significant interval change. 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 He states that he is only able to be active for 5-10 minutes before becoming very dyspneic and exhausted. 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 He is now attempting to get disability as he has a nearly homebound existence and requires assistance to get out to doctor's appointments. Sepsis workup on admission positive for Staph bacteremia and ID consulted for evaluation and Mment of the same. Notes reviewed dw RN no fever no rash No diarrhea Feels better slightly but still achy RN reports 800 cc of urine. S/P ICD placement May 2017 Antibiotics IV Gent IV Ancef Teflaro IV Lines PIV no evidence of infection Past Medical History Severe ischemic cardiomyopathy EF 20-25% Hyperlipidemia Diabetes Coronary artery disease status post [place] 06/04 COPD Past Surgical History CABG 10 years ago Pacemaker/Defibrillator insertion Appendectomy Skin graft to right foot as a child Back surgeries 3 has hardware in back per report. Allergies: Coded Allergies: potassium iodide (Unverified Allergy, Severe, Swelling, 06/12/17) povidone-iodine (Unverified Allergy, Severe, Swelling, 06/12/17) shellfish derived (Unverified Allergy, Severe, 06/12/17) sodium iodide (Unverified Allergy, Severe, Swelling, 06/12/17) sodium iodide (Unverified Allergy, Severe, Swelling, 06/12/17) Objective . Vital Signs Date Time Temp Pulse Resp B/P (MAP) Pulse Ox O2 Delivery O2 Flow Rate FiO2 08/21/17 12:23 98.4 65 15 118/63 (81) 94 08/21/17 10:00 75 08/21/17 09:00 72 08/21/17 08:20 98.6 73 14 129/71 (90) 96 08/21/17 08:00 64 08/21/17 07:00 76 08/21/17 06:00 68 08/21/17 05:00 64 08/21/17 04:50 98.6 69 18 105/73 (84) 96 08/21/17 04:00 76 08/21/17 03:00 74 08/21/17 02:00 68 08/21/17 01:00 68 08/21/17 00:23 76 08/21/17 00:10 97.7 73 18 102/70 (81) 96 08/20/17 23:00 70 08/20/17 22:00 76 08/20/17 21:27 95 08/20/17 21:00 82 08/20/17 20:03 78 08/20/17 19:52 98.0 74 16 106/60 (75) 98 08/20/17 19:00 78 08/20/17 18:00 70 08/20/17 17:40 62 16 99 Nasal Cannula 2 08/20/17 17:30 97.8 60 16 112/63 (79) 98 Nasal Cannula 2 08/20/17 17:15 65 15 109/60 (76) 97 Nasal Cannula 2 08/20/17 17:10 97.6 67 15 113/66 (82) 99 Nasal Cannula 3 08/20/17 15:00 98.3 70 16 99/53 (68) 97 08/20/17 15:00 74 08/20/17 14:00 68 08/20/17 13:00 70 . Laboratory Tests Test 08/19/17 14:25 08/20/17 03:23 08/21/17 02:50 White Blood Count 12.1 TH/MM3 11.3 TH/MM3 10.9 TH/MM3 Red Blood Count 5.36 MIL/MM3 4.95 MIL/MM3 4.64 MIL/MM3 Hemoglobin 14.6 GM/DL 13.4 GM/DL 12.7 GM/DL Hematocrit 43.6 % 39.5 % 37.7 % Mean Corpuscular Volume 81.3 FL 79.8 FL 81.1 FL Mean Corpuscular Hemoglobin 27.3 PG 27.1 PG 27.4 PG Mean Corpuscular Hemoglobin Concent 33.6 % 34.0 % 33.8 % Red Cell Distribution Width 17.5 % 17.1 % 17.2 % Platelet Count 102 TH/MM3 98 TH/MM3 172 TH/MM3 Mean Platelet Volume 10.1 FL 9.4 FL 9.0 FL Neutrophils (%) (Auto) 64.6 % 70.4 % Lymphocytes (%) (Auto) 19.1 % 17.3 % Monocytes (%) (Auto) 13.3 % 10.3 % Eosinophils (%) (Auto) 1.7 % 1.5 % Basophils (%) (Auto) 1.3 % 0.5 % Neutrophils # (Auto) 7.3 TH/MM3 7.6 TH/MM3 Lymphocytes # (Auto) 2.2 TH/MM3 1.9 TH/MM3 Monocytes # (Auto) 1.5 TH/MM3 1.1 TH/MM3 Eosinophils # (Auto) 0.2 TH/MM3 0.2 TH/MM3 Basophils # (Auto) 0.2 TH/MM3 0.1 TH/MM3 CBC Comment DIFF FINAL AUTO DIFF Differential Comment FINAL DIFF MANUAL Differential Total Cells Counted 100 Neutrophils % (Manual) 71 % Band Neutrophils % 3 % Lymphocytes % 13 % Monocytes % 9 % Eosinophils % 2 % Neutrophils # (Manual) 8.3 TH/MM3 Metamyelocytes 2 % Toxic Granulation 1+ Platelet Estimate NORMAL Platelet Morphology Comment NORMAL Ovalocytes 1+ Laboratory Tests Test 08/20/17 03:23 08/21/17 02:50 Creatinine 0.73 MG/DL 0.93 MG/DL Estimat Glomerular Filtration Rate 110 ML/MIN 83 ML/MIN Blood Urea Nitrogen 19 MG/DL Random Glucose 283 MG/DL Total Protein 6.4 GM/DL Albumin 2.2 GM/DL Calcium Level 8.4 MG/DL Phosphorus Level 3.2 MG/DL Magnesium Level 2.0 MG/DL Alkaline Phosphatase 85 U/L Aspartate Amino Transf (AST/SGOT) 17 U/L Alanine Aminotransferase (ALT/SGPT) 19 U/L Total Bilirubin 0.3 MG/DL Sodium Level 137 MEQ/L Potassium Level 4.5 MEQ/L Chloride Level 101 MEQ/L Carbon Dioxide Level 28.9 MEQ/L Anion Gap 7 MEQ/L B-Type Natriuretic Peptide 704 PG/ML Free Thyroxine 1.34 NG/DL Thyroid Stimulating Hormone 3rd Gen 2.420 uIU/ML Microbiology Date/Time Source Procedure Growth Status 08/21/17 02:50 Blood Peripheral Aerobic Blood Culture Pending Received 08/21/17 02:50 Blood Peripheral Anaerobic Blood Culture Pending Received 08/21/17 01:43 Blood Peripheral Aerobic Blood Culture Pending Received 08/21/17 01:43 Blood Peripheral Anaerobic Blood Culture Pending Received 08/20/17 16:24 Wound Toe Fungal Smear - Final NO FUNGAL ELEMENTS SEEN. Resulted 08/20/17 16:24 Wound Toe Fungal Culture Pending Resulted 08/20/17 16:24 Wound Toe Acid Fast Stain Pending Received 08/20/17 16:24 Wound Toe Mycobacterial Culture Pending Received 08/20/17 16:24 Wound Toe Gram Stain - Final Resulted 08/20/17 16:24 Wound Toe Wound Culture Pending Resulted Imaging Last Impressions Aorta w/Runoff CTA 08/19/17 0000 Signed Impressions: CONCLUSION: 1. Atherosclerotic changes without significant stenosis bilateral lower extrem ities. Chest X-Ray 08/15/17 0955 Signed Impressions: CONCLUSION: 1. No acute abnormality or significant interval change. Toe X-Ray 08/15/17 0000 Signed Impressions: CONCLUSION: Questionable small erosion distal phalanx right second toe. This could be infec tious in nature if there is clinical evidence for soft tissue infection. Renal Ultrasound 08/15/17 0000 Signed Impressions: CONCLUSION: 1. No hydronephrosis. 2. Increased echogenicity most characteristic of medical renal disease. Foot MRI 08/15/17 0000 Signed Impressions: CONCLUSION: 1. No evidence for osteomyelitis. Soft tissue swelling at the second toe. Physical Exam GENERAL: WDWN male patient, INAD. Asleep but easily awakens to voice. Appears comfortable. SKIN: No rashes or lesions. Cool and dry. HEAD: Atraumatic. Normocephalic. EYES: Pupils equal round and reactive. Extraocular motions intact. No scleral icterus. No injection or drainage. ENT: Nose without bleeding or purulent drainage. Airway patent. MMM. NECK: Trachea midline. Supple, nontender, no meningeal signs. CARDIOVASCULAR: HS audible. ICD, has mild pink color on his L chest, not indurated, seems swollen, not tender, has well healed incision RESPIRATORY: Nonlabored. Clear to auscultation. Breath sounds equal bilaterally. No wheezes, rales, or rhonchi. GASTROINTESTINAL: Abdomen soft, non-tender, nondistended. MUSCULOSKELETAL: Has wet gangrene Right 2nd toe with erythema on dorsum of his foot. NEUROLOGICAL: Grossly non-focal. Psych calm and cooperative IV line sites with no e.o infection. Assessment & Plan Remarks Sepsis High grade MSSA bacteremia - source ?2nd toe, concern with ICD Right 2nd toe wet gangrene, osteomyelitis. Hepatitis C antibody positive. AICD status. CAD with severe ischemic cardiomyopathy. Thrombocytopenia likely due to severe infection, ?DIC Recs Continue IV Ancef Continue Genta IV for synergy pending BCX turning negative and source control. Continue Teflaro IV Follow cultures to assess ongoing need of Genta IV and double coverage. Follow path Follow clinically. Needs IV antibiotics on discharge. Michelle Galan MD August 21, 2017 12:27
--- NOTE | 2017-08-21 15:52 | HHI.PR ---
Subjective Remarks 08-20 Patient is scheduled to have right second toe amputated due to gangrene and osteomyelitis today Has some hypotension we will give some fluids since patient is n.p.o. Discussed with patient and RN Kenyon. labs 08-21 HAD 2ND RIGHT TOE AMPUTATION ON AUGUST 20 NO NEW COMPLAINTS DW RN AND PT AND CM Objective Vitals Vital Signs Date Time Temp Pulse Resp B/P (MAP) Pulse Ox O2 Delivery O2 Flow Rate FiO2 08/21/17 12:23 98.4 65 15 118/63 (81) 94 08/21/17 10:00 75 08/21/17 09:00 72 08/21/17 08:20 98.6 73 14 129/71 (90) 96 08/21/17 08:00 64 08/21/17 07:00 76 08/21/17 06:00 68 08/21/17 05:00 64 08/21/17 04:50 98.6 69 18 105/73 (84) 96 08/21/17 04:00 76 08/21/17 03:00 74 08/21/17 02:00 68 08/21/17 01:00 68 08/21/17 00:23 76 08/21/17 00:10 97.7 73 18 102/70 (81) 96 08/20/17 23:00 70 08/20/17 22:00 76 08/20/17 21:27 95 08/20/17 21:00 82 08/20/17 20:03 78 08/20/17 19:52 98.0 74 16 106/60 (75) 98 08/20/17 19:00 78 08/20/17 18:00 70 08/20/17 17:40 62 16 99 Nasal Cannula 2 08/20/17 17:30 97.8 60 16 112/63 (79) 98 Nasal Cannula 2 08/20/17 17:15 65 15 109/60 (76) 97 Nasal Cannula 2 08/20/17 17:10 97.6 67 15 113/66 (82) 99 Nasal Cannula 3 I/O 08/20/17 08/20/17 08/20/17 08/21/17 08/21/17 08/21/17 07:00 15:00 23:00 07:00 15:00 23:00 Intake Total 902 ml 370 ml 342.25 ml Output Total 1100 ml 1610 ml 1475 ml Balance -198 ml -1240 ml -1132.75 ml Intake Oral 500 ml 120 ml 240 ml IV Total 402 ml 102.25 ml Other 250 ml Output Urine Total 1100 ml 1610 ml 1475 ml Estimated Blood Loss 0 ml # Voids 0 Result Diagram: 08/21/17 0250 08/21/17 0250 Other Results Laboratory Tests Test 08/19/17 04:05 08/19/17 14:25 08/19/17 18:47 08/20/17 03:23 White Blood Count 12.4 TH/MM3 12.1 TH/MM3 11.3 TH/MM3 Red Blood Count 5.20 MIL/MM3 5.36 MIL/MM3 4.95 MIL/MM3 Hemoglobin 14.2 GM/DL 14.6 GM/DL 13.4 GM/DL Hematocrit 42.0 % 43.6 % 39.5 % Mean Corpuscular Volume 80.7 FL 81.3 FL 79.8 FL Mean Corpuscular Hemoglobin 27.3 PG 27.3 PG 27.1 PG Mean Corpuscular Hemoglobin Concent 33.8 % 33.6 % 34.0 % Red Cell Distribution Width 17.0 % 17.5 % 17.1 % Platelet Count 80 TH/MM3 102 TH/MM3 98 TH/MM3 Mean Platelet Volume 10.2 FL 10.1 FL 9.4 FL Blood Urea Nitrogen 28 MG/DL Creatinine 0.77 MG/DL 0.73 MG/DL Random Glucose 232 MG/DL Calcium Level 8.9 MG/DL Sodium Level 138 MEQ/L Potassium Level 4.1 MEQ/L Chloride Level 103 MEQ/L Carbon Dioxide Level 26.8 MEQ/L Anion Gap 8 MEQ/L Estimat Glomerular Filtration Rate 103 ML/MIN 110 ML/MIN B-Type Natriuretic Peptide 847 PG/ML Prothrombin Time 11.4 SEC Prothromb Time International Ratio 1.1 RATIO Activated Partial Thromboplast Time 24.1 SEC 32.2 SEC 37.3 SEC Neutrophils (%) (Auto) 64.6 % Lymphocytes (%) (Auto) 19.1 % Monocytes (%) (Auto) 13.3 % Eosinophils (%) (Auto) 1.7 % Basophils (%) (Auto) 1.3 % Neutrophils # (Auto) 7.3 TH/MM3 Lymphocytes # (Auto) 2.2 TH/MM3 Monocytes # (Auto) 1.5 TH/MM3 Eosinophils # (Auto) 0.2 TH/MM3 Basophils # (Auto) 0.2 TH/MM3 CBC Comment DIFF FINAL Differential Comment Test 08/20/17 10:15 08/20/17 14:27 08/20/17 18:09 08/20/17 21:31 Activated Partial Thromboplast Time 42.0 SEC 39.5 SEC Gentamicin Level Trough 0.7 MCG/ML Gentamicin Level Peak 1.1 MCG/ML Test 08/21/17 02:50 White Blood Count 10.9 TH/MM3 Red Blood Count 4.64 MIL/MM3 Hemoglobin 12.7 GM/DL Hematocrit 37.7 % Mean Corpuscular Volume 81.1 FL Mean Corpuscular Hemoglobin 27.4 PG Mean Corpuscular Hemoglobin Concent 33.8 % Red Cell Distribution Width 17.2 % Platelet Count 172 TH/MM3 Mean Platelet Volume 9.0 FL Neutrophils (%) (Auto) 70.4 % Lymphocytes (%) (Auto) 17.3 % Monocytes (%) (Auto) 10.3 % Eosinophils (%) (Auto) 1.5 % Basophils (%) (Auto) 0.5 % Neutrophils # (Auto) 7.6 TH/MM3 Lymphocytes # (Auto) 1.9 TH/MM3 Monocytes # (Auto) 1.1 TH/MM3 Eosinophils # (Auto) 0.2 TH/MM3 Basophils # (Auto) 0.1 TH/MM3 CBC Comment AUTO DIFF Differential Total Cells Counted 100 Neutrophils % (Manual) 71 % Band Neutrophils % 3 % Lymphocytes % 13 % Monocytes % 9 % Eosinophils % 2 % Neutrophils # (Manual) 8.3 TH/MM3 Metamyelocytes 2 % Differential Comment FINAL DIFF MANUAL Toxic Granulation 1+ Platelet Estimate NORMAL Platelet Morphology Comment NORMAL Ovalocytes 1+ Activated Partial Thromboplast Time 44.9 SEC Blood Urea Nitrogen 19 MG/DL Creatinine 0.93 MG/DL Random Glucose 283 MG/DL Total Protein 6.4 GM/DL Albumin 2.2 GM/DL Calcium Level 8.4 MG/DL Phosphorus Level 3.2 MG/DL Magnesium Level 2.0 MG/DL Alkaline Phosphatase 85 U/L Aspartate Amino Transf (AST/SGOT) 17 U/L Alanine Aminotransferase (ALT/SGPT) 19 U/L Total Bilirubin 0.3 MG/DL Sodium Level 137 MEQ/L Potassium Level 4.5 MEQ/L Chloride Level 101 MEQ/L Carbon Dioxide Level 28.9 MEQ/L Anion Gap 7 MEQ/L Estimat Glomerular Filtration Rate 83 ML/MIN B-Type Natriuretic Peptide 704 PG/ML Free Thyroxine 1.34 NG/DL Thyroid Stimulating Hormone 3rd Gen 2.420 uIU/ML Imaging Last Impressions Aorta w/Runoff CTA 08/19/17 Signed Impressions: CONCLUSION: 1. Atherosclerotic changes without significant stenosis bilateral lower extrem ities. Chest X-Ray 08/15/17 0964 Signed Impressions: CONCLUSION: 1. No acute abnormality or significant interval change. Toe X-Ray 08/15/17 Signed Impressions: CONCLUSION: Questionable small erosion distal phalanx right second toe. This could be infec tious in nature if there is clinical evidence for soft tissue infection. Renal Ultrasound 08/15/17 Signed Impressions: CONCLUSION: 1. No hydronephrosis. 2. Increased echogenicity most characteristic of medical renal disease. Foot MRI 08/15/17 Signed Impressions: CONCLUSION: 1. No evidence for osteomyelitis. Soft tissue swelling at the second toe. Objective Remarks GENERAL: Awake alert and oriented 3 talkative and cooperative SKIN: Warm and dry. Right second toe is gangrenous and black HEAD: Atraumatic. Normocephalic. EYES: Pupils equal and round. No scleral icterus. No injection or drainage. extraocular muscles intact ENT: No nasal bleeding or discharge. Mucous membranes pink and moist. Tongue is midline NECK: Trachea midline. No JVD. Supple CARDIOVASCULAR: Regular rate and rhythm. S1-S2 no S3 or S4 RESPIRATORY: No accessory muscle use. Clear to auscultation. Breath sounds equal bilaterally. GASTROINTESTINAL: Abdomen soft, non-tender, nondistended. Hepatic and splenic margins not palpable. MUSCULOSKELETAL: Extremities without clubbing, cyanosis, or edema. No obvious deformities. Right second toe is black and gangrenous NEUROLOGICAL: Awake and alert. No obvious cranial nerve deficits. Motor grossly within normal limits. Five out of 5 muscle strength in the arms and legs. Normal speech. PSYCHIATRIC: Appropriate mood and affect; insight and judgment normal. Procedures August 20, 2017 Pre Op Diagnosis: gangrene with osteomyelitis right 2nd toe Post Op Diagnosis: same Surgeon: Ron Goldman DPM Aquatics Specialist(s): Staff Procedure: amputation right 2nd toe Findings: Consistent with diagnosis. Right 2nd toe with necrotic tissue to entire digit. Foul odor slightly present. Margins clean without purulence. Two semi-elliptical incisions made to disarticulate digit in its entirety at metatarsophalangeal joint level. 2nd metatarsal head with white healthy cartilage cap. No purulence noted. Culture taken prior to irrigation and primary closure with 2-0 nylon suture. Dressing with xeroform, 4x4, cast padding, livia. Weightbearing as tolerated to heel in surgical shoe for transfers only. Additional Information: see findings Complications: none Specimen(s) removed: 1. toe right 2nd 2. culture right foot Estimated blood loss: minimal Anesthesia: MAC, Local (10mL 2% lidocaine plain) Drains: None Tourniquet time (min at mmHg) n/a Patient to: PACU Patient Condition: Good Date/Time of Procedure: SEE SURGICAL CARE RECORD Ron Goldman DPM Medications and IVs Current Medications Sodium Chloride (NS Flush) 2 ml UNSCH PRN IVF FLUSH AFTER USING IV ACCESS Last administered on 08/19/17at 08:31; Start 08/15/17 at 10:00 Piperacillin Sod/ Tazobactam Sod 50 ml @ 100 mls/hr ONCE ONCE IV Last administered on 08/15/17at 12:07; Start 08/15/17 at 11:30; Stop 08/15/17 at 11:59 ; Status DC Vancomycin HCl 1350 mg/Sodium Chloride 513.5 ml @ 250 mls/hr ONCE ONCE IV Last administered on 08/15/17at 13:27; Start 08/15/17 at 11:30; Stop 08/15/17 at 13:33; Status DC Aspirin (Aspirin Chew) 162 mg ONCE ONCE CHEW Last administered on 08/15/17at 12 :02; Start 08/15/17 at 11:30; Stop 08/15/17 at 11:31; Status DC Heparin Sodium (Porcine) (Heparin Inj) 4,000 units ONCE ONCE IV PUSH Last administered on 08/15/17at 12:03; Start 08/15/17 at 11:45; Stop 08/15/17 at 11:46 ; Status DC Heparin Sodium/ Dextrose 250 ml @ 10 mls/hr TITRATE PRN IV Coagulation Management Last administered on 08/16/17at 16:19; Start 08/15/17 at 11:45; Stop 08/20/17 at 21:48; Status DC Dextrose (D50w (Vial) Inj) 50 ml UNSCH PRN IV PUSH HYPOGLYCEMIA-SEE COMMENTS; Start 08/15/17 at 13:30 Glucagon (Glucagon Inj) 1 mg UNSCH PRN OTHER HYPOGLYCEMIA-SEE COMMENTS; Start 08/15/17 at 13:30 Insulin Aspart (NovoLOG SUPPLEMENTAL SCALE) 1 ACHS SLIDING SCALE SQ Last administered on 08/21/17at 12:00; Start 08/15/17 at 17:00 Sodium Chloride 1,000 ml @ 60 mls/hr [id number] IV Last administered on at 18:23; Start 08/15/17 at 13:30; Stop 08/18/17 at 10:00; Status DC Piperacillin Sod/ Tazobactam Sod 50 ml @ 100 mls/hr Q6H IV Last administered on 08/17/17at 17:02; Start 08/15/17 at 18:00; Stop 08/18/17 at 09:02; Status DC Pharmacy Profile Note 0 ml @ 0 mls/hr UNSCH OTHER ; Start 08/15/17 at 13:30; Stop 08/17/17 at 11:26; Status DC Aspirin (Ecotrin Ec) 162 mg DAILY PO Last administered on 08/17/17at 09:05; Start 08/16/17 at 09:00; Stop 08/19/17 at 12:04; Status DC Famotidine (Pepcid) 20 mg BID PO Last administered on 08/18/17at 08:52; Start at 21:00; Stop 08/18/17 at 10:16; Status DC Pravastatin Sodium (Pravachol) 40 mg DAILY PO Last administered on 08/21/17at 08 :09; Start 08/16/17 at 09:00 Albuterol/ Ipratropium (Duoneb Neb) 1 ampule Q4HR NEB PRN NEB SHORTNESS OF BREATH Last administered on 08/15/17at 15:38; Start 08/15/17 at 13:45 Vancomycin HCl 1500 mg/Sodium Chloride 515 ml @ 250 mls/hr Q24H IV Last administered on 08/16/17at 14:18; Start 08/16/17 at 14:00; Stop 08/16/17 at 16:40 ; Status DC Acetaminophen (Tylenol) 650 mg Q4H PRN PO FEVER/PAIN 1-5 Last administered on at 11:45; Start 08/15/17 at 14:30 Acetaminophen/ Hydrocodone Bitart (Rozel 5-325 Mg) 1 tab Q4H PRN PO PAIN 6-10 Last administered on 08/19/17 16:28; Start 08/15/17 at 14:30 Gadobenate Dimeglumine (Multihance Pf Inj) 18 ml STK-MED ONCE IV Last administered on 08/15/17at 17:21; Start 08/15/17 at 17:21; Stop 08/15/17 at 17:22 ; Status DC Metoclopramide HCl (Reglan Inj) 10 mg ONCE ONCE IV PUSH Last administered on 02:05; Start 08/16/17 at 02:15; Stop 08/16/17 at 02:16; Status DC Metoclopramide HCl (Reglan Inj) 5 mg Q6H PRN IV PUSH NAUSEA OR VOMITING Last administered on 08/16/17at 20:10; Start 08/16/17 at 02:30 Ondansetron HCl (Zofran Odt) 4 mg Q6H PRN PO NAUSEA OR VOMITING Last administered on 08/19/17 11:50; Start 08/16/17 at 02:30 Metoprolol Tartrate (Lopressor Inj) 5 mg ONCE ONCE IV PUSH Last administered on 08/16/17at 02:39; Start 08/16/17 at 02:45; Stop 08/16/17 at 02:46; Status DC Metoprolol Tartrate (Lopressor Inj) 5 mg Q5M PRN IV PUSH ATRIAL FLUTTER Last administered on 08/16/17at 03:06; Start 08/16/17 at 02:45 Miscellaneous Information ([facility] [place] SPECIFIC LAB TO BE SHERRON... ONCE ONCE .XX ; Start 08/18/17 at 12:45; Stop 08/18/17 at 12:46; Status Cancel Insulin Detemir (Levemir Inj) 10 units HS SQ Last administered on 08/20/17at 20: 00; Start 08/16/17 at 21:00 Vancomycin HCl 1000 mg/Sodium Chloride 250 ml @ 250 mls/hr Q12H IV Last administered on 08/17/17at 01:06; Start 08/17/17 at 02:00; Stop 08/17/17 at 11:26 ; Status DC Miscellaneous Information ([facility] [place] Info) SPECIFIC LAB TO BE ... ONCE ONCE .XX ; Start 08/18/17 at 13:45; Stop 08/18/17 at 13:46; Status DC Benzonatate (Tessalon) 100 mg TID PRN PO COUGH Last administered on 08/20/17at 02:00; Start 08/17/17 at 03:00 Guaifenesin/ Codeine Phosphate (Robitussin Ac 200-20 Mg/10 ml Liq) 10 ml Q6H PRN PO COUGH; Start 08/17/17 at 03:00 Magnesium Sulfate/ Dextrose 100 ml @ 100 mls/hr Q1H IV Last administered on at 09:45; Start 08/17/17 at 08:45; Stop 08/17/17 at 10:44; Status DC Cefazolin Sodium/ Dextrose 50 ml @ 100 mls/hr Q8H IV Last administered on 08/17at 21:32; Start 08/17/17 at 13:00; Stop 08/17/17 at 23:30; Status DC Carvedilol (Coreg) 6.25 mg Q12HR PO Last administered on 08/21/17at 08:09; Start 08/17/17 at 11:30 Sacubitril/ Valsartan (Entresto 49-51 Mg) 1 tab BID PO Last administered on at 08:09; Start 08/17/17 at 21:00 Cefepime HCl 1000 mg/Sodium Chloride 100 ml @ 200 mls/hr Q8H IV Last administered on 08/18/17at 08:49; Start 08/18/17 at 00:00; Stop 08/18/17 at 09:01 ; Status DC Piperacillin Sod/ Tazobactam Sod 50 ml @ 100 mls/hr Q6H IV Last administered on 08/19/17at 10:00; Start 08/18/17 at 10:00; Stop 08/19/17 at 11:16; Status DC Cefazolin Sodium/ Dextrose 50 ml @ 100 mls/hr Q8H IV Last administered on 08/21at 08:10; Start 08/18/17 at 09:00 Aspirin (Aspirin Chew) 81 mg DAILY CHEW Last administered on 08/21/17at 08:09; Start 08/19/17 at 12:10 Pharmacy Profile Note 0 ml @ 0 mls/hr UNSCH OTHER ; Start 08/19/17 at 11:15 Heparin Sodium/ Dextrose 250 ml @ 16.128 mls/ hr TITRATE PRN IV Coagulation Management Last administered on 08/21/17at 10:18; Start 08/19/17 at 12:30 Gentamicin Sulfate 90 mg/ Sodium Chloride 102.25 ml @ 200 mls/ hr Q8H IV Last administered on 08/21/17at 15:23; Start 08/19/17 at 14:00 Miscellaneous Information ([facility] [place]) SPECIFIC LAB TO BE SHERRON... ONCE ONCE .XX ; Start 08/20/17 at 13:45; Stop 08/20/17 at 13:46; Status DC Miscellaneous Information ([facility] [place] Info) SPECIFIC LAB TO BE SHERRON... ONCE ONCE .XX Last administered on 08/20/17at 15:00; Start 08/20/17 at 15:00; Stop 08/20/17 at 15:01; Status DC Iohexol (Omnipaque 350 Inj) 100 ml STK-MED ONCE IVCONTRAST Last administered on 08/19/17at 13:57; Start 08/19/17 at 13:57; Stop 08/19/17 at 13:58; Status DC Sodium Chloride 1,000 ml @ 100 mls/hr Q10H IV Last administered on 08/21/17at 10:17; Start 08/20/17 at 11:15 Pantoprazole Sodium (Protonix Inj) 40 mg ONCE ONCE IV PUSH Last administered on 08/20/17at 12:55; Start 08/20/17 at 12:45; Stop 08/20/17 at 12:50; Status DC Pantoprazole Sodium (Protonix) 40 mg DAILY PO Last administered on 08/21/17at 08 :09; Start 08/21/17 at 09:00 Ketamine HCl (Ketalar Inj) 50 mg STK-MED ONCE .ROUTE ; Start 08/20/17 at 15:41; Stop 08/20/17 at 15:42; Status DC Lidocaine HCl (Xylocaine-Mpf 2% Inj) 20 ml STK-MED ONCE .ROUTE Last administered on 08/20/17at 16:28; Start 08/20/17 at 16:24; Stop 08/20/17 at 16:25 ; Status DC Midazolam HCl (Versed Inj) 2 mg STK-MED ONCE .ROUTE ; Start 08/20/17 at 17:16; Stop 08/20/17 at 17:17; Status DC Miscellaneous Information ([facility] [place] [facility] ALL NURSING DEPARTME... UNSCH PRN .XX SEE LABEL COMMENTS; Start 08/20/17 at 17:07; Stop 08/21/17 at 17: 06 Miscellaneous Information ([facility] [place] Info) SPECIFIC LAB TO BE DRAWN:GENTAMICIN TROUGH DATE TO... ONCE ONCE .XX ; Start 08/21/17 at 21:45; Stop 08/21/17 at 21:46 Miscellaneous Information ([facility] [place] Info) SPECIFIC LAB TO BE DRAWN:GENTAMICIN PEAK DATE TO... ONCE ONCE .XX ; Start 08/21/17 at 23:00; Stop 08/21/17 at 23:01 A/P Problem List: (1) Severe sepsis ICD Code: A41.9 - Sepsis, unspecified organism; R65.20 - Severe sepsis without septic shock (2) Elevated troponin ICD Code: R74.8 - Abnormal levels of other serum enzymes (3) gangrene of the right second toe Assessment and Plan Severe sepsis due to gangrene/ infection of the right second toe Staph aureus bacteremia-- persistent bacteremia- check echo- may need CARA ID [id number] - on zosyn and Ancef Repeat BC to document clearing in next few days May need CARA Podiatry following Vascular surgery ff- requested for CTA runoff- DONE FOR SURGERY ON RIGHT 2ND TOE 08-20 WITH PODIATRY August 20, 2017 Pre Op Diagnosis: gangrene with osteomyelitis right 2nd toe Surgeon: Ron Goldman DPAnnmarie Procedure: amputation right 2nd toe Findings: Consistent with diagnosis. Right 2nd toe with necrotic tissue to entire digit. Foul odor slightly present. Margins clean without purulence. Two semi-elliptical incisions made to disarticulate digit in its entirety at metatarsophalangeal joint level. 2nd metatarsal head with white healthy cartilage cap. No purulence noted. Culture taken prior to irrigation and primary closure with 2-0 nylon suture. Dressing with xeroform, 4x4, cast padding, livia. Weightbearing as tolerated to heel in surgical shoe for transfers only. Specimen(s) removed: 1. toe right 2nd 2. culture right foot Ischemic cardiomyopathy EF 25% - nstemi, Debrillator fired evening 5.25 NSTEMI with history of CAD- had cardiac cath two months ago with severe three vessel disease- was evaluated by CT surgery at the time with poor targets for redo sternotomy high metabolic demand from sepsis - clinically feeling better - continue electrolyte monitoring - ASA, Heparin drip- DC due to thrombocytopenia- Hematology consutled for recommendation - continue Entresto, Coreg - will start ASA Acute kidney injury; improved- started on gentle IV hydration in light of cardiomyopathy- monitor renal function -thrombocytopenia- likely due to sepsis - continue ASA - FF CBC -seen by Dr. Jones. HIT ab negative- restart heparin drip- will d/w Dr. Jones - will also DC Pepcid- due to thrombocytopenia Diabetes mellitus- sliding scale -COPD with no exacerbation; neb treatment as needed. -diabetes mellitus; uncontrolled- hold oral hypoglycemics- start on accu-check with SSI. continue Levemir and adjust -DVT prophylaxis;encoruage increase activity palliative care ff CM ff - assisting with transfer to a tertiary center for transplant-- no insurance, assisting us with Medicaid application Discharge Planning PENDING ID CLEARANCE Lavelle Patricia DO August 21, 2017 15:52
[2017-08-21 16:23] LABS: HEMOGLOBIN A1C 9.8 % (4.3-6.0)
--- NOTE | 2017-08-21 19:13 | PD.CARD.PN ---
Subjective Subjective Remarks appears comfortable in nad Objective Medications Current Medications Medications (Trade) Dose Ordered Sig/Erika Route Start Time Stop Time Status Last Admin (NS Flush) 2 ml UNSCH PRN IVF 08/15/17 10:00 08/19/17 08:31 (D50w (Vial) Inj) 50 ml UNSCH PRN IV PUSH 08/15/17 13:30 (Glucagon Inj) 1 mg UNSCH PRN OTHER 08/15/17 13:30 (NovoLOG SUPPLEMENTAL SCALE) 1 ACHS SLIDING SCALE SQ 08/15/17 17:00 08/21/17 17:00 (Pravachol) 40 mg DAILY PO 08/16/17 09:00 08/21/17 08:09 (Duoneb Neb) 1 ampule Q4HR NEB PRN NEB 08/15/17 13:45 08/15/17 15:38 (Tylenol) 650 mg Q4H PRN PO 08/15/17 14:30 08/18/17 11:45 ([place] 5-325 Mg) 1 tab Q4H PRN PO 08/15/17 14:30 08/19/17 16:28 (Reglan Inj) 5 mg Q6H PRN IV PUSH 08/16/17 02:30 08/16/17 20:10 (Zofran Odt) 4 mg Q6H PRN PO 08/16/17 02:30 08/19/17 11:50 (Lopressor Inj) 5 mg Q5M PRN IV PUSH 08/16/17 02:45 08/16/17 03:06 (Levemir Inj) 10 units HS SQ 08/16/17 21:00 08/20/17 20:00 (Tessalon) 100 mg TID PRN PO 08/17/17 03:00 08/20/17 02:00 (Robitussin Ac 200-20 Mg/10 ml Liq) 10 ml Q6H PRN PO 08/17/17 03:00 (Coreg) 6.25 mg Q12HR PO 08/17/17 11:30 08/21/17 08:09 (Entresto 49-51 Mg) 1 tab BID PO 08/17/17 21:00 08/21/17 08:09 Cefazolin Sodium/ Dextrose 50 ml @ 100 mls/hr Q8H IV 5/27/18 09:00 08/21/17 17:39 (Aspirin Chew) 81 mg DAILY CHEW 08/19/17 12:10 08/21/17 08:09 Pharmacy Profile Note 0 ml @ 0 mls/hr UNSCH OTHER 08/19/17 11:15 Heparin Sodium/ Dextrose 250 ml @ 16.128 mls/ hr TITRATE PRN IV 08/19/17 12:30 08/21/17 10:18 Gentamicin Sulfate 90 mg/ Sodium Chloride 102.25 ml @ 200 mls/ hr Q8H IV 08/19/17 14:00 08/21/17 15:23 Sodium Chloride 1,000 ml @ 100 mls/hr Q10H IV 08/20/17 11:15 Future Hold 08/21/17 10:17 (Protonix) 40 mg DAILY PO 08/21/17 09:00 08/21/17 08:09 ([facility] [place] [facility] Ordered Lab Info) SPECIFIC LAB TO BE DRAWN:GENTAMICIN TROUGH DATE TO... ONCE ONCE .XX 08/21/17 21:45 08/21/17 21:46 ([facility] [place] [facility] Ordered Lab Info) SPECIFIC LAB TO BE DRAWN:GENTAMICIN PEAK DATE TO... ONCE ONCE .XX 08/21/17 23:00 08/21/17 23:01 Vital Signs / I&O Vital Signs Date Time Temp Pulse Resp B/P (MAP) Pulse Ox O2 Delivery O2 Flow Rate FiO2 08/21/17 18:00 74 08/21/17 17:00 66 08/21/17 16:00 78 08/21/17 15:30 98.2 68 14 151/64 (93) 97 08/21/17 15:00 75 08/21/17 14:00 78 08/21/17 13:00 68 08/21/17 12:23 98.4 65 15 118/63 (81) 94 08/21/17 12:00 68 08/21/17 11:00 74 08/21/17 10:00 75 08/21/17 09:00 72 08/21/17 08:20 98.6 73 14 129/71 (90) 96 08/21/17 08:00 64 08/21/17 07:00 76 08/21/17 06:00 68 08/21/17 05:00 64 08/21/17 04:50 98.6 69 18 105/73 (84) 96 08/21/17 04:00 76 08/21/17 03:00 74 08/21/17 02:00 68 08/21/17 01:00 68 08/21/17 00:23 76 08/21/17 00:10 97.7 73 18 102/70 (81) 96 08/20/17 23:00 70 08/20/17 22:00 76 08/20/17 21:27 95 08/20/17 21:00 82 08/20/17 20:03 78 08/20/17 19:52 98.0 74 16 106/60 (75) 98 I/O 08/20/17 08/20/17 08/20/17 08/21/17 08/21/17 08/21/17 07:00 15:00 23:00 07:00 15:00 23:00 Intake Total 902 ml 370 ml 342.25 ml 1200 ml Output Total 1100 ml 1610 ml 1475 ml 1800 ml Balance -198 ml -1240 ml -1132.75 ml -600 ml Intake Oral 500 ml 120 ml 240 ml 1200 ml IV Total 402 ml 102.25 ml Other 250 ml Output Urine Total 1100 ml 1610 ml 1475 ml 1800 ml Estimated Blood Loss 0 ml # Voids 0 Physical Exam GENERAL: SKIN: Warm and dry. HEAD: Normocephalic. EYES: No scleral icterus. No injection or drainage. NECK: Supple, trachea midline. No JVD or lymphadenopathy. CARDIOVASCULAR: Regular rate and rhythm without murmurs, gallops, or rubs. RESPIRATORY: Breath sounds equal bilaterally. No accessory muscle use. GASTROINTESTINAL: Abdomen soft, non-tender, nondistended. MUSCULOSKELETAL: No cyanosis, or edema. BACK: Nontender without obvious deformity. No CVA tenderness. Laboratory Laboratory Tests Test 08/20/17 21:31 08/21/17 02:50 Gentamicin Level Peak 1.1 MCG/ML White Blood Count 10.9 TH/MM3 Red Blood Count 4.64 MIL/MM3 Hemoglobin 12.7 GM/DL Hematocrit 37.7 % Mean Corpuscular Volume 81.1 FL Mean Corpuscular Hemoglobin 27.4 PG Mean Corpuscular Hemoglobin Concent 33.8 % Red Cell Distribution Width 17.2 % Platelet Count 172 TH/MM3 Mean Platelet Volume 9.0 FL Neutrophils (%) (Auto) 70.4 % Lymphocytes (%) (Auto) 17.3 % Monocytes (%) (Auto) 10.3 % Eosinophils (%) (Auto) 1.5 % Basophils (%) (Auto) 0.5 % Neutrophils # (Auto) 7.6 TH/MM3 Lymphocytes # (Auto) 1.9 TH/MM3 Monocytes # (Auto) 1.1 TH/MM3 Eosinophils # (Auto) 0.2 TH/MM3 Basophils # (Auto) 0.1 TH/MM3 CBC Comment AUTO DIFF Differential Total Cells Counted 100 Neutrophils % (Manual) 71 % Band Neutrophils % 3 % Lymphocytes % 13 % Monocytes % 9 % Eosinophils % 2 % Neutrophils # (Manual) 8.3 TH/MM3 Metamyelocytes 2 % Differential Comment FINAL DIFF MANUAL Toxic Granulation 1+ Platelet Estimate NORMAL Platelet Morphology Comment NORMAL Ovalocytes 1+ Activated Partial Thromboplast Time 44.9 SEC Blood Urea Nitrogen 19 MG/DL Creatinine 0.93 MG/DL Random Glucose 283 MG/DL Total Protein 6.4 GM/DL Albumin 2.2 GM/DL Calcium Level 8.4 MG/DL Phosphorus Level 3.2 MG/DL Magnesium Level 2.0 MG/DL Alkaline Phosphatase 85 U/L Aspartate Amino Transf (AST/SGOT) 17 U/L Alanine Aminotransferase (ALT/SGPT) 19 U/L Total Bilirubin 0.3 MG/DL Sodium Level 137 MEQ/L Potassium Level 4.5 MEQ/L Chloride Level 101 MEQ/L Carbon Dioxide Level 28.9 MEQ/L Anion Gap 7 MEQ/L Estimat Glomerular Filtration Rate 83 ML/MIN B-Type Natriuretic Peptide 704 PG/ML Free Thyroxine 1.34 NG/DL Thyroid Stimulating Hormone 3rd Gen 2.420 uIU/ML Assessment and Plan Problem List: (1) ARF (acute renal failure) ICD Codes: N17.9 - Acute kidney failure, unspecified (2) NSTEMI (non-ST elevated myocardial infarction) ICD Codes: I21.4 - Non-ST elevation (NSTEMI) myocardial infarction (3) CAD (coronary artery disease) ICD Codes: I25.10 - Atherosclerotic heart disease of [place] coronary artery without angina pectoris (4) Decreased cardiac ejection fraction ICD Codes: R93.1 - Abnormal findings on diagnostic imaging of heart and coronary circulation (5) Elevated troponin ICD Codes: R74.8 - Abnormal levels of other serum enzymes (6) Severe sepsis ICD Codes: A41.9 - Sepsis, unspecified organism; R65.20 - Severe sepsis without septic shock (7) Diabetes mellitus ICD Codes: E11.9 - Type 2 diabetes mellitus without complications (8) Acute renal failure ICD Codes: N17.9 - Acute kidney failure, unspecified (9) Cardiomyopathy ICD Codes: I42.9 - Cardiomyopathy, unspecified (10) gangrene of the right second toe (11) Dyspnea and respiratory abnormalities ICD Codes: R06.00 - Dyspnea, unspecified; R06.89 - Other abnormalities of breathing (12) Multi-vessel coronary artery stenosis ICD Codes: I25.10 - Atherosclerotic heart disease of [place] coronary artery without angina pectoris (13) Hx of CABG ICD Codes: Z95.1 - Presence of aortocoronary bypass graft (14) Thrombocytopenia ICD Codes: D69.6 - Thrombocytopenia, unspecified Assessment and Plan 1.) Ischemic cardiomyopathy - nstemi, chf excacerbation and arf due to severe unrevascularizable cad, cardiomyopathy, on aspirin and heparin per hematology, on antibiotics, pod #1 2nd toe amputation, stable 2.) VT - replete electrolytes, on coreg; d/w case management further attempts to insure and obtain eligibility for referral to heart transplant center Garrett Henao MD August 21, 2017 19:13
[2017-08-21] MEDS ORDERED: PHARMACY ORDERED LAB ONE ×2 (21:45→23:00)
[2017-08-21] MEDS: INSULIN DETEMIR 100 UNITS/ML VIAL SQ SCH (22:19)
[2017-08-22] VITALS (24 sets, daily range): BP systolic 106–129; BP diastolic 57–64; PULSE 58–78; RESP 14–24; TEMP 98–99.1; O2SAT 92–97
[2017-08-22 00:04] LABS: ALBUMIN 2.2 GM/DL (3.4-5.0); AST (GOT) 9 U/L (15-37); BICARBONATE 22.4 MEQ/L (21.0-32.0); BLOOD UREA NITROGEN 17 MG/DL (7-18); CALCIUM 8.5 MG/DL (8.5-10.1); CHLORIDE 101 MEQ/L (98-107); CREATININE 0.83 MG/DL (0.60-1.30); GLOMERULAR FILTRATION RATE 95 ML/MIN (>89); GLUCOSE,RANDOM 299 MG/DL (74-106); SODIUM (NA) 134 MEQ/L (136-145)
[2017-08-22 00:05] LABS: ALT (GPT) 19 U/L (12-78); PHOSPHORUS 2.8 MG/DL (2.5-4.9)
[2017-08-22 00:08] LABS: ALKALINE PHOSPHATASE 84 U/L (45-117); TOTAL BILIRUBIN ADULT 0.3 MG/DL (0.2-1.0); TOTAL PROTEIN 6.5 GM/DL (6.4-8.2)
[2017-08-22] MEDS: ceFAZolin 2 GM PREMIX 50 ML IV SCH ×3 (01:06→17:17)
[2017-08-22] MEDS: GENTAMICIN INJ 90 MG in SODIUM CHLORIDE 0.9% INJ 100 ML IV SCH (06:16)
[2017-08-22] MEDS: ACETAMINOPHEN/HYDROcodone 325 MG/5 MG TAB PO PRN ×2 (06:35→12:50)
[2017-08-22 07:06] LABS: AUTOMATED NEUTROPHIL # 8.4 TH/MM3 (1.8-7.7); BASOPHIL # 0.1 TH/MM3 (0-0.2); BASOPHIL % 0.7 % (0.0-2.0); EOSINOPHIL # 0.2 TH/MM3 (0-0.4); EOSINOPHIL % 1.8 % (0.0-4.0); HEMATOCRIT 36.8 % (39.0-51.0); HEMOGLOBIN 12.5 GM/DL (13.0-17.0); LYMPH % 15.8 % (9.0-44.0); LYMPHOCYTE # 1.8 TH/MM3 (1.0-4.8); MEAN CELL VOLUME 81.7 FL (80.0-100.0); MEAN CORPUSCULAR HEMOGLOBIN 27.7 PG (27.0-34.0); MEAN CORPUSCULAR HGB CONC 33.9 % (32.0-36.0); MEAN PLATELET VOLUME 8.7 FL (7.0-11.0); MONO % 8.9 % (0.0-8.0); NEUT % 72.8 % (16.0-70.0); PLATELET COUNT 205 TH/MM3 (150-450); RED BLOOD COUNT 4.51 MIL/MM3 (4.50-5.90); RED CELL DISTRIBUTION WIDTH 17.2 % (11.6-17.2); WHITE BLOOD COUNT 11.5 TH/MM3 (4.0-11.0)
[2017-08-22 07:13] LABS: CREATININE 0.82 MG/DL (0.60-1.30)
--- NOTE | 2017-08-22 07:43 | HHI.IDPN ---
Subjective Subjective Remarks Patient seen and examined on behalf of Dr. Galan is a 57 y/o CM with PMHx of CHF, Ischemic Cardiomyopathy with last reported EF 20-25%, he has prior h/o CABG x 3, defibrillator and pacemaker, DM, HTN and hyperlipidemia. CT surgery evaluated and found him not to be a revascularization candidate and recommended referral to a tertiary center for transplant consideration. As the patient has no insurance this option has not been found feasible. He underwent placement of a single-chamber [place] ICD in May 2017 for sudden cardiac prevention. With this background patient presents to the ED at [facility] with 4 day history of progressive dyspnea described as severe, worsening with exertion, and improved with rest. He has had associated symptoms of diaphoresis, nausea and vomiting over the weekend. He additionally has noted painful changes in his right second toe with color changes suspicious for infection. In ED patient was noted to have WBC 9.6, hemoglobin 15.0, hematocrit 43.9, platelets 133, sodium 130, potassium 4.4, BUN 36, creatinine 1.84, random glucose 407 alkaline phosphatase 114, AST 37, ALT 25, total bilirubin 0.9, troponin 3.04, C-reactive protein 26.8, B natruretic peptide 3148, lactic acid 5.5. Ax Xray of Rt toe showed erosion. MRI with no osteomyelitis. Chest x-ray showed no acute abnormality or significant interval change. 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 He states that he is only able to be active for 5-10 minutes before becoming very dyspneic and exhausted. 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 He is now attempting to get disability as he has a nearly homebound existence and requires assistance to get out to doctor's appointments. Sepsis workup on admission positive for Staph bacteremia and ID consulted for evaluation and Mment of the same. Notes reviewed c/o nausea and headache +persistent abdominal pain but better since admission per patient report no fever no rash no dysuria - reports good UOP no diarrhea afebrile VSS S/P ICD placement May 2017 WBC 11.5 Repeat BCX pending Wound cx + staph Pathology pending Antibiotics IV Gent IV Ancef Teflaro IV Current Medications Medications (Trade) Dose Ordered Sig/Erika Route Start Time Stop Time Status Last Admin (NS Flush) 2 ml UNSCH PRN IVF 08/15/17 10:00 08/19/17 08:31 (D50w (Vial) Inj) 50 ml UNSCH PRN IV PUSH 08/15/17 13:30 (Glucagon Inj) 1 mg UNSCH PRN OTHER 08/15/17 13:30 (NovoLOG SUPPLEMENTAL SCALE) 1 ACHS SLIDING SCALE SQ 08/15/17 17:00 08/21/17 22:18 (Pravachol) 40 mg DAILY PO 08/16/17 09:00 08/21/17 08:09 (Duoneb Neb) 1 ampule Q4HR NEB PRN NEB 08/15/17 13:45 08/15/17 15:38 (Tylenol) 650 mg Q4H PRN PO 08/15/17 14:30 08/18/17 11:45 ([place] 5-325 Mg) 1 tab Q4H PRN PO 08/15/17 14:30 08/22/17 06:35 (Reglan Inj) 5 mg Q6H PRN IV PUSH 08/16/17 02:30 08/16/17 20:10 (Zofran Odt) 4 mg Q6H PRN PO 08/16/17 02:30 08/19/17 11:50 (Lopressor Inj) 5 mg Q5M PRN IV PUSH 08/16/17 02:45 08/16/17 03:06 (Levemir Inj) 10 units HS SQ 08/16/17 21:00 08/21/17 22:19 (Tessalon) 100 mg TID PRN PO 08/17/17 03:00 08/20/17 02:00 (Robitussin Ac 200-20 Mg/10 ml Liq) 10 ml Q6H PRN PO 08/17/17 03:00 (Coreg) 6.25 mg Q12HR PO 08/17/17 11:30 08/21/17 22:19 (Entresto 49-51 Mg) 1 tab BID PO 08/17/17 21:00 08/21/17 22:19 Cefazolin Sodium/ Dextrose 50 ml @ 100 mls/hr Q8H IV 08/18/17 09:00 08/22/17 01:06 (Aspirin Chew) 81 mg DAILY CHEW 08/19/17 12:10 08/21/17 08:09 Pharmacy Profile Note 0 ml @ 0 mls/hr UNSCH OTHER 08/19/17 11:15 Heparin Sodium/ Dextrose 250 ml @ 16.128 mls/ hr TITRATE PRN IV 08/19/17 12:30 08/21/17 22:35 Gentamicin Sulfate 90 mg/ Sodium Chloride 102.25 ml @ 200 mls/ hr Q8H IV 08/19/17 14:00 08/22/17 06:16 Sodium Chloride 1,000 ml @ 100 mls/hr Q10H IV 08/20/17 11:15 Future Hold 08/21/17 10:17 (Protonix) 40 mg DAILY PO 08/21/17 09:00 08/21/17 08:09 Lines PIV no evidence of infection Past Medical History Severe ischemic cardiomyopathy EF 20-25% Hyperlipidemia Diabetes Coronary artery disease status post LA 06/04 COPD Past Surgical History CABG 10 years ago Pacemaker/Defibrillator insertion Appendectomy Skin graft to right foot as a child Back surgeries 3 has hardware in back per report. (Damaris Drummond) Allergies: Coded Allergies: potassium iodide (Unverified Allergy, Severe, Swelling, 06/12/17) povidone-iodine (Unverified Allergy, Severe, Swelling, 06/12/17) shellfish derived (Unverified Allergy, Severe, 06/12/17) sodium iodide (Unverified Allergy, Severe, Swelling, 06/12/17) sodium iodide (Unverified Allergy, Severe, Swelling, 06/12/17) Objective . Vital Signs Date Time Temp Pulse Resp B/P (MAP) Pulse Ox O2 Delivery O2 Flow Rate FiO2 08/22/17 06:00 78 08/22/17 05:00 65 08/22/17 04:00 67 08/22/17 03:42 98.0 66 24 109/57 (74) 95 08/22/17 03:00 68 08/22/17 02:00 71 08/22/17 01:00 71 08/22/17 00:00 72 08/21/17 23:32 98.9 77 20 121/63 (82) 96 08/21/17 23:00 73 08/21/17 22:00 77 08/21/17 21:00 98.3 74 20 122/69 (86) 96 08/21/17 21:00 75 08/21/17 20:00 74 08/21/17 19:37 98 21 08/21/17 19:00 75 08/21/17 18:00 74 08/21/17 17:00 66 08/21/17 16:00 78 08/21/17 15:30 98.2 68 14 151/64 (93) 97 08/21/17 15:00 75 08/21/17 14:00 78 08/21/17 13:00 68 08/21/17 12:23 98.4 65 15 118/63 (81) 94 08/21/17 12:00 68 08/21/17 11:00 74 08/21/17 10:00 75 08/21/17 09:00 72 08/21/17 08:20 98.6 73 14 129/71 (90) 96 08/21/17 08:00 64 . Laboratory Tests Test 08/21/17 02:50 08/22/17 06:05 White Blood Count 10.9 TH/MM3 11.5 TH/MM3 Red Blood Count 4.64 MIL/MM3 4.51 MIL/MM3 Hemoglobin 12.7 GM/DL 12.5 GM/DL Hematocrit 37.7 % 36.8 % Mean Corpuscular Volume 81.1 FL 81.7 FL Mean Corpuscular Hemoglobin 27.4 PG 27.7 PG Mean Corpuscular Hemoglobin Concent 33.8 % 33.9 % Red Cell Distribution Width 17.2 % 17.2 % Platelet Count 172 TH/MM3 205 TH/MM3 Mean Platelet Volume 9.0 FL 8.7 FL Neutrophils (%) (Auto) 70.4 % 72.8 % Lymphocytes (%) (Auto) 17.3 % 15.8 % Monocytes (%) (Auto) 10.3 % 8.9 % Eosinophils (%) (Auto) 1.5 % 1.8 % Basophils (%) (Auto) 0.5 % 0.7 % Neutrophils # (Auto) 7.6 TH/MM3 8.4 TH/MM3 Lymphocytes # (Auto) 1.9 TH/MM3 1.8 TH/MM3 Monocytes # (Auto) 1.1 TH/MM3 1.0 TH/MM3 Eosinophils # (Auto) 0.2 TH/MM3 0.2 TH/MM3 Basophils # (Auto) 0.1 TH/MM3 0.1 TH/MM3 CBC Comment AUTO DIFF AUTO DIFF Differential Total Cells Counted 100 Neutrophils % (Manual) 71 % Band Neutrophils % 3 % Lymphocytes % 13 % Monocytes % 9 % Eosinophils % 2 % Neutrophils # (Manual) 8.3 TH/MM3 Metamyelocytes 2 % Differential Comment FINAL DIFF MANUAL Toxic Granulation 1+ Platelet Estimate NORMAL Platelet Morphology Comment NORMAL Ovalocytes 1+ Laboratory Tests Test 08/21/17 02:50 08/21/17 23:27 08/22/17 06:05 Blood Urea Nitrogen 19 MG/DL 17 MG/DL Creatinine 0.93 MG/DL 0.83 MG/DL 0.82 MG/DL Random Glucose 283 MG/DL 299 MG/DL Total Protein 6.4 GM/DL 6.5 GM/DL Albumin 2.2 GM/DL 2.2 GM/DL Calcium Level 8.4 MG/DL 8.5 MG/DL Phosphorus Level 3.2 MG/DL 2.8 MG/DL Magnesium Level 2.0 MG/DL 2.0 MG/DL Alkaline Phosphatase 85 U/L 84 U/L Aspartate Amino Transf (AST/SGOT) 17 U/L 9 U/L Alanine Aminotransferase (ALT/SGPT) 19 U/L 19 U/L Total Bilirubin 0.3 MG/DL 0.3 MG/DL Sodium Level 137 MEQ/L 134 MEQ/L Potassium Level 4.5 MEQ/L 4.6 MEQ/L Chloride Level 101 MEQ/L 101 MEQ/L Carbon Dioxide Level 28.9 MEQ/L 22.4 MEQ/L Anion Gap 7 MEQ/L 11 MEQ/L Estimat Glomerular Filtration Rate 83 ML/MIN 95 ML/MIN 96 ML/MIN Hemoglobin A1c 9.8 % B-Type Natriuretic Peptide 704 PG/ML Free Thyroxine 1.34 NG/DL Thyroid Stimulating Hormone 3rd Gen 2.420 uIU/ML Microbiology Date/Time Source Procedure Growth Status 08/21/17 02:50 Blood Peripheral Aerobic Blood Culture Pending Received 08/21/17 02:50 Blood Peripheral Anaerobic Blood Culture Pending Received 08/21/17 01:43 Blood Peripheral Aerobic Blood Culture Pending Received 08/21/17 01:43 Blood Peripheral Anaerobic Blood Culture Pending Received 08/20/17 16:24 Wound Toe Fungal Smear - Final NO FUNGAL ELEMENTS SEEN. Resulted 08/20/17 16:24 Wound Toe Fungal Culture Pending Resulted 08/20/17 16:24 Wound Toe Acid Fast Stain Pending Received 08/20/17 16:24 Wound Toe Mycobacterial Culture Pending Received 08/20/17 16:24 Wound Toe Gram Stain - Final Resulted 08/20/17 16:24 Wound Culture - Preliminary Staphylococcus Aureus Resulted Imaging Last Impressions Aorta w/Runoff CTA 08/19/17 0000 Signed Impressions: CONCLUSION: 1. Atherosclerotic changes without significant stenosis bilateral lower extrem ities. Chest X-Ray 08/15/17 0955 Signed Impressions: CONCLUSION: 1. No acute abnormality or significant interval change. Toe X-Ray 08/15/17 0000 Signed Impressions: CONCLUSION: Questionable small erosion distal phalanx right second toe. This could be infec tious in nature if there is clinical evidence for soft tissue infection. Renal Ultrasound 08/15/17 Signed Impressions: CONCLUSION: 1. No hydronephrosis. 2. Increased echogenicity most characteristic of medical renal disease. Foot MRI 08/15/17 Signed Impressions: CONCLUSION: 1. No evidence for osteomyelitis. Soft tissue swelling at the second toe. Physical Exam GENERAL: WDWN male patient, INAD. Awake and alert. Appears comfortable. SKIN: No rashes or lesions. Cool and dry. HEAD: Atraumatic. Normocephalic. EYES: Pupils equal round and reactive. Extraocular motions intact. No scleral icterus. No injection or drainage. ENT: Nose without bleeding or purulent drainage. Airway patent. MMM. NECK: Trachea midline. Supple, nontender, no meningeal signs. CARDIOVASCULAR: HS audible. ICD, has mild pink color on his L chest, not indurated, seems swollen, not tender, has well healed incision RESPIRATORY: Nonlabored. Clear to auscultation. Breath sounds equal bilaterally. No wheezes, rales, or rhonchi. GASTROINTESTINAL: Abdomen soft, +mildly distended, diffusely tender to palpation. MUSCULOSKELETAL: No BLE edema appreciated. Right foot in postop dressing and boot, able to wiggles toes slightly on right foot. Decreased sensation but able to feel light touch on toes. NEUROLOGICAL: Grossly non-focal. Psych calm and cooperative IV line sites with no e.o infection. (Damaris Drummond) Assessment & Plan Remarks Sepsis High grade MSSA bacteremia - source ?2nd toe, concern with ICD Right 2nd toe wet gangrene, osteomyelitis. Hepatitis C antibody positive. AICD status. CAD with severe ischemic cardiomyopathy. Thrombocytopenia likely due to severe infection, ?DIC Recs Continue IV Ancef Continue Genta IV for synergy pending BCX turning negative and source control. Follow cultures until finalized Follow path Follow clinically. Will need IV antibiotics on discharge. (Damaris Drummond) Remarks The exam, history, and the medical decision-making described in the above note were completed with the assistance of the mid-level provider. I reviewed and agree with the findings presented. I attest that I had a [id number] encounter with the patient on the same day, and personally performed and documented my assessment and findings in the medical record. Patient seen and examined. No fevers No rash No diarrhea CTA BL. Foot still in post op dressing.Dried old blood. Recs Continue ancef IV Discontinue genta IV Will need 6 weeks IV Ancef irrespective of bone path due to high grade bacteremia and AICD in place. No PICC till cleared by ID. (Michelle Galan MD) Damaris Drummond August 22, 2017 07:43 Michelle Galan MD August 22, 2017 15:09
[2017-08-22] MEDS: INSULIN ASPART SUPPLEMENTAL SCALE SQ SCH ×4 (08:00→22:58)
[2017-08-22] MEDS: PRAVASTATIN SOD 40 MG TAB PO SCH (08:18)
[2017-08-22] MEDS: SACUBITRIL/VALSARTAN 49 MG-51 MG TAB PO SCH ×2 (08:18→22:57)
[2017-08-22] MEDS: PANTOPRAZOLE SOD 40 MG DELAYED RELEASE TAB PO SCH (08:18)
[2017-08-22] MEDS: ASPIRIN 81 MG CHEW TAB CHEW SCH (08:18)
[2017-08-22] MEDS: CARVEDILOL 6.25 MG TAB PO SCH ×2 (08:18→22:57)
[2017-08-22 10:34] LABS: BANDS 2 % (0-6); LYMPHOCYTES 9 % (9-44); MONOCYTES 7 % (0-8); NEUTROPHIL # MANUAL DIFF 9.4 TH/MM3 (1.8-7.7); PLASMA CELLS 1 % (0-0); POLYS (SEG NEUTROPHILS) 80 % (16-70)
[2017-08-22 10:35] LABS: OVALOCYTES 1+ (NORMAL)
--- NOTE | 2017-08-22 11:02 | HHI.PR ---
Subjective Remarks 08-20 Patient is scheduled to have right second toe amputated due to gangrene and osteomyelitis today Has some hypotension we will give some fluids since patient is n.p.o. Discussed with patient and RN Kenyon. labs 08-21 HAD 2ND RIGHT TOE AMPUTATION ON AUGUST 20 NO NEW COMPLAINTS DW RN AND PT AND CM 08-22 ANTIBIOTICS PER INFECTIOUS DISEASE DW RN AND PT AND FAMILY AT BEDSIDE WOUND CARE PER PODIATRY AM LABS Objective Vitals Vital Signs Date Time Temp Pulse Resp B/P (MAP) Pulse Ox O2 Delivery O2 Flow Rate FiO2 08/22/17 10:00 60 08/22/17 09:00 68 08/22/17 08:10 98.4 64 14 106/64 (78) 92 08/22/17 08:06 94 08/22/17 08:00 64 08/22/17 07:38 20 08/22/17 07:00 67 08/22/17 06:00 78 08/22/17 05:00 65 08/22/17 04:00 67 08/22/17 03:42 98.0 66 24 109/57 (74) 95 08/22/17 03:00 68 08/22/17 02:00 71 08/22/17 01:00 71 08/22/17 00:00 72 08/21/17 23:32 98.9 77 20 121/63 (82) 96 08/21/17 23:00 73 08/21/17 22:00 77 08/21/17 21:00 98.3 74 20 122/69 (86) 96 08/21/17 21:00 75 08/21/17 20:00 74 08/21/17 19:37 98 21 08/21/17 19:00 75 08/21/17 18:00 74 08/21/17 17:00 66 08/21/17 16:00 78 08/21/17 15:30 98.2 68 14 151/64 (93) 97 08/21/17 15:00 75 08/21/17 14:00 78 08/21/17 13:00 68 08/21/17 12:23 98.4 65 15 118/63 (81) 94 08/21/17 12:00 68 08/21/17 11:00 74 I/O 08/21/17 08/21/17 08/21/17 08/22/1708/22/18 5/31/18 07:00 15:00 23:00 07:00 15:00 23:00 Intake Total 342.25 ml 1300 ml 530 ml 150 ml Output Total 1475 ml 1800 ml 2500 ml Balance -1132.75 ml -500 ml -1970 ml 150 ml Intake Oral 240 ml 1200 ml 480 ml IV Total 102.25 ml 100 ml 50 ml 150 ml Output Urine Total 1475 ml 1800 ml 2500 ml Result Diagram: 08/22/17 0608/22/17 06 Other Results Laboratory Tests Test 08/19/17 14:25 08/19/17 18:47 08/20/17 03:23 08/20/17 10:15 White Blood Count 12.1 TH/MM3 11.3 TH/MM3 Red Blood Count 5.36 MIL/MM3 4.95 MIL/MM3 Hemoglobin 14.6 GM/DL 13.4 GM/DL Hematocrit 43.6 % 39.5 % Mean Corpuscular Volume 81.3 FL 79.8 FL Mean Corpuscular Hemoglobin 27.3 PG 27.1 PG Mean Corpuscular Hemoglobin Concent 33.6 % 34.0 % Red Cell Distribution Width 17.5 % 17.1 % Platelet Count 102 TH/MM3 98 TH/MM3 Mean Platelet Volume 10.1 FL 9.4 FL Prothrombin Time 11.4 SEC Prothromb Time International Ratio 1.1 RATIO Activated Partial Thromboplast Time 24.1 SEC 32.2 SEC 37.3 SEC 42.0 SEC Neutrophils (%) (Auto) 64.6 % Lymphocytes (%) (Auto) 19.1 % Monocytes (%) (Auto) 13.3 % Eosinophils (%) (Auto) 1.7 % Basophils (%) (Auto) 1.3 % Neutrophils # (Auto) 7.3 TH/MM3 Lymphocytes # (Auto) 2.2 TH/MM3 Monocytes # (Auto) 1.5 TH/MM3 Eosinophils # (Auto) 0.2 TH/MM3 Basophils # (Auto) 0.2 TH/MM3 CBC Comment DIFF FINAL Differential Comment Creatinine 0.73 MG/DL Estimat Glomerular Filtration Rate 110 ML/MIN Test 08/20/17 14:27 08/20/17 18:09 08/20/17 21:31 08/21/17 02:50 Gentamicin Level Trough 0.7 MCG/ML Activated Partial Thromboplast Time 39.5 SEC 44.9 SEC Gentamicin Level Peak 1.1 MCG/ML White Blood Count 10.9 TH/MM3 Red Blood Count 4.64 MIL/MM3 Hemoglobin 12.7 GM/DL Hematocrit 37.7 % Mean Corpuscular Volume 81.1 FL Mean Corpuscular Hemoglobin 27.4 PG Mean Corpuscular Hemoglobin Concent 33.8 % Red Cell Distribution Width 17.2 % Platelet Count 172 TH/MM3 Mean Platelet Volume 9.0 FL Neutrophils (%) (Auto) 70.4 % Lymphocytes (%) (Auto) 17.3 % Monocytes (%) (Auto) 10.3 % Eosinophils (%) (Auto) 1.5 % Basophils (%) (Auto) 0.5 % Neutrophils # (Auto) 7.6 TH/MM3 Lymphocytes # (Auto) 1.9 TH/MM3 Monocytes # (Auto) 1.1 TH/MM3 Eosinophils # (Auto) 0.2 TH/MM3 Basophils # (Auto) 0.1 TH/MM3 CBC Comment AUTO DIFF Differential Total Cells Counted 100 Neutrophils % (Manual) 71 % Band Neutrophils % 3 % Lymphocytes % 13 % Monocytes % 9 % Eosinophils % 2 % Neutrophils # (Manual) 8.3 TH/MM3 Metamyelocytes 2 % Differential Comment FINAL DIFF MANUAL Toxic Granulation 1+ Platelet Estimate NORMAL Platelet Morphology Comment NORMAL Ovalocytes 1+ Blood Urea Nitrogen 19 MG/DL Creatinine 0.93 MG/DL Random Glucose 283 MG/DL Total Protein 6.4 GM/DL Albumin 2.2 GM/DL Calcium Level 8.4 MG/DL Phosphorus Level 3.2 MG/DL Magnesium Level 2.0 MG/DL Alkaline Phosphatase 85 U/L Aspartate Amino Transf (AST/SGOT) 17 U/L Alanine Aminotransferase (ALT/SGPT) 19 U/L Total Bilirubin 0.3 MG/DL Sodium Level 137 MEQ/L Potassium Level 4.5 MEQ/L Chloride Level 101 MEQ/L Carbon Dioxide Level 28.9 MEQ/L Anion Gap 7 MEQ/L Estimat Glomerular Filtration Rate 83 ML/MIN Hemoglobin A1c 9.8 % B-Type Natriuretic Peptide 704 PG/ML Free Thyroxine 1.34 NG/DL Thyroid Stimulating Hormone 3rd Gen 2.420 uIU/ML Test 08/21/17 21:45 08/21/17 23:27 08/22/17 06:05 Gentamicin Level Trough 1.0 MCG/ML Blood Urea Nitrogen 17 MG/DL Creatinine 0.83 MG/DL 0.82 MG/DL Random Glucose 299 MG/DL Total Protein 6.5 GM/DL Albumin 2.2 GM/DL Calcium Level 8.5 MG/DL Phosphorus Level 2.8 MG/DL Magnesium Level 2.0 MG/DL Alkaline Phosphatase 84 U/L Aspartate Amino Transf (AST/SGOT) 9 U/L Alanine Aminotransferase (ALT/SGPT) 19 U/L Total Bilirubin 0.3 MG/DL Sodium Level 134 MEQ/L Potassium Level 4.6 MEQ/L Chloride Level 101 MEQ/L Carbon Dioxide Level 22.4 MEQ/L Anion Gap 11 MEQ/L Estimat Glomerular Filtration Rate 95 ML/MIN 96 ML/MIN Gentamicin Level Peak 4.6 MCG/ML White Blood Count 11.5 TH/MM3 Red Blood Count 4.51 MIL/MM3 Hemoglobin 12.5 GM/DL Hematocrit 36.8 % Mean Corpuscular Volume 81.7 FL Mean Corpuscular Hemoglobin 27.7 PG Mean Corpuscular Hemoglobin Concent 33.9 % Red Cell Distribution Width 17.2 % Platelet Count 205 TH/MM3 Mean Platelet Volume 8.7 FL Neutrophils (%) (Auto) 72.8 % Lymphocytes (%) (Auto) 15.8 % Monocytes (%) (Auto) 8.9 % Eosinophils (%) (Auto) 1.8 % Basophils (%) (Auto) 0.7 % Neutrophils # (Auto) 8.4 TH/MM3 Lymphocytes # (Auto) 1.8 TH/MM3 Monocytes # (Auto) 1.0 TH/MM3 Eosinophils # (Auto) 0.2 TH/MM3 Basophils # (Auto) 0.1 TH/MM3 CBC Comment AUTO DIFF Differential Total Cells Counted 100 Neutrophils % (Manual) 80 % Band Neutrophils % 2 % Lymphocytes % 9 % Monocytes % 7 % Eosinophils % 1 % Neutrophils # (Manual) 9.4 TH/MM3 Differential Comment FINAL DIFF MANUAL Plasma Cells 1 % Platelet Estimate NORMAL Platelet Morphology Comment NORMAL Ovalocytes 1+ Activated Partial Thromboplast Time 53.7 SEC Imaging Last Impressions Aorta w/Runoff CTA 08/19/17 0000 Signed Impressions: CONCLUSION: 1. Atherosclerotic changes without significant stenosis bilateral lower extrem ities. Chest X-Ray 08/15/17 0955 Signed Impressions: CONCLUSION: 1. No acute abnormality or significant interval change. Toe X-Ray 08/15/17 0000 Signed Impressions: CONCLUSION: Questionable small erosion distal phalanx right second toe. This could be infec tious in nature if there is clinical evidence for soft tissue infection. Renal Ultrasound 08/15/17 Signed Impressions: CONCLUSION: 1. No hydronephrosis. 2. Increased echogenicity most characteristic of medical renal disease. Foot MRI 08/15/17 Signed Impressions: CONCLUSION: 1. No evidence for osteomyelitis. Soft tissue swelling at the second toe. Objective Remarks GENERAL: Awake alert and oriented 3 talkative and cooperative SKIN: Warm and dry. Right second toe is AMPUTATED--FOOT IS DRESSED HEAD: Atraumatic. Normocephalic. EYES: Pupils equal and round. No scleral icterus. No injection or drainage. extraocular muscles intact ENT: No nasal bleeding or discharge. Mucous membranes pink and moist. Tongue is midline NECK: Trachea midline. No JVD. Supple CARDIOVASCULAR: Regular rate and rhythm. S1-S2 no S3 or S4 RESPIRATORY: No accessory muscle use. Clear to auscultation. Breath sounds equal bilaterally. GASTROINTESTINAL: Abdomen soft, non-tender, nondistended. Hepatic and splenic margins not palpable. MUSCULOSKELETAL: Extremities without clubbing, cyanosis, or edema. No obvious deformities. Right second toe is AMPUTATED- FOOT IS DRESSED NEUROLOGICAL: Awake and alert. No obvious cranial nerve deficits. Motor grossly within normal limits. Five out of 5 muscle strength in the arms and legs. Normal speech. PSYCHIATRIC: Appropriate mood and affect; insight and judgment normal. Procedures August 20, 2017 Pre Op Diagnosis: gangrene with osteomyelitis right 2nd toe Post Op Diagnosis: same Surgeon: Ron Goldman DPM Stave Inspector(s): Staff Procedure: amputation right 2nd toe Findings: Consistent with diagnosis. Right 2nd toe with necrotic tissue to entire digit. Foul odor slightly present. Margins clean without purulence. Two semi-elliptical incisions made to disarticulate digit in its entirety at metatarsophalangeal joint level. 2nd metatarsal head with white healthy cartilage cap. No purulence noted. Culture taken prior to irrigation and primary closure with 2-0 nylon suture. Dressing with xeroform, 4x4, cast padding, livia. Weightbearing as tolerated to heel in surgical shoe for transfers only. Additional Information: see findings Complications: none Specimen(s) removed: 1. toe right 2nd 2. culture right foot Estimated blood loss: minimal Anesthesia: MAC, Local (10mL 2% lidocaine plain) Drains: None Tourniquet time (min at mmHg) n/a Patient to: PACU Patient Condition: Good Date/Time of Procedure: SEE SURGICAL CARE RECORD Ron Goldman DPAnnmarie Medications and IVs Current Medications Sodium Chloride (NS Flush) 2 ml UNSCH PRN IVF FLUSH AFTER USING IV ACCESS Last administered on 08/19/17 08:31; Start 08/15/17 at 10:00 Piperacillin Sod/ Tazobactam Sod 50 ml @ 100 mls/hr ONCE ONCE IV Last administered on 08/15/17at 12:07; Start 08/15/17 at 11:30; Stop 08/15/17 at 11:59 ; Status DC Vancomycin HCl 1350 mg/Sodium Chloride 513.5 ml @ 250 mls/hr ONCE ONCE IV Last administered on 08/15/17at 13:27; Start 08/15/17 at 11:30; Stop 08/15/17 at 13:33; Status DC Aspirin (Aspirin Chew) 162 mg ONCE ONCE CHEW Last administered on 08/15/17at 12 :02; Start 08/15/17 at 11:30; Stop 08/15/17 at 11:31; Status DC Heparin Sodium (Porcine) (Heparin Inj) 4,000 units ONCE ONCE IV PUSH Last administered on 08/15/17at 12:03; Start 08/15/17 at 11:45; Stop 08/15/17 at 11:46 ; Status DC Heparin Sodium/ Dextrose 250 ml @ 10 mls/hr TITRATE PRN IV Coagulation Management Last administered on 08/16/17at 16:19; Start 08/15/17 at 11:45; Stop 08/20/17 at 21:48; Status DC Dextrose (D50w (Vial) Inj) 50 ml UNSCH PRN IV PUSH HYPOGLYCEMIA-SEE COMMENTS; Start 08/15/17 at 13:30 Glucagon (Glucagon Inj) 1 mg UNSCH PRN OTHER HYPOGLYCEMIA-SEE COMMENTS; Start 08/15/17 at 13:30 Insulin Aspart (NovoLOG SUPPLEMENTAL SCALE) 1 ACHS SLIDING SCALE SQ Last administered on 08/22/17at 08:00; Start 08/15/17 at 17:00 Sodium Chloride 1,000 ml @ 60 mls/hr [id number] IV Last administered on at 18:23; Start 08/15/17 at 13:30; Stop 08/18/17 at 10:00; Status DC Piperacillin Sod/ Tazobactam Sod 50 ml @ 100 mls/hr Q6H IV Last administered on 08/17/17at 17:02; Start 08/15/17 at 18:00; Stop 08/18/17 at 09:02; Status DC Pharmacy Profile Note 0 ml @ 0 mls/hr UNSCH OTHER ; Start 08/15/17 at 13:30; Stop 08/17/17 at 11:26; Status DC Aspirin (Ecotrin Ec) 162 mg DAILY PO Last administered on 08/17/17at 09:05; Start 08/16/17 at 09:00; Stop 08/19/17 at 12:04; Status DC Famotidine (Pepcid) 20 mg BID PO Last administered on 08/18/17at 08:52; Start at 21:00; Stop 08/18/17 at 10:16; Status DC Pravastatin Sodium (Pravachol) 40 mg DAILY PO Last administered on 08/22/17at 08 :18; Start 08/16/17 at 09:00 Albuterol/ Ipratropium (Duoneb Neb) 1 ampule Q4HR NEB PRN NEB SHORTNESS OF BREATH Last administered on 08/15/17at 15:38; Start 08/15/17 at 13:45 Vancomycin HCl 1500 mg/Sodium Chloride 515 ml @ 250 mls/hr Q24H IV Last administered on 08/16/17at 14:18; Start 08/16/17 at 14:00; Stop 08/16/17 at 16:40 ; Status DC Acetaminophen (Tylenol) 650 mg Q4H PRN PO FEVER/PAIN 1-5 Last administered on at 11:45; Start 08/15/17 at 14:30 Acetaminophen/ Hydrocodone Bitart ([place] 5-325 Mg) 1 tab Q4H PRN PO PAIN 6-10 Last administered on 08/22/17at 06:35; Start 08/15/17 at 14:30 Gadobenate Dimeglumine (Multihance Pf Inj) 18 ml STK-MED ONCE IV Last administered on 08/15/17at 17:21; Start 08/15/17 at 17:21; Stop 08/15/17 at 17:22 ; Status DC Metoclopramide HCl (Reglan Inj) 10 mg ONCE ONCE IV PUSH Last administered on at 02:05; Start 08/16/17 at 02:15; Stop 08/16/17 at 02:16; Status DC Metoclopramide HCl (Reglan Inj) 5 mg Q6H PRN IV PUSH NAUSEA OR VOMITING Last administered on 08/16/17at 20:10; Start 08/16/17 at 02:30 Ondansetron HCl (Zofran Odt) 4 mg Q6H PRN PO NAUSEA OR VOMITING Last administered on 08/19/17at 11:50; Start 08/16/17 at 02:30 Metoprolol Tartrate (Lopressor Inj) 5 mg ONCE ONCE IV PUSH Last administered on 08/16/17at 02:39; Start 08/16/17 at 02:45; Stop 08/16/17 at 02:46; Status DC Metoprolol Tartrate (Lopressor Inj) 5 mg Q5M PRN IV PUSH ATRIAL FLUTTER Last administered on 08/16/17at 03:06; Start 08/16/17 at 02:45 Miscellaneous Information ([facility] Ordered [facility] Info) SPECIFIC LAB TO BE SHERRON..Andrew ONCE ONCE .XX ; Start 08/18/17 at 12:45; Stop 08/18/17 at 12:46; Status Cancel Insulin Detemir (Levemir Inj) 10 units HS SQ Last administered on 08/21/17at 22: 19; Start 08/16/17 at 21:00 Vancomycin HCl 1000 mg/Sodium Chloride 250 ml @ 250 mls/hr Q12H IV Last administered on 08/17/17at 01:06; Start 08/17/17 at 02:00; Stop 08/17/17 at 11:26 ; Status DC Miscellaneous Information ([facility] Ordered [facility] Info) SPECIFIC LAB TO BE SHERRONMarco ONCE ONCE .XX ; Start 08/18/17 at 13:45; Stop 08/18/17 at 13:46; Status DC Benzonatate (Tessalon) 100 mg TID PRN PO COUGH Last administered on 08/20/17at 02:00; Start 08/17/17 at 03:00 Guaifenesin/ Codeine Phosphate (Robitussin Ac 200-20 Mg/10 ml Liq) 10 ml Q6H PRN PO COUGH; Start 08/17/17 at 03:00 Magnesium Sulfate/ Dextrose 100 ml @ 100 mls/hr Q1H IV Last administered on at 09:45; Start 08/17/17 at 08:45; Stop 08/17/17 at 10:44; Status DC Cefazolin Sodium/ Dextrose 50 ml @ 100 mls/hr Q8H IV Last administered on 08/17at 21:32; Start 08/17/17 at 13:00; Stop 08/17/17 at 23:30; Status DC Carvedilol (Coreg) 6.25 mg Q12HR PO Last administered on 08/22/17at 08:18; Start 08/17/17 at 11:30 Sacubitril/ Valsartan (Entresto 49-51 Mg) 1 tab BID PO Last administered on at 08:18; Start 08/17/17 at 21:00 Cefepime HCl 1000 mg/Sodium Chloride 100 ml @ 200 mls/hr Q8H IV Last administered on 08/18/17at 08:49; Start 08/18/17 at 00:00; Stop 08/18/17 at 09:01 ; Status DC Piperacillin Sod/ Tazobactam Sod 50 ml @ 100 mls/hr Q6H IV Last administered on 08/19/17at 10:00; Start 08/18/17 at 10:00; Stop 08/19/17 at 11:16; Status DC Cefazolin Sodium/ Dextrose 50 ml @ 100 mls/hr Q8H IV Last administered on 08/22at 08:17; Start 08/18/17 at 09:00 Aspirin (Aspirin Chew) 81 mg DAILY CHEW Last administered on 08/22/17at 08:18; Start 08/19/17 at 12:10 Pharmacy Profile Note 0 ml @ 0 mls/hr UNSCH OTHER ; Start 08/19/17 at 11:15 Heparin Sodium/ Dextrose 250 ml @ 16.128 mls/ hr TITRATE PRN IV Coagulation Management Last administered on 08/21/17at 22:35; Start 08/19/17 at 12:30 Gentamicin Sulfate 90 mg/ Sodium Chloride 102.25 ml @ 200 mls/ hr Q8H IV Last administered on 08/22/17at 06:16; Start 08/19/17 at 14:00 Miscellaneous Information ([facility] Ordered [facility] Info) SPECIFIC LAB TO BE SHERRON... ONCE ONCE .XX ; Start 08/20/17 at 13:45; Stop 08/20/17 at 13:46; Status DC Miscellaneous Information ([facility] Ordered Lab Info) SPECIFIC LAB TO BE SHERRON... ONCE ONCE .XX Last administered on 08/20/17at 15:00; Start 08/20/17 at 15:00; Stop 08/20/17 at 15:01; Status DC Iohexol (Omnipaque 350 Inj) 100 ml STK-MED ONCE IVCONTRAST Last administered on 08/19/17at 13:57; Start 08/19/17 at 13:57; Stop 08/19/17 at 13:58; Status DC Sodium Chloride 1,000 ml @ 100 mls/hr Q10H IV Last administered on 08/21/17at 10:17; Start 08/20/17 at 11:15; Status Future Hold Pantoprazole Sodium (Protonix Inj) 40 mg ONCE ONCE IV PUSH Last administered on 08/20/17at 12:55; Start 08/20/17 at 12:45; Stop 08/20/17 at 12:50; Status DC Pantoprazole Sodium (Protonix) 40 mg DAILY PO Last administered on 08/22/17at 08 :18; Start 08/21/17 at 09:00 Ketamine HCl (Ketalar Inj) 50 mg STK-MED ONCE .ROUTE ; Start 08/20/17 at 15:41; Stop 08/20/17 at 15:42; Status DC Lidocaine HCl (Xylocaine-Mpf 2% Inj) 20 ml STK-MED ONCE .ROUTE Last administered on 08/20/17at 16:28; Start 08/20/17 at 16:24; Stop 08/20/17 at 16:25 ; Status DC Midazolam HCl (Versed Inj) 2 mg STK-MED ONCE .ROUTE ; Start 08/20/17 at 17:16; Stop 08/20/17 at 17:17; Status DC Miscellaneous Information ([facility]) ALL NURSING DEPARTME... UNSCH PRN .XX SEE LABEL COMMENTS; Start 08/20/17 at 17:07; Stop 08/21/17 at 17: 06; Status DC Miscellaneous Information ([facility] Ordered Lab Info) SPECIFIC LAB TO BE DRAWN:GENTAMICIN TROUGH DATE TO... ONCE ONCE .XX Last administered on at 21:45; Start 08/21/17 at 21:45; Stop 08/21/17 at 21:46; Status DC Miscellaneous Information ([facility] Ordered Lab Info) SPECIFIC LAB TO BE DRAWN:GENTAMICIN PEAK DATE TO... ONCE ONCE .XX Last administered on 08/21/17at 23:25; Start 08/21/17 at 23:00; Stop 08/21/17 at 23:01; Status DC A/P Problem List: (1) Severe sepsis ICD Code: A41.9 - Sepsis, unspecified organism; R65.20 - Severe sepsis without septic shock (2) Elevated troponin ICD Code: R74.8 - Abnormal levels of other serum enzymes (3) gangrene of the right second toe Assessment and Plan Severe sepsis due to gangrene/ infection of the right second toe Staph aureus bacteremia-- persistent bacteremia- check echo- may need CARA ID [id number] - on zosyn and Ancef Repeat BC to document clearing in next few days May need CARA Podiatry following Vascular surgery ff- requested for CTA runoff- DONE FOR SURGERY ON RIGHT 2ND TOE 08-20 WITH PODIATRY August 20, 2017 Pre Op Diagnosis: gangrene with osteomyelitis right 2nd toe Surgeon: Ron Goldman DPAnnmarie Procedure: amputation right 2nd toe Findings: Consistent with diagnosis. Right 2nd toe with necrotic tissue to entire digit. Foul odor slightly present. Margins clean without purulence. Two semi-elliptical incisions made to disarticulate digit in its entirety at metatarsophalangeal joint level. 2nd metatarsal head with white healthy cartilage cap. No purulence noted. Culture taken prior to irrigation and primary closure with 2-0 nylon suture. Dressing with xeroform, 4x4, cast padding, livia. Weightbearing as tolerated to heel in surgical shoe for transfers only. Specimen(s) removed: 1. toe right 2nd 2. culture right foot Ischemic cardiomyopathy EF 25% - nstemi, Debrillator fired evening 5.25 NSTEMI with history of CAD- had cardiac cath two months ago with severe three vessel disease- was evaluated by CT surgery at the time with poor targets for redo sternotomy high metabolic demand from sepsis - clinically feeling better - continue electrolyte monitoring - ASA, Heparin drip- DC due to thrombocytopenia- Hematology consutled for recommendation - continue Entresto, Coreg - will start ASA Acute kidney injury; improved- started on gentle IV hydration in light of cardiomyopathy- monitor renal function -thrombocytopenia- likely due to sepsis - continue ASA - FF CBC -seen by Dr. Jones. HIT ab negative- restart heparin drip- will d/w Dr. Jones - will also DC Pepcid- due to thrombocytopenia Diabetes mellitus- sliding scale -COPD with no exacerbation; neb treatment as needed. -diabetes mellitus; uncontrolled- hold oral hypoglycemics- start on accu-check with SSI. continue Levemir and adjust -DVT prophylaxis;encoruage increase activity palliative care ff CM ff - assisting with transfer to a tertiary center for transplant-- no insurance, assisting us with Medicaid application CONTINUE ANTIBIOTICS PER ID Discharge Planning PENDING ID CLEARANCE Lavelle Patricia DO August 22, 2017 11:02
[2017-08-22] MEDS: HEPARIN-D5W 25,000 U/250 ML 250 ML IV PRN (12:00)
--- NOTE | 2017-08-22 12:20 | RADRPT ---
EXAM DATE: 08/16/2017 11:08 AM EDT AGE/SEX: 57 years / Male INDICATIONS: Severe Sepsis, Elevated Troponin CLINICAL DATA: This is the patient's initial encounter. Patient reports that signs and symptoms have been present for 3 days and indicates a pain score of 7/10. MEDICAL/SURGICAL HISTORY: . CHF, Diabetes, hx of FL, Defribrillator, hx of CAGB . CABG X3, Def ib placement, Appendectomy, Skin graft to right foot as a child, Back surgery X3 COMPARISON: No prior [place] exams available for comparison. TECHNIQUE: Five-station segmental examination of the lower extremities was performed. Pulsed-cuff wa veform tracings and pressures were recorded. Ankle-brachial indices and toe-brachial indices were tayler culated. PRESSURES (mmHg): Brachial (arm) : RIGHT: IV SITE, LEFT: 103 Lower Thigh : RIGHT: 112, LEFT: 113 Calf : RIGHT: 100, LEFT: 74 Ankle : RIGHT: 92, LEFT: 93 Toe : RIGHT: 58, LEFT: 24 ISSAC : RIGHT: 0.89, LEFT: 0.90 TBI : RIGHT: 0.56, LEFT: 0.23 RIGHT: , LEFT: PULSED CUFF WAVEFORMS: Demonstrate significantly dampened amplitude in the left toe and mildly decre ased amplitude in the left ankle. There is a sufficient systolic gradient across the left thigh and in the left foot. CONCLUSION: 1. Findings consistent with left outflow disease as well as small vessel disease in the left foot. 2. Near normal range right ankle-brachial indices and segmental pressures. Electronically signed by: Norman Barba MD 08/16/2017 11:17 AM EDT
--- NOTE | 2017-08-22 14:15 | PD.CARD.PN ---
Subjective Subjective Remarks appears comfortable in nad Objective Medications Current Medications Medications (Trade) Dose Ordered Sig/Erika Route Start Time Stop Time Status Last Admin (NS Flush) 2 ml UNSCH PRN IVF 08/15/17 10:00 08/19/17 08:31 (D50w (Vial) Inj) 50 ml UNSCH PRN IV PUSH 08/15/17 13:30 (Glucagon Inj) 1 mg UNSCH PRN OTHER 08/15/17 13:30 (NovoLOG SUPPLEMENTAL SCALE) 1 ACHS SLIDING SCALE SQ 08/15/17 17:00 08/22/17 12:00 (Pravachol) 40 mg DAILY PO 08/16/17 09:00 08/22/17 08:18 (Duoneb Neb) 1 ampule Q4HR NEB PRN NEB 08/15/17 13:45 08/15/17 15:38 (Tylenol) 650 mg Q4H PRN PO 08/15/17 14:30 08/18/17 11:45 ([place] 5-325 Mg) 1 tab Q4H PRN PO 08/15/17 14:30 08/22/17 12:50 (Reglan Inj) 5 mg Q6H PRN IV PUSH 08/16/17 02:30 08/16/17 20:10 (Zofran Odt) 4 mg Q6H PRN PO 08/16/17 02:30 08/19/17 11:50 (Lopressor Inj) 5 mg Q5M PRN IV PUSH 08/16/17 02:45 08/16/17 03:06 (Levemir Inj) 10 units HS SQ 08/16/17 21:00 08/21/17 22:19 (Tessalon) 100 mg TID PRN PO 08/17/17 03:00 08/20/17 02:00 (Robitussin Ac 200-20 Mg/10 ml Liq) 10 ml Q6H PRN PO 08/17/17 03:00 (Coreg) 6.25 mg Q12HR PO 08/17/17 11:30 08/22/17 08:18 (Entresto 49-51 Mg) 1 tab BID PO 08/17/17 21:00 08/22/17 08:18 Cefazolin Sodium/ Dextrose 50 ml @ 100 mls/hr Q8H IV 5/27/18 09:00 08/22/17 08:17 (Aspirin Chew) 81 mg DAILY CHEW 08/19/17 12:10 08/22/17 08:18 Pharmacy Profile Note 0 ml @ 0 mls/hr UNSCH OTHER 08/19/17 11:15 Heparin Sodium/ Dextrose 250 ml @ 16.128 mls/ hr TITRATE PRN IV 08/19/17 12:30 08/21/17 22:35 Gentamicin Sulfate 90 mg/ Sodium Chloride 102.25 ml @ 200 mls/ hr Q8H IV 08/19/17 14:00 08/22/17 06:16 Sodium Chloride 1,000 ml @ 100 mls/hr Q10H IV 08/20/17 11:15 Future Hold 08/21/17 10:17 (Protonix) 40 mg DAILY PO 08/21/17 09:00 08/22/17 08:18 Vital Signs / I&O Vital Signs Date Time Temp Pulse Resp B/P (MAP) Pulse Ox O2 Delivery O2 Flow Rate FiO2 08/22/17 11:50 98.1 59 16 129/64 (85) 97 08/22/17 10:00 60 08/22/17 09:00 68 08/22/17 08:10 98.4 64 14 106/64 (78) 92 08/22/17 08:06 94 08/22/17 08:00 64 08/22/17 07:38 20 08/22/17 07:00 67 08/22/17 06:00 78 08/22/17 05:00 65 08/22/17 04:00 67 08/22/17 03:42 98.0 66 24 109/57 (74) 95 08/22/17 03:00 68 08/22/17 02:00 71 08/22/17 01:00 71 08/22/17 00:00 72 08/21/17 23:32 98.9 77 20 121/63 (82) 96 08/21/17 23:00 73 08/21/17 22:00 77 08/21/17 21:00 98.3 74 20 122/69 (86) 96 08/21/17 21:00 75 08/21/17 20:00 74 08/21/17 19:37 98 21 08/21/17 19:00 75 08/21/17 18:00 74 08/21/17 17:00 66 08/21/17 16:00 78 08/21/17 15:30 98.2 68 14 151/64 (93) 97 08/21/17 15:00 75 I/O 08/21/17 08/21/17 08/21/17 08/22/17 08/22/17 08/22/17 06:59 14:59 22:59 06:59 14:59 22:59 Intake Total 342.25 ml 1300 ml 530 ml 150 ml Output Total 1475 ml 1800 ml 2500 ml Balance -1132.75 ml -500 ml -1970 ml 150 ml Intake Oral 240 ml 1200 ml 480 ml IV Total 102.25 ml 100 ml 50 ml 150 ml Output Urine Total 1475 ml 1800 ml 2500 ml Physical Exam GENERAL: SKIN: Warm and dry. HEAD: Normocephalic. EYES: No scleral icterus. No injection or drainage. NECK: Supple, trachea midline. No JVD or lymphadenopathy. CARDIOVASCULAR: Regular rate and rhythm without murmurs, gallops, or rubs. RESPIRATORY: Breath sounds equal bilaterally. No accessory muscle use. GASTROINTESTINAL: Abdomen soft, non-tender, nondistended. MUSCULOSKELETAL: No cyanosis, or edema. BACK: Nontender without obvious deformity. No CVA tenderness. Laboratory Laboratory Tests Test 08/21/17 21:45 08/21/17 23:27 08/22/17 06:05 Gentamicin Level Trough 1.0 MCG/ML Blood Urea Nitrogen 17 MG/DL Creatinine 0.83 MG/DL 0.82 MG/DL Random Glucose 299 MG/DL Total Protein 6.5 GM/DL Albumin 2.2 GM/DL Calcium Level 8.5 MG/DL Phosphorus Level 2.8 MG/DL Magnesium Level 2.0 MG/DL Alkaline Phosphatase 84 U/L Aspartate Amino Transf (AST/SGOT) 9 U/L Alanine Aminotransferase (ALT/SGPT) 19 U/L Total Bilirubin 0.3 MG/DL Sodium Level 134 MEQ/L Potassium Level 4.6 MEQ/L Chloride Level 101 MEQ/L Carbon Dioxide Level 22.4 MEQ/L Anion Gap 11 MEQ/L Estimat Glomerular Filtration Rate 95 ML/MIN 96 ML/MIN Gentamicin Level Peak 4.6 MCG/ML White Blood Count 11.5 TH/MM3 Red Blood Count 4.51 MIL/MM3 Hemoglobin 12.5 GM/DL Hematocrit 36.8 % Mean Corpuscular Volume 81.7 FL Mean Corpuscular Hemoglobin 27.7 PG Mean Corpuscular Hemoglobin Concent 33.9 % Red Cell Distribution Width 17.2 % Platelet Count 205 TH/MM3 Mean Platelet Volume 8.7 FL Neutrophils (%) (Auto) 72.8 % Lymphocytes (%) (Auto) 15.8 % Monocytes (%) (Auto) 8.9 % Eosinophils (%) (Auto) 1.8 % Basophils (%) (Auto) 0.7 % Neutrophils # (Auto) 8.4 TH/MM3 Lymphocytes # (Auto) 1.8 TH/MM3 Monocytes # (Auto) 1.0 TH/MM3 Eosinophils # (Auto) 0.2 TH/MM3 Basophils # (Auto) 0.1 TH/MM3 CBC Comment AUTO DIFF Differential Total Cells Counted 100 Neutrophils % (Manual) 80 % Band Neutrophils % 2 % Lymphocytes % 9 % Monocytes % 7 % Eosinophils % 1 % Neutrophils # (Manual) 9.4 TH/MM3 Differential Comment FINAL DIFF MANUAL Plasma Cells 1 % Platelet Estimate NORMAL Platelet Morphology Comment NORMAL Ovalocytes 1+ Activated Partial Thromboplast Time 53.7 SEC Assessment and Plan Problem List: (1) ARF (acute renal failure) ICD Codes: N17.9 - Acute kidney failure, unspecified (2) NSTEMI (non-ST elevated myocardial infarction) ICD Codes: I21.4 - Non-ST elevation (NSTEMI) myocardial infarction (3) CAD (coronary artery disease) ICD Codes: I25.10 - Atherosclerotic heart disease of [place] coronary artery without angina pectoris (4) Decreased cardiac ejection fraction ICD Codes: R93.1 - Abnormal findings on diagnostic imaging of heart and coronary circulation (5) Elevated troponin ICD Codes: R74.8 - Abnormal levels of other serum enzymes (6) Severe sepsis ICD Codes: A41.9 - Sepsis, unspecified organism; R65.20 - Severe sepsis without septic shock (7) Diabetes mellitus ICD Codes: E11.9 - Type 2 diabetes mellitus without complications (8) Acute renal failure ICD Codes: N17.9 - Acute kidney failure, unspecified (9) Cardiomyopathy ICD Codes: I42.9 - Cardiomyopathy, unspecified (10) gangrene of the right second toe (11) Dyspnea and respiratory abnormalities ICD Codes: R06.00 - Dyspnea, unspecified; R06.89 - Other abnormalities of breathing (12) Multi-vessel coronary artery stenosis ICD Codes: I25.10 - Atherosclerotic heart disease of [place] coronary artery without angina pectoris (13) Hx of CABG ICD Codes: Z95.1 - Presence of aortocoronary bypass graft (14) Thrombocytopenia ICD Codes: D69.6 - Thrombocytopenia, unspecified Assessment and Plan 1.) Ischemic cardiomyopathy - nstemi, chf excacerbation and arf due to severe unrevascularizable cad, cardiomyopathy, on aspirin and heparin per hematology, on antibiotics, pod #2, 2nd toe amputation, stable 2.) VT - replete electrolytes, on coreg; d/w case management further attempts to insure and obtain eligibility for referral to heart transplant center Garrett Henao MD August 22, 2017 14:15
--- NOTE | 2017-08-22 21:17 | PD.POD ---
Subjective Podiatric Problems Gangrene right 2nd toe Pain score: 0 Past Med/Surg/Social History Social History Smoking Status: Former Smoker Objective Vital Signs Vital Signs Date Time Temp Pulse Resp B/P (MAP) Pulse Ox O2 Delivery O2 Flow Rate FiO2 08/22/17 18:00 74 08/22/17 17:00 60 08/22/17 16:00 62 08/22/17 15:00 61 08/22/17 15:00 98.5 60 18 112/60 (77) 96 08/22/17 14:00 64 08/22/17 13:00 68 08/22/17 12:00 58 08/22/17 11:50 98.1 59 16 129/64 (85) 97 08/22/17 11:00 60 08/22/17 10:00 60 08/22/17 09:00 68 08/22/17 08:10 98.4 64 14 106/64 (78) 92 08/22/17 08:06 94 08/22/17 08:00 64 08/22/17 07:38 20 08/22/17 07:00 67 08/22/17 06:00 78 08/22/17 05:00 65 08/22/17 04:00 67 08/22/17 03:42 98.0 66 24 109/57 (74) 95 08/22/17 03:00 68 08/22/17 02:00 71 08/22/17 01:00 71 08/22/17 00:00 72 08/21/17 23:32 98.9 77 20 121/63 (82) 96 08/21/17 23:00 73 08/21/17 22:00 77 Coded Allergies: potassium iodide (Unverified Allergy, Severe, Swelling, 06/12/17) povidone-iodine (Unverified Allergy, Severe, Swelling, 06/12/17) shellfish derived (Unverified Allergy, Severe, 06/12/17) sodium iodide (Unverified Allergy, Severe, Swelling, 06/12/17) sodium iodide (Unverified Allergy, Severe, Swelling, 06/12/17) Exam-Podiatry Remarks Right foot incision to amputation site well approximated with nylon suture. No active drainage. No sign of infection. Assessment & Plan A/P Gangrene right 2nd toe, s/p amputation R 2nd toe 08/20/17 Dr Goldman Changed bandage today. Keep clean, dry, intact Orders for nursing to change every 5 days with dry sterile dressing Weightbearing as tolerated in surgical shoe right foot. OK to remove shoe when in bed. Follow up in clinic 1 week after discharge for bandage change. Keep bandage upon discharge intact until then. Ron Goldman DPM August 22, 2017 21:17
[2017-08-22] MEDS: INSULIN DETEMIR 100 UNITS/ML VIAL SQ SCH (22:58)
[2017-08-23] VITALS (18 sets, daily range): BP systolic 98–126; BP diastolic 57–88; PULSE 66–79; RESP 16–20; TEMP 98.1–98.8; O2SAT 93–98
[2017-08-23] MEDS: ceFAZolin 2 GM PREMIX 50 ML IV SCH ×3 (01:17→16:48)
--- NOTE | 2017-08-23 06:47 | HHI.IDPN ---
Subjective Subjective Remarks Patient seen and examined on behalf of Dr. Galan is a 57 y/o CM with PMHx of CHF, Ischemic Cardiomyopathy with last reported EF 20-25%, he has prior h/o CABG x 3, defibrillator and pacemaker, DM, HTN and hyperlipidemia. CT surgery evaluated and found him not to be a revascularization candidate and recommended referral to a tertiary center for transplant consideration. As the patient has no insurance this option has not been found feasible. He underwent placement of a single-chamber [place] ICD in May 2017 for sudden cardiac prevention. With this background patient presents to the ED at [facility] with 4 day history of progressive dyspnea described as severe, worsening with exertion, and improved with rest. He has had associated symptoms of diaphoresis, nausea and vomiting over the weekend. He additionally has noted painful changes in his right second toe with color changes suspicious for infection. In ED patient was noted to have WBC 9.6, hemoglobin 15.0, hematocrit 43.9, platelets 133, sodium 130, potassium 4.4, BUN 36, creatinine 1.84, random glucose 407 alkaline phosphatase 114, AST 37, ALT 25, total bilirubin 0.9, troponin 3.04, C-reactive protein 26.8, B natruretic peptide 3148, lactic acid 5.5. Ax Xray of Rt toe showed erosion. MRI with no osteomyelitis. Chest x-ray showed no acute abnormality or significant interval change. 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 He states that he is only able to be active for 5-10 minutes before becoming very dyspneic and exhausted. 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 He is now attempting to get disability as he has a nearly homebound existence and requires assistance to get out to doctor's appointments. Sepsis workup on admission positive for Staph bacteremia and ID consulted for evaluation and Mment of the same. Notes reviewed patient denies any new medical complaints no fever no rash no N/V no abd pain no dysuria no diarrhea afebrile VSS S/P ICD placement May 2017 WBC 11.5 08/22, todays WBC pending Repeat BCX neg x 1 day Wound cx + staph Pathology pending Antibiotics IV Ancef Current Medications Medications (Trade) Dose Ordered Sig/Erika Route Start Time Stop Time Status Last Admin (NS Flush) 2 ml UNSCH PRN IVF 08/15/17 10:00 08/19/17 08:31 (D50w (Vial) Inj) 50 ml UNSCH PRN IV PUSH 08/15/17 13:30 (Glucagon Inj) 1 mg UNSCH PRN OTHER 08/15/17 13:30 (NovoLOG SUPPLEMENTAL SCALE) 1 ACHS SLIDING SCALE SQ 08/15/17 17:00 08/22/17 22:58 (Pravachol) 40 mg DAILY PO 08/16/17 09:00 08/22/17 08:18 (Duoneb Neb) 1 ampule Q4HR NEB PRN NEB 08/15/17 13:45 08/15/17 15:38 (Tylenol) 650 mg Q4H PRN PO 08/15/17 14:30 08/18/17 11:45 ([place] 5-325 Mg) 1 tab Q4H PRN PO 08/15/17 14:30 08/22/17 12:50 (Reglan Inj) 5 mg Q6H PRN IV PUSH 08/16/17 02:30 08/16/17 20:10 (Zofran Odt) 4 mg Q6H PRN PO 08/16/17 02:30 08/19/17 11:50 (Lopressor Inj) 5 mg Q5M PRN IV PUSH 08/16/17 02:45 08/16/17 03:06 (Levemir Inj) 10 units HS SQ 08/16/17 21:00 08/22/17 22:58 (Tessalon) 100 mg TID PRN PO 08/17/17 03:00 08/20/17 02:00 (Robitussin Ac 200-20 Mg/10 ml Liq) 10 ml Q6H PRN PO 08/17/17 03:00 (Coreg) 6.25 mg Q12HR PO 08/17/17 11:30 08/22/17 22:57 (Entresto 49-51 Mg) 1 tab BID PO 08/17/17 21:00 08/22/17 22:57 Cefazolin Sodium/ Dextrose 50 ml @ 100 mls/hr Q8H IV 08/18/17 09:00 08/23/17 01:17 (Aspirin Chew) 81 mg DAILY CHEW 08/19/17 12:10 08/22/17 08:18 Heparin Sodium/ Dextrose 250 ml @ 16.128 mls/ hr TITRATE PRN IV 08/19/17 12:30 08/22/17 12:00 Sodium Chloride 1,000 ml @ 100 mls/hr Q10H IV 08/20/17 11:15 Future Hold 08/21/17 10:17 (Protonix) 40 mg DAILY PO 08/21/17 09:00 08/22/17 08:18 Lines PIV no evidence of infection Past Medical History Severe ischemic cardiomyopathy EF 20-25% Hyperlipidemia Diabetes Coronary artery disease status post [facility] 06/04 COPD Past Surgical History CABG 10 years ago Pacemaker/Defibrillator insertion Appendectomy Skin graft to right foot as a child Back surgeries 3 has hardware in back per report. (Damaris Drummond) Allergies: Coded Allergies: potassium iodide (Unverified Allergy, Severe, Swelling, 06/12/17) povidone-iodine (Unverified Allergy, Severe, Swelling, 06/12/17) shellfish derived (Unverified Allergy, Severe, 06/12/17) sodium iodide (Unverified Allergy, Severe, Swelling, 06/12/17) sodium iodide (Unverified Allergy, Severe, Swelling, 06/12/17) Objective . Vital Signs Date Time Temp Pulse Resp B/P (MAP) Pulse Ox O2 Delivery O2 Flow Rate FiO2 08/22/17 18:00 74 08/22/17 17:00 60 08/22/17 16:00 62 08/22/17 15:00 61 08/22/17 15:00 98.5 60 18 112/60 (77) 96 08/22/17 14:00 64 08/22/17 13:00 68 08/22/17 12:00 58 08/22/17 11:50 98.1 59 16 129/64 (85) 97 08/22/17 11:00 60 08/22/17 10:00 60 08/22/17 09:00 68 08/22/17 08:10 98.4 64 14 106/64 (78) 92 08/22/17 08:06 94 08/22/17 08:00 64 08/22/17 07:38 20 08/22/17 07:00 67 . Laboratory Tests Test 08/22/17 06:05 08/23/17 05:19 White Blood Count 11.5 TH/MM3 Red Blood Count 4.51 MIL/MM3 Hemoglobin 12.5 GM/DL Hematocrit 36.8 % Mean Corpuscular Volume 81.7 FL Mean Corpuscular Hemoglobin 27.7 PG Mean Corpuscular Hemoglobin Concent 33.9 % Red Cell Distribution Width 17.2 % Platelet Count 205 TH/MM3 Mean Platelet Volume 8.7 FL Neutrophils (%) (Auto) 72.8 % Lymphocytes (%) (Auto) 15.8 % Monocytes (%) (Auto) 8.9 % Eosinophils (%) (Auto) 1.8 % Basophils (%) (Auto) 0.7 % Neutrophils # (Auto) 8.4 TH/MM3 Lymphocytes # (Auto) 1.8 TH/MM3 Monocytes # (Auto) 1.0 TH/MM3 Eosinophils # (Auto) 0.2 TH/MM3 Basophils # (Auto) 0.1 TH/MM3 CBC Comment AUTO DIFF Differential Total Cells Counted 100 Neutrophils % (Manual) 80 % Band Neutrophils % 2 % Lymphocytes % 9 % Monocytes % 7 % Eosinophils % 1 % Neutrophils # (Manual) 9.4 TH/MM3 Differential Comment FINAL DIFF MANUAL Plasma Cells 1 % Platelet Estimate NORMAL Platelet Morphology Comment NORMAL Ovalocytes 1+ Laboratory Tests Test 08/21/17 23:27 08/22/17 06:05 08/23/17 05:19 Blood Urea Nitrogen 17 MG/DL Creatinine 0.83 MG/DL 0.82 MG/DL Random Glucose 299 MG/DL Total Protein 6.5 GM/DL Albumin 2.2 GM/DL Calcium Level 8.5 MG/DL Phosphorus Level 2.8 MG/DL Magnesium Level 2.0 MG/DL Alkaline Phosphatase 84 U/L Aspartate Amino Transf (AST/SGOT) 9 U/L Alanine Aminotransferase (ALT/SGPT) 19 U/L Total Bilirubin 0.3 MG/DL Sodium Level 134 MEQ/L Potassium Level 4.6 MEQ/L Chloride Level 101 MEQ/L Carbon Dioxide Level 22.4 MEQ/L Anion Gap 11 MEQ/L Estimat Glomerular Filtration Rate 95 ML/MIN 96 ML/MIN Microbiology Date/Time Source Procedure Growth Status 08/21/17 02:50 Blood Peripheral Aerobic Blood Culture - Preliminary NO GROWTH IN 1 DAY Resulted 08/21/17 02:50 Blood Peripheral Anaerobic Blood Culture - Preliminary NO GROWTH IN 1 DAY Resulted 08/21/17 01:43 Blood Peripheral Aerobic Blood Culture - Preliminary NO GROWTH IN 1 DAY Resulted 08/21/17 01:43 Blood Peripheral Anaerobic Blood Culture - Final QNS - SEE AEROBE REPORT Resulted 08/20/17 16:24 Wound Toe Fungal Smear - Final NO FUNGAL ELEMENTS SEEN. Resulted 08/20/17 16:24 Wound Toe Fungal Culture Pending Resulted 08/20/17 16:24 Wound Toe Acid Fast Stain - Final NO ACID FAST BACILLI SEEN Resulted 08/20/17 16:24 Wound Toe Mycobacterial Culture Pending Resulted 08/20/17 16:24 Wound Toe Gram Stain - Final Complete 08/20/17 16:24 Wound Culture - Final Staphylococcus Aureus Complete Imaging Last Impressions Aorta w/Runoff CTA 08/19/17 0000 Signed Impressions: CONCLUSION: 1. Atherosclerotic changes without significant stenosis bilateral lower extrem ities. Chest X-Ray 08/15/17 0955 Signed Impressions: CONCLUSION: 1. No acute abnormality or significant interval change. Toe X-Ray 08/15/17 Signed Impressions: CONCLUSION: Questionable small erosion distal phalanx right second toe. This could be infec tious in nature if there is clinical evidence for soft tissue infection. Renal Ultrasound 08/15/17 Signed Impressions: CONCLUSION: 1. No hydronephrosis. 2. Increased echogenicity most characteristic of medical renal disease. Foot MRI 08/15/17 Signed Impressions: CONCLUSION: 1. No evidence for osteomyelitis. Soft tissue swelling at the second toe. Extremity Arterial Study 08/15/17 Signed Impressions: CONCLUSION: 1. Findings consistent with left outflow disease as well as small vessel disea se in the left foot. 2. Near normal range right ankle-brachial indices and segmental pressures. Physical Exam GENERAL: WDWN male patient, INAD. Asleep but easily awakens to voice. Appears comfortable. SKIN: No rashes or lesions. Warm and dry. HEAD: Atraumatic. Normocephalic. EYES: Pupils equal round and reactive. Extraocular motions intact. No scleral icterus. No injection or drainage. ENT: Nose without bleeding or purulent drainage. Airway patent. MMM. NECK: Trachea midline. Supple, nontender, no meningeal signs. CARDIOVASCULAR: HS audible. + ICD. RESPIRATORY: Nonlabored. Clear to auscultation. Breath sounds equal bilaterally. No wheezes, rales, or rhonchi. GASTROINTESTINAL: Abdomen soft, nontender to palpation. MUSCULOSKELETAL: No BLE edema appreciated. Right foot dressed, C/D/I, able to wiggles toes slightly on right foot. Decreased sensation but able to feel light touch on toes. NEUROLOGICAL: Awake and alert. Able to move all extremities spontaneously. Grossly non-focal. Normal speech. Psych calm and cooperative IV line sites with no e.o infection. (Damaris Drummond) Assessment & Plan Remarks Sepsis High grade MSSA bacteremia - source ?2nd toe, concern with ICD Right 2nd toe wet gangrene, osteomyelitis. Hepatitis C antibody positive. AICD status. CAD with severe ischemic cardiomyopathy. Thrombocytopenia likely due to severe infection Recs Continue IV Ancef Follow cultures until finalized Follow path Follow clinically Will need 6 weeks IV Ancef irrespective of bone path due to high grade bacteremia and AICD in place. No PICC till cleared by ID. (Damaris Drummond) Remarks The exam, history, and the medical decision-making described in the above note were completed with the assistance of the mid-level provider. I reviewed and agree with the findings presented. I attest that I had a [id number] encounter with the patient on the same day, and personally performed and documented my assessment and findings in the medical record. Complains of shortness of breath. Denies any chest pain. No fevers No rash No diarrhea Decreased AE BL. Occ creps Recs CXR today possible due to excess fluid from multiple antibiotics. Consider gentle diuresis if e/o fluid overload on CXR and clinically. Continue Ancef IV Follow Cr was on Genta and may receive lasix if need be. Follow clinically. Expect discharge early next week hopefully SON CLINE RN (Michelle Galan MD) Damaris Drummond Aug 23, 2017 06:47 Michelle Galan MD Aug 23, 2017 12:53
[2017-08-23 06:55] LABS: AUTOMATED NEUTROPHIL # 9.2 TH/MM3 (1.8-7.7); BASOPHIL # 0.1 TH/MM3 (0-0.2); BASOPHIL % 0.6 % (0.0-2.0); EOSINOPHIL # 0.1 TH/MM3 (0-0.4); EOSINOPHIL % 1.1 % (0.0-4.0); HEMATOCRIT 36.8 % (39.0-51.0); HEMOGLOBIN 12.5 GM/DL (13.0-17.0); LYMPH % 15.7 % (9.0-44.0); LYMPHOCYTE # 1.9 TH/MM3 (1.0-4.8); MEAN CELL VOLUME 80.7 FL (80.0-100.0); MEAN CORPUSCULAR HEMOGLOBIN 27.4 PG (27.0-34.0); MEAN PLATELET VOLUME 9.4 FL (7.0-11.0); MONO % 7.9 % (0.0-8.0); NEUT % 74.7 % (16.0-70.0); PLATELET COUNT 243 TH/MM3 (150-450); RED BLOOD COUNT 4.56 MIL/MM3 (4.50-5.90); RED CELL DISTRIBUTION WIDTH 17.1 % (11.6-17.2); WHITE BLOOD COUNT 12.3 TH/MM3 (4.0-11.0)
[2017-08-23 07:13] LABS: ALBUMIN 2.3 GM/DL (3.4-5.0); AST (GOT) 11 U/L (15-37); BICARBONATE 25.8 MEQ/L (21.0-32.0); BLOOD UREA NITROGEN 18 MG/DL (7-18); CHLORIDE 98 MEQ/L (98-107); CREATININE 0.88 MG/DL (0.60-1.30); GLOMERULAR FILTRATION RATE 89 ML/MIN (>89); GLUCOSE,RANDOM 236 MG/DL (74-106); MAGNESIUM 2.1 MG/DL (1.5-2.5); SODIUM (NA) 133 MEQ/L (136-145)
[2017-08-23 07:18] LABS: ALKALINE PHOSPHATASE 84 U/L (45-117); ALT (GPT) 19 U/L (12-78); PHOSPHORUS 3.7 MG/DL (2.5-4.9); TOTAL BILIRUBIN ADULT 0.4 MG/DL (0.2-1.0)
[2017-08-23] MEDS: INSULIN ASPART SUPPLEMENTAL SCALE SQ SCH ×4 (08:00→20:25)
[2017-08-23] MEDS: SACUBITRIL/VALSARTAN 49 MG-51 MG TAB PO SCH ×2 (09:46→20:15)
[2017-08-23] MEDS: CARVEDILOL 6.25 MG TAB PO SCH ×2 (09:46→20:15)
[2017-08-23] MEDS: ASPIRIN 81 MG CHEW TAB CHEW SCH (09:47)
[2017-08-23] MEDS: PANTOPRAZOLE SOD 40 MG DELAYED RELEASE TAB PO SCH (09:47)
[2017-08-23] MEDS: PRAVASTATIN SOD 40 MG TAB PO SCH (09:47)
--- NOTE | 2017-08-23 10:48 | PD.CARD.PN ---
Subjective Subjective Remarks appears comfortable in nad Objective Medications Current Medications Medications (Trade) Dose Ordered Sig/Erika Route Start Time Stop Time Status Last Admin (NS Flush) 2 ml UNSCH PRN IVF 08/15/17 10:00 08/19/17 08:31 (D50w (Vial) Inj) 50 ml UNSCH PRN IV PUSH 08/15/17 13:30 (Glucagon Inj) 1 mg UNSCH PRN OTHER 08/15/17 13:30 (NovoLOG SUPPLEMENTAL SCALE) 1 ACHS SLIDING SCALE SQ 08/15/17 17:00 08/23/17 08:00 (Pravachol) 40 mg DAILY PO 08/16/17 09:00 08/23/17 09:47 (Duoneb Neb) 1 ampule Q4HR NEB PRN NEB 08/15/17 13:45 08/15/17 15:38 (Tylenol) 650 mg Q4H PRN PO 08/15/17 14:30 08/18/17 11:45 ([place] 5-325 Mg) 1 tab Q4H PRN PO 08/15/17 14:30 08/22/17 12:50 (Reglan Inj) 5 mg Q6H PRN IV PUSH 08/16/17 02:30 08/16/17 20:10 (Zofran Odt) 4 mg Q6H PRN PO 08/16/17 02:30 08/19/17 11:50 (Lopressor Inj) 5 mg Q5M PRN IV PUSH 08/16/17 02:45 08/16/17 03:06 (Levemir Inj) 10 units HS SQ 08/16/17 21:00 08/22/17 22:58 (Tessalon) 100 mg TID PRN PO 08/17/17 03:00 08/20/17 02:00 (Robitussin Ac 200-20 Mg/10 ml Liq) 10 ml Q6H PRN PO 08/17/17 03:00 (Coreg) 6.25 mg Q12HR PO 08/17/17 11:30 08/23/17 09:46 (Entresto 49-51 Mg) 1 tab BID PO 08/17/17 21:00 08/23/17 09:46 Cefazolin Sodium/ Dextrose 50 ml @ 100 mls/hr Q8H IV 5/27/18 09:00 08/23/17 09:46 (Aspirin Chew) 81 mg DAILY CHEW 08/19/17 12:10 08/23/17 09:47 Heparin Sodium/ Dextrose 250 ml @ 16.128 mls/ hr TITRATE PRN IV 08/19/17 12:30 08/22/17 12:00 Sodium Chloride 1,000 ml @ 100 mls/hr Q10H IV 08/20/17 11:15 Future Hold 08/21/17 10:17 (Protonix) 40 mg DAILY PO 08/21/17 09:00 08/23/17 09:47 Vital Signs / I&O Vital Signs Date Time Temp Pulse Resp B/P (MAP) Pulse Ox O2 Delivery O2 Flow Rate FiO2 08/23/17 08:00 98.7 73 16 106/78 (87) 98 08/23/17 07:00 78 08/23/17 04:00 75 08/23/17 00:00 98.6 77 18 103/57 (72) 96 08/22/17 21:00 73 08/22/17 21:00 99.1 78 16 115/64 (81) 95 08/22/17 18:00 74 08/22/17 17:00 60 08/22/17 16:00 62 08/22/17 15:00 61 08/22/17 15:00 98.5 60 18 112/60 (77) 96 08/22/17 14:00 64 08/22/17 13:00 68 08/22/17 12:00 58 08/22/17 11:50 98.1 59 16 129/64 (85) 97 08/22/17 11:00 60 I/O 08/22/17 08/22/17 08/22/17 08/23/17 08/23/17 08/23/17 07:00 15:00 23:00 07:00 15:00 23:00 Intake Total 530 ml 150 ml 960 ml 240 ml Output Total 2500 ml 1800 ml 1125 ml Balance -1970 ml 150 ml -840 ml -885 ml Intake Oral 480 ml 960 ml 240 ml IV Total 50 ml 150 ml Output Urine Total 2500 ml 1800 ml 1125 ml Physical Exam GENERAL: SKIN: Warm and dry. HEAD: Normocephalic. EYES: No scleral icterus. No injection or drainage. NECK: Supple, trachea midline. No JVD or lymphadenopathy. CARDIOVASCULAR: Regular rate and rhythm without murmurs, gallops, or rubs. RESPIRATORY: Breath sounds equal bilaterally. No accessory muscle use. GASTROINTESTINAL: Abdomen soft, non-tender, nondistended. MUSCULOSKELETAL: No cyanosis, or edema. BACK: Nontender without obvious deformity. No CVA tenderness. Laboratory Laboratory Tests Test 08/23/17 05:19 White Blood Count 12.3 TH/MM3 Red Blood Count 4.56 MIL/MM3 Hemoglobin 12.5 GM/DL Hematocrit 36.8 % Mean Corpuscular Volume 80.7 FL Mean Corpuscular Hemoglobin 27.4 PG Mean Corpuscular Hemoglobin Concent 34.0 % Red Cell Distribution Width 17.1 % Platelet Count 243 TH/MM3 Mean Platelet Volume 9.4 FL Neutrophils (%) (Auto) 74.7 % Lymphocytes (%) (Auto) 15.7 % Monocytes (%) (Auto) 7.9 % Eosinophils (%) (Auto) 1.1 % Basophils (%) (Auto) 0.6 % Neutrophils # (Auto) 9.2 TH/MM3 Lymphocytes # (Auto) 1.9 TH/MM3 Monocytes # (Auto) 1.0 TH/MM3 Eosinophils # (Auto) 0.1 TH/MM3 Basophils # (Auto) 0.1 TH/MM3 CBC Comment DIFF FINAL Differential Comment Blood Urea Nitrogen 18 MG/DL Creatinine 0.88 MG/DL Random Glucose 236 MG/DL Total Protein 7.0 GM/DL Albumin 2.3 GM/DL Calcium Level 9.0 MG/DL Phosphorus Level 3.7 MG/DL Magnesium Level 2.1 MG/DL Alkaline Phosphatase 84 U/L Aspartate Amino Transf (AST/SGOT) 11 U/L Alanine Aminotransferase (ALT/SGPT) 19 U/L Total Bilirubin 0.4 MG/DL Sodium Level 133 MEQ/L Potassium Level 5.1 MEQ/L Chloride Level 98 MEQ/L Carbon Dioxide Level 25.8 MEQ/L Anion Gap 9 MEQ/L Estimat Glomerular Filtration Rate 89 ML/MIN Assessment and Plan Problem List: (1) ARF (acute renal failure) ICD Codes: N17.9 - Acute kidney failure, unspecified (2) NSTEMI (non-ST elevated myocardial infarction) ICD Codes: I21.4 - Non-ST elevation (NSTEMI) myocardial infarction (3) CAD (coronary artery disease) ICD Codes: I25.10 - Atherosclerotic heart disease of [place] coronary artery without angina pectoris (4) Decreased cardiac ejection fraction ICD Codes: R93.1 - Abnormal findings on diagnostic imaging of heart and coronary circulation (5) Elevated troponin ICD Codes: R74.8 - Abnormal levels of other serum enzymes (6) Severe sepsis ICD Codes: A41.9 - Sepsis, unspecified organism; R65.20 - Severe sepsis without septic shock (7) Diabetes mellitus ICD Codes: E11.9 - Type 2 diabetes mellitus without complications (8) Acute renal failure ICD Codes: N17.9 - Acute kidney failure, unspecified (9) Cardiomyopathy ICD Codes: I42.9 - Cardiomyopathy, unspecified (10) gangrene of the right second toe (11) Dyspnea and respiratory abnormalities ICD Codes: R06.00 - Dyspnea, unspecified; R06.89 - Other abnormalities of breathing (12) Multi-vessel coronary artery stenosis ICD Codes: I25.10 - Atherosclerotic heart disease of [place] coronary artery without angina pectoris (13) Hx of CABG ICD Codes: Z95.1 - Presence of aortocoronary bypass graft (14) Thrombocytopenia ICD Codes: D69.6 - Thrombocytopenia, unspecified Assessment and Plan 1.) Ischemic cardiomyopathy - nstemi, chf excacerbation and arf due to severe unrevascularizable cad, cardiomyopathy, on aspirin and heparin per hematology, on antibiotics, pod # 3, 2nd toe amputation, stable; 2.) VT - replete electrolytes, on coreg; d/w case management further attempts to insure and obtain eligibility for referral to heart transplant center Garrett Henao MD Aug 23, 2017 10:48
--- NOTE | 2017-08-23 15:50 | HHI.PR ---
Subjective Remarks 08-20 Patient is scheduled to have right second toe amputated due to gangrene and osteomyelitis today Has some hypotension we will give some fluids since patient is n.p.o. Discussed with patient and ETHAN Prescott. labs 08-21 HAD 2ND RIGHT TOE AMPUTATION ON AUGUST 20 NO NEW COMPLAINTS DW RN AND PT AND CM 08-22 ANTIBIOTICS PER INFECTIOUS DISEASE DW RN AND PT AND FAMILY AT BEDSIDE WOUND CARE PER PODIATRY AM LABS 08-23 WILL NEED 6 WEEKS OF ANCEF TOTAL DW RN AND PT AND ID AND CM AM LABS Objective Vitals Vital Signs Date Time Temp Pulse Resp B/P (MAP) Pulse Ox O2 Delivery O2 Flow Rate FiO2 08/23/17 15:17 98.1 71 16 98/60 (73) 98 08/23/17 15:00 79 08/23/17 12:00 70 08/23/17 11:00 98.8 73 16 110/70 (83) 98 08/23/17 11:00 70 08/23/17 10:00 68 08/23/17 09:00 74 08/23/17 08:00 98.7 73 16 106/78 (87) 98 08/23/17 08:00 78 08/23/17 07:00 78 08/23/17 04:00 75 08/23/17 00:00 98.6 77 18 103/57 (72) 96 08/22/17 21:00 73 08/22/17 21:00 99.1 78 16 115/64 (81) 95 08/22/17 18:00 74 08/22/17 17:00 60 08/22/17 16:00 62 I/O 08/22/17 08/22/17 08/22/17 08/23/17 08/23/17 08/23/17 06:59 14:59 22:59 06:59 14:59 22:59 Intake Total 530 ml 150 ml 960 ml 240 ml Output Total 2500 ml 1800 ml 1125 ml Balance -1970 ml 150 ml -840 ml -885 ml Intake Oral 480 ml 960 ml 240 ml IV Total 50 ml 150 ml Output Urine Total 2500 ml 1800 ml 1125 ml Result Diagram: 08/23/17 0508/23/17 05 Other Results Laboratory Tests Test 08/20/17 18:09 08/20/17 21:31 08/21/17 02:50 08/21/17 21:45 Activated Partial Thromboplast Time 39.5 SEC 44.9 SEC Gentamicin Level Peak 1.1 MCG/ML White Blood Count 10.9 TH/MM3 Red Blood Count 4.64 MIL/MM3 Hemoglobin 12.7 GM/DL Hematocrit 37.7 % Mean Corpuscular Volume 81.1 FL Mean Corpuscular Hemoglobin 27.4 PG Mean Corpuscular Hemoglobin Concent 33.8 % Red Cell Distribution Width 17.2 % Platelet Count 172 TH/MM3 Mean Platelet Volume 9.0 FL Neutrophils (%) (Auto) 70.4 % Lymphocytes (%) (Auto) 17.3 % Monocytes (%) (Auto) 10.3 % Eosinophils (%) (Auto) 1.5 % Basophils (%) (Auto) 0.5 % Neutrophils # (Auto) 7.6 TH/MM3 Lymphocytes # (Auto) 1.9 TH/MM3 Monocytes # (Auto) 1.1 TH/MM3 Eosinophils # (Auto) 0.2 TH/MM3 Basophils # (Auto) 0.1 TH/MM3 CBC Comment AUTO DIFF Differential Total Cells Counted 100 Neutrophils % (Manual) 71 % Band Neutrophils % 3 % Lymphocytes % 13 % Monocytes % 9 % Eosinophils % 2 % Neutrophils # (Manual) 8.3 TH/MM3 Metamyelocytes 2 % Differential Comment FINAL DIFF MANUAL Toxic Granulation 1+ Platelet Estimate NORMAL Platelet Morphology Comment NORMAL Ovalocytes 1+ Blood Urea Nitrogen 19 MG/DL Creatinine 0.93 MG/DL Random Glucose 283 MG/DL Total Protein 6.4 GM/DL Albumin 2.2 GM/DL Calcium Level 8.4 MG/DL Phosphorus Level 3.2 MG/DL Magnesium Level 2.0 MG/DL Alkaline Phosphatase 85 U/L Aspartate Amino Transf (AST/SGOT) 17 U/L Alanine Aminotransferase (ALT/SGPT) 19 U/L Total Bilirubin 0.3 MG/DL Sodium Level 137 MEQ/L Potassium Level 4.5 MEQ/L Chloride Level 101 MEQ/L Carbon Dioxide Level 28.9 MEQ/L Anion Gap 7 MEQ/L Estimat Glomerular Filtration Rate 83 ML/MIN Hemoglobin A1c 9.8 % B-Type Natriuretic Peptide 704 PG/ML Free Thyroxine 1.34 NG/DL Thyroid Stimulating Hormone 3rd Gen 2.420 uIU/ML Gentamicin Level Trough 1.0 MCG/ML Test 08/21/17 23:27 08/22/17 06:05 08/23/17 05:19 08/23/17 11:06 Blood Urea Nitrogen 17 MG/DL 18 MG/DL Creatinine 0.83 MG/DL 0.82 MG/DL 0.88 MG/DL Random Glucose 299 MG/DL 236 MG/DL Total Protein 6.5 GM/DL 7.0 GM/DL Albumin 2.2 GM/DL 2.3 GM/DL Calcium Level 8.5 MG/DL 9.0 MG/DL Phosphorus Level 2.8 MG/DL 3.7 MG/DL Magnesium Level 2.0 MG/DL 2.1 MG/DL Alkaline Phosphatase 84 U/L 84 U/L Aspartate Amino Transf (AST/SGOT) 9 U/L 11 U/L Alanine Aminotransferase (ALT/SGPT) 19 U/L 19 U/L Total Bilirubin 0.3 MG/DL 0.4 MG/DL Sodium Level 134 MEQ/L 133 MEQ/L Potassium Level 4.6 MEQ/L 5.1 MEQ/L Chloride Level 101 MEQ/L 98 MEQ/L Carbon Dioxide Level 22.4 MEQ/L 25.8 MEQ/L Anion Gap 11 MEQ/L 9 MEQ/L Estimat Glomerular Filtration Rate 95 ML/MIN 96 ML/MIN 89 ML/MIN Gentamicin Level Peak 4.6 MCG/ML White Blood Count 11.5 TH/MM3 12.3 TH/MM3 Red Blood Count 4.51 MIL/MM3 4.56 MIL/MM3 Hemoglobin 12.5 GM/DL 12.5 GM/DL Hematocrit 36.8 % 36.8 % Mean Corpuscular Volume 81.7 FL 80.7 FL Mean Corpuscular Hemoglobin 27.7 PG 27.4 PG Mean Corpuscular Hemoglobin Concent 33.9 % 34.0 % Red Cell Distribution Width 17.2 % 17.1 % Platelet Count 205 TH/MM3 243 TH/MM3 Mean Platelet Volume 8.7 FL 9.4 FL Neutrophils (%) (Auto) 72.8 % 74.7 % Lymphocytes (%) (Auto) 15.8 % 15.7 % Monocytes (%) (Auto) 8.9 % 7.9 % Eosinophils (%) (Auto) 1.8 % 1.1 % Basophils (%) (Auto) 0.7 % 0.6 % Neutrophils # (Auto) 8.4 TH/MM3 9.2 TH/MM3 Lymphocytes # (Auto) 1.8 TH/MM3 1.9 TH/MM3 Monocytes # (Auto) 1.0 TH/MM3 1.0 TH/MM3 Eosinophils # (Auto) 0.2 TH/MM3 0.1 TH/MM3 Basophils # (Auto) 0.1 TH/MM3 0.1 TH/MM3 CBC Comment AUTO DIFF DIFF FINAL Differential Total Cells Counted 100 Neutrophils % (Manual) 80 % Band Neutrophils % 2 % Lymphocytes % 9 % Monocytes % 7 % Eosinophils % 1 % Neutrophils # (Manual) 9.4 TH/MM3 Differential Comment FINAL DIFF MANUAL Plasma Cells 1 % Platelet Estimate NORMAL Platelet Morphology Comment NORMAL Ovalocytes 1+ Activated Partial Thromboplast Time 53.7 SEC 44.5 SEC Imaging Last Impressions Aorta w/Runoff CTA 08/19/17 Signed Impressions: CONCLUSION: 1. Atherosclerotic changes without significant stenosis bilateral lower extrem ities. Chest X-Ray 08/15/17 0955 Signed Impressions: CONCLUSION: 1. No acute abnormality or significant interval change. Toe X-Ray 08/15/17 Signed Impressions: CONCLUSION: Questionable small erosion distal phalanx right second toe. This could be infec tious in nature if there is clinical evidence for soft tissue infection. Renal Ultrasound 08/15/17 Signed Impressions: CONCLUSION: 1. No hydronephrosis. 2. Increased echogenicity most characteristic of medical renal disease. Foot MRI 08/15/17 Signed Impressions: CONCLUSION: 1. No evidence for osteomyelitis. Soft tissue swelling at the second toe. Extremity Arterial Study 08/15/17 Signed Impressions: CONCLUSION: 1. Findings consistent with left outflow disease as well as small vessel disea se in the left foot. 2. Near normal range right ankle-brachial indices and segmental pressures. Objective Remarks GENERAL: Awake alert and oriented 3 talkative and cooperative SKIN: Warm and dry. Right second toe is AMPUTATED--FOOT IS DRESSED HEAD: Atraumatic. Normocephalic. EYES: Pupils equal and round. No scleral icterus. No injection or drainage. extraocular muscles intact ENT: No nasal bleeding or discharge. Mucous membranes pink and moist. Tongue is midline NECK: Trachea midline. No JVD. Supple CARDIOVASCULAR: Regular rate and rhythm. S1-S2 no S3 or S4 RESPIRATORY: No accessory muscle use. Clear to auscultation. Breath sounds equal bilaterally. GASTROINTESTINAL: Abdomen soft, non-tender, nondistended. Hepatic and splenic margins not palpable. MUSCULOSKELETAL: Extremities without clubbing, cyanosis, or edema. No obvious deformities. Right second toe is AMPUTATED- FOOT IS DRESSED NEUROLOGICAL: Awake and alert. No obvious cranial nerve deficits. Motor grossly within normal limits. Five out of 5 muscle strength in the arms and legs. Normal speech. PSYCHIATRIC: Appropriate mood and affect; insight and judgment normal. Procedures August 20, 2017 Pre Op Diagnosis: gangrene with osteomyelitis right 2nd toe Post Op Diagnosis: same Surgeon: Ron Goldman DPM Director Of Exhibit Development(s): Staff Procedure: amputation right 2nd toe Findings: Consistent with diagnosis. Right 2nd toe with necrotic tissue to entire digit. Foul odor slightly present. Margins clean without purulence. Two semi-elliptical incisions made to disarticulate digit in its entirety at metatarsophalangeal joint level. 2nd metatarsal head with white healthy cartilage cap. No purulence noted. Culture taken prior to irrigation and primary closure with 2-0 nylon suture. Dressing with xeroform, 4x4, cast padding, livia. Weightbearing as tolerated to heel in surgical shoe for transfers only. Additional Information: see findings Complications: none Specimen(s) removed: 1. toe right 2nd 2. culture right foot Estimated blood loss: minimal Anesthesia: MAC, Local (10mL 2% lidocaine plain) Drains: None Tourniquet time (min at mmHg) n/a Patient to: PACU Patient Condition: Good Date/Time of Procedure: SEE SURGICAL CARE RECORD Ron Goldman DPM Medications and IVs Current Medications Sodium Chloride (NS Flush) 2 ml UNSCH PRN IVF FLUSH AFTER USING IV ACCESS Last administered on 08/19/17at 08:31; Start 08/15/17 at 10:00 Piperacillin Sod/ Tazobactam Sod 50 ml @ 100 mls/hr ONCE ONCE IV Last administered on 08/15/17at 12:07; Start 08/15/17 at 11:30; Stop 08/15/17 at 11:59 ; Status DC Vancomycin HCl 1350 mg/Sodium Chloride 513.5 ml @ 250 mls/hr ONCE ONCE IV Last administered on 08/15/17at 13:27; Start 08/15/17 at 11:30; Stop 08/15/17 at 13:33; Status DC Aspirin (Aspirin Chew) 162 mg ONCE ONCE CHEW Last administered on 08/15/17at 12 :02; Start 08/15/17 at 11:30; Stop 08/15/17 at 11:31; Status DC Heparin Sodium (Porcine) (Heparin Inj) 4,000 units ONCE ONCE IV PUSH Last administered on 08/15/17at 12:03; Start 08/15/17 at 11:45; Stop 08/15/17 at 11:46 ; Status DC Heparin Sodium/ Dextrose 250 ml @ 10 mls/hr TITRATE PRN IV Coagulation Management Last administered on 08/16/17at 16:19; Start 08/15/17 at 11:45; Stop 08/20/17 at 21:48; Status DC Dextrose (D50w (Vial) Inj) 50 ml UNSCH PRN IV PUSH HYPOGLYCEMIA-SEE COMMENTS; Start 08/15/17 at 13:30 Glucagon (Glucagon Inj) 1 mg UNSCH PRN OTHER HYPOGLYCEMIA-SEE COMMENTS; Start 08/15/17 at 13:30 Insulin Aspart (NovoLOG SUPPLEMENTAL SCALE) 1 ACHS SLIDING SCALE SQ Last administered on 08/23/17at 12:00; Start 08/15/17 at 17:00 Sodium Chloride 1,000 ml @ 60 mls/hr [id number] IV Last administered on at 18:23; Start 08/15/17 at 13:30; Stop 08/18/17 at 10:00; Status DC Piperacillin Sod/ Tazobactam Sod 50 ml @ 100 mls/hr Q6H IV Last administered on 08/17/17at 17:02; Start 08/15/17 at 18:00; Stop 08/18/17 at 09:02; Status DC Pharmacy Profile Note 0 ml @ 0 mls/hr UNSCH OTHER ; Start 08/15/17 at 13:30; Stop 08/17/17 at 11:26; Status DC Aspirin (Ecotrin Ec) 162 mg DAILY PO Last administered on 08/17/17at 09:05; Start 08/16/17 at 09:00; Stop 08/19/17 at 12:04; Status DC Famotidine (Pepcid) 20 mg BID PO Last administered on 08/18/17at 08:52; Start at 21:00; Stop 08/18/17 at 10:16; Status DC Pravastatin Sodium (Pravachol) 40 mg DAILY PO Last administered on 08/23/17at 09: 47; Start 08/16/17 at 09:00 Albuterol/ Ipratropium (Duoneb Neb) 1 ampule Q4HR NEB PRN NEB SHORTNESS OF BREATH Last administered on 08/15/17at 15:38; Start 08/15/17 at 13:45 Vancomycin HCl 1500 mg/Sodium Chloride 515 ml @ 250 mls/hr Q24H IV Last administered on 08/16/17at 14:18; Start 08/16/17 at 14:00; Stop 08/16/17 at 16:40 ; Status DC Acetaminophen (Tylenol) 650 mg Q4H PRN PO FEVER/PAIN 1-5 Last administered on at 11:45; Start 08/15/17 at 14:30 Acetaminophen/ Hydrocodone Bitart ([place] 5-325 Mg) 1 tab Q4H PRN PO PAIN 6-10 Last administered on 08/22/17at 12:50; Start 08/15/17 at 14:30 Gadobenate Dimeglumine (Multihance Pf Inj) 18 ml STK-MED ONCE IV Last administered on 08/15/17at 17:21; Start 08/15/17 at 17:21; Stop 08/15/17 at 17:22 ; Status DC Metoclopramide HCl (Reglan Inj) 10 mg ONCE ONCE IV PUSH Last administered on at 02:05; Start 08/16/17 at 02:15; Stop 08/16/17 at 02:16; Status DC Metoclopramide HCl (Reglan Inj) 5 mg Q6H PRN IV PUSH NAUSEA OR VOMITING Last administered on 08/16/17at 20:10; Start 08/16/17 at 02:30 Ondansetron HCl (Zofran Odt) 4 mg Q6H PRN PO NAUSEA OR VOMITING Last administered on 08/19/17at 11:50; Start 08/16/17 at 02:30 Metoprolol Tartrate (Lopressor Inj) 5 mg ONCE ONCE IV PUSH Last administered on 08/16/17at 02:39; Start 08/16/17 at 02:45; Stop 08/16/17 at 02:46; Status DC Metoprolol Tartrate (Lopressor Inj) 5 mg Q5M PRN IV PUSH ATRIAL FLUTTER Last administered on 08/16/17at 03:06; Start 08/16/17 at 02:45 Miscellaneous Information ([facility] Ordered Lab Info) SPECIFIC LAB TO BE SHERRON..Andrew ONCE ONCE .XX ; Start 08/18/17 at 12:45; Stop 08/18/17 at 12:46; Status Cancel Insulin Detemir (Levemir Inj) 10 units HS SQ Last administered on 08/22/17at 22: 58; Start 08/16/17 at 21:00 Vancomycin HCl 1000 mg/Sodium Chloride 250 ml @ 250 mls/hr Q12H IV Last administered on 08/17/17at 01:06; Start 08/17/17 at 02:00; Stop 08/17/17 at 11:26 ; Status DC Miscellaneous Information ([facility] Ordered Lab Info) SPECIFIC LAB TO BE SHERRON..Andrew ONCE ONCE .XX ; Start 08/18/17 at 13:45; Stop 08/18/17 at 13:46; Status DC Benzonatate (Tessalon) 100 mg TID PRN PO COUGH Last administered on 08/20/17at 02:00; Start 08/17/17 at 03:00 Guaifenesin/ Codeine Phosphate (Robitussin Ac 200-20 Mg/10 ml Liq) 10 ml Q6H PRN PO COUGH; Start 08/17/17 at 03:00 Magnesium Sulfate/ Dextrose 100 ml @ 100 mls/hr Q1H IV Last administered on at 09:45; Start 08/17/17 at 08:45; Stop 08/17/17 at 10:44; Status DC Cefazolin Sodium/ Dextrose 50 ml @ 100 mls/hr Q8H IV Last administered on 08/17at 21:32; Start 08/17/17 at 13:00; Stop 08/17/17 at 23:30; Status DC Carvedilol (Coreg) 6.25 mg Q12HR PO Last administered on 08/23/17at 09:46; Start 08/17/17 at 11:30 Sacubitril/ Valsartan (Entresto 49-51 Mg) 1 tab BID PO Last administered on 08/23at 09:46; Start 08/17/17 at 21:00 Cefepime HCl 1000 mg/Sodium Chloride 100 ml @ 200 mls/hr Q8H IV Last administered on 08/18/17at 08:49; Start 08/18/17 at 00:00; Stop 08/18/17 at 09:01 ; Status DC Piperacillin Sod/ Tazobactam Sod 50 ml @ 100 mls/hr Q6H IV Last administered on 08/19/17at 10:00; Start 08/18/17 at 10:00; Stop 08/19/17 at 11:16; Status DC Cefazolin Sodium/ Dextrose 50 ml @ 100 mls/hr Q8H IV Last administered on at 09:46; Start 08/18/17 at 09:00 Aspirin (Aspirin Chew) 81 mg DAILY CHEW Last administered on 08/23/17at 09:47; Start 08/19/17 at 12:10 Pharmacy Profile Note 0 ml @ 0 mls/hr UNSCH OTHER ; Start 08/19/17 at 11:15; Stop 08/22/17 at 15:06; Status DC Heparin Sodium/ Dextrose 250 ml @ 16.128 mls/ hr TITRATE PRN IV Coagulation Management Last administered on 08/22/17at 12:00; Start 08/19/17 at 12:30 Gentamicin Sulfate 90 mg/ Sodium Chloride 102.25 ml @ 200 mls/ hr Q8H IV Last administered on 08/22/17at 06:16; Start 08/19/17 at 14:00; Stop 08/22/17 at 15:06 ; Status DC Miscellaneous Information ([facility] Ordered Lab Info) SPECIFIC LAB TO BE SHERRON... ONCE ONCE .XX ; Start 08/20/17 at 13:45; Stop 08/20/17 at 13:46; Status DC Miscellaneous Information ([facility] Ordered Lab Info) SPECIFIC LAB TO BE SHERRON... ONCE ONCE .XX Last administered on 08/20/17at 15:00; Start 08/20/17 at 15:00; Stop 08/20/17 at 15:01; Status DC Iohexol (Omnipaque 350 Inj) 100 ml STK-MED ONCE IVCONTRAST Last administered on 08/19/17at 13:57; Start 08/19/17 at 13:57; Stop 08/19/17 at 13:58; Status DC Sodium Chloride 1,000 ml @ 100 mls/hr Q10H IV Last administered on 08/21/17at 10:17; Start 08/20/17 at 11:15; Status Future Hold Pantoprazole Sodium (Protonix Inj) 40 mg ONCE ONCE IV PUSH Last administered on 08/20/17at 12:55; Start 08/20/17 at 12:45; Stop 08/20/17 at 12:50; Status DC Pantoprazole Sodium (Protonix) 40 mg DAILY PO Last administered on 08/23/17at 09: 47; Start 08/21/17 at 09:00 Ketamine HCl (Ketalar Inj) 50 mg STK-MED ONCE .ROUTE ; Start 08/20/17 at 15:41; Stop 08/20/17 at 15:42; Status DC Lidocaine HCl (Xylocaine-Mpf 2% Inj) 20 ml STK-MED ONCE .ROUTE Last administered on 08/20/17at 16:28; Start 08/20/17 at 16:24; Stop 08/20/17 at 16:25 ; Status DC Midazolam HCl (Versed Inj) 2 mg STK-MED ONCE .ROUTE ; Start 08/20/17 at 17:16; Stop 08/20/17 at 17:17; Status DC Miscellaneous Information ([facility] Nursing Information) ALL NURSING DEPARTME... UNSCH PRN .XX SEE LABEL COMMENTS; Start 08/20/17 at 17:07; Stop 08/21/17 at 17: 06; Status DC Miscellaneous Information ([facility] Ordered Lab Info) SPECIFIC LAB TO BE DRAWN:GENTAMICIN TROUGH DATE TO... ONCE ONCE .XX Last administered on at 21:45; Start 08/21/17 at 21:45; Stop 08/21/17 at 21:46; Status DC Miscellaneous Information ([facility] Ordered Lab Info) SPECIFIC LAB TO BE DRAWN:GENTAMICIN PEAK DATE TO... ONCE ONCE .XX Last administered on 08/21/17at 23:25; Start 08/21/17 at 23:00; Stop 08/21/17 at 23:01; Status DC Propofol (Diprivan 200 Mg/20 ml Inj) 200 mg STK-MED ONCE IV Last administered on 08/20/17at 12:00; Start 08/20/17 at 12:00; Stop 08/22/17 at 13:49; Status DC A/P Problem List: (1) Severe sepsis ICD Code: A41.9 - Sepsis, unspecified organism; R65.20 - Severe sepsis without septic shock (2) Elevated troponin ICD Code: R74.8 - Abnormal levels of other serum enzymes (3) gangrene of the right second toe Assessment and Plan Severe sepsis due to gangrene/ infection of the right second toe Staph aureus bacteremia-- persistent bacteremia- check echo- may need CARA ID [id number] - on zosyn and Ancef Repeat BC to document clearing in next few days May need CARA Podiatry following Vascular surgery ff- requested for CTA runoff- DONE FOR SURGERY ON RIGHT 2ND TOE 08-20 WITH PODIATRY August 20, 2017 Pre Op Diagnosis: gangrene with osteomyelitis right 2nd toe Surgeon: Ron Goldman DPM Procedure: amputation right 2nd toe Findings: Consistent with diagnosis. Right 2nd toe with necrotic tissue to entire digit. Foul odor slightly present. Margins clean without purulence. Two semi-elliptical incisions made to disarticulate digit in its entirety at metatarsophalangeal joint level. 2nd metatarsal head with white healthy cartilage cap. No purulence noted. Culture taken prior to irrigation and primary closure with 2-0 nylon suture. Dressing with xeroform, 4x4, cast padding, livia. Weightbearing as tolerated to heel in surgical shoe for transfers only. Specimen(s) removed: 1. toe right 2nd 2. culture right foot Ischemic cardiomyopathy EF 25% - nstemi, Debrillator fired evening 5.25 NSTEMI with history of CAD- had cardiac cath two months ago with severe three vessel disease- was evaluated by CT surgery at the time with poor targets for redo sternotomy high metabolic demand from sepsis - clinically feeling better - continue electrolyte monitoring - ASA, Heparin drip- DC due to thrombocytopenia- Hematology consulted for recommendation - continue Entresto, Coreg - will start ASA Acute kidney injury; improved- started on gentle IV hydration in light of cardiomyopathy- monitor renal function -thrombocytopenia- likely due to sepsis - continue ASA - FF CBC -seen by Dr. Jones. HIT ab negative- restart heparin drip- will d/w Dr. Jones - will also DC Pepcid- due to thrombocytopenia Diabetes mellitus- sliding scale -COPD with no exacerbation; neb treatment as needed. -diabetes mellitus; uncontrolled- hold oral hypoglycemics- start on accu-check with SSI. continue Levemir and adjust -DVT prophylaxis;encoruage increase activity palliative care ff CM ff - assisting with transfer to a tertiary center for transplant-- no insurance, assisting us with Medicaid application CONTINUE ANTIBIOTICS PER ID Discharge Planning PENDING ID CLEARANCE Lavelle Patricia DO Aug 23, 2017 15:50
--- NOTE | 2017-08-23 16:51 | RADRPT ---
EXAM DATE: 08/23/2017 1:39 PM EDT AGE/SEX: 57 years / Male INDICATIONS: Shortness of breath. Evaluate for possible pneumonia. CLINICAL DATA: This is the patient's initial encounter. Patient reports that signs and symptoms have been present for 1 day and indicates a pain score of 0/10. MEDICAL/SURGICAL HISTORY: Diabetes mellitus type II. heart attack CABG. defibrillator COMPARISON: [facility] [place], CHEST SINGLE AP, 08/15/2017. . FINDINGS: A single AP view of the chest demonstrates the lungs to be symmetrically aerated without evidence of mass, infiltrate or effusion. The cardiomediastinal contours are unremarkable. Osseous structures a re intact. The patient is again noted to be status post median sternotomy. The left subclavian trans venous pacer remains in place. CONCLUSION: Stable appearance with no acute cardiopulmonary disease. There is no evidence of pneumonia. Electronically signed by: Nick Agee MD 08/23/2017 4:49 PM EDT
[2017-08-23] MEDS: HEPARIN-D5W 25,000 U/250 ML 250 ML IV PRN (16:57)
[2017-08-23] MEDS: ACETAMINOPHEN/HYDROcodone 325 MG/5 MG TAB PO PRN (20:16)
[2017-08-23] MEDS: INSULIN DETEMIR 100 UNITS/ML VIAL SQ SCH (20:17)
[2017-08-24] VITALS (26 sets, daily range): BP systolic 91–136; BP diastolic 56–82; PULSE 56–90; RESP 16–20; TEMP 98–98.8; O2SAT 95–98
[2017-08-24] MEDS: ceFAZolin 2 GM PREMIX 50 ML IV SCH ×3 (01:02→17:00)
[2017-08-24] MEDS: ACETAMINOPHEN/HYDROcodone 325 MG/5 MG TAB PO PRN ×2 (03:54→20:25)
[2017-08-24] MEDS: HEPARIN-D5W 25,000 U/250 ML 250 ML IV PRN (05:12)
[2017-08-24 05:39] LABS: AUTOMATED NEUTROPHIL # 7.6 TH/MM3 (1.8-7.7); BASOPHIL # 0.1 TH/MM3 (0-0.2); EOSINOPHIL # 0.1 TH/MM3 (0-0.4); EOSINOPHIL % 1.1 % (0.0-4.0); HEMATOCRIT 36.5 % (39.0-51.0); HEMOGLOBIN 12.5 GM/DL (13.0-17.0); LYMPH % 17.6 % (9.0-44.0); LYMPHOCYTE # 1.8 TH/MM3 (1.0-4.8); MEAN CELL VOLUME 80.9 FL (80.0-100.0); MEAN CORPUSCULAR HEMOGLOBIN 27.8 PG (27.0-34.0); MEAN CORPUSCULAR HGB CONC 34.4 % (32.0-36.0); MEAN PLATELET VOLUME 8.3 FL (7.0-11.0); MONO % 8.1 % (0.0-8.0); MONOCYTE # 0.8 TH/MM3 (0-0.9); NEUT % 72.2 % (16.0-70.0); PLATELET COUNT 242 TH/MM3 (150-450); RED BLOOD COUNT 4.51 MIL/MM3 (4.50-5.90); RED CELL DISTRIBUTION WIDTH 17.1 % (11.6-17.2); WHITE BLOOD COUNT 10.5 TH/MM3 (4.0-11.0)
[2017-08-24 05:55] LABS: ALBUMIN 2.3 GM/DL (3.4-5.0); AST (GOT) 17 U/L (15-37); BICARBONATE 25.2 MEQ/L (21.0-32.0); BLOOD UREA NITROGEN 22 MG/DL (7-18); CALCIUM 8.8 MG/DL (8.5-10.1); CHLORIDE 98 MEQ/L (98-107); CREATININE 0.91 MG/DL (0.60-1.30); GLOMERULAR FILTRATION RATE 85 ML/MIN (>89); GLUCOSE,RANDOM 279 MG/DL (74-106); MAGNESIUM 2.1 MG/DL (1.5-2.5); SODIUM (NA) 131 MEQ/L (136-145)
[2017-08-24 05:56] LABS: ALT (GPT) 22 U/L (12-78)
[2017-08-24 05:59] LABS: ALKALINE PHOSPHATASE 87 U/L (45-117); PHOSPHORUS 3.6 MG/DL (2.5-4.9); TOTAL BILIRUBIN ADULT 0.3 MG/DL (0.2-1.0); TOTAL PROTEIN 7.2 GM/DL (6.4-8.2)
[2017-08-24] MEDS: INSULIN ASPART SUPPLEMENTAL SCALE SQ SCH ×4 (08:00→20:33)
[2017-08-24] MEDS: PRAVASTATIN SOD 40 MG TAB PO SCH (08:54)
[2017-08-24] MEDS: ASPIRIN 81 MG CHEW TAB CHEW SCH (08:54)
[2017-08-24] MEDS: SACUBITRIL/VALSARTAN 49 MG-51 MG TAB PO SCH ×2 (08:55→20:22)
[2017-08-24] MEDS: PANTOPRAZOLE SOD 40 MG DELAYED RELEASE TAB PO SCH (08:55)
[2017-08-24] MEDS: CARVEDILOL 6.25 MG TAB PO SCH ×2 (08:55→20:22)
--- NOTE | 2017-08-24 10:01 | HHI.IDPN ---
Subjective Subjective Remarks Patient seen and examined on behalf of Dr. Galan is a 57 y/o CM with PMHx of CHF, Ischemic Cardiomyopathy with last reported EF 20-25%, he has prior h/o CABG x 3, defibrillator and pacemaker, DM, HTN and hyperlipidemia. CT surgery evaluated and found him not to be a revascularization candidate and recommended referral to a tertiary center for transplant consideration. As the patient has no insurance this option has not been found feasible. He underwent placement of a single-chamber [place] ICD in May 2017 for sudden cardiac prevention. With this background patient presents to the ED at [facility] with 4 day history of progressive dyspnea described as severe, worsening with exertion, and improved with rest. He has had associated symptoms of diaphoresis, nausea and vomiting over the weekend. He additionally has noted painful changes in his right second toe with color changes suspicious for infection. In ED patient was noted to have WBC 9.6, hemoglobin 15.0, hematocrit 43.9, platelets 133, sodium 130, potassium 4.4, BUN 36, creatinine 1.84, random glucose 407 alkaline phosphatase 114, AST 37, ALT 25, total bilirubin 0.9, troponin 3.04, C-reactive protein 26.8, B natruretic peptide 3148, lactic acid 5.5. Ax Xray of Rt toe showed erosion. MRI with no osteomyelitis. Chest x-ray showed no acute abnormality or significant interval change. 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 He states that he is only able to be active for 5-10 minutes before becoming very dyspneic and exhausted. 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 He is now attempting to get disability as he has a nearly homebound existence and requires assistance to get out to doctor's appointments. Sepsis workup on admission positive for Staph bacteremia and ID consulted for evaluation and Mment of the same. Notes reviewed no fever no rash no diarrhea S/P ICD placement May 2017 denies SOB today. Antibiotics IV Ancef Current Medications Medications (Trade) Dose Ordered Sig/Erika Route Start Time Stop Time Status Last Admin (NS Flush) 2 ml UNSCH PRN IVF 08/15/17 10:00 08/19/17 08:31 (D50w (Vial) Inj) 50 ml UNSCH PRN IV PUSH 08/15/17 13:30 (Glucagon Inj) 1 mg UNSCH PRN OTHER 08/15/17 13:30 (NovoLOG SUPPLEMENTAL SCALE) 1 ACHS SLIDING SCALE SQ 08/15/17 17:00 08/22/17 22:58 (Pravachol) 40 mg DAILY PO 08/16/17 09:00 08/22/17 08:18 (Duoneb Neb) 1 ampule Q4HR NEB PRN NEB 08/15/17 13:45 08/15/17 15:38 (Tylenol) 650 mg Q4H PRN PO 08/15/17 14:30 08/18/17 11:45 ([place] 5-325 Mg) 1 tab Q4H PRN PO 08/15/17 14:30 08/22/17 12:50 (Reglan Inj) 5 mg Q6H PRN IV PUSH 08/16/17 02:30 08/16/17 20:10 (Zofran Odt) 4 mg Q6H PRN PO 08/16/17 02:30 08/19/17 11:50 (Lopressor Inj) 5 mg Q5M PRN IV PUSH 08/16/17 02:45 08/16/17 03:06 (Levemir Inj) 10 units HS SQ 08/16/17 21:00 08/22/17 22:58 (Tessalon) 100 mg TID PRN PO 08/17/17 03:00 08/20/17 02:00 (Robitussin Ac 200-20 Mg/10 ml Liq) 10 ml Q6H PRN PO 08/17/17 03:00 (Coreg) 6.25 mg Q12HR PO 08/17/17 11:30 08/22/17 22:57 (Entresto 49-51 Mg) 1 tab BID PO 08/17/17 21:00 08/22/17 22:57 Cefazolin Sodium/ Dextrose 50 ml @ 100 mls/hr Q8H IV 08/18/17 09:00 08/23/17 01:17 (Aspirin Chew) 81 mg DAILY CHEW 08/19/17 12:10 08/22/17 08:18 Heparin Sodium/ Dextrose 250 ml @ 16.128 mls/ hr TITRATE PRN IV 08/19/17 12:30 08/22/17 12:00 Sodium Chloride 1,000 ml @ 100 mls/hr Q10H IV 08/20/17 11:15 Future Hold 08/21/17 10:17 (Protonix) 40 mg DAILY PO 08/21/17 09:00 08/22/17 08:18 Lines PIV no evidence of infection Past Medical History Severe ischemic cardiomyopathy EF 20-25% Hyperlipidemia Diabetes Coronary artery disease status post [place] 06/04 COPD Past Surgical History CABG 10 years ago Pacemaker/Defibrillator insertion Appendectomy Skin graft to right foot as a child Back surgeries 3 has hardware in back per report. Allergies: Coded Allergies: potassium iodide (Unverified Allergy, Severe, Swelling, 06/12/17) povidone-iodine (Unverified Allergy, Severe, Swelling, 06/12/17) shellfish derived (Unverified Allergy, Severe, 06/12/17) sodium iodide (Unverified Allergy, Severe, Swelling, 06/12/17) sodium iodide (Unverified Allergy, Severe, Swelling, 06/12/17) Objective . Vital Signs Date Time Temp Pulse Resp B/P (MAP) Pulse Ox O2 Delivery O2 Flow Rate FiO2 08/24/17 07:30 Room Air 08/24/17 07:30 68 08/24/17 07:30 98.7 72 16 91/57 (68) 98 08/24/17 06:00 71 08/24/17 05:00 68 08/24/17 04:00 Nasal Cannula 2.00 08/24/17 04:00 98.2 70 18 136/82 (100) 97 08/24/17 04:00 70 08/24/17 03:00 72 08/24/17 02:00 75 08/24/17 01:00 72 08/24/17 00:00 98.8 82 20 119/73 (88) 98 08/24/17 00:00 Nasal Cannula 2.00 08/24/17 00:00 82 08/23/17 23:00 76 08/23/17 22:00 79 08/23/17 21:34 93 Nasal Cannula 2.00 08/23/17 21:00 70 08/23/17 20:00 98.6 73 20 126/88 (101) 96 08/23/17 20:00 73 08/23/17 20:00 Nasal Cannula 2.00 08/23/17 18:00 70 08/23/17 17:00 70 08/23/17 16:00 66 08/23/17 15:17 98.1 71 16 98/60 (73) 98 08/23/17 15:00 79 08/23/17 14:05 21 08/23/17 12:00 70 08/23/17 11:00 98.8 73 16 110/70 (83) 98 08/23/17 11:00 70 08/23/17 10:00 68 08/24/17 08/24/17 08/25/17 15:00 23:00 07:00 Intake Total 50 ml Balance 50 ml IV Total 50 ml . Laboratory Tests Test 08/23/17 05:19 08/24/17 05:04 White Blood Count 12.3 TH/MM3 10.5 TH/MM3 Red Blood Count 4.56 MIL/MM3 4.51 MIL/MM3 Hemoglobin 12.5 GM/DL 12.5 GM/DL Hematocrit 36.8 % 36.5 % Mean Corpuscular Volume 80.7 FL 80.9 FL Mean Corpuscular Hemoglobin 27.4 PG 27.8 PG Mean Corpuscular Hemoglobin Concent 34.0 % 34.4 % Red Cell Distribution Width 17.1 % 17.1 % Platelet Count 243 TH/MM3 242 TH/MM3 Mean Platelet Volume 9.4 FL 8.3 FL Neutrophils (%) (Auto) 74.7 % 72.2 % Lymphocytes (%) (Auto) 15.7 % 17.6 % Monocytes (%) (Auto) 7.9 % 8.1 % Eosinophils (%) (Auto) 1.1 % 1.1 % Basophils (%) (Auto) 0.6 % 1.0 % Neutrophils # (Auto) 9.2 TH/MM3 7.6 TH/MM3 Lymphocytes # (Auto) 1.9 TH/MM3 1.8 TH/MM3 Monocytes # (Auto) 1.0 TH/MM3 0.8 TH/MM3 Eosinophils # (Auto) 0.1 TH/MM3 0.1 TH/MM3 Basophils # (Auto) 0.1 TH/MM3 0.1 TH/MM3 CBC Comment DIFF FINAL AUTO DIFF Differential Comment Laboratory Tests Test 08/23/17 05:19 08/24/17 05:04 Blood Urea Nitrogen 18 MG/DL 22 MG/DL Creatinine 0.88 MG/DL 0.91 MG/DL Random Glucose 236 MG/DL 279 MG/DL Total Protein 7.0 GM/DL 7.2 GM/DL Albumin 2.3 GM/DL 2.3 GM/DL Calcium Level 9.0 MG/DL 8.8 MG/DL Phosphorus Level 3.7 MG/DL 3.6 MG/DL Magnesium Level 2.1 MG/DL 2.1 MG/DL Alkaline Phosphatase 84 U/L 87 U/L Aspartate Amino Transf (AST/SGOT) 11 U/L 17 U/L Alanine Aminotransferase (ALT/SGPT) 19 U/L 22 U/L Total Bilirubin 0.4 MG/DL 0.3 MG/DL Sodium Level 133 MEQ/L 131 MEQ/L Potassium Level 5.1 MEQ/L 4.8 MEQ/L Chloride Level 98 MEQ/L 98 MEQ/L Carbon Dioxide Level 25.8 MEQ/L 25.2 MEQ/L Anion Gap 9 MEQ/L 8 MEQ/L Estimat Glomerular Filtration Rate 89 ML/MIN 85 ML/MIN Imaging Last Impressions Aorta w/Runoff CTA 08/19/17 Signed Impressions: CONCLUSION: 1. Atherosclerotic changes without significant stenosis bilateral lower extrem ities. Chest X-Ray 08/15/17 0955 Signed Impressions: CONCLUSION: 1. No acute abnormality or significant interval change. Toe X-Ray 08/15/17 Signed Impressions: CONCLUSION: Questionable small erosion distal phalanx right second toe. This could be infec tious in nature if there is clinical evidence for soft tissue infection. Renal Ultrasound 08/15/17 Signed Impressions: CONCLUSION: 1. No hydronephrosis. 2. Increased echogenicity most characteristic of medical renal disease. Foot MRI 08/15/17 Signed Impressions: CONCLUSION: 1. No evidence for osteomyelitis. Soft tissue swelling at the second toe. Extremity Arterial Study 08/15/17 Signed Impressions: CONCLUSION: 1. Findings consistent with left outflow disease as well as small vessel disea se in the left foot. 2. Near normal range right ankle-brachial indices and segmental pressures. Physical Exam GENERAL: WDWN male patient, INAD. Asleep but easily awakens to voice. Appears comfortable. SKIN: No rashes or lesions. Warm and dry. HEAD: Atraumatic. Normocephalic. EYES: Pupils equal round and reactive. Extraocular motions intact. No scleral icterus. No injection or drainage. ENT: Nose without bleeding or purulent drainage. Airway patent. MMM. NECK: Trachea midline. Supple, nontender, no meningeal signs. CARDIOVASCULAR: HS audible. + ICD. RESPIRATORY: Nonlabored. Clear to auscultation. Breath sounds equal bilaterally. No wheezes, rales, or rhonchi. GASTROINTESTINAL: Abdomen soft, nontender to palpation. MUSCULOSKELETAL: No BLE edema appreciated. Right foot dressed, C/D/I, able to wiggles toes slightly on right foot. Decreased sensation but able to feel light touch on toes. NEUROLOGICAL: Awake and alert. Able to move all extremities spontaneously. Grossly non-focal. Normal speech. Psych calm and cooperative IV line sites with no e.o infection. Assessment & Plan Remarks Sepsis High grade MSSA bacteremia - source ?2nd toe, concern with ICD Right 2nd toe wet gangrene, osteomyelitis. Hepatitis C antibody positive. AICD status. CAD with severe ischemic cardiomyopathy. Thrombocytopenia likely due to severe infection Recs Continue IV Ancef Follow cultures until finalized Follow path Follow clinically CXR reviewed by me and compared to days prior. dw patient path results and need for IV antibiotics. Will need 6 weeks IV Ancef irrespective of bone path due to high grade bacteremia and AICD in place. No PICC till cleared by ID. Hopefully DC saturday if CM able to arrange outpatient antibiotics (Ancef 2 gm IV q8hrs on pump preferred). Needs wound care. Needs clearance from Podiatry. Michelle Galan MD Aug 24, 2017 10:01
[2017-08-24 10:19] LABS: BANDS 5 % (0-6); CORRECTED NUCLEATED RBC 1 /100 WBC (0-0); LYMPHOCYTES 15 % (9-44); METAMYELOCYTES 3 % (0-1); MONOCYTES 6 % (0-8); MYELOCYTES 1 % (0-0); NEUTROPHIL # MANUAL DIFF 8.2 TH/MM3 (1.8-7.7); NUCLEATED RED BLOOD CELL 1 (0-0); POLYS (SEG NEUTROPHILS) 69 % (16-70)
--- NOTE | 2017-08-24 11:57 | PD.CARD.PN ---
Subjective Subjective Remarks appears comfortable in nad Objective Medications Current Medications Medications (Trade) Dose Ordered Sig/Erika Route Start Time Stop Time Status Last Admin (NS Flush) 2 ml UNSCH PRN IVF 08/15/17 10:00 08/19/17 08:31 (D50w (Vial) Inj) 50 ml UNSCH PRN IV PUSH 08/15/17 13:30 (Glucagon Inj) 1 mg UNSCH PRN OTHER 08/15/17 13:30 (NovoLOG SUPPLEMENTAL SCALE) 1 ACHS SLIDING SCALE SQ 08/15/17 17:00 08/24/17 11:34 (Pravachol) 40 mg DAILY PO 08/16/17 09:00 08/24/17 08:54 (Duoneb Neb) 1 ampule Q4HR NEB PRN NEB 08/15/17 13:45 08/15/17 15:38 (Tylenol) 650 mg Q4H PRN PO 08/15/17 14:30 08/18/17 11:45 ([place] 5-325 Mg) 1 tab Q4H PRN PO 08/15/17 14:30 08/24/17 03:54 (Reglan Inj) 5 mg Q6H PRN IV PUSH 08/16/17 02:30 08/16/17 20:10 (Zofran Odt) 4 mg Q6H PRN PO 08/16/17 02:30 08/19/17 11:50 (Lopressor Inj) 5 mg Q5M PRN IV PUSH 08/16/17 02:45 08/16/17 03:06 (Levemir Inj) 10 units HS SQ 08/16/17 21:00 08/23/17 20:17 (Tessalon) 100 mg TID PRN PO 08/17/17 03:00 08/20/17 02:00 (Robitussin Ac 200-20 Mg/10 ml Liq) 10 ml Q6H PRN PO 08/17/17 03:00 (Coreg) 6.25 mg Q12HR PO 08/17/17 11:30 08/24/17 08:55 (Entresto 49-51 Mg) 1 tab BID PO 08/17/17 21:00 08/24/17 08:55 Cefazolin Sodium/ Dextrose 50 ml @ 100 mls/hr Q8H IV 08/18/17 09:00 08/24/17 08:55 (Aspirin Chew) 81 mg DAILY CHEW 08/19/17 12:10 08/24/17 08:54 Heparin Sodium/ Dextrose 250 ml @ 16.128 mls/ hr TITRATE PRN IV 08/19/17 12:30 08/24/17 05:12 Sodium Chloride 1,000 ml @ 100 mls/hr Q10H IV 08/20/17 11:15 Future Hold 08/21/17 10:17 (Protonix) 40 mg DAILY PO 08/21/17 09:00 08/24/17 08:55 Vital Signs / I&O Vital Signs Date Time Temp Pulse Resp B/P (MAP) Pulse Ox O2 Delivery O2 Flow Rate FiO2 08/24/17 11:16 98.0 78 16 101/56 (71) 98 08/24/17 11:00 76 08/24/17 10:00 68 08/24/17 09:00 68 08/24/17 08:00 56 08/24/17 07:30 Room Air 08/24/17 07:30 68 08/24/17 07:30 98.7 72 16 91/57 (68) 98 08/24/17 06:00 71 08/24/17 05:00 68 08/24/17 04:00 Nasal Cannula 2.00 08/24/17 04:00 98.2 70 18 136/82 (100) 97 08/24/17 04:00 70 08/24/17 03:00 72 08/24/17 02:00 75 08/24/17 01:00 72 08/24/17 00:00 98.8 82 20 119/73 (88) 98 08/24/17 00:00 Nasal Cannula 2.00 08/24/17 00:00 82 08/23/17 23:00 76 08/23/17 22:00 79 08/23/17 21:34 93 Nasal Cannula 2.00 08/23/17 21:00 70 08/23/17 20:00 98.6 73 20 126/88 (101) 96 08/23/17 20:00 73 08/23/17 20:00 Nasal Cannula 2.00 08/23/17 18:00 70 08/23/17 17:00 70 08/23/17 16:00 66 08/23/17 15:17 98.1 71 16 98/60 (73) 98 08/23/17 15:00 79 08/23/17 14:05 21 08/23/17 12:00 70 I/O 08/23/17 08/23/17 08/23/17 08/24/17 08/24/17 08/24/17 07:00 15:00 23:00 07:00 15:00 23:00 Intake Total 240 ml 720 ml 240 ml 50 ml Output Total 1125 ml 1350 ml 900 ml Balance -885 ml -630 ml -660 ml 50 ml Intake Oral 240 ml 720 ml 240 ml IV Total 50 ml Output Urine Total 1125 ml 1350 ml 900 ml # Bowel Movements 0 Physical Exam GENERAL: SKIN: Warm and dry. HEAD: Normocephalic. EYES: No scleral icterus. No injection or drainage. NECK: Supple, trachea midline. No JVD or lymphadenopathy. CARDIOVASCULAR: Regular rate and rhythm without murmurs, gallops, or rubs. RESPIRATORY: Breath sounds equal bilaterally. No accessory muscle use. GASTROINTESTINAL: Abdomen soft, non-tender, nondistended. MUSCULOSKELETAL: No cyanosis, or edema. BACK: Nontender without obvious deformity. No CVA tenderness. Laboratory Laboratory Tests Test 08/24/17 05:04 White Blood Count 10.5 TH/MM3 Red Blood Count 4.51 MIL/MM3 Hemoglobin 12.5 GM/DL Hematocrit 36.5 % Mean Corpuscular Volume 80.9 FL Mean Corpuscular Hemoglobin 27.8 PG Mean Corpuscular Hemoglobin Concent 34.4 % Red Cell Distribution Width 17.1 % Platelet Count 242 TH/MM3 Mean Platelet Volume 8.3 FL Neutrophils (%) (Auto) 72.2 % Lymphocytes (%) (Auto) 17.6 % Monocytes (%) (Auto) 8.1 % Eosinophils (%) (Auto) 1.1 % Basophils (%) (Auto) 1.0 % Neutrophils # (Auto) 7.6 TH/MM3 Lymphocytes # (Auto) 1.8 TH/MM3 Monocytes # (Auto) 0.8 TH/MM3 Eosinophils # (Auto) 0.1 TH/MM3 Basophils # (Auto) 0.1 TH/MM3 CBC Comment AUTO DIFF Differential Total Cells Counted 100 Neutrophils % (Manual) 69 % Band Neutrophils % 5 % Lymphocytes % 15 % Monocytes % 6 % Eosinophils % 1 % Neutrophils # (Manual) 8.2 TH/MM3 Metamyelocytes 3 % Myelocytes 1 % Nucleated Red Blood Cells 1 /100 WBC Differential Comment FINAL DIFF MANUAL Platelet Estimate NORMAL Platelet Morphology Comment NORMAL Red Cell Morphology Comment NORMAL Activated Partial Thromboplast Time 51.0 SEC Blood Urea Nitrogen 22 MG/DL Creatinine 0.91 MG/DL Random Glucose 279 MG/DL Total Protein 7.2 GM/DL Albumin 2.3 GM/DL Calcium Level 8.8 MG/DL Phosphorus Level 3.6 MG/DL Magnesium Level 2.1 MG/DL Alkaline Phosphatase 87 U/L Aspartate Amino Transf (AST/SGOT) 17 U/L Alanine Aminotransferase (ALT/SGPT) 22 U/L Total Bilirubin 0.3 MG/DL Sodium Level 131 MEQ/L Potassium Level 4.8 MEQ/L Chloride Level 98 MEQ/L Carbon Dioxide Level 25.2 MEQ/L Anion Gap 8 MEQ/L Estimat Glomerular Filtration Rate 85 ML/MIN Assessment and Plan Problem List: (1) ARF (acute renal failure) ICD Codes: N17.9 - Acute kidney failure, unspecified (2) NSTEMI (non-ST elevated myocardial infarction) ICD Codes: I21.4 - Non-ST elevation (NSTEMI) myocardial infarction (3) CAD (coronary artery disease) ICD Codes: I25.10 - Atherosclerotic heart disease of [place] coronary artery without angina pectoris (4) Decreased cardiac ejection fraction ICD Codes: R93.1 - Abnormal findings on diagnostic imaging of heart and coronary circulation (5) Elevated troponin ICD Codes: R74.8 - Abnormal levels of other serum enzymes (6) Severe sepsis ICD Codes: A41.9 - Sepsis, unspecified organism; R65.20 - Severe sepsis without septic shock (7) Diabetes mellitus ICD Codes: E11.9 - Type 2 diabetes mellitus without complications (8) Acute renal failure ICD Codes: N17.9 - Acute kidney failure, unspecified (9) Cardiomyopathy ICD Codes: I42.9 - Cardiomyopathy, unspecified (10) gangrene of the right second toe (11) Dyspnea and respiratory abnormalities ICD Codes: R06.00 - Dyspnea, unspecified; R06.89 - Other abnormalities of breathing (12) Multi-vessel coronary artery stenosis ICD Codes: I25.10 - Atherosclerotic heart disease of [place] coronary artery without angina pectoris (13) Hx of CABG ICD Codes: Z95.1 - Presence of aortocoronary bypass graft (14) Thrombocytopenia ICD Codes: D69.6 - Thrombocytopenia, unspecified Assessment and Plan 1.) Ischemic cardiomyopathy - nstemi, chf excacerbation and arf due to severe unrevascularizable cad, cardiomyopathy, on aspirin and heparin per hematology, on antibiotics, pod # 4, 2nd toe amputation, stable; entresto added, f/u bnp/ bmp 2.) VT - replete electrolytes, on coreg; d/w case management further attempts to insure and obtain eligibility for referral to heart transplant center Garrett Henao MD Aug 24, 2017 11:57
--- NOTE | 2017-08-24 14:43 | HHI.PR ---
Subjective Remarks Pt seen and examined. AFVSS. No acute events overnight. Denies any acute concerns. Reports pain in his toe is controlled. Denies CP, abdominal pain, fever, chills. Has persistent shortness of breath. Objective Vital Signs Date Time Temp Pulse Resp B/P (MAP) Pulse Ox O2 Delivery O2 Flow Rate FiO2 08/24/17 12:00 76 08/24/17 11:16 98.0 78 16 101/56 (71) 98 08/24/17 11:00 76 08/24/17 10:00 68 08/24/17 09:00 68 08/24/17 08:00 56 08/24/17 07:43 95 Nasal Cannula 2.00 08/24/17 07:30 Room Air 08/24/17 07:30 68 08/24/17 07:30 98.7 72 16 91/57 (68) 98 08/24/17 06:00 71 08/24/17 05:00 68 08/24/17 04:00 Nasal Cannula 2.00 08/24/17 04:00 98.2 70 18 136/82 (100) 97 08/24/17 04:00 70 08/24/17 03:00 72 08/24/17 02:00 75 08/24/17 01:00 72 08/24/17 00:00 98.8 82 20 119/73 (88) 98 08/24/17 00:00 Nasal Cannula 2.00 08/24/17 00:00 82 08/23/17 23:00 76 08/23/17 22:00 79 08/23/17 21:34 93 Nasal Cannula 2.00 08/23/17 21:00 70 08/23/17 20:00 98.6 73 20 126/88 (101) 96 08/23/17 20:00 73 08/23/17 20:00 Nasal Cannula 2.00 08/23/17 18:00 70 08/23/17 17:00 70 08/23/17 16:00 66 08/23/17 15:17 98.1 71 16 98/60 (73) 98 08/23/17 15:00 79 I/O 08/23/17 08/23/17 08/23/17 08/24/17 08/24/17 08/24/17 07:00 15:00 23:00 07:00 15:00 23:00 Intake Total 240 ml 720 ml 240 ml 50 ml Output Total 1125 ml 1350 ml 900 ml Balance -885 ml -630 ml -660 ml 50 ml Intake Oral 240 ml 720 ml 240 ml IV Total 50 ml Output Urine Total 1125 ml 1350 ml 900 ml # Bowel Movements 0 Result Diagram: 08/24/17 0504 08/24/17 0504 Imaging Chest X-Ray 08/23/17 0000 Signed Impressions: CONCLUSION: Stable appearance with no acute cardiopulmonary disease. There is no evidence o f pneumonia. Objective Remarks GENERAL: WN, WD male resting in bed in NAD. SKIN: Warm and dry. HEENT: AT/NC. Pupils equal and round. MMM. HEART: RRR no m/r/g. LUNGS: CTAB without wheezes or crackles. ABDOMEN: +BS, soft, NT, ND. EXTREMITIES: No LE edema. NEURO: Awake and alert. Nonfocal. PSYCH: Appropriate mood and affect. A/P Assessment and Plan 57 year old male with ischemic cardiomyopathy with AICD, CAD with 3V CABG, HTN, DM, and COPD admitted on 08/15 for severe, progressive exertional dyspnea as well as right second toe pain. He was found to have severe sepsis secondary to gangrene/infection of R second toe, NSTEMI with troponin 3.04, and CHF exacerbation with BNP >3000. Sepsis R second toe osteomyelitis, gangrene MSSA bacteremia - Acute sepsis component resolved - Afebrile, WBC down to 10.5 this AM - Blood culturse from 08/15-08/18 all growing MSSA - Blood cultures since 08/21 NG - Wound culture growing MSSA - ID following; recommend continuing IV Ancef 2 g IV Q8H x 6 weeks - No PICC until cleared by IV - Podiatry following; s/p 2nd toe amputation 08/20. WB as tolerated Ischemic cardiomyopathy CHF exacerbation NSTEMI AICD firing for VTACH (08/16) CAD with 3V CABG - Continue ASA, Entresto, Coreg - Continue statin - On heparin drip - Cardiology following Acute kidney injury - Improving - Continue to monitor - Avoid nephrotoxic agents Thrombocytopenia - Resolved - Likely secondary to infectious process - Heme/onc consulted earlier in course; HIT ab negative Diabetes mellitus, uncontrolled - A1c 9.6 - SSI per protocol; required 23 units yesterday - Increase Levemir to 10 units BID COPD - Supplemental O2 and nebs PRN DVT prophylaxis: on heparin gtt Discharge Planning Possibly D/C 08/26 if cleared by podiatry. ID working on OP antibiotic forms Cathleen Herrera MD Aug 24, 2017 14:43
[2017-08-24] MEDS: INSULIN DETEMIR 100 UNITS/ML VIAL SQ SCH (20:33)
--- NOTE | 2017-08-24 22:13 | PD.POD ---
Subjective Podiatric Problems Gangrene right 2nd toe Pain score: 0 Past Med/Surg/Social History Social History Smoking Status: Former Smoker Objective Vital Signs Vital Signs Date Time Temp Pulse Resp B/P (MAP) Pulse Ox O2 Delivery O2 Flow Rate FiO2 08/24/17 21:52 98 Nasal Cannula 2.00 08/24/17 20:00 Nasal Cannula 2.00 08/24/17 18:00 76 08/24/17 17:00 66 08/24/17 16:00 70 08/24/17 15:00 98.2 66 16 133/71 (91) 98 08/24/17 15:00 76 08/24/17 14:00 70 08/24/17 13:00 90 08/24/17 12:00 68 08/24/17 11:16 98.0 78 16 101/56 (71) 98 08/24/17 11:00 76 08/24/17 10:00 68 08/24/17 09:00 68 08/24/17 08:00 56 08/24/17 07:43 95 Nasal Cannula 2.00 08/24/17 07:30 Room Air 08/24/17 07:30 68 08/24/17 07:30 98.7 72 16 91/57 (68) 98 08/24/17 06:00 71 08/24/17 05:00 68 08/24/17 04:00 Nasal Cannula 2.00 08/24/17 04:00 98.2 70 18 136/82 (100) 97 08/24/17 04:00 70 08/24/17 03:00 72 08/24/17 02:00 75 08/24/17 01:00 72 08/24/17 00:00 98.8 82 20 119/73 (88) 98 08/24/17 00:00 Nasal Cannula 2.00 08/24/17 00:00 82 08/23/17 23:00 76 Coded Allergies: potassium iodide (Unverified Allergy, Severe, Swelling, 06/12/17) povidone-iodine (Unverified Allergy, Severe, Swelling, 06/12/17) shellfish derived (Unverified Allergy, Severe, 06/12/17) sodium iodide (Unverified Allergy, Severe, Swelling, 06/12/17) sodium iodide (Unverified Allergy, Severe, Swelling, 06/12/17) Assessment & Plan A/P Gangrene right 2nd toe, s/p amputation R 2nd toe 08/20/17 Dr Goldman Clear for discharge from podiatry standpoint. Keep clean, dry, intact Orders for nursing to change every 5 days with dry sterile dressing. nursing to change bandage just prior to discharge. Weightbearing as tolerated in surgical shoe right foot. OK to remove shoe when in bed. Follow up in clinic 1 week after discharge for bandage change. Keep bandage he is discharged with intact until follow up. No home health dressings needed for foot. Ron Goldman DPM Aug 24, 2017 22:13
[2017-08-25] VITALS (28 sets, daily range): BP systolic 103–123; BP diastolic 57–72; PULSE 69–91; RESP 16–20; TEMP 98–98.7; O2SAT 94–100
[2017-08-25] MEDS: ceFAZolin 2 GM PREMIX 50 ML IV SCH ×3 (00:09→17:00)
[2017-08-25 04:53] LABS: BICARBONATE 24.4 MEQ/L (21.0-32.0); CALCIUM 8.8 MG/DL (8.5-10.1); CREATININE 0.9 MG/DL (0.60-1.30)
[2017-08-25 04:55] LABS: CHOLESTEROL/ HDL RATIO 3.8 RATIO
[2017-08-25] MEDS: INSULIN ASPART SUPPLEMENTAL SCALE SQ SCH ×4 (08:00→20:01)
[2017-08-25] MEDS: INSULIN DETEMIR 100 UNITS/ML VIAL SQ SCH ×2 (09:00→20:00)
[2017-08-25] MEDS: PANTOPRAZOLE SOD 40 MG DELAYED RELEASE TAB PO SCH (09:10)
[2017-08-25] MEDS: CARVEDILOL 6.25 MG TAB PO SCH ×2 (09:10→19:54)
[2017-08-25] MEDS: ASPIRIN 81 MG CHEW TAB CHEW SCH (09:10)
[2017-08-25] MEDS: SACUBITRIL/VALSARTAN 49 MG-51 MG TAB PO SCH ×2 (09:10→19:53)
[2017-08-25] MEDS: PRAVASTATIN SOD 40 MG TAB PO SCH (09:10)
[2017-08-25] MEDS: HEPARIN-D5W 25,000 U/250 ML 250 ML IV PRN ×2 (09:14→22:10)
--- NOTE | 2017-08-25 11:43 | PD.CARD.PN ---
Subjective Subjective Remarks appears comfortable in nad Objective Medications Current Medications Medications (Trade) Dose Ordered Sig/Erika Route Start Time Stop Time Status Last Admin (NS Flush) 2 ml UNSCH PRN IVF 08/15/17 10:00 08/19/17 08:31 (D50w (Vial) Inj) 50 ml UNSCH PRN IV PUSH 08/15/17 13:30 (Glucagon Inj) 1 mg UNSCH PRN OTHER 08/15/17 13:30 (NovoLOG SUPPLEMENTAL SCALE) 1 ACHS SLIDING SCALE SQ 08/15/17 17:00 08/25/17 11:40 (Pravachol) 40 mg DAILY PO 08/16/17 09:00 08/25/17 09:10 (Duoneb Neb) 1 ampule Q4HR NEB PRN NEB 08/15/17 13:45 08/15/17 15:38 (Tylenol) 650 mg Q4H PRN PO 08/15/17 14:30 08/18/17 11:45 (Morrow 5-325 Mg) 1 tab Q4H PRN PO 08/15/17 14:30 08/24/17 20:25 (Reglan Inj) 5 mg Q6H PRN IV PUSH 08/16/17 02:30 08/16/17 20:10 (Zofran Odt) 4 mg Q6H PRN PO 08/16/17 02:30 08/19/17 11:50 (Lopressor Inj) 5 mg Q5M PRN IV PUSH 08/16/17 02:45 08/16/17 03:06 (Tessalon) 100 mg TID PRN PO 08/17/17 03:00 08/20/17 02:00 (Robitussin Ac 200-20 Mg/10 ml Liq) 10 ml Q6H PRN PO 08/17/17 03:00 (Coreg) 6.25 mg Q12HR PO 08/17/17 11:30 08/25/17 09:10 (Entresto 49-51 Mg) 1 tab BID PO 08/17/17 21:00 08/25/17 09:10 Cefazolin Sodium/ Dextrose 50 ml @ 100 mls/hr Q8H IV 08/18/17 09:00 08/25/17 09:10 (Aspirin Chew) 81 mg DAILY CHEW 08/19/17 12:10 08/25/17 09:10 Heparin Sodium/ Dextrose 250 ml @ 16.128 mls/ hr TITRATE PRN IV 08/19/17 12:30 08/25/17 09:14 Sodium Chloride 1,000 ml @ 100 mls/hr Q10H IV 08/20/17 11:15 Future Hold 08/21/17 10:17 (Protonix) 40 mg DAILY PO 08/21/17 09:00 08/25/17 09:10 (Levemir Inj) 10 units Q12HR SQ 08/24/17 21:00 08/25/17 09:00 Vital Signs / I&O Vital Signs Date Time Temp Pulse Resp B/P (MAP) Pulse Ox O2 Delivery O2 Flow Rate FiO2 08/25/17 10:26 94 Nasal Cannula 2.00 08/25/17 07:30 98 Nasal Cannula 2.00 08/25/17 07:30 98.7 82 18 109/62 (78) 98 08/25/17 07:00 76 08/25/17 06:00 72 08/25/17 05:00 76 08/25/17 04:00 77 08/25/17 03:54 98.0 77 18 111/72 (85) 96 08/25/17 03:54 Nasal Cannula 2.00 08/25/17 03:00 75 08/25/17 02:00 71 08/25/17 01:00 70 08/25/17 00:00 69 08/25/17 00:00 Nasal Cannula 2.00 08/25/17 00:00 98.1 69 18 123/67 (85) 95 08/24/17 23:00 72 08/24/17 22:00 71 08/24/17 21:52 98 Nasal Cannula 2.00 08/24/17 21:00 74 08/24/17 20:00 83 08/24/17 20:00 98.4 83 18 120/72 (88) 97 08/24/17 20:00 Nasal Cannula 2.00 08/24/17 18:00 76 08/24/17 17:00 66 08/24/17 16:00 70 08/24/17 15:00 98.2 66 16 133/71 (91) 98 08/24/17 15:00 76 08/24/17 14:00 70 08/24/17 13:00 90 08/24/17 12:00 68 I/O 08/24/17 08/24/17 08/24/17 08/25/17 08/25/17 08/25/17 07:00 15:00 23:00 07:00 15:00 23:00 Intake Total 240 ml 230 ml 860 ml 470 ml Output Total 900 ml 1300 ml 1900 ml Balance -660 ml 230 ml -440 ml -1430 ml Intake Oral 240 ml 860 ml 240 ml IV Total 230 ml 230 ml Output Urine Total 900 ml 1300 ml 1900 ml # Bowel Movements 0 0 Physical Exam GENERAL: SKIN: Warm and dry. HEAD: Normocephalic. EYES: No scleral icterus. No injection or drainage. NECK: Supple, trachea midline. No JVD or lymphadenopathy. CARDIOVASCULAR: Regular rate and rhythm without murmurs, gallops, or rubs. RESPIRATORY: Breath sounds equal bilaterally. No accessory muscle use. GASTROINTESTINAL: Abdomen soft, non-tender, nondistended. MUSCULOSKELETAL: No cyanosis, or edema. BACK: Nontender without obvious deformity. No CVA tenderness. Laboratory Laboratory Tests Test 08/25/17 04:03 Activated Partial Thromboplast Time 52.2 SEC Blood Urea Nitrogen 21 MG/DL Creatinine 0.90 MG/DL Random Glucose 269 MG/DL Calcium Level 8.8 MG/DL Sodium Level 132 MEQ/L Potassium Level 4.9 MEQ/L Chloride Level 97 MEQ/L Carbon Dioxide Level 24.4 MEQ/L Anion Gap 11 MEQ/L Estimat Glomerular Filtration Rate 86 ML/MIN B-Type Natriuretic Peptide 254 PG/ML Triglycerides Level 122 MG/DL Cholesterol Level 99 MG/DL LDL Cholesterol 49 MG/DL HDL Cholesterol 26.0 MG/DL Cholesterol/HDL Ratio 3.80 RATIO Assessment and Plan Problem List: (1) ARF (acute renal failure) ICD Codes: N17.9 - Acute kidney failure, unspecified (2) NSTEMI (non-ST elevated myocardial infarction) ICD Codes: I21.4 - Non-ST elevation (NSTEMI) myocardial infarction (3) CAD (coronary artery disease) ICD Codes: I25.10 - Atherosclerotic heart disease of [place] coronary artery without angina pectoris (4) Decreased cardiac ejection fraction ICD Codes: R93.1 - Abnormal findings on diagnostic imaging of heart and coronary circulation (5) Elevated troponin ICD Codes: R74.8 - Abnormal levels of other serum enzymes (6) Severe sepsis ICD Codes: A41.9 - Sepsis, unspecified organism; R65.20 - Severe sepsis without septic shock (7) Diabetes mellitus ICD Codes: E11.9 - Type 2 diabetes mellitus without complications (8) Acute renal failure ICD Codes: N17.9 - Acute kidney failure, unspecified (9) Cardiomyopathy ICD Codes: I42.9 - Cardiomyopathy, unspecified (10) gangrene of the right second toe (11) Dyspnea and respiratory abnormalities ICD Codes: R06.00 - Dyspnea, unspecified; R06.89 - Other abnormalities of breathing (12) Multi-vessel coronary artery stenosis ICD Codes: I25.10 - Atherosclerotic heart disease of [place] coronary artery without angina pectoris (13) Hx of CABG ICD Codes: Z95.1 - Presence of aortocoronary bypass graft (14) Thrombocytopenia ICD Codes: D69.6 - Thrombocytopenia, unspecified Assessment and Plan 1.) Ischemic cardiomyopathy - nstemi, chf excacerbation and arf due to severe unrevascularizable cad, cardiomyopathy, on aspirin and heparin per hematology, on antibiotics, pod # 5, 2nd toe amputation, stable; entresto added, f/u bnp/ bmp 2.) VT - replete electrolytes, on coreg; d/w case management further attempts to insure and obtain eligibility for referral to heart transplant center Garrett Henao MD Aug 25, 2017 11:42
--- NOTE | 2017-08-25 12:54 | HHI.PR ---
Subjective Remarks Pt seen and examined. AFVSS. No acute events overnight. Denies any acute concerns except for occasional leg cramps. Denies CP, abdominal pain, fever, chills. Feels like he is breathing better though still with HOWELL. Objective Vital Signs Date Time Temp Pulse Resp B/P (MAP) Pulse Ox O2 Delivery O2 Flow Rate FiO2 08/25/17 12:00 80 08/25/17 11:36 98.4 76 16 103/57 (72) 100 08/25/17 11:00 74 08/25/17 10:26 94 Nasal Cannula 2.00 08/25/17 10:00 76 08/25/17 09:00 86 08/25/17 08:00 76 08/25/17 07:30 98 Nasal Cannula 2.00 08/25/17 07:30 98.7 82 18 109/62 (78) 98 08/25/17 07:00 76 08/25/17 06:00 72 08/25/17 05:00 76 08/25/17 04:00 77 08/25/17 03:54 98.0 77 18 111/72 (85) 96 08/25/17 03:54 Nasal Cannula 2.00 08/25/17 03:00 75 08/25/17 02:00 71 08/25/17 01:00 70 08/25/17 00:00 69 08/25/17 00:00 Nasal Cannula 2.00 08/25/17 00:00 98.1 69 18 123/67 (85) 95 08/24/17 23:00 72 08/24/17 22:00 71 08/24/17 21:52 98 Nasal Cannula 2.00 08/24/17 21:00 74 08/24/17 20:00 83 08/24/17 20:00 98.4 83 18 120/72 (88) 97 08/24/17 20:00 Nasal Cannula 2.00 08/24/17 18:00 76 08/24/17 17:00 66 08/24/17 16:00 70 08/24/17 15:00 98.2 66 16 133/71 (91) 98 08/24/17 15:00 76 08/24/17 14:00 70 08/24/17 13:00 90 I/O 6/2/18 6/2/18 08/24/17 08/25/17 08/25/17 08/25/17 07:00 15:00 23:00 07:00 15:00 23:00 Intake Total 240 ml 230 ml 860 ml 470 ml Output Total 900 ml 1300 ml 1900 ml Balance -660 ml 230 ml -440 ml -1430 ml Intake Oral 240 ml 860 ml 240 ml IV Total 230 ml 230 ml Output Urine Total 900 ml 1300 ml 1900 ml # Bowel Movements 0 0 Result Diagram: 08/24/17 0504 08/25/17 0403 Objective Remarks GENERAL: WN, WD male resting in bed in NAD. SKIN: Warm and dry. Multiple tattoos over extremities. HEENT: AT/NC. Pupils equal and round. MMM. HEART: RRR no m/r/g. LUNGS: CTAB without wheezes or crackles. ABDOMEN: +BS, soft, NT, ND. EXTREMITIES: No LE edema. R foot in post-op boot. Wiggles all toes. NEURO: Awake and alert. Nonfocal. PSYCH: Appropriate mood and affect. A/P Assessment and Plan 57 year old male with ischemic cardiomyopathy with AICD, CAD with 3V CABG, HTN, DM, and COPD admitted on 08/15 for severe, progressive exertional dyspnea as well as right second toe pain. He was found to have severe sepsis secondary to gangrene/infection of R second toe, NSTEMI with troponin 3.04, and CHF exacerbation with BNP >3000. Sepsis R second toe osteomyelitis, gangrene MSSA bacteremia - Acute sepsis component resolved - Afebrile, no leukocytosis - Blood culture from 08/15-08/18 all growing MSSA - Blood cultures since 08/21 NG - Wound culture growing MSSA - ID following; recommend continuing IV Ancef 2 g IV Q8H x 6 weeks - No PICC until cleared by ID - Podiatry following; s/p 2nd toe amputation 08/20. WB as tolerated. Cleared per podiatry Ischemic cardiomyopathy CHF exacerbation NSTEMI AICD firing for VTACH (08/16) CAD with 3V CABG - Continue ASA, Entresto, Coreg - Continue statin - Still on heparin drip, will need to see if this needs to be converted to OAC or if this can be discontinued - Cardiology following Acute kidney injury - Resolved - Avoid nephrotoxic agents Thrombocytopenia - Resolved - Likely secondary to infectious process - Heme/onc consulted earlier in course; HIT ab negative Diabetes mellitus, uncontrolled - A1c 9.6 - SSI per protocol; required 28 units yesterday - Increase Levemir to 15 units BID COPD - Supplemental O2 and nebs PRN DVT prophylaxis: on heparin gtt Discharge Planning Cleared by podiatry, possibly tomorrow if IV antibiotics can be arranged Cathleen Herrera MD Aug 25, 2017 12:54
--- NOTE | 2017-08-25 12:56 | HHI.FF ---
Face to Face Verification Diagnosis: (1) Osteomyelitis of toe of right foot (2) MSSA bacteremia (3) Ischemic cardiomyopathy Home Health Nursing Order: Signs/symptoms of disease process Wound care and dressing changes Nursing assessment with vital signs I have seen patient Stanton Estrada on 08/25/17. My clinical findings support the need for the requested home health care services because: Infection w/ risk of complications Injectable med education/admin I certify that my clinical findings support that this patient is homebound because: Poor cardiac reserve Cathleen Herrera MD Aug 25, 2017 12:56
--- NOTE | 2017-08-25 19:11 | MP ---
cc: Ron Goldman DPM DATE OF OPERATION: 08/20/2017 INDICATIONS FOR PROCEDURE: The patient presented with gangrene and osteomyelitis of the right second toe. He was noted to have necrotic tissue of the entire digit, with foul odor noted. However, the margins were noted to be clean, without purulent drainage. I discussed with the patient the risks, benefits and potential complications of surgery. He agreed to undergo amputation of right second toe. DESCRIPTION OF PROCEDURE: He was seen in preop holding by myself, nursing staff and anesthesia, where the correct patient, side and site were all confirmed to be correct. He was then taken to the surgical suite in supine position. The right foot was prepped and draped in normal sterile fashion followed by timeout as per facility protocol. Following this, attention was directed to the right second toe, where there was noted to be necrotic tissue to the entire digit, with foul odor and clean margins. Two semi-elliptical incisions were made in order to disarticulate the digit in its entirety at the metatarsophalangeal joint level. The second metatarsal head was noted to be healthy and white, with minimal bleeding noted within the wound. No purulence was noted. A culture was taken, however, prior to irrigation with normal saline and primary closure with 2-0 nylon suture. Dressing consisting of Xeroform, 4 x 4's, cast padding and Fabrice bandage was applied to the right lower extremity. He tolerated the procedure and anesthesia well without complications and will be weightbearing as tolerated to the right heel in a surgical shoe for transfers only. SHORT OPERATIVE NOTE SURGEON: Ron Goldman DPM LEARNING AND DEVELOPMENT MANAGER: Staff. PREOPERATIVE DIAGNOSIS: Gangrene with osteomyelitis, right second toe. POSTOPERATIVE DIAGNOSIS: Gangrene with osteomyelitis, right second toe. PROCEDURE PERFORMED: Amputation, right second toe. PATHOLOGY: 1. Toe, right second, to pathology. 2. Culture, right foot. ESTIMATED BLOOD LOSS: Minimal. ANESTHESIA: MAC with local consisting of 10 mL of 2% lidocaine plain. TOURNIQUET TIME: No tourniquet utilized. CONDITION: Stable to PACU. DISPOSITION: Weightbearing as tolerated to the heel and surgical shoe for transfers only. ESTIMATED BLOOD LOSS: Minimal. SHARON Ball , 05:47 PM , 07:10 PM
[2017-08-25] MEDS: ACETAMINOPHEN/HYDROcodone 325 MG/5 MG TAB PO PRN (19:53)
[2017-08-25] MEDS: SODIUM CHLORIDE 0.9% FLUSH 10 ML FLUSH IVF PRN (19:53)
[2017-08-26] VITALS (24 sets, daily range): BP systolic 100–128; BP diastolic 55–73; PULSE 61–83; RESP 16–20; TEMP 97.8–98.4; O2SAT 96–99
[2017-08-26] MEDS: ceFAZolin 2 GM PREMIX 50 ML IV SCH ×3 (00:02→16:15)
[2017-08-26] MEDS: ACETAMINOPHEN/HYDROcodone 325 MG/5 MG TAB PO PRN ×4 (06:13→20:14)
[2017-08-26 07:11] LABS: BICARBONATE 25.3 MEQ/L (21.0-32.0); CALCIUM 8.6 MG/DL (8.5-10.1); CREATININE 0.79 MG/DL (0.60-1.30)
[2017-08-26] MEDS: INSULIN ASPART SUPPLEMENTAL SCALE SQ SCH ×4 (08:19→20:12)
[2017-08-26] MEDS: INSULIN DETEMIR 100 UNITS/ML VIAL SQ SCH ×2 (08:19→20:12)
[2017-08-26] MEDS: PANTOPRAZOLE SOD 40 MG DELAYED RELEASE TAB PO SCH (08:20)
[2017-08-26] MEDS: PRAVASTATIN SOD 40 MG TAB PO SCH (08:20)
[2017-08-26] MEDS: SACUBITRIL/VALSARTAN 49 MG-51 MG TAB PO SCH ×2 (08:20→20:11)
[2017-08-26] MEDS: CARVEDILOL 6.25 MG TAB PO SCH ×2 (08:20→20:11)
[2017-08-26] MEDS: ASPIRIN 81 MG CHEW TAB CHEW SCH (08:20)
--- NOTE | 2017-08-26 13:47 | HHI.IDPN ---
Subjective Subjective Remarks is a 57 y/o CM with PMHx of CHF, Ischemic Cardiomyopathy with last reported EF 20-25%, he has prior h/o CABG x 3, defibrillator and pacemaker, DM, HTN and hyperlipidemia. CT surgery evaluated and found him not to be a revascularization candidate and recommended referral to a tertiary center for transplant consideration. As the patient has no insurance this option has not been found feasible. He underwent placement of a single-chamber [place] ICD in May 2017 for sudden cardiac prevention. With this background patient presents to the ED at [facility] with 4 day history of progressive dyspnea described as severe, worsening with exertion, and improved with rest. He has had associated symptoms of diaphoresis, nausea and vomiting over the weekend. He additionally has noted painful changes in his right second toe with color changes suspicious for infection. In ED patient was noted to have WBC 9.6, hemoglobin 15.0, hematocrit 43.9, platelets 133, sodium 130, potassium 4.4, BUN 36, creatinine 1.84, random glucose 407 alkaline phosphatase 114, AST 37, ALT 25, total bilirubin 0.9, troponin 3.04, C-reactive protein 26.8, B natruretic peptide 3148, lactic acid 5.5. Ax Xray of Rt toe showed erosion. MRI with no osteomyelitis. Chest x-ray showed no acute abnormality or significant interval change. 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 He states that he is only able to be active for 5-10 minutes before becoming very dyspneic and exhausted. 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 He is now attempting to get disability as he has a nearly homebound existence and requires assistance to get out to doctor's appointments. Sepsis workup on admission positive for Staph bacteremia and ID consulted for evaluation and Mment of the same. Notes reviewed Patient reports there was overnight some blood noticed at surgical site. On exam dried blood on dressing. Notified RN to call surgeon. no fever no rash no diarrhea S/P ICD placement May 2017 Antibiotics IV Ancef Lines PIV no evidence of infection Past Medical History Severe ischemic cardiomyopathy EF 20-25% Hyperlipidemia Diabetes Coronary artery disease status post NC 06/04 COPD Past Surgical History CABG 10 years ago Pacemaker/Defibrillator insertion Appendectomy Skin graft to right foot as a child Back surgeries 3 has hardware in back per report. Allergies: Coded Allergies: potassium iodide (Unverified Allergy, Severe, Swelling, 06/12/17) povidone-iodine (Unverified Allergy, Severe, Swelling, 06/12/17) shellfish derived (Unverified Allergy, Severe, 06/12/17) sodium iodide (Unverified Allergy, Severe, Swelling, 06/12/17) sodium iodide (Unverified Allergy, Severe, Swelling, 06/12/17) Objective . Vital Signs Date Time Temp Pulse Resp B/P (MAP) Pulse Ox O2 Delivery O2 Flow Rate FiO2 08/26/17 13:06 20 08/26/17 12:00 65 08/26/17 12:00 98.2 77 18 114/69 (84) 98 08/26/17 11:35 97 2.00 08/26/17 11:00 68 08/26/17 10:00 72 08/26/17 09:00 80 08/26/17 08:00 98.0 68 16 122/66 (84) 97 08/26/17 08:00 80 08/26/17 07:44 Room Air 08/26/17 07:00 78 08/26/17 06:00 70 08/26/17 05:00 74 08/26/17 04:00 71 08/26/17 04:00 Nasal Cannula 2.00 08/26/17 04:00 98.4 71 20 100/56 (71) 97 08/26/17 03:00 70 08/26/17 02:00 71 08/26/17 01:00 74 08/26/17 00:00 98.1 77 16 104/55 (71) 96 08/26/17 00:00 Nasal Cannula 2.00 08/26/17 00:00 77 08/25/17 23:00 79 08/25/17 22:00 85 08/25/17 21:30 98 Nasal Cannula 2.00 08/25/17 21:00 87 08/25/17 20:00 Nasal Cannula 2.00 08/25/17 20:00 98.4 91 20 111/62 (78) 96 08/25/17 20:00 91 08/25/17 18:00 88 08/25/17 17:00 72 08/25/17 16:00 70 08/25/17 15:00 76 08/25/17 15:00 98.6 78 18 106/58 (74) 97 08/25/17 14:00 76 . Laboratory Tests Test 08/25/17 04:03 08/26/17 05:53 Blood Urea Nitrogen 21 MG/DL 22 MG/DL Creatinine 0.90 MG/DL 0.79 MG/DL Random Glucose 269 MG/DL 211 MG/DL Calcium Level 8.8 MG/DL 8.6 MG/DL Sodium Level 132 MEQ/L 132 MEQ/L Potassium Level 4.9 MEQ/L 4.8 MEQ/L Chloride Level 97 MEQ/L 97 MEQ/L Carbon Dioxide Level 24.4 MEQ/L 25.3 MEQ/L Anion Gap 11 MEQ/L 10 MEQ/L Estimat Glomerular Filtration Rate 86 ML/MIN 100 ML/MIN B-Type Natriuretic Peptide 254 PG/ML 127 PG/ML Triglycerides Level 122 MG/DL Cholesterol Level 99 MG/DL LDL Cholesterol 49 MG/DL HDL Cholesterol 26.0 MG/DL Cholesterol/HDL Ratio 3.80 RATIO Imaging Last Impressions Aorta w/Runoff CTA 08/19/17 Signed Impressions: CONCLUSION: 1. Atherosclerotic changes without significant stenosis bilateral lower extrem ities. Chest X-Ray 08/15/17 0955 Signed Impressions: CONCLUSION: 1. No acute abnormality or significant interval change. Toe X-Ray 08/15/17 Signed Impressions: CONCLUSION: Questionable small erosion distal phalanx right second toe. This could be infec tious in nature if there is clinical evidence for soft tissue infection. Renal Ultrasound 08/15/17 Signed Impressions: CONCLUSION: 1. No hydronephrosis. 2. Increased echogenicity most characteristic of medical renal disease. Foot MRI 08/15/17 Signed Impressions: CONCLUSION: 1. No evidence for osteomyelitis. Soft tissue swelling at the second toe. Extremity Arterial Study 08/15/17 Signed Impressions: CONCLUSION: 1. Findings consistent with left outflow disease as well as small vessel disea se in the left foot. 2. Near normal range right ankle-brachial indices and segmental pressures. Physical Exam GENERAL: male patient, Asleep but easily awakens to voice. Appears comfortable. SKIN: No rashes or lesions. Warm and dry. HEAD: Atraumatic. Normocephalic. EYES: Pupils equal round and reactive. Extraocular motions intact. No scleral icterus. No injection or drainage. ENT: Nose without bleeding or purulent drainage. Airway patent. MMM. NECK: Trachea midline. Supple, nontender, no meningeal signs. CARDIOVASCULAR: HS audible. + ICD. RESPIRATORY: Nonlabored. Clear to auscultation. Breath sounds equal bilaterally. No wheezes, rales, or rhonchi. GASTROINTESTINAL: Abdomen soft, nontender to palpation. MUSCULOSKELETAL: No BLE edema appreciated. Right foot dressed, C/D/I, able to wiggles toes slightly on right foot. Decreased sensation but able to feel light touch on toes. NEUROLOGICAL: Awake and alert. Able to move all extremities spontaneously. Grossly non-focal. Normal speech. Psych calm and cooperative IV line sites with no e.o infection. Assessment & Plan Remarks Sepsis High grade MSSA bacteremia - source ?2nd toe, concern with ICD Right 2nd toe wet gangrene, osteomyelitis. Hepatitis C antibody positive. AICD status. CAD with severe ischemic cardiomyopathy. Thrombocytopenia likely due to severe infection Recs Continue IV Ancef Follow cultures until finalized Follow path Follow clinically Will need 6 weeks IV Ancef irrespective of bone path due to high grade bacteremia and AICD in place. No PICC till cleared by ID. Michelle Galan MD Aug 26, 2017 13:47
--- NOTE | 2017-08-26 14:45 | PD.CARD.PN ---
Subjective Subjective Remarks appears comfortable in nad Objective Medications Current Medications Medications (Trade) Dose Ordered Sig/Erika Route Start Time Stop Time Status Last Admin (NS Flush) 2 ml UNSCH PRN IVF 08/15/17 10:00 08/25/17 19:53 (D50w (Vial) Inj) 50 ml UNSCH PRN IV PUSH 08/15/17 13:30 (Glucagon Inj) 1 mg UNSCH PRN OTHER 08/15/17 13:30 (NovoLOG SUPPLEMENTAL SCALE) 1 ACHS SLIDING SCALE SQ 08/15/17 17:00 08/26/17 12:04 (Pravachol) 40 mg DAILY PO 08/16/17 09:00 08/26/17 08:20 (Duoneb Neb) 1 ampule Q4HR NEB PRN NEB 08/15/17 13:45 08/15/17 15:38 (Tylenol) 650 mg Q4H PRN PO 08/15/17 14:30 08/18/17 11:45 ([place] 5-325 Mg) 1 tab Q4H PRN PO 08/15/17 14:30 08/26/17 12:03 (Reglan Inj) 5 mg Q6H PRN IV PUSH 08/16/17 02:30 08/16/17 20:10 (Zofran Odt) 4 mg Q6H PRN PO 08/16/17 02:30 08/19/17 11:50 (Lopressor Inj) 5 mg Q5M PRN IV PUSH 08/16/17 02:45 08/16/17 03:06 (Tessalon) 100 mg TID PRN PO 08/17/17 03:00 08/20/17 02:00 (Robitussin Ac 200-20 Mg/10 ml Liq) 10 ml Q6H PRN PO 08/17/17 03:00 08/25/17 19:52 (Coreg) 6.25 mg Q12HR PO 08/17/17 11:30 08/26/17 08:20 (Entresto 49-51 Mg) 1 tab BID PO 08/17/17 21:00 08/26/17 08:20 Cefazolin Sodium/ Dextrose 50 ml @ 100 mls/hr Q8H IV 08/18/17 09:00 08/26/17 08:21 (Aspirin Chew) 81 mg DAILY CHEW 08/19/17 12:10 08/26/17 08:20 Heparin Sodium/ Dextrose 250 ml @ 16.128 mls/ hr TITRATE PRN IV 08/19/17 12:30 08/25/17 22:10 Sodium Chloride 1,000 ml @ 100 mls/hr Q10H IV 08/20/17 11:15 Future Hold 08/21/17 10:17 (Protonix) 40 mg DAILY PO 08/21/17 09:00 08/26/17 08:20 (Levemir Inj) 15 units Q12HR SQ 08/25/17 21:00 08/26/17 08:19 Vital Signs / I&O Vital Signs Date Time Temp Pulse Resp B/P (MAP) Pulse Ox O2 Delivery O2 Flow Rate FiO2 08/26/17 13:06 20 08/26/17 12:00 65 08/26/17 12:00 98.2 77 18 114/69 (84) 98 08/26/17 11:35 97 2.00 08/26/17 11:00 68 08/26/17 10:00 72 08/26/17 09:00 80 08/26/17 08:00 98.0 68 16 122/66 (84) 97 08/26/17 08:00 80 08/26/17 07:44 Room Air 08/26/17 07:00 78 08/26/17 06:00 70 08/26/17 05:00 74 08/26/17 04:00 71 08/26/17 04:00 Nasal Cannula 2.00 08/26/17 04:00 98.4 71 20 100/56 (71) 97 08/26/17 03:00 70 08/26/17 02:00 71 08/26/17 01:00 74 08/26/17 00:00 98.1 77 16 104/55 (71) 96 08/26/17 00:00 Nasal Cannula 2.00 08/26/17 00:00 77 08/25/17 23:00 79 08/25/17 22:00 85 08/25/17 21:30 98 Nasal Cannula 2.00 08/25/17 21:00 87 08/25/17 20:00 Nasal Cannula 2.00 08/25/17 20:00 98.4 91 20 111/62 (78) 96 08/25/17 20:00 91 08/25/17 18:00 88 08/25/17 17:00 72 08/25/17 16:00 70 08/25/17 15:00 76 08/25/17 15:00 98.6 78 18 106/58 (74) 97 I/O 08/25/17 08/25/17 08/25/17 08/26/17 08/26/17 08/26/17 07:00 15:00 23:00 07:00 15:00 23:00 Intake Total 470 ml 720 ml 470 ml Output Total 1900 ml 1500 ml 1300 ml Balance -1430 ml -780 ml -830 ml Intake Oral 240 ml 720 ml 240 ml IV Total 230 ml 230 ml Output Urine Total 1900 ml 1500 ml 1300 ml # Bowel Movements 0 0 Physical Exam GENERAL: SKIN: Warm and dry. HEAD: Normocephalic. EYES: No scleral icterus. No injection or drainage. NECK: Supple, trachea midline. No JVD or lymphadenopathy. CARDIOVASCULAR: Regular rate and rhythm without murmurs, gallops, or rubs. RESPIRATORY: Breath sounds equal bilaterally. No accessory muscle use. GASTROINTESTINAL: Abdomen soft, non-tender, nondistended. MUSCULOSKELETAL: No cyanosis, or edema. BACK: Nontender without obvious deformity. No CVA tenderness. Laboratory Laboratory Tests Test 08/26/17 05:53 Activated Partial Thromboplast Time 50.0 SEC Blood Urea Nitrogen 22 MG/DL Creatinine 0.79 MG/DL Random Glucose 211 MG/DL Calcium Level 8.6 MG/DL Sodium Level 132 MEQ/L Potassium Level 4.8 MEQ/L Chloride Level 97 MEQ/L Carbon Dioxide Level 25.3 MEQ/L Anion Gap 10 MEQ/L Estimat Glomerular Filtration Rate 100 ML/MIN B-Type Natriuretic Peptide 127 PG/ML Assessment and Plan Problem List: (1) ARF (acute renal failure) ICD Codes: N17.9 - Acute kidney failure, unspecified (2) NSTEMI (non-ST elevated myocardial infarction) ICD Codes: I21.4 - Non-ST elevation (NSTEMI) myocardial infarction (3) CAD (coronary artery disease) ICD Codes: I25.10 - Atherosclerotic heart disease of [place] coronary artery without angina pectoris (4) Decreased cardiac ejection fraction ICD Codes: R93.1 - Abnormal findings on diagnostic imaging of heart and coronary circulation (5) Elevated troponin ICD Codes: R74.8 - Abnormal levels of other serum enzymes (6) Severe sepsis ICD Codes: A41.9 - Sepsis, unspecified organism; R65.20 - Severe sepsis without septic shock (7) Diabetes mellitus ICD Codes: E11.9 - Type 2 diabetes mellitus without complications (8) Acute renal failure ICD Codes: N17.9 - Acute kidney failure, unspecified (9) Cardiomyopathy ICD Codes: I42.9 - Cardiomyopathy, unspecified (10) gangrene of the right second toe (11) Dyspnea and respiratory abnormalities ICD Codes: R06.00 - Dyspnea, unspecified; R06.89 - Other abnormalities of breathing (12) Multi-vessel coronary artery stenosis ICD Codes: I25.10 - Atherosclerotic heart disease of [place] coronary artery without angina pectoris (13) Hx of CABG ICD Codes: Z95.1 - Presence of aortocoronary bypass graft (14) Thrombocytopenia ICD Codes: D69.6 - Thrombocytopenia, unspecified Assessment and Plan 1.) Ischemic cardiomyopathy - nstemi, chf excacerbation and arf due to severe unrevascularizable cad, cardiomyopathy, on aspirin and heparin per hematology, on antibiotics, pod # 5, 2nd toe amputation, stable; entresto added, ok to dc from cv standpoint, f/u with me in office next day d/w nurse and patient 2.) VT - replete electrolytes, on coreg; d/w case management further attempts to insure and obtain eligibility for referral to heart transplant center 3.) PVD - d/w nurse, need to find out if from Dr Lopez if patient needs long term care pharmacist ac with coumadin for wound healing due to severe pvd, if not when to dc heparin Garrett Henao MD Aug 26, 2017 14:45
--- NOTE | 2017-08-26 18:10 | HHI.PR ---
Subjective Remarks Follow up for MSSA bacteremia, right second toe osteomyelitis. Patient is doing well. No fever, chills. Objective Vitals Vital Signs Date Time Temp Pulse Resp B/P (MAP) Pulse Ox O2 Delivery O2 Flow Rate FiO2 08/26/17 18:00 68 08/26/17 17:00 66 08/26/17 16:55 20 08/26/17 16:00 61 08/26/17 16:00 97.8 65 18 128/73 (91) 98 08/26/17 15:00 68 08/26/17 14:00 66 08/26/17 13:00 70 08/26/17 12:00 65 08/26/17 12:00 98.2 77 18 114/69 (84) 98 08/26/17 11:35 97 2.00 08/26/17 11:00 68 08/26/17 10:00 72 08/26/17 09:00 80 08/26/17 08:00 98.0 68 16 122/66 (84) 97 08/26/17 08:00 80 08/26/17 07:44 Room Air 08/26/17 07:00 78 08/26/17 06:00 70 08/26/17 05:00 74 08/26/17 04:00 71 08/26/17 04:00 Nasal Cannula 2.00 08/26/17 04:00 98.4 71 20 100/56 (71) 97 08/26/17 03:00 70 08/26/17 02:00 71 08/26/17 01:00 74 08/26/17 00:00 98.1 77 16 104/55 (71) 96 08/26/17 00:00 Nasal Cannula 2.00 08/26/17 00:00 77 08/25/17 23:00 79 08/25/17 22:00 85 08/25/17 21:30 98 Nasal Cannula 2.00 08/25/17 21:00 87 08/25/17 20:00 Nasal Cannula 2.00 08/25/17 20:00 98.4 91 20 111/62 (78) 96 08/25/17 20:00 91 I/O 08/25/17 08/25/17 08/25/17 08/26/17 08/26/17 08/26/17 07:00 15:00 23:00 07:00 15:00 23:00 Intake Total 470 ml 720 ml 470 ml Output Total 1900 ml 1500 ml 1300 ml Balance -1430 ml -780 ml -830 ml Intake Oral 240 ml 720 ml 240 ml IV Total 230 ml 230 ml Output Urine Total 1900 ml 1500 ml 1300 ml # Bowel Movements 0 0 Result Diagram: 08/24/17 0504 08/26/17 0553 Imaging Last Impressions Chest X-Ray 08/23/17 Signed Impressions: CONCLUSION: Stable appearance with no acute cardiopulmonary disease. There is no evidence o f pneumonia. Aorta w/Runoff CTA 08/19/17 Signed Impressions: CONCLUSION: 1. Atherosclerotic changes without significant stenosis bilateral lower extrem ities. Toe X-Ray 08/15/17 Signed Impressions: CONCLUSION: Questionable small erosion distal phalanx right second toe. This could be infec tious in nature if there is clinical evidence for soft tissue infection. Renal Ultrasound 08/15/17 Signed Impressions: CONCLUSION: 1. No hydronephrosis. 2. Increased echogenicity most characteristic of medical renal disease. Foot MRI 08/15/17 Signed Impressions: CONCLUSION: 1. No evidence for osteomyelitis. Soft tissue swelling at the second toe. Extremity Arterial Study 08/15/17 Signed Impressions: CONCLUSION: 1. Findings consistent with left outflow disease as well as small vessel disea se in the left foot. 2. Near normal range right ankle-brachial indices and segmental pressures. Objective Remarks GENERAL: Alert, NAD SKIN: Warm and dry. HEAD: Normocephalic. EYES: No scleral icterus. No injection or drainage. NECK: Supple, trachea midline. No JVD or lymphadenopathy. CARDIOVASCULAR: Regular rate and rhythm without murmurs, gallops, or rubs. RESPIRATORY: Breath sounds equal bilaterally. No accessory muscle use. GASTROINTESTINAL: Abdomen soft, non-tender, nondistended. MUSCULOSKELETAL: No cyanosis, or edema. right foot dressing in place. BACK: Nontender without obvious deformity. No CVA tenderness. Procedures August 20, 2017 Pre Op Diagnosis: gangrene with osteomyelitis right 2nd toe Post Op Diagnosis: same Surgeon: Ron Goldman DPM Art History Instructor(s): Staff Procedure: amputation right 2nd toe Findings: Consistent with diagnosis. Right 2nd toe with necrotic tissue to entire digit. Foul odor slightly present. Margins clean without purulence. Two semi-elliptical incisions made to disarticulate digit in its entirety at metatarsophalangeal joint level. 2nd metatarsal head with white healthy cartilage cap. No purulence noted. Culture taken prior to irrigation and primary closure with 2-0 nylon suture. Dressing with xeroform, 4x4, cast padding, livia. Weightbearing as tolerated to heel in surgical shoe for transfers only. Additional Information: see findings Complications: none Specimen(s) removed: 1. toe right 2nd 2. culture right foot Estimated blood loss: minimal Anesthesia: MAC, Local (10mL 2% lidocaine plain) Drains: None Tourniquet time (min at mmHg) n/a Patient to: PACU Patient Condition: Good Date/Time of Procedure: SEE SURGICAL CARE RECORD Ron Goldman DPAnnmarie A/P Problem List: (1) Severe sepsis ICD Code: A41.9 - Sepsis, unspecified organism; R65.20 - Severe sepsis without septic shock (2) Elevated troponin ICD Code: R74.8 - Abnormal levels of other serum enzymes (3) gangrene of the right second toe Assessment and Plan 57 year old male with ischemic cardiomyopathy with AICD, CAD with 3V CABG, HTN, DM, and COPD admitted on 08/15 for severe, progressive exertional dyspnea as well as right second toe pain. He was found to have severe sepsis secondary to gangrene/infection of R second toe, NSTEMI with troponin 3.04, and CHF exacerbation with BNP >3000. Sepsis R second toe osteomyelitis, gangrene MSSA bacteremia - Acute sepsis component resolved - Afebrile, no leukocytosis - Blood culture from 08/15-08/18 all growing MSSA - Blood cultures since 08/21 NG - Wound culture growing MSSA - ID following; recommend continuing IV Ancef 2 g IV Q8H x 6 weeks - ID cleared for discharge with IV abx recommendations. - Podiatry following; s/p 2nd toe amputation 08/20. WB as tolerated. Cleared per podiatry - Appreciate podiatry recommendations. Ischemic cardiomyopathy CHF exacerbation NSTEMI AICD firing for VTACH (08/16) CAD with 3V CABG - Continue ASA, Entresto, Coreg - Continue statin - Based on Vascular surgery note, no clear indication for heparin drip. Will d/ c Heparin drip. Acute kidney injury - Resolved - Avoid nephrotoxic agents Thrombocytopenia - Resolved - Likely secondary to infectious process - Heme/onc consulted earlier in course; HIT ab negative Diabetes mellitus, uncontrolled - A1c 9.6 - SSI per protocol; required 28 units yesterday - Increased Levemir to 15 units BID in the hospital - Continue Metformin and Glyburide upon discharge. COPD - Supplemental O2 and nebs PRN Full code. Mnaan Sosa DO Aug 26, 2017 18:10
[2017-08-27] VITALS (22 sets, daily range): BP systolic 103–125; BP diastolic 60–76; PULSE 61–87; RESP 16–20; TEMP 97.8–98.6; O2SAT 97–99
[2017-08-27] MEDS: ceFAZolin 2 GM PREMIX 50 ML IV SCH ×3 (01:03→16:38)
[2017-08-27] MEDS: ACETAMINOPHEN/HYDROcodone 325 MG/5 MG TAB PO PRN ×4 (01:03→18:28)
[2017-08-27 06:32] LABS: HEMATOCRIT 37.9 % (39.0-51.0); HEMOGLOBIN 12.8 GM/DL (13.0-17.0); MEAN CELL VOLUME 81.7 FL (80.0-100.0); MEAN CORPUSCULAR HEMOGLOBIN 27.6 PG (27.0-34.0); MEAN CORPUSCULAR HGB CONC 33.8 % (32.0-36.0); MEAN PLATELET VOLUME 7.8 FL (7.0-11.0); PLATELET COUNT 308 TH/MM3 (150-450); RED BLOOD COUNT 4.64 MIL/MM3 (4.50-5.90); RED CELL DISTRIBUTION WIDTH 17.1 % (11.6-17.2); WHITE BLOOD COUNT 8.8 TH/MM3 (4.0-11.0)
[2017-08-27 07:07] LABS: BICARBONATE 23.7 MEQ/L (21.0-32.0); CREATININE 0.84 MG/DL (0.60-1.30); MAGNESIUM 2.3 MG/DL (1.5-2.5)
[2017-08-27] MEDS: INSULIN ASPART SUPPLEMENTAL SCALE SQ SCH ×3 (08:00→17:00)
[2017-08-27] MEDS: INSULIN DETEMIR 100 UNITS/ML VIAL SQ SCH (08:12)
[2017-08-27] MEDS: PRAVASTATIN SOD 40 MG TAB PO SCH (08:13)
[2017-08-27] MEDS: SACUBITRIL/VALSARTAN 49 MG-51 MG TAB PO SCH (08:13)
[2017-08-27] MEDS: CARVEDILOL 6.25 MG TAB PO SCH (08:13)
[2017-08-27] MEDS: PANTOPRAZOLE SOD 40 MG DELAYED RELEASE TAB PO SCH (08:13)
[2017-08-27] MEDS: ASPIRIN 81 MG CHEW TAB CHEW SCH (08:14)
--- NOTE | 2017-08-27 12:36 | HHI.IDPN ---
Subjective Subjective Remarks is a 57 y/o CM with PMHx of CHF, Ischemic Cardiomyopathy with last reported EF 20-25%, he has prior h/o CABG x 3, defibrillator and pacemaker, DM, HTN and hyperlipidemia. CT surgery evaluated and found him not to be a revascularization candidate and recommended referral to a tertiary center for transplant consideration. As the patient has no insurance this option has not been found feasible. He underwent placement of a single-chamber [place] ICD in May 2017 for sudden cardiac prevention. With this background patient presents to the ED at [place] with 4 day history of progressive dyspnea described as severe, worsening with exertion, and improved with rest. He has had associated symptoms of diaphoresis, nausea and vomiting over the weekend. He additionally has noted painful changes in his right second toe with color changes suspicious for infection. In ED patient was noted to have WBC 9.6, hemoglobin 15.0, hematocrit 43.9, platelets 133, sodium 130, potassium 4.4, BUN 36, creatinine 1.84, random glucose 407 alkaline phosphatase 114, AST 37, ALT 25, total bilirubin 0.9, troponin 3.04, C-reactive protein 26.8, B natruretic peptide 3148, lactic acid 5.5. Ax Xray of Rt toe showed erosion. MRI with no osteomyelitis. Chest x-ray showed no acute abnormality or significant interval change. 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 He states that he is only able to be active for 5-10 minutes before becoming very dyspneic and exhausted. 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 He is now attempting to get disability as he has a nearly homebound existence and requires assistance to get out to doctor's appointments. Sepsis workup on admission positive for Staph bacteremia and ID consulted for evaluation and Mment of the same. Notes reviewed Patient reports no further bleeding issues overnight. made aware of the bleeding issue. Nestor RN and Dr.Ahmad guevara RN to call for dressing change instructions etc. no fever no rash no diarrhea S/P ICD placement May 2017 Antibiotics IV Ancef Lines PIV no evidence of infection Past Medical History Severe ischemic cardiomyopathy EF 20-25% Hyperlipidemia Diabetes Coronary artery disease status post OR 06/04 COPD Past Surgical History CABG 10 years ago Pacemaker/Defibrillator insertion Appendectomy Skin graft to right foot as a child Back surgeries 3 has hardware in back per report. Allergies: Coded Allergies: potassium iodide (Unverified Allergy, Severe, Swelling, 06/12/17) povidone-iodine (Unverified Allergy, Severe, Swelling, 06/12/17) shellfish derived (Unverified Allergy, Severe, 06/12/17) sodium iodide (Unverified Allergy, Severe, Swelling, 06/12/17) sodium iodide (Unverified Allergy, Severe, Swelling, 06/12/17) Objective . Vital Signs Date Time Temp Pulse Resp B/P (MAP) Pulse Ox O2 Delivery O2 Flow Rate FiO2 08/27/17 10:00 80 08/27/17 09:00 73 08/27/17 08:35 97 Room Air 08/27/17 08:35 98.5 74 16 107/72 (84) 97 08/27/17 08:00 70 08/27/17 07:00 68 08/27/17 06:00 80 08/27/17 05:00 72 08/27/17 04:00 68 08/27/17 04:00 97.8 77 20 103/60 (74) 99 08/27/17 03:00 74 08/27/17 02:00 82 08/27/17 01:00 78 08/27/17 00:00 87 08/27/17 00:00 97.8 77 20 121/73 (89) 97 08/26/17 23:00 80 08/26/17 22:00 82 08/26/17 21:40 21 08/26/17 21:00 82 08/26/17 20:00 98.0 83 20 101/57 (72) 99 08/26/17 20:00 81 08/26/17 20:00 Room Air 08/26/17 18:00 68 08/26/17 17:00 66 08/26/17 16:55 20 08/26/17 16:00 61 08/26/17 16:00 97.8 65 18 128/73 (91) 98 08/26/17 15:00 68 08/26/17 14:00 66 08/26/17 13:00 70 08/27/17 08/27/17 08/28/17 15:00 23:00 07:00 Intake Total 50 ml Balance 50 ml IV Total 50 ml . Laboratory Tests Test 08/27/17 06:10 White Blood Count 8.8 TH/MM3 Red Blood Count 4.64 MIL/MM3 Hemoglobin 12.8 GM/DL Hematocrit 37.9 % Mean Corpuscular Volume 81.7 FL Mean Corpuscular Hemoglobin 27.6 PG Mean Corpuscular Hemoglobin Concent 33.8 % Red Cell Distribution Width 17.1 % Platelet Count 308 TH/MM3 Mean Platelet Volume 7.8 FL Laboratory Tests Test 08/26/17 05:53 08/27/17 06:10 Blood Urea Nitrogen 22 MG/DL 25 MG/DL Creatinine 0.79 MG/DL 0.84 MG/DL Random Glucose 211 MG/DL 215 MG/DL Calcium Level 8.6 MG/DL 9.0 MG/DL Sodium Level 132 MEQ/L 132 MEQ/L Potassium Level 4.8 MEQ/L 4.7 MEQ/L Chloride Level 97 MEQ/L 97 MEQ/L Carbon Dioxide Level 25.3 MEQ/L 23.7 MEQ/L Anion Gap 10 MEQ/L 11 MEQ/L Estimat Glomerular Filtration Rate 100 ML/MIN 94 ML/MIN B-Type Natriuretic Peptide 127 PG/ML 162 PG/ML Magnesium Level 2.3 MG/DL Imaging Last Impressions Aorta w/Runoff CTA 08/19/17 0000 Signed Impressions: CONCLUSION: 1. Atherosclerotic changes without significant stenosis bilateral lower extrem ities. Chest X-Ray 08/15/17 0955 Signed Impressions: CONCLUSION: 1. No acute abnormality or significant interval change. Toe X-Ray 08/15/17 0000 Signed Impressions: CONCLUSION: Questionable small erosion distal phalanx right second toe. This could be infec tious in nature if there is clinical evidence for soft tissue infection. Renal Ultrasound 08/15/17 0000 Signed Impressions: CONCLUSION: 1. No hydronephrosis. 2. Increased echogenicity most characteristic of medical renal disease. Foot MRI 08/15/17 0000 Signed Impressions: CONCLUSION: 1. No evidence for osteomyelitis. Soft tissue swelling at the second toe. Extremity Arterial Study 08/15/17 Signed Impressions: CONCLUSION: 1. Findings consistent with left outflow disease as well as small vessel disea se in the left foot. 2. Near normal range right ankle-brachial indices and segmental pressures. Physical Exam GENERAL: male patient, Asleep but easily awakens to voice. Appears comfortable. SKIN: No rashes or lesions. Warm and dry. HEAD: Atraumatic. Normocephalic. EYES: Pupils equal round and reactive. Extraocular motions intact. No scleral icterus. No injection or drainage. ENT: Nose without bleeding or purulent drainage. Airway patent. MMM. NECK: Trachea midline. Supple, nontender, no meningeal signs. CARDIOVASCULAR: HS audible. + ICD. RESPIRATORY: Nonlabored. Clear to auscultation. Breath sounds equal bilaterally. No wheezes, rales, or rhonchi. GASTROINTESTINAL: Abdomen soft, nontender to palpation. MUSCULOSKELETAL: No BLE edema appreciated. Right foot dressed, C/D/I, able to wiggles toes slightly on right foot. Decreased sensation but able to feel light touch on toes. NEUROLOGICAL: Awake and alert. Able to move all extremities spontaneously. Grossly non-focal. Normal speech. Psych calm and cooperative IV line sites with no e.o infection. Assessment & Plan Remarks Sepsis High grade MSSA bacteremia - source ?2nd toe, concern with ICD Right 2nd toe wet gangrene, osteomyelitis. Hepatitis C antibody positive. AICD status. CAD with severe ischemic cardiomyopathy. Thrombocytopenia likely due to severe infection Recs Continue IV Ancef Post hospital infusion orders in chart. dw CM will go to infusion center. Needs mandatory follow up with podiatry on discharge. Follow cultures until finalized Follow path Follow clinically Will sign off please call back if any change in clinical condition or questions. I will be OOT from 08/28/2017 to 09/09/2017. I will be back in town 09/10/2017. Michelle Galan MD Aug 27, 2017 12:36
[2017-08-27] MEDS ORDERED: CEFA2SOL IV (12:37)
[2017-08-27] MEDS ORDERED: EPIN1INJ21 SQ (12:37)
[2017-08-27] MEDS ORDERED: SOLU250I IV PUSH (12:37)
[2017-08-27] MEDS ORDERED: EPIN1INJ21 IV PUSH (12:37)
--- NOTE | 2017-08-27 12:41 | HHI.FF ---
Infusion Therapy Location of Infusion Therapy: Ambulatory Infusion Therapy Order Patient Information Appointment Date: Aug 27, 2017 Patient Weight 84.9 kg Diagnosis: Diagnosis MSSA bacteremia MSSA foot infection osteomyelitis s.p amputation of 2nd toe. AICD in place. Coded Allergies: potassium iodide (Unverified Allergy, Severe, Swelling, 06/12/17) povidone-iodine (Unverified Allergy, Severe, Swelling, 06/12/17) shellfish derived (Unverified Allergy, Severe, 06/12/17) sodium iodide (Unverified Allergy, Severe, Swelling, 06/12/17) sodium iodide (Unverified Allergy, Severe, Swelling, 06/12/17) Administer Medication Cefazolin (prefer pump. If pump total 6 gms Ancef in 24 hrs.) 2 grams IV q 8 hours Start Treatment: Aug 27, 2017 Stop Treatment: Oct 02, 2017 Additional Information Venous access: PICC Line Additional Instructions [x] Peripheral flush and dressing changes per protocol [x] Implanted port and central supervisor line department: * Implanted port: 10 ml Normal Saline followed by 5 ml Heparin 100 units/ml Heparin flush after each use and monthly to maintain. [] May leave port accessed during therapy. [] May leave peripheral site accessed for duration of therapy. [x] If patient has SOB or respiratory distress, check oxygen saturation. If less than 90% or clinical signs of respiratory distress, administer oxygen at 2 L/min. via nasal cannula and notify physician. [x] Anaphylaxis/Reaction orders: * Stop infusion. * Keep IV line open with saline flush. * Notify physician. * Monitor vital signs every 15 minutes until symptoms resolve. * Check Oxygen saturation; Oxygen at 2 L/min. via nasal cannula if less than 90% or clinical signs of respiratory distress. * Administer diphenhydramine (Benadryl) 25 mg IV STAT, (unless patient has received as pre-med). May repeat once, if necessary. * Solu-Cortef 250 mg IVP over 30-60 seconds, use 100 mg vials for each dissolution. * Epinephrine (1mg/1 ml) 0.3 mg subcutaneously or IVP now with any signs of respiratory distress. * Check with physician for new additional pre-med orders if patient is re- challenged or re-treated. [x] May remove PICC line when treatment complete, after confirming with Physician. [x] If the patient is admitted to the hospital, the ED, or transferred via [facility] , complete transfer form including medication reconciliation order sheet. Laboratory Tests Weekly Labs: CBC w/diff, Creatinine, CRP, LFT's (Hepatic function test) Additional Information Please draw weekly labs, fax to numbers below, Call with abnormal labs or change in clinical condition or problems to: Dr.Tanuja Galan or covering ID Physician Follow up appt: Patient to follow up with podiatry. Follow up with PCP Follow up with other MDs as planned. Counseling: Counseled about medication side effects Counseled about PICC line care and hand hygiene. Michelle Galan MD Aug 27, 2017 12:41
[2017-08-27] MEDS ORDERED: ASPI81 CHEW (13:01)
[2017-08-27] MEDS ORDERED: HYDR-3516 PO (13:01)
--- NOTE | 2017-08-27 15:11 | HHI.PR ---
Subjective Remarks Patient seen bedside with nurse present. Sanguinous drainage noted to right surgical dressing. Objective Vital Signs Date Time Temp Pulse Resp B/P (MAP) Pulse Ox O2 Delivery O2 Flow Rate FiO2 08/27/17 14:00 71 08/27/17 13:00 65 08/27/17 12:47 98.2 70 18 120/66 (84) 97 08/27/17 12:00 61 08/27/17 11:00 68 08/27/17 10:00 80 08/27/17 09:00 73 08/27/17 09:00 97 21 08/27/17 08:35 97 Room Air 08/27/17 08:35 98.5 74 16 107/72 (84) 97 08/27/17 08:00 70 08/27/17 07:00 68 08/27/17 06:00 80 08/27/17 05:00 72 08/27/17 04:00 68 08/27/17 04:00 97.8 77 20 103/60 (74) 99 08/27/17 03:00 74 08/27/17 02:00 82 08/27/17 01:00 78 08/27/17 00:00 87 08/27/17 00:00 97.8 77 20 121/73 (89) 97 08/26/17 23:00 80 08/26/17 22:00 82 08/26/17 21:40 21 08/26/17 21:00 82 08/26/17 20:00 98.0 83 20 101/57 (72) 99 08/26/17 20:00 81 08/26/17 20:00 Room Air 08/26/17 18:00 68 08/26/17 17:00 66 08/26/17 16:55 20 08/26/17 16:00 61 08/26/17 16:00 97.8 65 18 128/73 (91) 98 I/O 08/26/17 08/26/17 08/26/17 08/27/17 08/27/17 08/27/17 07:00 15:00 23:00 07:00 15:00 23:00 Intake Total 470 ml 1170 ml 526 ml 50 ml Output Total 1300 ml 1550 ml 1325 ml Balance -830 ml -380 ml -799 ml 50 ml Intake Oral 240 ml 820 ml 476 ml IV Total 230 ml 350 ml 50 ml 50 ml Output Urine Total 1300 ml 1550 ml 1325 ml # Bowel Movements 0 0 Result Diagram: 08/27/17 0610 08/27/17 0610 Imaging Last Impressions Chest X-Ray 08/23/17 0000 Signed Impressions: CONCLUSION: Stable appearance with no acute cardiopulmonary disease. There is no evidence o f pneumonia. Aorta w/Runoff CTA 08/19/17 0000 Signed Impressions: CONCLUSION: 1. Atherosclerotic changes without significant stenosis bilateral lower extrem ities. Toe X-Ray 08/15/17 0000 Signed Impressions: CONCLUSION: Questionable small erosion distal phalanx right second toe. This could be infec tious in nature if there is clinical evidence for soft tissue infection. Renal Ultrasound 08/15/17 0000 Signed Impressions: CONCLUSION: 1. No hydronephrosis. 2. Increased echogenicity most characteristic of medical renal disease. Foot MRI 08/15/17 0000 Signed Impressions: CONCLUSION: 1. No evidence for osteomyelitis. Soft tissue swelling at the second toe. Extremity Arterial Study 08/15/17 0000 Signed Impressions: CONCLUSION: 1. Findings consistent with left outflow disease as well as small vessel disea se in the left foot. 2. Near normal range right ankle-brachial indices and segmental pressures. Other Results Microbiology Date/Time Source Procedure Growth Status 08/21/17 02:50 Blood Peripheral Aerobic Blood Culture - Final NO GROWTH IN 5 DAYS Complete 08/21/17 02:50 Blood Peripheral Anaerobic Blood Culture - Final NO GROWTH IN 5 DAYS Complete 08/20/17 16:24 Wound Toe Fungal Smear - Final NO FUNGAL ELEMENTS SEEN. Resulted 08/20/17 16:24 Wound Toe Fungal Culture - Preliminary NO GROWTH IN 1 WEEK Resulted Objective Remarks Right foot surgical dressing intact with sanguinous strikethrough noted. Sanguinous strikethrough is not copious. Medications and IVs Current Medications Medications (Trade) Dose Ordered Sig/Erika Route Start Time Stop Time Status Last Admin (NS Flush) 2 ml UNSCH PRN IVF 08/15/17 10:00 08/25/17 19:53 (D50w (Vial) Inj) 50 ml UNSCH PRN IV PUSH 08/15/17 13:30 (Glucagon Inj) 1 mg UNSCH PRN OTHER 08/15/17 13:30 (NovoLOG SUPPLEMENTAL SCALE) 1 ACHS SLIDING SCALE SQ 08/15/17 17:00 08/27/17 12:00 (Pravachol) 40 mg DAILY PO 08/16/17 09:00 08/27/17 08:13 (Duoneb Neb) 1 ampule Q4HR NEB PRN NEB 08/15/17 13:45 08/15/17 15:38 (Tylenol) 650 mg Q4H PRN PO 08/15/17 14:30 08/18/17 11:45 ([place] 5-325 Mg) 1 tab Q4H PRN PO 08/15/17 14:30 08/27/17 12:12 (Reglan Inj) 5 mg Q6H PRN IV PUSH 08/16/17 02:30 08/16/17 20:10 (Zofran Odt) 4 mg Q6H PRN PO 08/16/17 02:30 08/19/17 11:50 (Lopressor Inj) 5 mg Q5M PRN IV PUSH 08/16/17 02:45 08/16/17 03:06 (Tessalon) 100 mg TID PRN PO 08/17/17 03:00 08/20/17 02:00 (Robitussin Ac 200-20 Mg/10 ml Liq) 10 ml Q6H PRN PO 08/17/17 03:00 08/25/17 19:52 (Coreg) 6.25 mg Q12HR PO 08/17/17 11:30 08/27/17 08:13 (Entresto 49-51 Mg) 1 tab BID PO 08/17/17 21:00 08/27/17 08:13 Cefazolin Sodium/ Dextrose 50 ml @ 100 mls/hr Q8H IV 08/18/17 09:00 08/27/17 08:14 (Aspirin Chew) 81 mg DAILY CHEW 08/19/17 12:10 08/27/17 08:14 Sodium Chloride 1,000 ml @ 100 mls/hr Q10H IV 08/20/17 11:15 Future Hold 08/21/17 10:17 (Protonix) 40 mg DAILY PO 08/21/17 09:00 08/27/17 08:13 (Levemir Inj) 15 units Q12HR SQ 08/25/17 21:00 08/27/17 08:12 Assessment and Plan Assessment and Plan 57-year-old male status post right foot surgical intervention intervention for gangrenous toe, status post second digit amputation Patient evaluated and examined with all questions answered Nursing to change dressing before DC Patient to keep dressing clean dry and intact until follow-up in office DC orders placed per podiatry Nyla Miranda DPM Aug 27, 2017 15:11
--- NOTE | 2017-08-27 15:14 | PD.CARD.PN ---
Subjective Subjective Remarks appears comfortable in nad Objective Medications Current Medications Medications (Trade) Dose Ordered Sig/Erika Route Start Time Stop Time Status Last Admin (NS Flush) 2 ml UNSCH PRN IVF 08/15/17 10:00 08/25/17 19:53 (D50w (Vial) Inj) 50 ml UNSCH PRN IV PUSH 08/15/17 13:30 (Glucagon Inj) 1 mg UNSCH PRN OTHER 08/15/17 13:30 (NovoLOG SUPPLEMENTAL SCALE) 1 ACHS SLIDING SCALE SQ 08/15/17 17:00 08/27/17 12:00 (Pravachol) 40 mg DAILY PO 08/16/17 09:00 08/27/17 08:13 (Duoneb Neb) 1 ampule Q4HR NEB PRN NEB 08/15/17 13:45 08/15/17 15:38 (Tylenol) 650 mg Q4H PRN PO 08/15/17 14:30 08/18/17 11:45 ([place] 5-325 Mg) 1 tab Q4H PRN PO 08/15/17 14:30 08/27/17 12:12 (Reglan Inj) 5 mg Q6H PRN IV PUSH 08/16/17 02:30 08/16/17 20:10 (Zofran Odt) 4 mg Q6H PRN PO 08/16/17 02:30 08/19/17 11:50 (Lopressor Inj) 5 mg Q5M PRN IV PUSH 08/16/17 02:45 08/16/17 03:06 (Tessalon) 100 mg TID PRN PO 08/17/17 03:00 08/20/17 02:00 (Robitussin Ac 200-20 Mg/10 ml Liq) 10 ml Q6H PRN PO 08/17/17 03:00 08/25/17 19:52 (Coreg) 6.25 mg Q12HR PO 08/17/17 11:30 08/27/17 08:13 (Entresto 49-51 Mg) 1 tab BID PO 08/17/17 21:00 08/27/17 08:13 Cefazolin Sodium/ Dextrose 50 ml @ 100 mls/hr Q8H IV 08/18/17 09:00 08/27/17 08:14 (Aspirin Chew) 81 mg DAILY CHEW 08/19/17 12:10 08/27/17 08:14 Sodium Chloride 1,000 ml @ 100 mls/hr Q10H IV 08/20/17 11:15 Future Hold 08/21/17 10:17 (Protonix) 40 mg DAILY PO 08/21/17 09:00 08/27/17 08:13 (Levemir Inj) 15 units Q12HR SQ 08/25/17 21:00 08/27/17 08:12 Vital Signs / I&O Vital Signs Date Time Temp Pulse Resp B/P (MAP) Pulse Ox O2 Delivery O2 Flow Rate FiO2 08/27/17 14:00 71 08/27/17 13:00 65 08/27/17 12:47 98.2 70 18 120/66 (84) 97 08/27/17 12:00 61 08/27/17 11:00 68 08/27/17 10:00 80 08/27/17 09:00 73 08/27/17 09:00 97 21 08/27/17 08:35 97 Room Air 08/27/17 08:35 98.5 74 16 107/72 (84) 97 08/27/17 08:00 70 08/27/17 07:00 68 08/27/17 06:00 80 08/27/17 05:00 72 08/27/17 04:00 68 08/27/17 04:00 97.8 77 20 103/60 (74) 99 08/27/17 03:00 74 08/27/17 02:00 82 08/27/17 01:00 78 08/27/17 00:00 87 08/27/17 00:00 97.8 77 20 121/73 (89) 97 08/26/17 23:00 80 08/26/17 22:00 82 08/26/17 21:40 21 08/26/17 21:00 82 08/26/17 20:00 98.0 83 20 101/57 (72) 99 08/26/17 20:00 81 08/26/17 20:00 Room Air 08/26/17 18:00 68 08/26/17 17:00 66 08/26/17 16:55 20 08/26/17 16:00 61 08/26/17 16:00 97.8 65 18 128/73 (91) 98 I/O 08/26/17 08/26/17 08/26/17 08/27/17 08/27/17 08/27/17 07:00 15:00 23:00 07:00 15:00 23:00 Intake Total 470 ml 1170 ml 526 ml 50 ml Output Total 1300 ml 1550 ml 1325 ml Balance -830 ml -380 ml -799 ml 50 ml Intake Oral 240 ml 820 ml 476 ml IV Total 230 ml 350 ml 50 ml 50 ml Output Urine Total 1300 ml 1550 ml 1325 ml # Bowel Movements 0 0 Physical Exam GENERAL: SKIN: Warm and dry. HEAD: Normocephalic. EYES: No scleral icterus. No injection or drainage. NECK: Supple, trachea midline. No JVD or lymphadenopathy. CARDIOVASCULAR: Regular rate and rhythm without murmurs, gallops, or rubs. RESPIRATORY: Breath sounds equal bilaterally. No accessory muscle use. GASTROINTESTINAL: Abdomen soft, non-tender, nondistended. MUSCULOSKELETAL: No cyanosis, or edema. BACK: Nontender without obvious deformity. No CVA tenderness. Laboratory Laboratory Tests Test 08/27/17 06:10 White Blood Count 8.8 TH/MM3 Red Blood Count 4.64 MIL/MM3 Hemoglobin 12.8 GM/DL Hematocrit 37.9 % Mean Corpuscular Volume 81.7 FL Mean Corpuscular Hemoglobin 27.6 PG Mean Corpuscular Hemoglobin Concent 33.8 % Red Cell Distribution Width 17.1 % Platelet Count 308 TH/MM3 Mean Platelet Volume 7.8 FL Activated Partial Thromboplast Time 25.1 SEC Blood Urea Nitrogen 25 MG/DL Creatinine 0.84 MG/DL Random Glucose 215 MG/DL Calcium Level 9.0 MG/DL Magnesium Level 2.3 MG/DL Sodium Level 132 MEQ/L Potassium Level 4.7 MEQ/L Chloride Level 97 MEQ/L Carbon Dioxide Level 23.7 MEQ/L Anion Gap 11 MEQ/L Estimat Glomerular Filtration Rate 94 ML/MIN B-Type Natriuretic Peptide 162 PG/ML Assessment and Plan Problem List: (1) ARF (acute renal failure) ICD Codes: N17.9 - Acute kidney failure, unspecified (2) NSTEMI (non-ST elevated myocardial infarction) ICD Codes: I21.4 - Non-ST elevation (NSTEMI) myocardial infarction (3) CAD (coronary artery disease) ICD Codes: I25.10 - Atherosclerotic heart disease of [place] coronary artery without angina pectoris (4) Decreased cardiac ejection fraction ICD Codes: R93.1 - Abnormal findings on diagnostic imaging of heart and coronary circulation (5) Elevated troponin ICD Codes: R74.8 - Abnormal levels of other serum enzymes (6) Severe sepsis ICD Codes: A41.9 - Sepsis, unspecified organism; R65.20 - Severe sepsis without septic shock (7) Diabetes mellitus ICD Codes: E11.9 - Type 2 diabetes mellitus without complications (8) Acute renal failure ICD Codes: N17.9 - Acute kidney failure, unspecified (9) Cardiomyopathy ICD Codes: I42.9 - Cardiomyopathy, unspecified (10) gangrene of the right second toe (11) Dyspnea and respiratory abnormalities ICD Codes: R06.00 - Dyspnea, unspecified; R06.89 - Other abnormalities of breathing (12) Multi-vessel coronary artery stenosis ICD Codes: I25.10 - Atherosclerotic heart disease of [place] coronary artery without angina pectoris (13) Hx of CABG ICD Codes: Z95.1 - Presence of aortocoronary bypass graft (14) Thrombocytopenia ICD Codes: D69.6 - Thrombocytopenia, unspecified Assessment and Plan 1.) Ischemic cardiomyopathy - nstemi, chf excacerbation and arf due to severe unrevascularizable cad, cardiomyopathy, on aspirin and heparin per hematology, on antibiotics, pod # 5, 2nd toe amputation, stable; entresto added, ok to dc from cv standpoint, f/u with me in office next day d/w nurse and patient 2.) VT - replete electrolytes, on coreg; d/w case management further attempts to insure and obtain eligibility for referral to heart transplant center 3.) PVD - off heparin Garrett Henao MD Aug 27, 2017 15:14
--- NOTE | 2017-08-27 17:52 | HHI.DS ---
Discharge Summary Admission Date August 15, 2017 at 13:03 Discharge Date: Aug 27, 2017 Admitting Diagnosis severe sepsis, elevated troponin (1) Severe sepsis ICD Code: A41.9 - Sepsis, unspecified organism; R65.20 - Severe sepsis without septic shock Diagnosis: Principal (2) Elevated troponin ICD Code: R74.8 - Abnormal levels of other serum enzymes Diagnosis: Principal (3) gangrene of the right second toe Diagnosis: Principal Procedures August 20, 2017 Pre Op Diagnosis: gangrene with osteomyelitis right 2nd toe Post Op Diagnosis: same Surgeon: Ron Goldman DPM Electronic Induction Hardener(s): Staff Procedure: amputation right 2nd toe Findings: Consistent with diagnosis. Right 2nd toe with necrotic tissue to entire digit. Foul odor slightly present. Margins clean without purulence. Two semi-elliptical incisions made to disarticulate digit in its entirety at metatarsophalangeal joint level. 2nd metatarsal head with white healthy cartilage cap. No purulence noted. Culture taken prior to irrigation and primary closure with 2-0 nylon suture. Dressing with xeroform, 4x4, cast padding, livia. Weightbearing as tolerated to heel in surgical shoe for transfers only. Additional Information: see findings Complications: none Specimen(s) removed: 1. toe right 2nd 2. culture right foot Estimated blood loss: minimal Anesthesia: MAC, Local (10mL 2% lidocaine plain) Drains: None Tourniquet time (min at mmHg) n/a Patient to: PACU Patient Condition: Good Date/Time of Procedure: SEE SURGICAL CARE RECORD Ron Goldman DPM Brief History - From Admission patient is a 57 y/o male with history of severe three vessel disease, cardiomyopathy, s/p defibrillator placement, hypertension, diabetes,COPD who presented to ER with worsening sob. he says that he started to have sob three days ago. it gradually got worse the past few days. he also says that he noticed some redness over the right second toe around the same time. he says that ' I'm on blood thinners and I might've bumped my foot on something'. he says that it started as a small redness but this got worse over the past few days. he denies any fever. he says that he had some occasional cough and some lower chest pain which is worse with the cough. of note he was admitted to this hospital about two months ago, underwent cardiac catheterization when he was found to have severe three vessel disease. he was evaluated by CT surgery - however he was believed to have poor targets for redo sternotomy. he had defibrillator placement at the time. CBC/BMP: 08/27/17 0610 08/27/17 0610 Significant Findings Laboratory Tests Test 08/25/17 04:03 08/26/17 05:53 08/27/17 06:10 Activated Partial Thromboplast Time 52.2 SEC (24.3-30.1) 50.0 SEC (24.3-30.1) Blood Urea Nitrogen 21 MG/DL (7-18) 22 MG/DL (7-18) 25 MG/DL (7-18) Random Glucose 269 MG/DL (74-106) 211 MG/DL (74-106) 215 MG/DL (74-106) Sodium Level 132 MEQ/L (136-145) 132 MEQ/L (136-145) 132 MEQ/L (136-145) Chloride Level 97 MEQ/L (98-107) 97 MEQ/L (98-107) 97 MEQ/L (98-107) Estimat Glomerular Filtration Rate 86 ML/MIN (>89) B-Type Natriuretic Peptide 254 PG/ML (0-100) 127 PG/ML (0-100) 162 PG/ML (0-100) Cholesterol Level 99 MG/DL (120-200) HDL Cholesterol 26.0 MG/DL (40.0-60.0) Hemoglobin 12.8 GM/DL (13.0-17.0) Hematocrit 37.9 % (39.0-51.0) Imaging Last Impressions Chest X-Ray 08/23/17 0000 Signed Impressions: CONCLUSION: Stable appearance with no acute cardiopulmonary disease. There is no evidence o f pneumonia. Aorta w/Runoff CTA 08/19/17 0000 Signed Impressions: CONCLUSION: 1. Atherosclerotic changes without significant stenosis bilateral lower extrem ities. Toe X-Ray 08/15/17 0000 Signed Impressions: CONCLUSION: Questionable small erosion distal phalanx right second toe. This could be infec tious in nature if there is clinical evidence for soft tissue infection. Renal Ultrasound 08/15/17 Signed Impressions: CONCLUSION: 1. No hydronephrosis. 2. Increased echogenicity most characteristic of medical renal disease. Foot MRI 08/15/17 Signed Impressions: CONCLUSION: 1. No evidence for osteomyelitis. Soft tissue swelling at the second toe. Extremity Arterial Study 08/15/17 Signed Impressions: CONCLUSION: 1. Findings consistent with left outflow disease as well as small vessel disea se in the left foot. 2. Near normal range right ankle-brachial indices and segmental pressures. PE at Discharge GENERAL: Alert, Oriented x 3, NAD. SKIN: Warm and dry. HEAD: Normocephalic. EYES: No scleral icterus. No injection or drainage. NECK: Supple, trachea midline. No JVD or lymphadenopathy. CARDIOVASCULAR: Regular rate and rhythm without murmurs, gallops, or rubs. RESPIRATORY: Breath sounds equal bilaterally. No accessory muscle use. GASTROINTESTINAL: Abdomen soft, non-tender, nondistended. MUSCULOSKELETAL: No cyanosis, or edema. right foot wrapped with dressing. BACK: Nontender without obvious deformity. No CVA tenderness. Pt update on day of discharge Patient is doing well. No acute concerns. No further bleeding from right foot. He wants to go home. Hospital Course 57 year old male with ischemic cardiomyopathy with AICD, CAD with 3V CABG, HTN, DM, and COPD admitted on 08/15 for severe, progressive exertional dyspnea as well as right second toe pain. He was found to have severe sepsis secondary to gangrene/infection of R second toe, NSTEMI with troponin 3.04, and CHF exacerbation with BNP >3000. Sepsis R second toe osteomyelitis, gangrene MSSA bacteremia - Acute sepsis component resolved - Afebrile, no leukocytosis - Blood culture from 08/15-08/18 all growing MSSA - Blood cultures since 08/21 NG - Wound culture growing MSSA - ID following; recommend continuing IV Ancef 2 g IV Q8H x 6 weeks - ID cleared for discharge with IV abx recommendations. - Podiatry following; s/p 2nd toe amputation 08/20. WB as tolerated. Cleared per podiatry - Appreciate podiatry recommendations. Ischemic cardiomyopathy CHF exacerbation NSTEMI AICD firing for VTACH (08/16) CAD with 3V CABG - Continue ASA, Entresto, Coreg - Continue statin - discussed with Dr. Troy (Vascular surgeon) who recommend no anti-coagulation or Plavix. Acute kidney injury - Resolved - Avoid nephrotoxic agents Thrombocytopenia - Resolved - Likely secondary to infectious process - Heme/onc consulted earlier in course; HIT ab negative Diabetes mellitus, uncontrolled - A1c 9.6 - SSI per protocol; required 28 units yesterday - Increased Levemir to 15 units BID in the hospital - Continue Metformin and Glyburide upon discharge. COPD - Supplemental O2 and nebs PRN Pt Condition on Discharge: Good Discharge Disposition: Disch w/ Home Health Serv Discharge Instructions DIET: Follow Instructions for: Heart Healthy Diet Activities you can perform: Regular-No Restrictions Manan Sosa DO Aug 27, 2017 17:52
== END 2017-08-27 19:07 | disposition home health service (06) | DRG 853 ==
LOC: NEPC 09:42 → NEDA 13:03 → NEDH 22:53 → HCIS 08-16 21:03
PROVIDERS: ADMIT Hospitalist; ATTEND Hospitalist
PROC: 0Y6R0Z0 Detachment at Right 2nd Toe, Complete, Open Approach (ICD-10-PCS; principal; 2017-08-20 16:13)
DX: A41.01 Sepsis due to Methicillin susceptible Staphylococcus aureus (principal); D65 Disseminated intravascular coagulation [defibrination syndrome]; I21.4 Non-ST elevation (NSTEMI) myocardial infarction; N17.9 Acute kidney failure, unspecified; I47.2 Ventricular tachycardia; E11.52 Type 2 diabetes mellitus with diabetic peripheral angiopathy with gangrene; I47.1 Supraventricular tachycardia; I49.01 Ventricular fibrillation; M86.171 Other acute osteomyelitis, right ankle and foot; E87.2 Acidosis; I48.92 Unspecified atrial flutter; I11.0 Hypertensive heart disease with heart failure; I27.20 Pulmonary hypertension, unspecified; E11.69 Type 2 diabetes mellitus with other specified complication; E11.42 Type 2 diabetes mellitus with diabetic polyneuropathy; I50.9 Heart failure, unspecified; R65.20 Severe sepsis without septic shock; I25.10 Atherosclerotic heart disease of native coronary artery without angina pectoris; I25.5 Ischemic cardiomyopathy; J44.9 Chronic obstructive pulmonary disease, unspecified; E78.5 Hyperlipidemia, unspecified; R06.82 Tachypnea, not elsewhere classified; L03.031 Cellulitis of right toe; B95.61 Methicillin susceptible Staphylococcus aureus infection as the cause of diseases classified elsewhere; Z85.828 Personal history of other malignant neoplasm of skin; Z82.49 Family history of ischemic heart disease and other diseases of the circulatory system; Z95.810 Presence of automatic (implantable) cardiac defibrillator; Z95.1 Presence of aortocoronary bypass graft; I25.2 Old myocardial infarction; Z87.891 Personal history of nicotine dependence; Z79.82 Long term (current) use of aspirin; Z79.84 Long term (current) use of oral hypoglycemic drugs; Z91.041 Radiographic dye allergy status
CPT/HCPCS: 36569; 36600; 71045; 73660; 73720; 75635; 76775; 76937; 80048; 80053; 80061; 80074; 80170; 82565; 82570; 82805; 82948; 83036; 83605; 83735; 83880; 84100; 84156; 84300; 84439; 84443; 84484; 85007; 85025; 85027; 85379; 85384; 85610; 85652; 85730; 86022; 86140; 86403; 87015; 87040; 87070; 87102; 87116; 87147; 87186; 87205; 87206; 87389; 88305; 88311; 93005; 93306; 93923; 94664; 96365; 96375; A9577; C9113; G0475; J0690; J0692; J1580; J1644; J1815; J2250; J2543; J2765; J3370; J3475; J7030; J7040; J7050; L3260; Q9967

== ENCOUNTER 2017-08-28 19:00 | Emergency (ER) | payer OTHER ==
[~2017-08-28 19:00] MED LIST changes: +ASPI81 CHEW; +CEFA2SOL IV; -CEPH500C PO; -CLOP75TA PO; -ECASA81 PO; +EPIN1INJ21 IV PUSH; +EPIN1INJ21 SQ; +HYDR-3516 PO; +SOLU250I IV PUSH
[2017-08-28 19:22] VITALS: BP 106/57; PULSE 97; RESP 18; TEMP 98.2; O2SAT 97
[2017-08-28] MEDS ORDERED: SODIUM CHLORIDE 0.9% FLUSH 10 ML FLUSH IVF PRN (19:45)
--- NOTE | 2017-08-28 20:09 | PD ---
HPI Chief Complaint: Medical Clearance Time Seen by Provider: 19:29 Travel History International Travel<30 days: No Contact w/Intl Traveler<30days: No Traveled to known affect area: No History of Present Illness HPI Patient is a 57-year-old male who presents the emergency room for evaluation of PICC line malfunction. Patient reports that he was discharged from the hospital yesterday after he was treated for gangrene with osteomyelitis the right second toe. Patient had a home nurse come today to start his PICC line as he receives Ancef 2 g IV every 8 hours which will be for 6 weeks. Patient reports that patient's PICC line occluded while getting his dose of Ancef, they were unable to flush the port today - home RN told him to go to the ER for evaluation. Patient with no other complaints at this time. PFSH Past Medical History Hx Anticoagulant Therapy: Yes (PLAVIX) Arthritis: Yes Heart Rhythm Problems: Yes Cancer: No Cardiac Catheterization: Yes Cardiovascular Problems: Yes (VT, BYPASS, DEFIBULATOR) High Cholesterol: Yes Chest Pain: Yes Congestive Heart Failure: Yes COPD: Yes Coronary Artery Disease: Yes Diabetes: Yes Diminished Hearing: No Endocrine: Yes Gastrointestinal Disorders: Yes Genitourinary: No Hypertension: Yes Immune Disorder: No Musculoskeletal: Yes Neurologic: No Psychiatric: No Reproductive: No Respiratory: Yes Immunizations Current: Yes Myocardial Infarction: Yes (05/2012) Ulcer: Yes Past Surgical History AICD: Yes Appendectomy: Yes Cardiac Surgery: Yes (CABG X3) Coronary Artery Bypass Graft: Yes Joint Replacement: Yes (TITANIUM AASHISH IN BACK) Pacemaker: No Other Surgery: Yes (CABG, APPENDECTOMY, SKIN GRAFTS TO RIGHT FOOT A CHILD, BACK SURGERY X 3) Social History Alcohol Use: Yes (SOCIALLY) Tobacco Use: No (QUIT 3 YEARS AGO) Substance Use: No Allergies-Medications (Allergen,Severity, Reaction): Coded Allergies: potassium iodide (Unverified Allergy, Severe, Swelling, 08/28/17) povidone-iodine (Unverified Allergy, Severe, Swelling, 08/28/17) shellfish derived (Unverified Allergy, Severe, 08/28/17) sodium iodide (Unverified Allergy, Severe, Swelling, 08/28/17) sodium iodide (Unverified Allergy, Severe, Swelling, 08/28/17) Reported Meds & Prescriptions Reported Meds & Active Scripts Active Hydrocodone-Acetamin 5-325 mg (Hydrocodone/Acetaminophen) 5 Mg-325 Mg Tablet 1 Tab PO Q6HR PRN Post surgery pain management. Tgt Aspirin (Aspirin) 81 Mg Chw 81 Mg CHEW DAILY Epinephrine Inj 1 Mg/Ml (1 Ml) Inj 0.3 Mg SQ ONCE PRN Give with any signs of respiratory distress. Epinephrine Inj 1 Mg/Ml (1 Ml) Inj 0.3 Mg IV PUSH ONCE PRN Solu-Cortef Inj (Hydrocortisone Sodium Succinate) 250 Mg/2 Ml Inj 250 Mg IV PUSH ONCE PRN Give over 30-60 seconds. Cefazolin Inj (Cefazolin Sodium/Dextrose) 2 Gm/50 Ml Bagp 2 Gm IV Q8H 35 Days Famotidine 20 Mg Tab 20 Mg PO BID Aldactone (Spironolactone) 50 Mg Tab 50 Mg PO DAILY Entresto (Sacubitril-Valsartan) 49-51 Mg Tab 1 Tab PO BID Carvedilol 6.25 Mg Tab 6.25 Mg PO BID Pravastatin 40 Mg Tab 40 Mg PO DAILY Reported Glucophage (Metformin HCl) 850 Mg Tab 850 Mg PO TIDPC Glyburide 2.5 Mg Tab 2.5 Mg PO BID Take with meals at the same time each day Review of Systems General / Constitutional: No: Fever Eyes: No: Visual changes HENT: No: Headaches Cardiovascular: No: Chest Pain or Discomfort Respiratory: No: Shortness of Breath Gastrointestinal: No: Abdominal Pain Genitourinary: No: Dysuria Musculoskeletal: No: Pain Skin: No Rash Neurologic: No: Weakness Psychiatric: No: Depression Endocrine: No: Polydipsia Hematologic/Lymphatic: No: Easy Bruising Physical Exam Narrative GENERAL: Well-nourished, well-developed patient. SKIN: Focused skin assessment warm/dry. HEAD: Normocephalic. EYES: No scleral icterus. No injection or drainage. NECK: Supple, trachea midline. No JVD or lymphadenopathy. CARDIOVASCULAR: Regular rate and rhythm without murmurs, gallops, or rubs. RESPIRATORY: Breath sounds equal bilaterally. No accessory muscle use. GASTROINTESTINAL: Abdomen soft, non-tender, nondistended. MUSCULOSKELETAL: No cyanosis, or edema. PICC line in place to the right AC BACK: Nontender without obvious deformity. No CVA tenderness. Data Data Last Documented VS Vital Signs Date Time Temp Pulse Resp B/P (MAP) Pulse Ox O2 Delivery O2 Flow Rate FiO2 08/28/17 19:22 98.2 97 18 106/57 (73) 97 Orders Orders Sodium Chloride 0.9% Flush (Ns Flush) (08/28/17 19:45) Heparin Central Flush (Heparin Central F (08/28/17 19:45) Ed Discharge Order (08/28/17 20:40) MDM Medical Decision Making Medical Screen Exam Complete: Yes Emergency Medical Condition: Yes Medical Record Reviewed: Yes Interpretation(s) Vital Signs Date Time Temp Pulse Resp B/P (MAP) Pulse Ox O2 Delivery O2 Flow Rate FiO2 08/28/17 19:22 98.2 97 18 106/57 (73) 97 Differential Diagnosis PICC line malfunction Narrative Course RN attempted to flush PICC line with normal saline flush, unable to flush picc line, heparin flush ordered PICC line flushing after heparin flush, patient's ancef was hooked up to the PICC line and is functioning. Patient was monitored for PICC line malfunction - no malfunction. Patient will be discharged to home with PICC line running with Ancef. Patient happy with plan of care Diagnosis Primary Impression: PICC line infiltration Qualified Codes: T82.898A - Other specified complication of vascular prosthetic devices, implants and grafts, initial encounter Patient Instructions: General Instructions Additional Instructions: Please follow up with your primary care doctor Return to ER as needed Disposition: 01 DISCHARGE HOME Condition: Stable Melania Olivares DO Aug 28, 2017 20:09
== END 2017-08-28 20:44 | disposition home or self-care (01) ==
LOC: NEPD 19:00
DX: T82.594A Other mechanical complication of infusion catheter, initial encounter (principal)
CPT/HCPCS: 99283; J1642

== ENCOUNTER 2017-10-06 08:18 | Inpatient (IN) ==
[2017-10-06] MEDS ORDERED: Sod Chloride 0.9% Inj 2,000 ML IV.SIG ONE (08:34)
[2017-10-06 08:45] LABS: VBG Blood Gas Oxygen Content 9.4 Vol % (9.0-17.0); VBG PCO2 23 mmHG (44-48); VBG PH 7.44 (7.360-7.400); VBG PO2 34 mmHG (35-40)
[2017-10-06] MEDS ORDERED: Magnesium Sulfate Inj 2 GM in Sodium Chlor 0.9% Inj 96 ML IV.SIG ONE (08:52)
[2017-10-06 08:55] LABS: Baso % (Auto) 0.1 % (0.0-2.0); Hematocrit 34.5 % (39.0-51.0); Hemoglobin 11.5 gm/dL (13.0-17.0); Lymph # (Auto) 0.4 th/mm3 (1.0-4.8); Lymph % (Auto) 2.9 % (9.0-44.0); Mean Corpuscular HGB Conc 33.2 % (32.0-36.0); Mean Corpuscular Hemoglobin 28.5 pg (27.0-34.0); Mean Corpuscular Volume 85.8 fL (80.0-100.0); Mean Platelet Volume 8.4 fL (7.0-11.0); Neut # (Auto) 11.6 th/mm3 (1.8-7.7); Platelet Count 142 th/mm3 (150-450); Red Blood Count 4.03 mil/mm3 (4.50-5.90); Red Cell Distribution Width 14.9 % (11.6-17.2)
[2017-10-06 09:04] LABS: Activated Partial Thrombo Time 29.7 sec (24.3-30.1); INR 1.4 Ratio; Prothrombin Time 14.4 sec (9.8-11.6)
[2017-10-06] MEDS ORDERED: Sod Chloride 0.9% Inj 1,000 ML IV.SIG ONE (09:13)
[2017-10-06 09:27] LABS: Calcium 9.2 mg/dL (8.5-10.1); Carbon Dioxide 13.6 meq/L (21.0-32.0); Magnesium 1.5 mg/dL (1.5-2.5); Potassium 4.8 meq/L (3.5-5.1)
[2017-10-06 09:31] LABS: Troponin I 1.86 ng/mL (0.02-0.05)
--- NOTE | 2017-10-06 09:50 | XR ---
EXAM DATE: 10/06/2017 9:28 AM EDT AGE/SEX: 57 years / Male INDICATIONS: Chest pain. Short of breath. CLINICAL DATA: This is the patient's initial encounter. Patient reports that signs and symptoms have been present for 2 days and indicates a pain score of 5/10. MEDICAL/SURGICAL HISTORY: . Diabetes mellitus type II. Heart attack . CABG. Defibrillator COMPARISON: [facility] [place], CHEST SINGLE AP, 08/23/2017. . FINDINGS: A single AP view of the chest demonstrates the lungs to be symmetrically aerated without evidence of mass, infiltrate or effusion. Intact median sternotomy wires and single lead AICD. Heart size appears mildly enlarged. Pulmonary vasculature is normal. Osseous structures are intact. CONCLUSION: No evidence of congestive heart failure. Stable mild cardiomegaly. Otherwise negative exam. Electronically signed by: Glendy Puentes MD 10/06/2017 9:48 AM EDT
[2017-10-06] MEDS ORDERED: Insulin Regular (For Infusion) 100 UNIT in Sodium Chlor 0.9% Inj 99 ML IV.CONT PRN (10:34)
--- NOTE | 2017-10-06 10:50 | ED ---
HPI General Chief complaint: Chest Pain Stated complaint: medical/SDFR Time Seen by Provider: 10/06/17 08:31 Source: patient, EMS and RN notes reviewed Mode of arrival: EMS History of Present Illness HPI narrative: 57yM brought in by EMS for chest pain. The patient states that he 's being treated for right foot osteomyelitis with IV antibiotics via PICC line ; he states that for the past several days, he's had generalized weakness/ fatigue and intermittent chest pain. He called EMS today for sudden onset substernal chest "pressure" which is constant, non-radiating, moderate to severe intensity, somewhat relieved with nitroglycerin and not precipitated by anything, associated with dyspnea. He denies fever but admits to chills, admits to nausea, denies vomiting or diarrhea. Significant past cardiac history, including stents and CABG, ischemic cardiomyopathy, patient reports EF of <20%. Family history non-contributory. Related Data Home Medications Medication Instructions Recorded Confirmed atorvastatin 40 mg PO DAILY 10/06/17 10/06/17 carvedilol 6.25 mg PO BID 10/06/17 10/06/17 glyburide 2.5 mg PO BID 10/06/17 10/06/17 lisinopril 20 mg PO DAILY 10/06/17 10/06/17 magnesium oxide 400 mg PO BID 10/06/17 10/06/17 metformin 850 mg PO TID 10/06/17 10/06/17 nitroglycerin [Nitrostat] 0.4 mg SUBLINGUAL Q5-15M PRN 10/06/17 10/06/17 pravastatin 40 mg PO DAILY 10/06/17 10/06/17 spironolactone 50 mg PO DAILY 10/06/17 10/06/17 Allergies Allergy/AdvReac Type Severity Reaction Status Date / Time potassium iodide Allergy Severe Swelling Verified 10/06/17 09:36 povidone-iodine Allergy Severe Swelling Verified 10/06/17 09:36 shellfish derived Allergy Severe Swelling Verified 10/06/17 09:36 sodium iodide Allergy Severe Swelling Verified 10/06/17 09:36 sodium iodide Allergy Severe Swelling Verified 10/06/17 09:36 Review of Systems Except as stated in HPI: all other systems reviewed are negative Constitutional Reports chills Eyes Denies blurry vision ENT Denies nasal congestion Cardiovascular Reports chest pain Respiratory Reports dyspnea Gastrointestinal Reports nausea Genitourinary Denies dysuria Musculoskeletal Denies back pain Neurologic Denies confusion Psychiatric Denies confusion [facility] Medical History Medical History Amputated toe (Acute) CHF (congestive heart failure) (Acute) Diabetes mellitus (Acute) Myocardial infarction (Acute) Surgical History Surgical History History of appendectomy (Acute) History of cardiac cath (Acute) Previous back surgery (Acute) S/P CABG x 3 (Acute) Social History Social History Substance History: No History of Abuse Smoking Status: Former smoker How Often Do You Have a Drink Containing Alcohol: 2 to 4 times a month Recent Travel in [facility] within the Last 8 Weeks: No Recent Out of Country Travel within the Last 8 Weeks: No Immunization History Tetanus Immunization: >5 Years Hx Influenza Vaccine This Season: No Exam Const Other: Ill-appearing, frail, no acute distress [facility] Head: normocephalic and atraumatic Face and sinus: normal facial exam Eyes General: appearance normal, both eyes and all related structures Pupils: PERRL Chest Chest: normal inspection of the chest Resp Effort & Inspection: normal respiratory effort Auscultation: no rhonchi and no wheezes Cardio Rate: regular rate Rhythm: regular rhythm GI Inspection: non-distended Palpation: soft and nontender Skin Other: Non-diaphoretic Ulcerated wounds to right foot, no discharge Neuro General: alert, awake, oriented x3 and no focal motor deficits Psych Affect: normal affect Course Reevaluation(s) Reevaluation #1: Patient noted to 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 Time: 08:51 Initial Documented Vital Signs Pulse Rate 111 H 10/06/17 08:24 Respiratory Rate 24 10/06/17 08:24 Blood Pressure 100/59 L 10/06/17 08:24 Pulse Oximetry 98 10/06/17 08:24 Last Documented Vital Signs Pulse Rate 104 H 10/06/17 10:00 Respiratory Rate 21 10/06/17 10:00 Blood Pressure 102/70 10/06/17 10:00 Pulse Oximetry 97 10/06/17 10:00 Critical Care Time Critical Care Time: Yes Total Critical Care Time: 32 Attestation: Total critical care time 32 minutes. This includes examining and stabilizing the patient, gathering a history from a source other than the patient (i.e., chart review, EMS), formulating a differential diagnosis, ordering and interpreting laboratory tests and EKG, ordering and interpreting radiology tests, discussing the patient's care with other providers (critical care), and administering multiple IV medications, including insulin drip and magnesium for arrhythmia management. Medical Decision Making MDM Narrative Medical decision making narrative: Assessment: 57yM presenting with chest pain Plan: EKG and monitor Labs, including VBG (EMS reports FSBG >500), blood cultures, lactic acid Gentle IV fluids- this patient cannot receive 30 cc/kg given cardiomyopathy, received 600 cc prior to arrival, will give an additional liter and reassess CXR Patient already given 324 mg aspirin prior to arrival Addendum: Patient found to have elevated troponin, diabetic ketoacidosis, and lactic acidosis. He will need inpatient admission for IV hydration, insulin drip , trend troponin, cardiac monitoring, and re-evaluation at frequent intervals. Case discussed with Dr. Rios of critical care. Differential Diagnosis Differential Diagnosis: Differential diagnosis includes, but is not limited to: ACS, DKA, sepsis Lab Data Result diagrams: 10/06/17 08:35 10/06/17 08:35 Lab Results 10/06/17 10/06/17 10/06/17 Range/Units 08:30 08:35 08:35 WBC 13.0 H (4.0-11.0) th/mm3 RBC 4.03 L (4.50-5.90) mil/mm3 Hgb 11.5 L (13.0-17.0) gm/dL Hct 34.5 L (39.0-51.0) % MCV 85.8 (80.0-100.0) fL MCH 28.5 (27.0-34.0) pg MCHC 33.2 (32.0-36.0) % RDW 14.9 (11.6-17.2) % Plt Count 142 L (150-450) th/mm3 MPV 8.4 (7.0-11.0) fL Neut % (Auto) 89.0 H (16.0-70.0) % Lymph % (Auto) 2.9 L (9.0-44.0) % [place] % (Auto) 8.0 (0.0-8.0) % Eos % (Auto) 0.0 (0.0-4.0) % Baso % (Auto) 0.1 (0.0-2.0) % Neut # (Auto) 11.6 H (1.8-7.7) th/mm3 Lymph # (Auto) 0.4 L (1.0-4.8) th/mm3 [place] # (Auto) 1.0 H (0.0-0.9) th/mm3 Eos # (Auto) 0.0 (0.0-0.4) th/mm3 Baso # (Auto) 0.0 (0.0-0.2) th/mm3 WBC Differential . Differential Comment Auto diff final PT 14.4 H (9.8-11.6) sec INR 1.4 Ratio APTT 29.7 (24.3-30.1) sec Puncture Site Rn Patient Temperature 98.6 VBG pH 7.44 H (7.360-7.400) VBG pCO2 23 L (44-48) mmHG VBG pO2 34 L (35-40) mmHG VBG HCO3 15 L* (22-26) mmol/L VBG O2 Saturation 58 L (70-76) % VBG O2 Content 9.4 (9.0-17.0) Vol % VBG Base Excess -8.0 L (-2-2) mmol/L VBG Carboxyhemoglobin 1.4 (0-4) % VBG Methemoglobin 0.8 (0-2) % Hemoglobin 11.6 L (12.0-16.0) G/DL O2 Delivery Device Nasal cannula Liter Flow 1.00 L/M Inspired O2 0 % Critical Value Yes Sodium (136-145) meq/L Potassium (3.5-5.1) meq/L Chloride (98-107) meq/L Carbon Dioxide (21.0-32.0) meq/L Anion Gap (5-15) meq/L BUN (7-18) mg/dL Creatinine (0.60-1.30) mg/dL Estimated GFR (>89) mL/min Random Glucose (74-106) mg/dL Lactic Acid (0.4-2.0) mmol/L Calcium (8.5-10.1) mg/dL Magnesium (1.5-2.5) mg/dL Total Creatine Kinase (39-308) U/L Troponin I (0.02-0.05) ng/mL 10/06/17 10/06/17 Range/Units 08:35 08:40 WBC (4.0-11.0) th/mm3 RBC (4.50-5.90) mil/mm3 Hgb (13.0-17.0) gm/dL Hct (39.0-51.0) % MCV (80.0-100.0) fL MCH (27.0-34.0) pg MCHC (32.0-36.0) % RDW (11.6-17.2) % Plt Count (150-450) th/mm3 MPV (7.0-11.0) fL Neut % (Auto) (16.0-70.0) % Lymph % (Auto) (9.0-44.0) % [place] % (Auto) (0.0-8.0) % Eos % (Auto) (0.0-4.0) % Baso % (Auto) (0.0-2.0) % Neut # (Auto) (1.8-7.7) th/mm3 Lymph # (Auto) (1.0-4.8) th/mm3 [place] # (Auto) (0.0-0.9) th/mm3 Eos # (Auto) (0.0-0.4) th/mm3 Baso # (Auto) (0.0-0.2) th/mm3 WBC Differential Differential Comment PT (9.8-11.6) sec INR Ratio APTT (24.3-30.1) sec Puncture Site Patient Temperature VBG pH (7.360-7.400) VBG pCO2 (44-48) mmHG VBG pO2 (35-40) mmHG VBG HCO3 (22-26) mmol/L VBG O2 Saturation (70-76) % VBG O2 Content (9.0-17.0) Vol % VBG Base Excess (-2-2) mmol/L VBG Carboxyhemoglobin (0-4) % VBG Methemoglobin (0-2) % Hemoglobin (12.0-16.0) G/DL O2 Delivery Device Liter Flow L/M Inspired O2 % Critical Value Sodium 134 L (136-145) meq/L Potassium 4.8 (3.5-5.1) meq/L Chloride 102 (98-107) meq/L Carbon Dioxide 13.6 L (21.0-32.0) meq/L Anion Gap 18 H (5-15) meq/L BUN 30 H (7-18) mg/dL Creatinine 1.38 H (0.60-1.30) mg/dL Estimated GFR 53 L (>89) mL/min Random Glucose 464 H* (74-106) mg/dL Lactic Acid 6.4 H* (0.4-2.0) mmol/L Calcium 9.2 (8.5-10.1) mg/dL Magnesium 1.5 (1.5-2.5) mg/dL Total Creatine Kinase 90 (39-308) U/L Troponin I 1.86 H* (0.02-0.05) ng/mL Imaging Data Radiologist's impression: Chest X-Ray 10/06/17 08:34 CONCLUSION: No evidence of congestive heart failure. Stable mild cardiomegaly. Otherwise negative exam. ECG Data Interpretation: Rate: 109 BPM Rhythm: Sinus [place]: Normal Intervals: Normal intervals, no blocks, QTc 414 ms Q waves: None T waves: Inverted in I, aVL, V4-V6 ST segments: Depressions in I, aVL, II, V4-V6 Impression: Lateral ischemic changes, sinus tachycardia, new when compared to EKG from 08/17/2017. Discharge Plan Discharge Disposition Patient Disposition: 30 Still Patient Discharge Condition Condition: Serious Discharge Details Diagnosis: DKA (diabetic ketoacidoses), ACS (acute coronary syndrome), Acidosis, lactic, Frequent unifocal PVCs Physicians Team ED Provider: Brittney Omer Primary Care Provider: Michael Jacques Attending Provider: Ney Rios ED Status: Admitted Patient
[2017-10-06] MEDS ORDERED: Acetaminophen 325 MG Tablet PO PRN (11:04)
[2017-10-06] MEDS ORDERED: Bisacodyl 10 MG Supp RECTAL PRN (11:04)
[2017-10-06] MEDS ORDERED: Sodium Phosphate Inj 15 MMOL in Sodium Chlor 0.9% Inj 100 ML IV.SIG PRN (11:14)
[2017-10-06] MEDS ORDERED: Dextrose 5%/NaCl 0.9% Inj 1,000 ML IV.CONT SCH (11:15)
[2017-10-06] MEDS ORDERED: Sod Chloride 0.9% Inj 1,000 ML IV.CONT SCH (11:15)
--- NOTE | 2017-10-06 11:25 | P.HPCC ---
History of Present Illness Service: Critical care medicine Primary Care Physician: Michael Jacques DO Chief Complaint: Abdominal pain/nausea and vomiting History of Present Illness: This is a 57-year-old male. Date of admission 10/06/2017. Past medical history includes coronary artery disease status post CABG 3 currently with unamenable vessels for bypass, peripheral arterial disease, ejection fraction 20%, diabetes mellitus type 2, COPD, hepatitis C antibody positive, history of basal cell carcinoma and recent diagnosis with osteomyelitis of the right second toe status post cefazolin therapy as an outpatient which completed 4 days ago. Patient was in his normal state of health over the past couple days patients with increasing abdominal pain including nausea and vomiting and unable to take his home medications. He has been asked complaining of chills, sweats and generalized tremors. Today, he presented to [facility] for further evaluation and treatment. He denies any chest pain per se, shortness of breath. Denies any hematemesis or melena. Patient is noted to be in acute kidney injury creatinine 1.4. Troponin was elevated at 1.86. EKG showed nonspecific ST-T changes. Of note, patient has been off his apixaban because he is unable to afford $550 a month for this medication. Blood sugar was greater than 400. Lactate was 6.4. Patient received approximately liter of crystalloid resuscitation in the ED. His blood pressure is currently stable with hematocrit and 65. He is awake and interactive. His amputations had a second toe does not appear to be infected. He has vague diffuse abdominal pain/nonspecific with no guarding or rigidity. Multiple laboratories are still pending. Patient was started on a insulin heparin drip. We are asked to admit the patient. Inpatient Certification: I certify that the inpatient services were ordered in accordance with Medicare regulations governing the order. This includes certification that hospital inpatient services are reasonable and necessary and in the case of services not specified as inpatient-only under 42 CFR 419.22(n), that they are appropriately provided as inpatient services in accordance to with the 2-midnight benchmark under 43 CFR 412.3(e) Estimated Total Length of Stay (Days): 3 Plans for Post Hospital Care: Not yet determined Review of Systems Constitutional: Reports body ache(s), Reports chills, Reports excessive sweating , Reports fatigue, Reports fever(s), Reports malaise, Reports night sweats, Reports weakness, Denies headache(s) Eyes: Denies blind spots, Denies blurry vision, Denies double vision Ears, Nose, Mouth, and Throat: Reports dizziness, Reports dry mouth, Denies abnormal hearing, Denies hearing loss, Denies mouth pain, Denies nasal obstruction, Denies nose pain, Denies throat swelling Cardiovascular: Reports chest pain with activity, Reports excessive sweating, Reports fast heart rate, Reports shortness of breath with activity, Denies chest pain, Denies chest pain at rest, Denies fainting, Denies foot swelling, Denies leg swelling Respiratory: Reports shortness of breath, Denies change in phlegm color, Denies chest congestion, Denies cough, Denies coughing up blood, Denies wheezing Gastrointestinal: Reports abdominal pain, Reports nausea, Reports vomiting, Denies coffee ground vomit, Denies constipation, Denies vomiting blood Genitourinary: Denies urinary frequency, Denies urinary hesitancy Musculoskeletal: Reports abnormal walking, Reports body aches, Denies back pain , Denies joint pain, Denies joint swelling Skin/Breast: Reports wounds, Denies bleeding lesions, Denies changing lesions, Denies itching, Denies skin ulcer Neurologic: Denies abnormal movements, Denies loss of vision, Denies tingling/ numbness/burning sensations Psychiatric: Denies anxiety, Denies depression Endocrine: Reports increased thirst, Denies cold intolerance, Denies heat intolerance Hematologic/Lymphatic: Denies easy bleeding Allergic/Immunologic: Denies hives PMFSH - History History 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, 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 - Medical History Medical History: Medical History (Last Updated 10/06/17 @ 11:28 by Ney Rios MD) Amputated toe CHF (congestive heart failure) COPD (chronic obstructive pulmonary disease) Coronary artery disease Diabetes mellitus Essential hypertension Hepatitis C antibody positive in blood Hyperlipidemia Myocardial infarction Osteomyelitis of toe Peripheral arterial disease 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 - Surgical History Surgical History: Surgical History (Last Updated 10/06/17 @ 11:27 by Ney Rios MD) AICD (automatic cardioverter/defibrillator) present History of appendectomy History of cardiac cath Previous back surgery S/P CABG x 3 - Family History Family History: Family History (Last Updated 10/06/17 @ 11:29 by Ney Rios MD) Mother Lung cancer Father CVA (cerebral vascular accident) - Tobacco History Second Hand Smoke Exposure: Yes Tobacco Use In Past 30 Days: No Smoking Status: Former smoker Tobacco Type: Cigarettes Years Smoked: 40 - Alcohol History How Often Do You Have a Drink Containing Alcohol: 2 to 4 times a month - Substance Use History Substance History: No History of Abuse - Travel History History of Recent Travel: No Recent Travel in the [place] Within the Last 8 Weeks: No Recent Travel Out of the Country Within the Last 8 Weeks: No - Immunization History Tetanus Immunization: >5 Years Hx Influenza Vaccine This Season: No Medications and Allergies Active Medications: Active Medications Acetaminophen (Tylenol) 650 mg PO Q6H PRN PRN Reason: PAIN 1-10 AND/OR FEVER >101F Hydrocodone Bitart/Acetaminophen ([place] 5/325) 1 tab PO Q4H PRN PRN Reason: PAIN SCALE 1 TO 5 Al Hydroxide/Mg Hydroxide (Milk Of Magnmikayla Liq) 30 ml PO Q12H PRN PRN Reason: Mild Constipation Albuterol (Albuterol Neb (Prn)) 2.5 mg NEB Q2HR NEB PRN PRN Reason: SHORTNESS OF BREATH/WHEEZING Albuterol (Duoneb Neb (Erika)) 1 ampul NEB Q4HR NEB ERIKA Artificial Tears (Genteal Severe Dry Eye Relief 0.3% Opth Gel) 1 drops EACH EYE HS ERIKA Atorvastatin Calcium (Lipitor) 40 mg PO DAILY ERIKA Bisacodyl (Dulcolax Supp) 10 mg RECTAL DAILY PRN PRN Reason: SEVERE CONSITIPATION Carvedilol (Coreg) 6.25 mg PO BID ERIKA Chlorhexidine Gluconate (Chlorhexidine 2% Cloth) 3 pack TOPICAL DAILY@0400 ERIKA Stop: 10/12/17 03:59 Chlorhexidine Gluconate (Chlorhexidine 2% Cloth) 3 pack TOPICAL DAILY@0400 PRN PRN Reason: Extra cloth needed Stop: 10/12/17 03:59 Insulin Human Regular 100 unit (/ Sodium Chloride) 100 mls @ 9 mls/hr IV.CONT TITRATE PRN; Protocol PRN Reason: See protocol Last Admin: 10/06/17 11:11 Dose: 9 units/hr, 9 mls/hr Sodium Chloride (Ns Inj) 1,000 mls @ 84 mls/hr IV.CONT .[id number] [facility] Heparin Sodium/Dextrose (Heparin/D5w 25,000 U/250 Ml) 25,000 unit in 250 mls @ 0 mls/hr IV.CONT TITRATE PRN; Protocol PRN Reason: Per Protocol Dextrose/Sodium Chloride (D5w/Normal Saline Inj) 1,000 mls @ 200 mls/hr IV.CONT .Q5H ERIKA Sodium Chloride (Ns Inj) 1,000 mls @ 250 mls/hr IV.CONT .Q4H [facility]RI[facility] Sodium Phosphate 15 mmol/ (Sodium Chloride) 105 mls @ 25 mls/hr IV.SIG UNSCH PRN PRN Reason: for Phosphate Level < 1.0 Pharmacy Profile Note (Vancomycin Consult Pharmacy) 0 mls @ 0 mls/hr OTHER UNSCH ERIKA Piperacillin/Tazobactam/Dextrose (Zosyn 3.375 Gm Premix) 50 mls @ 100 mls/hr IV.SIG Q6H ERIKA Lactulose (Lactulose Liq) 30 ml PO DAILY PRN PRN Reason: SEVERE CONSITIPATION Morphine Sulfate (Morphine Inj) 2 mg IV.PUSH Q2H PRN PRN Reason: PAIN SCALE 6 TO 10 Ondansetron HCl (Zofran Inj) 4 mg IV.PUSH Q6H PRN PRN Reason: NAUSEA OR VOMITING Pantoprazole Sodium (Protonix) 40 mg PO DAILY [facility] Senna/Docusate Sodium (Zenaida-Colace) 1 tab PO BID [facility] Sennosides (Senokot) 17.2 mg PO Q12H PRN PRN Reason: Moderate Constipation Sodium Bicarbonate (Sodium Bicarbonate 8.4% Inj) 50 meq IV.PUSH UNSCH PRN PRN Reason: for pH 6.9 to 7.0 Sodium Chloride (Ns Flush) 2 ml IV.FLUSH UNSCH PRN PRN Reason: FLUSH AFTER USING IV ACCESS Last Admin: 10/06/17 09:20 Dose: 2 ml Sodium Chloride (Ns Flush) 2 ml IV.FLUSH BID [facility] Sodium Chloride (Ns Flush) 2 ml IV.FLUSH PRN PRN PRN Reason: FLUSH AFTER USING IV ACCESS Allergies Allergy/AdvReac Type Severity Reaction Status Date / Time potassium iodide Allergy Severe Swelling Verified 10/06/17 09:36 povidone-iodine Allergy Severe Swelling Verified 10/06/17 09:36 shellfish derived Allergy Severe Swelling Verified 10/06/17 09:36 sodium iodide Allergy Severe Swelling Verified 10/06/17 09:36 sodium iodide Allergy Severe Swelling Verified 10/06/17 09:36 Home Medications Medication Instructions Recorded Confirmed Type atorvastatin 40 mg PO DAILY 10/06/17 10/06/17 History carvedilol 6.25 mg PO BID 10/06/17 10/06/17 History glyburide 2.5 mg PO BID 10/06/17 10/06/17 History lisinopril 20 mg PO DAILY 10/06/17 10/06/17 History magnesium oxide 400 mg PO BID 10/06/17 10/06/17 History metformin 850 mg PO TID 10/06/17 10/06/17 History nitroglycerin [Nitrostat] 0.4 mg SUBLINGUAL Q5-15M PRN 10/06/17 10/06/17 History pravastatin 40 mg PO DAILY 10/06/17 10/06/17 History spironolactone 50 mg PO DAILY 10/06/17 10/06/17 History Results - Labs CBC & Chem 7: 10/06/17 11:55 10/06/17 08:35 Labs: Short CBC 10/06/17 Range/Units 08:35 WBC 13.0 H (4.0-11.0) th/mm3 Hgb 11.5 L (13.0-17.0) gm/dL Hct 34.5 L (39.0-51.0) % Plt Count 142 L (150-450) th/mm3 BMP 10/06/17 08:35 Sodium 134 L Potassium 4.8 Chloride 102 Carbon Dioxide 13.6 L BUN 30 H Creatinine 1.38 H Calcium 9.2 Cardiac Enzymes 10/06/17 Range/Units 08:35 Total Creatine Kinase 90 (39-308) U/L Troponin I 1.86 H* (0.02-0.05) ng/mL - Imaging Impressions Chest X-Ray 10/06/17 08:34 CONCLUSION: No evidence of congestive heart failure. Stable mild cardiomegaly. Otherwise negative exam. Exam Vital signs: Vital Signs 10/06/17 08:24 10/06/17 08:34 10/06/17 08:49 Pulse Rate 111 H Respiratory Rate 24 Blood Pressure 100/59 L Pulse Oximetry 98 98 98 10/06/17 09:55 10/06/17 10:00 10/06/17 11:04 Pulse Rate 104 H 104 H 94 H Respiratory Rate 19 21 17 Blood Pressure 104/66 102/70 104/63 Pulse Oximetry 97 99 Intake & Output 10/05/17 10/06/17 10/06/17 18:59 06:59 18:59 Intake Total 1000 / 1000 Balance 1000 / 1000 Weight 90.718 kg Intake: IV 1000 / 1000 NS Inj 1,000 ML @ Wide Open IV. 1000 / 1000 SIG BOLUS ONE Rx#:[id number] - Constitutional mild distress, thin, diaphoretic, disheveled, cooperative - Routine HEENT Exam Head: Present: normocephalic, atraumatic. Absent: abrasion, laceration, facial swelling Eye: Present: EOMI, PERRL ENT: Present: mucous membranes dry, oropharynx clear, TM's clear bilaterally - Routine Neck Exam Present: supple, full ROM. Absent: JVD, carotid bruit - Routine Chest/Breast/Axilla Exam Chest wall: Absent: tenderness Breast: Absent: tenderness Axillae: Absent: lymphadenopathy - Routine Respiratory Exam Present: CTA bilaterally. Absent: accessory muscle use, prolonged expiratory phase, rales, respiratory distress - Routine Cardiovascular Exam Present: RRR, S1, S2, murmur. Absent: bradycardia, tachycardia - Routine Abdominal Exam Present: soft, tenderness. Absent: distended, rebound, guarding, firm - Routine Extremities Exam Present: amputation. Absent: cyanosis, clubbing, edema, joint swelling Comments: Amputation to right second toe - Routine Skin Exam Present: intact, scars, wounds - Routine Neurological Exam Present: CN II-XII intact, normal reflexes, moving all extremities. Absent: motor deficit Caprini VTE Risk Assessment Caprini VTE Risk Assessment: Moderate/High Risk (score >= 2) Caprini Risk Assessment Model: Point Value = 1 Point Value = 2 Point Value = 3 Point Value = 5 Age 41-60 Minor surgery BMI > 25 kg/m2 Swollen legs Varicose veins or History of unexplained or recurrent spontaneous Oral contraceptives or hormone replacement Sepsis (< 1 month) Serious lung disease, including pneumonia (< 1 month) Abnormal pulmonary function Acute myocardial infarction Congestive heart failure (< 1 month) History of inflammatory bowel disease Medical patient at bed rest Age 61-74 Arthroscopic surgery Major open surgery (> 45 min) Laparoscopic surgery (> 45 min) Malignancy Confined to bed (> 72 hours) Immobilizing plaster cast Central venous access Age >= 75 History of VTE Family history of VTE Factor V Leiden Prothrombin [id number] Lupus anticoagulant Anticardiolipin antibodies Elevated serum homocysteine Heparin-induced thrombocytopenia Other congenital or acquired thrombophilia Stroke (< 1 month) Elective arthroplasty Hip, pelvis, or leg fracture Acute spinal cord injury (< 1 month) Prophylaxis Regimen: Total Risk Factor Score Risk Level Prophylaxis Regimen 0-1 Low Early ambulation 2 Moderate Order ONE of the following: *Sequential Compression Device (SCD) *Heparin 5000 units SQ BID 3-4 Higher Order ONE of the following medications: *Heparin 5000 units SQ TID *Enoxaparin/Lovenox 40 mg SQ daily (WT < 150 kg, CrCl > 30 mL/min) *Enoxaparin/Lovenox 30 mg SQ daily (WT < 150 kg, CrCl > 10-29 mL/min) *Enoxaparin/Lovenox 30 mg SQ BID (WT < 150 kg, CrCl > 30 mL/min) AND/OR *Sequential Compression Device (SCD) 5 or more Highest Order ONE of the following medications: *Heparin 5000 units SQ TID (Preferred with Epidurals) *Enoxaparin/Lovenox 40 mg SQ daily (WT < 150 kg, CrCl > 30 mL/min) *Enoxaparin/Lovenox 30 mg SQ daily (WT < 150 kg, CrCl > 10-29 mL/min) *Enoxaparin/Lovenox 30 mg SQ BID (WT < 150 kg, CrCl > 30 mL/min) AND *Sequential Compression Device (SCD) Assessment and Plan - Assessment and Plan Plan: Neuro/Psych: Acute toxic metabolic encephalopathy secondary to hyperglycemia possibly sepsis Acetaminophen 650 mg a mouth every 6 hours as needed fever Hydrocodone/acetaminophen 5/325 1 tablet every 4 hours as needed pain 1 through 5 Morphine sulfate 2 mg IV every 2 hours as needed pain 6-10 CV: PAD Coronary disease history of CABG 3 Chronic ischemic cardiopathy ejection fraction 25% Essential hypertension Hyperlipidemia Lactic acidosis Elevated troponin I 1.86 Status post AICD placement Resume home medication pravastatin 40 mg daily Holding lisinopril 20 mg by mouth daily in light of acute kidney injury. Resume when clinically indicated Continue carvedilol 6.25 mg twice daily with holding parameters for hypotension and low heart rate On nitroglycerin 0.4 mg every 5 minutes 3 for chest pain at home. Troponin every 6 hours 2 ordered. Serial lactates until cleared. Routine cardiology consultation EKG showed possible lateral nonspecific depressive changes. Sinus tachycardia. Holding Spironolactone 50 mg daily. Resp: History of COPD Prior tobacco abuse Nasal cannula to maintain saturations greater than or equal to 92% Incentive spirometry while awake Albuterol/ipratropium aerosols every 4 hours with albuterol aerosols every 2 hours as needed for dyspnea Chest x-ray revealed no acute cardiopulmonary findings. GI: Abdominal pain NOS History of hepatitis C antibody positive Liver function tests, amylase and lipase all pending Currently n.p.o. except for medications Follow-up on laboratories above. Check hepatitis C genotype and viral load. : No indication for Allison catheter Endo: Hyperglycemia with beta hydroxybutyrate pending Diabetes mellitus type 2 Initiated on insulin drip per DKA protocol. Currently holding glyburide 2.5 mg twice daily and metformin 850 mg 3 times daily Check hemoglobin A1c and lipid profile Renal: Acute kidney injury Monitor urine output Accurate I's and O's every hour Recheck BMP every 6 hours per DKA protocol Heme: Leukocytosis Normocytic anemia Thrombocytopenia History of basal cell carcinoma Currently on heparin drip at 500 units an hour. Monitor CBC daily. Follow trends ID: Blood cultures 2, UA and urine Legionella pneumococcal antigen ordered. Influenza a and B ordered Day #1 vancomycin and piperacillin/tazobactam. MSK: Status post amputation of the right second toe secondary to osteomyelitis Wound care evaluate and treat FEN: Hyponatremia Check BMP every 6 hours 2. Replace electrolytes as clinically indicated. Noted potassium allergy. Access -Utilize peripheral IV. Central line if indicated Prophylaxis -GI -pantoprazole -DVT -SCD/heparin drip Level 3 admission Code Status: Full code Discussed Condition With: Patient. Dr. Irizarry/ED physician. Care plan discussed and all questions answered.
[2017-10-06] MEDS ORDERED: Vancomycin Consult Pharmacy 1 EACH OTHER SCH (12:00)
[2017-10-06 12:07] LABS: Hematocrit 34.4 % (39.0-51.0); Hemoglobin 11.4 gm/dL (13.0-17.0); Mean Corpuscular Hemoglobin 28.3 pg (27.0-34.0); Mean Corpuscular Volume 85.7 fL (80.0-100.0); Mean Platelet Volume 7.9 fL (7.0-11.0); Platelet Count 138 th/mm3 (150-450); Red Blood Count 4.01 mil/mm3 (4.50-5.90); Red Cell Distribution Width 14.8 % (11.6-17.2); White Blood Count 11.5 th/mm3 (4.0-11.0)
[2017-10-06 12:32] LABS: Albumin 2.9 g/dL (3.4-5.0)
[2017-10-06 12:38] LABS: C-Reactive Protein 18.6 mg/dL (0.00-0.30); Total Protein 6.7 g/dL (6.4-8.2)
[2017-10-06 12:42] LABS: Bilirubin,Urine Negative (Negative); Clarity,Urine Clear (Clear); Color,Urine Straw (Yellw/Straw); Glucose,Urine (UA) 500 or Greater mg/dL (Negative); Leukocyte Esterase,Urine Negative (Negative); Nitrite,Urine Negative (Negative); Specific Gravity,Urine 1.027 (1.002-1.035)
[2017-10-06 12:45] LABS: Chol/HDL Ratio 2.91 Ratio; HDL Cholesterol 27.8 mg/dL (40.0-60.0)
[2017-10-06] MEDS ORDERED: Dextrose 50% in Water 50 ML Vial IV.PUSH PRN (12:58)
[2017-10-06 13:11] LABS: Magnesium 2.3 mg/dL (1.5-2.5); Phosphorus 2.5 mg/dL (2.5-4.9)
[2017-10-06] MEDS: Heparin Drip 25,000 UNIT/250 ML BAG IV.CONT PRN (13:52)
[2017-10-06] MEDS: Sod Chloride 0.9% Inj 1,000 ML IV.CONT SCH (14:11)
[2017-10-06] MEDS: Piperacil/Tazo 3.375 GM Premix 50 ML IV.SIG SCH ×2 (14:11→21:05)
[2017-10-06] MEDS: Insulin NovoLOG Aspart Correctional Sugar Inj SQ SCH ×2 (16:46→21:05)
[2017-10-06] MEDS: Vancomycin Inj 1,750 MG in Sodium Chlor 0.9% Inj 500 ML IV.SIG SCH (16:46)
[2017-10-06] MEDS: Carvedilol 6.25 MG Tablet PO SCH (21:05)
[2017-10-06] MEDS: Senna/Docusate Sodium 8.6/50 MG Tablet PO SCH (21:06)
[2017-10-06] MEDS: Hypromellose 0.3% Opth Gel 10 GM Bottle EACH EYE SCH (21:07)
--- NOTE | 2017-10-06 22:48 | CT ---
EXAM DATE: 10/06/2017 10:42 PM EDT AGE/SEX: 57 years / Male INDICATIONS: Abdominal pain; DKA. CLINICAL DATA: This is the patient's initial encounter. Patient reports that signs and symptoms have been present for 1 day and indicates a pain score of 5/10. MEDICAL/SURGICAL HISTORY: Diabetes. Congestive heart failure. Hepatitis C. Myocardial infarc tion Pacemaker. Appendectomy. CABG. RADIATION DOSE: 7.64 CTDI (mGy) COMPARISON: [facility], CTA RUNOFF W 3D RECON, 08/19/2017. . TECHNIQUE: Multiple contiguous axial images were obtained through the abdomen. Images were obtained using multiple row detector helical technique. Using automated exposure control and adjustment of the mA and/or kV according to patient size, radiation dose was kept as low as reasonably achievable to o btain optimal diagnostic quality images. DICOM format image data is available electronically for rev iew and comparison. FINDINGS: Lower chest: There is increased density at the posterior lower lobes.. A cardiac pacing lead is seen. The patient is status post sternotomy. Liver: The liver has a homogeneous density without space-occupying lesion. There is no dilation of th e biliary tree. Spleen: Homogeneous density without enlargement. Pancreas: Unremarkable without mass or calcification. Kidneys: Normal in size and shape. No evidence of mass or hydronephrosis. There is persistent mild n onspecific perinephric stranding. Adrenal Glands: Unremarkable. Aorta: The aorta and proximal iliac vessels are grossly unremarkable without aneurysmal dilation. T here are scattered atherosclerotic calcifications. Bowel/Mesentery: The bowel loops are grossly unremarkable. The cecum and sigmoid colon have a normal configuration. Abdominal Wall: Intact. Retroperitoneum: No evidence of adenopathy in the retrocrural, para-aortic, or deep pelvic regions. Bladder: Contours are smooth. Reproductive Organs: No abnormal masses or calcifications seen. Inguinal: The inguinal region is unremarkable without evidence of adenopathy. Bony Structures: There are surgical hardware in the lower lumbar spine with transpedicular screws. P atient status post laminectomy. There is degenerative change in the mid lumbar spine. CONCLUSION: 1. No acute abnormality seen. 2. Increased density at the posterior lower lobes likely related to mild atelectasis. 3. Scattered atherosclerotic calcifications throughout the arterial system. 4. Degenerative and postsurgical change in the lumbar spine. Electronically signed by: Stanton Garza MD 10/06/2017 10:47 PM EDT
[2017-10-07] MEDS: Sod Chloride 0.9% Inj 1,000 ML IV.CONT SCH ×2 (00:35→14:54)
[2017-10-07] MEDS: Insulin NovoLOG Aspart Correctional Sugar Inj SQ SCH ×5 (00:36→23:03)
[2017-10-07] MEDS: Piperacil/Tazo 3.375 GM Premix 50 ML IV.SIG SCH ×4 (00:36→17:00)
[2017-10-07 02:32] LABS: Activated Partial Thrombo Time 32.2 sec (24.3-30.1); INR 1.1 Ratio; Prothrombin Time 11.4 sec (9.8-11.6)
[2017-10-07] MEDS ORDERED: Chlorhexidine Gluconate 2% 1 Pack (2 Cloths) TOPICAL PRN (04:00)
[2017-10-07 05:08] LABS: Baso # (Auto) 0.2 th/mm3 (0.0-0.2); Baso % (Auto) 1.8 % (0.0-2.0); Eos % (Auto) 0.1 % (0.0-4.0); Hematocrit 32.2 % (39.0-51.0); Lymph # (Auto) 0.3 th/mm3 (1.0-4.8); Lymph % (Auto) 3.5 % (9.0-44.0); Mean Corpuscular HGB Conc 34.2 % (32.0-36.0); Mean Corpuscular Hemoglobin 28.7 pg (27.0-34.0); Mean Corpuscular Volume 83.9 fL (80.0-100.0); Mean Platelet Volume 8.3 fL (7.0-11.0); Mono # (Auto) 0.8 th/mm3 (0.0-0.9); Neut # (Auto) 8.3 th/mm3 (1.8-7.7); Neut % (Auto) 86.6 % (16.0-70.0); Platelet Count 111 th/mm3 (150-450); Red Blood Count 3.84 mil/mm3 (4.50-5.90); Red Cell Distribution Width 14.8 % (11.6-17.2); White Blood Count 9.6 th/mm3 (4.0-11.0)
[2017-10-07] MEDS: Chlorhexidine Gluconate 2% 1 Pack (2 Cloths) TOPICAL SCH (05:11)
[2017-10-07 05:26] LABS: Calcium 8.3 mg/dL (8.5-10.1); Magnesium 2.2 mg/dL (1.5-2.5); Phosphorus 2.1 mg/dL (2.5-4.9); Potassium 3.8 meq/L (3.5-5.1)
[2017-10-07 05:28] LABS: Troponin I 6.7 ng/mL (0.02-0.05)
[2017-10-07] MEDS ORDERED: Magnesium Sulfate Inj 2 GM in Sodium Chlor 0.9% Inj 96 ML IV.SIG PRN (08:48)
[2017-10-07] MEDS ORDERED: Magnesium Sulfate Inj 4 GM in Sodium Chlor 0.9% Inj 92 ML IV.SIG PRN (08:48)
[2017-10-07] MEDS ORDERED: Magnesium Oxide 400 MG Tablet PO PRN (08:48)
[2017-10-07] MEDS ORDERED: Sodium Phosphate Inj 30 MMOL in Sodium Chlor 0.9% Inj 250 ML IV.SIG PRN (08:48)
--- NOTE | 2017-10-07 08:53 | P.PNCC ---
Subjective Subjective Remarks/Hospital Course: This is a 57-year-old male. Date of admission 10/06/2017. Past medical history includes coronary artery disease status post CABG 3 currently with unamenable vessels for bypass, peripheral arterial disease, ejection fraction 20%, diabetes mellitus type 2, COPD, hepatitis C antibody positive, history of basal cell carcinoma and recent diagnosis with osteomyelitis of the right second toe status post cefazolin therapy as an outpatient which completed 4 days ago. Patient was in his normal state of health over the past couple days patients with increasing abdominal pain including nausea and vomiting and unable to take his home medications. He has been asked complaining of chills, sweats and generalized tremors. Today, he presented to [facility] for further evaluation and treatment. He denies any chest pain per se, shortness of breath. Denies any hematemesis or melena. Patient is noted to be in acute kidney injury creatinine 1.4. Troponin was elevated at 1.86. EKG showed nonspecific ST-T changes. Of note, patient has been off his apixaban because he is unable to afford $550 a month for this medication. Blood sugar was greater than 400. Lactate was 6.4. Patient received approximately liter of crystalloid resuscitation in the ED. His blood pressure is currently stable with hematocrit and 65. He is awake and interactive. His amputations had a second toe does not appear to be infected. He has vague diffuse abdominal pain/nonspecific with no guarding or rigidity. Multiple laboratories are still pending. Patient was started on a insulin heparin drip. We are asked to admit the patient. 10/07 Patient is lying in bed in NAD. On Heparin drip. Afebrile. Objective Vital Signs / I&O: Vital Signs 10/06/17 08:49 10/06/17 09:55 10/06/17 10:00 Temperature Pulse Rate 104 H 104 H Respiratory Rate 19 21 Blood Pressure 104/66 102/70 Pulse Oximetry 98 97 10/06/17 11:04 10/06/17 11:46 10/06/17 12:00 Temperature 98.5 F Pulse Rate 94 H 104 H 101 H Respiratory Rate 17 25 H 15 Blood Pressure 104/63 Pulse Oximetry 99 99 100 10/06/17 12:11 10/06/17 13:00 10/06/17 14:00 Temperature Pulse Rate 100 H 115 H 110 H Respiratory Rate 25 H 27 H 25 H Blood Pressure 122/68 Pulse Oximetry 99 95 100 10/06/17 15:00 10/06/17 15:55 10/06/17 16:00 Temperature Pulse Rate 124 H 114 H 111 H Respiratory Rate 23 28 H 27 H Blood Pressure Pulse Oximetry 100 94 L 10/06/17 16:38 10/06/17 17:00 10/06/17 18:00 Temperature Pulse Rate 120 H 114 H 103 H Respiratory Rate 25 H 18 33 H Blood Pressure 115/66 Pulse Oximetry 100 100 100 10/06/17 19:00 10/06/17 19:37 10/06/17 19:41 Temperature Pulse Rate 92 H 91 H Respiratory Rate 27 H 24 22 Blood Pressure 117/63 Pulse Oximetry 99 10/06/17 19:46 10/06/17 20:00 10/06/17 21:00 Temperature 97.7 F Pulse Rate 88 87 Respiratory Rate 27 H 22 Blood Pressure 106/56 L 106/56 L Pulse Oximetry 100 100 100 10/06/17 22:00 10/06/17 23:00 10/07/17 00:00 Temperature 98.2 F Pulse Rate 83 108 H 91 H Respiratory Rate 22 25 H 23 Blood Pressure 97/53 L 147/65 H 88/54 L Pulse Oximetry 99 98 99 10/07/17 00:46 10/07/17 01:00 10/07/17 02:00 Temperature Pulse Rate 86 86 98 H Respiratory Rate 16 17 18 Blood Pressure 101/57 L 111/66 Pulse Oximetry 98 100 10/07/17 03:00 10/07/17 03:12 10/07/17 04:00 Temperature 98.3 F Pulse Rate 105 H 103 H 102 H Respiratory Rate 19 24 19 Blood Pressure 105/62 113/59 L Pulse Oximetry 98 98 10/07/17 05:00 10/07/17 06:00 10/07/17 07:30 Temperature Pulse Rate 92 H 86 81 Respiratory Rate 19 24 12 Blood Pressure 97/63 L 107/57 L Pulse Oximetry 99 100 10/07/17 07:32 Temperature Pulse Rate Respiratory Rate Blood Pressure Pulse Oximetry 100 Intake & Output 10/06/17 10/07/17 10/07/17 18:59 06:59 18:59 Intake Total 1050 / 1050 1787.5 / 1787.5 Output Total 600 / 600 Balance 1050 / 1050 1187.5 / 1187.5 Weight 90.718 kg 85.5 kg Intake: IV 1050 / 1050 1787.5 / 1787.5 NovoLIN R (IV Infusion) 100 20 / 20 UNIT In NS Inj 99 ML @ 9 UNITS/ HR 9 mls/hr IV.CONT TITRATE PRN Rx#:[id number] NS Inj 1,000 ML @ 84 mls/hr IV. 1000 / 1000 CONT .[id number] [facility] Rx#:[id number] Magnesium Sulfate Inj 2 GM In 100 / 100 NS Inj 96 ML @ 50 mls/hr IV.SIG ONCE ONE Rx#:[id number] Zosyn 3.375 GM Premix 50 ML @ 50 / 50 150 / 150 100 mls/hr IV.SIG Q6H [facility] Rx#: [id number] NS Inj 1,000 ML @ Wide Open IV. 1000 / 1000 SIG BOLUS ONE Rx#:[id number] Vancomycin Inj 1,750 MG In NS 517.5 / 517.5 Inj 500 ML @ 250 mls/hr IV.SIG Q24H [facility] Rx#:[id number] Output: Urine 600 / 600 Other: Date of Last Bowel Movement 10/04/17 10/04/17 # Bowel Movements 0 Result Diagrams: 10/07/17 04:28 10/07/17 04:28 Other Results: Laboratory Results - last 12 hr 10/06/17 10/07/17 10/07/17 21:02 00:34 02:00 WBC RBC Hgb Hct MCV MCH MCHC RDW Plt Count MPV Neut % (Auto) Lymph % (Auto) [place] % (Auto) Eos % (Auto) Baso % (Auto) Neut # (Auto) Lymph # (Auto) [place] # (Auto) Eos # (Auto) Baso # (Auto) WBC Differential Differential Comment PT 11.4 INR 1.1 APTT 32.2 H Sodium Potassium Chloride Carbon Dioxide Anion Gap BUN Creatinine Estimated GFR POC Glucose 192 H 166 H Random Glucose Lactic Acid Calcium Phosphorus Magnesium Ammonia Total Creatine Kinase Troponin I 10/07/17 10/07/17 10/07/17 04:28 04:28 04:28 WBC 9.6 RBC 3.84 L Hgb 11.0 L Hct 32.2 L MCV 83.9 MCH 28.7 MCHC 34.2 RDW 14.8 Plt Count 111 L MPV 8.3 Neut % (Auto) 86.6 H Lymph % (Auto) 3.5 L [place] % (Auto) 8.0 Eos % (Auto) 0.1 Baso % (Auto) 1.8 Neut # (Auto) 8.3 H Lymph # (Auto) 0.3 L [place] # (Auto) 0.8 Eos # (Auto) 0.0 Baso # (Auto) 0.2 WBC Differential . Differential Comment Auto diff final PT INR APTT Sodium Potassium Chloride Carbon Dioxide Anion Gap BUN Creatinine Estimated GFR POC Glucose Random Glucose Lactic Acid 1.5 Calcium Phosphorus Magnesium Ammonia 13 Total Creatine Kinase Troponin I 10/07/17 10/07/17 04:28 05:13 WBC RBC Hgb Hct MCV MCH MCHC RDW Plt Count MPV Neut % (Auto) Lymph % (Auto) [place] % (Auto) Eos % (Auto) Baso % (Auto) Neut # (Auto) Lymph # (Auto) [place] # (Auto) Eos # (Auto) Baso # (Auto) WBC Differential Differential Comment PT INR APTT Sodium 141 Potassium 3.8 D Chloride 111 H D Carbon Dioxide 21.0 Anion Gap 9 BUN 41 H Creatinine 1.17 Estimated GFR 64 L POC Glucose 146 H Random Glucose 150 H D Lactic Acid Calcium 8.3 L D Phosphorus 2.1 L Magnesium 2.2 Ammonia Total Creatine Kinase 121 Troponin I 6.70 H* Imaging: Abdomen/Pelvis CT 10/06/17 00:00 CONCLUSION: 1. No acute abnormality seen. 2. Increased density at the posterior lower lobes likely related to mild atelectasis. 3. Scattered atherosclerotic calcifications throughout the arterial system. 4. Degenerative and postsurgical change in the lumbar spine. Chest X-Ray 10/06/17 08:34 CONCLUSION: No evidence of congestive heart failure. Stable mild cardiomegaly. Otherwise negative exam. Objective Remarks: GENERAL: Patient is 57 yo lying in bed in NAD SKIN: Warm and dry. HEAD: Normocephalic. EYES: No scleral icterus. No injection or drainage. NECK: Supple, trachea midline. No JVD or lymphadenopathy. CARDIOVASCULAR: Regular rate and rhythm without murmurs, gallops, or rubs. RESPIRATORY: Breath sounds equal bilaterally. No accessory muscle use. GASTROINTESTINAL: Abdomen soft, non-tender, nondistended. MUSCULOSKELETAL: No cyanosis, or edema. Neuro: Awake, alert Assessment and Plan - Assessment and Plan Plan: Neuro/Psych: Acute toxic metabolic encephalopathy secondary to hyperglycemia possibly sepsis Acetaminophen 650 mg a mouth every 6 hours as needed fever Hydrocodone/acetaminophen 5/325 1 tablet every 4 hours as needed pain 1 through 5 Morphine sulfate 2 mg IV every 2 hours as needed pain 6-10 CV: PAD Coronary disease history of CABG 3 Chronic ischemic cardiopathy ejection fraction 25% Essential hypertension Hyperlipidemia Lactic acidosis Elevated troponin I 1.86 Status post AICD placement On pravastatin 40 mg daily Holding lisinopril 20 mg by mouth daily in light of acute kidney injury. Resume when clinically indicated Continue carvedilol 6.25 mg twice daily On nitroglycerin 0.4 mg every 5 minutes 3 for chest pain at home. Serial Troponin Lactic acid cleared- 1.5 Cards is following- Dr. Aguirre, continue with Heparin drip will likely need cardiac cath in next few days Obtain 2D echo r/o vegetations Resp: History of COPD Prior tobacco abuse Nasal cannula to maintain saturations greater than or equal to 92% Incentive spirometry while awake Albuterol/ipratropium aerosols every 4 hours with albuterol aerosols every 2 hours as needed for dyspnea Chest x-ray revealed no acute cardiopulmonary findings. GI: Abdominal pain NOS History of hepatitis C antibody positive Start Diabetic/cardiac diet Check hepatitis C genotype and viral load. Endo: Hyperglycemia Diabetes mellitus type 2 Off insulin drip, now on SSI with accuchecks Renal: Acute kidney injury Renal function improving with Cr: 1.17 from 1.38 Monitor renal function, I/O's, electrolytes replacement per protocol On NS@84ml/hr. Heme: Leukocytosis Normocytic anemia Thrombocytopenia History of basal cell carcinoma Monitor CBC, coags- on Heparin drip ID: Gram positive bacteremia Follow up on Blood cultures , urine Legionella pneumococcal antigen, Influenza screening all pending Continue abx ( vancomycin and piperacillin/tazobactam) Check BC x 2 sets, ID eval Check echo r/o vegetations MSK: Status post amputation of the right second toe secondary to osteomyelitis Wound care evaluate and treat Access -Utilize peripheral IV. Central line if indicated Prophylaxis -GI -pantoprazole -DVT -SCD/heparin drip Will sign off and transfer care to [facility] Level 2
--- NOTE | 2017-10-07 09:15 | MB ---
cc: Tyesha Aguirre MD, DATE: 10/06/2017 REASON FOR CONSULTATION: increased troponin, nonsustained ventricular tachycardia. HISTORY OF PRESENT ILLNESS: Mr. Estrada is a 57-year-old gentleman with history of coronary artery disease, coronary artery bypass grafting. The patient had a previous defibrillator implanted in May 2007 and he has history of diabetes mellitus, peripheral vascular disease, toe infection, osteomyelitis. He was at home, he began to have chest pain since Saturday and some shortness of breath. The patient ultimately decided to come yesterday to the hospital. DKA was suspected. During hospitalization, DKA management was initiated. Troponin coming back. The first set at 1.86. The last troponin was 7.05. I was consulted for further evaluation and management. The patient was reviewed. The patient was evaluated. ALLERGIES: POTASSIUM, SHELLFISH, IODINE. SOCIAL HISTORY: Does denies smoking and drinking. FAMILY HISTORY: Noncontributory to his current medical condition. MEDICATIONS: Currently, he is on Acetaminophen, Lipitor 40 mg a day, he is on Coreg 6.25 mg a day, he is on Britton p.r.n., he is on insulin, magnesium was given in the emergency room. He is on vancomycin IV, piperacillin/tazobactam. REVIEW OF SYSTEMS: Currently, referred no chest pain. Some shortness of breath. No chest discomfort. No fever. PHYSICAL EXAMINATION: GENERAL: Alert, fully oriented. VITAL SIGNS: His blood pressure 115/66, pulse currently 92, respiratory rate 18. LUNGS: Ventilated. CARDIOVASCULAR: S1, S2. No gallop. No murmur. ABDOMEN: Soft. No mass. No bruits. EXTREMITIES: No edema. Some affected right toes. Severe peripheral vascular disease. LABORATORY DATA: As mentioned before. troponin 7.05. Cholesterol 81, LDL 80, HDL 27, potassium 4.8, creatinine 1.38. White blood cell 11.5, hemoglobin 11.4. INR 1.4. ASSESSMENT AND RECOMMENDATIONS: Mr. Estrada is currently stable. He has no chest pain, no shortness of breath. He is on IV antibiotics. He has osteomyelitis. He referred no fever. There is no sign of the diabetic ketoacidosis. His blood pressure is adequate. His troponin is high, 7.05. Apparently, the gentleman is followed by Dr. Henao as an outpatient. The gentleman lost his insurance and was not followed anymore by Dr. Henao. I am going to discuss the case with one of the interventional cardiologists in my group and further decision about possible cardiac catheterization will be undertaken. Case extensively discussed with him. I will keep him on n.p.o. until I talk to one of my interventional in the morning. Tyesha Aguirre MD /DELF[place] , 08:27 PM , 09:01 PM
[2017-10-07] MEDS: Carvedilol 6.25 MG Tablet PO SCH ×2 (10:17→22:23)
[2017-10-07] MEDS: Senna/Docusate Sodium 8.6/50 MG Tablet PO SCH ×2 (10:17→22:23)
--- NOTE | 2017-10-07 12:03 | ECG ---
Date Performed: 10/06/2017 Time Performed: 08:28:20 PTAGE: 57 years EKG: SINUS TACHYCARDIA WITH SHORT AR INTERVAL POSSIBLE LEFT ATRIAL ENLARGEMENT ST DEVIATION AND MODERATE T-WAVE ABNORMALITY, CONSIDER LATERAL ISCHEMIA ABNORMAL ECG PREVIOUS TRACING : 08/17/2017 02.09 DOCTOR: Tyesha Aguirre Interpretating Date/Time 10/07/2017 12:01:08
--- NOTE | 2017-10-07 14:54 | P.PNWCN ---
Wound Care Nurse Consult Description: Consult for wound management of right second toe per Dr Rios Communicated with: ETHAN Dial Patient Recommendation: Cleanse right foot second digit amp site aggressively with NS and gauze every 5 days and PRN for saturation or dislodgement. Apply Puracol AG into wound bed and secure with Versatel and dry dressing. Consult podiatry for follow up of amputation progress/decline. Additional information: Patient seen in [facility] for right foot 2nd digit amp site. Wound/Pressure Injury - Patient Status Premedicated for Pain Prior to Dressing Change: No - Wound Right Foot - 2nd digit amp site Wound Assessment: Ongoing Wound Type: Traumatic Amputation Requested from Provider a Wound Care Consult: Yes Length: 3 (cm) Width: 2 (cm) Depth: 0.5 (cm) Wound Bed Appearance: [place], Red Wound Bed Appearance: non granulating Drainage Amount: None Dressing Status: Changed (Aquacel removed, dressing of Puracol AG placed and covered) Cleansing Solution: Saline Wound Packing Type: Collagen (Puracol AG) Primary Dressing: Versatel Cover Dressing: Gauze Roll/Wrap Tape Type: Silk Wound Dressing Change Date: 10/07/17
[2017-10-07] MEDS: Vancomycin Inj 1,750 MG in Sodium Chlor 0.9% Inj 500 ML IV.SIG SCH (15:00)
[2017-10-07 16:34] LABS: Hemoglobin A1c 8.2 % (4.3-6.0)
--- NOTE | 2017-10-07 17:34 | ECG ---
Date Performed: 10/06/2017 Time Performed: 14:38:01 PTAGE: 57 years EKG: SINUS TACHYCARDIA POSSIBLE LEFT ATRIAL ENLARGEMENT ST DEVIATION AND MODERATE T-WAVE ABNORMA LITY, CONSIDER INFERIOR ISCHEMIA ABNORMAL ECG Since PREVIOUS TRACING , no significant change noted PREVIOUS TRACIN10/06/2017 08.28 DOCTOR: Kaz Stevens Interpretating Date/Time 10/07/2017 17:32:56
--- NOTE | 2017-10-07 17:34 | ECG ---
Date Performed: 10/06/2017 Time Performed: 18:41:49 PTAGE: 57 years EKG: Sinus rhythm WITH SINUS ARRHYTHMIA ST DEVIATION AND MODERATE T-WAVE ABNORMALITY, CONSIDER ANTEROLATERAL ISCHEMIA ABNORMAL ECG Since PREVIOUS TRACING , no significant change noted PREVIOUS TRACIN10/06/2017 14.38 DOCTOR: Kaz Stevens Interpretating Date/Time 10/07/2017 17:33:05
[2017-10-07] MEDS: Heparin Drip 25,000 UNIT/250 ML BAG IV.CONT PRN (20:23)
--- NOTE | 2017-10-07 20:47 | P.CONID ---
History of Present Illness Service: ID Consult date: 10/07/17 Requesting Physician: Ariane Starks Reason for Consult: gram + bacteremia Primary Care Provider: Michael Jacques DO Chief Complaint: Abdominal pain/nausea and vomiting History of Present Illness: 57 yo male, diabetic, with coronary artery disease, coronary artery bypass grafting, AICD. peripheral vascular disease, toe infection, osteomyelitis. and multiple med problems sp R 2nd toe amputation about 6 weeks ago was discharged to complete his treatmet with IV asbx via PICC line Line was removed on as his treastent was completed and next day pt developped fever, chills, nightsweats, nausea,vomiting He states his amputaion site is healing His blood cultures were all positive 4/4 bottles for MSSA Pt has AICD placed in 2007 Well healed incition, no pain or redness On presentation pt had chest pain, was found to be in DKA, elevated troponine nonsustained ventricular tachycardia. 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 - Surgical History Surgical History: Surgical History (Last Reviewed 12/09/17 @ 06:35 by Natalee Henao MD) AICD (automatic cardioverter/defibrillator) present History of appendectomy History of cardiac cath Previous back surgery S/P CABG x 3 - Family History Family History: Family History (Last Reviewed 12/09/17 @ 06:36 by Natalee Henao MD) Mother Lung cancer Father CVA (cerebral vascular accident) - Social History I have reviewed the patient's Social History: Yes - Tobacco History Second Hand Smoke Exposure: Yes Tobacco Use In Past 30 Days: No Smoking Status: Former smoker Tobacco Type: Cigarettes Years Smoked: 40 - Alcohol History How Often Do You Have a Drink Containing Alcohol: 2 to 4 times a month - Substance Use History Substance History: No History of Abuse - Travel History History of Recent Travel: No Recent Travel in the [facility] [place] Within the Last 8 Weeks: No Recent Travel Out of the Country Within the Last 8 Weeks: No - Immunization History Tetanus Immunization: >5 Years Hx Influenza Vaccine This Season: No Medications and Allergies Active Medications: Active Medications Acetaminophen (Tylenol) 650 mg PO Q6H PRN PRN Reason: PAIN 1-10 AND/OR FEVER >101F Hydrocodone Bitart/Acetaminophen ([place] 5/325) 1 tab PO Q4H PRN PRN Reason: PAIN SCALE 1 TO 5 Last Admin: 10/07/17 11:28 Dose: 1 tab Al Hydroxide/Mg Hydroxide (Milk Of Unruly Mccoy) 30 ml PO Q12H PRN PRN Reason: Mild Constipation Albuterol (Albuterol Neb (Prn)) 2.5 mg NEB Q2HR NEB PRN PRN Reason: SHORTNESS OF BREATH/WHEEZING Albuterol (Duoneb Neb (Erika)) 1 ampul NEB Q4HR NEB [facility] Last Admin: 10/07/17 20:29 Dose: 1 ampul Artificial Tears (Genteal Severe Dry Eye Relief 0.3% Opth Gel) 1 drops EACH EYE HS [facility] Last Admin: 10/06/17 21:07 Dose: Not Given Atorvastatin Calcium (Lipitor) 40 mg PO DAILY [facility] Last Admin: 10/07/17 10:17 Dose: 40 mg Bisacodyl (Dulcolax Supp) 10 mg RECTAL DAILY PRN PRN Reason: SEVERE CONSITIPATION Carvedilol (Coreg) 6.25 mg PO BID [facility] Last Admin: 10/07/17 10:17 Dose: 6.25 mg Chlorhexidine Gluconate (Chlorhexidine 2% Cloth) 3 pack TOPICAL DAILY@0400 [facility] Stop: 10/12/17 03:59 Last Admin: 10/07/17 05:11 Dose: 3 pack Chlorhexidine Gluconate (Chlorhexidine 2% Cloth) 3 pack TOPICAL DAILY@0400 PRN PRN Reason: Extra cloth needed Stop: 10/12/17 03:59 Dextrose (D50w Vial) 50 ml IV.PUSH UNSCH PRN PRN Reason: PER HYPOGLYCEMIA PROTOCOL Glucagon (Glucagon Inj) 1 mg OTHER PRN PRN PRN Reason: for Hypoglycemia Protocol Sodium Chloride (Ns Inj) 1,000 mls @ 84 mls/hr IV.CONT .[id number] [facility] Last Admin: 10/07/17 14:54 Dose: 84 mls/hr Heparin Sodium/Dextrose (Heparin/D5w 25,000 U/250 Ml) 25,000 unit in 250 mls @ 0 mls/hr IV.CONT TITRATE PRN; Protocol PRN Reason: Per Protocol Last Admin: 10/07/17 20:23 Dose: 900 units/hr, 9 mls/hr Pharmacy Profile Note (Vancomycin Consult Pharmacy) 0 mls @ 0 mls/hr OTHER UNSCH [facility] Piperacillin/Tazobactam/Dextrose (Zosyn 3.375 Gm Premix) 50 mls @ 100 mls/hr IV.SIG Q6H [facility] Last Admin: 10/07/17 17:00 Dose: 100 mls/hr Vancomycin HCl 1,750 mg/ (Sodium Chloride) 517.5 mls @ 250 mls/hr IV.SIG Q24H [facility] Last Admin: 10/07/17 15:00 Dose: 250 mls/hr Magnesium Sulfate Inj 4 gm/ (Sodium Chloride) 100 mls @ 50 mls/hr IV.SIG UNSCH PRN PRN Reason: For Magnesium 0.9 - 1.1 mg/dL Magnesium Sulfate Inj 2 gm/ (Sodium Chloride) 100 mls @ 50 mls/hr IV.SIG UNSCH PRN PRN Reason: For Magnesium 1.2 - 1.6 mg/dL Sodium Phosphate 30 mmol/ (Sodium Chloride) 260 mls @ 42 mls/hr IV.SIG UNSCH PRN PRN Reason: For Phosphorus < 2.5 mg/dL Insulin Aspart (Novolog Insulin Suppl Scale Inj) 0 unit SQ Q4HR [facility]; Protocol Last Admin: 10/07/17 14:58 Dose: Not Given Lactulose (Lactulose Liq) 30 ml PO DAILY PRN PRN Reason: SEVERE CONSITIPATION Magnesium Oxide (Mag-Ox) 800 mg PO UNSCH PRN PRN Reason: For Magnesium 1.2 - 1.6 mg/dL Miscellaneous Information ([facility] [place] [facility] Ordered Lab Info) 0 each OTHER ONCE ONE Stop: 10/09/17 14:46 Morphine Sulfate (Morphine Inj) 2 mg IV.PUSH Q2H PRN PRN Reason: PAIN SCALE 6 TO 10 Ondansetron HCl (Zofran Inj) 4 mg IV.PUSH Q6H PRN PRN Reason: NAUSEA OR VOMITING Last Admin: 10/07/17 02:26 Dose: 4 mg Pantoprazole Sodium (Protonix) 40 mg PO DAILY [facility] Last Admin: 10/07/17 10:17 Dose: 40 mg Senna/Docusate Sodium (Zenaida-Colace) 1 tab PO BID [facility] Last Admin: 10/07/17 10:17 Dose: 1 tab Sennosides (Senokot) 17.2 mg PO Q12H PRN PRN Reason: Moderate Constipation Sodium Chloride (Ns Flush) 2 ml IV.FLUSH BID [facility] Last Admin: 10/07/17 10:19 Dose: 2 ml Sodium Chloride (Ns Flush) 2 ml IV.FLUSH PRN PRN PRN Reason: FLUSH AFTER USING IV ACCESS Allergies Allergy/AdvReac Type Severity Reaction Status Date / Time potassium iodide Allergy Severe Swelling Verified 10/06/17 09:36 povidone-iodine Allergy Severe Swelling Verified 10/06/17 09:36 shellfish derived Allergy Severe Swelling Verified 10/06/17 09:36 sodium iodide Allergy Severe Swelling Verified 10/06/17 09:36 sodium iodide Allergy Severe Swelling Verified 10/06/17 09:36 Home Medications Medication Instructions Recorded Confirmed Type atorvastatin 40 mg PO DAILY 10/06/17 10/06/17 History carvedilol 6.25 mg PO BID 10/06/17 10/06/17 History pravastatin 40 mg PO DAILY 10/06/17 10/06/17 History Exam Vital signs: Vital Signs 10/06/17 21:00 10/06/17 22:00 10/06/17 22:30 Temperature Pulse Rate 87 83 84 Respiratory Rate 22 22 15 Blood Pressure 106/56 L 97/53 L 109/62 Pulse Oximetry 100 99 100 10/06/17 23:00 10/07/17 00:00 10/07/17 00:46 Temperature 98.2 F Pulse Rate 108 H 91 H 86 Respiratory Rate 25 H 23 16 Blood Pressure 147/65 H 88/54 L Pulse Oximetry 98 99 10/07/17 01:00 10/07/17 02:00 10/07/17 02:01 Temperature Pulse Rate 86 98 H 102 H Respiratory Rate 7 L 18 30 H Blood Pressure 101/57 L 111/66 111/66 Pulse Oximetry 98 100 94 L 10/07/17 03:00 10/07/17 03:12 10/07/17 04:00 Temperature 98.3 F Pulse Rate 105 H 103 H 102 H Respiratory Rate 19 24 7 L Blood Pressure 105/62 97/63 L Pulse Oximetry 94 L 98 10/07/17 05:00 10/07/17 06:00 10/07/17 07:00 Temperature Pulse Rate 92 H 86 91 H Respiratory Rate 19 24 23 Blood Pressure 113/59 L 107/57 L 109/69 Pulse Oximetry 99 100 100 10/07/17 07:30 10/07/17 07:32 10/07/17 08:00 Temperature 97.7 F Pulse Rate 81 82 Respiratory Rate 12 12 Blood Pressure 106/62 Pulse Oximetry 100 100 10/07/17 08:53 10/07/17 09:00 10/07/17 10:00 Temperature Pulse Rate 85 82 80 Respiratory Rate 21 12 18 Blood Pressure 124/69 110/67 100/53 L Pulse Oximetry 100 100 100 10/07/17 11:00 10/07/17 11:47 10/07/17 12:00 Temperature 97.9 F Pulse Rate 81 82 77 Respiratory Rate 17 14 23 Blood Pressure 115/67 106/59 L Pulse Oximetry 100 100 10/07/17 13:00 10/07/17 14:00 10/07/17 15:00 Temperature 98.6 F Pulse Rate 80 79 69 Respiratory Rate 18 27 H 16 Blood Pressure 110/67 104/71 89/53 L Pulse Oximetry 100 100 10/07/17 16:00 10/07/17 16:28 10/07/17 17:00 Temperature Pulse Rate 78 80 80 Respiratory Rate 17 Blood Pressure Pulse Oximetry Intake & Output 10/07/17 10/07/17 10/08/17 06:59 18:59 06:59 Intake Total 1787.5 / 1787.5 1050 / 1050 250 / 250 Output Total 600 / 600 Balance 1187.5 / 1187.5 1050 / 1050 250 / 250 Weight 85.5 kg Intake: IV 1787.5 / 1787.5 1050 / 1050 250 / 250 Heparin/D5W 25,000 U/250 mL 25, 250 / 250 000 unit In 250 ml @ Per Protocol IV.CONT TITRATE PRN Rx #:[id number] NovoLIN R (IV Infusion) 100 20 / 20 UNIT In NS Inj 99 ML @ 9 UNITS/ HR 9 mls/hr IV.CONT TITRATE PRN Rx#:[id number] NS Inj 1,000 ML @ 84 mls/hr IV. 1000 / 1000 1000 / 1000 CONT .[id number] [facility] Rx#:[id number] Magnesium Sulfate Inj 2 GM In 100 / 100 NS Inj 96 ML @ 50 mls/hr IV.SIG ONCE ONE Rx#:[id number] Zosyn 3.375 GM Premix 50 ML @ 150 / 150 50 / 50 100 mls/hr IV.SIG Q6H [facility] Rx#: [id number] Vancomycin Inj 1,750 MG In NS 517.5 / 517.5 Inj 500 ML @ 250 mls/hr IV.SIG Q24H [facility] Rx#:[id number] Output: Urine 600 / 600 Other: Date of Last Bowel Movement 10/04/17 10/04/17 # Bowel Movements 0 - Constitutional no acute distress, average body habitus, cooperative - Routine HEENT Exam Head: Present: normocephalic, atraumatic Eye: Present: EOMI, PERRL ENT: Present: mucous membranes moist, oropharynx clear Comments: poor dentiion - Routine Neck Exam Present: supple, full ROM - Routine Chest/Breast/Axilla Exam Chest wall: Present: pacemaker (AICD in place, incision well healed, no erythema , no edema, no tenderness) - Routine Respiratory Exam Present: decreased breath sounds, CTA bilaterally - Routine Cardiovascular Exam Present: RRR, S1, S2 Comments: no murmurs well healed median sternotomy scar - Routine Abdominal Exam Present: soft, normoactive bowel sounds Comments: not tender, not distended - Detailed Extremities Exam: Vascular Peripheral pulses: 0 dorsalis pedis (L), 0 dorsalis pedis (R), 1+ posterior tibialis (L), 1+ posterior tibialis (R) - Detailed Lower Extremity Exam Foot/Toes: Left normal inspection, Right amputation (2nd toe s/p amputation, healing ) - Routine Skin Exam Present: intact, warm, normal turgor - Routine Neurological Exam Present: alert, oriented X3, CN II-XII intact, moving all extremities, hearing grossly intact - Routine Psychiatric Exam Present: normal affect, normal thought process, cooperative Results - Labs CBC & Chem 7: 10/29/17 06:26 11/01/17 11:57 Labs: Laboratory Results - last 24 hr 10/06/17 10/06/17 10/06/17 08:30 11:55 21:02 WBC RBC Hgb Hct MCV MCH MCHC RDW Plt Count MPV Neut % (Auto) Lymph % (Auto) [place] % (Auto) Eos % (Auto) Baso % (Auto) Neut # (Auto) Lymph # (Auto) [place] # (Auto) Eos # (Auto) Baso # (Auto) WBC Differential Differential Comment PT INR APTT Puncture Site Rn Patient Temperature 98.6 VBG pH 7.44 H VBG pCO2 23 L VBG pO2 34 L VBG HCO3 15 L* VBG O2 Saturation 58 L VBG O2 Content 9.4 VBG Base Excess -8.0 L VBG Carboxyhemoglobin 1.4 VBG Methemoglobin 0.8 Hemoglobin 11.6 L O2 Delivery Device Nasal cannula Liter Flow 1.00 Inspired O2 0 Critical Value Yes Sodium Potassium Chloride Carbon Dioxide Anion Gap BUN Creatinine Estimated GFR POC Glucose 192 H Random Glucose Hemoglobin A1c 8.2 H Lactic Acid Calcium Phosphorus Magnesium Ammonia Total Creatine Kinase Troponin I 10/07/17 10/07/17 10/07/17 00:34 02:00 04:28 WBC 9.6 RBC 3.84 L Hgb 11.0 L Hct 32.2 L MCV 83.9 MCH 28.7 MCHC 34.2 RDW 14.8 Plt Count 111 L MPV 8.3 Neut % (Auto) 86.6 H Lymph % (Auto) 3.5 L [place] % (Auto) 8.0 Eos % (Auto) 0.1 Baso % (Auto) 1.8 Neut # (Auto) 8.3 H Lymph # (Auto) 0.3 L [place] # (Auto) 0.8 Eos # (Auto) 0.0 Baso # (Auto) 0.2 WBC Differential . Differential Comment Auto diff final PT 11.4 INR 1.1 APTT 32.2 H Puncture Site Patient Temperature VBG pH VBG pCO2 VBG pO2 VBG HCO3 VBG O2 Saturation VBG O2 Content VBG Base Excess VBG Carboxyhemoglobin VBG Methemoglobin Hemoglobin O2 Delivery Device Liter Flow Inspired O2 Critical Value Sodium Potassium Chloride Carbon Dioxide Anion Gap BUN Creatinine Estimated GFR POC Glucose 166 H Random Glucose Hemoglobin A1c Lactic Acid Calcium Phosphorus Magnesium Ammonia Total Creatine Kinase Troponin I 10/07/17 10/07/17 10/07/17 04:28 04:28 04:28 WBC RBC Hgb Hct MCV MCH MCHC RDW Plt Count MPV Neut % (Auto) Lymph % (Auto) [place] % (Auto) Eos % (Auto) Baso % (Auto) Neut # (Auto) Lymph # (Auto) [place] # (Auto) Eos # (Auto) Baso # (Auto) WBC Differential Differential Comment PT INR APTT Puncture Site Patient Temperature VBG pH VBG pCO2 VBG pO2 VBG HCO3 VBG O2 Saturation VBG O2 Content VBG Base Excess VBG Carboxyhemoglobin VBG Methemoglobin Hemoglobin O2 Delivery Device Liter Flow Inspired O2 Critical Value Sodium 141 Potassium 3.8 D Chloride 111 H D Carbon Dioxide 21.0 Anion Gap 9 BUN 41 H Creatinine 1.17 Estimated GFR 64 L POC Glucose Random Glucose 150 H D Hemoglobin A1c Lactic Acid 1.5 Calcium 8.3 L D Phosphorus 2.1 L Magnesium 2.2 Ammonia 13 Total Creatine Kinase 121 Troponin I 6.70 H* 10/07/17 10/07/17 10/07/17 05:13 08:49 12:31 WBC RBC Hgb Hct MCV MCH MCHC RDW Plt Count MPV Neut % (Auto) Lymph % (Auto) [place] % (Auto) Eos % (Auto) Baso % (Auto) Neut # (Auto) Lymph # (Auto) [place] # (Auto) Eos # (Auto) Baso # (Auto) WBC Differential Differential Comment PT INR APTT Puncture Site Patient Temperature VBG pH VBG pCO2 VBG pO2 VBG HCO3 VBG O2 Saturation VBG O2 Content VBG Base Excess VBG Carboxyhemoglobin VBG Methemoglobin Hemoglobin O2 Delivery Device Liter Flow Inspired O2 Critical Value Sodium Potassium Chloride Carbon Dioxide Anion Gap BUN Creatinine Estimated GFR POC Glucose 146 H 158 H 168 H Random Glucose Hemoglobin A1c Lactic Acid Calcium Phosphorus Magnesium Ammonia Total Creatine Kinase Troponin I 10/07/17 10/07/17 12:32 12:32 WBC RBC Hgb Hct MCV MCH MCHC RDW Plt Count MPV Neut % (Auto) Lymph % (Auto) [place] % (Auto) Eos % (Auto) Baso % (Auto) Neut # (Auto) Lymph # (Auto) [place] # (Auto) Eos # (Auto) Baso # (Auto) WBC Differential Differential Comment PT INR APTT 27.3 Puncture Site Patient Temperature VBG pH VBG pCO2 VBG pO2 VBG HCO3 VBG O2 Saturation VBG O2 Content VBG Base Excess VBG Carboxyhemoglobin VBG Methemoglobin Hemoglobin O2 Delivery Device Liter Flow Inspired O2 Critical Value Sodium Potassium Chloride Carbon Dioxide Anion Gap BUN Creatinine Estimated GFR POC Glucose Random Glucose Hemoglobin A1c Lactic Acid Calcium Phosphorus Magnesium Ammonia Total Creatine Kinase Troponin I 4.96 H* - Imaging Impressions Abdomen/Pelvis CT 10/06/17 00:00 CONCLUSION: 1. No acute abnormality seen. 2. Increased density at the posterior lower lobes likely related to mild atelectasis. 3. Scattered atherosclerotic calcifications throughout the arterial system. 4. Degenerative and postsurgical change in the lumbar spine. Assessment and Plan (1) Staphylococcal sepsis Status: Acute Code(s): A41.2 - Sepsis due to unspecified staphylococcus (2) Staphylococcus aureus bacteremia with sepsis Status: Acute Code(s): A41.01 - Sepsis due to Methicillin susceptible Staphylococcus aureus - Plan MSSAhigh grade bactermia 2/2 PICC line Recent osteo 2 nd toe sp amputaiton AICD change abx to oxacillin 2 D echo CARA repeat blood clx untill sterility is documented dw pt [place] RN
[2017-10-08 02:16] LABS: Baso % (Auto) 0.3 % (0.0-2.0); Eos # (Auto) 0.1 th/mm3 (0.0-0.4); Eos % (Auto) 1.1 % (0.0-4.0); Hematocrit 30.4 % (39.0-51.0); Hemoglobin 10.3 gm/dL (13.0-17.0); Lymph # (Auto) 0.7 th/mm3 (1.0-4.8); Lymph % (Auto) 8.2 % (9.0-44.0); Mean Corpuscular HGB Conc 33.9 % (32.0-36.0); Mean Corpuscular Hemoglobin 28.8 pg (27.0-34.0); Mean Corpuscular Volume 84.8 fL (80.0-100.0); Mean Platelet Volume 8.6 fL (7.0-11.0); Mono # (Auto) 1.1 th/mm3 (0.0-0.9); Mono % (Auto) 12.7 % (0.0-8.0); Neut # (Auto) 6.8 th/mm3 (1.8-7.7); Neut % (Auto) 77.7 % (16.0-70.0); Platelet Count 90 th/mm3 (150-450); Red Blood Count 3.58 mil/mm3 (4.50-5.90); Red Cell Distribution Width 14.6 % (11.6-17.2); White Blood Count 8.8 th/mm3 (4.0-11.0)
[2017-10-08 02:52] LABS: Platelet Morphology Normal (Normal)
[2017-10-08 02:54] LABS: Alanine Aminotransferase 15 U/L (12-78); Albumin 2.2 g/dL (3.4-5.0); Alkaline Phosphatase 60 U/L (45-117); Anion Gap 10 meq/L (5-15); Aspartate Aminotransferase 21 U/L (15-37); Blood Urea Nitrogen 33 mg/dL (7-18); Calcium 7.6 mg/dL (8.5-10.1); Carbon Dioxide 18.3 meq/L (21.0-32.0); Chloride 114 meq/L (98-107); Glomerular Filtration Rate 80 mL/min (>89); Glucose,Random 155 mg/dL (74-106); Sodium 142 meq/L (136-145); Total Protein 5.8 g/dL (6.4-8.2)
[2017-10-08 03:02] LABS: Troponin I 2.63 ng/mL (0.02-0.05)
[2017-10-08] MEDS: Hypromellose 0.3% Opth Gel 10 GM Bottle EACH EYE SCH ×2 (03:19→21:44)
[2017-10-08] MEDS: Insulin NovoLOG Aspart Correctional Sugar Inj SQ SCH ×6 (05:06→21:11)
[2017-10-08] MEDS: Chlorhexidine Gluconate 2% 1 Pack (2 Cloths) TOPICAL SCH (05:52)
[2017-10-08] MEDS: Senna/Docusate Sodium 8.6/50 MG Tablet PO SCH ×2 (08:44→21:03)
[2017-10-08] MEDS: Sod Chloride 0.9% Inj 1,000 ML IV.CONT SCH ×2 (08:45→10:38)
[2017-10-08] MEDS: Carvedilol 6.25 MG Tablet PO SCH ×2 (08:45→21:04)
--- NOTE | 2017-10-08 12:25 | P.PN ---
Subjective Interval history: This is a 57-year-old male who originally presented to the hospital on 10/06/17 because of history of right foot osteomyelitis who is undergoing IV antibiotics at home via PICC line. Week prior to presentation the patient has noticed generalized weakness, fatigue, chest pain, fever, chills. He called the ambulance and brought to the hospital because of acute onset of substernal chest pressure. Patient was evaluated emergency department. The patient was found to have elevated troponin, diabetic ketoacidosis, lactic acidosis. Patient was admitted to the ICU for continued care. Patient was started on IV hydration, insulin drip. His cardiac enzymes were trended which did peak at 7.05 and now is trending downward at 2.63. Patient was found to have bacteremia secondary to PICC line. The PICC line has been removed. Patient was started on empirical antibiotics to include vancomycin, Zosyn. Infectious disease has evaluated the patient has had added oxacillin for continued antibiotic coverage. Assistant Case Manager was consulted who recommended cardiac catheterization. Patient does have significant increased risk factors with cardiomyopathy ejection fraction 20%, age, male, coronary artery disease, diabetes, hypertension, hyper lipidemia, history of myocardial infarction. Awaiting procedure to be performed. Infectious disease also evaluated patient and recommending echocardiogram to evaluate for any bacterial endocarditis. It was recommended that if echocardiogram does not indicate any abnormality. Will likely require a CARA. Upon seeing the patient this morning he is resting, he states that he does not feel right. He does have a rag on his head indicating that he has had some chills. Patient vital signs are stable. Patient remained afebrile at this time. Physical Exam Vital signs: Vital Signs 10/07/17 12:00 10/07/17 13:00 10/07/17 14:00 Temperature 97.9 F Pulse Rate 77 80 79 Respiratory Rate 23 18 27 H Blood Pressure 106/59 L 110/67 104/71 Pulse Oximetry 100 100 100 10/07/17 15:00 10/07/17 16:00 10/07/17 16:28 Temperature 98.6 F Pulse Rate 69 78 80 Respiratory Rate 16 17 Blood Pressure 89/53 L Pulse Oximetry 10/07/17 17:00 10/07/17 19:00 10/07/17 20:00 Temperature 99.1 F Pulse Rate 80 95 H 92 H Respiratory Rate 22 Blood Pressure 117/65 Pulse Oximetry 99 10/07/17 20:32 10/07/17 21:00 10/07/17 22:00 Temperature Pulse Rate 94 H 98 H 88 Respiratory Rate 18 Blood Pressure Pulse Oximetry 100 10/07/17 23:00 10/07/17 23:35 10/08/17 00:00 Temperature 99.2 F Pulse Rate 86 90 90 Respiratory Rate 24 20 22 Blood Pressure 97/54 L Pulse Oximetry 98 10/08/17 01:00 10/08/17 02:00 10/08/17 03:00 Temperature 98.0 F Pulse Rate 81 83 84 Respiratory Rate 22 Blood Pressure 99/56 L Pulse Oximetry 99 10/08/17 04:00 10/08/17 05:00 10/08/17 06:00 Temperature Pulse Rate 79 85 88 Respiratory Rate Blood Pressure Pulse Oximetry 10/08/17 07:00 10/08/17 08:00 10/08/17 08:05 Temperature 97.9 F Pulse Rate 97 H 82 Respiratory Rate 18 Blood Pressure 121/67 Pulse Oximetry 94 L 94 L 94 L 10/08/17 09:00 10/08/17 10:00 10/08/17 11:00 Temperature 97.7 F Pulse Rate 82 82 86 Respiratory Rate 16 Blood Pressure 103/59 L Pulse Oximetry 99 Intake & Output 10/07/17 10/08/17 10/08/17 18:59 06:59 18:59 Intake Total 1050 / 1050 1690 / 1690 1767.5 / 1767.5 Output Total 700 / 700 Balance 1050 / 1050 990 / 990 1767.5 / 1767.5 Weight 88 kg Intake: IV 1050 / 1050 1450 / 1450 1767.5 / 1767.5 Heparin/D5W 25,000 U/250 mL 25, 250 / 250 000 unit In 250 ml @ Per Protocol IV.CONT TITRATE PRN Rx #:[id number] NS Inj 1,000 ML @ 84 mls/hr IV. 1000 / 1000 1000 / 1000 1000 / 1000 CONT .[id number] [facility] Rx#:[id number] Prostaphlin Inj 2 GM In NS Inj 200 / 200 200 / 200 100 ML @ 200 mls/hr IV.SIG Q4H [facility] Rx#:[id number] Zosyn 3.375 GM Premix 50 ML @ 50 / 50 100 mls/hr IV.SIG Q6H [facility] Rx#: [id number] Oral 240 / 240 Output: Urine 700 / 700 Other: Date of Last Bowel Movement 10/04/17 10/04/17 Narrative: GENERAL: Well-developed, well-nourished, in no acute distress. alert and orientated HEENT: Head is normocephalic without any lesions or masses noted. Facial features are symmetric. Eyes: Pupils equal round reactive to light. Extraocular muscles are intact. Conjunctivae were clear. Oropharyngeal: Pharynx without any erythema edema. Tongue is midline without deviation. Buccal mucosa is moist without any masses or lesions NECK: Supple without any masses. Trachea midline no deviation. No JVD, no bruits are appreciated CARDIAC: Regular rhythm, regular rate. S1/S2 are heard. No murmurs gallops or rubs. LUNGS: Clear to auscultation bilaterally. No wheeze, rhonchi or rales. No use of accessory muscles on inspiration or expiration. ABDOMEN: Soft, nontender. Nondistended. Bowel sounds heard in all 4 quadrants. No organomegaly or masses. Negative rebound, negative guarding EXTREMITIES: No edema, pulses are equal bilaterally. No cyanosis or clubbing NEUROLOGY: Mood and affect appear appropriate. Cranial nerves II through XII grossly intact. Muscle strength 5/5 in upper and lower extremities bilaterally. Deep tendon reflexes are 2+ in upper and lower extremities bilaterally. Results - Labs CBC & Chem 7: 10/08/17 01:59 10/08/17 01:59 Laboratory Results - last 24 hr 10/06/17 10/06/17 10/07/17 08:30 11:55 12:31 WBC RBC Hgb Hct MCV MCH MCHC RDW Plt Count MPV Prelim Diff (Auto) Neut % (Auto) Lymph % (Auto) [place] % (Auto) Eos % (Auto) Baso % (Auto) Neut # (Auto) Lymph # (Auto) [place] # (Auto) Eos # (Auto) Baso # (Auto) WBC Differential Diff Scan Differential Comment Platelet Estimate Platelet Morphology APTT Puncture Site Rn Patient Temperature 98.6 VBG pH 7.44 H VBG pCO2 23 L VBG pO2 34 L VBG HCO3 15 L* VBG O2 Saturation 58 L VBG O2 Content 9.4 VBG Base Excess -8.0 L VBG Carboxyhemoglobin 1.4 VBG Methemoglobin 0.8 Hemoglobin 11.6 L O2 Delivery Device Nasal cannula Liter Flow 1.00 Inspired O2 0 Critical Value Yes Sodium Potassium Chloride Carbon Dioxide Anion Gap BUN Creatinine Estimated GFR POC Glucose 168 H Random Glucose Hemoglobin A1c 8.2 H Calcium Total Bilirubin AST ALT Alkaline Phosphatase Troponin I Total Protein Albumin 10/07/17 10/07/17 10/07/17 12:32 12:32 20:07 WBC RBC Hgb Hct MCV MCH MCHC RDW Plt Count MPV Prelim Diff (Auto) Neut % (Auto) Lymph % (Auto) [place] % (Auto) Eos % (Auto) Baso % (Auto) Neut # (Auto) Lymph # (Auto) [place] # (Auto) Eos # (Auto) Baso # (Auto) WBC Differential Diff Scan Differential Comment Platelet Estimate Platelet Morphology APTT 27.3 Puncture Site Patient Temperature VBG pH VBG pCO2 VBG pO2 VBG HCO3 VBG O2 Saturation VBG O2 Content VBG Base Excess VBG Carboxyhemoglobin VBG Methemoglobin Hemoglobin O2 Delivery Device Liter Flow Inspired O2 Critical Value Sodium Potassium Chloride Carbon Dioxide Anion Gap BUN Creatinine Estimated GFR POC Glucose Random Glucose Hemoglobin A1c Calcium Total Bilirubin AST ALT Alkaline Phosphatase Troponin I 4.96 H* 3.37 H* Total Protein Albumin 10/07/17 10/07/17 10/08/17 20:07 22:29 01:59 WBC 8.8 RBC 3.58 L Hgb 10.3 L Hct 30.4 L MCV 84.8 MCH 28.8 MCHC 33.9 RDW 14.6 Plt Count 90 L MPV 8.6 Prelim Diff (Auto) Slide review pending Neut % (Auto) 77.7 H Lymph % (Auto) 8.2 L [place] % (Auto) 12.7 H Eos % (Auto) 1.1 Baso % (Auto) 0.3 Neut # (Auto) 6.8 Lymph # (Auto) 0.7 L [place] # (Auto) 1.1 H Eos # (Auto) 0.1 Baso # (Auto) 0.0 WBC Differential . Diff Scan Auto diff confirmed Differential Comment . Platelet Estimate Low L Platelet Morphology Normal APTT 27.9 Puncture Site Patient Temperature VBG pH VBG pCO2 VBG pO2 VBG HCO3 VBG O2 Saturation VBG O2 Content VBG Base Excess VBG Carboxyhemoglobin VBG Methemoglobin Hemoglobin O2 Delivery Device Liter Flow Inspired O2 Critical Value Sodium Potassium Chloride Carbon Dioxide Anion Gap BUN Creatinine Estimated GFR POC Glucose 189 H Random Glucose Hemoglobin A1c Calcium Total Bilirubin AST ALT Alkaline Phosphatase Troponin I Total Protein Albumin 10/08/17 10/08/17 10/08/17 01:59 03:31 04:51 WBC RBC Hgb Hct MCV MCH MCHC RDW Plt Count MPV Prelim Diff (Auto) Neut % (Auto) Lymph % (Auto) [place] % (Auto) Eos % (Auto) Baso % (Auto) Neut # (Auto) Lymph # (Auto) [place] # (Auto) Eos # (Auto) Baso # (Auto) WBC Differential Diff Scan Differential Comment Platelet Estimate Platelet Morphology APTT 28.0 Puncture Site Patient Temperature VBG pH VBG pCO2 VBG pO2 VBG HCO3 VBG O2 Saturation VBG O2 Content VBG Base Excess VBG Carboxyhemoglobin VBG Methemoglobin Hemoglobin O2 Delivery Device Liter Flow Inspired O2 Critical Value Sodium 142 Potassium 4.0 Chloride 114 H Carbon Dioxide 18.3 L Anion Gap 10 BUN 33 H Creatinine 0.96 Estimated GFR 80 L POC Glucose 145 H Random Glucose 155 H Hemoglobin A1c Calcium 7.6 L Total Bilirubin 0.6 AST 21 ALT 15 Alkaline Phosphatase 60 Troponin I 2.63 H* Total Protein 5.8 L D Albumin 2.2 L D 10/08/17 08:48 WBC RBC Hgb Hct MCV MCH MCHC RDW Plt Count MPV Prelim Diff (Auto) Neut % (Auto) Lymph % (Auto) [place] % (Auto) Eos % (Auto) Baso % (Auto) Neut # (Auto) Lymph # (Auto) [place] # (Auto) Eos # (Auto) Baso # (Auto) WBC Differential Diff Scan Differential Comment Platelet Estimate Platelet Morphology APTT Puncture Site Patient Temperature VBG pH VBG pCO2 VBG pO2 VBG HCO3 VBG O2 Saturation VBG O2 Content VBG Base Excess VBG Carboxyhemoglobin VBG Methemoglobin Hemoglobin O2 Delivery Device Liter Flow Inspired O2 Critical Value Sodium Potassium Chloride Carbon Dioxide Anion Gap BUN Creatinine Estimated GFR POC Glucose 149 H Random Glucose Hemoglobin A1c Calcium Total Bilirubin AST ALT Alkaline Phosphatase Troponin I Total Protein Albumin Microbiology 10/06/17 08:40 Blood - Peripheral Aerobic Blood Culture - Preliminary Staphylococcus aureus 10/06/17 08:40 Blood - Peripheral Anaerobic Blood Culture - Preliminary Staphylococcus aureus 10/06/17 08:35 Blood - Peripheral Aerobic Blood Culture - Preliminary Staphylococcus aureus 10/06/17 08:35 Blood - Peripheral Anaerobic Blood Culture - Preliminary Staphylococcus aureus 10/07/17 20:07 Blood - Peripheral Aerobic Blood Culture - Preliminary No growth in 1 day 10/07/17 20:07 Blood - Peripheral Anaerobic Blood Culture - Preliminary No growth in 1 day 10/07/17 17:53 Blood - Peripheral Aerobic Blood Culture - Preliminary No growth in 1 day 10/07/17 17:53 Blood - Peripheral Anaerobic Blood Culture - Preliminary No growth in 1 day 10/07/17 14:00 Urine - Clean Catch Urine Streptococcus pneumoniae Antigen ( M - Final Presumptive negative for streptococcus pneumoniae antigen, suggesting no current or recent infection. Infection due to Streptococcus pneumoniae cannot be ruled out since the antigen present in the sample may be below the detection limit of the test. 10/07/17 14:00 Urine - Clean Catch Urine Legionella Antigen - Final Presumptive negative for Legionella pneumophila serogroup 1 antigen in urine, suggesting no recent or recurrent infection. Infection due to Legionella cannot be ruled out since other serogroups and species may cause disease, antigen may not be present in urine in early infection, and the level of antigen present in the urine may be below the detection limit of the test. 10/07/17 14:20 Sputum - Expectorated Sputum Gram Stain - Final 10/07/17 13:45 Nasal Wash Influenza Types A,B Antigen - Final Negative for FLU A and B antigen Infection due to influenza A or B cannot be ruled out since the antigen present in the sample may be below the detection limit of the test. - Procedures Awaiting echocardiogram Assessment and Plan - Plan Non-ST elevated myocardial infarction -Patient does have increased risk factors to include age, male, hypertension, hyperlipidemia, coronary artery disease, cardiomyopathy -Patient did have serial cardiac enzymes performed which did show a significant elevation up to 7.05 now going down to 2.63 -EKG does show acute changes with inverted T waves in inferior leads -Patient is Coreg, statin, will start aspirin, nitroglycerin as needed -Cardiology has been consulted nursing, staff indicates that he is not a candidate for cardiac catheterization -Continue oxygen -Continue monitor telemetry -Morphine for pain control -Nursing staff indicated they spoke with campground manager who indicates that they will not do cardiac catheterization, recommending palliative care, continuous pillowcase cutter consult for possible heart transplant Bacteremia -High-grade MSSA infection from PICC line -PICC line has been removed -Infectious disease consulted and recommending amoxicillin -Awaiting echocardiogram, possible CARA if echo is unremarkable for any vegetation -Continue monitor blood cultures Sepsis, resolved -Patient did meet criteria on presentation with leukocytosis, lactic acidosis, source of infection -Patient was started on empiric antibiotics include vancomycin, Zosyn -Patient was pancultured and found to have bacteremia Diabetic ketoacidosis, uncontrolled diabetes, improved -Status post insulin drip -Hemoglobin A1c 8.2 -Continue sliding scale insulin Metabolic/toxic encephalopathy, likely secondary to infection, diabetic ketoacidosis, resolved -Continue monitor neuro checks Lactic acid acidosis, resolved -Multifactorial with diabetic ketoacidosis and sepsis Acute renal failure superimposed on chronic kidney disease stage II, improved -BRIANA inhibitor has been held -Continue monitor renal function -Avoid nephrotoxins Hypertension, hyperlipidemia, coronary disease -Home medications have been continued DVT prevention -Patient is on heparin IV
--- NOTE | 2017-10-08 16:00 | P.PNCA ---
Subjective Interval history: assymptomatic in nad Physical Exam Vital signs: Vital Signs 10/07/17 16:00 10/07/17 16:28 10/07/17 17:00 Temperature Pulse Rate 78 80 80 Respiratory Rate 17 Blood Pressure Pulse Oximetry 10/07/17 19:00 10/07/17 20:00 10/07/17 20:32 Temperature 99.1 F Pulse Rate 95 H 92 H 94 H Respiratory Rate 22 18 Blood Pressure 117/65 Pulse Oximetry 99 100 10/07/17 21:00 10/07/17 22:00 10/07/17 23:00 Temperature 99.2 F Pulse Rate 98 H 88 86 Respiratory Rate 24 Blood Pressure 97/54 L Pulse Oximetry 98 10/07/17 23:35 10/08/17 00:00 10/08/17 01:00 Temperature Pulse Rate 90 90 81 Respiratory Rate 20 22 Blood Pressure Pulse Oximetry 10/08/17 02:00 10/08/17 03:00 10/08/17 04:00 Temperature 98.0 F Pulse Rate 83 84 79 Respiratory Rate 22 Blood Pressure 99/56 L Pulse Oximetry 99 10/08/17 05:00 10/08/17 06:00 10/08/17 07:00 Temperature 97.9 F Pulse Rate 85 88 97 H Respiratory Rate 18 Blood Pressure 121/67 Pulse Oximetry 94 L 10/08/17 08:00 10/08/17 08:05 10/08/17 09:00 Temperature Pulse Rate 82 82 Respiratory Rate Blood Pressure Pulse Oximetry 94 L 94 L 10/08/17 10:00 10/08/17 11:00 10/08/17 12:00 Temperature 97.7 F Pulse Rate 82 86 80 Respiratory Rate 16 Blood Pressure 103/59 L Pulse Oximetry 99 10/08/17 13:00 10/08/17 14:00 Temperature Pulse Rate 82 83 Respiratory Rate Blood Pressure Pulse Oximetry Intake & Output 10/07/17 10/08/17 10/08/17 18:59 06:59 18:59 Intake Total 1050 / 1050 1690 / 1690 1867.5 / 1867.5 Output Total 700 / 700 Balance 1050 / 1050 990 / 990 1867.5 / 1867.5 Weight 88 kg Intake: IV 1050 / 1050 1450 / 1450 1867.5 / 1867.5 Heparin/D5W 25,000 U/250 mL 25, 250 / 250 000 unit In 250 ml @ Per Protocol IV.CONT TITRATE PRN Rx #:[id number] NS Inj 1,000 ML @ 84 mls/hr IV. 1000 / 1000 1000 / 1000 1000 / 1000 CONT .[id number] Rx#:[id number] Prostaphlin Inj 2 GM In NS Inj 200 / 200 300 / 300 100 ML @ 200 mls/hr IV.SIG Q4H [facility] Rx#:[id number] Zosyn 3.375 GM Premix 50 ML @ 50 / 50 100 mls/hr IV.SIG Q6H [facility] Rx#: [id number] Oral 240 / 240 Output: Urine 700 / 700 Other: Date of Last Bowel Movement 10/04/17 10/04/17 Assessment and Plan - Assessment (1) ACS (acute coronary syndrome) Code(s): I24.9 - Acute ischemic heart disease, unspecified Status: Acute (2) Acidosis, lactic Code(s): E87.2 - Acidosis Status: Acute (3) DKA (diabetic ketoacidoses) Code(s): E13.10 - Other specified diabetes mellitus with ketoacidosis without coma Status: Acute (4) Frequent unifocal PVCs Code(s): I49.3 - Ventricular premature depolarization Status: Acute - Plan consult case management for transfer for heart transplant eval and palliative care, d/w nurseKalyey and patient
--- NOTE | 2017-10-08 16:16 | ECHRPT ---
Indication: Acute and subacute endocarditis, unspecified CONCLUSIONS The left ventricular systolic function is severely reduced with an estimated ejection fraction in th e range of 25-30%. Wall thickness is measured at the upper limits of normal. Normal left ventricular size. The left atrial size is moderately dilated. Moderate mitral valve regurgitation. There is moderate to severe tricuspid valve regurgitation. The estimated pulmonary arterial pressure is 52.8 mmHg. Trivial pulmonary valve regurgitation. BP: / HR: Rhythm: Other MEASUREMENTS (Male / Female) Normal Values Technical Quality:Good 2D ECHO LV Diastolic Diameter PLAX 5.2 cm 4.2 - 5.9 / 3.9 - 5.3 cm LV Systolic Diameter PLAX 4.7 cm IVS Diastolic Thickness 1.2 cm 0.6 - 1.0 / 0.6 - 0.9 cm LVPW Diastolic Thickness 1.2 cm 0.6 - 1.0 / 0.6 - 0.9 cm LV Relative Wall Thickness 0.5 LVOT Diameter 2.0 cm M-MODE Aortic Root Diameter MM 2.8 cm LA Systolic Diameter MM 4.9 cm LA Ao Ratio MM 1.8 AV Cusp Separation MM 2.0 cm DOPPLER AV Peak Velocity 140.0 cm/s AV Peak Gradient 7.8 mmHg LVOT Peak Velocity 79.5 cm/s LVOT Peak Gradient 2.5 mmHg AV Area Cont Eq pk 1.8 cm MR Peak Velocity 496.7 cm/s MR Peak Gradient 98.7 mmHg Mitral E Point Velocity 112.0 cm/s Mitral A Point Velocity 76.0 cm/s Mitral E to A Ratio 1.5 LV E' Lateral Velocity 11.7 cm/s Mitral E to LV E' Lateral Ratio 9.6 LV E' Septal Velocity 6.2 cm/s Mitral E to LV E' Septal Ratio 17.9 TR Peak Velocity 327.0 cm/s TR Peak Gradient 42.8 mmHg Right Atrial Pressure 10.0 mmHg Pulmonary Artery Systolic Pressu 52.8 mmHg Right Ventricular Systolic Press 52.8 mmHg PV Peak Velocity 97.7 cm/s PV Peak Gradient 3.8 mmHg FINDINGS LEFT VENTRICLE The left ventricular systolic function is severely reduced with an estimated ejection fraction in th e range of 25-30%. Wall thickness is measured at the upper limits of normal. Normal left ventricular size. RIGHT VENTRICLE Normal right ventricular size and systolic function. LEFT ATRIUM The left atrial size is moderately dilated. RIGHT ATRIUM The right atrial size is normal. ATRIAL SEPTUM Normal atrial septal thickness without atrial level shunting by limited color doppler interrogation. AORTA The aortic root and proximal ascending aorta are normal in size on limited imaging. MITRAL VALVE Moderate mitral valve regurgitation. AORTIC VALVE Trileaflet aortic valve. No aortic valve stenosis or regurgitation. TRICUSPID VALVE There is moderate to severe tricuspid valve regurgitation. The estimated pulmonary arterial pressure is 52.8 mmHg. PULMONARY VALVE Trivial pulmonary valve regurgitation. VESSELS The inferior vena cava is normal in size. PERICARDIUM No pericardial effusion. Garrett Henao MD, FACC, [id number] (Electronically Signed) Final Date:08 October 2017 16:15
--- NOTE | 2017-10-08 16:48 | P.PNID ---
Subjective Remarks: fever, nausea - resolved Repeat clx positive for GPC toleratin oxacillin OK Antibiotics: oxacillin Past Medical History: R 2nd toe osteo CAD AICD Allergies/Adverse Reactions: Allergies potassium iodide Allergy (Severe, Verified 10/06/17 09:36) Swelling povidone-iodine Allergy (Severe, Verified 10/06/17 09:36) Swelling shellfish derived Allergy (Severe, Verified 10/06/17 09:36) Swelling sodium iodide Allergy (Severe, Verified 10/06/17 09:36) Swelling sodium iodide Allergy (Severe, Verified 10/06/17 09:36) Swelling Objective Vital Signs 10/07/17 17:00 10/07/17 19:00 10/07/17 20:00 Temperature 99.1 F Pulse Rate 80 95 H 92 H Respiratory Rate 22 Blood Pressure 117/65 Pulse Oximetry 99 10/07/17 20:32 10/07/17 21:00 10/07/17 22:00 Temperature Pulse Rate 94 H 98 H 88 Respiratory Rate 18 Blood Pressure Pulse Oximetry 100 10/07/17 23:00 10/07/17 23:35 10/08/17 00:00 Temperature 99.2 F Pulse Rate 86 90 90 Respiratory Rate 24 20 22 Blood Pressure 97/54 L Pulse Oximetry 98 10/08/17 01:00 10/08/17 02:00 10/08/17 03:00 Temperature 98.0 F Pulse Rate 81 83 84 Respiratory Rate 22 Blood Pressure 99/56 L Pulse Oximetry 99 10/08/17 04:00 10/08/17 05:00 10/08/17 06:00 Temperature Pulse Rate 79 85 88 Respiratory Rate Blood Pressure Pulse Oximetry 10/08/17 07:00 10/08/17 08:00 10/08/17 08:05 Temperature 97.9 F Pulse Rate 97 H 82 Respiratory Rate 18 Blood Pressure 121/67 Pulse Oximetry 94 L 94 L 94 L 10/08/17 09:00 10/08/17 10:00 10/08/17 11:00 Temperature 97.7 F Pulse Rate 82 82 86 Respiratory Rate 16 Blood Pressure 103/59 L Pulse Oximetry 99 10/08/17 12:00 10/08/17 13:00 10/08/17 14:00 Temperature Pulse Rate 80 82 83 Respiratory Rate Blood Pressure Pulse Oximetry 10/08/17 15:00 10/08/17 16:00 Temperature 98.0 F Pulse Rate 84 87 Respiratory Rate 16 Blood Pressure 98/56 L Pulse Oximetry 95 Intake & Output 10/07/17 10/08/17 10/08/17 18:59 06:59 18:59 Intake Total 1050 / 1050 1690 / 1690 1867.5 / 1867.5 Output Total 700 / 700 Balance 1050 / 1050 990 / 990 1867.5 / 1867.5 Weight 88 kg Intake: IV 1050 / 1050 1450 / 1450 1867.5 / 1867.5 Heparin/D5W 25,000 U/250 mL 25, 250 / 250 000 unit In 250 ml @ Per Protocol IV.CONT TITRATE PRN Rx #:[id number] NS Inj 1,000 ML @ 84 mls/hr IV. 1000 / 1000 1000 / 1000 1000 / 1000 CONT .[id number] JEFE Rx#:[id number] Prostaphlin Inj 2 GM In NS Inj 200 / 200 300 / 300 100 ML @ 200 mls/hr IV.SIG Q4H JEFE Rx#:[id number] Zosyn 3.375 GM Premix 50 ML @ 50 / 50 100 mls/hr IV.SIG Q6H JEFE Rx#: [id number] Oral 240 / 240 Output: Urine 700 / 700 Other: Date of Last Bowel Movement 10/04/17 10/04/17 10/07/17 20:07 Blood - Peripheral Aerobic Blood Culture - Preliminary gram positive cocci 10/07/17 20:07 Blood - Peripheral Anaerobic Blood Culture - Preliminary No growth in 1 day 10/07/17 17:53 Blood - Peripheral Aerobic Blood Culture - Preliminary gram positive cocci 10/07/17 17:53 Blood - Peripheral Anaerobic Blood Culture - Preliminary No growth in 1 day 10/07/17 14:20 Sputum - Expectorated Sputum Gram Stain - Final 10/07/17 14:20 Sputum - Expectorated Sputum Sputum Culture - Preliminary Light growth normal respiratory caterina at 24 hours 10/06/17 08:40 Blood - Peripheral Aerobic Blood Culture - Preliminary Staphylococcus aureus 10/06/17 08:40 Blood - Peripheral Anaerobic Blood Culture - Preliminary Staphylococcus aureus 10/06/17 08:35 Blood - Peripheral Aerobic Blood Culture - Preliminary Staphylococcus aureus 10/06/17 08:35 Blood - Peripheral Anaerobic Blood Culture - Preliminary Staphylococcus aureus 10/07/17 14:00 Urine - Clean Catch Urine Streptococcus pneumoniae Antigen ( M - Final Presumptive negative for streptococcus pneumoniae antigen, suggesting no current or recent infection. Infection due to Streptococcus pneumoniae cannot be ruled out since the antigen present in the sample may be below the detection limit of the test. 10/07/17 14:00 Urine - Clean Catch Urine Legionella Antigen - Final Presumptive negative for Legionella pneumophila serogroup 1 antigen in urine, suggesting no recent or recurrent infection. Infection due to Legionella cannot be ruled out since other serogroups and species may cause disease, antigen may not be present in urine in early infection, and the level of antigen present in the urine may be below the detection limit of the test. 10/07/17 13:45 Nasal Wash Influenza Types A,B Antigen - Final Negative for FLU A and B antigen Infection due to influenza A or B cannot be ruled out since the antigen present in the sample may be below the detection limit of the test. Lab - Hematology Results 10/07/17 10/08/17 04:28 01:59 WBC 9.6 8.8 RBC 3.84 L 3.58 L Hgb 11.0 L 10.3 L Hct 32.2 L 30.4 L MCV 83.9 84.8 MCH 28.7 28.8 MCHC 34.2 33.9 RDW 14.8 14.6 Plt Count 111 L 90 L MPV 8.3 8.6 Prelim Diff (Auto) Slide review pending Neut % (Auto) 86.6 H 77.7 H Lymph % (Auto) 3.5 L 8.2 L [place] % (Auto) 8.0 12.7 H Eos % (Auto) 0.1 1.1 Baso % (Auto) 1.8 0.3 Neut # (Auto) 8.3 H 6.8 Lymph # (Auto) 0.3 L 0.7 L [place] # (Auto) 0.8 1.1 H Eos # (Auto) 0.0 0.1 Baso # (Auto) 0.2 0.0 WBC Differential . . Diff Scan Auto diff confirmed Differential Comment Auto diff final . Platelet Estimate Low L Platelet Morphology Normal Lab - Chemistry Results 10/06/17 10/06/17 10/06/17 11:55 16:40 17:52 Sodium Potassium Chloride Carbon Dioxide Anion Gap BUN Creatinine Estimated GFR POC Glucose 285 H Random Glucose Hemoglobin A1c 8.2 H Lactic Acid 2.3 H Calcium Phosphorus Magnesium Total Bilirubin AST ALT Alkaline Phosphatase Ammonia Total Creatine Kinase Troponin I Total Protein Albumin 10/06/17 10/06/17 10/07/17 17:52 21:02 00:34 Sodium Potassium Chloride Carbon Dioxide Anion Gap BUN Creatinine Estimated GFR POC Glucose 192 H 166 H Random Glucose Hemoglobin A1c Lactic Acid Calcium Phosphorus Magnesium Total Bilirubin AST ALT Alkaline Phosphatase Ammonia Total Creatine Kinase Troponin I 7.05 H* Total Protein Albumin 10/07/17 10/07/17 10/07/17 04:28 04:28 04:28 Sodium 141 Potassium 3.8 D Chloride 111 H D Carbon Dioxide 21.0 Anion Gap 9 BUN 41 H Creatinine 1.17 Estimated GFR 64 L POC Glucose Random Glucose 150 H D Hemoglobin A1c Lactic Acid 1.5 Calcium 8.3 L D Phosphorus 2.1 L Magnesium 2.2 Total Bilirubin AST ALT Alkaline Phosphatase Ammonia 13 Total Creatine Kinase 121 Troponin I 6.70 H* Total Protein Albumin 10/07/17 10/07/17 10/07/17 05:13 08:49 12:31 Sodium Potassium Chloride Carbon Dioxide Anion Gap BUN Creatinine Estimated GFR POC Glucose 146 H 158 H 168 H Random Glucose Hemoglobin A1c Lactic Acid Calcium Phosphorus Magnesium Total Bilirubin AST ALT Alkaline Phosphatase Ammonia Total Creatine Kinase Troponin I Total Protein Albumin 10/07/17 10/07/17 10/07/17 12:32 20:07 22:29 Sodium Potassium Chloride Carbon Dioxide Anion Gap BUN Creatinine Estimated GFR POC Glucose 189 H Random Glucose Hemoglobin A1c Lactic Acid Calcium Phosphorus Magnesium Total Bilirubin AST ALT Alkaline Phosphatase Ammonia Total Creatine Kinase Troponin I 4.96 H* 3.37 H* Total Protein Albumin 10/08/17 10/08/17 10/08/17 01:59 03:31 08:48 Sodium 142 Potassium 4.0 Chloride 114 H Carbon Dioxide 18.3 L Anion Gap 10 BUN 33 H Creatinine 0.96 Estimated GFR 80 L POC Glucose 145 H 149 H Random Glucose 155 H Hemoglobin A1c Lactic Acid Calcium 7.6 L Phosphorus Magnesium Total Bilirubin 0.6 AST 21 ALT 15 Alkaline Phosphatase 60 Ammonia Total Creatine Kinase Troponin I 2.63 H* Total Protein 5.8 L D Albumin 2.2 L D 10/08/17 12:10 Sodium Potassium Chloride Carbon Dioxide Anion Gap BUN Creatinine Estimated GFR POC Glucose 143 H Random Glucose Hemoglobin A1c Lactic Acid Calcium Phosphorus Magnesium Total Bilirubin AST ALT Alkaline Phosphatase Ammonia Total Creatine Kinase Troponin I Total Protein Albumin Imaging: ITS Impressions Abdomen/Pelvis CT 10/06/17 00:00 CONCLUSION: 1. No acute abnormality seen. 2. Increased density at the posterior lower lobes likely related to mild atelectasis. 3. Scattered atherosclerotic calcifications throughout the arterial system. 4. Degenerative and postsurgical change in the lumbar spine. Chest X-Ray 10/06/17 08:34 CONCLUSION: No evidence of congestive heart failure. Stable mild cardiomegaly. Otherwise negative exam. Physical Exam: GENERAL: SKIN: Warm and dry. HEAD: Atraumatic. Normocephalic. EYES: Pupils equal and round. No scleral icterus. No injection or drainage. ENT: No nasal bleeding or discharge. Mucous membranes pink and moist. NECK: Trachea midline. No JVD. CARDIOVASCULAR: Regular rate and rhythm. AICD in place, no skin changes, well healed incision RESPIRATORY: No accessory muscle use. Clear to auscultation. Breath sounds equal bilaterally. GASTROINTESTINAL: Abdomen soft, non-tender, nondistended. Hepatic and splenic margins not palpable. MUSCULOSKELETAL: Extremities without clubbing, cyanosis, or edema. No obvious deformities. dressong in p;livia R foot s/p 2nd R toe amputation NEUROLOGICAL: Awake and alert. No obvious cranial nerve deficits. Motor grossly within normal limits. Five out of 5 muscle strength in the arms and legs. Normal speech. PSYCHIATRIC: Appropriate mood and affect; insight and judgment normal. Assessment and Plan (1) Staphylococcal sepsis Status: Acute Code(s): A41.2 - Sepsis due to unspecified staphylococcus (2) Staphylococcus aureus bacteremia with sepsis Status: Acute Code(s): A41.01 - Sepsis due to Methicillin susceptible Staphylococcus aureus - Plan MSSAhigh grade bactermia 2/2 PICC line Recent osteo 2 nd toe sp amputaiton AICD cont oxacillin - monitoring parameters: CBC, CMP at least weekly awaiting2 D echo will order CARA if neg 2 D echo repeat blood clx untill sterility is documented paola pt, spuose @ b/s paola RN
[2017-10-09] MEDS: Sod Chloride 0.9% Inj 1,000 ML IV.CONT SCH (02:30)
[2017-10-09 03:56] LABS: Baso % (Auto) 0.5 % (0.0-2.0); Eos # (Auto) 0.1 th/mm3 (0.0-0.4); Eos % (Auto) 1.7 % (0.0-4.0); Hematocrit 29.2 % (39.0-51.0); Hemoglobin 9.8 gm/dL (13.0-17.0); Lymph # (Auto) 1.4 th/mm3 (1.0-4.8); Lymph % (Auto) 19.5 % (9.0-44.0); Mean Corpuscular HGB Conc 33.7 % (32.0-36.0); Mean Corpuscular Hemoglobin 28.4 pg (27.0-34.0); Mean Corpuscular Volume 84.3 fL (80.0-100.0); Mean Platelet Volume 8.6 fL (7.0-11.0); Neut # (Auto) 4.7 th/mm3 (1.8-7.7); Neut % (Auto) 64.3 % (16.0-70.0); Platelet Count 107 th/mm3 (150-450); Red Blood Count 3.46 mil/mm3 (4.50-5.90); Red Cell Distribution Width 14.6 % (11.6-17.2); White Blood Count 7.3 th/mm3 (4.0-11.0)
[2017-10-09] MEDS: Chlorhexidine Gluconate 2% 1 Pack (2 Cloths) TOPICAL SCH (04:07)
[2017-10-09 04:21] LABS: Anion Gap 11 meq/L (5-15); Aspartate Aminotransferase 12 U/L (15-37); Blood Urea Nitrogen 23 mg/dL (7-18); Calcium 8.2 mg/dL (8.5-10.1); Chloride 113 meq/L (98-107); Glomerular Filtration Rate Greater Than 89 mL/min (>89); Glucose,Random 71 mg/dL (74-106); Potassium 3.6 meq/L (3.5-5.1); Sodium 144 meq/L (136-145)
[2017-10-09 04:22] LABS: Alanine Aminotransferase 11 U/L (12-78)
[2017-10-09 04:23] LABS: Alkaline Phosphatase 156 U/L (45-117); Total Protein 5.5 g/dL (6.4-8.2)
--- NOTE | 2017-10-09 08:19 | P.PNIM ---
Subjective Interval history: The patient was resting in bed comfortably. He stated that he understood that his heart was in bad shape and that he might need to consider a transplant down the line. He said that he is aware that he needs to be on IV antibiotics for the infection. Discussed with nursing. Physical Exam Vital signs: Vital Signs 10/08/17 09:00 10/08/17 10:00 10/08/17 11:00 Temperature 97.7 F Pulse Rate 82 82 86 Respiratory Rate 16 Blood Pressure 103/59 L Pulse Oximetry 99 10/08/17 12:00 10/08/17 13:00 10/08/17 14:00 Temperature Pulse Rate 80 82 83 Respiratory Rate Blood Pressure Pulse Oximetry 10/08/17 15:00 10/08/17 16:00 10/08/17 16:57 Temperature 98.0 F Pulse Rate 84 87 96 H Respiratory Rate 16 Blood Pressure 98/56 L Pulse Oximetry 95 10/08/17 17:12 10/08/17 19:00 10/08/17 20:00 Temperature 98.3 F Pulse Rate 99 H 97 H 90 Respiratory Rate 18 Blood Pressure 114/66 Pulse Oximetry 93 L 10/08/17 20:19 10/08/17 21:00 10/08/17 22:00 Temperature Pulse Rate 96 H 90 86 Respiratory Rate 22 Blood Pressure Pulse Oximetry 94 L 10/08/17 23:00 10/09/17 00:00 10/09/17 01:00 Temperature 99 F Pulse Rate 76 80 74 Respiratory Rate 18 Blood Pressure 98/60 L Pulse Oximetry 94 L 10/09/17 02:00 10/09/17 03:00 10/09/17 04:00 Temperature 98 F Pulse Rate 74 70 66 Respiratory Rate 18 Blood Pressure 98/61 L Pulse Oximetry 94 L 10/09/17 05:00 10/09/17 06:00 10/09/17 07:00 Temperature 98.2 F Pulse Rate 66 74 71 Respiratory Rate 18 Blood Pressure 102/64 Pulse Oximetry 95 Intake & Output 10/08/17 10/09/17 10/09/17 18:59 06:59 18:59 Intake Total 2447.5 / 2447.5 1920 / 1920 Output Total 650 / 650 750 / 750 Balance 1797.5 / 1797.5 1170 / 1170 Intake: IV 1967.5 / 1967.5 1200 / 1200 NS Inj 1,000 ML @ 84 mls/hr IV. 1000 / 1000 1000 / 1000 CONT .[id number] JEFE Rx#:[id number] Prostaphlin Inj 2 GM In NS Inj 400 / 400 200 / 200 100 ML @ 200 mls/hr IV.SIG Q4H JEFE Rx#:[id number] Oral 480 / 480 720 / 720 Output: Urine 650 / 650 750 / 750 Other: Date of Last Bowel Movement 10/04/17 # Bowel Movements 0 Narrative: GENERAL: Well-developed, well-nourished, in no acute distress. HEENT: Head is normocephalic without any lesions or masses noted. Facial features are symmetric. NECK: Supple without any masses. Trachea midline no deviation. No JVD, no bruits are appreciated. CARDIAC: Regular rhythm, regular rate. S1/S2 are heard. No murmurs gallops or rubs. LUNGS: Clear to auscultation bilaterally. No wheeze, rhonchi or rales. No use of accessory muscles on inspiration or expiration. ABDOMEN: Soft, nontender. Nondistended. Bowel sounds heard in all 4 quadrants. No organomegaly or masses. Negative rebound, negative guarding EXTREMITIES: No edema. Bandage on right foot. NEUROLOGY: Cranial nerves II through XII grossly intact. Muscle strength 5/5 in upper and lower extremities bilaterally. Deep tendon reflexes are 2+ in upper and lower extremities bilaterally. Results - Labs CBC & Chem 7: 10/09/17 03:30 10/09/17 03:30 Laboratory Results - last 24 hr 10/06/17 10/08/17 10/08/17 08:30 08:48 12:10 WBC RBC Hgb Hct MCV MCH MCHC RDW Plt Count MPV Neut % (Auto) Lymph % (Auto) [place] % (Auto) Eos % (Auto) Baso % (Auto) Neut # (Auto) Lymph # (Auto) [place] # (Auto) Eos # (Auto) Baso # (Auto) WBC Differential Differential Comment APTT Puncture Site Rn Patient Temperature 98.6 VBG pH 7.44 H VBG pCO2 23 L VBG pO2 34 L VBG HCO3 15 L* VBG O2 Saturation 58 L VBG O2 Content 9.4 VBG Base Excess -8.0 L VBG Carboxyhemoglobin 1.4 VBG Methemoglobin 0.8 Hemoglobin 11.6 L O2 Delivery Device Nasal cannula Liter Flow 1.00 Inspired O2 0 Critical Value Yes Sodium Potassium Chloride Carbon Dioxide Anion Gap BUN Creatinine Estimated GFR POC Glucose 149 H 143 H Random Glucose Calcium Total Bilirubin AST ALT Alkaline Phosphatase Total Protein Albumin 10/08/17 10/08/17 10/08/17 15:18 16:59 20:03 WBC RBC Hgb Hct MCV MCH MCHC RDW Plt Count MPV Neut % (Auto) Lymph % (Auto) [place] % (Auto) Eos % (Auto) Baso % (Auto) Neut # (Auto) Lymph # (Auto) [place] # (Auto) Eos # (Auto) Baso # (Auto) WBC Differential Differential Comment APTT 30.1 Puncture Site Patient Temperature VBG pH VBG pCO2 VBG pO2 VBG HCO3 VBG O2 Saturation VBG O2 Content VBG Base Excess VBG Carboxyhemoglobin VBG Methemoglobin Hemoglobin O2 Delivery Device Liter Flow Inspired O2 Critical Value Sodium Potassium Chloride Carbon Dioxide Anion Gap BUN Creatinine Estimated GFR POC Glucose 195 H 246 H Random Glucose Calcium Total Bilirubin AST ALT Alkaline Phosphatase Total Protein Albumin 10/08/17 10/09/17 10/09/17 23:30 03:30 03:30 WBC 7.3 RBC 3.46 L Hgb 9.8 L Hct 29.2 L MCV 84.3 MCH 28.4 MCHC 33.7 RDW 14.6 Plt Count 107 L MPV 8.6 Neut % (Auto) 64.3 Lymph % (Auto) 19.5 [place] % (Auto) 14.0 H Eos % (Auto) 1.7 Baso % (Auto) 0.5 Neut # (Auto) 4.7 Lymph # (Auto) 1.4 [place] # (Auto) 1.0 H Eos # (Auto) 0.1 Baso # (Auto) 0.0 WBC Differential . Differential Comment Auto diff final APTT 29.9 Puncture Site Patient Temperature VBG pH VBG pCO2 VBG pO2 VBG HCO3 VBG O2 Saturation VBG O2 Content VBG Base Excess VBG Carboxyhemoglobin VBG Methemoglobin Hemoglobin O2 Delivery Device Liter Flow Inspired O2 Critical Value Sodium 144 Potassium 3.6 Chloride 113 H Carbon Dioxide 20.0 L Anion Gap 11 BUN 23 H Creatinine 0.72 Estimated GFR Greater than 89 POC Glucose Random Glucose 71 L Calcium 8.2 L Total Bilirubin 0.5 AST 12 L ALT 11 L Alkaline Phosphatase 156 H Total Protein 5.5 L Albumin 2.0 L 10/09/17 03:30 WBC RBC Hgb Hct MCV MCH MCHC RDW Plt Count MPV Neut % (Auto) Lymph % (Auto) [place] % (Auto) Eos % (Auto) Baso % (Auto) Neut # (Auto) Lymph # (Auto) [place] # (Auto) Eos # (Auto) Baso # (Auto) WBC Differential Differential Comment APTT 32.7 H Puncture Site Patient Temperature VBG pH VBG pCO2 VBG pO2 VBG HCO3 VBG O2 Saturation VBG O2 Content VBG Base Excess VBG Carboxyhemoglobin VBG Methemoglobin Hemoglobin O2 Delivery Device Liter Flow Inspired O2 Critical Value Sodium Potassium Chloride Carbon Dioxide Anion Gap BUN Creatinine Estimated GFR POC Glucose Random Glucose Calcium Total Bilirubin AST ALT Alkaline Phosphatase Total Protein Albumin Microbiology 10/07/17 20:07 Blood - Peripheral Aerobic Blood Culture - Preliminary gram positive cocci 10/07/17 20:07 Blood - Peripheral Anaerobic Blood Culture - Preliminary No growth in 1 day 10/07/17 17:53 Blood - Peripheral Aerobic Blood Culture - Preliminary gram positive cocci 10/07/17 17:53 Blood - Peripheral Anaerobic Blood Culture - Preliminary No growth in 1 day 10/07/17 14:20 Sputum - Expectorated Sputum Gram Stain - Final 10/07/17 14:20 Sputum - Expectorated Sputum Sputum Culture - Preliminary Light growth normal respiratory caterina at 24 hours 10/06/17 08:40 Blood - Peripheral Aerobic Blood Culture - Preliminary Staphylococcus aureus 10/06/17 08:40 Blood - Peripheral Anaerobic Blood Culture - Preliminary Staphylococcus aureus 10/06/17 08:35 Blood - Peripheral Aerobic Blood Culture - Preliminary Staphylococcus aureus 10/06/17 08:35 Blood - Peripheral Anaerobic Blood Culture - Preliminary Staphylococcus aureus 10/07/17 14:00 Urine - Clean Catch Urine Streptococcus pneumoniae Antigen ( M - Final Presumptive negative for streptococcus pneumoniae antigen, suggesting no current or recent infection. Infection due to Streptococcus pneumoniae cannot be ruled out since the antigen present in the sample may be below the detection limit of the test. 10/07/17 14:00 Urine - Clean Catch Urine Legionella Antigen - Final Presumptive negative for Legionella pneumophila serogroup 1 antigen in urine, suggesting no recent or recurrent infection. Infection due to Legionella cannot be ruled out since other serogroups and species may cause disease, antigen may not be present in urine in early infection, and the level of antigen present in the urine may be below the detection limit of the test. - Procedures Awaiting echocardiogram Assessment and Plan - Plan Non-ST elevated myocardial infarction -Patient does have increased risk factors to include age, male, hypertension, hyperlipidemia, coronary artery disease, cardiomyopathy -Patient did have serial cardiac enzymes performed which did show a significant elevation up to 7.05 now going down to 2.63 -EKG does show acute changes with inverted T waves in inferior leads and ST depressions in the lateral leads -Patient is Coreg, statin, will start aspirin, nitroglycerin as needed -Cardiology has been consulted and says he is not a candidate for cardiac catheterization. They recommend palliative care or referral for heart transplant work-up. -Continue oxygen -Continue monitor telemetry -Morphine for pain control -episode of shortness of breath and tachycardia 10/09. EKG with new ST depressions. CXR with mild positive fluid balance. Episode resolved. Discussed with cardiology. Continue cardiac regimen and follow up with cardiology. Bacteremia -High-grade MSSA infection from PICC line -PICC line has been removed -Infectious disease consulted. Continue antibiotics. -Continue monitor blood cultures Sepsis, resolved -Patient did meet criteria on presentation with leukocytosis, lactic acidosis, source of infection -Patient was started on empiric antibiotics include vancomycin, Zosyn -Patient was pancultured and found to have bacteremia Diabetic ketoacidosis, uncontrolled diabetes, improved -Status post insulin drip -Hemoglobin A1c 8.2 -Continue sliding scale insulin Metabolic/toxic encephalopathy, likely secondary to infection, diabetic ketoacidosis, resolved -Continue monitor neuro checks Lactic acid acidosis, resolved -Multifactorial with diabetic ketoacidosis and sepsis Acute renal failure superimposed on chronic kidney disease stage II, improved -BRIANA inhibitor has been held -Avoid nephrotoxins DVT prevention -Patient is on heparin IV
[2017-10-09] MEDS: Carvedilol 6.25 MG Tablet PO SCH ×2 (09:11→21:25)
[2017-10-09] MEDS: Senna/Docusate Sodium 8.6/50 MG Tablet PO SCH ×2 (09:13→21:24)
[2017-10-09] MEDS: Insulin NovoLOG Aspart Correctional Sugar Inj SQ SCH ×4 (09:14→21:24)
--- NOTE | 2017-10-09 10:00 | XR ---
EXAM DATE: 10/09/2017 9:56 AM EDT AGE/SEX: 57 years / Male INDICATIONS: . Short of breath since this morning. CLINICAL DATA: This is the patient's subsequent encounter. Patient reports that signs and symptoms h ave been present for 3 days and indicates a pain score of 0/10. MEDICAL/SURGICAL HISTORY: . Diabetes. Congestive heart failure. Hepatitis C. Myocardial infarct ion . Pacemaker. Appendectomy. CABG. COMPARISON: C, CHEST 1V SINGLE AP, 10/06/2017. . FINDINGS: Postsurgical features of median sternotomy with stable single lead AICD device in place. Mild interst itial prominence without new focal pleural or parenchymal opacities. Cardiac silhouette remains enlar ged. Central pulmonary vascularity is slightly indistinct. Remainder of the exam is unchanged. CONCLUSION: 1. Cardiomegaly with new mild positive fluid balance. Electronically signed by: Norman Barba MD 10/09/2017 9:59 AM EDT
--- NOTE | 2017-10-09 12:08 | ECG ---
Date Performed: 10/09/2017 Time Performed: 09:27:44 PTAGE: 57 years EKG: Sinus tachycardia with PVC(s). Extensive ST-T changes suggest myocardial injury/ischemia Lo w QRS voltages in limb leads Abnormal ECG NO PREVIOUS TRACING DOCTOR: Adair Castillo Interpretating Date/Time 10/09/2017 12:06:50
[2017-10-09] MEDS: Insulin Detemir Inj 1,000 UNIT/10 ML Vial SQ SCH (12:15)
[2017-10-09] MEDS ORDERED: Pharmacy Ordered Lab Info OTHER ONE (14:45)
--- NOTE | 2017-10-09 15:49 | P.PNCA ---
Subjective Interval history: dyspnea when HR 130 ow assymptomatic Physical Exam Vital signs: Vital Signs 10/08/17 16:00 10/08/17 16:57 10/08/17 17:12 Temperature Pulse Rate 87 96 H 99 H Respiratory Rate Blood Pressure Pulse Oximetry 10/08/17 19:00 10/08/17 20:00 10/08/17 20:19 Temperature 98.3 F Pulse Rate 97 H 90 96 H Respiratory Rate 18 22 Blood Pressure 114/66 Pulse Oximetry 93 L 94 L 10/08/17 21:00 10/08/17 22:00 10/08/17 23:00 Temperature 99 F Pulse Rate 90 86 76 Respiratory Rate 18 Blood Pressure 98/60 L Pulse Oximetry 94 L 10/09/17 00:00 10/09/17 01:00 10/09/17 02:00 Temperature Pulse Rate 80 74 74 Respiratory Rate Blood Pressure Pulse Oximetry 10/09/17 03:00 10/09/17 04:00 10/09/17 05:00 Temperature 98 F Pulse Rate 70 66 66 Respiratory Rate 18 Blood Pressure 98/61 L Pulse Oximetry 94 L 10/09/17 06:00 10/09/17 07:00 10/09/17 08:00 Temperature 98.2 F Pulse Rate 74 71 74 Respiratory Rate 18 Blood Pressure 102/64 Pulse Oximetry 95 10/09/17 09:00 10/09/17 09:20 10/09/17 10:00 Temperature Pulse Rate 88 140 H 86 Respiratory Rate 40 H Blood Pressure Pulse Oximetry 98 10/09/17 11:00 10/09/17 12:00 10/09/17 13:00 Temperature 98.5 F Pulse Rate 85 92 H 90 Respiratory Rate 18 Blood Pressure 111/68 Pulse Oximetry 99 10/09/17 14:00 Temperature Pulse Rate 88 Respiratory Rate Blood Pressure Pulse Oximetry Intake & Output 10/08/17 10/09/17 10/09/17 18:59 06:59 18:59 Intake Total 2447.5 / 2447.5 2019 100 / 100 Output Total 650 / 650 750 / 750 Balance 1797.5 / 1797.5 1270 / 1270 100 / 100 Intake: IV 1967.5 / 1967.5 1300 / 1300 100 / 100 NS Inj 1,000 ML @ 84 mls/hr IV. 1000 / 1000 1000 / 1000 CONT .[id number] [facility] Rx#:[id number] Prostaphlin Inj 2 GM In NS Inj 400 / 400 300 / 300 100 / 100 100 ML @ 200 mls/hr IV.SIG Q4H JEFE Rx#:[id number] Oral 480 / 480 720 / 720 Output: Urine 650 / 650 750 / 750 Other: Date of Last Bowel Movement 10/04/17 # Bowel Movements 0 Assessment and Plan - Assessment (1) ACS (acute coronary syndrome) Code(s): I24.9 - Acute ischemic heart disease, unspecified Status: Acute (2) Acidosis, lactic Code(s): E87.2 - Acidosis Status: Acute (3) DKA (diabetic ketoacidoses) Code(s): E13.10 - Other specified diabetes mellitus with ketoacidosis without coma Status: Acute (4) Frequent unifocal PVCs Code(s): I49.3 - Ventricular premature depolarization Status: Acute - Plan consult case management for transfer for heart transplant eval and palliative care, d/w Dr Fernando and nurse; he appears to assymptomatic when not tachycardic , prognosis is poor
[2017-10-09] MEDS: Heparin Drip 25,000 UNIT/250 ML BAG IV.CONT PRN (18:10)
[2017-10-10] MEDS: Hypromellose 0.3% Opth Gel 10 GM Bottle EACH EYE SCH ×2 (03:08→20:45)
[2017-10-10] MEDS: Chlorhexidine Gluconate 2% 1 Pack (2 Cloths) TOPICAL SCH (03:09)
[2017-10-10 07:53] LABS: Baso % (Auto) 0.6 % (0.0-2.0); Eos # (Auto) 0.2 th/mm3 (0.0-0.4); Eos % (Auto) 2.1 % (0.0-4.0); Hematocrit 29.3 % (39.0-51.0); Hemoglobin 10.1 gm/dL (13.0-17.0); Lymph # (Auto) 1.4 th/mm3 (1.0-4.8); Lymph % (Auto) 17.7 % (9.0-44.0); Mean Corpuscular HGB Conc 34.4 % (32.0-36.0); Mean Corpuscular Volume 84.5 fL (80.0-100.0); Mean Platelet Volume 8.9 fL (7.0-11.0); Mono # (Auto) 1.1 th/mm3 (0.0-0.9); Mono % (Auto) 13.7 % (0.0-8.0); Neut # (Auto) 5.1 th/mm3 (1.8-7.7); Neut % (Auto) 65.9 % (16.0-70.0); Platelet Count 115 th/mm3 (150-450); Red Blood Count 3.46 mil/mm3 (4.50-5.90); Red Cell Distribution Width 14.3 % (11.6-17.2); White Blood Count 7.8 th/mm3 (4.0-11.0)
[2017-10-10 08:02] LABS: Alanine Aminotransferase 11 U/L (12-78); Albumin 2.1 g/dL (3.4-5.0); Anion Gap 12 meq/L (5-15); Aspartate Aminotransferase 11 U/L (15-37); Blood Urea Nitrogen 20 mg/dL (7-18); Calcium 8.2 mg/dL (8.5-10.1); Carbon Dioxide 18.9 meq/L (21.0-32.0); Chloride 111 meq/L (98-107); Glomerular Filtration Rate Greater Than 89 mL/min (>89); Glucose,Random 132 mg/dL (74-106); Potassium 3.8 meq/L (3.5-5.1); Sodium 142 meq/L (136-145)
[2017-10-10 08:03] LABS: Alkaline Phosphatase 63 U/L (45-117); Total Protein 5.7 g/dL (6.4-8.2)
--- NOTE | 2017-10-10 08:54 | P.PNIM ---
Subjective Interval history: The patient was resting in bed. He was about to have some blood drawn. He said he had an episode around 3 AM where he was feeling cold, shaky and then developed shortness of breath. He thinks anxiety might have something to do with it. He thinks his infection might also have something to do with it. Discussed with nursing. Physical Exam Vital signs: Vital Signs 10/09/17 09:00 10/09/17 09:20 10/09/17 10:00 Temperature Pulse Rate 88 140 H 86 Respiratory Rate 40 H Blood Pressure Pulse Oximetry 98 10/09/17 11:00 10/09/17 12:00 10/09/17 13:00 Temperature 98.5 F Pulse Rate 85 92 H 90 Respiratory Rate 18 Blood Pressure 111/68 Pulse Oximetry 99 10/09/17 14:00 10/09/17 15:00 10/09/17 16:00 Temperature 98.6 F Pulse Rate 88 76 82 Respiratory Rate 18 Blood Pressure 114/72 Pulse Oximetry 98 10/09/17 17:00 10/09/17 18:00 10/09/17 19:00 Temperature 97.6 F Pulse Rate 84 82 76 Respiratory Rate 18 Blood Pressure 122/67 Pulse Oximetry 98 10/09/17 19:53 10/09/17 20:00 10/09/17 21:00 Temperature Pulse Rate 78 76 80 Respiratory Rate 16 Blood Pressure Pulse Oximetry 98 10/09/17 21:21 10/09/17 22:00 10/09/17 23:00 Temperature 98.4 F Pulse Rate 155 H 74 80 Respiratory Rate 18 Blood Pressure 122/72 Pulse Oximetry 99 10/10/17 00:00 10/10/17 00:58 10/10/17 02:00 Temperature Pulse Rate 78 77 106 H Respiratory Rate Blood Pressure Pulse Oximetry 10/10/17 03:00 10/10/17 04:00 10/10/17 05:00 Temperature 98.4 F Pulse Rate 90 83 83 Respiratory Rate Blood Pressure 125/74 Pulse Oximetry 98 10/10/17 05:57 10/10/17 07:00 10/10/17 08:00 Temperature 98.3 F Pulse Rate 78 82 78 Respiratory Rate Blood Pressure 119/68 Pulse Oximetry 99 Intake & Output 10/09/17 10/10/17 10/10/17 18:59 06:59 18:59 Intake Total 1350 / 1350 1140 / 1140 Output Total 710 / 710 950 / 950 Balance 640 / 640 190 / 190 Weight 96 kg Intake: IV 300 / 300 200 / 200 Prostaphlin Inj 2 GM In NS Inj 300 / 300 200 / 200 100 ML @ 200 mls/hr IV.SIG Q4H JEFE Rx#:[id number] Oral 1050 / 1050 940 / 940 Output: Urine 710 / 710 950 / 950 Other: Date of Last Bowel Movement 10/04/17 10/04/17 10/04/17 Narrative: GENERAL: Well-developed, well-nourished, in no acute distress. HEENT: Head is normocephalic without any lesions or masses noted. Facial features are symmetric. NECK: Supple without any masses. Trachea midline no deviation. No JVD, no bruits are appreciated. CARDIAC: Regular rhythm, regular rate. S1/S2 are heard. No murmurs gallops or rubs. LUNGS: Clear to auscultation bilaterally. No wheeze, rhonchi or rales. No use of accessory muscles on inspiration or expiration. ABDOMEN: Soft, nontender. Nondistended. Bowel sounds heard in all 4 quadrants. No organomegaly or masses. Negative rebound, negative guarding EXTREMITIES: No edema. Bandage on right foot. NEUROLOGY: Cranial nerves II through XII grossly intact. Muscle strength 5/5 in upper and lower extremities bilaterally. Deep tendon reflexes are 2+ in upper and lower extremities bilaterally. Results - Labs CBC & Chem 7: 10/10/17 06:50 10/10/17 06:50 Laboratory Results - last 24 hr 10/09/17 10/09/17 10/09/17 11:50 12:34 16:44 WBC RBC Hgb Hct MCV MCH MCHC RDW Plt Count MPV Neut % (Auto) Lymph % (Auto) [place] % (Auto) Eos % (Auto) Baso % (Auto) Neut # (Auto) Lymph # (Auto) [place] # (Auto) Eos # (Auto) Baso # (Auto) WBC Differential Differential Comment APTT 29.0 Sodium Potassium Chloride Carbon Dioxide Anion Gap BUN Creatinine Estimated GFR POC Glucose 219 H 155 H Random Glucose Calcium Total Bilirubin Direct Bilirubin Indirect Bilirubin AST ALT Alkaline Phosphatase Total Protein Albumin 10/09/17 10/09/17 10/10/17 18:10 20:01 01:23 WBC RBC Hgb Hct MCV MCH MCHC RDW Plt Count MPV Neut % (Auto) Lymph % (Auto) [place] % (Auto) Eos % (Auto) Baso % (Auto) Neut # (Auto) Lymph # (Auto) [place] # (Auto) Eos # (Auto) Baso # (Auto) WBC Differential Differential Comment APTT 31.2 H 33.4 H Sodium Potassium Chloride Carbon Dioxide Anion Gap BUN Creatinine Estimated GFR POC Glucose 183 H Random Glucose Calcium Total Bilirubin Direct Bilirubin Indirect Bilirubin AST ALT Alkaline Phosphatase Total Protein Albumin 10/10/17 10/10/17 10/10/17 06:50 06:50 08:00 WBC 7.8 RBC 3.46 L Hgb 10.1 L Hct 29.3 L MCV 84.5 MCH 29.0 MCHC 34.4 RDW 14.3 Plt Count 115 L MPV 8.9 Neut % (Auto) 65.9 Lymph % (Auto) 17.7 [place] % (Auto) 13.7 H Eos % (Auto) 2.1 Baso % (Auto) 0.6 Neut # (Auto) 5.1 Lymph # (Auto) 1.4 [place] # (Auto) 1.1 H Eos # (Auto) 0.2 Baso # (Auto) 0.0 WBC Differential . Differential Comment Auto diff final APTT Sodium 142 Potassium 3.8 Chloride 111 H Carbon Dioxide 18.9 L Anion Gap 12 BUN 20 H Creatinine 0.77 Estimated GFR Greater than 89 POC Glucose 163 H Random Glucose 132 H Calcium 8.2 L Total Bilirubin 0.5 Direct Bilirubin 0.2 Indirect Bilirubin 0.3 AST 11 L ALT 11 L Alkaline Phosphatase 63 Total Protein 5.7 L Albumin 2.1 L Microbiology 10/07/17 17:53 Blood - Peripheral Aerobic Blood Culture - Final Staphylococcus aureus 10/07/17 17:53 Blood - Peripheral Anaerobic Blood Culture - Preliminary gram positive cocci 10/07/17 20:07 Blood - Peripheral Aerobic Blood Culture - Final Staphylococcus aureus 10/07/17 20:07 Blood - Peripheral Anaerobic Blood Culture - Preliminary No growth in 2 days 10/07/17 14:20 Sputum - Expectorated Sputum Gram Stain - Final 10/07/17 14:20 Sputum - Expectorated Sputum Sputum Culture - Final Heavy growth normal respiratory caterina 10/06/17 08:40 Blood - Peripheral Aerobic Blood Culture - Final Staphylococcus aureus 10/06/17 08:40 Blood - Peripheral Anaerobic Blood Culture - Final Staphylococcus aureus 10/06/17 08:35 Blood - Peripheral Aerobic Blood Culture - Final Staphylococcus aureus 10/06/17 08:35 Blood - Peripheral Anaerobic Blood Culture - Final Staphylococcus aureus - Imaging Impressions Chest X-Ray 10/09/17 09:27 CONCLUSION: 1. Cardiomegaly with new mild positive fluid balance. - Procedures Awaiting echocardiogram Assessment and Plan - Plan Non-ST elevated myocardial infarction -Patient does have increased risk factors to include age, male, hypertension, hyperlipidemia, coronary artery disease, cardiomyopathy -Patient did have serial cardiac enzymes performed which did show a significant elevation up to 7.05 now going down to 2.63 -EKG does show acute changes with inverted T waves in inferior leads and ST depressions in the lateral leads -Patient is Coreg, statin, will start aspirin, nitroglycerin as needed -Cardiology has been consulted and says he is not a candidate for cardiac catheterization. They recommend palliative care or referral for heart transplant work-up. -Continue oxygen -Continue monitor telemetry -Morphine for pain control Bacteremia -High-grade MSSA infection from PICC line. Repeat cultures also positive. -PICC line has been removed. -Infectious disease consulted. Continue antibiotics. Consider CARA. Sepsis, resolved -Patient did meet criteria on presentation with leukocytosis, lactic acidosis, source of infection -Patient was started on empiric antibiotics include vancomycin, Zosyn -Patient was pancultured and found to have bacteremia as above Anxiety The pt has episodes of shaking and respiratory distress that may be s/t anxiety. - Ativan as needed. Diabetic ketoacidosis, uncontrolled diabetes, improved -Status post insulin drip -Hemoglobin A1c 8.2 -Continue sliding scale insulin Metabolic/toxic encephalopathy, likely secondary to infection, diabetic ketoacidosis, resolved -Continue monitor neuro checks Lactic acid acidosis, resolved -Multifactorial with diabetic ketoacidosis and sepsis Acute renal failure superimposed on chronic kidney disease stage II, improved -BRIANA inhibitor has been held -Avoid nephrotoxins DVT prevention -Patient is on heparin IV
[2017-10-10] MEDS: Insulin Detemir Inj 1,000 UNIT/10 ML Vial SQ SCH (09:15)
[2017-10-10] MEDS: Insulin NovoLOG Aspart Correctional Sugar Inj SQ SCH ×4 (09:16→20:47)
[2017-10-10] MEDS: Carvedilol 6.25 MG Tablet PO SCH ×2 (09:17→20:47)
[2017-10-10] MEDS: Senna/Docusate Sodium 8.6/50 MG Tablet PO SCH ×2 (09:17→20:47)
[2017-10-10] MEDS: Heparin Drip 25,000 UNIT/250 ML BAG IV.CONT PRN (11:58)
[2017-10-10] MEDS: Polyethylene Glycol 3350 17 GM Packet PO SCH (12:34)
[2017-10-10] MEDS: Furosemide 20 MG Tablet PO SCH (12:36)
--- NOTE | 2017-10-10 14:33 | P.PNCA ---
Subjective Interval history: episode of chills and dyspnea @ 3am ow assymptomatic in nad, appears comfortable Physical Exam Vital signs: Vital Signs 10/09/17 15:00 10/09/17 16:00 10/09/17 17:00 Temperature 98.6 F Pulse Rate 76 82 84 Respiratory Rate 18 Blood Pressure 114/72 Pulse Oximetry 98 10/09/17 18:00 10/09/17 19:00 10/09/17 19:53 Temperature 97.6 F Pulse Rate 82 76 78 Respiratory Rate 18 16 Blood Pressure 122/67 Pulse Oximetry 98 98 10/09/17 20:00 10/09/17 21:00 10/09/17 21:21 Temperature Pulse Rate 76 80 155 H Respiratory Rate Blood Pressure Pulse Oximetry 10/09/17 22:00 10/09/17 23:00 10/10/17 00:00 Temperature 98.4 F Pulse Rate 74 80 78 Respiratory Rate 18 Blood Pressure 122/72 Pulse Oximetry 99 10/10/17 00:58 10/10/17 02:00 10/10/17 03:00 Temperature 98.4 F Pulse Rate 77 106 H 90 Respiratory Rate Blood Pressure 125/74 Pulse Oximetry 98 10/10/17 04:00 10/10/17 05:00 10/10/17 05:57 Temperature Pulse Rate 83 83 78 Respiratory Rate Blood Pressure Pulse Oximetry 10/10/17 07:00 10/10/17 08:00 10/10/17 09:00 Temperature 98.3 F Pulse Rate 82 74 73 Respiratory Rate 18 Blood Pressure 119/68 Pulse Oximetry 99 95 10/10/17 10:00 10/10/17 11:00 10/10/17 12:00 Temperature 98.5 F Pulse Rate 78 83 84 Respiratory Rate Blood Pressure 128/78 Pulse Oximetry 98 10/10/17 13:00 10/10/17 14:00 Temperature Pulse Rate 86 82 Respiratory Rate Blood Pressure Pulse Oximetry Intake & Output 10/09/17 10/10/17 10/10/17 18:59 06:59 18:59 Intake Total 1350 / 1350 1240 / 1240 250 / 250 Output Total 710 / 710 950 / 950 Balance 640 / 640 290 / 290 250 / 250 Weight 96 kg Intake: IV 300 / 300 300 / 300 250 / 250 Heparin/D5W 25,000 U/250 mL 25, 250 / 250 000 unit In 250 ml @ Per Protocol IV.CONT TITRATE PRN Rx #:[id number] Prostaphlin Inj 2 GM In NS Inj 300 / 300 300 / 300 100 ML @ 200 mls/hr IV.SIG Q4H JEFE Rx#:[id number] Oral 1050 / 1050 940 / 940 Output: Urine 710 / 710 950 / 950 Other: Date of Last Bowel Movement 10/04/17 10/04/17 10/04/17 Assessment and Plan - Assessment (1) ACS (acute coronary syndrome) Code(s): I24.9 - Acute ischemic heart disease, unspecified Status: Acute (2) Acidosis, lactic Code(s): E87.2 - Acidosis Status: Acute (3) DKA (diabetic ketoacidoses) Code(s): E13.10 - Other specified diabetes mellitus with ketoacidosis without coma Status: Acute (4) Frequent unifocal PVCs Code(s): I49.3 - Ventricular premature depolarization Status: Acute - Plan consult case management for transfer for heart transplant eval and palliative care, d/w Dr Fernando and nurse; he appears to assymptomatic when not tachycardic , prognosis is poor
[2017-10-10] MEDS: LORazepam 1 MG Tablet PO PRN ×2 (14:58→21:28)
--- NOTE | 2017-10-10 16:17 | P.PNID ---
Subjective Remarks: no fever, nausea persistent bacteremia toleratin oxacillin OK Antibiotics: oxacillin Past Medical History: R 2nd toe osteo CAD AICD Allergies/Adverse Reactions: Allergies potassium iodide Allergy (Severe, Verified 10/06/17 09:36) Swelling povidone-iodine Allergy (Severe, Verified 10/06/17 09:36) Swelling shellfish derived Allergy (Severe, Verified 10/06/17 09:36) Swelling sodium iodide Allergy (Severe, Verified 10/06/17 09:36) Swelling sodium iodide Allergy (Severe, Verified 10/06/17 09:36) Swelling Objective Vital Signs 10/09/17 17:00 10/09/17 18:00 10/09/17 19:00 Temperature 97.6 F Pulse Rate 84 82 76 Respiratory Rate 18 Blood Pressure 122/67 Pulse Oximetry 98 10/09/17 19:53 10/09/17 20:00 10/09/17 21:00 Temperature Pulse Rate 78 76 80 Respiratory Rate 16 Blood Pressure Pulse Oximetry 98 10/09/17 21:21 10/09/17 22:00 10/09/17 23:00 Temperature 98.4 F Pulse Rate 155 H 74 80 Respiratory Rate 18 Blood Pressure 122/72 Pulse Oximetry 99 10/10/17 00:00 10/10/17 00:58 10/10/17 02:00 Temperature Pulse Rate 78 77 106 H Respiratory Rate Blood Pressure Pulse Oximetry 10/10/17 03:00 10/10/17 04:00 10/10/17 05:00 Temperature 98.4 F Pulse Rate 90 83 83 Respiratory Rate Blood Pressure 125/74 Pulse Oximetry 98 10/10/17 05:57 10/10/17 07:00 10/10/17 08:00 Temperature 98.3 F Pulse Rate 78 82 74 Respiratory Rate 18 Blood Pressure 119/68 Pulse Oximetry 99 95 10/10/17 09:00 10/10/17 10:00 10/10/17 11:00 Temperature 98.5 F Pulse Rate 73 78 83 Respiratory Rate Blood Pressure 128/78 Pulse Oximetry 98 10/10/17 12:00 10/10/17 13:00 10/10/17 14:00 Temperature Pulse Rate 84 86 82 Respiratory Rate Blood Pressure Pulse Oximetry 10/10/17 15:00 Temperature 98.2 F Pulse Rate 84 Respiratory Rate Blood Pressure 124/76 Pulse Oximetry 97 Intake & Output 10/09/17 10/10/17 10/10/17 18:59 06:59 18:59 Intake Total 1350 / 1350 1240 / 1240 350 / 350 Output Total 710 / 710 950 / 950 Balance 640 / 640 290 / 290 350 / 350 Weight 96 kg Intake: IV 300 / 300 300 / 300 350 / 350 Heparin/D5W 25,000 U/250 mL 25, 250 / 250 000 unit In 250 ml @ Per Protocol IV.CONT TITRATE PRN Rx #:[id number] Prostaphlin Inj 2 GM In NS Inj 300 / 300 300 / 300 100 / 100 100 ML @ 200 mls/hr IV.SIG Q4H JEFE Rx#:[id number] Oral 1050 / 1050 940 / 940 Output: Urine 710 / 710 950 / 950 Other: Date of Last Bowel Movement 10/04/17 10/04/17 10/04/17 10/07/17 20:07 Blood - Peripheral Aerobic Blood Culture - Final Staphylococcus aureus 10/07/17 20:07 Blood - Peripheral Anaerobic Blood Culture - Preliminary No growth in 3 days 10/07/17 17:53 Blood - Peripheral Aerobic Blood Culture - Final Staphylococcus aureus 10/07/17 17:53 Blood - Peripheral Anaerobic Blood Culture - Preliminary gram positive cocci 10/07/17 14:20 Sputum - Expectorated Sputum Gram Stain - Final 10/07/17 14:20 Sputum - Expectorated Sputum Sputum Culture - Final Heavy growth normal respiratory caterina 10/06/17 08:40 Blood - Peripheral Aerobic Blood Culture - Final Staphylococcus aureus 10/06/17 08:40 Blood - Peripheral Anaerobic Blood Culture - Final Staphylococcus aureus 10/06/17 08:35 Blood - Peripheral Aerobic Blood Culture - Final Staphylococcus aureus 10/06/17 08:35 Blood - Peripheral Anaerobic Blood Culture - Final Staphylococcus aureus 10/07/17 14:00 Urine - Clean Catch Urine Streptococcus pneumoniae Antigen ( M - Final Presumptive negative for streptococcus pneumoniae antigen, suggesting no current or recent infection. Infection due to Streptococcus pneumoniae cannot be ruled out since the antigen present in the sample may be below the detection limit of the test. 10/07/17 14:00 Urine - Clean Catch Urine Legionella Antigen - Final Presumptive negative for Legionella pneumophila serogroup 1 antigen in urine, suggesting no recent or recurrent infection. Infection due to Legionella cannot be ruled out since other serogroups and species may cause disease, antigen may not be present in urine in early infection, and the level of antigen present in the urine may be below the detection limit of the test. 10/07/17 13:45 Nasal Wash Influenza Types A,B Antigen - Final Negative for FLU A and B antigen Infection due to influenza A or B cannot be ruled out since the antigen present in the sample may be below the detection limit of the test. Lab - Hematology Results 10/09/17 10/10/17 03:30 06:50 WBC 7.3 7.8 RBC 3.46 L 3.46 L Hgb 9.8 L 10.1 L Hct 29.2 L 29.3 L MCV 84.3 84.5 MCH 28.4 29.0 MCHC 33.7 34.4 RDW 14.6 14.3 Plt Count 107 L 115 L MPV 8.6 8.9 Neut % (Auto) 64.3 65.9 Lymph % (Auto) 19.5 17.7 [place] % (Auto) 14.0 H 13.7 H Eos % (Auto) 1.7 2.1 Baso % (Auto) 0.5 0.6 Neut # (Auto) 4.7 5.1 Lymph # (Auto) 1.4 1.4 [place] # (Auto) 1.0 H 1.1 H Eos # (Auto) 0.1 0.2 Baso # (Auto) 0.0 0.0 WBC Differential . . Differential Comment Auto diff final Auto diff final Lab - Chemistry Results 10/08/17 10/08/17 10/09/17 16:59 20:03 03:30 Sodium 144 Potassium 3.6 Chloride 113 H Carbon Dioxide 20.0 L Anion Gap 11 BUN 23 H Creatinine 0.72 Estimated GFR Greater than 89 POC Glucose 195 H 246 H Random Glucose 71 L Calcium 8.2 L Total Bilirubin 0.5 Direct Bilirubin Indirect Bilirubin AST 12 L ALT 11 L Alkaline Phosphatase 156 H Total Protein 5.5 L Albumin 2.0 L 10/09/17 10/09/17 10/09/17 11:50 16:44 20:01 Sodium Potassium Chloride Carbon Dioxide Anion Gap BUN Creatinine Estimated GFR POC Glucose 219 H 155 H 183 H Random Glucose Calcium Total Bilirubin Direct Bilirubin Indirect Bilirubin AST ALT Alkaline Phosphatase Total Protein Albumin 10/10/17 10/10/17 10/10/17 06:50 08:00 12:10 Sodium 142 Potassium 3.8 Chloride 111 H Carbon Dioxide 18.9 L Anion Gap 12 BUN 20 H Creatinine 0.77 Estimated GFR Greater than 89 POC Glucose 163 H 188 H Random Glucose 132 H Calcium 8.2 L Total Bilirubin 0.5 Direct Bilirubin 0.2 Indirect Bilirubin 0.3 AST 11 L ALT 11 L Alkaline Phosphatase 63 Total Protein 5.7 L Albumin 2.1 L Imaging: ITS Impressions Abdomen/Pelvis CT 10/06/17 00:00 CONCLUSION: 1. No acute abnormality seen. 2. Increased density at the posterior lower lobes likely related to mild atelectasis. 3. Scattered atherosclerotic calcifications throughout the arterial system. 4. Degenerative and postsurgical change in the lumbar spine. Chest X-Ray 10/09/17 09:27 CONCLUSION: 1. Cardiomegaly with new mild positive fluid balance. Physical Exam: GENERAL: SKIN: Warm and dry. HEAD: Atraumatic. Normocephalic. EYES: Pupils equal and round. No scleral icterus. No injection or drainage. ENT: No nasal bleeding or discharge. Mucous membranes pink and moist. NECK: Trachea midline. No JVD. CARDIOVASCULAR: Regular rate and rhythm. AICD in place, no skin changes, well healed incision RESPIRATORY: No accessory muscle use. Clear to auscultation. Breath sounds equal bilaterally. GASTROINTESTINAL: Abdomen soft, non-tender, nondistended. Hepatic and splenic margins not palpable. MUSCULOSKELETAL: Extremities without clubbing, cyanosis, or edema. No obvious deformities. dressong in p;livia R foot s/p 2nd R toe amputation NEUROLOGICAL: Awake and alert. No obvious cranial nerve deficits. Motor grossly within normal limits. Five out of 5 muscle strength in the arms and legs. Normal speech. PSYCHIATRIC: Appropriate mood and affect; insight and judgment normal. Assessment and Plan (1) Staphylococcal sepsis Status: Acute Code(s): A41.2 - Sepsis due to unspecified staphylococcus (2) Staphylococcus aureus bacteremia with sepsis Status: Acute Code(s): A41.01 - Sepsis due to Methicillin susceptible Staphylococcus aureus - Plan MSSAhigh grade bactermia 2/2 PICC line Recent osteo 2 nd toe sp amputaiton AICD cont oxacillin - monitoring parameters: CBC, CMP at least weekly CARA Xray of foot more BC dw pt, sister @ b/s paola RN
--- NOTE | 2017-10-10 17:59 | XR ---
EXAM DATE: 10/10/2017 5:07 PM EDT AGE/SEX: 57 years / Male INDICATIONS: Right foot pain CLINICAL DATA: This is the patient's initial encounter. Patient reports that signs and symptoms have been present for 4 - 6 days and indicates a pain score of 0/10. MEDICAL/SURGICAL HISTORY: . Diabetes. Congestive heart failure. Hepatitis C. Myocardial infarct ion . . . Pacemaker. Appendectomy. CABG, Amputation right foot 2nd toe COMPARISON: [facility] – [place], TOE RIGHT 2ND DIGIT(MIN 2VWS), 08/15/2017. . FINDINGS: The second toe has been amputated. Degenerative joint disease is identified in the proximal interphalangeal joint of the third toe which is stable. Bony structures are otherwise intact. There are no erosive or destructive changes. There is no eviden ce of acute fracture. CONCLUSION: Status post amputation of the second toe. No acute bony abnormality or destructive changes. Electronically signed by: Vince Barry MD 10/10/2017 5:58 PM EDT
[2017-10-11] MEDS: Heparin Drip 25,000 UNIT/250 ML BAG IV.CONT PRN ×2 (03:16→19:17)
[2017-10-11] MEDS: Morphine Sulfate Inj 2 MG/ML Vial IV.PUSH PRN (04:30)
[2017-10-11] MEDS: Carvedilol 6.25 MG Tablet PO SCH ×2 (09:01→20:42)
[2017-10-11] MEDS: Furosemide 20 MG Tablet PO SCH (09:02)
[2017-10-11] MEDS: Senna/Docusate Sodium 8.6/50 MG Tablet PO SCH ×2 (09:02→20:42)
[2017-10-11] MEDS: Polyethylene Glycol 3350 17 GM Packet PO SCH (09:03)
[2017-10-11] MEDS: Insulin Detemir Inj 1,000 UNIT/10 ML Vial SQ SCH (09:16)
[2017-10-11] MEDS: Insulin NovoLOG Aspart Correctional Sugar Inj SQ SCH ×4 (09:16→20:42)
--- NOTE | 2017-10-11 09:57 | P.PN ---
Physical Exam Vital signs: Vital Signs 10/10/17 10:00 10/10/17 11:00 10/10/17 12:00 Temperature 98.5 F Pulse Rate 78 83 84 Respiratory Rate Blood Pressure 128/78 Pulse Oximetry 98 10/10/17 13:00 10/10/17 14:00 10/10/17 15:00 Temperature 98.2 F Pulse Rate 86 82 84 Respiratory Rate Blood Pressure 124/76 Pulse Oximetry 97 10/10/17 16:00 10/10/17 17:00 10/10/17 18:00 Temperature Pulse Rate 82 82 86 Respiratory Rate Blood Pressure Pulse Oximetry 10/10/17 19:00 10/10/17 20:00 10/10/17 21:00 Temperature 99.4 F Pulse Rate 79 78 78 Respiratory Rate 18 Blood Pressure 127/69 Pulse Oximetry 99 10/10/17 22:00 10/10/17 23:00 10/11/17 00:00 Temperature 97.9 F Pulse Rate 78 79 79 Respiratory Rate 16 Blood Pressure 128/61 Pulse Oximetry 98 10/11/17 01:00 10/11/17 02:00 10/11/17 03:00 Temperature 97.9 F Pulse Rate 85 73 67 Respiratory Rate 16 Blood Pressure 121/58 L Pulse Oximetry 98 10/11/17 04:00 10/11/17 05:00 10/11/17 06:00 Temperature Pulse Rate 80 76 75 Respiratory Rate Blood Pressure Pulse Oximetry Intake & Output 10/10/17 10/11/17 10/11/17 18:59 06:59 18:59 Intake Total 1825 / 1825 1750 / 1750 Output Total 1330 / 1330 1400 / 1400 Balance 495 / 495 350 / 350 Weight 91 kg Intake: IV 550 / 550 550 / 550 Heparin/D5W 25,000 U/250 mL 25, 250 / 250 250 / 250 000 unit In 250 ml @ Per Protocol IV.CONT TITRATE PRN Rx #:[id number] Prostaphlin Inj 2 GM In NS Inj 300 / 300 300 / 300 100 ML @ 200 mls/hr IV.SIG Q4H JEFE Rx#:[id number] Oral 1275 / 1275 1200 / 1200 Output: Urine 1330 / 1330 1400 / 1400 Other: Date of Last Bowel Movement 10/04/17 10/10/17 Narrative: Subjective Interval history: Patient is in bed. He complained of back spasm. No chest pain or shortness of breath overnight. He is however not doing much exertion. No nausea or vomiting. Eating fairly well. Physical Exam GENERAL: 57-year-old male, well-developed, well-nourished, in no acute distress. CARDIAC: Regular rhythm, regular rate. No MRG LUNGS: Clear to auscultation bilaterally. No wheeze, rhonchi or rales. ABDOMEN: Bowel sounds present. No distention. EXTREMITIES: No edema. Bandage on right foot, CDI. NEUROLOGY: Awake and alert. Cranial nerves II through XII grossly intact. Muscle strength 5/5 in upper and lower extremities bilaterally. Assessment and Plan Non-ST elevated myocardial infarction -Patient does have increased risk factors to include age, male, hypertension, hyperlipidemia, coronary artery disease, cardiomyopathy -Patient did have serial cardiac enzymes performed which did show a significant elevation up to 7.05 now going down to 2.63 -EKG does show acute changes with inverted T waves in inferior leads and ST depressions in the lateral leads -Patient is Coreg, statin, will start aspirin, nitroglycerin as needed -Cardiology has been consulted and says he is not a candidate for cardiac catheterization. They recommend palliative care or referral for heart transplant work-up. -Continue oxygen -Continue monitor telemetry -Morphine for pain control Bacteremia -High-grade MSSA infection from PICC line. Repeat cultures also positive. -PICC line has been removed. -Infectious disease consulted. Continue antibiotics. Consider CARA. Sepsis, resolved -Patient did meet criteria on presentation with leukocytosis, lactic acidosis, source of infection -Patient was started on empiric antibiotics include vancomycin, Zosyn -Patient was pancultured and found to have bacteremia as above Anxiety The pt has episodes of shaking and respiratory distress that may be s/t anxiety. - Ativan as needed. Diabetic ketoacidosis, uncontrolled diabetes, improved -Status post insulin drip -Hemoglobin A1c 8.2 -Continue sliding scale insulin Metabolic/toxic encephalopathy, likely secondary to infection, diabetic ketoacidosis, resolved -Continue monitor neuro checks Lactic acid acidosis, resolved -Multifactorial with diabetic ketoacidosis and sepsis Acute renal failure superimposed on chronic kidney disease stage II, improved -BRIANA inhibitor has been held -Avoid nephrotoxins Muscle spasm the back. Start Flexeril DVT prevention -Patient is on heparin IV Discussed with the patient, nurse Per Dr. Henao patient needs a heart transplant. Case management to be consulted Also palliative care consulted for goals of care Results - Labs CBC & Chem 7: 10/10/17 06:50 10/10/17 06:50 Laboratory Results - last 24 hr 10/10/17 10/10/17 10/10/17 12:10 17:07 19:56 APTT 31.5 H POC Glucose 188 H 250 H 10/11/17 10/11/17 02:25 09:05 APTT 35.7 H POC Glucose 211 H Microbiology 10/07/17 17:53 Blood - Peripheral Aerobic Blood Culture - Final Staphylococcus aureus 10/07/17 17:53 Blood - Peripheral Anaerobic Blood Culture - Final Staphylococcus aureus 10/07/17 20:07 Blood - Peripheral Aerobic Blood Culture - Final Staphylococcus aureus 10/07/17 20:07 Blood - Peripheral Anaerobic Blood Culture - Preliminary No growth in 3 days - Imaging Impressions Foot X-Ray 10/10/17 00:00 CONCLUSION: Status post amputation of the second toe. No acute bony abnormality or destructive changes. - Procedures Awaiting echocardiogram
[2017-10-11] MEDS: LORazepam 1 MG Tablet PO PRN (18:58)
[2017-10-11] MEDS: Hypromellose 0.3% Opth Gel 10 GM Bottle EACH EYE SCH (21:47)
[2017-10-12] MEDS: Carvedilol 6.25 MG Tablet PO SCH ×2 (08:11→21:37)
[2017-10-12] MEDS: Furosemide 20 MG Tablet PO SCH (08:11)
[2017-10-12] MEDS: Senna/Docusate Sodium 8.6/50 MG Tablet PO SCH ×2 (08:12→21:37)
[2017-10-12] MEDS: Insulin Detemir Inj 1,000 UNIT/10 ML Vial SQ SCH (08:13)
[2017-10-12] MEDS: Insulin NovoLOG Aspart Correctional Sugar Inj SQ SCH ×4 (08:19→21:40)
[2017-10-12] MEDS: Heparin Drip 25,000 UNIT/250 ML BAG IV.CONT PRN (12:19)
[2017-10-12] MEDS: Polyethylene Glycol 3350 17 GM Packet PO SCH (13:08)
--- NOTE | 2017-10-12 13:17 | P.PNCA ---
Subjective Interval history: appears comfortable in nad Physical Exam Vital signs: Vital Signs 10/11/17 14:00 10/11/17 15:00 10/11/17 16:00 Temperature 98.9 F Pulse Rate 70 73 66 Respiratory Rate 20 Blood Pressure 112/57 L Pulse Oximetry 98 10/11/17 17:00 10/11/17 18:00 10/11/17 19:00 Temperature 99.2 F Pulse Rate 62 76 78 Respiratory Rate 20 Blood Pressure 127/60 Pulse Oximetry 10/11/17 19:24 10/11/17 19:25 10/11/17 20:00 Temperature Pulse Rate 77 78 Respiratory Rate 18 Blood Pressure Pulse Oximetry 98 10/11/17 21:00 10/11/17 22:00 10/11/17 23:00 Temperature 98.2 F Pulse Rate 80 72 78 Respiratory Rate 18 Blood Pressure 125/63 Pulse Oximetry 98 10/12/17 00:00 10/12/17 01:00 10/12/17 02:00 Temperature Pulse Rate 78 72 71 Respiratory Rate Blood Pressure Pulse Oximetry 10/12/17 03:00 10/12/17 04:00 10/12/17 05:00 Temperature 98.5 F Pulse Rate 72 69 76 Respiratory Rate 16 Blood Pressure 122/61 Pulse Oximetry 98 10/12/17 06:00 10/12/17 07:00 10/12/17 08:00 Temperature 98.4 F Pulse Rate 79 72 80 Respiratory Rate 22 Blood Pressure 130/63 Pulse Oximetry 98 10/12/17 08:12 10/12/17 09:00 10/12/17 10:00 Temperature Pulse Rate 70 74 72 Respiratory Rate 18 Blood Pressure Pulse Oximetry 96 Intake & Output 10/11/17 10/12/17 10/12/17 18:59 06:59 18:59 Intake Total 1410 / 1410 640 / 640 250 / 250 Output Total 2050 / 0 1350 / 1350 Balance -640 / -640 -710 / -710 250 / 250 Weight 89 kg Intake: IV 450 / 450 400 / 400 250 / 250 Heparin/D5W 25,000 U/250 mL 25, 250 / 250 250 / 250 000 unit In 250 ml @ Per Protocol IV.CONT TITRATE PRN Rx #:[id number] Prostaphlin Inj 2 GM In NS Inj 200 / 200 400 / 400 100 ML @ 200 mls/hr IV.SIG Q4H [facility] Rx#:[id number] Oral 960 / 960 240 / 240 Output: Urine 2049 1350 / 1350 Other: Date of Last Bowel Movement 10/10/17 10/11/17 Assessment and Plan - Assessment (1) ACS (acute coronary syndrome) Code(s): I24.9 - Acute ischemic heart disease, unspecified Status: Acute (2) Acidosis, lactic Code(s): E87.2 - Acidosis Status: Acute (3) DKA (diabetic ketoacidoses) Code(s): E13.10 - Other specified diabetes mellitus with ketoacidosis without coma Status: Acute (4) Frequent unifocal PVCs Code(s): I49.3 - Ventricular premature depolarization Status: Acute - Plan consult case management for transfer for heart transplant eval and palliative care, d/w Dr Fernando and nurse; he appears to assymptomatic when not tachycardic , prognosis is poor 2.) CARA - try to schedule 10/14/17 due to possibility of icd sbe
--- NOTE | 2017-10-12 17:20 | P.PN ---
Physical Exam Vital signs: Vital Signs 10/11/17 18:00 10/11/17 19:00 10/11/17 19:24 Temperature 99.2 F Pulse Rate 76 78 Respiratory Rate 20 Blood Pressure 127/60 Pulse Oximetry 98 10/11/17 19:25 10/11/17 20:00 10/11/17 21:00 Temperature Pulse Rate 77 78 80 Respiratory Rate 18 Blood Pressure Pulse Oximetry 10/11/17 22:00 10/11/17 23:00 10/12/17 00:00 Temperature 98.2 F Pulse Rate 72 78 78 Respiratory Rate 18 Blood Pressure 125/63 Pulse Oximetry 98 10/12/17 01:00 10/12/17 02:00 10/12/17 03:00 Temperature 98.5 F Pulse Rate 72 71 72 Respiratory Rate 16 Blood Pressure 122/61 Pulse Oximetry 98 10/12/17 04:00 10/12/17 05:00 10/12/17 06:00 Temperature Pulse Rate 69 76 79 Respiratory Rate Blood Pressure Pulse Oximetry 10/12/17 07:00 10/12/17 08:00 10/12/17 08:12 Temperature 98.4 F Pulse Rate 72 80 70 Respiratory Rate 22 18 Blood Pressure 130/63 Pulse Oximetry 98 96 10/12/17 09:00 10/12/17 10:00 10/12/17 11:00 Temperature 98.6 F Pulse Rate 74 72 86 Respiratory Rate 18 Blood Pressure 140/72 Pulse Oximetry 100 10/12/17 14:00 10/12/17 15:00 10/12/17 16:00 Temperature 98.3 F Pulse Rate 74 81 78 Respiratory Rate 18 Blood Pressure 148/78 H Pulse Oximetry 99 10/12/17 17:00 10/12/17 17:11 Temperature Pulse Rate 77 80 Respiratory Rate Blood Pressure Pulse Oximetry Intake & Output 10/11/17 10/12/17 10/12/17 18:59 06:59 18:59 Intake Total 1410 / 1410 640 / 640 1225 / 1225 Output Total 2050 / 2050 1350 / 1350 1750 / 1750 Balance -640 / -640 -710 / -710 -525 / -525 Weight 89 kg Intake: IV 450 / 450 400 / 400 250 / 250 Heparin/D5W 25,000 U/250 mL 25, 250 / 250 250 / 250 000 unit In 250 ml @ Per Protocol IV.CONT TITRATE PRN Rx #:[id number] Prostaphlin Inj 2 GM In NS Inj 200 / 200 400 / 400 100 ML @ 200 mls/hr IV.SIG Q4H [facility] Rx#:[id number] Oral 960 / 960 240 / 240 975 / 975 Output: Urine 2049 1350 / 1350 1750 / 1750 Other: Date of Last Bowel Movement 10/10/17 10/11/17 Narrative: Subjective Interval history: Patient is in bed. Denies any chest pain at this time. Some shortness of breath however satting well. Back pain improved with Flexeril. No lower extremity edema. Physical Exam GENERAL: 57-year-old male, well-developed, well-nourished, in no acute distress. CARDIAC: Regular rhythm, regular rate. No MRG LUNGS: Clear to auscultation bilaterally. No wheeze, rhonchi or rales. ABDOMEN: Bowel sounds present. No distention. EXTREMITIES: No edema. Bandage on right foot, CDI. NEUROLOGY: Awake and alert. Cranial nerves II through XII grossly intact. Muscle strength 5/5 in upper and lower extremities bilaterally. Assessment and Plan Non-ST elevated myocardial infarction -Patient does have increased risk factors to include age, male, hypertension, hyperlipidemia, coronary artery disease, cardiomyopathy -Patient did have serial cardiac enzymes performed which did show a significant elevation up to 7.05 now going down to 2.63 -EKG does show acute changes with inverted T waves in inferior leads and ST depressions in the lateral leads -Patient is Coreg, statin, will start aspirin, nitroglycerin as needed -Cardiology has been consulted and says he is not a candidate for cardiac catheterization. They recommend palliative care or referral for heart transplant work-up. -Continue oxygen -Continue monitor telemetry -Morphine for pain control Bacteremia -High-grade MSSA infection from PICC line. Repeat cultures also positive. -PICC line has been removed. -Infectious disease consulted. Continue antibiotics. Consider CARA. Sepsis, resolved -Patient did meet criteria on presentation with leukocytosis, lactic acidosis, source of infection -Patient was started on empiric antibiotics include vancomycin, Zosyn -Patient was pancultured and found to have bacteremia as above Anxiety The pt has episodes of shaking and respiratory distress that may be s/t anxiety. - Ativan as needed. Diabetic ketoacidosis, uncontrolled diabetes, improved -Status post insulin drip -Hemoglobin A1c 8.2 -Continue sliding scale insulin Metabolic/toxic encephalopathy, likely secondary to infection, diabetic ketoacidosis, resolved -Continue monitor neuro checks Lactic acid acidosis, resolved -Multifactorial with diabetic ketoacidosis and sepsis Acute renal failure superimposed on chronic kidney disease stage II, improved -BRIANA inhibitor has been held -Avoid nephrotoxins Muscle spasm the back. Start Flexeril DVT prevention -Patient is on heparin IV Discussed with the patient, nurse Per Dr. Henao patient needs a heart transplant. Case management to be consulted Also palliative care consulted for goals of care Results - Labs CBC & Chem 7: 10/10/17 06:50 10/10/17 06:50 Laboratory Results - last 24 hr 10/11/17 10/11/17 10/11/17 18:23 18:28 19:52 APTT 38.9 H POC Glucose 199 H 244 H 10/12/17 10/12/17 10/12/17 00:44 08:16 08:32 APTT 40.1 H 40.4 H POC Glucose 155 H 10/12/17 10/12/17 10/12/17 13:05 15:19 17:05 APTT 39.5 H POC Glucose 304 H 88 Microbiology 10/11/17 02:20 Blood - Peripheral Aerobic Blood Culture - Preliminary No growth in 1 day 10/11/17 02:20 Blood - Peripheral Anaerobic Blood Culture - Preliminary No growth in 1 day 10/11/17 02:25 Blood - Peripheral Aerobic Blood Culture - Preliminary No growth in 1 day 10/11/17 02:25 Blood - Peripheral Anaerobic Blood Culture - Preliminary No growth in 1 day 10/07/17 20:07 Blood - Peripheral Aerobic Blood Culture - Final Staphylococcus aureus 10/07/17 20:07 Blood - Peripheral Anaerobic Blood Culture - Final No growth in 5 days 10/07/17 17:53 Blood - Peripheral Aerobic Blood Culture - Final Staphylococcus aureus 10/07/17 17:53 Blood - Peripheral Anaerobic Blood Culture - Final Staphylococcus aureus - Procedures Awaiting echocardiogram
[2017-10-13] MEDS: LORazepam 1 MG Tablet PO PRN ×2 (01:59→22:17)
[2017-10-13] MEDS: Heparin Drip 25,000 UNIT/250 ML BAG IV.CONT PRN ×2 (02:00→17:04)
[2017-10-13] MEDS: Hypromellose 0.3% Opth Gel 10 GM Bottle EACH EYE SCH ×2 (02:18→22:08)
[2017-10-13] MEDS: Insulin Detemir Inj 1,000 UNIT/10 ML Vial SQ SCH (08:25)
[2017-10-13] MEDS: Insulin NovoLOG Aspart Correctional Sugar Inj SQ SCH ×5 (08:25→22:07)
[2017-10-13] MEDS: Carvedilol 6.25 MG Tablet PO SCH ×2 (08:26→22:08)
[2017-10-13] MEDS: Polyethylene Glycol 3350 17 GM Packet PO SCH (08:27)
[2017-10-13] MEDS: Furosemide 20 MG Tablet PO SCH (08:27)
[2017-10-13] MEDS: Senna/Docusate Sodium 8.6/50 MG Tablet PO SCH ×2 (08:27→22:08)
--- NOTE | 2017-10-13 10:34 | P.PNCA ---
Subjective Interval history: alert in nad Physical Exam Vital signs: Vital Signs 10/12/17 11:00 10/12/17 12:00 10/12/17 13:00 Temperature 98.6 F Pulse Rate 74 88 78 Respiratory Rate 18 Blood Pressure 140/72 Pulse Oximetry 100 10/12/17 14:00 10/12/17 15:00 10/12/17 16:00 Temperature 98.3 F Pulse Rate 74 81 78 Respiratory Rate 18 Blood Pressure 148/78 H Pulse Oximetry 99 10/12/17 17:00 10/12/17 17:11 10/12/17 19:00 Temperature Pulse Rate 77 80 71 Respiratory Rate Blood Pressure Pulse Oximetry 10/12/17 20:00 10/12/17 20:15 10/12/17 21:00 Temperature 98.4 F Pulse Rate 74 71 71 Respiratory Rate 18 Blood Pressure 130/66 Pulse Oximetry 97 10/12/17 22:00 10/12/17 23:00 10/12/17 23:25 Temperature 98.4 F Pulse Rate 73 78 76 Respiratory Rate 18 Blood Pressure 116/59 L Pulse Oximetry 97 10/13/17 00:00 10/13/17 01:00 10/13/17 02:00 Temperature Pulse Rate 72 78 71 Respiratory Rate Blood Pressure Pulse Oximetry 10/13/17 03:00 10/13/17 04:00 10/13/17 05:00 Temperature 98.2 F Pulse Rate 74 75 71 Respiratory Rate 18 Blood Pressure 111/56 L Pulse Oximetry 97 96 10/13/17 06:00 10/13/17 07:00 10/13/17 08:00 Temperature 98.1 F Pulse Rate 76 78 84 Respiratory Rate 18 Blood Pressure 118/62 Pulse Oximetry 98 10/13/17 08:09 10/13/17 09:00 10/13/17 10:00 Temperature Pulse Rate 78 80 Respiratory Rate Blood Pressure Pulse Oximetry 98 Intake & Output 10/12/17 10/13/17 10/13/17 18:59 06:59 18:59 Intake Total 1425 / 1425 810 / 810 Output Total 1750 / 1750 950 / 950 Balance -325 / -325 -140 / -140 Weight 86.7 kg Intake: IV 450 / 450 350 / 350 Heparin/D5W 25,000 U/250 mL 25, 250 / 250 250 / 250 000 unit In 250 ml @ Per Protocol IV.CONT TITRATE PRN Rx #:[id number] Prostaphlin Inj 2 GM In NS Inj 200 / 200 100 / 100 100 ML @ 200 mls/hr IV.SIG Q4H [facility] Rx#:[id number] Oral 975 / 975 460 / 460 Output: Urine 1750 / 1750 950 / 950 Other: Date of Last Bowel Movement 10/11/17 Assessment and Plan - Assessment (1) ACS (acute coronary syndrome) Code(s): I24.9 - Acute ischemic heart disease, unspecified Status: Acute (2) Acidosis, lactic Code(s): E87.2 - Acidosis Status: Acute (3) DKA (diabetic ketoacidoses) Code(s): E13.10 - Other specified diabetes mellitus with ketoacidosis without coma Status: Acute (4) Frequent unifocal PVCs Code(s): I49.3 - Ventricular premature depolarization Status: Acute - Plan consult case management for transfer for heart transplant eval and palliative care, d/w Dr Fernando and nurse; he appears to assymptomatic when not tachycardic , prognosis is poor 2.) CARA - try to schedule 10/14/17 due to possibility of icd sbe, d/w patient and his
--- NOTE | 2017-10-13 15:50 | P.PN ---
Physical Exam Vital signs: Vital Signs 10/12/17 16:00 10/12/17 17:00 10/12/17 17:11 Temperature Pulse Rate 78 77 80 Respiratory Rate Blood Pressure Pulse Oximetry 10/12/17 19:00 10/12/17 20:00 10/12/17 20:15 Temperature 98.4 F Pulse Rate 71 74 71 Respiratory Rate 18 Blood Pressure 130/66 Pulse Oximetry 97 10/12/17 21:00 10/12/17 22:00 10/12/17 23:00 Temperature 98.4 F Pulse Rate 71 73 78 Respiratory Rate 18 Blood Pressure 116/59 L Pulse Oximetry 97 10/12/17 23:25 10/13/17 00:00 10/13/17 01:00 Temperature Pulse Rate 76 72 78 Respiratory Rate Blood Pressure Pulse Oximetry 10/13/17 02:00 10/13/17 03:00 10/13/17 04:00 Temperature 98.2 F Pulse Rate 71 74 75 Respiratory Rate 18 Blood Pressure 111/56 L Pulse Oximetry 97 96 10/13/17 05:00 10/13/17 06:00 10/13/17 07:00 Temperature 98.1 F Pulse Rate 71 76 78 Respiratory Rate 18 Blood Pressure 118/62 Pulse Oximetry 98 10/13/17 08:00 10/13/17 08:09 10/13/17 09:00 Temperature Pulse Rate 84 78 Respiratory Rate Blood Pressure Pulse Oximetry 98 10/13/17 10:00 10/13/17 11:00 10/13/17 12:00 Temperature 98.5 F Pulse Rate 80 88 90 Respiratory Rate 18 Blood Pressure 112/62 Pulse Oximetry 98 10/13/17 13:00 10/13/17 14:00 10/13/17 15:00 Temperature 98.7 F Pulse Rate 92 H 98 H 92 H Respiratory Rate 18 Blood Pressure 124/78 Pulse Oximetry 97 Intake & Output 10/12/17 10/13/17 10/13/17 18:59 06:59 18:59 Intake Total 1425 / 1425 910 / 910 200 / 200 Output Total 1750 / 1750 950 / 950 Balance -325 / -325 -40 / -40 200 / 200 Weight 86.7 kg Intake: IV 450 / 450 450 / 450 200 / 200 Heparin/D5W 25,000 U/250 mL 25, 250 / 250 250 / 250 000 unit In 250 ml @ Per Protocol IV.CONT TITRATE PRN Rx #:[id number] Prostaphlin Inj 2 GM In NS Inj 200 / 200 200 / 200 200 / 200 100 ML @ 200 mls/hr IV.SIG Q4H [facility] Rx#:[id number] Oral 975 / 975 460 / 460 Output: Urine 1750 / 1750 950 / 950 Other: Date of Last Bowel Movement 10/11/17 Narrative: Subjective Interval history: Patient is in bed. Denies any chest pain at this time. However he has shortness of breath and palpitations returned chest pain with exertion. No lower extremity edema. No nausea vomiting eating fairly well Physical Exam GENERAL: 57-year-old male, well-developed, well-nourished, in no acute distress. CARDIAC: Regular rhythm, regular rate. No MRG LUNGS: Clear to auscultation bilaterally. No wheeze, rhonchi or rales. ABDOMEN: Bowel sounds present. No distention. EXTREMITIES: No edema. Bandage on right foot, CDI. NEUROLOGY: Awake and alert. Cranial nerves II through XII grossly intact. Muscle strength 5/5 in upper and lower extremities bilaterally. Assessment and Plan Non-ST elevated myocardial infarction Systolic CHF with severely reduced EF of 25-30% -Patient does have increased risk factors to include age, male, hypertension, hyperlipidemia, coronary artery disease, cardiomyopathy -Patient did have serial cardiac enzymes performed which did show a significant elevation up to 7.05 now going down to 2.63 -EKG does show acute changes with inverted T waves in inferior leads and ST depressions in the lateral leads -Patient is Coreg, statin, will start aspirin, nitroglycerin as needed -Cardiology has been consulted and says he is not a candidate for cardiac catheterization. They recommend palliative care or referral for heart transplant work-up. -Continue oxygen -Continue monitor telemetry -Morphine for pain control -CARA - tentative scheduled for 10/14/17 due to possibility of icd sbe Bacteremia -High-grade MSSA infection from PICC line. Repeat cultures also positive. -PICC line has been removed. -Infectious disease consulted. Continue antibiotics. Consider CARA. Sepsis, resolved -Patient did meet criteria on presentation with leukocytosis, lactic acidosis, source of infection -Patient was started on empiric antibiotics include vancomycin, Zosyn -Patient was pancultured and found to have bacteremia as above Anxiety The pt has episodes of shaking and respiratory distress that may be s/t anxiety. - Ativan as needed. Diabetic ketoacidosis, uncontrolled diabetes, improved -Status post insulin drip -Hemoglobin A1c 8.2 -Continue sliding scale insulin Metabolic/toxic encephalopathy, likely secondary to infection, diabetic ketoacidosis, resolved -Continue monitor neuro checks Lactic acid acidosis, resolved -Multifactorial with diabetic ketoacidosis and sepsis Acute renal failure superimposed on chronic kidney disease stage II, improved -BRIANA inhibitor has been held -Avoid nephrotoxins Muscle spasm the back. Start Flexeril DVT prevention -Patient is on heparin IV Discussed with the patient, nurse Per Dr. Henao patient needs a heart transplant. Case management to be consulted Also palliative care consulted for goals of care CARA - tentative scheduled for 10/14/17 due to possibility of icd sbe Results - Labs CBC & Chem 7: 10/10/17 06:50 10/10/17 06:50 Laboratory Results - last 24 hr 10/12/17 10/12/17 10/12/17 15:19 17:05 21:39 APTT 39.5 H POC Glucose 88 207 H 10/12/17 10/13/17 10/13/17 22:24 05:20 07:49 APTT 42.5 H 43.2 H POC Glucose 182 H 10/13/17 11:59 APTT POC Glucose 251 H Microbiology 10/11/17 02:20 Blood - Peripheral Aerobic Blood Culture - Preliminary No growth in 2 days 10/11/17 02:20 Blood - Peripheral Anaerobic Blood Culture - Preliminary No growth in 2 days 10/11/17 02:25 Blood - Peripheral Aerobic Blood Culture - Preliminary No growth in 2 days 10/11/17 02:25 Blood - Peripheral Anaerobic Blood Culture - Preliminary No growth in 2 days - Procedures Awaiting echocardiogram
[2017-10-13] MEDS: SODIUM CHLOR 0.9% IV.SIG SCH (22:00)
[2017-10-13] MEDS: OXACILLIN IV.SIG SCH (22:00)
[2017-10-14 04:23] LABS: Baso # (Auto) 0.1 th/mm3 (0.0-0.2); Baso % (Auto) 0.8 % (0.0-2.0); Eos # (Auto) 0.2 th/mm3 (0.0-0.4); Eos % (Auto) 1.9 % (0.0-4.0); Hematocrit 34.5 % (39.0-51.0); Hemoglobin 11.8 gm/dL (13.0-17.0); Lymph # (Auto) 2.2 th/mm3 (1.0-4.8); Lymph % (Auto) 20.2 % (9.0-44.0); Mean Corpuscular HGB Conc 34.1 % (32.0-36.0); Mean Corpuscular Hemoglobin 28.4 pg (27.0-34.0); Mean Corpuscular Volume 83.4 fL (80.0-100.0); Mono # (Auto) 0.8 th/mm3 (0.0-0.9); Mono % (Auto) 7.8 % (0.0-8.0); Neut # (Auto) 7.4 th/mm3 (1.8-7.7); Neut % (Auto) 69.3 % (16.0-70.0); Platelet Count 291 th/mm3 (150-450); Red Blood Count 4.14 mil/mm3 (4.50-5.90); Red Cell Distribution Width 14.5 % (11.6-17.2); White Blood Count 10.7 th/mm3 (4.0-11.0)
[2017-10-14 04:33] LABS: Calcium 9.1 mg/dL (8.5-10.1); Carbon Dioxide 28.3 meq/L (21.0-32.0); Potassium 3.9 meq/L (3.5-5.1)
[2017-10-14] MEDS: SODIUM CHLOR 0.9% IV.SIG SCH ×6 (05:00→22:18)
[2017-10-14] MEDS: OXACILLIN IV.SIG SCH ×6 (05:00→22:18)
[2017-10-14] MEDS: Senna/Docusate Sodium 8.6/50 MG Tablet PO SCH ×2 (08:17→22:00)
[2017-10-14] MEDS: Carvedilol 6.25 MG Tablet PO SCH ×2 (08:17→22:00)
[2017-10-14] MEDS: Insulin NovoLOG Aspart Correctional Sugar Inj SQ SCH ×4 (08:18→22:01)
[2017-10-14] MEDS: Insulin Detemir Inj 1,000 UNIT/10 ML Vial SQ SCH (08:18)
[2017-10-14] MEDS: Furosemide 20 MG Tablet PO SCH (08:18)
[2017-10-14] MEDS: Heparin Drip 25,000 UNIT/250 ML BAG IV.CONT PRN (08:19)
--- NOTE | 2017-10-14 08:24 | P.PN ---
Physical Exam Vital signs: Vital Signs 10/13/17 09:00 10/13/17 10:00 10/13/17 11:00 Temperature 98.5 F Pulse Rate 78 80 88 Respiratory Rate 18 Blood Pressure 112/62 Pulse Oximetry 98 10/13/17 12:00 10/13/17 13:00 10/13/17 14:00 Temperature Pulse Rate 90 92 H 98 H Respiratory Rate Blood Pressure Pulse Oximetry 10/13/17 15:00 10/13/17 16:00 10/13/17 17:00 Temperature 98.7 F Pulse Rate 92 H 96 H 98 H Respiratory Rate 18 Blood Pressure 124/78 Pulse Oximetry 97 10/13/17 19:00 10/13/17 19:51 10/13/17 19:55 Temperature 98.2 F Pulse Rate 84 89 84 Respiratory Rate 18 16 Blood Pressure 139/76 Pulse Oximetry 98 96 10/13/17 20:00 10/13/17 21:00 10/13/17 22:00 Temperature Pulse Rate 80 78 80 Respiratory Rate Blood Pressure Pulse Oximetry 10/13/17 23:00 10/13/17 23:30 10/14/17 00:00 Temperature 98.4 F Pulse Rate 79 82 82 Respiratory Rate 19 Blood Pressure 116/66 Pulse Oximetry 98 98 10/14/17 01:00 10/14/17 02:00 10/14/17 03:00 Temperature Pulse Rate 82 78 88 Respiratory Rate Blood Pressure Pulse Oximetry 98 10/14/17 04:00 10/14/17 05:08 10/14/17 06:51 Temperature 98.4 F Pulse Rate 78 87 85 Respiratory Rate 16 Blood Pressure 123/69 Pulse Oximetry 98 Intake & Output 10/13/17 10/14/17 10/14/17 18:59 06:59 18:59 Intake Total 1625 / 1625 440 / 440 550 / 550 Output Total 1800 / 1800 1225 / 1225 Balance -175 / -175 -785 / -785 550 / 550 Weight 85.4 kg Intake: IV 650 / 650 200 / 200 550 / 550 Heparin/D5W 25,000 U/250 mL 25, 250 / 250 250 / 250 000 unit In 250 ml @ Per Protocol IV.CONT TITRATE PRN Rx #:[id number] Prostaphlin Inj 2 GM In NS Inj 100 / 100 100 / 100 100 ML @ 200 mls/hr IV.SIG Q4H [facility] Rx#:[id number] Prostaphlin Inj 2 GM In NS Inj 400 / 400 100 / 100 100 / 100 100 ML @ 200 mls/hr IV.SIG Q4H [facility] Rx#:[id number] Oral 975 / 975 240 / 240 Output: Urine 1800 / 1800 1225 / 1225 Other: Date of Last Bowel Movement 10/13/17 # Bowel Movements 1 Narrative: Subjective Interval history: Patient is in bed, appears in nad . Denies any chest pain at this time. No sob satting well on room air. No palpitations or lightheadedness. Feels very tired. No lower extremity edema. No nausea vomiting. NPO plan for CARA today Physical Exam GENERAL: 57-year-old male, well-developed, well-nourished, in no acute distress. CARDIAC: Regular rhythm, regular rate. No MRG LUNGS: Clear to auscultation bilaterally. No wheeze, rhonchi or rales. ABDOMEN: Bowel sounds present. No distention. EXTREMITIES: No edema. Bandage on right foot, CDI. NEUROLOGY: Awake and alert. Cranial nerves II through XII grossly intact. Muscle strength 5/5 in upper and lower extremities bilaterally. Assessment and Plan Non-ST elevated myocardial infarction Systolic CHF with severely reduced EF of 25-30% -Patient does have increased risk factors to include age, male, hypertension, hyperlipidemia, coronary artery disease, cardiomyopathy -Patient did have serial cardiac enzymes performed which did show a significant elevation up to 7.05 now going down to 2.63 -EKG does show acute changes with inverted T waves in inferior leads and ST depressions in the lateral leads -Patient is Coreg, statin, will start aspirin, nitroglycerin as needed -Cardiology has been consulted and says he is not a candidate for cardiac catheterization. They recommend palliative care or referral for heart transplant work-up. -Continue oxygen -Continue monitor telemetry -Morphine for pain control -NPO plan for CARA today Bacteremia -High-grade MSSA infection from PICC line. Repeat cultures also positive. -PICC line has been removed. -Infectious disease consulted. Continue antibiotics. Consider CARA. Sepsis, resolved -Patient did meet criteria on presentation with leukocytosis, lactic acidosis, source of infection -Patient was started on empiric antibiotics include vancomycin, Zosyn -Patient was pancultured and found to have bacteremia as above Anxiety The pt has episodes of shaking and respiratory distress that may be s/t anxiety. - Ativan as needed. Diabetic ketoacidosis, uncontrolled diabetes, improved -Status post insulin drip -Hemoglobin A1c 8.2 -Continue sliding scale insulin Metabolic/toxic encephalopathy, likely secondary to infection, diabetic ketoacidosis, resolved -Continue monitor neuro checks Lactic acid acidosis, resolved -Multifactorial with diabetic ketoacidosis and sepsis Acute renal failure superimposed on chronic kidney disease stage II, improved -BRIANA inhibitor has been held -Avoid nephrotoxins Muscle spasm the back. Start Flexeril DVT prevention -Patient is on heparin IV Discussed with the patient, nurse Per Dr. Henao patient needs a heart transplant. Case management to be consulted Also palliative care consulted for goals of care Plan for CARA today Results - Labs CBC & Chem 7: 10/14/17 03:34 10/14/17 03:34 Laboratory Results - last 24 hr 10/13/17 10/13/17 10/14/17 11:59 22:03 03:34 WBC RBC Hgb Hct MCV MCH MCHC RDW Plt Count MPV Neut % (Auto) Lymph % (Auto) [place] % (Auto) Eos % (Auto) Baso % (Auto) Neut # (Auto) Lymph # (Auto) [place] # (Auto) Eos # (Auto) Baso # (Auto) WBC Differential Differential Comment APTT 49.9 H Sodium Potassium Chloride Carbon Dioxide Anion Gap BUN Creatinine Estimated GFR POC Glucose 251 H 296 H Random Glucose Calcium 10/14/17 10/14/17 03:34 03:34 WBC 10.7 RBC 4.14 L Hgb 11.8 L Hct 34.5 L MCV 83.4 MCH 28.4 MCHC 34.1 RDW 14.5 Plt Count 291 D MPV 8.0 Neut % (Auto) 69.3 Lymph % (Auto) 20.2 [place] % (Auto) 7.8 Eos % (Auto) 1.9 Baso % (Auto) 0.8 Neut # (Auto) 7.4 Lymph # (Auto) 2.2 [place] # (Auto) 0.8 Eos # (Auto) 0.2 Baso # (Auto) 0.1 WBC Differential . Differential Comment Auto diff final APTT Sodium 139 Potassium 3.9 Chloride 104 Carbon Dioxide 28.3 Anion Gap 7 BUN 15 Creatinine 0.94 Estimated GFR 82 L POC Glucose Random Glucose 173 H Calcium 9.1 Microbiology 10/11/17 02:20 Blood - Peripheral Aerobic Blood Culture - Preliminary No growth in 2 days 10/11/17 02:20 Blood - Peripheral Anaerobic Blood Culture - Preliminary No growth in 2 days 10/11/17 02:25 Blood - Peripheral Aerobic Blood Culture - Preliminary No growth in 2 days 10/11/17 02:25 Blood - Peripheral Anaerobic Blood Culture - Preliminary No growth in 2 days - Procedures Awaiting echocardiogram
[2017-10-14] MEDS: Polyethylene Glycol 3350 17 GM Packet PO SCH (08:54)
--- NOTE | 2017-10-14 11:33 | P.CONPAL ---
Consult Service: Palliative Care Requesting Physician: Garrett Henao Reason for Consult: a. To assist with evaluation and management of symptoms including: Chest pain, weakness b. To assist medical decision maker(s) with: better understanding of current medical conditions; weighing benefits/burdens of medical treatment options; making medical treatment decisions. Primary Care Provider: Michael Jacques DO History of Present Illness History of Present Illness: This is a 57-year-old male with a past medical history of coronary artery disease with AK, status post CABG, chronic systolic heart failure with EF 25-30% status post placement of [place] single-chamber ICD, moderate mitral regurgitation, moderate to severe tricuspid regurgitation, peripheral artery disease, hyperlipidemia, COPD, pulmonary hypertension, diabetes mellitus status post amputated toe, positive hep C antibody and chronic back pain status post previous back surgery who presented to the emergency room 10/06/2017 with a complaint of generalized weakness and fatigue with intermittent chest pain. He had a sudden onset of substernal chest pressure, constant, nonradiating of moderate to severe intensity decreased but not relieved with nitroglycerin which occurred at rest and associated with dyspnea. He also complains of some nausea during that episode but denies chills, fever, vomiting or diarrhea. His last cardiac catheterization done 06/13/2017 revealed severe three-vessel coronary artery disease in a right dominant system, not amenable to revascularization, with widely patent left internal mammary artery graft to the LAD, cardiomyopathy with EF of 25-30%, moderate to severely elevated right heart pressures. LAD was occluded at the first diagonal artery, first diagonal was subtotally occluded in the ostial proximal segment with BRAYAN II-III flow into the vessel. This vessel was also 1 mm in diameter with a 95% proximal mid segment stenosis. At that point the vessel bifurcated with the more medial branch subtotally occluded, approximately 0.5 mm vessel diameter. The more lateral of the branches again a small 0.25-0.5 mm vessel, subtotally occluded in the mid segment. LAD was relatively small, approximately 1 mm in diameter with sequential 70-80% stenoses just beyond the graft insertion site and then in the mid to distal LAD and the distal LAD. Left main coronary artery with ostial 50-60% stenosis. Left circumflex subtotally occluded after the second obtuse marginal vessel with sequential subtotal occlusions in the mid to distal AV groove supplying a very small 0.5 mm distance posterior lateral artery. First obtuse marginal vessel 1 mm with at least moderate disease in the proximal mid segment 50-60%. Second obtuse marginal 1.5-2 mm diameter occluded in the mid segment. Left to right collaterals to a very small mid to distal right PDA, estimated at 0.5 mm in the diameter, relatively short of the PDA, approximately 25-30 mm with the point of occlusion in the more mid segment of the PDA. He had previously been referred to [facility] for a transplant evaluation , as cardiovascular surgery felt he was not a surgical candidate, however due to his disability he had lost his insurance and is pending application for Medicaid and disability, limiting his treatment options. On admission he was found to be mildly tachycardic with a heart rate of 111, tachypneic with a respiratory rate of 24 and normotensive with a blood pressure of 100/59. He had recently completed a course of IV antibiotics for osteomyelitis. His laboratory values were significant for WBC 13.0, BUN 30, creatinine 1.38, blood glucose 464, INR 1.4 and troponin I 0.86. EKG showed nonspecific ST-T changes. Patient has been off his apixaban because he is unable to afford $550 a month for his medication. Lactic acid was 6.4. He received a liter of crystalloid resuscitation in the ED. He was started on an insulin and heparin drip. On admission infectious disease was consulted as blood cultures drawn on admission returned positive for MSSA. ID is managing antibiotics and has requested a transesophageal echocardiogram due to recurrent infection despite just having completed a course of IV antibiotics and the presence of an AICD, which is pending. . Function/Cognitive Trajectory: He is status post amputation of the right second toe secondary to gangrene and ostial mild. He required IV antibiotics post surgery. When seen on his previous admission he was able to do 5-10 minutes of activity prior to becoming severely dyspneic, limiting his activity sharply. Since that time secondary to surgery, IV antibiotics, continued pain and dyspnea, his functional status has continued to decline and become more sedentary. . 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 - Medical History Medical History: Medical History (Last Reviewed 10/11/17 @ 08:21 by Maurizio Gaspar, VIVIAN) Amputated toe CHF (congestive heart failure) COPD (chronic obstructive pulmonary disease) Coronary artery disease Diabetes mellitus Essential hypertension Hepatitis C antibody positive in blood Hyperlipidemia Myocardial infarction Osteomyelitis of toe Peripheral arterial disease 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 - Surgical History Surgical History: Surgical History (Last Reviewed 10/11/17 @ 08:21 by Maurizio Gaspar, PT) AICD (automatic cardioverter/defibrillator) present History of appendectomy History of cardiac cath Previous back surgery S/P CABG x 3 - Family History Family History: Family History (Last Updated 10/06/17 @ 11:29 by Ney Rios MD) Mother Lung cancer Father CVA (cerebral vascular accident) - Tobacco History Second Hand Smoke Exposure: Yes Tobacco Use In Past 30 Days: No Smoking Status: Former smoker Tobacco Type: Cigarettes Years Smoked: 40 - Alcohol History How Often Do You Have a Drink Containing Alcohol: 2 to 4 times a month - Substance Use History Substance History: No History of Abuse - Travel History History of Recent Travel: No Recent Travel in the [place] Within the Last 8 Weeks: No Recent Travel Out of the Country Within the Last 8 Weeks: No - Immunization History Tetanus Immunization: >5 Years Hx Influenza Vaccine This Season: No Medications and Allergies Active Medications: Active Medications Acetaminophen (Tylenol) 650 mg PO Q6H PRN PRN Reason: PAIN 1-10 AND/OR FEVER >101F Hydrocodone Bitart/Acetaminophen (Carson 5/325) 1 tab PO Q4H PRN PRN Reason: PAIN SCALE 1 TO 5 Last Admin: 10/08/17 21:04 Dose: 1 tab Al Hydroxide/Mg Hydroxide (Milk Of Unruly Mccoy) 30 ml PO Q12H PRN PRN Reason: Mild Constipation Albuterol (Albuterol Neb (Prn)) 2.5 mg NEB Q2HR NEB PRN PRN Reason: SHORTNESS OF BREATH/WHEEZING Last Admin: 10/13/17 19:50 Dose: 2.5 mg Artificial Tears (Genteal Severe Dry Eye Relief 0.3% Opth Gel) 1 drops EACH EYE HS [facility] Last Admin: 10/13/17 22:08 Dose: Not Given Aspirin (Ecotrin) 325 mg PO DAILY [facility] Last Admin: 10/14/17 08:18 Dose: 325 mg Atorvastatin Calcium (Lipitor) 40 mg PO DAILY [facility] Last Admin: 10/14/17 08:18 Dose: 40 mg Bisacodyl (Dulcolax Supp) 10 mg RECTAL DAILY PRN PRN Reason: SEVERE CONSITIPATION Carvedilol (Coreg) 6.25 mg PO BID [facility] Last Admin: 10/14/17 08:17 Dose: 6.25 mg Cyclobenzaprine HCl (Flexeril) 5 mg PO Q8H PRN PRN Reason: muscle relaxer Last Admin: 10/11/17 18:58 Dose: 5 mg Dextrose (D50w Vial) 50 ml IV.PUSH UNSCH PRN PRN Reason: PER HYPOGLYCEMIA PROTOCOL Furosemide (Lasix) 20 mg PO DAILY [facility] Last Admin: 10/14/17 08:18 Dose: 20 mg Glucagon (Glucagon Inj) 1 mg OTHER PRN PRN PRN Reason: for Hypoglycemia Protocol Heparin Sodium/Dextrose (Heparin/D5w 25,000 U/250 Ml) 25,000 unit in 250 mls @ 0 mls/hr IV.CONT TITRATE PRN; Protocol PRN Reason: Per Protocol Last Admin: 10/14/17 08:19 Dose: 1,800 units/hr, 18 mls/hr Sodium Phosphate 30 mmol/ (Sodium Chloride) 260 mls @ 42 mls/hr IV.SIG UNSCH PRN PRN Reason: For Phosphorus < 2.5 mg/dL Oxacillin Sodium 2 gm/ Sodium (Chloride) 100 mls @ 200 mls/hr IV.SIG Q4H [facility] Last Infusion: 10/14/17 10:39 Dose: Infused Insulin Aspart (Novolog Insulin Correctional Sugar Inj) 0 unit SQ ACHS [facility]; Protocol Last Admin: 10/14/17 08:18 Dose: Not Given Insulin Detemir (Levemir Inj) 10 unit SQ DAILY [facility] Last Admin: 10/14/17 08:18 Dose: Not Given Lactulose (Lactulose Liq) 30 ml PO DAILY PRN PRN Reason: SEVERE CONSITIPATION Last Admin: 10/08/17 17:04 Dose: 30 ml Lorazepam (Ativan) 1 mg PO Q8H PRN PRN Reason: ANXIETY Last Admin: 10/13/17 22:17 Dose: 1 mg Magnesium Oxide (Mag-Ox) 800 mg PO UNSCH PRN PRN Reason: For Magnesium 1.2 - 1.6 mg/dL Miscellaneous (Pill Splitter) 1 each OTHER UNSCH [facility] Morphine Sulfate (Morphine Inj) 2 mg IV.PUSH Q2H PRN PRN Reason: PAIN SCALE 6 TO 10 Last Admin: 10/11/17 04:30 Dose: 2 mg Nitroglycerin (Nitrostat Sl) 0.4 mg SL Q5M PRN PRN Reason: CHEST PAIN Ondansetron HCl (Zofran Inj) 4 mg IV.PUSH Q6H PRN PRN Reason: NAUSEA OR VOMITING Last Admin: 10/10/17 03:26 Dose: 4 mg Pantoprazole Sodium (Protonix) 40 mg PO DAILY [facility] Last Admin: 10/14/17 08:18 Dose: 40 mg Polyethylene Glycol (Miralax) 17 gm PO DAILY [facility] Last Admin: 10/14/17 08:54 Dose: 17 gm Senna/Docusate Sodium (Zenaida-Colace) 1 tab PO BID [facility] Last Admin: 10/14/17 08:17 Dose: 1 tab Sennosides (Senokot) 17.2 mg PO Q12H PRN PRN Reason: Moderate Constipation Sodium Chloride (Ns Flush) 2 ml IV.FLUSH BID [facility] Last Admin: 10/14/17 08:54 Dose: 2 ml Sodium Chloride (Ns Flush) 2 ml IV.FLUSH PRN PRN PRN Reason: FLUSH AFTER USING IV ACCESS Allergies Allergy/AdvReac Type Severity Reaction Status Date / Time potassium iodide Allergy Severe Swelling Verified 10/06/17 09:36 povidone-iodine Allergy Severe Swelling Verified 10/06/17 09:36 shellfish derived Allergy Severe Swelling Verified 10/06/17 09:36 sodium iodide Allergy Severe Swelling Verified 10/06/17 09:36 sodium iodide Allergy Severe Swelling Verified 10/06/17 09:36 Home Medications Medication Instructions Recorded Confirmed Type atorvastatin 40 mg PO DAILY 10/06/17 10/06/17 History carvedilol 6.25 mg PO BID 10/06/17 10/06/17 History glyburide 2.5 mg PO BID 10/06/17 10/06/17 History lisinopril 20 mg PO DAILY 10/06/17 10/06/17 History magnesium oxide 400 mg PO BID 10/06/17 10/06/17 History metformin 850 mg PO TID 10/06/17 10/06/17 History nitroglycerin [Nitrostat] 0.4 mg SUBLINGUAL Q5-15M PRN 10/06/17 10/06/17 History pravastatin 40 mg PO DAILY 10/06/17 10/06/17 History spironolactone 50 mg PO DAILY 10/06/17 10/06/17 History Advance Directives Living Will: No Healthcare Surrogate: Yes Health Care Surrogate Name and Number: Lisseth Drake Power of Chief Dog License Inspector: No Power of Chief Dog License Inspector Relationship to Patient: Friend(s) Physical Exam Vital Signs: Vital Signs - 24 hr 10/13/17 11:00 10/13/17 12:00 10/13/17 13:00 Temperature 98.5 F Pulse Rate 88 90 92 H Respiratory Rate 18 Blood Pressure 112/62 Pulse Oximetry 98 10/13/17 14:00 10/13/17 15:00 10/13/17 16:00 Temperature 98.7 F Pulse Rate 98 H 92 H 96 H Respiratory Rate 18 Blood Pressure 124/78 Pulse Oximetry 97 10/13/17 17:00 10/13/17 19:00 10/13/17 19:51 Temperature Pulse Rate 98 H 84 89 Respiratory Rate 18 Blood Pressure Pulse Oximetry 98 10/13/17 19:55 10/13/17 20:00 10/13/17 21:00 Temperature 98.2 F Pulse Rate 84 80 78 Respiratory Rate 16 Blood Pressure 139/76 Pulse Oximetry 96 10/13/17 22:00 10/13/17 23:00 10/13/17 23:30 Temperature 98.4 F Pulse Rate 80 79 82 Respiratory Rate 19 Blood Pressure 116/66 Pulse Oximetry 98 10/14/17 00:00 10/14/17 01:00 10/14/17 02:00 Temperature Pulse Rate 82 82 78 Respiratory Rate Blood Pressure Pulse Oximetry 98 10/14/17 03:00 10/14/17 04:00 10/14/17 05:08 Temperature 98.4 F Pulse Rate 88 78 87 Respiratory Rate 16 Blood Pressure 123/69 Pulse Oximetry 98 98 10/14/17 06:51 10/14/17 07:00 10/14/17 08:00 Temperature 98.1 F Pulse Rate 85 81 76 Respiratory Rate 16 Blood Pressure 120/66 Pulse Oximetry 95 10/14/17 09:00 10/14/17 09:46 10/14/17 10:44 Temperature 98.0 F Pulse Rate 77 77 85 Respiratory Rate 16 Blood Pressure 105/56 L Pulse Oximetry 96 I&O: Intake & Output 10/12/17 10/13/17 10/14/17 10/15/17 06:59 06:59 06:59 06:59 Intake Total 2049 / 2049 2335 / 2335 2065 / 2065 650 / 650 Output Total 3400 / 3400 2700 / 2700 3025 / 3025 Balance -1350 / -1350 -365 / -365 -960 / -960 650 / 650 Weight 196 lb 3.382 oz 191 lb 2.252 oz 188 lb 4.396 oz Physical Exam: CONSTITUTIONAL/GENERAL: This is an adequately nourished patient, in no apparent distress. TUBES/LINES/DRAINS: SKIN: No jaundice, rashes, or lesions. Ecchymoses on upper extremities. No wounds seen anteriorly. Skin temperature appropriate. Not diaphoretic. HEAD: Atraumatic. Normocephalic. EYES: Pupils equal and round and reactive. Extraocular motions intact. No scleral icterus. No injection or drainage. Fundi not examined. ENT: Hearing grossly normal. Nose without bleeding or purulent drainage. Throat without visible erythema, exudates, masses, or lesions. NECK: Trachea midline. Supple, nontender. No palpable thyroid enlargement or nodularity. CARDIOVASCULAR: S1, S2, Regular rate and rhythm without gallops, or rubs. 1/6 ROMMEL. No JVD. Peripheral pulses symmetric. RESPIRATORY/CHEST: Symmetric, unlabored respirations. Clear to auscultation. Breath sounds equal bilaterally. No wheezes, rales, or rhonchi. GASTROINTESTINAL: Abdomen soft, non-tender, nondistended. No hepato-splenomegaly , or palpable masses. No guarding. Bowel sounds present. GENITOURINARY: Without palpable bladder distension. MUSCULOSKELETAL: Extremities without clubbing, cyanosis, or edema.Right second toe amputation incision healing without erythema or drainage. No joint tenderness or effusion noted. No calf tenderness. No mottling or clubbing. LYMPHATICS: No palpable cervical or supraclavicular adenopathy. NEUROLOGICAL: Awake and alert. Motor and sensory grossly within normal limits. Follows commands. Cognitively sharp. Moves all extremities. PSYCHIATRIC: No obvious anxiety/depression. no apparent hallucinations or other psychotic thought process. . Diagnostic Tests Laboratory: Laboratory Results - last 72 hr 10/11/17 10/11/17 10/11/17 12:34 18:23 18:28 WBC RBC Hgb Hct MCV MCH MCHC RDW Plt Count MPV Neut % (Auto) Lymph % (Auto) Weakley % (Auto) Eos % (Auto) Baso % (Auto) Neut # (Auto) Lymph # (Auto) Weakley # (Auto) Eos # (Auto) Baso # (Auto) WBC Differential Differential Comment APTT 38.9 H Sodium Potassium Chloride Carbon Dioxide Anion Gap BUN Creatinine Estimated GFR POC Glucose 168 H 199 H Random Glucose Calcium 10/11/17 10/12/17 10/12/17 19:52 00:44 08:16 WBC RBC Hgb Hct MCV MCH MCHC RDW Plt Count MPV Neut % (Auto) Lymph % (Auto) Weakley % (Auto) Eos % (Auto) Baso % (Auto) Neut # (Auto) Lymph # (Auto) Weakley # (Auto) Eos # (Auto) Baso # (Auto) WBC Differential Differential Comment APTT 40.1 H Sodium Potassium Chloride Carbon Dioxide Anion Gap BUN Creatinine Estimated GFR POC Glucose 244 H 155 H Random Glucose Calcium 10/12/17 10/12/17 10/12/17 08:32 13:05 15:19 WBC RBC Hgb Hct MCV MCH MCHC RDW Plt Count MPV Neut % (Auto) Lymph % (Auto) Weakley % (Auto) Eos % (Auto) Baso % (Auto) Neut # (Auto) Lymph # (Auto) Weakley # (Auto) Eos # (Auto) Baso # (Auto) WBC Differential Differential Comment APTT 40.4 H 39.5 H Sodium Potassium Chloride Carbon Dioxide Anion Gap BUN Creatinine Estimated GFR POC Glucose 304 H Random Glucose Calcium 10/12/17 10/12/17 10/12/17 17:05 21:39 22:24 WBC RBC Hgb Hct MCV MCH MCHC RDW Plt Count MPV Neut % (Auto) Lymph % (Auto) Weakley % (Auto) Eos % (Auto) Baso % (Auto) Neut # (Auto) Lymph # (Auto) Weakley # (Auto) Eos # (Auto) Baso # (Auto) WBC Differential Differential Comment APTT 42.5 H Sodium Potassium Chloride Carbon Dioxide Anion Gap BUN Creatinine Estimated GFR POC Glucose 88 207 H Random Glucose Calcium 10/13/17 10/13/17 10/13/17 05:20 07:49 11:59 WBC RBC Hgb Hct MCV MCH MCHC RDW Plt Count MPV Neut % (Auto) Lymph % (Auto) Weakley % (Auto) Eos % (Auto) Baso % (Auto) Neut # (Auto) Lymph # (Auto) Weakley # (Auto) Eos # (Auto) Baso # (Auto) WBC Differential Differential Comment APTT 43.2 H Sodium Potassium Chloride Carbon Dioxide Anion Gap BUN Creatinine Estimated GFR POC Glucose 182 H 251 H Random Glucose Calcium 10/13/17 10/14/17 10/14/17 22:03 03:34 03:34 WBC 10.7 RBC 4.14 L Hgb 11.8 L Hct 34.5 L MCV 83.4 MCH 28.4 MCHC 34.1 RDW 14.5 Plt Count 291 D MPV 8.0 Neut % (Auto) 69.3 Lymph % (Auto) 20.2 Weakley % (Auto) 7.8 Eos % (Auto) 1.9 Baso % (Auto) 0.8 Neut # (Auto) 7.4 Lymph # (Auto) 2.2 Weakley # (Auto) 0.8 Eos # (Auto) 0.2 Baso # (Auto) 0.1 WBC Differential . Differential Comment Auto diff final APTT 49.9 H Sodium Potassium Chloride Carbon Dioxide Anion Gap BUN Creatinine Estimated GFR POC Glucose 296 H Random Glucose Calcium 10/14/17 10/14/17 03:34 08:13 WBC RBC Hgb Hct MCV MCH MCHC RDW Plt Count MPV Neut % (Auto) Lymph % (Auto) Weakley % (Auto) Eos % (Auto) Baso % (Auto) Neut # (Auto) Lymph # (Auto) Weakley # (Auto) Eos # (Auto) Baso # (Auto) WBC Differential Differential Comment APTT Sodium 139 Potassium 3.9 Chloride 104 Carbon Dioxide 28.3 Anion Gap 7 BUN 15 Creatinine 0.94 Estimated GFR 82 L POC Glucose 194 H Random Glucose 173 H Calcium 9.1 Result Diagrams: 10/14/17 03:34 10/14/17 03:34 Microbiology: Microbiology 10/11/17 02:20 Aerobic Blood Culture - Preliminary Blood - Peripheral No growth in 2 days Anaerobic Blood Culture - Preliminary No growth in 2 days 10/11/17 02:25 Aerobic Blood Culture - Preliminary Blood - Peripheral No growth in 2 days Anaerobic Blood Culture - Preliminary No growth in 2 days 10/07/17 20:07 Aerobic Blood Culture - Final Blood - Peripheral Staphylococcus aureus Anaerobic Blood Culture - Final No growth in 5 days 10/07/17 17:53 Aerobic Blood Culture - Final Blood - Peripheral Staphylococcus aureus Anaerobic Blood Culture - Final Staphylococcus aureus Imaging: Abdomen/Pelvis CT 10/06/17 00:00 CONCLUSION: 1. No acute abnormality seen. 2. Increased density at the posterior lower lobes likely related to mild atelectasis. 3. Scattered atherosclerotic calcifications throughout the arterial system. 4. Degenerative and postsurgical change in the lumbar spine. Chest X-Ray 10/06/17 08:34 CONCLUSION: No evidence of congestive heart failure. Stable mild cardiomegaly. Otherwise negative exam. Chest X-Ray 10/09/17 09:27 CONCLUSION: 1. Cardiomegaly with new mild positive fluid balance. Foot X-Ray 10/10/17 00:00 CONCLUSION: Status post amputation of the second toe. No acute bony abnormality or destructive changes. Procedures: 10/14/17 - CARA . Patient/Family Conference Present at Family Conference: Spoke with patient at bedside regarding CARA findings and possible complications to include PE/embolic event/CVA. He was previously not considered a candidate for revascularization and was referred for a heart transplant evaluation, but as he has not yet been able to be approved for Medicaid and has no insurance, he has not been accepted at a tertiary center at this time. Dr. Aguirre has been consulted to evaluate him for ICD extraction. . Issues Discussed: * Palliative care role, purpose, approach * Additional medical, psychosocial, and spiritual history * Patients general health, functional status, and cognitive changes in the months leading up to the current hospitalization * Patient/family understanding of the current medical problems * Patient/family understanding of prognosis * Patients goals of care as best understood from advance directives and/or conversations and/or values * Current medical treatment options and benefits/burdens of those options * Likely scenarios comparing ongoing aggressive care with a transition to comfort measures only * Questions answered to the best of my ability * Palliative care contact information provided Assessment and Plan Pertinent Non-Medical Issues: Psychosocial:He was born in [place] and moved to [place] before he was 8 years old. 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 He has never been and has no children. He has a significant other whom he has made a healthcare surrogate. He was in the service but did not serve during more time. Spiritual: Identifies with the Shinto david and would accept citrix administrator visits. Legal: Healthcare surrogate, identifying his girlfriend Lisseth as his primary healthcare surrogate and his sister, Michelle Ayon as his alternate. Ethical issues impacting care: None noted. . Important Contacts: Girlfriend: Lisseth Drake Sister: Michelle Ayon , . Prognosis: His prognosis is poor. He has a significantly reduced ejection fraction of 25- 30% with ischemic cardiomyopathy, moderate mitral regurgitation, moderate to severe tricuspid regurgitation, pulmonary hypertension and is not a candidate for revascularization. He has been referred to [facility] several times but declined due to no insurance coverage. This is his sixth admission to [facility] in 2018 for recurrent decline and complication. He has end- stage heart disease and would be hospice appropriate if goals were consistent. . Code Status: Full Code Plan: PLAN: Legal decision maker: He is currently capacitated for making his own decisions, however has designated his girlfriend Lisseth as his primary healthcare surrogate and his sister, Michelle, as his alternate in case he becomes incapacitated. Goals: Aggressive. CODE STATUS: FULL CODE SYMPTOMS: * Chest pain: He was admitted with chest pressure and does have a history of unstable angina, secondary to severe coronary artery disease and ischemic cardiomyopathy. He is currently receiving aspirin, atorvastatin, carvedilol, furosemide, heparin and has morphine and nitroglycerin available as needed. Last dose of morphine given on 10/11. Has received no nitroglycerin since admission. * Weakness: Multifactorial to include recent right toe surgery, positive blood cultures, sedentary behavior, activity limiting cardiovascular disease, COPD, history of smoking and progressive debility. Options for recovery are few as he is unable to perform progressive exercise due to his symptomatic limitations. 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 His quality of life continues to erode with progression of heart disease and infection. Referrals to tertiary centers for evaluation for heart transplant have thus far been declined due to lack of insurance and inability to comply with therapy secondary to financial limitations. He is at elevated risk for continued complications, recurrent readmissions and decline. He would be hospice appropriate if goals were consistent. . Palliative care will continue to follow the patient during hospital course as condition evolves, to assist patient/decision-maker with understanding of their medical conditions, weighing benefits/burdens of treatment options, for clarification of goals of treatment. Additionally will assist with any symptoms of palliative concern. . Appreciation Thank you for the opportunity to participate in the care of Stanton Estrada. Attestation Attestation: To help prompt me to consider important information that might be impacting today's encounter and assessment, information from prior notes written by myself or my colleagues may have been "brought forward" into today's note. My signature on this note, however, is an attestation that I personally performed the exam, history, and/or decision-making noted today, and, unless otherwise indicated, the interactions with patient, family, and staff as well as the review of records all occurred today. I also attest that the listed assessment and stated plan reflect my best clinical judgment today based on the combination of historical information, prior notes, and today's exam/ interactions. When time spent is documented, it refers only to time spent today by the signer, or if indicated, combined time spent today by collaborating physician/nurse practitioner. .
--- NOTE | 2017-10-14 13:28 | P.PNADD ---
Addendum to Inpatient Note Reason for Addendum: Additional Documentation Additional information: CARA with 20x28 TV veg'n aw ICD lead PLAN:needs AICD removal call placed to Dr Aguirre
--- NOTE | 2017-10-14 14:13 | P.PN ---
Physical Exam Vital signs: Vital Signs 10/13/17 15:00 10/13/17 16:00 10/13/17 17:00 Temperature 98.7 F Pulse Rate 92 H 96 H 98 H Respiratory Rate 18 Blood Pressure 124/78 Pulse Oximetry 97 10/13/17 19:00 10/13/17 19:51 10/13/17 19:55 Temperature 98.2 F Pulse Rate 84 89 84 Respiratory Rate 18 16 Blood Pressure 139/76 Pulse Oximetry 98 96 10/13/17 20:00 10/13/17 21:00 10/13/17 22:00 Temperature Pulse Rate 80 78 80 Respiratory Rate Blood Pressure Pulse Oximetry 10/13/17 23:00 10/13/17 23:30 10/14/17 00:00 Temperature 98.4 F Pulse Rate 79 82 82 Respiratory Rate 19 Blood Pressure 116/66 Pulse Oximetry 98 98 10/14/17 01:00 10/14/17 02:00 10/14/17 03:00 Temperature Pulse Rate 82 78 88 Respiratory Rate Blood Pressure Pulse Oximetry 98 10/14/17 04:00 10/14/17 05:08 10/14/17 06:51 Temperature 98.4 F Pulse Rate 78 87 85 Respiratory Rate 16 Blood Pressure 123/69 Pulse Oximetry 98 10/14/17 07:00 10/14/17 08:00 10/14/17 09:00 Temperature 98.1 F Pulse Rate 81 76 77 Respiratory Rate 16 Blood Pressure 120/66 Pulse Oximetry 95 10/14/17 09:20 10/14/17 09:46 10/14/17 10:44 Temperature 98.0 F Pulse Rate 77 85 Respiratory Rate 16 Blood Pressure 105/56 L Pulse Oximetry 94 L 96 10/14/17 12:00 Temperature Pulse Rate 75 Respiratory Rate Blood Pressure Pulse Oximetry Intake & Output 10/13/17 10/14/17 10/14/17 18:59 06:59 18:59 Intake Total 1625 / 1625 440 / 440 650 / 650 Output Total 1800 / 1800 1225 / 1225 Balance -175 / -175 -785 / -785 650 / 650 Weight 85.4 kg Intake: IV 650 / 650 200 / 200 650 / 650 Heparin/D5W 25,000 U/250 mL 25, 250 / 250 250 / 250 000 unit In 250 ml @ Per Protocol IV.CONT TITRATE PRN Rx #:[id number] Prostaphlin Inj 2 GM In NS Inj 100 / 100 200 / 200 100 ML @ 200 mls/hr IV.SIG Q4H JEFE Rx#:[id number] Prostaphlin Inj 2 GM In NS Inj 400 / 400 100 / 100 100 / 100 100 ML @ 200 mls/hr IV.SIG Q4H JEFE Rx#:[id number] Oral 975 / 975 240 / 240 Output: Urine 1800 / 1800 1225 / 1225 Other: Date of Last Bowel Movement 10/13/17 # Bowel Movements 1 Narrative: Subjective Interval history: Patient is in bed, appears in nad . Denies any chest pain at this time. No sob satting well on room air. No palpitations or lightheadedness. Feels very tired. No lower extremity edema. No nausea vomiting. Had CARA, margarita tan MV vegetation Physical Exam GENERAL: 57-year-old male, well-developed, well-nourished, in no acute distress. CARDIAC: Regular rhythm, regular rate. No MRG LUNGS: Clear to auscultation bilaterally. No wheeze, rhonchi or rales. ABDOMEN: Bowel sounds present. No distention. EXTREMITIES: No edema. Bandage on right foot, CDI. NEUROLOGY: Awake and alert. Cranial nerves II through XII grossly intact. Muscle strength 5/5 in upper and lower extremities bilaterally. Assessment and Plan Non-ST elevated myocardial infarction Systolic CHF with severely reduced EF of 25-30% -Patient does have increased risk factors to include age, male, hypertension, hyperlipidemia, coronary artery disease, cardiomyopathy -Patient did have serial cardiac enzymes performed which did show a significant elevation up to 7.05 now going down to 2.63 -EKG does show acute changes with inverted T waves in inferior leads and ST depressions in the lateral leads -Patient is Coreg, statin, will start aspirin, nitroglycerin as needed -Cardiology has been consulted and says he is not a candidate for cardiac catheterization. They recommend palliative care or referral for heart transplant work-up. -Continue oxygen -Continue monitor telemetry -Morphine for pain control -NPO plan for CARA today Bacteremia -High-grade MSSA infection from PICC line. Repeat cultures also positive. -PICC line has been removed. -Infectious disease consulted appreciate recommendations. Continue antibiotics. S/P CARA 10/14/17 Patient with MSSA high grade bactermia 2/2 PICC line Recent osteo 2 nd toe sp amputation AICD associated TV endocarditis sp AICD placement in May + CARA ( 10/14/17) with large vegetation 20x28 mm cont oxacillin per ID Dr Tinsley ID ff needs AICD removal per Id recommendations, who notified cardiology Dr Timothy KOTHARI Sepsis, resolved -Patient did meet criteria on presentation with leukocytosis, lactic acidosis, source of infection -Patient was started on empiric antibiotics include vancomycin, Zosyn, now on oxacillin as patient with MSSA bacteremia -Patient was pancultured and found to have bacteremia as above Anxiety The pt has episodes of shaking and respiratory distress that may be s/t anxiety. - Ativan as needed. Diabetic ketoacidosis, uncontrolled diabetes, improved -Status post insulin drip -Hemoglobin A1c 8.2 -Continue sliding scale insulin Metabolic/toxic encephalopathy, likely secondary to infection, diabetic ketoacidosis, resolved -Continue monitor neuro checks Lactic acid acidosis, resolved -Multifactorial with diabetic ketoacidosis and sepsis Acute renal failure superimposed on chronic kidney disease stage II, improved -BRIANA inhibitor has been held -Avoid nephrotoxins Muscle spasm the back. Start Flexeril DVT prevention -Patient is on heparin IV Discussed with the patient, nurse Per Dr. Henao patient needs a heart transplant. Case management to be consulted Also palliative care consulted for goals of care S/P CARA today Results - Labs CBC & Chem 7: 10/14/17 03:34 10/14/17 03:34 Laboratory Results - last 24 hr 10/13/17 10/14/17 10/14/17 22:03 03:34 03:34 WBC 10.7 RBC 4.14 L Hgb 11.8 L Hct 34.5 L MCV 83.4 MCH 28.4 MCHC 34.1 RDW 14.5 Plt Count 291 D MPV 8.0 Neut % (Auto) 69.3 Lymph % (Auto) 20.2 [place] % (Auto) 7.8 Eos % (Auto) 1.9 Baso % (Auto) 0.8 Neut # (Auto) 7.4 Lymph # (Auto) 2.2 [place] # (Auto) 0.8 Eos # (Auto) 0.2 Baso # (Auto) 0.1 WBC Differential . Differential Comment Auto diff final APTT 49.9 H Sodium Potassium Chloride Carbon Dioxide Anion Gap BUN Creatinine Estimated GFR POC Glucose 296 H Random Glucose Calcium 10/14/17 10/14/17 10/14/17 03:34 08:13 11:15 WBC RBC Hgb Hct MCV MCH MCHC RDW Plt Count MPV Neut % (Auto) Lymph % (Auto) [place] % (Auto) Eos % (Auto) Baso % (Auto) Neut # (Auto) Lymph # (Auto) [place] # (Auto) Eos # (Auto) Baso # (Auto) WBC Differential Differential Comment APTT Sodium 139 Potassium 3.9 Chloride 104 Carbon Dioxide 28.3 Anion Gap 7 BUN 15 Creatinine 0.94 Estimated GFR 82 L POC Glucose 194 H 224 H Random Glucose 173 H Calcium 9.1 Microbiology 10/11/17 02:20 Blood - Peripheral Aerobic Blood Culture - Preliminary No growth in 3 days 10/11/17 02:20 Blood - Peripheral Anaerobic Blood Culture - Preliminary No growth in 3 days 10/11/17 02:25 Blood - Peripheral Aerobic Blood Culture - Preliminary No growth in 3 days 10/11/17 02:25 Blood - Peripheral Anaerobic Blood Culture - Preliminary No growth in 3 days - Procedures Awaiting echocardiogram
--- NOTE | 2017-10-14 15:55 | P.PNID ---
Subjective Remarks: no fever, CARA with 20x28 TV veg'n aw ICD lead Last BC NGTD @ 3 days foot xray negative KUB with mild ileus Antibiotics: oxacillin Past Medical History: R 2nd toe osteo CAD AICD Allergies/Adverse Reactions: Allergies potassium iodide Allergy (Severe, Verified 10/06/17 09:36) Swelling povidone-iodine Allergy (Severe, Verified 10/06/17 09:36) Swelling shellfish derived Allergy (Severe, Verified 10/06/17 09:36) Swelling sodium iodide Allergy (Severe, Verified 10/06/17 09:36) Swelling sodium iodide Allergy (Severe, Verified 10/06/17 09:36) Swelling Objective Vital Signs 10/13/17 16:00 10/13/17 17:00 10/13/17 19:00 Temperature Pulse Rate 96 H 98 H 84 Respiratory Rate Blood Pressure Pulse Oximetry 10/13/17 19:51 10/13/17 19:55 10/13/17 20:00 Temperature 98.2 F Pulse Rate 89 84 80 Respiratory Rate 18 16 Blood Pressure 139/76 Pulse Oximetry 98 96 10/13/17 21:00 10/13/17 22:00 10/13/17 23:00 Temperature Pulse Rate 78 80 79 Respiratory Rate Blood Pressure Pulse Oximetry 10/13/17 23:30 10/14/17 00:00 10/14/17 01:00 Temperature 98.4 F Pulse Rate 82 82 82 Respiratory Rate 19 Blood Pressure 116/66 Pulse Oximetry 98 98 10/14/17 02:00 10/14/17 03:00 10/14/17 04:00 Temperature Pulse Rate 78 88 78 Respiratory Rate Blood Pressure Pulse Oximetry 98 10/14/17 05:08 10/14/17 06:51 10/14/17 07:00 Temperature 98.4 F 98.1 F Pulse Rate 87 85 81 Respiratory Rate 16 16 Blood Pressure 123/69 120/66 Pulse Oximetry 98 95 10/14/17 08:00 10/14/17 09:00 10/14/17 09:20 Temperature Pulse Rate 76 77 Respiratory Rate Blood Pressure Pulse Oximetry 94 L 10/14/17 09:46 10/14/17 10:44 10/14/17 12:00 Temperature 98.0 F Pulse Rate 77 85 75 Respiratory Rate 16 Blood Pressure 105/56 L Pulse Oximetry 96 10/14/17 14:47 Temperature 98.1 F Pulse Rate 67 Respiratory Rate 16 Blood Pressure 122/69 Pulse Oximetry 97 Intake & Output 10/13/17 10/14/17 10/14/17 18:59 06:59 18:59 Intake Total 1625 / 1625 440 / 440 750 / 750 Output Total 1800 / 1800 1225 / 1225 Balance -175 / -175 -785 / -785 750 / 750 Weight 85.4 kg Intake: IV 650 / 650 200 / 200 750 / 750 Heparin/D5W 25,000 U/250 mL 25, 250 / 250 250 / 250 000 unit In 250 ml @ Per Protocol IV.CONT TITRATE PRN Rx #:[id number] Prostaphlin Inj 2 GM In NS Inj 100 / 100 300 / 300 100 ML @ 200 mls/hr IV.SIG Q4H JEFE Rx#:[id number] Prostaphlin Inj 2 GM In NS Inj 400 / 400 100 / 100 100 / 100 100 ML @ 200 mls/hr IV.SIG Q4H JEFE Rx#:[id number] Oral 975 / 975 240 / 240 Output: Urine 1800 / 1800 1225 / 1225 Other: Date of Last Bowel Movement 10/13/17 # Bowel Movements 1 10/11/17 02:20 Blood - Peripheral Aerobic Blood Culture - Preliminary No growth in 3 days 10/11/17 02:20 Blood - Peripheral Anaerobic Blood Culture - Preliminary No growth in 3 days 10/11/17 02:25 Blood - Peripheral Aerobic Blood Culture - Preliminary No growth in 3 days 10/11/17 02:25 Blood - Peripheral Anaerobic Blood Culture - Preliminary No growth in 3 days 10/07/17 20:07 Blood - Peripheral Aerobic Blood Culture - Final Staphylococcus aureus 10/07/17 20:07 Blood - Peripheral Anaerobic Blood Culture - Final No growth in 5 days 10/07/17 17:53 Blood - Peripheral Aerobic Blood Culture - Final Staphylococcus aureus 10/07/17 17:53 Blood - Peripheral Anaerobic Blood Culture - Final Staphylococcus aureus Lab - Hematology Results 10/14/17 03:34 WBC 10.7 RBC 4.14 L Hgb 11.8 L Hct 34.5 L MCV 83.4 MCH 28.4 MCHC 34.1 RDW 14.5 Plt Count 291 D MPV 8.0 Neut % (Auto) 69.3 Lymph % (Auto) 20.2 [place] % (Auto) 7.8 Eos % (Auto) 1.9 Baso % (Auto) 0.8 Neut # (Auto) 7.4 Lymph # (Auto) 2.2 [place] # (Auto) 0.8 Eos # (Auto) 0.2 Baso # (Auto) 0.1 WBC Differential . Differential Comment Auto diff final Lab - Chemistry Results 10/12/17 10/12/17 10/13/17 17:05 21:39 07:49 Sodium Potassium Chloride Carbon Dioxide Anion Gap BUN Creatinine Estimated GFR POC Glucose 88 207 H 182 H Random Glucose Calcium 10/13/17 10/13/17 10/14/17 11:59 22:03 03:34 Sodium 139 Potassium 3.9 Chloride 104 Carbon Dioxide 28.3 Anion Gap 7 BUN 15 Creatinine 0.94 Estimated GFR 82 L POC Glucose 251 H 296 H Random Glucose 173 H Calcium 9.1 10/14/17 10/14/17 08:13 11:15 Sodium Potassium Chloride Carbon Dioxide Anion Gap BUN Creatinine Estimated GFR POC Glucose 194 H 224 H Random Glucose Calcium Imaging: ITS Impressions Abdomen/Pelvis CT 10/06/17 00:00 CONCLUSION: 1. No acute abnormality seen. 2. Increased density at the posterior lower lobes likely related to mild atelectasis. 3. Scattered atherosclerotic calcifications throughout the arterial system. 4. Degenerative and postsurgical change in the lumbar spine. Chest X-Ray 10/09/17 09:27 CONCLUSION: 1. Cardiomegaly with new mild positive fluid balance. Foot X-Ray 10/10/17 00:00 CONCLUSION: Status post amputation of the second toe. No acute bony abnormality or destructive changes. Physical Exam: GENERAL: NAD SKIN: Warm and dry. HEAD: Atraumatic. Normocephalic. EYES: Pupils equal and round. No scleral icterus. No injection or drainage. ENT: No nasal bleeding or discharge. Mucous membranes pink and moist. NECK: Trachea midline. No JVD. CARDIOVASCULAR: Regular rate and rhythm. AICD in place, no skin changes, well healed incision somewhat puffy RESPIRATORY: No accessory muscle use. Clear to auscultation. Breath sounds equal bilaterally. GASTROINTESTINAL: Abdomen soft, non-tender, nondistended. Hepatic and splenic margins not palpable. MUSCULOSKELETAL: Extremities without clubbing, cyanosis, or edema. No obvious deformities. dressong in p;livia R foot s/p 2nd R toe amputation NEUROLOGICAL: Awake and alert. No obvious cranial nerve deficits. Motor grossly within normal limits. Five out of 5 muscle strength in the arms and legs. Normal speech. PSYCHIATRIC: Appropriate mood and affect; insight and judgment normal. Assessment and Plan (1) Staphylococcal sepsis Status: Acute Code(s): A41.2 - Sepsis due to unspecified staphylococcus (2) Staphylococcus aureus bacteremia with sepsis Status: Acute Code(s): A41.01 - Sepsis due to Methicillin susceptible Staphylococcus aureus - Plan MSSAhigh grade bactermia 2/2 PICC line Recent osteo 2 nd toe sp amputaiton AICD associated TV endocarditis sp AICD placement in May + CARA with veg'n 20x28 mm cont oxacillin - monitoring parameters: CBC, CMP at least weekly needs AICD removal paola Aguirer
[2017-10-14] MEDS: Chlorhexidine Gluconate 2% 1 Pack (2 Cloths) TOPICAL SCH (16:51)
[2017-10-14] MEDS: Hypromellose 0.3% Opth Gel 10 GM Bottle EACH EYE SCH (22:18)
[2017-10-14] MEDS: LORazepam 1 MG Tablet PO PRN (22:18)
[2017-10-15] MEDS: OXACILLIN IV.SIG SCH ×6 (01:41→22:45)
[2017-10-15] MEDS: SODIUM CHLOR 0.9% IV.SIG SCH ×6 (01:41→22:45)
[2017-10-15] MEDS: Heparin Drip 25,000 UNIT/250 ML BAG IV.CONT PRN ×2 (04:45→16:35)
[2017-10-15] MEDS: Insulin NovoLOG Aspart Correctional Sugar Inj SQ SCH ×4 (08:41→21:19)
[2017-10-15] MEDS: Insulin Detemir Inj 1,000 UNIT/10 ML Vial SQ SCH (08:41)
[2017-10-15] MEDS: Polyethylene Glycol 3350 17 GM Packet PO SCH (08:42)
[2017-10-15] MEDS: Carvedilol 6.25 MG Tablet PO SCH ×2 (08:42→21:18)
[2017-10-15] MEDS: Furosemide 20 MG Tablet PO SCH (08:42)
[2017-10-15] MEDS: Senna/Docusate Sodium 8.6/50 MG Tablet PO SCH ×2 (08:43→21:18)
--- NOTE | 2017-10-15 09:45 | MB ---
cc: Tyesha Aguirre MD,Elicia Henao,Natalee Dao MD DATE: 10/14/2017 PROGRESS NOTE: 10/14/2017 REQUESTING PHYSICIAN: I was called by Dr. Natalee Henao to evaluate Mr. Jimenez. HISTORY OF PRESENT ILLNESS: The patient is a 57-year-old gentleman with coronary artery disease, congestive heart failure, cardiomyopathy, had a previous defibrillator implanted over 2 months ago. The gentleman has some osteomyelitis and also diabetic ketoacidosis. He was evaluated in hospitalization by Infectious Disease. Subsequently, continued bacteremia. A CARA was performed and was found vegetation around the lead. The chart was reviewed. The patient was evaluated. MEDICATIONS: The gentleman currently is on acetaminophen and [place], aspirin, Lipitor, Coreg, Lasix, insulin, morphine, Zofran, Protonix and antibiotics. PHYSICAL EXAMINATION: GENERAL: Alert, fully oriented. VITAL SIGNS: Blood pressure 119/69, pulse 85, respiratory rate 18. LUNGS: Ventilated. CARDIOVASCULAR: S1, S2. Regular. ABDOMEN: Obese. No mass or bruit. EXTREMITIES: No edema. LABORATORY DATA: Hemoglobin 11.8, white blood cell 10.7, but trending up. INR 1.1. Potassium 3.9, creatinine 0.94. ASSESSMENT AND RECOMMENDATIONS: Mr. Jimenez has osteomyelitis and diabetic ketoacidosis. Apparently, the infection went systemic, very difficult to control. Apparently, there is a possible vegetation based on Dr. Natalee Henao's account. There is some vegetation in the lead. The lead and the generator need to be removed. I had a long conversation with him. The risks, the nature and the benefits of the procedure are clearly stated to him. The risks include pneumothorax, cardiac perforation, stroke and even . The patient understood and agreed to proceed. The procedure will be done today. I will reevaluate the patient in the morning and further decision about the procedure will be taken. MD LATRICE Alegre/SB , 09:24 AM , 09:44 AM
--- NOTE | 2017-10-15 12:58 | P.PNID ---
Subjective Remarks: no fever, last blood cultures reamin negative Plan to remove AICD tomorrow and lifevest untill next AICD placement Antibiotics: oxacillin Past Medical History: R 2nd toe osteo CAD AICD Allergies/Adverse Reactions: Allergies potassium iodide Allergy (Severe, Verified 10/06/17 09:36) Swelling povidone-iodine Allergy (Severe, Verified 10/06/17 09:36) Swelling shellfish derived Allergy (Severe, Verified 10/06/17 09:36) Swelling sodium iodide Allergy (Severe, Verified 10/06/17 09:36) Swelling sodium iodide Allergy (Severe, Verified 10/06/17 09:36) Swelling Objective Vital Signs 10/14/17 14:47 10/14/17 15:32 10/14/17 16:49 Temperature 98.1 F Pulse Rate 67 73 73 Respiratory Rate 16 Blood Pressure 122/69 Pulse Oximetry 97 10/14/17 17:29 10/14/17 19:00 10/14/17 20:00 Temperature 98.7 F Pulse Rate 83 84 81 Respiratory Rate 16 Blood Pressure 135/63 Pulse Oximetry 99 10/14/17 21:00 10/14/17 22:00 10/14/17 23:00 Temperature 99.8 F H Pulse Rate 76 93 H 85 Respiratory Rate 16 Blood Pressure 119/69 Pulse Oximetry 96 10/15/17 00:00 10/15/17 01:00 10/15/17 02:00 Temperature Pulse Rate 85 79 88 Respiratory Rate Blood Pressure Pulse Oximetry 10/15/17 03:00 10/15/17 04:00 10/15/17 05:00 Temperature 100.1 F H Pulse Rate 87 79 87 Respiratory Rate 16 Blood Pressure 122/75 Pulse Oximetry 97 10/15/17 06:00 10/15/17 07:00 10/15/17 08:00 Temperature 98.7 F Pulse Rate 90 83 74 Respiratory Rate 14 Blood Pressure 119/69 Pulse Oximetry 99 10/15/17 09:00 10/15/17 10:00 10/15/17 11:00 Temperature 98.6 F Pulse Rate 75 75 78 Respiratory Rate 16 Blood Pressure 120/66 Pulse Oximetry 96 10/15/17 12:00 Temperature Pulse Rate 87 Respiratory Rate Blood Pressure Pulse Oximetry Intake & Output 10/14/17 10/15/17 10/15/17 18:59 06:59 18:59 Intake Total 1310 / 1310 1270 / 1270 100 / 100 Output Total 1025 / 1025 Balance 1310 / 1310 245 / 245 100 / 100 Weight 85 kg Intake: IV 850 / 850 550 / 550 100 / 100 Heparin/D5W 25,000 U/250 mL 25, 250 / 250 250 / 250 000 unit In 250 ml @ Per Protocol IV.CONT TITRATE PRN Rx #:[id number] Prostaphlin Inj 2 GM In NS Inj 400 / 400 300 / 300 100 / 100 100 ML @ 200 mls/hr IV.SIG Q4H JEFE Rx#:[id number] Prostaphlin Inj 2 GM In NS Inj 100 / 100 100 ML @ 200 mls/hr IV.SIG Q4H JEFE Rx#:[id number] Oral 460 / 460 720 / 720 Output: Urine 1025 / 1025 Other: # Voids 3 Date of Last Bowel Movement 10/13/17 # Bowel Movements 1 10/11/17 02:20 Blood - Peripheral Aerobic Blood Culture - Preliminary No growth in 4 days 10/11/17 02:20 Blood - Peripheral Anaerobic Blood Culture - Preliminary No growth in 4 days 10/11/17 02:25 Blood - Peripheral Aerobic Blood Culture - Preliminary No growth in 4 days 10/11/17 02:25 Blood - Peripheral Anaerobic Blood Culture - Preliminary No growth in 4 days 10/07/17 20:07 Blood - Peripheral Aerobic Blood Culture - Final Staphylococcus aureus 10/07/17 20:07 Blood - Peripheral Anaerobic Blood Culture - Final No growth in 5 days 10/07/17 17:53 Blood - Peripheral Aerobic Blood Culture - Final Staphylococcus aureus 10/07/17 17:53 Blood - Peripheral Anaerobic Blood Culture - Final Staphylococcus aureus Lab - Hematology Results 10/14/17 03:34 WBC 10.7 RBC 4.14 L Hgb 11.8 L Hct 34.5 L MCV 83.4 MCH 28.4 MCHC 34.1 RDW 14.5 Plt Count 291 D MPV 8.0 Neut % (Auto) 69.3 Lymph % (Auto) 20.2 [place] % (Auto) 7.8 Eos % (Auto) 1.9 Baso % (Auto) 0.8 Neut # (Auto) 7.4 Lymph # (Auto) 2.2 [place] # (Auto) 0.8 Eos # (Auto) 0.2 Baso # (Auto) 0.1 WBC Differential . Differential Comment Auto diff final Lab - Chemistry Results 10/13/17 10/14/17 10/14/17 22:03 03:34 08:13 Sodium 139 Potassium 3.9 Chloride 104 Carbon Dioxide 28.3 Anion Gap 7 BUN 15 Creatinine 0.94 Estimated GFR 82 L POC Glucose 296 H 194 H Random Glucose 173 H Calcium 9.1 10/14/17 10/14/17 10/14/17 11:15 17:12 19:17 Sodium Potassium Chloride Carbon Dioxide Anion Gap BUN Creatinine Estimated GFR POC Glucose 224 H 279 H 351 H Random Glucose Calcium 10/15/17 10/15/17 08:07 11:53 Sodium Potassium Chloride Carbon Dioxide Anion Gap BUN Creatinine Estimated GFR POC Glucose 187 H 287 H Random Glucose Calcium Imaging: ITS Impressions Abdomen/Pelvis CT 10/06/17 00:00 CONCLUSION: 1. No acute abnormality seen. 2. Increased density at the posterior lower lobes likely related to mild atelectasis. 3. Scattered atherosclerotic calcifications throughout the arterial system. 4. Degenerative and postsurgical change in the lumbar spine. Chest X-Ray 10/09/17 09:27 CONCLUSION: 1. Cardiomegaly with new mild positive fluid balance. Foot X-Ray 10/10/17 00:00 CONCLUSION: Status post amputation of the second toe. No acute bony abnormality or destructive changes. Physical Exam: GENERAL: NAD SKIN: Warm and dry. HEAD: Atraumatic. Normocephalic. EYES: Pupils equal and round. No scleral icterus. No injection or drainage. ENT: No nasal bleeding or discharge. Mucous membranes pink and moist. NECK: Trachea midline. No JVD. CARDIOVASCULAR: Regular rate and rhythm. AICD in place, no skin changes, well healed incision somewhat puffy RESPIRATORY: No accessory muscle use. Clear to auscultation. Breath sounds equal bilaterally. GASTROINTESTINAL: Abdomen soft, non-tender, nondistended. Hepatic and splenic margins not palpable. MUSCULOSKELETAL: Extremities without clubbing, cyanosis, or edema. No obvious deformities. dressong in lace R foot s/p 2nd R toe amputation and site is not healed yet No purulence or edema/erythema however NEUROLOGICAL: Awake and alert. No obvious cranial nerve deficits. Motor grossly within normal limits. Five out of 5 muscle strength in the arms and legs. Normal speech. PSYCHIATRIC: Appropriate mood and affect; insight and judgment normal. Assessment and Plan (1) Staphylococcal sepsis Status: Acute Code(s): A41.2 - Sepsis due to unspecified staphylococcus (2) Staphylococcus aureus bacteremia with sepsis Status: Acute Code(s): A41.01 - Sepsis due to Methicillin susceptible Staphylococcus aureus - Plan MSSAhigh grade bactermia 2/2 PICC line Recent osteo 2 nd toe sp amputaiton AICD associated TV endocarditis sp AICD placement in May + CARA with veg'n 20x28 mm Non healing R 2nd toe amputation site cont oxacillin - monitoring parameters: CBC, CMP at least weekly for AICD removal and life vest AICD can be placed on contralateral site after 2 wweeks of IV abx providing blood clx remian negative and no active infx in R foot consult podiatry consult poditry xray R foot paola RN
--- NOTE | 2017-10-15 14:26 | ECHRPT ---
Indication: POSS SEPSIS, ENDOCARDITIS CONCLUSIONS 1.)Mild to moderaelty dilated left ventricle with normal wall thickness and severe left ventricular systlic dysfunction, ef=25% 2.) moderate mr 3.) left atrial appendage appears normal 4.) 28 mm x 20 mm globular mass adjacent to tricuspid valve leaflet and icd lead 5.) negative color doppler analysis for atrial septal shunt 6.) normal appearing ascending and descending thoracic aorta BP: / HR: Rhythm: Technical Quality: Medications Complications Proc. Components Garrett Henao MD, FACC, FSCAI (Electronically Signed) Final Date:15 October 2017 14:25
--- NOTE | 2017-10-15 16:07 | P.PNPAL ---
Reason for Visit Reason for visit: a. To assist with evaluation and management of symptoms including: Chest pain, weakness b. To assist medical decision maker(s) with: better understanding of current medical conditions; weighing benefits/burdens of medical treatment options; making medical treatment decisions. Subjective Subjective/Interval History: Patient seen today to follow-up on symptom management of chest pain and weakness. Patient underwent transesophageal echocardiogram yesterday to evaluate possible endocarditis showing a mild to moderately dilated left ventricle with normal wall thickness and severe left ventricular systolic dysfunction with EF of 25%, moderate mitral regurgitation and, most significantly, a 28 mm x 20 mm globular mass adjacent to the tricuspid valve leaflet and ICD lead. He is potentially scheduled for ICD system explantation, to include lead extraction, on 10/16, with subsequent antibiotics per ID. Patient seen resting in bed. He denies any dyspnea with deep inspiration or movement. Chest pain experienced on admission has now resolved, but had previously presented as chest pressure occurring with dyspnea and palpitations. No chest pain has been elicited through palpation of the chest wall. He has been sedentary and no evaluation of his activity tolerance can be made at this time. He does have a known ejection fraction of approximately 25% as well as severe coronary artery disease, not amenable to revascularization, per heart catheterization done May 2012. He had previously been referred for a heart transplant however has not been accepted for admission due to lack of funding. He remains generally weak and declined physical therapy today due to fatigue and weakness. He is able to reposition himself in bed and sit up at bedside, but becomes very fatigued with minimal activity, such as ambulating to bathroom. He complains of generally "having no energy" and "does not feel like doing much". . Family/Friend Interactions: No family is at bedside at this time. Reviewed upcoming, planned defibrillator and lead wire extraction with patient, which had been discussed with the patient by Dr. Aguirre last evening. Patient is aware that he will need to wear a LifeVest and be on IV antibiotics. He is aware of the risk of potential pulmonary embolus or stroke with the procedure and is willing to proceed. All questions were answered to the best of my ability. . Advance Directives Health Care Surrogate Name and Number: Lisseth Drake Objective Vital Signs: Vital Signs 10/14/17 16:49 10/14/17 17:29 10/14/17 19:00 Temperature 98.7 F Pulse Rate 73 83 84 Respiratory Rate 16 Blood Pressure 135/63 Pulse Oximetry 99 10/14/17 20:00 10/14/17 21:00 10/14/17 22:00 Temperature Pulse Rate 81 76 93 H Respiratory Rate Blood Pressure Pulse Oximetry 10/14/17 23:00 10/15/17 00:00 10/15/17 01:00 Temperature 99.8 F H Pulse Rate 85 85 79 Respiratory Rate 16 Blood Pressure 119/69 Pulse Oximetry 96 10/15/17 02:00 10/15/17 03:00 10/15/17 04:00 Temperature 100.1 F H Pulse Rate 88 87 79 Respiratory Rate 16 Blood Pressure 122/75 Pulse Oximetry 97 10/15/17 05:00 10/15/17 06:00 10/15/17 07:00 Temperature 98.7 F Pulse Rate 87 90 83 Respiratory Rate 14 Blood Pressure 119/69 Pulse Oximetry 99 10/15/17 08:00 10/15/17 09:00 10/15/17 10:00 Temperature Pulse Rate 74 75 75 Respiratory Rate Blood Pressure Pulse Oximetry 10/15/17 11:00 10/15/17 12:00 10/15/17 13:00 Temperature 98.6 F Pulse Rate 78 87 86 Respiratory Rate 16 Blood Pressure 120/66 Pulse Oximetry 96 10/15/17 14:00 Temperature Pulse Rate 86 Respiratory Rate Blood Pressure Pulse Oximetry Intake & Output 10/14/17 10/15/17 10/15/17 18:59 06:59 18:59 Intake Total 1310 / 1310 1270 / 1270 100 / 100 Output Total 1025 / 1025 Balance 1310 / 1310 245 / 245 100 / 100 Weight 187 lb 6.287 oz Intake: IV 850 / 850 550 / 550 100 / 100 Heparin/D5W 25,000 U/250 mL 25, 250 / 250 250 / 250 000 unit In 250 ml @ Per Protocol IV.CONT TITRATE PRN Rx #:[id number] Prostaphlin Inj 2 GM In NS Inj 400 / 400 300 / 300 100 / 100 100 ML @ 200 mls/hr IV.SIG Q4H JEFE Rx#:[id number] Prostaphlin Inj 2 GM In NS Inj 100 / 100 100 ML @ 200 mls/hr IV.SIG Q4H JEFE Rx#:[id number] Oral 460 / 460 720 / 720 Output: Urine 1025 / 1025 Other: # Voids 3 Date of Last Bowel Movement 10/13/17 # Bowel Movements 1 Physical Exam: CONSTITUTIONAL/GENERAL: This is an adequately nourished patient, in no apparent distress. TUBES/LINES/DRAINS: PIV SKIN: No jaundice, rashes, or lesions. Ecchymoses on upper extremities. No wounds seen anteriorly. Skin temperature appropriate. Not diaphoretic. HEAD: Atraumatic. Normocephalic. EYES: Pupils equal and round and reactive. Extraocular motions intact. No scleral icterus. No injection or drainage. Fundi not examined. ENT: Hearing grossly normal. Nose without bleeding or purulent drainage. Throat without visible erythema, exudates, masses, or lesions. NECK: Trachea midline. Supple, nontender. No palpable thyroid enlargement or nodularity. CARDIOVASCULAR: S1, S2, Regular rate and rhythm without gallops, or rubs. 1/6 ROMMEL. No JVD. Peripheral pulses symmetric. RESPIRATORY/CHEST: Symmetric, unlabored respirations. Clear to auscultation. Breath sounds equal bilaterally. No wheezes, rales, or rhonchi. No tenderness to palpation. GASTROINTESTINAL: Abdomen soft, non-tender, nondistended. No hepato-splenomegaly , or palpable masses. No guarding. Bowel sounds present. GENITOURINARY: Without palpable bladder distension. MUSCULOSKELETAL: Extremities without clubbing, cyanosis, or edema.Right second toe amputation incision healing without erythema or drainage. No joint tenderness or effusion noted. No calf tenderness. No mottling or clubbing. LYMPHATICS: No palpable cervical or supraclavicular adenopathy. NEUROLOGICAL: Awake and alert. Motor and sensory grossly within normal limits. Follows commands. Cognitively sharp. Moves all extremities. PSYCHIATRIC: No obvious anxiety/depression. no apparent hallucinations or other psychotic thought process. . Diagnostic Tests Laboratory: Laboratory Results - last 72 hr 10/12/17 10/12/17 10/12/17 15:19 17:05 21:39 WBC RBC Hgb Hct MCV MCH MCHC RDW Plt Count MPV Neut % (Auto) Lymph % (Auto) [place] % (Auto) Eos % (Auto) Baso % (Auto) Neut # (Auto) Lymph # (Auto) [place] # (Auto) Eos # (Auto) Baso # (Auto) WBC Differential Differential Comment APTT 39.5 H Sodium Potassium Chloride Carbon Dioxide Anion Gap BUN Creatinine Estimated GFR POC Glucose 88 207 H Random Glucose Calcium 10/12/17 10/13/17 10/13/17 22:24 05:20 07:49 WBC RBC Hgb Hct MCV MCH MCHC RDW Plt Count MPV Neut % (Auto) Lymph % (Auto) [place] % (Auto) Eos % (Auto) Baso % (Auto) Neut # (Auto) Lymph # (Auto) [place] # (Auto) Eos # (Auto) Baso # (Auto) WBC Differential Differential Comment APTT 42.5 H 43.2 H Sodium Potassium Chloride Carbon Dioxide Anion Gap BUN Creatinine Estimated GFR POC Glucose 182 H Random Glucose Calcium 10/13/17 10/13/17 10/14/17 11:59 22:03 03:34 WBC RBC Hgb Hct MCV MCH MCHC RDW Plt Count MPV Neut % (Auto) Lymph % (Auto) [place] % (Auto) Eos % (Auto) Baso % (Auto) Neut # (Auto) Lymph # (Auto) [place] # (Auto) Eos # (Auto) Baso # (Auto) WBC Differential Differential Comment APTT 49.9 H Sodium Potassium Chloride Carbon Dioxide Anion Gap BUN Creatinine Estimated GFR POC Glucose 251 H 296 H Random Glucose Calcium 10/14/17 10/14/17 10/14/17 03:34 03:34 08:13 WBC 10.7 RBC 4.14 L Hgb 11.8 L Hct 34.5 L MCV 83.4 MCH 28.4 MCHC 34.1 RDW 14.5 Plt Count 291 D MPV 8.0 Neut % (Auto) 69.3 Lymph % (Auto) 20.2 [place]lands % (Auto) 7.8 Eos % (Auto) 1.9 Baso % (Auto) 0.8 Neut # (Auto) 7.4 Lymph # (Auto) 2.2 [place]lands # (Auto) 0.8 Eos # (Auto) 0.2 Baso # (Auto) 0.1 WBC Differential . Differential Comment Auto diff final APTT Sodium 139 Potassium 3.9 Chloride 104 Carbon Dioxide 28.3 Anion Gap 7 BUN 15 Creatinine 0.94 Estimated GFR 82 L POC Glucose 194 H Random Glucose 173 H Calcium 9.1 10/14/17 10/14/17 10/14/17 11:15 17:12 19:17 WBC RBC Hgb Hct MCV MCH MCHC RDW Plt Count MPV Neut % (Auto) Lymph % (Auto) [place] % (Auto) Eos % (Auto) Baso % (Auto) Neut # (Auto) Lymph # (Auto) [place] # (Auto) Eos # (Auto) Baso # (Auto) WBC Differential Differential Comment APTT Sodium Potassium Chloride Carbon Dioxide Anion Gap BUN Creatinine Estimated GFR POC Glucose 224 H 279 H 351 H Random Glucose Calcium 10/15/17 10/15/17 10/15/17 03:33 08:07 11:53 WBC RBC Hgb Hct MCV MCH MCHC RDW Plt Count MPV Neut % (Auto) Lymph % (Auto) [place] % (Auto) Eos % (Auto) Baso % (Auto) Neut # (Auto) Lymph # (Auto) [place] # (Auto) Eos # (Auto) Baso # (Auto) WBC Differential Differential Comment APTT 54.7 H Sodium Potassium Chloride Carbon Dioxide Anion Gap BUN Creatinine Estimated GFR POC Glucose 187 H 287 H Random Glucose Calcium Result Diagrams: 10/14/17 03:34 10/14/17 03:34 Microbiology: Microbiology 10/11/17 02:20 Aerobic Blood Culture - Preliminary Blood - Peripheral No growth in 4 days Anaerobic Blood Culture - Preliminary No growth in 4 days 10/11/17 02:25 Aerobic Blood Culture - Preliminary Blood - Peripheral No growth in 4 days Anaerobic Blood Culture - Preliminary No growth in 4 days Imaging: Abdomen/Pelvis CT 10/06/17 00:00 CONCLUSION: 1. No acute abnormality seen. 2. Increased density at the posterior lower lobes likely related to mild atelectasis. 3. Scattered atherosclerotic calcifications throughout the arterial system. 4. Degenerative and postsurgical change in the lumbar spine. Chest X-Ray 10/06/17 08:34 CONCLUSION: No evidence of congestive heart failure. Stable mild cardiomegaly. Otherwise negative exam. Chest X-Ray 10/09/17 09:27 CONCLUSION: 1. Cardiomegaly with new mild positive fluid balance. Foot X-Ray 10/10/17 00:00 CONCLUSION: Status post amputation of the second toe. No acute bony abnormality or destructive changes. Procedures: 10/14/17 - CARA . Assessment and Plan Pertinent Non-Medical Issues: Psychosocial:He was born in [place] and moved to [place] before he was 8 years old. 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 He has never been and has no children. He has a significant other whom he has made a healthcare surrogate. He was in the service but did not serve during more time. Spiritual: Identifies with the [employer] and would accept memory care program director visits. Legal: Healthcare surrogate, identifying his girlfriend Lisseth as his primary healthcare surrogate and his sister, Michelle Ayon as his alternate. Ethical issues impacting care: None noted. . Important Contacts: Girlfriend: Lisseth Drake Sister: Michelle Ayon , . Prognosis: His prognosis is poor. He has a significantly reduced ejection fraction of 25- 30% with ischemic cardiomyopathy, moderate mitral regurgitation, moderate to severe tricuspid regurgitation, pulmonary hypertension and is not a candidate for revascularization. He has been referred to [facility] several times but declined due to no insurance coverage. This is his sixth admission to [facility] in 2018 for recurrent decline and complication. He has end- stage heart disease and would be hospice appropriate if goals were consistent. . Code Status: Full Code Plan: PLAN: Legal decision maker: He is currently capacitated for making his own decisions, however has designated his girlfriend Lisseth as his primary healthcare surrogate and his sister, Michelle, as his alternate in case he becomes incapacitated. Goals: Aggressive. CODE STATUS: FULL CODE SYMPTOMS: * Chest pain: He was admitted with chest pressure and does have a history of unstable angina, secondary to severe coronary artery disease and ischemic cardiomyopathy. He is currently receiving aspirin, atorvastatin, carvedilol, furosemide, heparin and has morphine and nitroglycerin available as needed. Last dose of morphine given on 10/11. Has received no nitroglycerin since admission. He denies any recurrent chest pressure today. No further recommendations at this time. * Weakness: Multifactorial to include recent right toe surgery, positive blood cultures, sedentary behavior, activity limiting cardiovascular disease, COPD, history of smoking and progressive debility. This is likely to worsen as he is now scheduled to undergo another procedure to extract the defibrillator and lead. He may also need placement of another PICC line. Options for recovery are limited as he is unable to perform progressive exercise due to his symptomatic limitations. . Palliative care will continue to follow the patient during hospital course as condition evolves, to assist patient/decision-maker with understanding of their medical conditions, weighing benefits/burdens of treatment options, for clarification of goals of treatment. Additionally will assist with any symptoms of palliative concern. . Attestation Attestation: To help prompt me to consider important information that might be impacting today's encounter and assessment, information from prior notes written by myself or my colleagues may have been "brought forward" into today's note. My signature on this note, however, is an attestation that I personally performed the exam, history, and/or decision-making noted today, and, unless otherwise indicated, the interactions with patient, family, and staff as well as the review of records all occurred today. I also attest that the listed assessment and stated plan reflect my best clinical judgment today based on the combination of historical information, prior notes, and today's exam/ interactions. When time spent is documented, it refers only to time spent today by the signer, or if indicated, combined time spent today by collaborating physician/nurse practitioner. .
--- NOTE | 2017-10-15 17:29 | XR ---
EXAM DATE: 10/15/2017 5:13 PM EDT AGE/SEX: 57 years / Male INDICATIONS: Pain in right foot. CLINICAL DATA: This is the patient's subsequent encounter. Patient reports that signs and symptoms h ave been present for 1 week and indicates a pain score of 1/10. MEDICAL/SURGICAL HISTORY: . Previous infection on right foot. . Right foot, second digit amput ation. COMPARISON: [facility] [place], FOOT LIMITED RIGHT 2V, 10/10/2017. . FINDINGS: Limited AP and lateral views of left foot were obtained and again demonstrate the patient is status p ost amputation of the second digit to the level of the metatarsal head. There is no acute fracture or malalignment. There are mild degenerative changes involving the interphalangeal joints, metatarsal t arsal joints and intertarsal joints with sclerosis and mild narrowing. No focal soft tissue abnormali ty is identified. CONCLUSION: 1. Status post amputation of the second digit. 2. Mild osteoarthritic change. 3. No evidence to suggest osteomyelitis. Electronically signed by: Nick Agee MD 10/15/2017 5:27 PM EDT
--- NOTE | 2017-10-15 19:28 | MB ---
cc: Razia Conway DPM DATE: 10/15/2017 CHIEF COMPLAINT: Right foot ulceration. HISTORY OF PRESENT ILLNESS: Mr. Estrada is a 57-year-old male patient who was admitted on 09/06. He is in need of an AICD exchange. However, there has been concerns of infection. He had a right second toe amputation in August with Dr. Goldman. He says he followed up in the office with her intermittently. The incision site did dehisced at some point after the suture removal. She was treating him with clindamycin, which he did complete, but did not followup with her afterwards. He denies any pain to the site or concerns over the foot. PAST MEDICAL HISTORY: Includes coronary artery disease, peripheral arterial disease, diabetes mellitus type 2, COPD, hepatitis C antibody positive, history of basal cell carcinoma, essential hypertension, hyperlipidemia, myocardial infarction. PAST SURGICAL HISTORY: Includes right 2nd toe amputation, AICD, appendectomy, cardiac catheterization, back surgeries and CABG x 3. FAMILY HISTORY: Noncontributory. SOCIAL HISTORY: The patient is a former smoker, drinks socially and denies any IV drug abuse. MEDICATIONS: Please see list. VITAL SIGNS: Temperature is 98.6, pulse rate is 80, respiratory rate 17, blood pressure 127/70, pulse oximetry 96% O2 on room air. LABORATORY DATA: White count is 10.7, hemoglobin 11.8, hematocrit 34.5, platelets 291. IMAGING: On x-rays, there is an absence of a second digit, but the metatarsals shows no signs of osteomyelitis. There is no gas in the soft tissue. No other osseous abnormalities of interest. PHYSICAL EXAMINATION: The patient has diminished pulses. Capillary refill time of less than 3 seconds. Gross sensation is diminished. The right second digit is absent. There is an ulceration approximately 1 x 0.8 x 0.2 cm, with a fibrogranular base. Wound bed is soft, but there is no deep probing or exposed bone. No erythema, no malodor. Mild serous drainage. ASSESSMENT AND PLAN: Right foot stage II ulceration. No signs of active infection. 1. It is in my professional opinion that there are no signs of active infection at this time at the previous amputation site. This is based on radiographs, as well as clinical examination. 2. If concern for infection persists, would suggest an MRI or 3-phase bone scan. 3. Wound care orders placed for nursing staff to be done daily. 4. We will continue to monitor this patient intermittently while in-house. 5. The patient was encouraged to followup with Dr. Goldman, his surgeon, once discharged from the hospital. Thank you for this consultation. SHARON Presley , 07:00 PM , 07:26 PM
--- NOTE | 2017-10-15 20:16 | P.PN ---
Physical Exam Vital signs: Vital Signs 10/14/17 21:00 10/14/17 22:00 10/14/17 23:00 Temperature 99.8 F H Pulse Rate 76 93 H 85 Respiratory Rate 16 Blood Pressure 119/69 Pulse Oximetry 96 10/15/17 00:00 10/15/17 01:00 10/15/17 02:00 Temperature Pulse Rate 85 79 88 Respiratory Rate Blood Pressure Pulse Oximetry 10/15/17 03:00 10/15/17 04:00 10/15/17 05:00 Temperature 100.1 F H Pulse Rate 87 79 87 Respiratory Rate 16 Blood Pressure 122/75 Pulse Oximetry 97 10/15/17 06:00 10/15/17 07:00 10/15/17 08:00 Temperature 98.7 F Pulse Rate 90 83 74 Respiratory Rate 14 Blood Pressure 119/69 Pulse Oximetry 99 10/15/17 09:00 10/15/17 10:00 10/15/17 11:00 Temperature 98.6 F Pulse Rate 75 75 78 Respiratory Rate 16 Blood Pressure 120/66 Pulse Oximetry 96 10/15/17 12:00 10/15/17 13:00 10/15/17 14:00 Temperature Pulse Rate 87 86 86 Respiratory Rate Blood Pressure Pulse Oximetry 10/15/17 15:00 10/15/17 16:00 10/15/17 17:00 Temperature 98.6 F Pulse Rate 80 89 87 Respiratory Rate 17 Blood Pressure 127/70 Pulse Oximetry 96 10/15/17 18:00 Temperature Pulse Rate 86 Respiratory Rate Blood Pressure Pulse Oximetry Intake & Output 10/15/17 10/15/17 10/16/17 06:59 18:59 06:59 Intake Total 1270 / 1270 1410 / 1410 100 / 100 Output Total 1025 / 1025 Balance 245 / 245 1410 / 1410 100 / 100 Weight 85 kg Intake: IV 550 / 550 450 / 450 100 / 100 Heparin/D5W 25,000 U/250 mL 25, 250 / 250 250 / 250 000 unit In 250 ml @ Per Protocol IV.CONT TITRATE PRN Rx #:[id number] Prostaphlin Inj 2 GM In NS Inj 300 / 300 200 / 200 100 / 100 100 ML @ 200 mls/hr IV.SIG Q4H JEFE Rx#:[id number] Oral 720 / 720 960 / 960 Output: Urine 1025 / 1025 Other: # Voids 2 Date of Last Bowel Movement 10/15/17 Narrative: Subjective Interval history: F/up NSTEMI, Bacteremia MSSA, Endocarditis TV Intermittent cp, does not have CP at this time. No sob satting well on room air. No palpitations or lightheadedness. No lower extremity edema. No nausea vomiting. Physical Exam GENERAL: 57-year-old male, well-developed, well-nourished, in no acute distress. CARDIAC: Regular rhythm, regular rate. No MRG LUNGS: Clear to auscultation bilaterally. No wheeze, rhonchi or rales. ABDOMEN: Bowel sounds present. No distention. EXTREMITIES: No edema. Bandage on right foot, CDI. NEUROLOGY: Awake and alert. Cranial nerves II through XII grossly intact. Muscle strength 5/5 in upper and lower extremities bilaterally. Assessment and Plan Non-ST elevated myocardial infarction Systolic CHF with severely reduced EF of 25-30% -Patient does have increased risk factors to include age, male, hypertension, hyperlipidemia, coronary artery disease, cardiomyopathy -Patient did have serial cardiac enzymes performed which did show a significant elevation up to 7.05 now going down to 2.63 -EKG does show acute changes with inverted T waves in inferior leads and ST depressions in the lateral leads -Patient is Coreg, statin, will start aspirin, nitroglycerin as needed -Cardiology has been consulted and says he is not a candidate for cardiac catheterization. They recommend palliative care or referral for heart transplant work-up. -Continue oxygen -Continue monitor telemetry -Morphine for pain control -S/p CARA with large TV endocarditis Bacteremia -High-grade MSSA infection from PICC line. Repeat cultures also positive. -PICC line has been removed. -Infectious disease consulted appreciate recommendations. Continue antibiotics. S/P CARA 10/14/17 Patient with MSSA high grade bactermia 2/2 PICC line Recent osteo 2 nd toe sp amputation Consult podiatry for evaluation patient can't have MRI because has AICD Plan for AICD removal by Dr Aguirre Patient will need AICD associated TV endocarditis sp AICD placement in May + CARA ( 10/14/17) with large vegetation 20x28 mm cont oxacillin per ID Dr Tinsley ID ff needs AICD removal per Id recommendations, who notified cardiology Dr Aguirre EP Sepsis, resolved -Patient did meet criteria on presentation with leukocytosis, lactic acidosis, source of infection -Patient was started on empiric antibiotics include vancomycin, Zosyn, now on oxacillin as patient with MSSA bacteremia -Patient was pancultured and found to have bacteremia as above Anxiety The pt has episodes of shaking and respiratory distress that may be s/t anxiety. - Ativan as needed. Diabetic ketoacidosis, uncontrolled diabetes, improved -Status post insulin drip -Hemoglobin A1c 8.2 -Continue sliding scale insulin Metabolic/toxic encephalopathy, likely secondary to infection, diabetic ketoacidosis, resolved -Continue monitor neuro checks Lactic acid acidosis, resolved -Multifactorial with diabetic ketoacidosis and sepsis Acute renal failure superimposed on chronic kidney disease stage II, improved -BRIANA inhibitor has been held -Avoid nephrotoxins Muscle spasm the back. Start Flexeril DVT prevention -Patient is on heparin IV Discussed with the patient, nurse, ID specialist Dr Henao Per Dr. Henao cardiology patient needs a heart transplant. Case management consulted Also palliative care consulted for goals of care S/P CARA with large TV endocarditis. Per ID indication Dr Tinsley AICD to be removed. Plan for AICD removal by Dr Aguirre. Patient to have life vest. If remains afebrile for 2 weeks might consider AICD placement in the opposite side of chest. Patient will also need ferry terminal agent IV antibiotic. Patient also has likely osteo, podiatry consulted Also might need evaluation from [facility] surgery Results - Labs CBC & Chem 7: 10/14/17 03:34 10/14/17 03:34 Laboratory Results - last 24 hr 10/15/17 10/15/17 10/15/17 03:33 08:07 11:53 APTT 54.7 H POC Glucose 187 H 287 H 10/15/17 10/15/17 16:37 20:12 APTT POC Glucose 195 H 331 H Microbiology 10/11/17 02:20 Blood - Peripheral Aerobic Blood Culture - Preliminary No growth in 4 days 10/11/17 02:20 Blood - Peripheral Anaerobic Blood Culture - Preliminary No growth in 4 days 10/11/17 02:25 Blood - Peripheral Aerobic Blood Culture - Preliminary No growth in 4 days 10/11/17 02:25 Blood - Peripheral Anaerobic Blood Culture - Preliminary No growth in 4 days - Imaging Impressions Foot X-Ray 10/15/17 00:00 CONCLUSION: 1. Status post amputation of the second digit. 2. Mild osteoarthritic change. 3. No evidence to suggest osteomyelitis. - Procedures Awaiting echocardiogram
[2017-10-15] MEDS: LORazepam 1 MG Tablet PO PRN (21:18)
--- NOTE | 2017-10-15 22:36 | P.PN ---
Subjective Interval history: Feeling ok Physical Exam Vital signs: Vital Signs 10/14/17 23:00 10/15/17 00:00 10/15/17 01:00 Temperature 99.8 F H Pulse Rate 85 85 79 Respiratory Rate 16 Blood Pressure 119/69 Pulse Oximetry 96 10/15/17 02:00 10/15/17 03:00 10/15/17 04:00 Temperature 100.1 F H Pulse Rate 88 87 79 Respiratory Rate 16 Blood Pressure 122/75 Pulse Oximetry 97 10/15/17 05:00 10/15/17 06:00 10/15/17 07:00 Temperature 98.7 F Pulse Rate 87 90 83 Respiratory Rate 14 Blood Pressure 119/69 Pulse Oximetry 99 10/15/17 08:00 10/15/17 09:00 10/15/17 10:00 Temperature Pulse Rate 74 75 75 Respiratory Rate Blood Pressure Pulse Oximetry 10/15/17 11:00 10/15/17 12:00 10/15/17 13:00 Temperature 98.6 F Pulse Rate 78 87 86 Respiratory Rate 16 Blood Pressure 120/66 Pulse Oximetry 96 10/15/17 14:00 10/15/17 15:00 10/15/17 16:00 Temperature 98.6 F Pulse Rate 86 80 89 Respiratory Rate 17 Blood Pressure 127/70 Pulse Oximetry 96 10/15/17 17:00 10/15/17 18:00 10/15/17 19:00 Temperature 98.5 F Pulse Rate 87 86 87 Respiratory Rate 16 Blood Pressure 121/68 Pulse Oximetry Intake & Output 10/15/17 10/15/17 10/16/17 06:59 18:59 06:59 Intake Total 1270 / 1270 1410 / 1410 100 / 100 Output Total 1025 / 1025 Balance 245 / 245 1410 / 1410 100 / 100 Weight 85 kg Intake: IV 550 / 550 450 / 450 100 / 100 Heparin/D5W 25,000 U/250 mL 25, 250 / 250 250 / 250 000 unit In 250 ml @ Per Protocol IV.CONT TITRATE PRN Rx #:[id number] Prostaphlin Inj 2 GM In NS Inj 300 / 300 200 / 200 100 / 100 100 ML @ 200 mls/hr IV.SIG Q4H JEFE Rx#:[id number] Oral 720 / 720 960 / 960 Output: Urine 1025 / 1025 Other: # Voids 2 Date of Last Bowel Movement 10/15/17 - Constitutional no acute distress - Routine HEENT Exam Head: Present: normocephalic Eye: Present: PERRL ENT: Present: mucous membranes moist - Routine Respiratory Exam Present: CTA bilaterally - Routine Cardiovascular Exam Present: RRR, S1, S2 - Routine Neurological Exam Present: alert, oriented X3 Results - Labs CBC & Chem 7: 10/14/17 03:34 10/14/17 03:34 Laboratory Results - last 24 hr 10/15/17 10/15/17 10/15/17 03:33 08:07 11:53 APTT 54.7 H POC Glucose 187 H 287 H 10/15/17 10/15/17 16:37 20:12 APTT POC Glucose 195 H 331 H Microbiology 10/11/17 02:20 Blood - Peripheral Aerobic Blood Culture - Preliminary No growth in 4 days 10/11/17 02:20 Blood - Peripheral Anaerobic Blood Culture - Preliminary No growth in 4 days 10/11/17 02:25 Blood - Peripheral Aerobic Blood Culture - Preliminary No growth in 4 days 10/11/17 02:25 Blood - Peripheral Anaerobic Blood Culture - Preliminary No growth in 4 days - Imaging Impressions Foot X-Ray 10/15/17 00:00 CONCLUSION: 1. Status post amputation of the second digit. 2. Mild osteoarthritic change. 3. No evidence to suggest osteomyelitis. - Procedures Awaiting echocardiogram Assessment and Plan - Assessment (1) Staphylococcus aureus bacteremia with sepsis Code(s): A41.01 - Sepsis due to Methicillin susceptible Staphylococcus aureus Status: Acute Plan: Bacteremia due to osteomyelitis. Vegetation on lead. ICD and Lead needs to be remove The risks, the nature and benefits discussed with him Patient understand and agree to proceed. Procedure is scheduled for tomorrow PM.
[2017-10-15] MEDS: Hypromellose 0.3% Opth Gel 10 GM Bottle EACH EYE SCH (22:44)
[2017-10-16] MEDS: SODIUM CHLOR 0.9% IV.SIG SCH ×4 (01:54→14:38)
[2017-10-16] MEDS: OXACILLIN IV.SIG SCH ×4 (01:54→14:38)
[2017-10-16] MEDS ORDERED: Chlorhexidine 4% Topical 120 APPLIC/120 ML Bottle TOPICAL SCH ×2 (08:45→15:45)
[2017-10-16] MEDS ORDERED: Sodium Chloride 0.9% Irr Bot 500 ML, ceFAZolin Inj 500 MG IRRIGATION SCH ×4 (08:45→15:45)
[2017-10-16] MEDS: Insulin NovoLOG Aspart Correctional Sugar Inj SQ SCH ×5 (08:48→20:57)
[2017-10-16] MEDS: Furosemide 20 MG Tablet PO SCH ×2 (08:49→09:36)
[2017-10-16] MEDS: Polyethylene Glycol 3350 17 GM Packet PO SCH ×2 (08:49→09:36)
[2017-10-16] MEDS: Insulin Detemir Inj 1,000 UNIT/10 ML Vial SQ SCH ×2 (08:49→09:36)
[2017-10-16] MEDS: Senna/Docusate Sodium 8.6/50 MG Tablet PO SCH ×3 (08:50→21:01)
[2017-10-16] MEDS: Collagenase Oint 30 GM Tube TOPICAL SCH ×2 (08:50→09:37)
[2017-10-16] MEDS: Carvedilol 6.25 MG Tablet PO SCH ×3 (08:53→20:50)
[2017-10-16] MEDS ORDERED: ceFAZolin 2 GM Premix Inj 2 GM/50 ML PIGGYBACK IV.SIG SCH (09:00)
[2017-10-16] MEDS: Heparin Drip 25,000 UNIT/250 ML BAG IV.CONT PRN (09:41)
--- NOTE | 2017-10-16 09:43 | P.PN ---
Physical Exam Vital signs: Vital Signs 10/15/17 10:00 10/15/17 11:00 10/15/17 12:00 Temperature 98.6 F Pulse Rate 75 78 87 Respiratory Rate 16 Blood Pressure 120/66 Pulse Oximetry 96 10/15/17 13:00 10/15/17 14:00 10/15/17 15:00 Temperature 98.6 F Pulse Rate 86 86 80 Respiratory Rate 17 Blood Pressure 127/70 Pulse Oximetry 96 10/15/17 16:00 10/15/17 17:00 10/15/17 18:00 Temperature Pulse Rate 89 87 86 Respiratory Rate Blood Pressure Pulse Oximetry 10/15/17 19:00 10/15/17 20:00 10/15/17 21:00 Temperature 98.5 F Pulse Rate 86 72 66 Respiratory Rate 16 Blood Pressure 121/68 Pulse Oximetry 10/15/17 22:00 10/15/17 23:00 10/16/17 00:00 Temperature Pulse Rate 70 97 H 97 H Respiratory Rate 16 Blood Pressure Pulse Oximetry 10/16/17 01:00 10/16/17 02:00 10/16/17 03:00 Temperature 98.4 F Pulse Rate 93 H 79 86 Respiratory Rate 18 Blood Pressure 117/66 Pulse Oximetry 10/16/17 04:00 10/16/17 05:00 10/16/17 06:00 Temperature Pulse Rate 86 88 85 Respiratory Rate Blood Pressure Pulse Oximetry 10/16/17 08:54 Temperature Pulse Rate Respiratory Rate Blood Pressure Pulse Oximetry 93 L Intake & Output 10/15/17 10/16/17 10/16/17 18:59 06:59 18:59 Intake Total 1410 / 1410 1120 / 1120 250 / 250 Output Total 700 / 700 Balance 1410 / 1410 420 / 420 250 / 250 Weight 85.389 kg Intake: IV 450 / 450 400 / 400 250 / 250 Heparin/D5W 25,000 U/250 mL 25, 250 / 250 250 / 250 000 unit In 250 ml @ Per Protocol IV.CONT TITRATE PRN Rx #:[id number] Prostaphlin Inj 2 GM In NS Inj 200 / 200 400 / 400 100 ML @ 200 mls/hr IV.SIG Q4H JEFE Rx#:[id number] Oral 960 / 960 720 / 720 Output: Urine 700 / 700 Other: # Voids 2 Date of Last Bowel Movement 10/15/17 Narrative: Subjective Interval history: F/up NSTEMI, Bacteremia MSSA, Endocarditis TV Intermittent cp, and sob especially with ambulation. No sob satting well on room air. No palpitations or lightheadedness. No lower extremity edema. No nausea vomiting. Physical Exam GENERAL: 57-year-old male, well-developed, well-nourished, in no acute distress. CARDIAC: Regular rhythm, regular rate. No MRG LUNGS: Clear to auscultation bilaterally. No wheeze, rhonchi or rales. ABDOMEN: Bowel sounds present. No distention. EXTREMITIES: No edema. Bandage on right foot, CDI. NEUROLOGY: Awake and alert. Cranial nerves II through XII grossly intact. Muscle strength 5/5 in upper and lower extremities bilaterally. Assessment and Plan Non-ST elevated myocardial infarction Systolic CHF with severely reduced EF of 25-30% -Patient does have increased risk factors to include age, male, hypertension, hyperlipidemia, coronary artery disease, cardiomyopathy -Patient did have serial cardiac enzymes performed which did show a significant elevation up to 7.05 now going down to 2.63 -EKG does show acute changes with inverted T waves in inferior leads and ST depressions in the lateral leads -Patient is Coreg, statin, will start aspirin, nitroglycerin as needed -Cardiology has been consulted and says he is not a candidate for cardiac catheterization. They recommend palliative care or referral for heart transplant work-up. -Continue oxygen -Continue monitor telemetry -Morphine for pain control -S/p CARA with large TV endocarditis Bacteremia -High-grade MSSA infection from PICC line. Repeat cultures also positive. -PICC line has been removed. -Infectious disease consulted appreciate recommendations. Continue antibiotics. S/P CARA 10/14/17 Patient with MSSA high grade bactermia 2/2 PICC line Recent osteo 2 nd toe sp amputation Consult podiatry for evaluation patient can't have MRI because has AICD Plan for AICD removal by Dr Aguirre Patient will need AICD associated TV endocarditis sp AICD placement in May + CARA ( 10/14/17) with large vegetation 20x28 mm cont oxacillin per ID Dr Tinsley ID ff needs AICD removal per Id recommendations, who notified cardiology Dr Aguirre EP Sepsis, resolved -Patient did meet criteria on presentation with leukocytosis, lactic acidosis, source of infection -Patient was started on empiric antibiotics include vancomycin, Zosyn, now on oxacillin as patient with MSSA bacteremia -Patient was pancultured and found to have bacteremia as above Anxiety The pt has episodes of shaking and respiratory distress that may be s/t anxiety. - Ativan as needed. Diabetic ketoacidosis, uncontrolled diabetes, improved -Status post insulin drip -Hemoglobin A1c 8.2 -Continue sliding scale insulin Metabolic/toxic encephalopathy, likely secondary to infection, diabetic ketoacidosis, resolved -Continue monitor neuro checks Lactic acid acidosis, resolved -Multifactorial with diabetic ketoacidosis and sepsis Acute renal failure superimposed on chronic kidney disease stage II, improved -BRIANA inhibitor has been held -Avoid nephrotoxins Muscle spasm the back. Start Flexeril DVT prevention -Patient is on heparin IV Discussed with the patient, nurse, ID specialist Dr Henao Per Dr. Henao cardiology patient needs a heart transplant. Case management consulted Also palliative care consulted for goals of care S/P CARA with large TV endocarditis. Per ID indication Dr Tinsley AICD to be removed. Plan for AICD removal by Dr Aguirre. Patient to have life vest. If remains afebrile for 2 weeks might consider AICD placement in the opposite side of chest. Patient will also need longterm IV antibiotic. Patient also has likely osteo, podiatry consulted Also might need evaluation from [facility] surgery Results - Labs CBC & Chem 7: 10/14/17 03:34 10/14/17 03:34 Laboratory Results - last 24 hr 10/15/17 10/15/17 10/15/17 11:53 16:37 20:12 APTT POC Glucose 287 H 195 H 331 H 10/16/17 10/16/17 06:03 08:48 APTT 64.0 H POC Glucose 213 H Microbiology 10/11/17 02:20 Blood - Peripheral Aerobic Blood Culture - Preliminary No growth in 4 days 10/11/17 02:20 Blood - Peripheral Anaerobic Blood Culture - Preliminary No growth in 4 days 10/11/17 02:25 Blood - Peripheral Aerobic Blood Culture - Preliminary No growth in 4 days 10/11/17 02:25 Blood - Peripheral Anaerobic Blood Culture - Preliminary No growth in 4 days - Imaging Impressions Foot X-Ray 10/15/17 00:00 CONCLUSION: 1. Status post amputation of the second digit. 2. Mild osteoarthritic change. 3. No evidence to suggest osteomyelitis. - Procedures Awaiting echocardiogram
[2017-10-16 12:17] LABS: INR 1.2 Ratio; Prothrombin Time 11.8 sec (9.8-11.6)
[2017-10-16] MEDS ORDERED: ceFAZolin Inj 2,000 MG in Sodium Chlor 0.9% Inj 80 ML IV.SIG SCH (16:00)
--- NOTE | 2017-10-16 16:00 | P.PNCA ---
Subjective Interval history: alert in nad Physical Exam Vital signs: Vital Signs 10/15/17 16:00 10/15/17 17:00 10/15/17 18:00 Temperature Pulse Rate 89 87 86 Respiratory Rate Blood Pressure Pulse Oximetry 10/15/17 19:00 10/15/17 20:00 10/15/17 21:00 Temperature 98.5 F Pulse Rate 86 72 66 Respiratory Rate 16 Blood Pressure 121/68 Pulse Oximetry 10/15/17 22:00 10/15/17 23:00 10/16/17 00:00 Temperature Pulse Rate 70 97 H 97 H Respiratory Rate 16 Blood Pressure Pulse Oximetry 10/16/17 01:00 10/16/17 02:00 10/16/17 03:00 Temperature 98.4 F Pulse Rate 93 H 79 86 Respiratory Rate 18 Blood Pressure 117/66 Pulse Oximetry 10/16/17 04:00 10/16/17 05:00 10/16/17 06:00 Temperature Pulse Rate 86 88 85 Respiratory Rate Blood Pressure Pulse Oximetry 10/16/17 07:00 10/16/17 08:00 10/16/17 08:54 Temperature 98.5 F Pulse Rate 88 84 Respiratory Rate 18 Blood Pressure 118/67 Pulse Oximetry 95 93 L 10/16/17 09:00 10/16/17 10:00 10/16/17 10:04 Temperature Pulse Rate 87 85 84 Respiratory Rate Blood Pressure Pulse Oximetry 10/16/17 11:00 10/16/17 12:00 10/16/17 13:00 Temperature 98.5 F Pulse Rate 75 84 80 Respiratory Rate 18 Blood Pressure 109/66 Pulse Oximetry 97 10/16/17 14:00 10/16/17 15:00 10/16/17 15:55 Temperature 98.2 F Pulse Rate 79 79 78 Respiratory Rate 18 Blood Pressure 106/64 Pulse Oximetry 96 Intake & Output 10/15/17 10/16/17 10/16/17 18:59 06:59 18:59 Intake Total 1410 / 1410 1120 / 1120 450 / 450 Output Total 700 / 700 Balance 1410 / 1410 420 / 420 450 / 450 Weight 85.389 kg Intake: IV 450 / 450 400 / 400 450 / 450 Heparin/D5W 25,000 U/250 mL 25, 250 / 250 250 / 250 000 unit In 250 ml @ Per Protocol IV.CONT TITRATE PRN Rx #:[id number] Prostaphlin Inj 2 GM In NS Inj 200 / 200 400 / 400 200 / 200 100 ML @ 200 mls/hr IV.SIG Q4H JEFE Rx#:[id number] Oral 960 / 960 720 / 720 Output: Urine 700 / 700 Other: # Voids 2 Date of Last Bowel Movement 10/15/17 Assessment and Plan - Assessment (1) ACS (acute coronary syndrome) Code(s): I24.9 - Acute ischemic heart disease, unspecified Status: Acute (2) Acidosis, lactic Code(s): E87.2 - Acidosis Status: Acute (3) DKA (diabetic ketoacidoses) Code(s): E13.10 - Other specified diabetes mellitus with ketoacidosis without coma Status: Acute (4) Frequent unifocal PVCs Code(s): I49.3 - Ventricular premature depolarization Status: Acute - Plan consult case management for transfer for heart transplant eval and palliative care, d/w Dr Fernando and nurse; he appears to assymptomatic when not tachycardic , prognosis is poor 2.) SBE - lead and icd extraction per Dr Aguirre, abs per ID, then life vest
--- NOTE | 2017-10-16 16:30 | P.PNID ---
Subjective Remarks: no fever, last blood cultures reamin negative Plan to remove AICD Saturday and vest untill next AICD placement cantr have MRI, 3 phase bone scan ordered Antibiotics: oxacillin Past Medical History: R 2nd toe osteo CAD AICD Allergies/Adverse Reactions: Allergies potassium iodide Allergy (Severe, Verified 10/06/17 09:36) Swelling povidone-iodine Allergy (Severe, Verified 10/06/17 09:36) Swelling shellfish derived Allergy (Severe, Verified 10/06/17 09:36) Swelling sodium iodide Allergy (Severe, Verified 10/06/17 09:36) Swelling sodium iodide Allergy (Severe, Verified 10/06/17 09:36) Swelling Objective Vital Signs 10/15/17 17:00 10/15/17 18:00 10/15/17 19:00 Temperature 98.5 F Pulse Rate 87 86 86 Respiratory Rate 16 Blood Pressure 121/68 Pulse Oximetry 10/15/17 20:00 10/15/17 21:00 10/15/17 22:00 Temperature Pulse Rate 72 66 70 Respiratory Rate Blood Pressure Pulse Oximetry 10/15/17 23:00 10/16/17 00:00 10/16/17 01:00 Temperature Pulse Rate 97 H 97 H 93 H Respiratory Rate 16 Blood Pressure Pulse Oximetry 10/16/17 02:00 10/16/17 03:00 10/16/17 04:00 Temperature 98.4 F Pulse Rate 79 86 86 Respiratory Rate 18 Blood Pressure 117/66 Pulse Oximetry 10/16/17 05:00 10/16/17 06:00 10/16/17 07:00 Temperature 98.5 F Pulse Rate 88 85 88 Respiratory Rate 18 Blood Pressure 118/67 Pulse Oximetry 95 10/16/17 08:00 10/16/17 08:54 10/16/17 09:00 Temperature Pulse Rate 84 87 Respiratory Rate Blood Pressure Pulse Oximetry 93 L 10/16/17 10:00 10/16/17 10:04 10/16/17 11:00 Temperature 98.5 F Pulse Rate 85 84 75 Respiratory Rate 18 Blood Pressure 109/66 Pulse Oximetry 97 10/16/17 12:00 10/16/17 13:00 10/16/17 14:00 Temperature Pulse Rate 84 80 79 Respiratory Rate Blood Pressure Pulse Oximetry 10/16/17 15:00 10/16/17 15:55 Temperature 98.2 F Pulse Rate 79 78 Respiratory Rate 18 Blood Pressure 106/64 Pulse Oximetry 96 Intake & Output 10/15/17 10/16/17 10/16/17 18:59 06:59 18:59 Intake Total 1410 / 1410 1120 / 1120 450 / 450 Output Total 700 / 700 Balance 1410 / 1410 420 / 420 450 / 450 Weight 85.389 kg Intake: IV 450 / 450 400 / 400 450 / 450 Heparin/D5W 25,000 U/250 mL 25, 250 / 250 250 / 250 000 unit In 250 ml @ Per Protocol IV.CONT TITRATE PRN Rx #:[id number] Prostaphlin Inj 2 GM In NS Inj 200 / 200 400 / 400 200 / 200 100 ML @ 200 mls/hr IV.SIG Q4H JEFE Rx#:[id number] Oral 960 / 960 720 / 720 Output: Urine 700 / 700 Other: # Voids 2 Date of Last Bowel Movement 10/15/17 10/11/17 02:20 Blood - Peripheral Aerobic Blood Culture - Final No growth in 5 days 10/11/17 02:20 Blood - Peripheral Anaerobic Blood Culture - Final No growth in 5 days 10/11/17 02:25 Blood - Peripheral Aerobic Blood Culture - Final No growth in 5 days 10/11/17 02:25 Blood - Peripheral Anaerobic Blood Culture - Final No growth in 5 days Lab - Chemistry Results 10/14/17 10/14/17 10/15/17 17:12 19:17 08:07 POC Glucose 279 H 351 H 187 H 10/15/17 10/15/17 10/15/17 11:53 16:37 20:12 POC Glucose 287 H 195 H 331 H 10/16/17 10/16/17 08:48 12:26 POC Glucose 213 H 207 H Imaging: ITS Impressions Abdomen/Pelvis CT 10/06/17 00:00 CONCLUSION: 1. No acute abnormality seen. 2. Increased density at the posterior lower lobes likely related to mild atelectasis. 3. Scattered atherosclerotic calcifications throughout the arterial system. 4. Degenerative and postsurgical change in the lumbar spine. Chest X-Ray 10/09/17 09:27 CONCLUSION: 1. Cardiomegaly with new mild positive fluid balance. Foot X-Ray 10/15/17 00:00 CONCLUSION: 1. Status post amputation of the second digit. 2. Mild osteoarthritic change. 3. No evidence to suggest osteomyelitis. Physical Exam: GENERAL: NAD SKIN: Warm and dry. CARDIOVASCULAR: Regular rate and rhythm. AICD in place, no skin changes, well healed incision RESPIRATORY: No accessory muscle use. Clear to auscultation. Breath sounds equal bilaterally. GASTROINTESTINAL: Abdomen soft, non-tender, nondistended. Hepatic and splenic margins not palpable. MUSCULOSKELETAL: Extremities without clubbing, cyanosis, or edema. No obvious deformities. dressing in lace R foot NEUROLOGICAL: Awake and alert. No obvious cranial nerve deficits. Motor grossly within normal limits. Five out of 5 muscle strength in the arms and legs. Normal speech. PSYCHIATRIC: Appropriate mood and affect; insight and judgment normal. Assessment and Plan (1) Staphylococcal sepsis Status: Acute Code(s): A41.2 - Sepsis due to unspecified staphylococcus (2) Staphylococcus aureus bacteremia with sepsis Status: Acute Code(s): A41.01 - Sepsis due to Methicillin susceptible Staphylococcus aureus - Plan MSSAhigh grade bactermia 2/2 PICC line Recent osteo 2 nd toe sp amputaiton AICD associated TV endocarditis sp AICD placement in May + CARA with veg'n 20x28 mm Non healing R 2nd toe amputation site: neg Xray cont oxacillin - monitoring parameters: CBC, CMP at least weekly for AICD removal and life vest AICD can be placed on contralateral site after 2 wweeks of IV abx providing blood clx remian negative and no active infx in R foot 3 phase bone scan vasc w/u was done 2 mos ago and negative CTA\ Probably small vessel disease dw RN dw family @ b/s
[2017-10-16] MEDS: LORazepam 1 MG Tablet PO PRN (20:49)
[2017-10-16] MEDS: Hypromellose 0.3% Opth Gel 10 GM Bottle EACH EYE SCH (21:00)
--- NOTE | 2017-10-16 22:37 | MB ---
cc: Glendy Wetzel DATE: 10/16/2017 PRIMARY CARE PHYSICIAN: Michael Jacques MD HISTORY OF PRESENT ILLNESS: The patient apparently presented to the emergency room with increasing abdominal pain, nausea, vomiting, unable to take his home medications, chills, fever, generalized tremors. Patient was found to have acute kidney injury with a creatinine of 1.40. Troponin was 1.86. EKG showed nonspecific ST changes. Apparently, he has been off his Eliquis since he was unable to afford $500 a month for his medication. Blood sugar was greater than 400 and his lactic acid was 6.4. He was resuscitated with IV fluids. The patient was admitted with sepsis, lactic acidosis, acute kidney injury. The patient's blood cultures grew Staphylococcus aureus in 3/4 bottles on 10/07/2017. Repeat blood cultures on 10/11/2017 have been negative. He has been on IV antibiotics, followed by Infectious Disease. He has an extensive past medical history. He is currently on oxacillin. PAST MEDICAL HISTORY: Amputated toe, CHF, COPD, coronary artery disease, diabetes mellitus, hypertension, hepatitis C, hyperlipidemia, prior ME, osteomyelitis of the toe, peripheral arterial disease, traumatic amputation, second toe of the right foot. PAST SURGICAL HISTORY: Include an AICD, appendectomy, history of cardiac catheterization, back surgery. He has had a history of coronary artery bypass graft x 3 in the past. He had the right second toe amputation 6 weeks ago and IV antibiotics for 6 weeks. He had an ICD placed in 2007. Patient has also been seen and evaluated by Dr. Aguirre, after the patient underwent an echocardiogram that showed an EF of 25-30%, moderate MR, moderate to severe tricuspid regurgitation. CARA showed 28 mm mass adjacent to the tricuspid valve leaflet and ICD lead. We were consulted by Dr. Aguirre for ICD removal and epicardial lead extraction. ALLERGIES: POTASSIUM IODIDE, BETADINE, SHELLFISH. HOME MEDICATIONS: Include: 1. Glyburide. 2. Lisinopril. 3. Magnesium oxide. 4. Metformin. 5. Nitroglycerin. 6. Pravachol. 7. Spironolactone. 8. Atorvastatin. 9. Coreg. CURRENT MEDICATIONS: Include: 1. Aspirin. 2. Lipitor. 3. Coreg. 4. Lasix. 5. Heparin drip. 6. Levemir. FAMILY HISTORY: Mother had lung cancer. Father CVA. SOCIAL HISTORY: Former smoker, smoked for 40 years. Drinks rarely. REVIEW OF SYSTEMS: As above in the HPI. PHYSICAL EXAMINATION: VITAL SIGNS: Blood pressure 106/60, heart rate of 80, temperature max 98.2, room air sat 96. GENERAL: The patient is awake, alert, in no acute distress. HEENT: Head is normocephalic, atraumatic. Pupils equal and reactive. Oral mucosa pink, moist. NECK: Supple. No JVD. HEART: S1, S2, soft systolic murmur. LUNGS: Diminished in the bases, otherwise clear to auscultation. No wheezes, rales or rhonchi. ABDOMEN: Soft, nontender. No masses or organomegaly. EXTREMITIES: Reveal post-amputation of the second digit, right foot. IMPRESSION: Patient with high-grade MSSA infection from a PICC line. Status-post CARA with large tricuspid valve endocarditis. Again, the films have been evaluated by Dr. John Mcguire and plan is for ICD removal and lead extraction. I will plan for Saturday. TOYA Kauffman/dar , 03:32 PM , 03:43 PM
[2017-10-17] MEDS: Heparin Drip 25,000 UNIT/250 ML BAG IV.CONT PRN ×2 (01:45→18:51)
[2017-10-17 01:55] LABS: Bilirubin,Urine Negative (Negative); Clarity,Urine Clear (Clear); Color,Urine Yellow (Yellw/Straw); Glucose,Urine (UA) 500 or Greater mg/dL (Negative); Leukocyte Esterase,Urine Negative (Negative); Nitrite,Urine Negative (Negative); Specific Gravity,Urine 1.008 (1.002-1.035); Urobilinogen,Urine 4 or Greater mg/dL (Less than 2)
[2017-10-17 04:36] LABS: Activated Partial Thrombo Time 48.5 sec (24.3-30.1); INR 1.1 Ratio; Prothrombin Time 11.5 sec (9.8-11.6)
[2017-10-17] MEDS: Insulin Detemir Inj 1,000 UNIT/10 ML Vial SQ SCH (08:30)
[2017-10-17] MEDS: Insulin NovoLOG Aspart Correctional Sugar Inj SQ SCH ×3 (08:30→17:29)
[2017-10-17] MEDS: Polyethylene Glycol 3350 17 GM Packet PO SCH (08:31)
[2017-10-17] MEDS: Senna/Docusate Sodium 8.6/50 MG Tablet PO SCH ×2 (08:32→21:42)
[2017-10-17] MEDS: Carvedilol 6.25 MG Tablet PO SCH ×2 (08:33→21:42)
[2017-10-17] MEDS: Furosemide 20 MG Tablet PO SCH (08:34)
[2017-10-17] MEDS: Collagenase Oint 30 GM Tube TOPICAL SCH (08:35)
--- NOTE | 2017-10-17 13:33 | NM ---
EXAM DATE: 10/17/2017 1:18 PM EDT AGE/SEX: 57 years / Male INDICATIONS: Infection in second toe of right foot. CLINICAL DATA: This is the patient's initial encounter. Patient reports that signs and symptoms have been present for 1 day and indicates a pain score of 4/10. MEDICAL/SURGICAL HISTORY: Hepatitis C. Congestive heart failure. Diabetes mellitus type II. COPD. Pacemaker. Amputated toe. COMPARISON: [facility] [place], FOOT LIMITED RIGHT 2V, 10/15/2017. . TECHNIQUE: Bone scan was performed in sagittal, axial and coronal planes. Attenuation correction was performed with computed tomography and both the attenuation correction and non-attenuation corrected data sets were reviewed. PRIOR BONE SCANS: No correlative bone scan available for comparison. DOSE: 31.2 mCi Tc99m MDP IV IMAGING: SPECT/CT imaging with fusion was performed. RADIATION DOSE: 1.90 CTDIvol(mGy) FINDINGS: The blood flow images demonstrate increased blood flow to the right foot compared to the left. The bl ood pool images demonstrate hyperemia and increased diffuse activity in the distal right foot compare d to the left. The delayed images demonstrate a small focus of intense uptake in the second metatarsa l head. There is milder uptake in the third proximal interphalangeal joint at site of degenerative ch lima. The patient noted to be status post amputation of the second digit to the level of the metatars al head. 1. Abnormal intense focal activity in the head of the second metatarsal of concern for osteomyelitis . 2. Milder activity in the third proximal interphalangeal joint region corresponding to degenerative change. 3. Status post amputation of the second digit to he level of the metatarsal. Electronically signed by: Nick Agee MD 10/17/2017 1:31 PM EDT
--- NOTE | 2017-10-17 14:10 | P.PNCV ---
- Note Subjective/Hospital Course: 57/ male presented to the emergency room with increasing abdominal pain, nausea , vomiting, unable to take his home medications, chills, fever, generalized tremors. Patient was found to have acute kidney injury with a creatinine of 1.40. Troponin was 1.86. EKG showed nonspecific ST changes. Apparently, he has been off his Eliquis since he was unable to afford his medication. Blood sugar was greater than 400 and his lactic acid was 6.4. He was resuscitated with IV fluids. The patient was admitted with sepsis, lactic acidosis, acute kidney injury. The patient's blood cultures grew Staphylococcus aureus in 3/4 bottles on 2017. Repeat blood cultures on 10/11/2017 have been negative. He has been on IV antibiotics, followed by Infectious Disease. PAST MEDICAL HISTORY: Amputated toe, CHF, COPD, coronary artery disease, diabetes mellitus, hypertension, hepatitis C, hyperlipidemia, prior NV, osteomyelitis of right second toe , peripheral arterial disease, traumatic amputation, AICD, coronary artery bypass graft x 3, He had the right second toe amputation 6 weeks ago and IV antibiotics for 6 weeks. He had an ICD placed in 2007. CARA showed 28 mm mass adjacent to the tricuspid valve leaflet and ICD lead. 10/17 pt doing fair, scheduled for ICD removal and epicardial lead extraction in am Objective: Vital Signs - 24 hr 10/16/17 15:00 10/16/17 15:55 10/16/17 17:00 Temperature 98.2 F Pulse Rate 79 78 74 Respiratory Rate 18 Blood Pressure 106/64 Pulse Oximetry 96 10/16/17 17:45 10/16/17 18:00 10/16/17 19:00 Temperature 98 F Pulse Rate 92 H 84 Respiratory Rate Blood Pressure 123/63 Pulse Oximetry 96 98 10/16/17 20:00 10/16/17 21:00 10/16/17 22:00 Temperature Pulse Rate 86 88 86 Respiratory Rate Blood Pressure Pulse Oximetry 10/16/17 23:00 10/17/17 00:00 10/17/17 01:00 Temperature 99.7 F H Pulse Rate 87 86 84 Respiratory Rate Blood Pressure 111/64 Pulse Oximetry 97 10/17/17 02:00 10/17/17 03:00 10/17/17 04:00 Temperature 99.3 F Pulse Rate 86 87 85 Respiratory Rate Blood Pressure 104/57 L Pulse Oximetry 97 10/17/17 05:00 10/17/17 06:00 10/17/17 07:00 Temperature 98.2 F Pulse Rate 85 78 72 Respiratory Rate 16 Blood Pressure 105/65 Pulse Oximetry 96 10/17/17 08:00 10/17/17 09:00 10/17/17 10:00 Temperature Pulse Rate 87 78 84 Respiratory Rate Blood Pressure Pulse Oximetry 10/17/17 11:00 10/17/17 12:00 10/17/17 13:48 Temperature 98.6 F Pulse Rate 75 82 82 Respiratory Rate 16 Blood Pressure 118/68 Pulse Oximetry 96 GENERAL: SKIN: Warm and dry. HEAD: Normocephalic. EYES: No scleral icterus. No injection or drainage. NECK: Supple, trachea midline. No JVD or lymphadenopathy. CARDIOVASCULAR: Regular rate and rhythm without murmurs, gallops, or rubs. RESPIRATORY: Breath sounds equal bilaterally. No accessory muscle use. GASTROINTESTINAL: Abdomen soft, non-tender, nondistended. MUSCULOSKELETAL: No cyanosis, or edema. BACK: Nontender without obvious deformity. No CVA tenderness. Labs: Laboratory Results - last 12 hr 10/17/17 10/17/17 10/17/17 01:20 03:40 07:55 PT 11.5 INR 1.1 APTT 48.5 H D POC Glucose 185 H Urine Color Yellow Urine Clarity Clear Urine pH 6.0 Ur Specific [place] 1.008 Urine Protein Negative Urine Glucose (UA) 500 or greater Urine Ketones Negative Urine Occult Blood Negative Urine Nitrate Negative Urine Bilirubin Negative Urine Urobilinogen 4 or greater Ur Leukocyte Esterase Negative Urine RBC 1 Urine WBC 1 Micro UA Comment Culture not ind Urine Culture Comments Culture not ind 10/17/17 12:12 PT INR APTT POC Glucose 283 H Urine Color Urine Clarity Urine pH Ur Specific [place] Urine Protein Urine Glucose (UA) Urine Ketones Urine Occult Blood Urine Nitrate Urine Bilirubin Urine Urobilinogen Ur Leukocyte Esterase Urine RBC Urine WBC Micro UA Comment Urine Culture Comments Result Diagrams: 10/14/17 03:34 10/14/17 03:34 for ICD removal and epicardial lead extraction. in am
--- NOTE | 2017-10-17 15:05 | P.PN ---
Physical Exam Vital signs: Vital Signs 10/16/17 15:55 10/16/17 17:00 10/16/17 17:45 Temperature Pulse Rate 78 74 Respiratory Rate Blood Pressure Pulse Oximetry 96 10/16/17 18:00 10/16/17 19:00 10/16/17 20:00 Temperature 98 F Pulse Rate 92 H 84 86 Respiratory Rate Blood Pressure 123/63 Pulse Oximetry 98 10/16/17 21:00 10/16/17 22:00 10/16/17 23:00 Temperature 99.7 F H Pulse Rate 88 86 87 Respiratory Rate Blood Pressure 111/64 Pulse Oximetry 97 10/17/17 00:00 10/17/17 01:00 10/17/17 02:00 Temperature Pulse Rate 86 84 86 Respiratory Rate Blood Pressure Pulse Oximetry 10/17/17 03:00 10/17/17 04:00 10/17/17 05:00 Temperature 99.3 F Pulse Rate 87 85 85 Respiratory Rate Blood Pressure 104/57 L Pulse Oximetry 97 10/17/17 06:00 10/17/17 07:00 10/17/17 08:00 Temperature 98.2 F Pulse Rate 78 72 87 Respiratory Rate 16 Blood Pressure 105/65 Pulse Oximetry 96 10/17/17 09:00 10/17/17 10:00 10/17/17 11:00 Temperature 98.6 F Pulse Rate 78 84 75 Respiratory Rate 16 Blood Pressure 118/68 Pulse Oximetry 96 10/17/17 12:00 10/17/17 13:48 10/17/17 14:00 Temperature Pulse Rate 82 82 77 Respiratory Rate Blood Pressure Pulse Oximetry Intake & Output 10/16/17 10/17/17 10/17/17 18:59 06:59 18:59 Intake Total 1270 / 1270 747 / 747 200 / 200 Output Total 1400 / 1400 1650 / 1650 Balance -130 / -130 -903 / -903 200 / 200 Weight 83 kg Intake: IV 550 / 550 507 / 507 200 / 200 Heparin/D5W 25,000 U/250 mL 25, 250 / 250 307 / 307 000 unit In 250 ml @ Per Protocol IV.CONT TITRATE PRN Rx #:[id number] Prostaphlin Inj 2 GM In NS Inj 200 / 200 100 ML @ 200 mls/hr IV.SIG Q4H JEFE Rx#:[id number] Prostaphlin Inj 2 GM In NS Inj 100 / 100 200 / 200 200 / 200 100 ML @ 200 mls/hr IV.SIG Q4H JEFE Rx#:[id number] Oral 720 / 720 240 / 240 Output: Urine 1400 / 1400 1650 / 1650 Other: Date of Last Bowel Movement 10/16/17 10/16/17 # Bowel Movements 1 Narrative: Subjective Interval history: F/up NSTEMI, Bacteremia MSSA, Endocarditis TV Feels tired. NO cp, sob, n/v/d/c. Physical Exam GENERAL: 57-year-old male, well-developed, well-nourished, in no acute distress. CARDIAC: Regular rhythm, regular rate. No MRG LUNGS: Clear to auscultation bilaterally. No wheeze, rhonchi or rales. ABDOMEN: Bowel sounds present. No distention. EXTREMITIES: No edema. Bandage on right foot, CDI. NEUROLOGY: Awake and alert. Cranial nerves II through XII grossly intact. Muscle strength 5/5 in upper and lower extremities bilaterally. Assessment and Plan Non-ST elevated myocardial infarction Systolic CHF with severely reduced EF of 25-30% -Patient does have increased risk factors to include age, male, hypertension, hyperlipidemia, coronary artery disease, cardiomyopathy -Patient did have serial cardiac enzymes performed which did show a significant elevation up to 7.05 now going down to 2.63 -EKG does show acute changes with inverted T waves in inferior leads and ST depressions in the lateral leads -Patient is Coreg, statin, will start aspirin, nitroglycerin as needed -Cardiology has been consulted and says he is not a candidate for cardiac catheterization. They recommend palliative care or referral for heart transplant work-up. -Continue oxygen -Continue monitor telemetry -Morphine for pain control -S/p CARA with large TV endocarditis Bacteremia -High-grade MSSA infection from PICC line. Repeat cultures also positive. -PICC line has been removed. -Infectious disease consulted appreciate recommendations. Continue antibiotics. S/P CARA 10/14/17 Patient with MSSA high grade bactermia 2/2 PICC line Recent osteo 2 nd toe sp amputation Consult podiatry for evaluation patient can't have MRI because has AICD Plan for AICD removal by Dr Aguirre Patient will need AICD associated TV endocarditis sp AICD placement in May + CARA ( 10/14/17) with large vegetation 20x28 mm cont oxacillin per ID Dr Tinsley ID ff needs AICD removal per Id recommendations, who notified cardiology Dr Aguirre EP Sepsis, resolved -Patient did meet criteria on presentation with leukocytosis, lactic acidosis, source of infection -Patient was started on empiric antibiotics include vancomycin, Zosyn, now on oxacillin as patient with MSSA bacteremia -Patient was pancultured and found to have bacteremia as above Anxiety The pt has episodes of shaking and respiratory distress that may be s/t anxiety. - Ativan as needed. Diabetic ketoacidosis, uncontrolled diabetes, improved -Status post insulin drip -Hemoglobin A1c 8.2 -Continue sliding scale insulin Metabolic/toxic encephalopathy, likely secondary to infection, diabetic ketoacidosis, resolved -Continue monitor neuro checks Lactic acid acidosis, resolved -Multifactorial with diabetic ketoacidosis and sepsis Acute renal failure superimposed on chronic kidney disease stage II, improved -BRIANA inhibitor has been held -Avoid nephrotoxins Muscle spasm the back. Start Flexeril DVT prevention -Patient is on heparin IV Discussed with the patient, nurse, ID specialist Dr Henao Per Dr. Henao cardiology patient needs a heart transplant. Case management consulted Also palliative care consulted for goals of care S/P CARA with large TV endocarditis. Per ID indication Dr Tinsley AICD to be removed. Plan for AICD removal by Dr Aguirre. Patient to have life vest. If remains afebrile for 2 weeks might consider AICD placement in the opposite side of chest. Patient will also need senior care IV antibiotic. Patient also has likely osteo, podiatry consulted Also might need evaluation from [facility] Results - Labs CBC & Chem 7: 10/14/17 03:34 10/14/17 03:34 Laboratory Results - last 24 hr 10/16/17 10/16/17 10/17/17 17:31 20:56 01:20 PT INR APTT POC Glucose 221 H 251 H Urine Color Yellow Urine Clarity Clear Urine pH 6.0 Ur Specific [place] 1.008 Urine Protein Negative Urine Glucose (UA) 500 or greater Urine Ketones Negative Urine Occult Blood Negative Urine Nitrate Negative Urine Bilirubin Negative Urine Urobilinogen 4 or greater Ur Leukocyte Esterase Negative Urine RBC 1 Urine WBC 1 Micro UA Comment Culture not ind Urine Culture Comments Culture not ind 10/17/17 10/17/17 10/17/17 03:40 07:55 12:12 PT 11.5 INR 1.1 APTT 48.5 H D POC Glucose 185 H 283 H Urine Color Urine Clarity Urine pH Ur Specific [place] Urine Protein Urine Glucose (UA) Urine Ketones Urine Occult Blood Urine Nitrate Urine Bilirubin Urine Urobilinogen Ur Leukocyte Esterase Urine RBC Urine WBC Micro UA Comment Urine Culture Comments - Imaging Impressions SPECT Scan-Bone NM 10/17/17 00:00 CONCLUSION: - Procedures Awaiting echocardiogram
--- NOTE | 2017-10-17 16:55 | P.PNPAL ---
Reason for Visit Reason for visit: a. To assist with evaluation and management of symptoms including: anxiety, weakness b. To assist medical decision maker(s) with: better understanding of current medical conditions; weighing benefits/burdens of medical treatment options; making medical treatment decisions. Subjective Subjective/Interval History: Patient seen today to follow-up on symptom management of anxiety and weakness. Patient scheduled to undergo extraction of ICD and lead wire by Dr. Mcguire in a.m. secondary to vegetation on the tricuspid valve and blood cultures positive for MSSA. He remains on oxacillin. He underwent three-phase bone scan today of the right foot to evaluate for possible osteomyelitis, which was positive. Patient is aware that he faces the potential of multiple complications to include pulmonary embolus, lethal cardiac arrhythmias and possible cardiac arrest. These realizations are contributing to his overall anxiety. He notes nighttime awakening with anxiety regarding his multiple comorbidities, potential complications and risk factors related to his end-stage cardiac disease and upcoming surgery. He continues to have generalized weakness and lethargy, likely related to his poor cardiac function, infection and recent foot surgery. He can ambulate to the bathroom in his room but is otherwise an active secondary to generalized weakness. . Family/Friend Interactions: Spoke with patient and his sister Michelle at bedside regarding the upcoming surgery. They had multiple questions regarding risk factors associated with different scenarios to include not doing the surgery, risks associated with doing the surgery, postoperative care, implications for continued risk factors and life expectancy. Reviewed use of antibiotics, function of the ICD, risk associated with not explanting the ICD, risks surrounding surgery and extraction of ICD as well as potential risks with reimplanting the ICD, if that is the patient's choice. He asked about hospice and what services they would provide and that was reviewed. I did emphasize that his most important intervention at this time was to pursue finishing the Medicaid application and submitting all the paperwork to allow him the best options for treatment ongoing. He states that his sister is assisting him with that and I recommended close follow-up with his contact at [employer] to expedite the process. He also requested a consultation with hospice for information only at this time to allow him to consider all of his options. Consult will be requested. . Advance Directives Health Care Surrogate Name and Number: Lisseth Drake Objective Vital Signs: Vital Signs 10/16/17 17:00 10/16/17 17:45 10/16/17 18:00 Temperature Pulse Rate 74 92 H Respiratory Rate Blood Pressure Pulse Oximetry 96 10/16/17 19:00 10/16/17 20:00 10/16/17 21:00 Temperature 98 F Pulse Rate 84 86 88 Respiratory Rate Blood Pressure 123/63 Pulse Oximetry 98 10/16/17 22:00 10/16/17 23:00 10/17/17 00:00 Temperature 99.7 F H Pulse Rate 86 87 86 Respiratory Rate Blood Pressure 111/64 Pulse Oximetry 97 10/17/17 01:00 10/17/17 02:00 10/17/17 03:00 Temperature 99.3 F Pulse Rate 84 86 87 Respiratory Rate Blood Pressure 104/57 L Pulse Oximetry 97 10/17/17 04:00 10/17/17 05:00 10/17/17 06:00 Temperature Pulse Rate 85 85 78 Respiratory Rate Blood Pressure Pulse Oximetry 10/17/17 07:00 10/17/17 08:00 10/17/17 09:00 Temperature 98.2 F Pulse Rate 72 87 78 Respiratory Rate 16 Blood Pressure 105/65 Pulse Oximetry 96 10/17/17 10:00 10/17/17 11:00 10/17/17 12:00 Temperature 98.6 F Pulse Rate 84 75 82 Respiratory Rate 16 Blood Pressure 118/68 Pulse Oximetry 96 10/17/17 13:48 10/17/17 14:00 10/17/17 15:00 Temperature 98.3 F Pulse Rate 82 77 77 Respiratory Rate 15 Blood Pressure 120/57 L Pulse Oximetry 98 10/17/17 16:00 Temperature Pulse Rate 71 Respiratory Rate Blood Pressure Pulse Oximetry Intake & Output 10/16/17 10/17/17 10/17/17 18:59 06:59 18:59 Intake Total 1270 / 1270 747 / 747 300 / 300 Output Total 1400 / 1400 1650 / 1650 Balance -130 / -130 -903 / -903 300 / 300 Weight 182 lb 15.739 oz Intake: IV 550 / 550 507 / 507 300 / 300 Heparin/D5W 25,000 U/250 mL 25, 250 / 250 307 / 307 000 unit In 250 ml @ Per Protocol IV.CONT TITRATE PRN Rx #:[id number] Prostaphlin Inj 2 GM In NS Inj 200 / 200 100 ML @ 200 mls/hr IV.SIG Q4H JEFE Rx#:[id number] Prostaphlin Inj 2 GM In NS Inj 100 / 100 200 / 200 300 / 300 100 ML @ 200 mls/hr IV.SIG Q4H JEFE Rx#:[id number] Oral 720 / 720 240 / 240 Output: Urine 1400 / 1400 1650 / 1650 Other: Date of Last Bowel Movement 10/16/17 10/16/17 # Bowel Movements 1 Physical Exam: CONSTITUTIONAL/GENERAL: This is an adequately nourished patient, in no apparent distress. TUBES/LINES/DRAINS: PIV SKIN: No jaundice, rashes, or lesions. Ecchymoses on upper extremities. No wounds seen anteriorly. Skin temperature appropriate. Not diaphoretic. HEAD: Atraumatic. Normocephalic. EYES: Pupils equal and round and reactive. Extraocular motions intact. No scleral icterus. No injection or drainage. Fundi not examined. ENT: Hearing grossly normal. Nose without bleeding or purulent drainage. Throat without visible erythema, exudates, masses, or lesions. NECK: Trachea midline. Supple, nontender. No palpable thyroid enlargement or nodularity. CARDIOVASCULAR: S1, S2, Regular rate and rhythm without gallops, or rubs. 1/6 ROMMEL. No JVD. Peripheral pulses symmetric. RESPIRATORY/CHEST: Symmetric, unlabored respirations. Clear to auscultation. Breath sounds equal bilaterally. No wheezes, rales, or rhonchi. No tenderness to palpation. GASTROINTESTINAL: Abdomen soft, non-tender, nondistended. No hepato-splenomegaly , or palpable masses. No guarding. Bowel sounds present. GENITOURINARY: Without palpable bladder distension. MUSCULOSKELETAL: Extremities without clubbing, cyanosis, or edema.Right second toe amputation incision healing without erythema or drainage. No joint tenderness or effusion noted. No calf tenderness. No mottling or clubbing. LYMPHATICS: No palpable cervical or supraclavicular adenopathy. NEUROLOGICAL: Awake and alert. Motor and sensory grossly within normal limits. Follows commands. Cognitively sharp. Moves all extremities. PSYCHIATRIC: Obviously anxious today. no apparent hallucinations or other psychotic thought process. . Diagnostic Tests Laboratory: Laboratory Results - last 72 hr 10/14/17 10/14/17 10/15/17 17:12 19:17 03:33 PT INR APTT 54.7 H POC Glucose 279 H 351 H Urine Color Urine Clarity Urine pH Ur Specific [place] Urine Protein Urine Glucose (UA) Urine Ketones Urine Occult Blood Urine Nitrate Urine Bilirubin Urine Urobilinogen Ur Leukocyte Esterase Urine RBC Urine WBC Micro UA Comment Urine Culture Comments Blood Type Blood Type Recheck Antibody Screen 10/15/17 10/15/17 10/15/17 08:07 11:53 16:37 PT INR APTT POC Glucose 187 H 287 H 195 H Urine Color Urine Clarity Urine pH Ur Specific [place] Urine Protein Urine Glucose (UA) Urine Ketones Urine Occult Blood Urine Nitrate Urine Bilirubin Urine Urobilinogen Ur Leukocyte Esterase Urine RBC Urine WBC Micro UA Comment Urine Culture Comments Blood Type Blood Type Recheck Antibody Screen 10/15/17 10/16/17 10/16/17 20:12 06:03 08:48 PT INR APTT 64.0 H POC Glucose 331 H 213 H Urine Color Urine Clarity Urine pH Ur Specific [place] Urine Protein Urine Glucose (UA) Urine Ketones Urine Occult Blood Urine Nitrate Urine Bilirubin Urine Urobilinogen Ur Leukocyte Esterase Urine RBC Urine WBC Micro UA Comment Urine Culture Comments Blood Type Blood Type Recheck Antibody Screen 10/16/17 10/16/17 10/16/17 11:50 11:50 12:26 PT 11.8 H INR 1.2 APTT POC Glucose 207 H Urine Color Urine Clarity Urine pH Ur Specific [place] Urine Protein Urine Glucose (UA) Urine Ketones Urine Occult Blood Urine Nitrate Urine Bilirubin Urine Urobilinogen Ur Leukocyte Esterase Urine RBC Urine WBC Micro UA Comment Urine Culture Comments Blood Type B Positive Blood Type Recheck Required Antibody Screen Negative 10/16/17 10/16/17 10/17/17 17:31 20:56 01:20 PT INR APTT POC Glucose 221 H 251 H Urine Color Yellow Urine Clarity Clear Urine pH 6.0 Ur Specific [place] 1.008 Urine Protein Negative Urine Glucose (UA) 500 or greater Urine Ketones Negative Urine Occult Blood Negative Urine Nitrate Negative Urine Bilirubin Negative Urine Urobilinogen 4 or greater Ur Leukocyte Esterase Negative Urine RBC 1 Urine WBC 1 Micro UA Comment Culture not ind Urine Culture Comments Culture not ind Blood Type Blood Type Recheck Antibody Screen 10/17/17 10/17/17 10/17/17 03:40 07:55 12:12 PT 11.5 INR 1.1 APTT 48.5 H D POC Glucose 185 H 283 H Urine Color Urine Clarity Urine pH Ur Specific [place] Urine Protein Urine Glucose (UA) Urine Ketones Urine Occult Blood Urine Nitrate Urine Bilirubin Urine Urobilinogen Ur Leukocyte Esterase Urine RBC Urine WBC Micro UA Comment Urine Culture Comments Blood Type Blood Type Recheck Antibody Screen 10/17/17 16:36 PT INR APTT POC Glucose 246 H Urine Color Urine Clarity Urine pH Ur Specific [place] Urine Protein Urine Glucose (UA) Urine Ketones Urine Occult Blood Urine Nitrate Urine Bilirubin Urine Urobilinogen Ur Leukocyte Esterase Urine RBC Urine WBC Micro UA Comment Urine Culture Comments Blood Type Blood Type Recheck Antibody Screen Result Diagrams: 10/14/17 03:34 10/14/17 03:34 Microbiology: Microbiology 10/11/17 02:20 Aerobic Blood Culture - Final Blood - Peripheral No growth in 5 days Anaerobic Blood Culture - Final No growth in 5 days 10/11/17 02:25 Aerobic Blood Culture - Final Blood - Peripheral No growth in 5 days Anaerobic Blood Culture - Final No growth in 5 days Imaging: Abdomen/Pelvis CT 10/06/17 00:00 CONCLUSION: 1. No acute abnormality seen. 2. Increased density at the posterior lower lobes likely related to mild atelectasis. 3. Scattered atherosclerotic calcifications throughout the arterial system. 4. Degenerative and postsurgical change in the lumbar spine. Chest X-Ray 10/06/17 08:34 CONCLUSION: No evidence of congestive heart failure. Stable mild cardiomegaly. Otherwise negative exam. Chest X-Ray 10/09/17 09:27 CONCLUSION: 1. Cardiomegaly with new mild positive fluid balance. Foot X-Ray 10/10/17 00:00 CONCLUSION: Status post amputation of the second toe. No acute bony abnormality or destructive changes. Foot X-Ray 10/15/17 00:00 CONCLUSION: 1. Status post amputation of the second digit. 2. Mild osteoarthritic change. 3. No evidence to suggest osteomyelitis. SPECT Scan-Bone NM 10/17/17 00:00 CONCLUSION: The blood flow images demonstrate increased blood flow to the right foot compared to the left. The blood pool images demonstrate hyperemia and increased diffuse activity in the distal right foot compared to the left. The delayed images demonstrate a small focus of intense uptake in the second metatarsal head. There is milder uptake in the third proximal interphalangeal joint at site of degenerative change. The patient noted to be status post amputation of the second digit to the level of the metatarsal head. 1. Abnormal intense focal activity in the head of the second metatarsal of concern for osteomyelitis. 2. Milder activity in the third proximal interphalangeal joint region corresponding to degenerative change. 3. Status post amputation of the second digit to he level of the metatarsal. Procedures: 10/14/17 - CARA . Assessment and Plan Pertinent Non-Medical Issues: Psychosocial:He was born in [place] and moved to [place] before he was 8 years old. 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 He has never been and has no children. He has a significant other whom he has made a healthcare surrogate. He was in the service but did not serve during more time. 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 Legal: Healthcare surrogate, identifying his girlfriend Lisseth as his primary healthcare surrogate and his sister, Michelle Ayon as his alternate. Ethical issues impacting care: None noted. . Important Contacts: Girlfriend: Lisseth Drake Sister: Michelle Ayon , . Prognosis: His prognosis is poor. He has a significantly reduced ejection fraction of 25- 30% with ischemic cardiomyopathy, moderate mitral regurgitation, moderate to severe tricuspid regurgitation, pulmonary hypertension and is not a candidate for revascularization. He has been referred to [facility] several times but declined due to no insurance coverage. This is his sixth admission to [facility] in 2018 for recurrent decline and complication. He has end- stage heart disease and would be hospice appropriate if goals were consistent. . Code Status: Full Code Plan: PLAN: Legal decision maker: He is currently capacitated for making his own decisions, however has designated his girlfriend Lisseth as his primary healthcare surrogate and his sister, Michelle, as his alternate in case he becomes incapacitated. Goals: Aggressive. CODE STATUS: FULL CODE SYMPTOMS: * Anxiety: Patient is developing a better understanding of his current clinical situation to include end-stage heart disease, endocarditis, recurrent infection , osteomyelitis and is now facing surgical decision to explant the device secondary to the infection. He is aware that heart transplant is a unlikely option, secondary to lack of funding and limited availability of organs. He is receiving family support and attempting to complete his insurance application but still faces a difficult medical course with his comorbidities. Hospice consultation for information only has been requested at this time to assist patient in developing options for continuing care after surgical removal of the ICD. * Weakness: Multifactorial to include recent right toe surgery, positive blood cultures, sedentary behavior, activity limiting cardiovascular disease, COPD, history of smoking and progressive debility. This is likely to worsen as he is now scheduled to undergo another procedure to extract the defibrillator and lead. He may also need placement of another PICC line. Options for recovery are limited as he is unable to perform progressive exercise due to his symptomatic limitations. . Palliative care will continue to follow the patient during hospital course as condition evolves, to assist patient/decision-maker with understanding of their medical conditions, weighing benefits/burdens of treatment options, for clarification of goals of treatment. Additionally will assist with any symptoms of palliative concern. . Attestation Attestation: To help prompt me to consider important information that might be impacting today's encounter and assessment, information from prior notes written by myself or my colleagues may have been "brought forward" into today's note. My signature on this note, however, is an attestation that I personally performed the exam, history, and/or decision-making noted today, and, unless otherwise indicated, the interactions with patient, family, and staff as well as the review of records all occurred today. I also attest that the listed assessment and stated plan reflect my best clinical judgment today based on the combination of historical information, prior notes, and today's exam/ interactions. When time spent is documented, it refers only to time spent today by the signer, or if indicated, combined time spent today by collaborating physician/nurse practitioner. .
--- NOTE | 2017-10-17 21:33 | P.PNCA ---
Subjective Interval history: alert in nad Physical Exam Vital signs: Vital Signs 10/16/17 22:00 10/16/17 23:00 10/17/17 00:00 Temperature 99.7 F H Pulse Rate 86 87 86 Respiratory Rate Blood Pressure 111/64 Pulse Oximetry 97 10/17/17 01:00 10/17/17 02:00 10/17/17 03:00 Temperature 99.3 F Pulse Rate 84 86 87 Respiratory Rate Blood Pressure 104/57 L Pulse Oximetry 97 10/17/17 04:00 10/17/17 05:00 10/17/17 06:00 Temperature Pulse Rate 85 85 78 Respiratory Rate Blood Pressure Pulse Oximetry 10/17/17 07:00 10/17/17 08:00 10/17/17 09:00 Temperature 98.2 F Pulse Rate 72 87 78 Respiratory Rate 16 Blood Pressure 105/65 Pulse Oximetry 96 10/17/17 10:00 10/17/17 11:00 10/17/17 12:00 Temperature 98.6 F Pulse Rate 84 75 82 Respiratory Rate 16 Blood Pressure 118/68 Pulse Oximetry 96 10/17/17 13:48 10/17/17 14:00 10/17/17 15:00 Temperature 98.3 F Pulse Rate 82 77 77 Respiratory Rate 15 Blood Pressure 120/57 L Pulse Oximetry 98 10/17/17 16:00 10/17/17 17:00 10/17/17 18:00 Temperature Pulse Rate 71 88 77 Respiratory Rate Blood Pressure Pulse Oximetry Intake & Output 10/17/17 10/17/17 10/18/17 06:59 18:59 06:59 Intake Total 747 / 747 1084 / 1084 Output Total 1650 / 1650 1100 / 1100 Balance -903 / -903 -16 / -16 Weight 83 kg Intake: IV 507 / 507 604 / 604 Heparin/D5W 25,000 U/250 mL 25, 307 / 307 204 / 204 000 unit In 250 ml @ Per Protocol IV.CONT TITRATE PRN Rx #:[id number] Prostaphlin Inj 2 GM In NS Inj 200 / 200 400 / 400 100 ML @ 200 mls/hr IV.SIG Q4H JEFE Rx#:[id number] Oral 240 / 240 480 / 480 Output: Urine 1650 / 1650 1100 / 1100 Other: Date of Last Bowel Movement 10/16/17 Assessment and Plan - Assessment (1) ACS (acute coronary syndrome) Code(s): I24.9 - Acute ischemic heart disease, unspecified Status: Acute (2) Acidosis, lactic Code(s): E87.2 - Acidosis Status: Acute (3) DKA (diabetic ketoacidoses) Code(s): E13.10 - Other specified diabetes mellitus with ketoacidosis without coma Status: Acute (4) Frequent unifocal PVCs Code(s): I49.3 - Ventricular premature depolarization Status: Acute - Plan consult case management for transfer for heart transplant eval and palliative care, d/w Dr Fernando and nurse; he appears to assymptomatic when not tachycardic , prognosis is poor 2.) SBE - lead and icd extraction per Dr Aguirre, abs per ID, then life vest
[2017-10-17] MEDS: LORazepam 1 MG Tablet PO PRN (21:42)
[2017-10-18] MEDS: Hypromellose 0.3% Opth Gel 10 GM Bottle EACH EYE SCH ×2 (03:32→21:40)
[2017-10-18] MEDS: Insulin NovoLOG Aspart Correctional Sugar Inj SQ SCH ×5 (06:18→21:36)
[2017-10-18] MEDS: Insulin Detemir Inj 1,000 UNIT/10 ML Vial SQ SCH (08:51)
[2017-10-18] MEDS: Polyethylene Glycol 3350 17 GM Packet PO SCH (08:51)
[2017-10-18] MEDS: Furosemide 20 MG Tablet PO SCH (08:51)
[2017-10-18] MEDS: Carvedilol 6.25 MG Tablet PO SCH ×2 (08:51→21:36)
[2017-10-18] MEDS: Heparin Drip 25,000 UNIT/250 ML BAG IV.CONT PRN (08:52)
[2017-10-18] MEDS: Senna/Docusate Sodium 8.6/50 MG Tablet PO SCH ×2 (08:52→21:41)
[2017-10-18] MEDS: Collagenase Oint 30 GM Tube TOPICAL SCH (08:54)
[2017-10-18] MEDS: LORazepam 1 MG Tablet PO PRN ×2 (08:57→21:40)
[2017-10-18] MEDS ORDERED: Heparin/NS PF Inj 0 ML ONE (09:46)
[2017-10-18] MEDS ORDERED: ceFAZolin 2 GM Premix Inj 2 GM/50 ML PIGGYBACK IV.SIG ONE (09:46)
[2017-10-18] MEDS ORDERED: fentaNYL Citrate Inj 100 MCG/2 ML Ampul ONE (10:17)
--- NOTE | 2017-10-18 10:25 | P.PNCV ---
- Note Subjective/Hospital Course: 57/ male presented to the emergency room with increasing abdominal pain, nausea , vomiting, unable to take his home medications, chills, fever, generalized tremors. Patient was found to have acute kidney injury with a creatinine of 1.40. Troponin was 1.86. EKG showed nonspecific ST changes. Apparently, he has been off his Eliquis since he was unable to afford his medication. Blood sugar was greater than 400 and his lactic acid was 6.4. He was resuscitated with IV fluids. The patient was admitted with sepsis, lactic acidosis, acute kidney injury. The patient's blood cultures grew Staphylococcus aureus in 3/4 bottles on 2017. Repeat blood cultures on 10/11/2017 have been negative. He has been on IV antibiotics, followed by Infectious Disease. PAST MEDICAL HISTORY: Amputated toe, CHF, COPD, coronary artery disease, diabetes mellitus, hypertension, hepatitis C, hyperlipidemia, prior ID, osteomyelitis of right second toe , peripheral arterial disease, traumatic amputation, AICD, coronary artery bypass graft x 3, He had the right second toe amputation 6 weeks ago and IV antibiotics for 6 weeks. He had an ICD placed in 2007. CARA showed 28 mm mass adjacent to the tricuspid valve leaflet and ICD lead. 10/17 pt doing fair, scheduled for ICD removal and epicardial lead extraction in am 10/18 for surgery today, no new complaints Objective: Vital Signs - 24 hr 10/17/17 11:00 10/17/17 12:00 10/17/17 13:48 Temperature 98.6 F Pulse Rate 75 82 82 Respiratory Rate 16 Blood Pressure 118/68 Pulse Oximetry 96 10/17/17 14:00 10/17/17 15:00 10/17/17 16:00 Temperature 98.3 F Pulse Rate 77 77 71 Respiratory Rate 15 Blood Pressure 120/57 L Pulse Oximetry 98 10/17/17 17:00 10/17/17 18:00 10/17/17 19:00 Temperature 98.6 F Pulse Rate 88 77 80 Respiratory Rate 18 Blood Pressure 129/61 Pulse Oximetry 98 10/17/17 21:00 10/17/17 23:00 10/18/17 01:00 Temperature 98.4 F Pulse Rate 79 71 68 Respiratory Rate 20 Blood Pressure 121/58 L Pulse Oximetry 96 10/18/17 03:00 10/18/17 05:00 10/18/17 06:00 Temperature 97.9 F Pulse Rate 74 74 72 Respiratory Rate 22 Blood Pressure 116/64 Pulse Oximetry 94 L 10/18/17 07:00 10/18/17 08:00 10/18/17 09:00 Temperature 98 F Pulse Rate 67 72 93 H Respiratory Rate 19 Blood Pressure 123/70 Pulse Oximetry 98 GENERAL: A&O x 3 SKIN: Warm and dry. pacer insitu left upper chest , dressing right forefoot HEAD: Normocephalic. EYES: No scleral icterus. No injection or drainage. NECK: Supple, trachea midline. No JVD or lymphadenopathy. CARDIOVASCULAR: Regular rate and rhythm without murmurs, gallops, or rubs. RESPIRATORY: Breath sounds equal bilaterally. No accessory muscle use. GASTROINTESTINAL: Abdomen soft, non-tender, nondistended. MUSCULOSKELETAL: No cyanosis, or edema. BACK: Nontender without obvious deformity. No CVA tenderness. Labs: Laboratory Results - last 12 hr 10/18/17 08:06 POC Glucose 246 H Result Diagrams: 10/14/17 03:34 10/14/17 03:34 - Plan (1) Staphylococcus aureus bacteremia with sepsis Plan: for ICD removal and lead extraction today
--- NOTE | 2017-10-18 10:33 | P.PNCA ---
Subjective Interval history: alert in nad Physical Exam Vital signs: Vital Signs 10/17/17 11:00 10/17/17 12:00 10/17/17 13:48 Temperature 98.6 F Pulse Rate 75 82 82 Respiratory Rate 16 Blood Pressure 118/68 Pulse Oximetry 96 10/17/17 14:00 10/17/17 15:00 10/17/17 16:00 Temperature 98.3 F Pulse Rate 77 77 71 Respiratory Rate 15 Blood Pressure 120/57 L Pulse Oximetry 98 10/17/17 17:00 10/17/17 18:00 10/17/17 19:00 Temperature 98.6 F Pulse Rate 88 77 80 Respiratory Rate 18 Blood Pressure 129/61 Pulse Oximetry 98 10/17/17 21:00 10/17/17 23:00 10/18/17 01:00 Temperature 98.4 F Pulse Rate 79 71 68 Respiratory Rate 20 Blood Pressure 121/58 L Pulse Oximetry 96 10/18/17 03:00 10/18/17 05:00 10/18/17 06:00 Temperature 97.9 F Pulse Rate 74 74 72 Respiratory Rate 22 Blood Pressure 116/64 Pulse Oximetry 94 L 10/18/17 07:00 10/18/17 08:00 10/18/17 09:00 Temperature 98 F Pulse Rate 67 72 93 H Respiratory Rate 19 Blood Pressure 123/70 Pulse Oximetry 98 Intake & Output 10/17/17 10/18/17 10/18/17 18:59 06:59 18:59 Intake Total 1084 / 1084 440 / 440 340 / 340 Output Total 1100 / 1100 1700 / 1700 Balance -16 / -16 -1260 / -1260 340 / 340 Weight 81.5 kg Intake: IV 604 / 604 200 / 200 340 / 340 Heparin/D5W 25,000 U/250 mL 25, 204 / 204 240 / 240 000 unit In 250 ml @ Per Protocol IV.CONT TITRATE PRN Rx #:[id number] Prostaphlin Inj 2 GM In NS Inj 400 / 400 200 / 200 100 / 100 100 ML @ 200 mls/hr IV.SIG Q4H JEFE Rx#:[id number] Oral 480 / 480 240 / 240 Output: Urine 1100 / 1100 1700 / 1700 Other: # Voids 2 Date of Last Bowel Movement 07/25/18 07/26/18 07/26/18 # Bowel Movements 1 Assessment and Plan - Assessment (1) ACS (acute coronary syndrome) Code(s): I24.9 - Acute ischemic heart disease, unspecified Status: Acute (2) Acidosis, lactic Code(s): E87.2 - Acidosis Status: Acute (3) DKA (diabetic ketoacidoses) Code(s): E13.10 - Other specified diabetes mellitus with ketoacidosis without coma Status: Acute (4) Frequent unifocal PVCs Code(s): I49.3 - Ventricular premature depolarization Status: Acute - Plan consult case management for transfer for heart transplant eval and palliative care, d/w Dr Fernando and nurse; he appears to assymptomatic when not tachycardic , prognosis is poor 2.) SBE - lead and icd extraction per Dr Cunha today, abs per ID, then life vest
[2017-10-18] MEDS ORDERED: Bupivacaine PF 0.5% Inj 30 ML Vial ONE ×2 (10:42→10:45)
[2017-10-18] MEDS ORDERED: Post-op Orders (for Pharmacy) OTHER STA (11:21)
--- NOTE | 2017-10-18 11:33 | P.OP ---
Date of procedure: 10/18/17 Anesthesia: GETA Surgeon: John Mcguire MD Operation and Findings: PREOPERATIVE DIAGNOSIS 1. Cardiomyopathy 2. CHF 3. Severe Left Ventricular Dysfunction 4. Endocarditis 5. Infected ICD generator and lead POSTOPERATIVE DIAGNOSIS same PROCEDURES Removal of left subclavicular ICD generator and lead SURGEON John Mcguire MD LEATHER TACKER JEFF Eid ANESTHESIA General Double-lumen endotracheal. DAT INSTRUCTOR DEVANTE Escobar MD OPERATIVE TIME Please see record. COMPLICATIONS None. INDICATION FOR PROCEDURE The patient is a 57yo gentleman with cardiomyopathy, CAD s/p previous CABG and recurrent CHF who is being brought to the operating room for removal of AICD generator and lead due to endocarditis and infection. DESCRIPTION OF PROCEDURE The patient was brought to the operating suite and placed in supine position. Following satisfactory induction of general endotracheal anesthesia, the patient was prepped and draped in the usual sterile fashion. The previously healed infraclavicular incision was opened and the generator explanted. The generator generator was a [employer] Assura VR [id number], serial # [id number]. There was bloody fluid in the pocket which was cultured. The lead appeared to be fractured approximately 7 cm beyond its insertion into the ICD device. With gentle traction the ICD lead was removed intact without any difficulty. The lead was a [employer] [id number], serial number [id number]. The pocket was copiously irrigated with antibiotic solution. Strict hemostasis was assured. The subclavicular incision was closed with 2-0, 3-0, and 4-0 Monocryl. The patient tolerated the procedure well and postoperatively went to recovery in stable condition.
[2017-10-18] MEDS ORDERED: Lidocaine PF 1% Inj 5 ML Syringe INFILTRATN ONE (12:00)
--- NOTE | 2017-10-18 12:18 | XR ---
EXAM DATE: 10/18/2017 12:13 PM EDT AGE/SEX: 57 years / Male INDICATIONS: Post op, thoracotomy. Evaluate for pneumothorax. CLINICAL DATA: This is the patient's subsequent encounter. Patient reports that signs and symptoms h ave been present for 2 days and indicates a pain score of 0/10. MEDICAL/SURGICAL HISTORY: Diabetes mellitus type II. CABG. Defibrillator. COMPARISON: [facility], CHEST 1V SINGLE AP, 10/09/2017. . FINDINGS: Sternal wires from previous bypass are noted. There is no pneumothorax. Mild compensated cardiomegaly . No significant pleural effusion. CONCLUSION: Negative for pneumothorax. Mild compensated cardiomegaly. Electronically signed by: Lavelle Cash MD 10/18/2017 12:16 PM EDT
--- NOTE | 2017-10-18 15:29 | P.PN ---
Physical Exam Vital signs: Vital Signs 10/17/17 16:00 10/17/17 17:00 10/17/17 18:00 Temperature Pulse Rate 71 88 77 Respiratory Rate Blood Pressure Pulse Oximetry 10/17/17 19:00 10/17/17 21:00 10/17/17 23:00 Temperature 98.6 F 98.4 F Pulse Rate 80 79 71 Respiratory Rate 18 20 Blood Pressure 129/61 121/58 L Pulse Oximetry 98 96 10/18/17 01:00 10/18/17 03:00 10/18/17 05:00 Temperature 97.9 F Pulse Rate 68 74 74 Respiratory Rate 22 Blood Pressure 116/64 Pulse Oximetry 94 L 10/18/17 06:00 10/18/17 07:00 10/18/17 08:00 Temperature 98 F Pulse Rate 72 67 72 Respiratory Rate 19 Blood Pressure 123/70 Pulse Oximetry 98 10/18/17 09:00 10/18/17 11:42 10/18/17 11:45 Temperature 97.4 F L 97.4 F L Pulse Rate 93 H 68 70 Respiratory Rate 14 20 Blood Pressure 132/73 138/75 Pulse Oximetry 99 98 10/18/17 12:00 10/18/17 12:15 10/18/17 12:30 Temperature 97.4 F L 97.4 F L 97.4 F L Pulse Rate 66 64 64 Respiratory Rate 20 20 20 Blood Pressure 123/70 117/69 113/72 Pulse Oximetry 97 10/18/17 12:50 Temperature 98.0 F Pulse Rate 99 H Respiratory Rate 24 Blood Pressure 109/64 Pulse Oximetry Intake & Output 10/17/17 10/18/17 10/18/17 18:59 06:59 18:59 Intake Total 1084 / 1084 440 / 440 740 / 740 Output Total 1100 / 1100 1700 / 1700 50 / 50 Balance -16 / -16 -1260 / -1260 690 / 690 Weight 81.5 kg Intake: IV 604 / 604 200 / 200 640 / 640 Heparin/D5W 25,000 U/250 mL 25, 204 / 204 490 / 490 000 unit In 250 ml @ Per Protocol IV.CONT TITRATE PRN Rx #:[id number] Prostaphlin Inj 2 GM In NS Inj 400 / 400 200 / 200 100 / 100 100 ML @ 200 mls/hr IV.SIG Q4H JEFE Rx#:[id number] Ancef 2 GM Premix Inj 2 gm In 50 / 50 50 ml @ 0 mls/hr IV.SIG .STK- MED ONE Rx#:[id number] Oral 480 / 480 240 / 240 Anesthesia Amount 100 / 100 Output: Urine 1100 / 1100 1700 / 1700 Estimated Blood Loss 50 / 50 Other: # Voids 2 Date of Last Bowel Movement 10/16/17 10/17/17 10/17/17 # Bowel Movements 1 Narrative: Subjective Interval history: F/up NSTEMI, Bacteremia MSSA, Endocarditis TV Feels tired. Went for AICD removal today. Denies having any fever or chills. Denies cp, sob, n/v/d/c. Physical Exam GENERAL: 57-year-old male, well-developed, well-nourished, in no acute distress. CARDIAC: AICD removed from the left upper chest. Regular rhythm, regular rate. No MRG LUNGS: Clear to auscultation bilaterally. No wheeze, rhonchi or rales. ABDOMEN: Bowel sounds present. No distention. EXTREMITIES: No edema. Bandage on right foot, CDI. NEUROLOGY: Awake and alert. Cranial nerves II through XII grossly intact. Muscle strength 5/5 in upper and lower extremities bilaterally. Assessment and Plan Non-ST elevated myocardial infarction Systolic CHF with severely reduced EF of 25-30% -Patient does have increased risk factors to include age, male, hypertension, hyperlipidemia, coronary artery disease, cardiomyopathy -Patient did have serial cardiac enzymes performed which did show a significant elevation up to 7.05 now going down to 2.63 -EKG does show acute changes with inverted T waves in inferior leads and ST depressions in the lateral leads -Patient is Coreg, statin, will start aspirin, nitroglycerin as needed -Cardiology has been consulted and says he is not a candidate for cardiac catheterization. They recommend palliative care or referral for heart transplant work-up. -Continue oxygen -Continue monitor telemetry -Morphine for pain control -S/p CARA with large TV endocarditis Bacteremia -High-grade MSSA infection from PICC line. Repeat cultures also positive. -PICC line has been removed. -Infectious disease consulted appreciate recommendations. Continue antibiotics. S/P CARA 10/14/17 Patient with MSSA high grade bactermia 2/2 PICC line Recent osteo 2 nd toe sp amputation Consult podiatry for evaluation patient can't have MRI because has AICD Plan for AICD removal by Dr Aguirre Patient will need AICD associated TV endocarditis sp AICD placement in May + CARA ( 10/14/17) with large vegetation 20x28 mm cont oxacillin per ID Dr Tinsley ID ff needs AICD removal per Id recommendations, who notified cardiology Dr Aguirre EP Sepsis, resolved -Patient did meet criteria on presentation with leukocytosis, lactic acidosis, source of infection -Patient was started on empiric antibiotics include vancomycin, Zosyn, now on oxacillin as patient with MSSA bacteremia -Patient was pancultured and found to have bacteremia as above Anxiety The pt has episodes of shaking and respiratory distress that may be s/t anxiety. - Ativan as needed. Diabetic ketoacidosis, uncontrolled diabetes, improved -Status post insulin drip -Hemoglobin A1c 8.2 -Continue sliding scale insulin Metabolic/toxic encephalopathy, likely secondary to infection, diabetic ketoacidosis, resolved -Continue monitor neuro checks Lactic acid acidosis, resolved -Multifactorial with diabetic ketoacidosis and sepsis Acute renal failure superimposed on chronic kidney disease stage II, improved -BRIANA inhibitor has been held -Avoid nephrotoxins Muscle spasm the back. Start Flexeril DVT prevention -Patient is on heparin IV Discussed with the patient, nurse, ID specialist Dr Henao Per Dr. Henao cardiology patient needs a heart transplant. Case management consulted Also palliative care consulted for goals of care S/P CARA with large TV endocarditis. Per ID indication Dr Tinsley AICD to be removed. Plan for AICD removal by Dr Aguirre. Patient to have life vest. If remains afebrile for 2 weeks might consider AICD placement in the opposite side of chest. Patient will also need intermediate IV antibiotic. Patient also has likely osteo, podiatry consulted Also might need evaluation from [facility] surgery Results - Labs CBC & Chem 7: 10/14/17 03:34 10/14/17 03:34 Laboratory Results - last 24 hr 10/17/17 10/18/17 16:36 08:06 POC Glucose 246 H 246 H - Imaging Impressions Chest X-Ray 10/18/17 11:21 CONCLUSION: Negative for pneumothorax. Mild compensated cardiomegaly. - Procedures Awaiting echocardiogram
--- NOTE | 2017-10-19 08:04 | P.PNIM ---
Subjective Interval history: f/u; bacteremia/endocarditis resting comfortably with no acute distress. denies chest pain or sob. no fever. no new complaints. Physical Exam Vital signs: Vital Signs 10/18/17 08:00 10/18/17 09:00 10/18/17 11:42 Temperature 97.4 F L Pulse Rate 72 93 H 68 Respiratory Rate 14 Blood Pressure 132/73 Pulse Oximetry 99 10/18/17 11:45 10/18/17 12:00 10/18/17 12:15 Temperature 97.4 F L 97.4 F L 97.4 F L Pulse Rate 70 66 64 Respiratory Rate 20 20 20 Blood Pressure 138/75 123/70 117/69 Pulse Oximetry 98 97 10/18/17 12:30 10/18/17 12:50 10/18/17 15:00 Temperature 97.4 F L 98.0 F 97.6 F Pulse Rate 64 99 H 79 Respiratory Rate 20 24 28 H Blood Pressure 113/72 109/64 97/51 L Pulse Oximetry 10/18/17 16:00 10/18/17 17:00 10/18/17 20:00 Temperature 97.6 F 98.4 F Pulse Rate 78 73 86 Respiratory Rate 17 16 Blood Pressure 122/70 154/82 H Pulse Oximetry 99 97 10/19/17 00:00 10/19/17 04:00 Temperature 98.7 F 98.1 F Pulse Rate 81 83 Respiratory Rate 17 19 Blood Pressure 105/57 L 103/56 L Pulse Oximetry 93 L 97 Intake & Output 10/18/17 10/19/17 10/19/17 18:59 06:59 18:59 Intake Total 940 / 940 540 / 540 Output Total 1150 / 1150 Balance -210 / -210 540 / 540 Weight 81.9 kg 82.9 kg Intake: IV 840 / 840 300 / 300 Heparin/D5W 25,000 U/250 mL 25, 490 / 490 000 unit In 250 ml @ Per Protocol IV.CONT TITRATE PRN Rx #:[id number] Prostaphlin Inj 2 GM In NS Inj 300 / 300 300 / 300 100 ML @ 200 mls/hr IV.SIG Q4H JEFE Rx#:[id number] Ancef 2 GM Premix Inj 2 gm In 50 / 50 50 ml @ 0 mls/hr IV.SIG .STK- MED ONE Rx#:[id number] Oral 240 / 240 Anesthesia Amount 100 / 100 Output: Urine 1100 / 1100 Estimated Blood Loss 50 / 50 Other: # Voids 3 Date of Last Bowel Movement 10/17/17 - Constitutional no acute distress - Routine Respiratory Exam Present: CTA bilaterally - Routine Cardiovascular Exam Present: RRR - Routine Abdominal Exam Present: soft - Routine Extremities Exam Comments: right foot covered with clean dressing. - Routine Neurological Exam Present: alert, oriented X3 Results - Labs CBC & Chem 7: 10/14/17 03:34 10/14/17 03:34 Laboratory Results - last 24 hr 10/18/17 10/18/17 10/18/17 08:06 16:01 19:55 POC Glucose 246 H 310 H 267 H Microbiology 10/18/17 11:02 Other Fungal Smear - Final No fungal elements seen 10/18/17 11:02 Wound - Other Gram Stain - Final - Imaging Impressions Chest X-Ray 10/18/17 11:21 CONCLUSION: Negative for pneumothorax. Mild compensated cardiomegaly. - Procedures CARA/ s/p ICD and lead removal. Assessment and Plan - Plan Non-ST elevated myocardial infarction Systolic CHF with severely reduced EF of 25-30% -Patient does have increased risk factors to include age, male, hypertension, hyperlipidemia, coronary artery disease, cardiomyopathy -Patient did have serial cardiac enzymes performed which did show a significant elevation up to 7.05 now going down to 2.63 -Cardiology has been consulted and says he is not a candidate for cardiac catheterization. They recommend palliative care or referral for heart transplant work-up. -continue aspirin, statin and coreg -Continue oxygen -Continue monitor telemetry -Morphine for pain control -S/p CARA with large TV endocarditis -s/p removal of the ICD; needs life vest. Bacteremia -High-grade MSSA infection from PICC line. -PICC line has been removed. -Infectious disease consulted appreciate recommendations. Continue antibiotics. S/P CARA 10/14/17 Patient with MSSA high grade bactermia 2/2 PICC line Recent osteo 2 nd toe sp amputation Consulted podiatry for evaluation patient can't have MRI because has AICD AICD associated TV endocarditis sp AICD placement in May + CARA ( 10/14/17) with large vegetation 20x28 mm s/p ICD and lead removal cont oxacillin per ID Dr Tinsley ID ff Sepsis, resolved -Patient did meet criteria on presentation with leukocytosis, lactic acidosis, source of infection -Patient was started on empiric antibiotics include vancomycin, Zosyn, now on oxacillin as patient with MSSA bacteremia -Patient was pancultured and found to have bacteremia as above Anxiety The pt has episodes of shaking and respiratory distress that may be s/t anxiety. - Ativan as needed. Diabetic ketoacidosis, uncontrolled diabetes, improved -Status post insulin drip -Hemoglobin A1c 8.2 -Continue sliding scale insulin and levemir Metabolic/toxic encephalopathy, likely secondary to infection, diabetic ketoacidosis, resolved Acute renal failure superimposed on chronic kidney disease stage II, improved -BRIANA inhibitor has been held -Avoid nephrotoxins DVT prevention -Patient is on heparin IV palliative care following. Discharge Planning: awaiting hospice re- evaluation. case management consulted for transfer for heart transplant.
[2017-10-19] MEDS: Furosemide 20 MG Tablet PO SCH (09:35)
[2017-10-19] MEDS: Carvedilol 6.25 MG Tablet PO SCH ×2 (09:35→20:31)
[2017-10-19] MEDS: Senna/Docusate Sodium 8.6/50 MG Tablet PO SCH ×2 (09:35→20:33)
[2017-10-19] MEDS: Polyethylene Glycol 3350 17 GM Packet PO SCH (09:36)
[2017-10-19] MEDS: Insulin NovoLOG Aspart Correctional Sugar Inj SQ SCH ×4 (09:36→20:32)
[2017-10-19] MEDS: Insulin Detemir Inj 1,000 UNIT/10 ML Vial SQ SCH (09:37)
[2017-10-19] MEDS: LORazepam 1 MG Tablet PO PRN ×2 (09:40→20:31)
--- NOTE | 2017-10-19 10:50 | P.PNCV ---
- Note Subjective/Hospital Course: 57/ male presented to the emergency room with increasing abdominal pain, nausea , vomiting, unable to take his home medications, chills, fever, generalized tremors. Patient was found to have acute kidney injury with a creatinine of 1.40. Troponin was 1.86. EKG showed nonspecific ST changes. Apparently, he has been off his Eliquis since he was unable to afford his medication. Blood sugar was greater than 400 and his lactic acid was 6.4. He was resuscitated with IV fluids. The patient was admitted with sepsis, lactic acidosis, acute kidney injury. The patient's blood cultures grew Staphylococcus aureus in 3/4 bottles on 2017. Repeat blood cultures on 10/11/2017 have been negative. He has been on IV antibiotics, followed by Infectious Disease. PAST MEDICAL HISTORY: Amputated toe, CHF, COPD, coronary artery disease, diabetes mellitus, hypertension, hepatitis C, hyperlipidemia, prior [place], osteomyelitis of right second toe , peripheral arterial disease, traumatic amputation, AICD, coronary artery bypass graft x 3, He had the right second toe amputation 6 weeks ago and IV antibiotics for 6 weeks. He had an ICD placed in 2007. CARA showed 28 mm mass adjacent to the tricuspid valve leaflet and ICD lead. 10/17 pt doing fair, scheduled for ICD removal and epicardial lead extraction in am 10/18 for surgery today, no new complaints 10/19 S/P Removal of left subclavicular ICD generator and lead yesterday Doing well He will need LifeVest at discharge until a definitive permanent ICD device can be placed by Dr. Aguirre No further surgical input needed. We will sign off for now. Please feel free to contact me if I can be of any further assistance. Objective: Vital Signs - 24 hr 10/18/17 11:42 10/18/17 11:45 10/18/17 12:00 Temperature 97.4 F L 97.4 F L 97.4 F L Pulse Rate 68 70 66 Respiratory Rate 14 20 20 Blood Pressure 132/73 138/75 123/70 Pulse Oximetry 99 98 97 10/18/17 12:15 10/18/17 12:30 10/18/17 12:50 Temperature 97.4 F L 97.4 F L 98.0 F Pulse Rate 64 64 99 H Respiratory Rate 20 20 24 Blood Pressure 117/69 113/72 109/64 Pulse Oximetry 10/18/17 15:00 10/18/17 16:00 10/18/17 17:00 Temperature 97.6 F 97.6 F Pulse Rate 79 78 73 Respiratory Rate 28 H 17 Blood Pressure 97/51 L 122/70 Pulse Oximetry 99 10/18/17 20:00 10/19/17 00:00 10/19/17 04:00 Temperature 98.4 F 98.7 F 98.1 F Pulse Rate 86 81 83 Respiratory Rate 16 17 19 Blood Pressure 154/82 H 105/57 L 103/56 L Pulse Oximetry 97 93 L 97 10/19/17 08:00 Temperature Pulse Rate 72 Respiratory Rate Blood Pressure Pulse Oximetry Labs: Laboratory Results - last 12 hr 10/19/17 08:08 POC Glucose 391 H Result Diagrams: 10/14/17 03:34 10/14/17 03:34 - Plan (1) Staphylococcus aureus bacteremia with sepsis Plan: for ICD removal and lead extraction today
--- NOTE | 2017-10-19 10:53 | P.PNADD ---
Addendum to Inpatient Note Additional information: Pt was seen and examined Full note to follow
--- NOTE | 2017-10-19 13:45 | P.PNCA ---
Subjective Interval history: assymptomatic in nad Physical Exam Vital signs: Vital Signs 10/18/17 15:00 10/18/17 16:00 10/18/17 17:00 Temperature 97.6 F 97.6 F Pulse Rate 79 78 73 Respiratory Rate 28 H 17 Blood Pressure 97/51 L 122/70 Pulse Oximetry 99 10/18/17 20:00 10/19/17 00:00 10/19/17 04:00 Temperature 98.4 F 98.7 F 98.1 F Pulse Rate 86 81 83 Respiratory Rate 16 17 19 Blood Pressure 154/82 H 105/57 L 103/56 L Pulse Oximetry 97 93 L 97 10/19/17 07:00 10/19/17 08:00 Temperature Pulse Rate 72 Respiratory Rate 20 Blood Pressure Pulse Oximetry Intake & Output 10/18/17 10/19/17 10/19/17 18:59 06:59 18:59 Intake Total 940 / 940 540 / 540 100 / 100 Output Total 1150 / 1150 Balance -210 / -210 540 / 540 100 / 100 Weight 81.9 kg 82.9 kg Intake: IV 840 / 840 300 / 300 100 / 100 Heparin/D5W 25,000 U/250 mL 25, 490 / 490 000 unit In 250 ml @ Per Protocol IV.CONT TITRATE PRN Rx #:[id number] Prostaphlin Inj 2 GM In NS Inj 300 / 300 300 / 300 100 / 100 100 ML @ 200 mls/hr IV.SIG Q4H JEFE Rx#:[id number] Ancef 2 GM Premix Inj 2 gm In 50 / 50 50 ml @ 0 mls/hr IV.SIG .STK- MED ONE Rx#:[id number] Oral 240 / 240 Anesthesia Amount 100 / 100 Output: Urine 1100 / 1100 Estimated Blood Loss 50 / 50 Other: # Voids 3 Date of Last Bowel Movement 10/17/17 10/17/17 Assessment and Plan - Assessment (1) ACS (acute coronary syndrome) Code(s): I24.9 - Acute ischemic heart disease, unspecified Status: Acute (2) Acidosis, lactic Code(s): E87.2 - Acidosis Status: Acute (3) DKA (diabetic ketoacidoses) Code(s): E13.10 - Other specified diabetes mellitus with ketoacidosis without coma Status: Acute (4) Frequent unifocal PVCs Code(s): I49.3 - Ventricular premature depolarization Status: Acute - Plan 1.) Ischemic cardiomyopathy - consult case management for transfer for heart transplant eval and palliative care, d/w Dr Fernando and nurse; he appears to assymptomatic when not tachycardic, prognosis is poor 2.) SBE - pod #1 s/p lead and icd extraction per Dr Cunha 10/18/17, stable, abs per ID, then life vest
[2017-10-19] MEDS: Collagenase Oint 30 GM Tube TOPICAL SCH (17:37)
--- NOTE | 2017-10-19 18:03 | P.PNID ---
Subjective Remarks: no fever, last blood cultures reamin negative sp AICD removal 3 phase bone scan positeive for osteo Antibiotics: oxacillin Past Medical History: R 2nd toe osteo CAD AICD Allergies/Adverse Reactions: Allergies potassium iodide Allergy (Severe, Verified 10/06/17 09:36) Swelling povidone-iodine Allergy (Severe, Verified 10/06/17 09:36) Swelling shellfish derived Allergy (Severe, Verified 10/06/17 09:36) Swelling sodium iodide Allergy (Severe, Verified 10/06/17 09:36) Swelling sodium iodide Allergy (Severe, Verified 10/06/17 09:36) Swelling Objective Vital Signs 10/18/17 20:00 10/19/17 00:00 10/19/17 04:00 Temperature 98.4 F 98.7 F 98.1 F Pulse Rate 86 81 83 Respiratory Rate 16 17 19 Blood Pressure 154/82 H 105/57 L 103/56 L Pulse Oximetry 97 93 L 97 10/19/17 07:00 10/19/17 08:00 10/19/17 12:00 Temperature Pulse Rate 72 74 Respiratory Rate 20 Blood Pressure Pulse Oximetry 10/19/17 16:00 Temperature Pulse Rate 74 Respiratory Rate Blood Pressure Pulse Oximetry Intake & Output 10/18/17 10/19/17 10/19/17 18:59 06:59 18:59 Intake Total 940 / 940 540 / 540 640 / 640 Output Total 1150 / 1150 1150 / 1150 Balance -210 / -210 540 / 540 -510 / -510 Weight 81.9 kg 82.9 kg Intake: IV 840 / 840 300 / 300 100 / 100 Heparin/D5W 25,000 U/250 mL 25, 490 / 490 000 unit In 250 ml @ Per Protocol IV.CONT TITRATE PRN Rx #:[id number] Prostaphlin Inj 2 GM In NS Inj 300 / 300 300 / 300 100 / 100 100 ML @ 200 mls/hr IV.SIG Q4H JEFE Rx#:[id number] Ancef 2 GM Premix Inj 2 gm In 50 / 50 50 ml @ 0 mls/hr IV.SIG .STK- MED ONE Rx#:[id number] Oral 240 / 240 240 / 240 Anesthesia Amount 100 / 100 100 / 100 Other 200 / 200 Output: Urine 1100 / 1100 1100 / 1100 Estimated Blood Loss 50 / 50 50 / 50 Other: # Voids 3 3 Date of Last Bowel Movement 10/17/17 10/17/17 # Bowel Movements 1 10/18/17 11:02 Wound - Other Gram Stain - Final 10/18/17 11:02 Wound - Other Wound Culture - Preliminary No growth in 24 hours 10/18/17 11:02 Other Fungal Smear - Final No fungal elements seen 10/18/17 11:02 Other Fungal Culture - Pending 10/18/17 11:02 Other Acid Fast Bacilli Smear - Pending 10/18/17 11:02 Other Mycobacterial Culture - Pending Lab - Chemistry Results 10/18/17 10/18/17 10/18/17 08:06 16:01 19:55 POC Glucose 246 H 310 H 267 H 10/19/17 10/19/17 10/19/17 08:08 12:22 17:06 POC Glucose 391 H 334 H 341 H Imaging: ITS Impressions Abdomen/Pelvis CT 10/06/17 00:00 CONCLUSION: 1. No acute abnormality seen. 2. Increased density at the posterior lower lobes likely related to mild atelectasis. 3. Scattered atherosclerotic calcifications throughout the arterial system. 4. Degenerative and postsurgical change in the lumbar spine. Foot X-Ray 10/15/17 00:00 CONCLUSION: 1. Status post amputation of the second digit. 2. Mild osteoarthritic change. 3. No evidence to suggest osteomyelitis. SPECT Scan-Bone NM 10/17/17 00:00 CONCLUSION: Chest X-Ray 10/18/17 11:21 CONCLUSION: Negative for pneumothorax. Mild compensated cardiomegaly. Physical Exam: GENERAL: NAD SKIN: Warm and dry. CARDIOVASCULAR: Regular rate and rhythm. AICD in place, no skin changes, well healed incision RESPIRATORY: No accessory muscle use. Clear to auscultation. Breath sounds equal bilaterally. GASTROINTESTINAL: Abdomen soft, non-tender, nondistended. Hepatic and splenic margins not palpable. MUSCULOSKELETAL: Extremities without clubbing, cyanosis, or edema. No obvious deformities. dressing in place R foot R 2nd toe amputation sie is opened and has some small amount of odorless drainage NEUROLOGICAL: Awake and alert. No obvious cranial nerve deficits. Motor grossly within normal limits. Five out of 5 muscle strength in the arms and legs. Normal speech. PSYCHIATRIC: Appropriate mood and affect; insight and judgment normal. Assessment and Plan (1) Staphylococcal sepsis Status: Acute Code(s): A41.2 - Sepsis due to unspecified staphylococcus (2) Staphylococcus aureus bacteremia with sepsis Status: Acute Code(s): A41.01 - Sepsis due to Methicillin susceptible Staphylococcus aureus - Plan MSSAhigh grade bactermia 2/2 PICC line Recent osteo 2 nd toe sp amputaiton AICD associated TV endocarditis sp AICD placement in May + CARA with veg'n 20x28 mm Non healing R 2nd toe amputation site: neg Xray - bone scan positive for osteo cont oxacillin - monitoring parameters: CBC, CMP at least weekly for AICD removal and life vest AICD can be placed on contralateral site after 2 wweeks of IV abx providing blood clx remian negative and no active infx in R foot 3 phase bone scan vasc w/u was done 2 mos ago and negative CTA\ Probably small vessel disease reconsult poditry paola RN paola Mcguire: concern for new permanent AICD placemnt in the setting sof ongoing bone infx reconsult podiatry
[2017-10-19] MEDS: Hypromellose 0.3% Opth Gel 10 GM Bottle EACH EYE SCH (20:32)
[2017-10-20 07:12] LABS: Baso # (Auto) 0.1 th/mm3 (0.0-0.2); Baso % (Auto) 1.3 % (0.0-2.0); Eos # (Auto) 0.1 th/mm3 (0.0-0.4); Eos % (Auto) 1.9 % (0.0-4.0); Hematocrit 33.7 % (39.0-51.0); Hemoglobin 11.4 gm/dL (13.0-17.0); Lymph # (Auto) 1.4 th/mm3 (1.0-4.8); Lymph % (Auto) 21.9 % (9.0-44.0); Mean Corpuscular HGB Conc 33.8 % (32.0-36.0); Mean Corpuscular Hemoglobin 28.4 pg (27.0-34.0); Mean Corpuscular Volume 84.3 fL (80.0-100.0); Mean Platelet Volume 7.9 fL (7.0-11.0); Mono # (Auto) 0.6 th/mm3 (0.0-0.9); Mono % (Auto) 8.9 % (0.0-8.0); Neut # (Auto) 4.2 th/mm3 (1.8-7.7); Platelet Count 283 th/mm3 (150-450); Red Blood Count 3.99 mil/mm3 (4.50-5.90); Red Cell Distribution Width 14.7 % (11.6-17.2); White Blood Count 6.4 th/mm3 (4.0-11.0)
[2017-10-20 07:40] LABS: C-Reactive Protein 0.84 mg/dL (0.00-0.30); Calcium 9.1 mg/dL (8.5-10.1); Carbon Dioxide 23.8 meq/L (21.0-32.0); Potassium 4.2 meq/L (3.5-5.1)
--- NOTE | 2017-10-20 08:19 | P.PNIM ---
Subjective Interval history: f/u; endocarditis/ bacteremia in no acute distress. looks comfortable with no chest pain or sob. afebrile. no new complaints. Physical Exam Vital signs: Vital Signs 10/19/17 11:00 10/19/17 12:00 10/19/17 15:00 Temperature 97.9 F 98.3 F Pulse Rate 82 74 82 Respiratory Rate 18 18 Blood Pressure 112/69 114/67 Pulse Oximetry 99 97 10/19/17 16:00 10/19/17 20:00 10/19/17 21:00 Temperature 97.4 F L Pulse Rate 74 78 81 Respiratory Rate 20 Blood Pressure 121/72 Pulse Oximetry 99 10/19/17 23:00 10/20/17 00:00 10/20/17 03:00 Temperature 97.6 F 97.4 F L Pulse Rate 74 80 70 Respiratory Rate 20 20 Blood Pressure 117/74 116/74 Pulse Oximetry 98 99 10/20/17 04:00 Temperature Pulse Rate 78 Respiratory Rate Blood Pressure Pulse Oximetry Intake & Output 10/19/17 10/20/17 10/20/17 18:59 06:59 18:59 Intake Total 740 / 740 982 / 982 Output Total 1150 / 1150 500 / 500 Balance -410 / -410 482 / 482 Weight 82.8 kg Intake: IV 200 / 200 400 / 400 Prostaphlin Inj 2 GM In NS Inj 200 / 200 400 / 400 100 ML @ 200 mls/hr IV.SIG Q4H JEFE Rx#:[id number] Oral 240 / 240 582 / 582 Anesthesia Amount 100 / 100 Other 200 / 200 Output: Urine 1100 / 1100 500 / 500 Estimated Blood Loss 50 / 50 Other: # Voids 3 2 Date of Last Bowel Movement 10/17/17 # Bowel Movements 1 1 - Constitutional no acute distress - Routine Respiratory Exam Present: CTA bilaterally - Routine Cardiovascular Exam Present: RRR - Routine Abdominal Exam Present: soft - Routine Extremities Exam Comments: no pedal edema. - Routine Neurological Exam Present: alert, oriented X3 Results - Labs CBC & Chem 7: 10/20/17 06:35 10/20/17 06:35 Laboratory Results - last 24 hr 10/19/17 10/19/17 10/19/17 08:08 12:22 17:06 WBC RBC Hgb Hct MCV MCH MCHC RDW Plt Count MPV Neut % (Auto) Lymph % (Auto) [place] % (Auto) Eos % (Auto) Baso % (Auto) Neut # (Auto) Lymph # (Auto) [place] # (Auto) Eos # (Auto) Baso # (Auto) WBC Differential Differential Comment Sodium Potassium Chloride Carbon Dioxide Anion Gap BUN Creatinine Estimated GFR POC Glucose 391 H 334 H 341 H Random Glucose Calcium C-Reactive Protein 10/19/17 10/20/17 10/20/17 19:57 06:35 06:35 WBC 6.4 RBC 3.99 L Hgb 11.4 L Hct 33.7 L MCV 84.3 MCH 28.4 MCHC 33.8 RDW 14.7 Plt Count 283 MPV 7.9 Neut % (Auto) 66.0 Lymph % (Auto) 21.9 [place] % (Auto) 8.9 H Eos % (Auto) 1.9 Baso % (Auto) 1.3 Neut # (Auto) 4.2 Lymph # (Auto) 1.4 [place] # (Auto) 0.6 Eos # (Auto) 0.1 Baso # (Auto) 0.1 WBC Differential . Differential Comment Auto diff final Sodium 137 Potassium 4.2 Chloride 104 Carbon Dioxide 23.8 Anion Gap 9 BUN 23 H Creatinine 1.09 Estimated GFR 69 L POC Glucose 383 H Random Glucose 267 H Calcium 9.1 C-Reactive Protein 0.84 H Microbiology 10/18/17 11:02 Wound - Other Gram Stain - Final 10/18/17 11:02 Wound - Other Wound Culture - Preliminary No growth in 24 hours - Procedures CARA/ s/p ICD and lead removal. Assessment and Plan - Plan Non-ST elevated myocardial infarction Systolic CHF with severely reduced EF of 25-30% -Patient did have serial cardiac enzymes performed which did show a significant elevation up to 7.05 now going down to 2.63 -Cardiology has been consulted and says he is not a candidate for cardiac catheterization. They recommended palliative care or referral for heart transplant work-up. -continue aspirin, statin and coreg -Continue oxygen as needed. -Continue monitor telemetry -s/p removal of the ICD; needs life vest. Bacteremia -High-grade MSSA infection from PICC line. -PICC line has been removed. Patient with MSSA high grade bactermia 2/2 PICC line -continue Oxacillin Recent osteo 2 nd toe sp amputation Consulted podiatry for evaluation patient. MRI ordered. 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 Sepsis, resolved -Patient did meet criteria on presentation with leukocytosis, lactic acidosis, source of infection -Patient was started on empiric antibiotics include vancomycin, Zosyn, now on oxacillin as patient with MSSA bacteremia -Patient was pancultured and found to have bacteremia as above Anxiety The pt has episodes of shaking and respiratory distress that may be s/t anxiety. - Ativan as needed. Diabetic ketoacidosis, uncontrolled diabetes, improved -Status post insulin drip -Hemoglobin A1c 8.2 -Continue sliding scale insulin and levemir; will increase Levemir to 14 units subq daily. Metabolic/toxic encephalopathy, likely secondary to infection, diabetic ketoacidosis, resolved Acute renal failure superimposed on chronic kidney disease stage II, improved -BRIANA inhibitor has been held -Avoid nephrotoxins DVT prevention -Patient is on heparin IV palliative care following. Discharge Planning: awaiting hospice re- evaluation. case management consulted for transfer for heart transplant/ life vest.
[2017-10-20] MEDS: Carvedilol 6.25 MG Tablet PO SCH ×2 (09:46→20:27)
[2017-10-20] MEDS: Furosemide 20 MG Tablet PO SCH (09:47)
[2017-10-20] MEDS: Polyethylene Glycol 3350 17 GM Packet PO SCH (09:47)
[2017-10-20] MEDS: Senna/Docusate Sodium 8.6/50 MG Tablet PO SCH ×2 (09:47→20:29)
[2017-10-20] MEDS: Insulin NovoLOG Aspart Correctional Sugar Inj SQ SCH ×4 (10:53→20:28)
[2017-10-20] MEDS: Insulin Detemir Inj 1,000 UNIT/10 ML Vial SQ SCH (10:54)
[2017-10-20] MEDS: Collagenase Oint 30 GM Tube TOPICAL SCH (10:55)
[2017-10-20] MEDS: LORazepam 1 MG Tablet PO PRN ×2 (10:55→20:27)
[2017-10-20] MEDS: Enoxaparin Inj 40 MG/0.4 ML Syringe SQ SCH (11:01)
--- NOTE | 2017-10-20 12:39 | P.PNPOD ---
Subjective Interval history: s/p Right 2nd toe amputation approximately [address] Goldman. Nonhealing surgical wound. Recently had pacemaker removed due to vegetation present Physical Exam Vital signs: Vital Signs 10/19/17 15:00 10/19/17 16:00 10/19/17 20:00 Temperature 98.3 F Pulse Rate 82 74 78 Respiratory Rate 18 Blood Pressure 114/67 Pulse Oximetry 97 10/19/17 21:00 10/19/17 23:00 10/20/17 00:00 Temperature 97.4 F L 97.6 F Pulse Rate 81 74 80 Respiratory Rate 20 20 Blood Pressure 121/72 117/74 Pulse Oximetry 99 98 10/20/17 03:00 10/20/17 04:00 10/20/17 07:00 Temperature 97.4 F L 97.4 F L Pulse Rate 70 78 77 Respiratory Rate 20 18 Blood Pressure 116/74 104/67 Pulse Oximetry 99 97 Intake & Output 10/19/17 10/20/17 10/20/17 18:59 06:59 18:59 Intake Total 740 / 740 982 / 982 Output Total 1150 / 1150 500 / 500 Balance -410 / -410 482 / 482 Weight 82.8 kg Intake: IV 200 / 200 400 / 400 Prostaphlin Inj 2 GM In NS Inj 200 / 200 400 / 400 100 ML @ 200 mls/hr IV.SIG Q4H JEFE Rx#:[id number] Oral 240 / 240 582 / 582 Anesthesia Amount 100 / 100 Other 200 / 200 Output: Urine 1100 / 1100 500 / 500 Estimated Blood Loss 50 / 50 Other: # Voids 3 2 Date of Last Bowel Movement 10/17/17 # Bowel Movements 1 1 Narrative: Right foot 2nd toe amputation site with fibrotic tissue. No erythema, no edema, no active purulence present at this time. Severe contractures to lesser digits. - Constitutional no acute distress - Neurological Alert and oriented x3 Medications and Allergies Active Medications: Active Medications Acetaminophen (Tylenol) 650 mg PO Q6H PRN PRN Reason: PAIN 1-10 AND/OR FEVER >101F Hydrocodone Bitart/Acetaminophen (Victor 5/325) 1 tab PO Q4H PRN PRN Reason: PAIN SCALE 1 TO 5 Last Admin: 10/08/17 21:04 Dose: 1 tab Al Hydroxide/Mg Hydroxide (Milk Of Magnesia Liq) 30 ml PO Q12H PRN PRN Reason: Mild Constipation Albuterol (Albuterol Neb (Prn)) 2.5 mg NEB Q2HR NEB PRN PRN Reason: SHORTNESS OF BREATH/WHEEZING Last Admin: 10/13/17 19:50 Dose: 2.5 mg Artificial Tears (Genteal Severe Dry Eye Relief 0.3% Opth Gel) 1 drops EACH EYE HS [facility] Last Admin: 10/19/17 20:32 Dose: Not Given Aspirin (Ecotrin) 325 mg PO DAILY [facility] Last Admin: 10/20/17 09:46 Dose: 325 mg Atorvastatin Calcium (Lipitor) 40 mg PO DAILY [facility] Last Admin: 10/20/17 09:45 Dose: 40 mg Bisacodyl (Dulcolax Supp) 10 mg RECTAL DAILY PRN PRN Reason: SEVERE CONSITIPATION Carvedilol (Coreg) 6.25 mg PO BID [facility] Last Admin: 10/20/17 09:46 Dose: 6.25 mg Chlorhexidine Gluconate (Hibiclens 4% Topical) 1 applicatio TOPICAL [employer] [facility] Stop: 10/22/17 08:40 Chlorhexidine Gluconate (Hibiclens 4% Topical) 1 applicatio TOPICAL [employer] [facility] Stop: 10/22/17 15:37 Collagenase (Santyl Oint) 1 applicatio TOPICAL DAILY [facility] Last Admin: 10/20/17 10:55 Dose: 1 applicatio Sodium Chloride 500 ml/ (Cefazolin Sodium 500 mg) 0 ml IRRIGATION [employer] [facility] Stop: 10/22/17 08:41 Sodium Chloride 500 ml/ (Cefazolin Sodium 500 mg) 0 ml [employer] [facility] Stop: 10/22/17 15:39 Cyclobenzaprine HCl (Flexeril) 5 mg PO Q8H PRN PRN Reason: muscle relaxer Last Admin: 10/20/17 09:46 Dose: 5 mg Dextrose (D50w Vial) 50 ml IV.PUSH UNSCH PRN PRN Reason: PER HYPOGLYCEMIA PROTOCOL Enoxaparin Sodium (Lovenox Inj) 40 mg SQ DAILY [facility] Last Admin: 10/20/17 11:01 Dose: 40 mg Furosemide (Lasix) 20 mg PO DAILY [facility] Last Admin: 10/20/17 09:47 Dose: 20 mg Glucagon (Glucagon Inj) 1 mg OTHER PRN PRN PRN Reason: for Hypoglycemia Protocol Oxacillin Sodium 2 gm/ Sodium (Chloride) 100 mls @ 200 mls/hr IV.SIG Q4H [facility] Last Admin: 10/20/17 11:02 Dose: 200 mls/hr Sodium Phosphate 30 mmol/ (Sodium Chloride) 260 mls @ 42 mls/hr IV.SIG UNSCH PRN PRN Reason: For Phosphorus < 2.5 mg/dL Insulin Aspart (Novolog Insulin Correctional Sugar Inj) 0 unit SQ ACHS [facility]; Protocol Last Admin: 10/20/17 10:53 Dose: 25 unit Insulin Detemir (Levemir Inj) 14 unit SQ DAILY [facility] Last Admin: 10/20/17 10:54 Dose: 14 unit Lactulose (Lactulose Liq) 30 ml PO DAILY PRN PRN Reason: SEVERE CONSITIPATION Last Admin: 10/08/17 17:04 Dose: 30 ml Lorazepam (Ativan) 1 mg PO Q8H PRN PRN Reason: ANXIETY Last Admin: 10/20/17 10:55 Dose: 1 mg Magnesium Oxide (Mag-Ox) 800 mg PO UNSCH PRN PRN Reason: For Magnesium 1.2 - 1.6 mg/dL Miscellaneous (Pill Splitter) 1 [facility] Morphine Sulfate (Morphine Inj) 2 mg IV.PUSH Q2H PRN PRN Reason: PAIN SCALE 6 TO 10 Last Admin: 10/11/17 04:30 Dose: 2 mg Nitroglycerin (Nitrostat Sl) 0.4 mg SL Q5M PRN PRN Reason: CHEST PAIN Ondansetron HCl (Zofran Inj) 4 mg IV.PUSH Q6H PRN PRN Reason: NAUSEA OR VOMITING Last Admin: 10/10/17 03:26 Dose: 4 mg Pantoprazole Sodium (Protonix) 40 mg PO DAILY [facility] Last Admin: 10/20/17 09:46 Dose: 40 mg Polyethylene Glycol (Miralax) 17 gm PO DAILY [facility] Last Admin: 10/20/17 09:47 Dose: Not Given Senna/Docusate Sodium (Zenaida-Colace) 1 tab PO BID [facility] Last Admin: 10/20/17 09:47 Dose: Not Given Sennosides (Senokot) 17.2 mg PO Q12H PRN PRN Reason: Moderate Constipation Sodium Chloride (Ns Flush) 2 ml IV.FLUSH BID [facility] Last Admin: 10/20/17 09:47 Dose: 2 ml Sodium Chloride (Ns Flush) 2 ml IV.FLUSH PRN PRN PRN Reason: FLUSH AFTER USING IV ACCESS Sodium Chloride (Ns Flush) 2 ml IV.FLUSH PRN PRN PRN Reason: FLUSH AFTER USING IV ACCESS Sodium Chloride (Ns Flush) 2 ml IV.FLUSH BID [facility] Last Admin: 10/20/17 09:47 Dose: 2 ml Sodium Chloride (Ns Flush) 2 ml IV.FLUSH BID [facility] Last Admin: 10/20/17 10:54 Dose: 2 ml Sodium Chloride (Ns Flush) 2 ml IV.FLUSH PRN PRN PRN Reason: FLUSH AFTER USING IV ACCESS Allergies Allergy/AdvReac Type Severity Reaction Status Date / Time potassium iodide Allergy Severe Swelling Verified 10/06/17 09:36 povidone-iodine Allergy Severe Swelling Verified 10/06/17 09:36 shellfish derived Allergy Severe Swelling Verified 10/06/17 09:36 sodium iodide Allergy Severe Swelling Verified 10/06/17 09:36 sodium iodide Allergy Severe Swelling Verified 10/06/17 09:36 Home Medications Medication Instructions Recorded Confirmed Type atorvastatin 40 mg PO DAILY 10/06/17 10/06/17 History carvedilol 6.25 mg PO BID 10/06/17 10/06/17 History glyburide 2.5 mg PO BID 10/06/17 10/06/17 History lisinopril 20 mg PO DAILY 10/06/17 10/06/17 History magnesium oxide 400 mg PO BID 10/06/17 10/06/17 History metformin 850 mg PO TID 10/06/17 10/06/17 History nitroglycerin [Nitrostat] 0.4 mg SUBLINGUAL Q5-15M PRN 10/06/17 10/06/17 History pravastatin 40 mg PO DAILY 10/06/17 10/06/17 History spironolactone 50 mg PO DAILY 10/06/17 10/06/17 History Results - Labs CBC & Chem 7: 10/20/17 06:35 10/20/17 06:35 Laboratory Results - last 24 hr 10/19/17 10/19/17 10/19/17 12:22 17:06 19:57 WBC RBC Hgb Hct MCV MCH MCHC RDW Plt Count MPV Neut % (Auto) Lymph % (Auto) [place] % (Auto) Eos % (Auto) Baso % (Auto) Neut # (Auto) Lymph # (Auto) [place] # (Auto) Eos # (Auto) Baso # (Auto) WBC Differential Differential Comment Sodium Potassium Chloride Carbon Dioxide Anion Gap BUN Creatinine Estimated GFR POC Glucose 334 H 341 H 383 H Random Glucose Calcium C-Reactive Protein 10/20/17 10/20/17 10/20/17 06:35 06:35 09:43 WBC 6.4 RBC 3.99 L Hgb 11.4 L Hct 33.7 L MCV 84.3 MCH 28.4 MCHC 33.8 RDW 14.7 Plt Count 283 MPV 7.9 Neut % (Auto) 66.0 Lymph % (Auto) 21.9 [place] % (Auto) 8.9 H Eos % (Auto) 1.9 Baso % (Auto) 1.3 Neut # (Auto) 4.2 Lymph # (Auto) 1.4 [place] # (Auto) 0.6 Eos # (Auto) 0.1 Baso # (Auto) 0.1 WBC Differential . Differential Comment Auto diff final Sodium 137 Potassium 4.2 Chloride 104 Carbon Dioxide 23.8 Anion Gap 9 BUN 23 H Creatinine 1.09 Estimated GFR 69 L POC Glucose 363 H Random Glucose 267 H Calcium 9.1 C-Reactive Protein 0.84 H Microbiology 10/18/17 11:02 Wound - Other Gram Stain - Final 10/18/17 11:02 Wound - Other Wound Culture - Preliminary Staphylococcus species 10/18/17 11:02 Other Fungal Smear - Final No fungal elements seen - Imaging Abdomen/Pelvis CT 10/06/17 00:00 CONCLUSION: 1. No acute abnormality seen. 2. Increased density at the posterior lower lobes likely related to mild atelectasis. 3. Scattered atherosclerotic calcifications throughout the arterial system. 4. Degenerative and postsurgical change in the lumbar spine. Foot X-Ray 10/15/17 00:00 CONCLUSION: 1. Status post amputation of the second digit. 2. Mild osteoarthritic change. 3. No evidence to suggest osteomyelitis. SPECT Scan-Bone NM 10/17/17 00:00 CONCLUSION: Likely osteomyelitis 2nd metatarsal head Chest X-Ray 10/18/17 11:21 CONCLUSION: Negative for pneumothorax. Mild compensated cardiomegaly. - Procedures CARA/ s/p ICD and lead removal. Assessment and Plan - Assessment (1) Acute osteomyelitis of metatarsal bone of right foot Code(s): M86.171 - Other acute osteomyelitis, right ankle and foot Status: Acute Plan: Since pacemaker has been removed, ordering MRI R foot to evaluate further and compare. Possible Right distal 2nd metatarsal resection, bone biopsy, and possible partial 3rd ray amputation discussed with patient in attempt to allow for closure of wound. Discussed with patient that closure of wound would be optimal for him prior to discharge from hospital. NPO after midnight. Surgery tentatively [address] Miranda MRI R foot with/without contrast ordered and will be reviewed prior to surgery.
--- NOTE | 2017-10-20 13:07 | P.PNCA ---
Subjective Interval history: appears comfortable in nad, assymptomatic Physical Exam Vital signs: Vital Signs 10/19/17 15:00 10/19/17 16:00 10/19/17 20:00 Temperature 98.3 F Pulse Rate 82 74 78 Respiratory Rate 18 Blood Pressure 114/67 Pulse Oximetry 97 10/19/17 21:00 10/19/17 23:00 10/20/17 00:00 Temperature 97.4 F L 97.6 F Pulse Rate 81 74 80 Respiratory Rate 20 20 Blood Pressure 121/72 117/74 Pulse Oximetry 99 98 10/20/17 03:00 10/20/17 04:00 10/20/17 07:00 Temperature 97.4 F L 97.4 F L Pulse Rate 70 78 77 Respiratory Rate 20 18 Blood Pressure 116/74 104/67 Pulse Oximetry 99 97 Intake & Output 10/19/17 10/20/17 10/20/17 18:59 06:59 18:59 Intake Total 740 / 740 982 / 982 Output Total 1150 / 1150 500 / 500 Balance -410 / -410 482 / 482 Weight 82.8 kg Intake: IV 200 / 200 400 / 400 Prostaphlin Inj 2 GM In NS Inj 200 / 200 400 / 400 100 ML @ 200 mls/hr IV.SIG Q4H JEFE Rx#:[id number] Oral 240 / 240 582 / 582 Anesthesia Amount 100 / 100 Other 200 / 200 Output: Urine 1100 / 1100 500 / 500 Estimated Blood Loss 50 / 50 Other: # Voids 3 2 Date of Last Bowel Movement 10/17/17 # Bowel Movements 1 1 Assessment and Plan - Assessment (1) ACS (acute coronary syndrome) Code(s): I24.9 - Acute ischemic heart disease, unspecified Status: Acute (2) Acidosis, lactic Code(s): E87.2 - Acidosis Status: Acute (3) DKA (diabetic ketoacidoses) Code(s): E13.10 - Other specified diabetes mellitus with ketoacidosis without coma Status: Acute (4) Frequent unifocal PVCs Code(s): I49.3 - Ventricular premature depolarization Status: Acute - Plan 1.) Ischemic cardiomyopathy - consult case management for transfer for heart transplant eval and palliative care, d/w Dr Fernando and nurse; he appears to assymptomatic when not tachycardic, prognosis is poor 2.) SBE - pod #2 s/p lead and icd extraction per Dr Cunha 10/18/17, appears to be clinically improving and stable, abs per ID, then life vest
[2017-10-20] MEDS ORDERED: Gadobutrol PF 10 MMOL/10 ML Vial (for RAD) IV.SIG ONE (16:53)
--- NOTE | 2017-10-20 17:38 | MR ---
EXAM DATE: 10/20/2017 5:12 PM EDT AGE/SEX: 57 years / Male INDICATIONS: Osteomyelitis. CLINICAL DATA: This is the patient's initial encounter. Patient reports that signs and symptoms have been present for 2 months and indicates a pain score of 0/10. MEDICAL/SURGICAL HISTORY: Diabetes mellitus type II. Hypertension. Fusion, lumbar. Appendecto my. CABG. AICD placed/removed. COMPARISON: [facility] – [place], MRI FOOT RIGHT W & W/O CONTRAST, 08/15/2017. . TECHNIQUE: Multiplanar, multisequence MRI examination was performed without contrast and after th e intravenous administration of 8 ml Gadavist (gadobutrol) single exam dose. FINDINGS: There is edema involving the distal portions of the second and third metatarsal bones without any abn ormal enhancement. Similar finding is present involving the fifth distal metatarsal bone. There is of the marrow appears intact. There is no evidence for soft tissue abscess. CONCLUSION: 1. Slight degree of nonspecific edema involving the distal portions of the second third and fifth me tatarsal bones not present on the prior study unusual to represent osteomyelitis and the rest of the marrow appears intact. Findings could be further characterized with white blood cell scan based on cl inical grounds. Electronically signed by: Santiago Burt MD 10/20/2017 5:37 PM EDT
[2017-10-20] MEDS: Hypromellose 0.3% Opth Gel 10 GM Bottle EACH EYE SCH (20:28)
--- NOTE | 2017-10-21 13:35 | P.PNCA ---
Subjective Interval history: alert in nad, denies chest pain or dyspnea Physical Exam Vital signs: Vital Signs 10/20/17 15:00 10/20/17 16:00 10/20/17 19:50 Temperature 97.8 F Pulse Rate 85 73 77 Respiratory Rate 18 Blood Pressure 105/69 Pulse Oximetry 99 10/20/17 20:00 10/20/17 23:00 10/21/17 00:00 Temperature 97.9 F 97.5 F L Pulse Rate 77 83 83 Respiratory Rate 19 18 Blood Pressure 113/63 110/55 L Pulse Oximetry 95 97 10/21/17 03:00 10/21/17 04:00 10/21/17 08:00 Temperature 97.7 F 97.2 F L Pulse Rate 81 72 74 Respiratory Rate 18 18 Blood Pressure 163/78 H 120/67 Pulse Oximetry 97 97 10/21/17 12:00 Temperature 97.0 F L Pulse Rate 72 Respiratory Rate 18 Blood Pressure 124/68 Pulse Oximetry 98 Intake & Output 10/20/17 10/21/17 10/21/17 18:59 06:59 18:59 Intake Total 300 / 300 540 / 540 Balance 300 / 300 540 / 540 Weight 84.4 kg Intake: IV 300 / 300 300 / 300 Prostaphlin Inj 2 GM In NS Inj 300 / 300 300 / 300 100 ML @ 200 mls/hr IV.SIG Q4H JEFE Rx#:[id number] Oral 240 / 240 Other: # Voids 2 Date of Last Bowel Movement 10/17/17 Assessment and Plan - Assessment (1) ACS (acute coronary syndrome) Code(s): I24.9 - Acute ischemic heart disease, unspecified Status: Acute (2) Acidosis, lactic Code(s): E87.2 - Acidosis Status: Acute (3) DKA (diabetic ketoacidoses) Code(s): E13.10 - Other specified diabetes mellitus with ketoacidosis without coma Status: Acute (4) Frequent unifocal PVCs Code(s): I49.3 - Ventricular premature depolarization Status: Acute - Plan 1.) Ischemic cardiomyopathy - consult case management for transfer for heart transplant eval and palliative care, d/w Dr Fernando and nurse; he appears to assymptomatic when not tachycardic, prognosis is poor 2.) SBE - pod #3 s/p lead and icd extraction per Dr Cunha 10/18/17, appears to be clinically improving and stable, abs per ID, then life vest
[2017-10-21] MEDS: Insulin NovoLOG Aspart Correctional Sugar Inj SQ SCH ×3 (13:41→23:23)
[2017-10-21] MEDS: Carvedilol 6.25 MG Tablet PO SCH ×2 (13:42→22:18)
[2017-10-21] MEDS: Furosemide 20 MG Tablet PO SCH (13:42)
[2017-10-21] MEDS: Insulin Detemir Inj 1,000 UNIT/10 ML Vial SQ SCH (13:43)
[2017-10-21] MEDS: Enoxaparin Inj 40 MG/0.4 ML Syringe SQ SCH (13:43)
[2017-10-21] MEDS: Polyethylene Glycol 3350 17 GM Packet PO SCH (13:44)
[2017-10-21] MEDS: Senna/Docusate Sodium 8.6/50 MG Tablet PO SCH ×2 (13:45→22:19)
[2017-10-21] MEDS: Collagenase Oint 30 GM Tube TOPICAL SCH (13:46)
--- NOTE | 2017-10-21 14:25 | P.PN ---
Subjective Interval history: f/u: endocarditis/ bacteremia in no acute distress. looks comfortable with no chest pain or sob. afebrile. no new complaints. Physical Exam Vital signs: Vital Signs 10/20/17 15:00 10/20/17 16:00 10/20/17 19:50 Temperature 97.8 F Pulse Rate 85 73 77 Respiratory Rate 18 Blood Pressure 105/69 Pulse Oximetry 99 10/20/17 20:00 10/20/17 23:00 10/21/17 00:00 Temperature 97.9 F 97.5 F L Pulse Rate 77 83 83 Respiratory Rate 19 18 Blood Pressure 113/63 110/55 L Pulse Oximetry 95 97 10/21/17 03:00 10/21/17 04:00 10/21/17 08:00 Temperature 97.7 F 97.2 F L Pulse Rate 81 72 74 Respiratory Rate 18 18 Blood Pressure 163/78 H 120/67 Pulse Oximetry 97 97 10/21/17 12:00 Temperature 97.0 F L Pulse Rate 72 Respiratory Rate 18 Blood Pressure 124/68 Pulse Oximetry 98 Intake & Output 10/20/17 10/21/17 10/21/17 18:59 06:59 18:59 Intake Total 300 / 300 540 / 540 Balance 300 / 300 540 / 540 Weight 84.4 kg Intake: IV 300 / 300 300 / 300 Prostaphlin Inj 2 GM In NS Inj 300 / 300 300 / 300 100 ML @ 200 mls/hr IV.SIG Q4H [facility]FE Rx#:[id number] Oral 240 / 240 Other: # Voids 2 Date of Last Bowel Movement 10/17/17 Narrative: GENERAL: 57-year-old male, well-developed, well-nourished, in no acute distress. CARDIAC: AICD removed from the left upper chest. Regular rhythm, regular rate. LUNGS: Clear to auscultation bilaterally. No wheeze, rhonchi or rales. ABDOMEN: Bowel sounds present. No distention. EXTREMITIES: No edema. Bandage on right foot, CDI. NEUROLOGY: Awake and alert. No focal deficits. Muscle strength 5/5 in upper and lower extremities bilaterally. Results - Labs CBC & Chem 7: 10/20/17 06:35 10/20/17 06:35 Laboratory Results - last 24 hr 10/20/17 10/20/17 10/20/17 13:31 17:11 19:34 POC Glucose 382 H 296 H 243 H 10/21/17 10/21/17 07:27 11:40 POC Glucose 266 H 235 H Microbiology 10/18/17 11:02 Wound - Other Gram Stain - Final 10/18/17 11:02 Wound - Other Wound Culture - Final Staphylococcus aureus 10/18/17 11:02 Other Acid Fast Bacilli Smear - Final No acid fast bacilli seen - Imaging Impressions Foot MRI 10/20/17 00:00 CONCLUSION: 1. Slight degree of nonspecific edema involving the distal portions of the second third and fifth metatarsal bones not present on the prior study unusual to represent osteomyelitis and the rest of the marrow appears intact. Findings could be further characterized with white blood cell scan based on clinical grounds. - Procedures CARA/ s/p ICD and lead removal. Assessment and Plan - Plan Non-ST elevated myocardial infarction Systolic CHF with severely reduced EF of 25-30% -Patient did have serial cardiac enzymes performed which did show a significant elevation up to 7.05 now going down to 2.63 -Cardiology has been consulted and says he is not a candidate for cardiac catheterization. They recommended palliative care or referral for heart transplant work-up. -continue aspirin, statin and coreg -Continue oxygen as needed. -Continue monitor telemetry -s/p removal of the ICD; needs life vest. Bacteremia -High-grade MSSA infection from PICC line. -PICC line has been removed. Patient with MSSA high grade bactermia 2/2 PICC line -continue Oxacillin Recent osteomyelitis 2 nd toe sp amputation Consulted podiatry for evaluation patient. MRI ordered. continue antibiotic per ID SPECT Scan-Bone NM 10/17/17 00:00 CONCLUSION: Likely osteomyelitis 2nd metatarsal head Possible Right distal 2nd metatarsal resection, bone biopsy, and possible partial 3rd ray amputation discussed with patient in attempt to allow for closure of wound. 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 Sepsis, resolved -Patient did meet criteria on presentation with leukocytosis, lactic acidosis, source of infection -Patient was started on empiric antibiotics include vancomycin, Zosyn, now on oxacillin as patient with MSSA bacteremia -Patient was pancultured and found to have bacteremia as above -continue abx per ID Anxiety The pt has episodes of shaking and respiratory distress that may be s/t anxiety. - Ativan as needed. Diabetic ketoacidosis, uncontrolled diabetes, improved -Status post insulin drip -Hemoglobin A1c 8.2 -Continue sliding scale insulin and levemir; Levemir increased to 14 units subq daily 10/20, currently NPO. Continue to monitor blood glucose Metabolic/toxic encephalopathy, likely secondary to infection, diabetic ketoacidosis, resolved Acute renal failure superimposed on chronic kidney disease stage II, improved -BRIANA inhibitor has been held -Avoid nephrotoxins DVT prevention -Patient is on Lovenox Sub Q daily palliative care following, patient would like to continue aggressive care Discharge Planning: case management consulted for life vest.
[2017-10-21] MEDS ORDERED: Ketamine Inj 50 MG/5 ML Syringe IV.PUSH ONE (15:38)
[2017-10-21] MEDS ORDERED: Bupivacaine PF 0.25% Inj 30 ML Vial ONE (15:55)
[2017-10-21] MEDS ORDERED: Lidocaine 2%/Epinephrine 1:200,000 PF Inj 20 ML Vial ONE (15:57)
--- NOTE | 2017-10-21 16:23 | P.PNPOD ---
Subjective Interval history: Patient seen in preop. Patient agrees to planned procedure. Denies any chest pain. Understands procedure will be performed under local anesthesia. Physical Exam Vital signs: Vital Signs 10/20/17 19:50 10/20/17 20:00 10/20/17 23:00 Temperature 97.9 F 97.5 F L Pulse Rate 77 77 83 Respiratory Rate 19 18 Blood Pressure 113/63 110/55 L Pulse Oximetry 95 97 10/21/17 00:00 10/21/17 03:00 10/21/17 04:00 Temperature 97.7 F Pulse Rate 83 81 72 Respiratory Rate 18 Blood Pressure 163/78 H Pulse Oximetry 97 10/21/17 08:00 10/21/17 12:00 Temperature 97.2 F L 97.0 F L Pulse Rate 74 72 Respiratory Rate 18 18 Blood Pressure 120/67 124/68 Pulse Oximetry 97 98 Intake & Output 10/20/17 10/21/17 10/21/17 18:59 06:59 18:59 Intake Total 300 / 300 540 / 540 Balance 300 / 300 540 / 540 Weight 84.4 kg Intake: IV 300 / 300 300 / 300 Prostaphlin Inj 2 GM In NS Inj 300 / 300 300 / 300 100 ML @ 200 mls/hr IV.SIG Q4H JEFE Rx#:[id number] Oral 240 / 240 Other: # Voids 2 Date of Last Bowel Movement 10/17/17 Narrative: Dressing to right foot clean dry and intact. SENIOR BIOSTATISTICIAN/GROUP LEADER under 3 secs to digits x4. Medications and Allergies Active Medications: Active Medications Acetaminophen (Tylenol) 650 mg PO Q6H PRN PRN Reason: PAIN 1-10 AND/OR FEVER >101F Hydrocodone Bitart/Acetaminophen (Lorraine 5/325) 1 tab PO Q4H PRN PRN Reason: PAIN SCALE 1 TO 5 Last Admin: 10/08/17 21:04 Dose: 1 tab Al Hydroxide/Mg Hydroxide (Milk Of Magnesia Liq) 30 ml PO Q12H PRN PRN Reason: Mild Constipation Albuterol (Albuterol Neb (Prn)) 2.5 mg NEB Q2HR NEB PRN PRN Reason: SHORTNESS OF BREATH/WHEEZING Last Admin: 10/13/17 19:50 Dose: 2.5 mg Artificial Tears (Genteal Severe Dry Eye Relief 0.3% Opth Gel) 1 drops EACH EYE HS [facility] Last Admin: 10/20/17 20:28 Dose: Not Given Aspirin (Ecotrin) 325 mg PO DAILY [facility] Last Admin: 10/21/17 13:42 Dose: Not Given Atorvastatin Calcium (Lipitor) 40 mg PO DAILY [facility] Last Admin: 10/21/17 13:43 Dose: Not Given Bisacodyl (Dulcolax Supp) 10 mg RECTAL DAILY PRN PRN Reason: SEVERE CONSITIPATION Carvedilol (Coreg) 6.25 mg PO BID [facility] Last Admin: 10/21/17 13:42 Dose: Not Given Chlorhexidine Gluconate (Hibiclens 4% Topical) 1 applicatio TOPICAL FIBER MACHINE TENDER [facility] Stop: 10/22/17 08:40 Chlorhexidine Gluconate (Hibiclens 4% Topical) 1 applicatio TOPICAL FIBER MACHINE TENDER [facility] Stop: 10/22/17 15:37 Collagenase (Santyl Oint) 1 applicatio TOPICAL DAILY [facility] Last Admin: 10/21/17 13:46 Dose: 1 applicatio Sodium Chloride 500 ml/ (Cefazolin Sodium 500 mg) 0 ml IRRIGATION FIBER MACHINE TENDER [facility] Stop: 10/22/17 08:41 Sodium Chloride 500 ml/ (Cefazolin Sodium 500 mg) 0 ml IRRIGATION FIBER MACHINE TENDER [facility] Stop: 10/22/17 15:39 Cyclobenzaprine HCl (Flexeril) 5 mg PO Q8H PRN PRN Reason: muscle relaxer Last Admin: 10/20/17 09:46 Dose: 5 mg Dextrose (D50w Vial) 50 ml IV.PUSH UNSCH PRN PRN Reason: PER HYPOGLYCEMIA PROTOCOL Enoxaparin Sodium (Lovenox Inj) 40 mg SQ DAILY [facility] Last Admin: 10/21/17 13:43 Dose: Not Given Furosemide (Lasix) 20 mg PO DAILY [facility] Last Admin: 10/21/17 13:42 Dose: Not Given Glucagon (Glucagon Inj) 1 mg OTHER PRN PRN PRN Reason: for Hypoglycemia Protocol Oxacillin Sodium 2 gm/ Sodium (Chloride) 100 mls @ 200 mls/hr IV.SIG Q4H [facility] Last Admin: 10/21/17 13:52 Dose: 200 mls/hr Sodium Phosphate 30 mmol/ (Sodium Chloride) 260 mls @ 42 mls/hr IV.SIG UNSCH PRN PRN Reason: For Phosphorus < 2.5 mg/dL Insulin Aspart (Novolog Insulin Correctional Sugar Inj) 0 unit SQ ACHS [facility]; Protocol Last Admin: 10/21/17 13:41 Dose: Not Given Insulin Detemir (Levemir Inj) 14 unit SQ DAILY [facility] Last Admin: 10/21/17 13:43 Dose: Not Given Lactulose (Lactulose Liq) 30 ml PO DAILY PRN PRN Reason: SEVERE CONSITIPATION Last Admin: 10/08/17 17:04 Dose: 30 ml Lorazepam (Ativan) 1 mg PO Q8H PRN PRN Reason: ANXIETY Last Admin: 10/20/17 20:27 Dose: 1 mg Magnesium Oxide (Mag-Ox) 800 mg PO UNSCH PRN PRN Reason: For Magnesium 1.2 - 1.6 mg/dL Miscellaneous (Pill Splitter) 1 each OTHER [facility] Morphine Sulfate (Morphine Inj) 2 mg IV.PUSH Q2H PRN PRN Reason: PAIN SCALE 6 TO 10 Last Admin: 10/11/17 04:30 Dose: 2 mg Nitroglycerin (Nitrostat Sl) 0.4 mg SL Q5M PRN PRN Reason: CHEST PAIN Ondansetron HCl (Zofran Inj) 4 mg IV.PUSH Q6H PRN PRN Reason: NAUSEA OR VOMITING Last Admin: 10/10/17 03:26 Dose: 4 mg Pantoprazole Sodium (Protonix) 40 mg PO DAILY [facility] Last Admin: 10/21/17 13:45 Dose: Not Given Polyethylene Glycol (Miralax) 17 gm PO DAILY [facility] Last Admin: 10/21/17 13:44 Dose: Not Given Senna/Docusate Sodium (Zenaida-Colace) 1 tab PO BID [facility] Last Admin: 10/21/17 13:45 Dose: Not Given Sennosides (Senokot) 17.2 mg PO Q12H PRN PRN Reason: Moderate Constipation Sodium Chloride (Ns Flush) 2 ml IV.FLUSH BID [facility] Last Admin: 10/21/17 13:45 Dose: 2 ml Sodium Chloride (Ns Flush) 2 ml IV.FLUSH PRN PRN PRN Reason: FLUSH AFTER USING IV ACCESS Sodium Chloride (Ns Flush) 2 ml IV.FLUSH PRN PRN PRN Reason: FLUSH AFTER USING IV ACCESS Sodium Chloride (Ns Flush) 2 ml IV.FLUSH BID [facility] Last Admin: 10/21/17 13:45 Dose: 2 ml Sodium Chloride (Ns Flush) 2 ml IV.FLUSH BID [facility] Last Admin: 10/21/17 13:45 Dose: 2 ml Sodium Chloride (Ns Flush) 2 ml IV.FLUSH PRN PRN PRN Reason: FLUSH AFTER USING IV ACCESS Allergies Allergy/AdvReac Type Severity Reaction Status Date / Time potassium iodide Allergy Severe Swelling Verified 10/06/17 09:36 povidone-iodine Allergy Severe Swelling Verified 10/06/17 09:36 shellfish derived Allergy Severe Swelling Verified 10/06/17 09:36 sodium iodide Allergy Severe Swelling Verified 10/06/17 09:36 sodium iodide Allergy Severe Swelling Verified 10/06/17 09:36 Home Medications Medication Instructions Recorded Confirmed Type atorvastatin 40 mg PO DAILY 10/06/17 10/06/17 History carvedilol 6.25 mg PO BID 10/06/17 10/06/17 History glyburide 2.5 mg PO BID 10/06/17 10/06/17 History lisinopril 20 mg PO DAILY 10/06/17 10/06/17 History magnesium oxide 400 mg PO BID 10/06/17 10/06/17 History metformin 850 mg PO TID 10/06/17 10/06/17 History nitroglycerin [Nitrostat] 0.4 mg SUBLINGUAL Q5-15M PRN 10/06/17 10/06/17 History pravastatin 40 mg PO DAILY 10/06/17 10/06/17 History spironolactone 50 mg PO DAILY 10/06/17 10/06/17 History Results - Labs CBC & Chem 7: 10/20/17 06:35 10/20/17 06:35 Laboratory Results - last 24 hr 10/20/17 10/20/17 10/21/17 17:11 19:34 07:27 POC Glucose 296 H 243 H 266 H 10/21/17 11:40 POC Glucose 235 H Microbiology 10/18/17 11:02 Wound - Other Gram Stain - Final 10/18/17 11:02 Wound - Other Wound Culture - Final Staphylococcus aureus 10/18/17 11:02 Other Acid Fast Bacilli Smear - Final No acid fast bacilli seen - Imaging Impressions Foot MRI 10/20/17 00:00 CONCLUSION: 1. Slight degree of nonspecific edema involving the distal portions of the second third and fifth metatarsal bones not present on the prior study unusual to represent osteomyelitis and the rest of the marrow appears intact. Findings could be further characterized with white blood cell scan based on clinical grounds. - Procedures CARA/ s/p ICD and lead removal. Assessment and Plan - Assessment (1) Acute osteomyelitis of metatarsal bone of right foot Code(s): M86.171 - Other acute osteomyelitis, right ankle and foot Status: Acute - Plan 57 year old male with left second Patient examined and evaluated Patient to OR for left second metatarsal head resection, left third ray resection second to closure and deformity, possible wound vac placement Patient agrees with planned procedure Understands all risks, benefits and complications Consent obtained Patient has remained NPO RLE marked
--- NOTE | 2017-10-21 17:52 | P.PCN ---
Date of procedure: 10/21/17 Pre-op diagnosis: Right second metatarsal osteomyelitis; Right third digit deformity, ulcer Post-op diagnosis: same Procedure: Right second metatarsal head resection Right third ray amputation Anesthesia: local Surgeon: Nyla Miranda Estimated blood loss (mL): 50 Pathology: other (Right third ray, right second met, right second met proximal clearing margin) Condition: stable Disposition: PACU (with vital signs stable and NVS intact)
[2017-10-21] MEDS ORDERED: Misc Info for Pharmacy OTHER STA (17:55)
--- NOTE | 2017-10-21 18:29 | MR ---
cc: Nyla Miranda DPM DATE: 10/21/2017 SURGEON: Nyla Miranda DPM SOLAR SALES ADVISOR: None. PREOPERATIVE DIAGNOSES: 1. Right foot second metatarsal osteomyelitis. 2. Right foot third digit ulcerations with deformity present. POSTOPERATIVE DIAGNOSES: 1. Right foot second metatarsal osteomyelitis. 2. Right foot third digit ulcerations with deformity present. PROCEDURE PERFORMED: 1. Right second metatarsal resection. 2. Right third ray resection. ANESTHESIA: None. Popliteal block performed by Anesthesia. HEMOSTASIS: None. ESTIMATED BLOOD LOSS: 50 mL. MATERIALS: 2-0 Vicryl, 2-0 Prolene and Hemovac drain. INJECTABLES: 20 mL of 0.5% Marcaine plain infiltrated about the right foot. COMPLICATIONS: None. INDICATION FOR PROCEDURE: The patient is a 57-year-old male with nonhealing second digit amputation performed by an outside stopper maker. The patient presented with ulceration which was nonhealing as well as pain and drainage to the foot. MRI +3 phase bone scan, both positive for osteomyelitis to right second metatarsal head, right third digit was noted to have ulcerations and deformity. Discussed with the patient alternatives, benefits, risks, and complications. Discussed with the patient benefits of primary closure as he does have a history of nonhealing ulcers. The patient agrees to right third digit amputation as there is significant deformity and ulcerations, to aid in closure and also because right third digit is not viable and will have definite future complications. DESCRIPTION OF PROCEDURE: The patient was brought back to the operating room, placed on the operating room table in supine position and block was performed by Anesthesia. Right foot was prepped and draped in the usual sterile manner. Prior to prep, a Pneumatic well padded ankle tourniquet was placed; however, it was not inflated. At this time, a 2 cm linear incision was made over the second interspace. This incision was deepened through skin and subcutaneous tissue with care to retract all vital neurovascular structures. Second and third metatarsal head were exposed. Racquet shaped incision was performed, communicating with interspace incision about the third digit. This was deepened through skin and subcutaneous tissue with care to retract all vital neurovascular structures. The metatarsophalangeal joint was identified to right third digit, medial collateral ligaments were transected and the right third digit was passed off the field. Once the right third digit was passed off the field, a sagittal saw was utilized to resect the second and third metatarsals. They were both sent for pathology as well as right third digit. The site was then copiously irrigated. Following copious irrigation, proximal clearing margin was taken of second metatarsal for pathology and micro. Hemovac was then applied to site. A 2-0 Vicryl was used to close subcutaneous tissue and 2-0 Prolene was used to close skin. Primary closure was obtained. There was Adaptic, 4 x 4s, cast padding, Fabrice applied to the right lower extremity. The patient tolerated procedure and anesthesia well. He was transferred from the OR to PACU with vital signs stable and neurovascular status intact to the right foot. SHARON Omer , 05:47 PM , 05:59 PM SHERIE
--- NOTE | 2017-10-21 18:52 | XR ---
EXAM DATE: 10/21/2017 6:16 PM EDT AGE/SEX: 57 years / Male INDICATIONS: Post right foot surgery CLINICAL DATA: This is the patient's subsequent encounter. Patient reports that signs and symptoms h ave been present for 3 days and indicates a pain score of 0/10. MEDICAL/SURGICAL HISTORY: . Hepatitis C. Congestive heart failure. Diabetes mellitus type II. COPD. . . Pacemaker. Amputated toe COMPARISON: [facility] [place], FOOT LIMITED RIGHT 2V, 10/15/2017. . FINDINGS: There is amputation of the second and third toes and distal second and third metatarsals. Coiled wire in noted at the amputation site. No acute fracture or dislocation. No bony destructive changes in th e remaining bony structures. CONCLUSION: Amputation of the second and third toes and distal metatarsals as above. Electronically signed by: Sharif Eastman MD 10/21/2017 6:51 PM EDT
[2017-10-21] MEDS: Hypromellose 0.3% Opth Gel 10 GM Bottle EACH EYE SCH (22:19)
[2017-10-21] MEDS: LORazepam 1 MG Tablet PO PRN (22:22)
[2017-10-22] MEDS: Morphine Sulfate Inj 2 MG/ML Vial IV.PUSH PRN ×3 (07:58→20:13)
[2017-10-22 08:49] LABS: Baso # (Auto) 0.1 th/mm3 (0.0-0.2); Eos # (Auto) 0.1 th/mm3 (0.0-0.4); Eos % (Auto) 1.3 % (0.0-4.0); Hematocrit 35.4 % (39.0-51.0); Lymph # (Auto) 1.7 th/mm3 (1.0-4.8); Lymph % (Auto) 19.9 % (9.0-44.0); Mean Corpuscular Hemoglobin 28.9 pg (27.0-34.0); Mean Platelet Volume 8.4 fL (7.0-11.0); Mono % (Auto) 11.1 % (0.0-8.0); Neut # (Auto) 5.8 th/mm3 (1.8-7.7); Neut % (Auto) 66.7 % (16.0-70.0); Platelet Count 357 th/mm3 (150-450); Red Blood Count 4.16 mil/mm3 (4.50-5.90); Red Cell Distribution Width 14.8 % (11.6-17.2); White Blood Count 8.6 th/mm3 (4.0-11.0)
[2017-10-22 09:02] LABS: Calcium 9.5 mg/dL (8.5-10.1); Carbon Dioxide 25.9 meq/L (21.0-32.0); Potassium 4.2 meq/L (3.5-5.1)
[2017-10-22] MEDS: Carvedilol 6.25 MG Tablet PO SCH ×2 (09:25→20:22)
[2017-10-22] MEDS: Furosemide 20 MG Tablet PO SCH (09:25)
[2017-10-22] MEDS: Senna/Docusate Sodium 8.6/50 MG Tablet PO SCH ×2 (09:26→20:14)
[2017-10-22] MEDS: Insulin NovoLOG Aspart Correctional Sugar Inj SQ SCH ×4 (09:26→20:18)
[2017-10-22] MEDS: Insulin Detemir Inj 1,000 UNIT/10 ML Vial SQ SCH (09:26)
[2017-10-22] MEDS: Polyethylene Glycol 3350 17 GM Packet PO SCH (09:27)
[2017-10-22] MEDS: Enoxaparin Inj 40 MG/0.4 ML Syringe SQ SCH (09:27)
[2017-10-22] MEDS: Collagenase Oint 30 GM Tube TOPICAL SCH (10:40)
--- NOTE | 2017-10-22 12:34 | P.PN ---
Subjective Interval history: f/u: endocarditis/ bacteremia in no acute distress. afebrile. no new complaints. Physical Exam Vital signs: Vital Signs 10/21/17 16:00 10/21/17 17:38 10/21/17 17:45 Temperature 97.5 F L Pulse Rate 73 73 74 Respiratory Rate 15 19 Blood Pressure 146/74 H 135/73 Pulse Oximetry 99 98 10/21/17 18:00 10/21/17 18:15 10/21/17 18:19 Temperature 97.6 F Pulse Rate 72 72 Respiratory Rate 19 15 Blood Pressure 140/78 138/83 Pulse Oximetry 98 99 99 10/21/17 20:00 10/22/17 00:00 10/22/17 03:37 Temperature 98.2 F 98.1 F 97.6 F Pulse Rate 85 76 78 Respiratory Rate 18 16 16 Blood Pressure 147/67 H 130/60 108/65 Pulse Oximetry 100 97 98 10/22/17 08:00 Temperature 97.9 F Pulse Rate 84 Respiratory Rate 19 Blood Pressure 143/83 H Pulse Oximetry 97 Intake & Output 10/21/17 10/22/17 10/22/17 18:59 06:59 18:59 Intake Total 500 / 500 640 / 640 100 / 100 Output Total 50 / 50 700 / 700 Balance 450 / 450 -60 / -60 100 / 100 Weight 84.5 kg Intake: IV 100 / 100 400 / 400 100 / 100 Prostaphlin Inj 2 GM In NS Inj 100 / 100 400 / 400 100 / 100 100 ML @ 200 mls/hr IV.SIG Q4H [facility]FE Rx#:[id number] Oral 0 / 0 240 / 240 Anesthesia Amount 400 / 400 Output: Urine 700 / 700 Estimated Blood Loss 50 / 50 Other: # Voids 800 # Bowel Movements 1 Narrative: GENERAL: 57-year-old male, well-developed, well-nourished, in no acute distress. CARDIAC: AICD removed from the left upper chest. Regular rhythm, regular rate. LUNGS: Clear to auscultation bilaterally. No wheeze, rhonchi or rales. ABDOMEN: Bowel sounds present. No distention. EXTREMITIES: No edema. post-op dressing on right foot, CDI. NEUROLOGY: Awake and alert. No focal deficits. Muscle strength 5/5 in upper and lower extremities bilaterally. Results - Labs CBC & Chem 7: 10/22/17 07:00 10/22/17 07:00 Laboratory Results - last 24 hr 10/21/17 10/21/17 10/22/17 17:51 22:57 07:00 WBC 8.6 RBC 4.16 L Hgb 12.0 L Hct 35.4 L MCV 85.0 MCH 28.9 MCHC 34.0 RDW 14.8 Plt Count 357 MPV 8.4 Neut % (Auto) 66.7 Lymph % (Auto) 19.9 Sutter % (Auto) 11.1 H Eos % (Auto) 1.3 Baso % (Auto) 1.0 Neut # (Auto) 5.8 Lymph # (Auto) 1.7 Sutter # (Auto) 1.0 H Eos # (Auto) 0.1 Baso # (Auto) 0.1 WBC Differential . Differential Comment Auto diff final Sodium Potassium Chloride Carbon Dioxide Anion Gap BUN Creatinine Estimated GFR POC Glucose 247 H 276 H Random Glucose Calcium 10/22/17 10/22/17 10/22/17 07:00 07:52 11:47 WBC RBC Hgb Hct MCV MCH MCHC RDW Plt Count MPV Neut % (Auto) Lymph % (Auto) Sutter % (Auto) Eos % (Auto) Baso % (Auto) Neut # (Auto) Lymph # (Auto) Sutter # (Auto) Eos # (Auto) Baso # (Auto) WBC Differential Differential Comment Sodium 135 L Potassium 4.2 Chloride 102 Carbon Dioxide 25.9 Anion Gap 7 BUN 18 Creatinine 0.99 Estimated GFR 77 L POC Glucose 185 H 311 H Random Glucose 177 H Calcium 9.5 Microbiology 10/21/17 17:01 Tissue - Toe Gram Stain - Final 10/18/17 11:02 Wound - Other Gram Stain - Final 10/18/17 11:02 Wound - Other Wound Culture - Final Staphylococcus aureus - Imaging Impressions Foot X-Ray 10/21/17 00:00 CONCLUSION: Amputation of the second and third toes and distal metatarsals as above. - Procedures CARA/ s/p ICD and lead removal. Assessment and Plan - Plan Non-ST elevated myocardial infarction Systolic CHF with severely reduced EF of 25-30% -Patient did have serial cardiac enzymes performed which did show a significant elevation up to 7.05 now going down to 2.63 -Cardiology has been consulted and says he is not a candidate for cardiac catheterization. They recommended palliative care or referral for heart transplant work-up. -continue aspirin, statin and coreg -Continue oxygen as needed. -Continue monitor telemetry -s/p removal of the ICD; needs life vest. Bacteremia -High-grade MSSA infection from PICC line. -PICC line has been removed. Patient with MSSA high grade bacteremia 2/2 PICC line -continue Oxacillin Recent osteomyelitis 2 nd toe sp amputation Consulted podiatry for evaluation patient. MRI ordered. 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 Sepsis, resolved -Patient did meet criteria on presentation with leukocytosis, lactic acidosis, source of infection -Patient was started on empiric antibiotics include vancomycin, Zosyn, now on oxacillin as patient with MSSA bacteremia -Patient was pancultured and found to have bacteremia as above -continue abx per ID Anxiety The pt has episodes of shaking and respiratory distress that may be s/t anxiety. - Ativan as needed. Diabetic ketoacidosis, uncontrolled diabetes, improved -Status post insulin drip -Hemoglobin A1c 8.2 -Continue sliding scale insulin and levemir; Levemir increased to 14 units subq daily 10/20, currently NPO. Continue to monitor blood glucose Metabolic/toxic encephalopathy, likely secondary to infection, diabetic ketoacidosis, resolved Acute renal failure superimposed on chronic kidney disease stage II, improved -BRIANA inhibitor has been held -Avoid nephrotoxins DVT prevention -Patient is on Lovenox Sub Q daily palliative care following, patient would like to continue aggressive care Discharge Planning: case management consulted for life vest. Discussed case with supervising physician Dr. Jacques
--- NOTE | 2017-10-22 12:37 | P.PNCA ---
Subjective Interval history: alert in nad Physical Exam Vital signs: Vital Signs 10/21/17 16:00 10/21/17 17:38 10/21/17 17:45 Temperature 97.5 F L Pulse Rate 73 73 74 Respiratory Rate 15 19 Blood Pressure 146/74 H 135/73 Pulse Oximetry 99 98 10/21/17 18:00 10/21/17 18:15 10/21/17 18:19 Temperature 97.6 F Pulse Rate 72 72 Respiratory Rate 19 15 Blood Pressure 140/78 138/83 Pulse Oximetry 98 99 99 10/21/17 20:00 10/22/17 00:00 10/22/17 03:37 Temperature 98.2 F 98.1 F 97.6 F Pulse Rate 85 76 78 Respiratory Rate 18 16 16 Blood Pressure 147/67 H 130/60 108/65 Pulse Oximetry 100 97 98 10/22/17 08:00 Temperature 97.9 F Pulse Rate 84 Respiratory Rate 19 Blood Pressure 143/83 H Pulse Oximetry 97 Intake & Output 10/21/17 10/22/17 10/22/17 18:59 06:59 18:59 Intake Total 500 / 500 640 / 640 100 / 100 Output Total 50 / 50 700 / 700 Balance 450 / 450 -60 / -60 100 / 100 Weight 84.5 kg Intake: IV 100 / 100 400 / 400 100 / 100 Prostaphlin Inj 2 GM In NS Inj 100 / 100 400 / 400 100 / 100 100 ML @ 200 mls/hr IV.SIG Q4H JEFE Rx#:[id number] Oral 0 / 0 240 / 240 Anesthesia Amount 400 / 400 Output: Urine 700 / 700 Estimated Blood Loss 50 / 50 Other: # Voids 800 # Bowel Movements 1 Assessment and Plan - Assessment (1) ACS (acute coronary syndrome) Code(s): I24.9 - Acute ischemic heart disease, unspecified Status: Acute (2) Acidosis, lactic Code(s): E87.2 - Acidosis Status: Acute (3) DKA (diabetic ketoacidoses) Code(s): E13.10 - Other specified diabetes mellitus with ketoacidosis without coma Status: Acute (4) Frequent unifocal PVCs Code(s): I49.3 - Ventricular premature depolarization Status: Acute - Plan 1.) Ischemic cardiomyopathy - consult case management for transfer for heart transplant eval and palliative care, d/w Dr Sayess and nurse; he appears to assymptomatic when not tachycardic, prognosis is poor; reprtedly has medicaid now, d/w case management, they will confirm and if confirmed will re attempt transfer for heart transplant eval 2.) SBE - pod #4 s/p lead and icd extraction per Dr Cunha 10/18/17, appears to be clinically improving and stable, abs per ID, then life vest
--- NOTE | 2017-10-22 15:13 | P.PNPOD ---
Subjective Interval history: She is seen bedside. Denies any nausea, vomiting, fevers, or chills. Denies any calf pain. Has no concerns at this time. States pain is well controlled. Reports that his drain was removed by nursing this a.m. Spoke with nurse states VAC was not in patient's foot this morning. Physical Exam Vital signs: Vital Signs 10/21/17 16:00 10/21/17 17:38 10/21/17 17:45 Temperature 97.5 F L Pulse Rate 73 73 74 Respiratory Rate 15 19 Blood Pressure 146/74 H 135/73 Pulse Oximetry 99 98 10/21/17 18:00 10/21/17 18:15 10/21/17 18:19 Temperature 97.6 F Pulse Rate 72 72 Respiratory Rate 19 15 Blood Pressure 140/78 138/83 Pulse Oximetry 98 99 99 10/21/17 20:00 10/22/17 00:00 10/22/17 03:37 Temperature 98.2 F 98.1 F 97.6 F Pulse Rate 85 76 78 Respiratory Rate 18 16 16 Blood Pressure 147/67 H 130/60 108/65 Pulse Oximetry 100 97 98 10/22/17 08:00 10/22/17 12:00 Temperature 97.9 F 98.1 F Pulse Rate 84 85 Respiratory Rate 19 19 Blood Pressure 143/83 H 103/63 Pulse Oximetry 97 95 Intake & Output 10/21/17 10/22/17 10/22/17 18:59 06:59 18:59 Intake Total 500 / 500 640 / 640 100 / 100 Output Total 50 / 50 700 / 700 Balance 450 / 450 -60 / -60 100 / 100 Weight 84.5 kg Intake: IV 100 / 100 400 / 400 100 / 100 Prostaphlin Inj 2 GM In NS Inj 100 / 100 400 / 400 100 / 100 100 ML @ 200 mls/hr IV.SIG Q4H JEFE Rx#:[id number] Oral 0 / 0 240 / 240 Anesthesia Amount 400 / 400 Output: Urine 700 / 700 Estimated Blood Loss 50 / 50 Other: # Voids 800 # Bowel Movements 1 Narrative: Dressing intact to right lower extremity. No strikethrough noted. Capillary refill time present to first, third, and fifth digits. No ascending erythema noted. Medications and Allergies Active Medications: Active Medications Acetaminophen (Tylenol) 650 mg PO Q6H PRN PRN Reason: PAIN 1-10 AND/OR FEVER >101F Hydrocodone Bitart/Acetaminophen ([place] 5/325) 1 tab PO Q4H PRN PRN Reason: PAIN SCALE 1 TO 5 Last Admin: 10/22/17 09:29 Dose: 1 tab Al Hydroxide/Mg Hydroxide (Milk Of Unruly Mccoy) 30 ml PO Q12H PRN PRN Reason: Mild Constipation Albuterol (Albuterol Neb (Prn)) 2.5 mg NEB Q2HR NEB PRN PRN Reason: SHORTNESS OF BREATH/WHEEZING Last Admin: 10/13/17 19:50 Dose: 2.5 mg Artificial Tears (Genteal Severe Dry Eye Relief 0.3% Opth Gel) 1 drops EACH EYE HS [facility] Last Admin: 10/21/17 22:19 Dose: Not Given Aspirin (Ecotrin) 325 mg PO DAILY [facility] Last Admin: 10/22/17 09:25 Dose: 325 mg Atorvastatin Calcium (Lipitor) 40 mg PO DAILY [facility] Last Admin: 10/22/17 09:25 Dose: 40 mg Bisacodyl (Dulcolax Supp) 10 mg RECTAL DAILY PRN PRN Reason: SEVERE CONSITIPATION Carvedilol (Coreg) 6.25 mg PO BID [facility] Last Admin: 10/22/17 09:25 Dose: 6.25 mg Chlorhexidine Gluconate (Hibiclens 4% Topical) 1 applicatio TOPICAL ALUM MIXER [facility] Stop: 10/22/17 15:37 Collagenase (Santyl Oint) 1 applicatio TOPICAL DAILY [facility] Last Admin: 10/22/17 10:40 Dose: Not Given Sodium Chloride 500 ml/ (Cefazolin Sodium 500 mg) 0 ml IRRIGATION ALUM MIXER [facility] Stop: 10/22/17 15:39 Cyclobenzaprine HCl (Flexeril) 5 mg PO Q8H PRN PRN Reason: muscle relaxer Last Admin: 10/20/17 09:46 Dose: 5 mg Dextrose (D50w Vial) 50 ml IV.PUSH UNSCH PRN PRN Reason: PER HYPOGLYCEMIA PROTOCOL Enoxaparin Sodium (Lovenox Inj) 40 mg SQ DAILY [facility] Last Admin: 10/22/17 09:27 Dose: Not Given Furosemide (Lasix) 20 mg PO DAILY [facility] Last Admin: 10/22/17 09:25 Dose: 20 mg Glucagon (Glucagon Inj) 1 mg OTHER PRN PRN PRN Reason: for Hypoglycemia Protocol Oxacillin Sodium 2 gm/ Sodium (Chloride) 100 mls @ 200 mls/hr IV.SIG Q4H [facility] Last Admin: 10/22/17 13:30 Dose: 200 mls/hr Sodium Phosphate 30 mmol/ (Sodium Chloride) 260 mls @ 42 mls/hr IV.SIG UNSCH PRN PRN Reason: For Phosphorus < 2.5 mg/dL Insulin Aspart (Novolog Insulin Correctional Sugar Inj) 0 unit SQ ACHS [facility]; Protocol Last Admin: 10/22/17 13:32 Dose: 20 unit Insulin Detemir (Levemir Inj) 14 unit SQ DAILY [facility] Last Admin: 10/22/17 09:26 Dose: 14 unit Lactulose (Lactulose Liq) 30 ml PO DAILY PRN PRN Reason: SEVERE CONSITIPATION Last Admin: 10/08/17 17:04 Dose: 30 ml Lorazepam (Ativan) 1 mg PO Q8H PRN PRN Reason: ANXIETY Last Admin: 10/21/17 22:22 Dose: 1 mg Magnesium Oxide (Mag-Ox) 800 mg PO UNSCH PRN PRN Reason: For Magnesium 1.2 - 1.6 mg/dL Miscellaneous (Pill Splitter) 1 each OTHER UNSCH [facility] Miscellaneous Information ([facility] Nursing Information) 1 each OTHER UNSCH PRN PRN Reason: SEE LABEL COMMENTS Stop: 10/22/17 17:42 Morphine Sulfate (Morphine Inj) 2 mg IV.PUSH Q2H PRN PRN Reason: PAIN SCALE 6 TO 10 Last Admin: 10/22/17 13:31 Dose: 2 mg Nitroglycerin (Nitrostat Sl) 0.4 mg SL Q5M PRN PRN Reason: CHEST PAIN Ondansetron HCl (Zofran Inj) 4 mg IV.PUSH Q6H PRN PRN Reason: NAUSEA OR VOMITING Last Admin: 10/10/17 03:26 Dose: 4 mg Pantoprazole Sodium (Protonix) 40 mg PO DAILY [facility] Last Admin: 10/22/17 09:25 Dose: 40 mg Polyethylene Glycol (Miralax) 17 gm PO DAILY [facility] Last Admin: 10/22/17 09:27 Dose: Not Given Senna/Docusate Sodium (Zenaida-Colace) 1 tab PO BID [facility] Last Admin: 10/22/17 09:26 Dose: Not Given Sennosides (Senokot) 17.2 mg PO Q12H PRN PRN Reason: Moderate Constipation Sodium Chloride (Ns Flush) 2 ml IV.FLUSH BID [facility] Last Admin: 10/22/17 09:27 Dose: 2 ml Sodium Chloride (Ns Flush) 2 ml IV.FLUSH PRN PRN PRN Reason: FLUSH AFTER USING IV ACCESS Sodium Chloride (Ns Flush) 2 ml IV.FLUSH PRN PRN PRN Reason: FLUSH AFTER USING IV ACCESS Sodium Chloride (Ns Flush) 2 ml IV.FLUSH BID [facility] Last Admin: 10/22/17 09:26 Dose: 2 ml Sodium Chloride (Ns Flush) 2 ml IV.FLUSH BID [facility] Last Admin: 10/22/17 09:27 Dose: 2 ml Sodium Chloride (Ns Flush) 2 ml IV.FLUSH PRN PRN PRN Reason: FLUSH AFTER USING IV ACCESS Allergies Allergy/AdvReac Type Severity Reaction Status Date / Time potassium iodide Allergy Severe Swelling Verified 10/06/17 09:36 povidone-iodine Allergy Severe Swelling Verified 10/06/17 09:36 shellfish derived Allergy Severe Swelling Verified 10/06/17 09:36 sodium iodide Allergy Severe Swelling Verified 10/06/17 09:36 sodium iodide Allergy Severe Swelling Verified 10/06/17 09:36 Home Medications Medication Instructions Recorded Confirmed Type atorvastatin 40 mg PO DAILY 10/06/17 10/06/17 History carvedilol 6.25 mg PO BID 10/06/17 10/06/17 History glyburide 2.5 mg PO BID 10/06/17 10/06/17 History lisinopril 20 mg PO DAILY 10/06/17 10/06/17 History magnesium oxide 400 mg PO BID 10/06/17 10/06/17 History metformin 850 mg PO TID 10/06/17 10/06/17 History nitroglycerin [Nitrostat] 0.4 mg SUBLINGUAL Q5-15M PRN 10/06/17 10/06/17 History pravastatin 40 mg PO DAILY 10/06/17 10/06/17 History spironolactone 50 mg PO DAILY 10/06/17 10/06/17 History Results - Labs CBC & Chem 7: 10/22/17 07:00 10/22/17 07:00 Laboratory Results - last 24 hr 10/21/17 10/21/17 10/22/17 17:51 22:57 07:00 WBC 8.6 RBC 4.16 L Hgb 12.0 L Hct 35.4 L MCV 85.0 MCH 28.9 MCHC 34.0 RDW 14.8 Plt Count 357 MPV 8.4 Neut % (Auto) 66.7 Lymph % (Auto) 19.9 [place] % (Auto) 11.1 H Eos % (Auto) 1.3 Baso % (Auto) 1.0 Neut # (Auto) 5.8 Lymph # (Auto) 1.7 [place] # (Auto) 1.0 H Eos # (Auto) 0.1 Baso # (Auto) 0.1 WBC Differential . Differential Comment Auto diff final Sodium Potassium Chloride Carbon Dioxide Anion Gap BUN Creatinine Estimated GFR POC Glucose 247 H 276 H Random Glucose Calcium 10/22/17 10/22/17 10/22/17 07:00 07:52 11:47 WBC RBC Hgb Hct MCV MCH MCHC RDW Plt Count MPV Neut % (Auto) Lymph % (Auto) [place] % (Auto) Eos % (Auto) Baso % (Auto) Neut # (Auto) Lymph # (Auto) [place] # (Auto) Eos # (Auto) Baso # (Auto) WBC Differential Differential Comment Sodium 135 L Potassium 4.2 Chloride 102 Carbon Dioxide 25.9 Anion Gap 7 BUN 18 Creatinine 0.99 Estimated GFR 77 L POC Glucose 185 H 311 H Random Glucose 177 H Calcium 9.5 Microbiology 10/21/17 17:01 Tissue - Toe Gram Stain - Final 10/21/17 17:01 Tissue - Toe Wound Culture - Preliminary No growth in 24 hours - Imaging Impressions Foot X-Ray 10/21/17 00:00 CONCLUSION: Amputation of the second and third toes and distal metatarsals as above. - Procedures CARA/ s/p ICD and lead removal. Assessment and Plan - Assessment (1) Acute osteomyelitis of metatarsal bone of right foot Code(s): M86.171 - Other acute osteomyelitis, right ankle and foot Status: Acute - Plan 57 year old male with status post right second metatarsal head resection, right third ray resection date of surgery: 10/21/2017 Patient examined and evaluated Dressings remain clean dry and intact Heel weightbearing to right foot in postop shoe, recommend walker assist Will change dressing tomorrow and evaluate wound Awaiting OR cultures and pathology
[2017-10-22] MEDS: Hypromellose 0.3% Opth Gel 10 GM Bottle EACH EYE SCH (20:15)
[2017-10-23] MEDS: Morphine Sulfate Inj 2 MG/ML Vial IV.PUSH PRN ×2 (01:39→19:45)
[2017-10-23] MEDS: Carvedilol 6.25 MG Tablet PO SCH ×2 (08:42→22:20)
[2017-10-23] MEDS: Enoxaparin Inj 40 MG/0.4 ML Syringe SQ SCH (08:42)
[2017-10-23] MEDS: Furosemide 20 MG Tablet PO SCH (08:42)
[2017-10-23] MEDS: Insulin NovoLOG Aspart Correctional Sugar Inj SQ SCH ×4 (08:42→22:21)
[2017-10-23] MEDS: Insulin Detemir Inj 1,000 UNIT/10 ML Vial SQ SCH (08:43)
[2017-10-23] MEDS: Senna/Docusate Sodium 8.6/50 MG Tablet PO SCH ×2 (08:44→22:21)
[2017-10-23] MEDS: Polyethylene Glycol 3350 17 GM Packet PO SCH (08:44)
[2017-10-23] MEDS: Collagenase Oint 30 GM Tube TOPICAL SCH (08:45)
--- NOTE | 2017-10-23 09:03 | P.PN ---
Subjective Interval history: Follow-up for endocarditis/bacteremia with AICD infection, now removed. Patient reports some nausea this morning, denies any vomiting, diarrhea, or abdominal pain. Denies any fevers or chills. He states his right foot pain has improved and he is now able to wiggle his toes. Denies any other medical complaints at this time. Physical Exam Vital signs: Vital Signs 10/22/17 10:00 10/22/17 11:00 10/22/17 12:00 Temperature 98.1 F Pulse Rate 70 73 76 Respiratory Rate 19 Blood Pressure 103/63 Pulse Oximetry 95 10/22/17 16:00 10/22/17 19:00 10/22/17 20:00 Temperature 99.3 F 97.9 F Pulse Rate 85 80 83 Respiratory Rate 18 15 16 Blood Pressure 147/73 H 116/71 Pulse Oximetry 99 96 10/22/17 21:08 10/23/17 00:00 10/23/17 04:00 Temperature 97.5 F L 98.4 F Pulse Rate 89 75 Respiratory Rate 3 L 15 15 Blood Pressure 108/82 100/65 Pulse Oximetry 97 95 Intake & Output 10/22/17 10/23/17 10/23/17 18:59 06:59 18:59 Intake Total 680 / 680 200 / 200 Output Total 400 / 400 Balance 680 / 680 -200 / -200 Weight 83.2 kg Intake: IV 200 / 200 200 / 200 Prostaphlin Inj 2 GM In NS Inj 200 / 200 200 / 200 100 ML @ 200 mls/hr IV.SIG Q4H JEFE Rx#:[id number] Oral 480 / 480 Output: Urine 400 / 400 Other: # Voids 4 3 Date of Last Bowel Movement 10/17/17 # Bowel Movements 1 Narrative: GENERAL: Well-nourished, well-developed middle-aged male patient in [facility]. SKIN: Warm and dry. No rash. AICD removal surgical site at left upper chest, healing well. HEENT: Normocephalic. Atraumatic. Pupils equal and round. Mucous membranes pink and moist. CARDIOVASCULAR: Regular rate and rhythm. No murmur appreciated. RESPIRATORY: No accessory muscle use. Clear to auscultation. Breath sounds equal bilaterally. GASTROINTESTINAL: Abdomen soft, non-tender, nondistended. Normoactive bowel sounds x4. MUSCULOSKELETAL: No obvious deformities. Extremities without clubbing, cyanosis , or edema. Right foot in surgical dressing, CDI. NEUROLOGICAL: Awake and alert. No obvious cranial nerve deficits. Motor grossly within normal limits. Moving all extremities spontaneously. Normal speech. PSYCHIATRIC: Appropriate mood and affect; insight and judgment normal. Results - Labs CBC & Chem 7: 10/22/17 07:00 10/22/17 07:00 Laboratory Results - last 24 hr 10/22/17 10/22/17 10/22/17 11:47 16:31 20:09 POC Glucose 311 H 175 H 78 10/23/17 07:51 POC Glucose 185 H Microbiology 10/21/17 17:01 Tissue - Toe Gram Stain - Final 10/21/17 17:01 Tissue - Toe Wound Culture - Preliminary No growth in 24 hours - Imaging Abdomen/Pelvis CT 10/06/17 00:00 CONCLUSION: 1. No acute abnormality seen. 2. Increased density at the posterior lower lobes likely related to mild atelectasis. 3. Scattered atherosclerotic calcifications throughout the arterial system. 4. Degenerative and postsurgical change in the lumbar spine. Chest X-Ray 10/06/17 08:34 CONCLUSION: No evidence of congestive heart failure. Stable mild cardiomegaly. Otherwise negative exam. Chest X-Ray 10/09/17 09:27 CONCLUSION: 1. Cardiomegaly with new mild positive fluid balance. Foot X-Ray 10/10/17 00:00 CONCLUSION: Status post amputation of the second toe. No acute bony abnormality or destructive changes. Foot X-Ray 10/15/17 00:00 CONCLUSION: 1. Status post amputation of the second digit. 2. Mild osteoarthritic change. 3. No evidence to suggest osteomyelitis. SPECT Scan-Bone NM 10/17/17 00:00 CONCLUSION: Chest X-Ray 10/18/17 11:21 CONCLUSION: Negative for pneumothorax. Mild compensated cardiomegaly. Foot MRI 10/20/17 00:00 CONCLUSION: 1. Slight degree of nonspecific edema involving the distal portions of the second third and fifth metatarsal bones not present on the prior study unusual to represent osteomyelitis and the rest of the marrow appears intact. Findings could be further characterized with white blood cell scan based on clinical grounds. Foot X-Ray 10/21/17 00:00 CONCLUSION: Amputation of the second and third toes and distal metatarsals as above. - Procedures CARA/ s/p ICD and lead removal. Assessment and Plan - Plan Non-ST elevated myocardial infarction Systolic CHF with severely reduced EF of 25-30% -Patient did have serial cardiac enzymes performed which did show a significant elevation up to 7.05 now going down to 2.63 -Cardiology has been consulted and says he is not a candidate for cardiac catheterization. They recommended palliative care or referral for heart transplant work-up. -continue aspirin, statin and coreg -Continue oxygen as needed. -Continue monitor telemetry -s/p removal of the ICD; needs life vest. -cardiology recommending transfer for heart transplant eval; case management consulted Bacteremia -High-grade MSSA infection from PICC line. -PICC line has been removed. -Patient with MSSA high grade bacteremia 2/2 PICC line -continue Oxacillin per ID Recent osteomyelitis: s/p right 2nd toe amputation -Consulted podiatry -Foot MRI showed Slight degree of nonspecific edema involving the distal portions of the second third and fifth metatarsal bones not present on the prior study -continue antibiotic per ID -SPECT Scan-Bone NM showed Likely osteomyelitis 2nd metatarsal head -S/P Right second metatarsal head resection -Right third ray amputation with Dr Miranda 10/21 -continue abx per ID AICD associated TV endocarditis -sp AICD placement in May -CARA ( 10/14/17) with large vegetation 20x28 mm -s/p ICD and lead removal -cont oxacillin per ID Dr Tinsley ID ff -AICD can be placed on contralateral site after 2 weeks of IV abx providing, blood clx remain negative and no active infx in R foot - per ID. Sepsis, resolved -Patient did meet criteria on presentation with leukocytosis, lactic acidosis, source of infection -Patient was started on empiric antibiotics include vancomycin, Zosyn, now on oxacillin as patient with MSSA bacteremia -Patient was pancultured and found to have bacteremia as above -continue abx per ID Anxiety The pt has episodes of shaking and respiratory distress that may be s/t anxiety. - Ativan as needed. Diabetic ketoacidosis, uncontrolled diabetes, improved -Status post insulin drip -Hemoglobin A1c 8.2 -Continue sliding scale insulin and levemir; Levemir increased to 14 units subq daily on 10/20 -Continue to monitor blood glucose Metabolic/toxic encephalopathy, likely secondary to infection, diabetic ketoacidosis, resolved Acute renal failure superimposed on chronic kidney disease stage II, improved -BRIANA inhibitor has been held -Avoid nephrotoxins -resolved DVT prevention - Lovenox Sub Q daily Palliative care following, patient would like to continue aggressive care Discharge Planning: Needs life vest. Cardiology recommending possible transfer for heart transplant evaluation.
--- NOTE | 2017-10-23 13:42 | P.PNCA ---
Subjective Interval history: alert in nad Physical Exam Vital signs: Vital Signs 10/22/17 16:00 10/22/17 19:00 10/22/17 20:00 Temperature 99.3 F 97.9 F Pulse Rate 85 80 83 Respiratory Rate 18 15 16 Blood Pressure 147/73 H 116/71 Pulse Oximetry 99 96 10/22/17 21:08 10/23/17 00:00 10/23/17 04:00 Temperature 97.5 F L 98.4 F Pulse Rate 89 75 Respiratory Rate 3 L 15 15 Blood Pressure 108/82 100/65 Pulse Oximetry 97 95 10/23/17 08:00 Temperature 97.8 F Pulse Rate 73 Respiratory Rate 18 Blood Pressure 129/75 Pulse Oximetry 99 Intake & Output 10/22/17 10/23/17 10/23/17 18:59 06:59 18:59 Intake Total 680 / 680 300 / 300 100 / 100 Output Total 400 / 400 Balance 680 / 680 -100 / -100 100 / 100 Weight 83.2 kg Intake: IV 200 / 200 300 / 300 100 / 100 Prostaphlin Inj 2 GM In NS Inj 200 / 200 300 / 300 100 / 100 100 ML @ 200 mls/hr IV.SIG Q4H JEFE Rx#:[id number] Oral 480 / 480 Output: Urine 400 / 400 Other: # Voids 4 3 Date of Last Bowel Movement 10/17/17 # Bowel Movements 1 Assessment and Plan - Assessment (1) ACS (acute coronary syndrome) Code(s): I24.9 - Acute ischemic heart disease, unspecified Status: Acute (2) Acidosis, lactic Code(s): E87.2 - Acidosis Status: Acute (3) DKA (diabetic ketoacidoses) Code(s): E13.10 - Other specified diabetes mellitus with ketoacidosis without coma Status: Acute (4) Frequent unifocal PVCs Code(s): I49.3 - Ventricular premature depolarization Status: Acute - Plan 1.) Ischemic cardiomyopathy - consult case management for transfer for heart transplant eval and palliative care, d/w Dr Fernando and nurse; he appears to assymptomatic when not tachycardic, prognosis is poor; reprtedly has medicaid now, d/w case management, they will confirm and if confirmed will re attempt transfer for heart transplant eval 2.) SBE - pod #5 s/p lead and icd extraction per Dr Cunha 10/18/17, appears to be clinically improving and stable, abs per ID, then life vest
[2017-10-23] MEDS: Hypromellose 0.3% Opth Gel 10 GM Bottle EACH EYE SCH (22:25)
--- NOTE | 2017-10-23 22:43 | P.PNPOD ---
Subjective Interval history: Patient examined bedside. States he has pain in this right foot which is well controlled. Denies any N,V,F,Ch. Patient is resting comfortably/sleeping prior to evaluation. Physical Exam Vital signs: Vital Signs 10/23/17 00:00 10/23/17 04:00 10/23/17 07:00 Temperature 97.5 F L 98.4 F 97.7 F Pulse Rate 89 75 70 Respiratory Rate 15 15 18 Blood Pressure 108/82 100/65 117/71 Pulse Oximetry 97 95 99 10/23/17 08:00 10/23/17 11:00 10/23/17 12:00 Temperature 97.8 F 97.4 F L 97.7 F Pulse Rate 73 73 66 Respiratory Rate 18 18 18 Blood Pressure 129/75 124/78 117/71 Pulse Oximetry 99 99 99 10/23/17 15:00 10/23/17 16:00 10/23/17 20:00 Temperature 97.4 F L 97.4 F L 98.2 F Pulse Rate 73 67 75 Respiratory Rate 18 18 18 Blood Pressure 124/78 124/78 129/67 Pulse Oximetry 99 99 100 Intake & Output 10/23/17 10/23/17 10/24/17 06:59 18:59 06:59 Intake Total 300 / 300 1180 / 1180 Output Total 400 / 400 Balance -100 / -100 1180 / 1180 Weight 83.2 kg Intake: IV 300 / 300 300 / 300 Prostaphlin Inj 2 GM In NS Inj 300 / 300 300 / 300 100 ML @ 200 mls/hr IV.SIG Q4H [facility] Rx#:[id number] Oral 780 / 780 Oral Supplement 100 / 100 Output: Urine 400 / 400 Other: # Voids 3 Date of Last Bowel Movement 10/17/17 Narrative: Sutures intact and skin well coapted to right foot amputation site of second metatarsal and third ray. [employer] to digits 1,4,5. Sanginous drainage and strikethrough noted. Medications and Allergies Active Medications: Active Medications Acetaminophen (Tylenol) 650 mg PO Q6H PRN PRN Reason: PAIN 1-10 AND/OR FEVER >101F Hydrocodone Bitart/Acetaminophen ([place] 5/325) 1 tab PO Q4H PRN PRN Reason: PAIN SCALE 1 TO 5 Last Admin: 10/23/17 17:30 Dose: 1 tab Al Hydroxide/Mg Hydroxide (Milk Of Unruly Mccoy) 30 ml PO Q12H PRN PRN Reason: Mild Constipation Albuterol (Albuterol Neb (Prn)) 2.5 mg NEB Q2HR NEB PRN PRN Reason: SHORTNESS OF BREATH/WHEEZING Last Admin: 10/13/17 19:50 Dose: 2.5 mg Artificial Tears (Genteal Severe Dry Eye Relief 0.3% Opth Gel) 1 drops EACH EYE HS [facility] Last Admin: 10/22/17 20:15 Dose: Not Given Aspirin (Ecotrin) 325 mg PO DAILY [facility] Last Admin: 10/23/17 08:43 Dose: 325 mg Atorvastatin Calcium (Lipitor) 40 mg PO DAILY [facility] Last Admin: 10/23/17 08:42 Dose: 40 mg Bisacodyl (Dulcolax Supp) 10 mg RECTAL DAILY PRN PRN Reason: SEVERE CONSITIPATION Carvedilol (Coreg) 6.25 mg PO BID [facility] Last Admin: 10/23/17 08:42 Dose: 6.25 mg Collagenase (Santyl Oint) 1 applicatio TOPICAL DAILY [facility] Last Admin: 10/23/17 08:45 Dose: 1 applicatio Cyclobenzaprine HCl (Flexeril) 5 mg PO Q8H PRN PRN Reason: muscle relaxer Last Admin: 10/20/17 09:46 Dose: 5 mg Dextrose (D50w Vial) 50 ml IV.PUSH UNSCH PRN PRN Reason: PER HYPOGLYCEMIA PROTOCOL Enoxaparin Sodium (Lovenox Inj) 40 mg SQ DAILY [facility] Last Admin: 10/23/17 08:42 Dose: 40 mg Furosemide (Lasix) 20 mg PO DAILY [facility] Last Admin: 10/23/17 08:42 Dose: 20 mg Glucagon (Glucagon Inj) 1 mg OTHER PRN PRN PRN Reason: for Hypoglycemia Protocol Oxacillin Sodium 2 gm/ Sodium (Chloride) 100 mls @ 200 mls/hr IV.SIG Q4H [facility] Last Infusion: 10/23/17 18:58 Dose: Infused Sodium Phosphate 30 mmol/ (Sodium Chloride) 260 mls @ 42 mls/hr IV.SIG UNSCH PRN PRN Reason: For Phosphorus < 2.5 mg/dL Insulin Aspart (Novolog Insulin Correctional Sugar Inj) 0 unit SQ ACHS [facility]; Protocol Last Admin: 10/23/17 17:29 Dose: 10 unit Insulin Detemir (Levemir Inj) 14 unit SQ DAILY [facility] Last Admin: 10/23/17 08:43 Dose: 14 unit Lactulose (Lactulose Liq) 30 ml PO DAILY PRN PRN Reason: SEVERE CONSITIPATION Last Admin: 10/08/17 17:04 Dose: 30 ml Lorazepam (Ativan) 1 mg PO Q8H PRN PRN Reason: ANXIETY Last Admin: 10/21/17 22:22 Dose: 1 mg Magnesium Oxide (Mag-Ox) 800 mg PO UNSCH PRN PRN Reason: For Magnesium 1.2 - 1.6 mg/dL Miscellaneous (Pill Splitter) 1 each OTHER [facility] Morphine Sulfate (Morphine Inj) 2 mg IV.PUSH Q2H PRN PRN Reason: PAIN SCALE 6 TO 10 Last Admin: 10/23/17 19:45 Dose: 2 mg Nitroglycerin (Nitrostat Sl) 0.4 mg SL Q5M PRN PRN Reason: CHEST PAIN Ondansetron HCl (Zofran Inj) 4 mg IV.PUSH Q6H PRN PRN Reason: NAUSEA OR VOMITING Last Admin: 10/23/17 08:41 Dose: 4 mg Pantoprazole Sodium (Protonix) 40 mg PO DAILY [facility] Last Admin: 10/23/17 08:42 Dose: 40 mg Polyethylene Glycol (Miralax) 17 gm PO DAILY [facility] Last Admin: 10/23/17 08:44 Dose: 17 gm Senna/Docusate Sodium (Zenaida-Colace) 1 tab PO BID [facility] Last Admin: 10/23/17 08:44 Dose: 1 tab Sennosides (Senokot) 17.2 mg PO Q12H PRN PRN Reason: Moderate Constipation Sodium Chloride (Ns Flush) 2 ml IV.FLUSH BID [facility] Last Admin: 10/23/17 08:44 Dose: Not Given Sodium Chloride (Ns Flush) 2 ml IV.FLUSH PRN PRN PRN Reason: FLUSH AFTER USING IV ACCESS Sodium Chloride (Ns Flush) 2 ml IV.FLUSH PRN PRN PRN Reason: FLUSH AFTER USING IV ACCESS Sodium Chloride (Ns Flush) 2 ml IV.FLUSH BID [facility] Last Admin: 10/23/17 08:44 Dose: Not Given Sodium Chloride (Ns Flush) 2 ml IV.FLUSH BID [facility] Last Admin: 10/23/17 08:44 Dose: 2 ml Sodium Chloride (Ns Flush) 2 ml IV.FLUSH PRN PRN PRN Reason: FLUSH AFTER USING IV ACCESS Allergies Allergy/AdvReac Type Severity Reaction Status Date / Time potassium iodide Allergy Severe Swelling Verified 10/06/17 09:36 povidone-iodine Allergy Severe Swelling Verified 10/06/17 09:36 shellfish derived Allergy Severe Swelling Verified 10/06/17 09:36 sodium iodide Allergy Severe Swelling Verified 10/06/17 09:36 sodium iodide Allergy Severe Swelling Verified 10/06/17 09:36 Home Medications Medication Instructions Recorded Confirmed Type atorvastatin 40 mg PO DAILY 10/06/17 10/06/17 History carvedilol 6.25 mg PO BID 10/06/17 10/06/17 History glyburide 2.5 mg PO BID 10/06/17 10/06/17 History lisinopril 20 mg PO DAILY 10/06/17 10/06/17 History magnesium oxide 400 mg PO BID 10/06/17 10/06/17 History metformin 850 mg PO TID 10/06/17 10/06/17 History nitroglycerin [Nitrostat] 0.4 mg SUBLINGUAL Q5-15M PRN 10/06/17 10/06/17 History pravastatin 40 mg PO DAILY 10/06/17 10/06/17 History spironolactone 50 mg PO DAILY 10/06/17 10/06/17 History Results - Labs CBC & Chem 7: 10/22/17 07:00 10/22/17 07:00 Laboratory Results - last 24 hr 10/23/17 10/23/17 10/23/17 07:51 12:40 17:00 POC Glucose 185 H 240 H 204 H 10/23/17 19:49 POC Glucose 186 H Microbiology 10/21/17 17:01 Tissue - Toe Gram Stain - Final 10/21/17 17:01 Tissue - Toe Wound Culture - Preliminary No growth in 48 hours 10/21/17 17:01 Other Acid Fast Bacilli Smear - Final No acid fast bacilli seen 10/21/17 17:01 Other Fungal Smear - Final No fungal elements seen - Procedures CARA/ s/p ICD and lead removal. Assessment and Plan - Assessment (1) Acute osteomyelitis of metatarsal bone of right foot Code(s): M86.171 - Other acute osteomyelitis, right ankle and foot Status: Acute - Plan 57 year old male with status post right second metatarsal head resection, right third ray resection date of surgery: 10/21/2017 Patient examined and evaluated Dressing changed, applied adaptic, 4x4s, Enedelia, BRIANA Dressings remain clean dry and intact Heel weightbearing to right foot in postop shoe, recommend walker assist Ok to DC per podiatry once final cultures and OR pathology is made available and there is appropriate abx recommendation from ID Pathology report reviewed and clear margins obtained to second metatarsal as well as third ray Patient to follow up in office with Dr. Goldman within 1 week of discharge
[2017-10-24] MEDS: Morphine Sulfate Inj 2 MG/ML Vial IV.PUSH PRN (01:52)
[2017-10-24] MEDS: Enoxaparin Inj 40 MG/0.4 ML Syringe SQ SCH (08:55)
[2017-10-24] MEDS: Insulin NovoLOG Aspart Correctional Sugar Inj SQ SCH ×5 (08:57→21:28)
[2017-10-24] MEDS: Insulin Detemir Inj 1,000 UNIT/10 ML Vial SQ SCH (08:59)
[2017-10-24] MEDS: Carvedilol 6.25 MG Tablet PO SCH ×2 (09:00→20:28)
[2017-10-24] MEDS: Furosemide 20 MG Tablet PO SCH (09:00)
[2017-10-24] MEDS: Polyethylene Glycol 3350 17 GM Packet PO SCH (09:01)
[2017-10-24] MEDS: Collagenase Oint 30 GM Tube TOPICAL SCH (09:02)
[2017-10-24] MEDS: Senna/Docusate Sodium 8.6/50 MG Tablet PO SCH ×2 (09:02→20:29)
--- NOTE | 2017-10-24 13:09 | P.PNIM ---
Subjective Interval history: no complaints denies chest pain or SOB, R foot pain tolerable, afebrile Physical Exam Vital signs: Vital Signs 10/23/17 15:00 10/23/17 16:00 10/23/17 20:00 Temperature 97.4 F L 97.4 F L 98.2 F Pulse Rate 73 67 71 Respiratory Rate 18 18 18 Blood Pressure 124/78 124/78 129/67 Pulse Oximetry 99 99 100 10/24/17 00:00 10/24/17 04:00 10/24/17 08:00 Temperature 97.9 F 98.0 F 97.4 F L Pulse Rate 78 76 75 Respiratory Rate 14 16 18 Blood Pressure 119/63 99/58 L 125/68 Pulse Oximetry 99 97 97 10/24/17 11:56 Temperature 97.9 F Pulse Rate 66 Respiratory Rate 18 Blood Pressure 117/61 Pulse Oximetry 95 Intake & Output 10/23/17 10/24/17 10/24/17 18:59 06:59 18:59 Intake Total 1180 / 1180 1680 / 1680 200 / 200 Output Total 450 / 450 Balance 1180 / 1180 1230 / 1230 200 / 200 Weight 83.2 kg Intake: IV 300 / 300 200 / 200 200 / 200 Prostaphlin Inj 2 GM In NS Inj 300 / 300 200 / 200 200 / 200 100 ML @ 200 mls/hr IV.SIG Q4H [facility] Rx#:[id number] Oral 780 / 780 780 / 780 Oral Supplement 100 / 100 100 / 100 Anesthesia Amount 400 / 400 Other 200 / 200 Output: Urine 400 / 400 Estimated Blood Loss 50 / 50 Other: # Voids 3 Date of Last Bowel Movement 10/17/17 # Bowel Movements 1 Narrative: GENERAL: Not in distress SKIN: Warm and dry. No rash. AICD removal surgical site at left upper chest, healing well. CARDIOVASCULAR: Regular rate and rhythm. No murmur appreciated. RESPIRATORY: No accessory muscle use. Clear to auscultation. Breath sounds equal bilaterally. GASTROINTESTINAL: Abdomen soft, non-tender, nondistended. Normoactive bowel sounds x4. MUSCULOSKELETAL: No obvious deformities. Extremities without clubbing, cyanosis , or edema. Right foot in surgical dressing, CDI. NEUROLOGICAL: Awake and alert. No obvious cranial nerve deficits. Motor grossly within normal limits. Moving all extremities spontaneously. Normal speech. Results - Labs CBC & Chem 7: 10/22/17 07:00 10/22/17 07:00 Laboratory Results - last 24 hr 10/23/17 10/23/17 10/24/17 17:00 19:49 07:59 POC Glucose 204 H 186 H 170 H 10/24/17 11:56 POC Glucose 258 H Microbiology 10/21/17 17:01 Tissue - Toe Gram Stain - Final 10/21/17 17:01 Tissue - Toe Wound Culture - Final No growth in 72 hours (aerobically and anaerobically ) 10/21/17 17:01 Other Acid Fast Bacilli Smear - Final No acid fast bacilli seen 10/21/17 17:01 Other Fungal Smear - Final No fungal elements seen - Procedures CARA/ s/p ICD and lead removal. Assessment and Plan - Plan Non-ST elevated myocardial infarction Systolic CHF with severely reduced EF of 25-30% --Cardiology has been consulted and says he is not a candidate for cardiac catheterization. They recommended palliative care or referral for heart transplant work-up. -continue aspirin, statin and coreg -s/p removal of the ICD 10/18/17; needs life vest. -awaiting transfer for heart transplant eval; case management on the case Bacteremia -High-grade MSSA infection from PICC line. -PICC line has been removed. -Patient with MSSA high grade bacteremia 2/2 PICC line, AICD removed -continue Oxacillin per ID Recent osteomyelitis: -Foot MRI showed Slight degree of nonspecific edema involving the distal portions of the second third and fifth metatarsal bones not present on the prior study , podiatry following, S/P Right second metatarsal head resection, s/ p Right third ray amputation with Dr Miranda 10/21 -continue antibiotic per ID AICD associated TV endocarditis -sp AICD placement in May -CARA ( 10/14/17) with large vegetation 20x28 mm -s/p ICD and lead removal -cont oxacillin per ID Dr Tinsley ID ff -AICD can be placed on contralateral site after 2 weeks of IV abx providing, blood clx remain negative and no active infx in R foot - per ID. Sepsis, resolved -Patient did meet criteria on presentation with leukocytosis, lactic acidosis, source of infection -Patient was started on empiric antibiotics include vancomycin, Zosyn, now on oxacillin as patient with MSSA bacteremia -Patient was pancultured and found to have bacteremia as above -continue abx per ID Anxiety The pt has episodes of shaking and respiratory distress that may be s/t anxiety. - Ativan as needed. Diabetic ketoacidosis, uncontrolled diabetes, improved -Status post insulin drip -Hemoglobin A1c 8.2 -Continue sliding scale insulin and levemir Metabolic/toxic encephalopathy, likely secondary to infection, diabetic ketoacidosis, resolved Acute renal failure superimposed on chronic kidney disease stage II, improved -BRIANA inhibitor has been held -Avoid nephrotoxins -resolved DVT prevention - Lovenox Sub Q daily Palliative care following, patient would like to continue aggressive care Discharge Planning: Needs life vest. Cardiology requested transfer for heart transplant evaluation.
[2017-10-24] MEDS: LORazepam 1 MG Tablet PO PRN ×2 (13:54→21:30)
--- NOTE | 2017-10-24 13:58 | P.PNCA ---
Subjective Interval history: alert in nad Physical Exam Vital signs: Vital Signs 10/23/17 15:00 10/23/17 16:00 10/23/17 20:00 Temperature 97.4 F L 97.4 F L 98.2 F Pulse Rate 73 67 71 Respiratory Rate 18 18 18 Blood Pressure 124/78 124/78 129/67 Pulse Oximetry 99 99 100 10/24/17 00:00 10/24/17 04:00 10/24/17 08:00 Temperature 97.9 F 98.0 F 97.4 F L Pulse Rate 78 76 75 Respiratory Rate 14 16 18 Blood Pressure 119/63 99/58 L 125/68 Pulse Oximetry 99 97 97 10/24/17 11:56 Temperature 97.9 F Pulse Rate 66 Respiratory Rate 18 Blood Pressure 117/61 Pulse Oximetry 95 Intake & Output 10/23/17 10/24/17 10/24/17 18:59 06:59 18:59 Intake Total 1180 / 1180 1680 / 1680 200 / 200 Output Total 450 / 450 Balance 1180 / 1180 1230 / 1230 200 / 200 Weight 83.2 kg Intake: IV 300 / 300 200 / 200 200 / 200 Prostaphlin Inj 2 GM In NS Inj 300 / 300 200 / 200 200 / 200 100 ML @ 200 mls/hr IV.SIG Q4H [facility] Rx#:[id number] Oral 780 / 780 780 / 780 Oral Supplement 100 / 100 100 / 100 Anesthesia Amount 400 / 400 Other 200 / 200 Output: Urine 400 / 400 Estimated Blood Loss 50 / 50 Other: # Voids 3 Date of Last Bowel Movement 10/17/17 # Bowel Movements 1 Assessment and Plan - Assessment (1) ACS (acute coronary syndrome) Code(s): I24.9 - Acute ischemic heart disease, unspecified Status: Acute (2) Acidosis, lactic Code(s): E87.2 - Acidosis Status: Acute (3) DKA (diabetic ketoacidoses) Code(s): E13.10 - Other specified diabetes mellitus with ketoacidosis without coma Status: Acute (4) Frequent unifocal PVCs Code(s): I49.3 - Ventricular premature depolarization Status: Acute - Plan 1.) Ischemic cardiomyopathy - consult case management for transfer for heart transplant eval and palliative care, d/w Dr Fernando and nurse; he appears to assymptomatic when not tachycardic, prognosis is poor; reprtedly has medicaid now, d/w Tona today no staff available to discuss indication for transplant eval, they will call me back when staff available 2.) SBE - pod #6 s/p lead and icd extraction per Dr Cunha 10/18/17, appears to be clinically improving and stable, abs per ID, then life vest
--- NOTE | 2017-10-24 16:43 | P.PNPAL ---
Reason for Visit Reason for visit: a. To assist with evaluation and management of symptoms including: anxiety, pain b. To assist medical decision maker(s) with: better understanding of current medical conditions; weighing benefits/burdens of medical treatment options; making medical treatment decisions. Subjective Subjective/Interval History: Patient seen today to follow-up on symptom management of anxiety and pain. Patient remains somewhat anxious regarding the outcome of his heart disease. He is very happy to have received his Medicaid card which may help him getting evaluated for a heart transplant. He is receiving intermittent Ativan upon request. He is status post removal of right foot toe and is complaining of throbbing pain in his foot, worsening ambulation in spite of postoperative shoe. He describes the pain at 8/10. He is receiving morphine 3-4 times daily and has Ralph available for breakthrough pain. . Family/Friend Interactions: Briefly discussed Medicaid with and patient. Discussed with case management who is awaiting consult order from Dr. Garrett Henao for evaluation for [facility] transfer. Discussed with Dr. Henao the need for a case management consultation to evaluate patient for transfer to [facility]. . Advance Directives Health Care Surrogate Name and Number: Lisseth Drake Objective Vital Signs: Vital Signs 10/23/17 20:00 10/24/17 00:00 10/24/17 04:00 Temperature 98.2 F 97.9 F 98.0 F Pulse Rate 71 78 76 Respiratory Rate 18 14 16 Blood Pressure 129/67 119/63 99/58 L Pulse Oximetry 100 99 97 10/24/17 08:00 10/24/17 11:56 Temperature 97.4 F L 97.9 F Pulse Rate 75 66 Respiratory Rate 18 18 Blood Pressure 125/68 117/61 Pulse Oximetry 97 95 Intake & Output 10/23/17 10/24/17 10/24/17 18:59 06:59 18:59 Intake Total 1180 / 1180 1680 / 1680 200 / 200 Output Total 450 / 450 Balance 1180 / 1180 1230 / 1230 200 / 200 Weight 183 lb 6.793 oz Intake: IV 300 / 300 200 / 200 200 / 200 Prostaphlin Inj 2 GM In NS Inj 300 / 300 200 / 200 200 / 200 100 ML @ 200 mls/hr IV.SIG Q4H [facility] Rx#:[id number] Oral 780 / 780 780 / 780 Oral Supplement 100 / 100 100 / 100 Anesthesia Amount 400 / 400 Other 200 / 200 Output: Urine 400 / 400 Estimated Blood Loss 50 / 50 Other: # Voids 3 Date of Last Bowel Movement 10/17/17 # Bowel Movements 1 Physical Exam: CONSTITUTIONAL/GENERAL: This is an adequately nourished patient, in no apparent distress. TUBES/LINES/DRAINS: PIV SKIN: No jaundice, rashes, or lesions. Ecchymoses on upper extremities. No wounds seen anteriorly. Skin temperature appropriate. Not diaphoretic. HEAD: Atraumatic. Normocephalic. EYES: Pupils equal and round and reactive. Extraocular motions intact. No scleral icterus. No injection or drainage. Fundi not examined. ENT: Hearing grossly normal. Nose without bleeding or purulent drainage. Throat without visible erythema, exudates, masses, or lesions. NECK: Trachea midline. Supple, nontender. No palpable thyroid enlargement or nodularity. CARDIOVASCULAR: S1, S2, Regular rate and rhythm without gallops, or rubs. 1/6 ROMMEL. No JVD. Peripheral pulses symmetric. RESPIRATORY/CHEST: Symmetric, unlabored respirations. Clear to auscultation. Breath sounds equal bilaterally. No wheezes, rales, or rhonchi. No tenderness to palpation. GASTROINTESTINAL: Abdomen soft, non-tender, nondistended. No hepato-splenomegaly , or palpable masses. No guarding. Bowel sounds present. GENITOURINARY: Without palpable bladder distension. MUSCULOSKELETAL: Extremities without clubbing, cyanosis, or edema. Right second and 3rd toe amputation incisions healing without erythema or drainage. No joint tenderness or effusion noted. No calf tenderness. No mottling or clubbing. LYMPHATICS: No palpable cervical or supraclavicular adenopathy. NEUROLOGICAL: Awake and alert. Motor and sensory grossly within normal limits. Follows commands. Cognitively sharp. Moves all extremities. PSYCHIATRIC: Obviously anxious today. no apparent hallucinations or other psychotic thought process. . Diagnostic Tests Laboratory: Laboratory Results - last 72 hr 10/21/17 10/21/17 10/22/17 17:51 22:57 07:00 WBC 8.6 RBC 4.16 L Hgb 12.0 L Hct 35.4 L MCV 85.0 MCH 28.9 MCHC 34.0 RDW 14.8 Plt Count 357 MPV 8.4 Neut % (Auto) 66.7 Lymph % (Auto) 19.9 Emanuel % (Auto) 11.1 H Eos % (Auto) 1.3 Baso % (Auto) 1.0 Neut # (Auto) 5.8 Lymph # (Auto) 1.7 Emanuel # (Auto) 1.0 H Eos # (Auto) 0.1 Baso # (Auto) 0.1 WBC Differential . Differential Comment Auto diff final Sodium Potassium Chloride Carbon Dioxide Anion Gap BUN Creatinine Estimated GFR POC Glucose 247 H 276 H Random Glucose Calcium 10/22/17 10/22/17 10/22/17 07:00 07:52 11:47 WBC RBC Hgb Hct MCV MCH MCHC RDW Plt Count MPV Neut % (Auto) Lymph % (Auto) Emanuel % (Auto) Eos % (Auto) Baso % (Auto) Neut # (Auto) Lymph # (Auto) Emanuel # (Auto) Eos # (Auto) Baso # (Auto) WBC Differential Differential Comment Sodium 135 L Potassium 4.2 Chloride 102 Carbon Dioxide 25.9 Anion Gap 7 BUN 18 Creatinine 0.99 Estimated GFR 77 L POC Glucose 185 H 311 H Random Glucose 177 H Calcium 9.5 10/22/17 10/22/17 10/23/17 16:31 20:09 07:51 WBC RBC Hgb Hct MCV MCH MCHC RDW Plt Count MPV Neut % (Auto) Lymph % (Auto) Emanuel % (Auto) Eos % (Auto) Baso % (Auto) Neut # (Auto) Lymph # (Auto) Emanuel # (Auto) Eos # (Auto) Baso # (Auto) WBC Differential Differential Comment Sodium Potassium Chloride Carbon Dioxide Anion Gap BUN Creatinine Estimated GFR POC Glucose 175 H 78 185 H Random Glucose Calcium 10/23/17 10/23/17 10/23/17 12:40 17:00 19:49 WBC RBC Hgb Hct MCV MCH MCHC RDW Plt Count MPV Neut % (Auto) Lymph % (Auto) Emanuel % (Auto) Eos % (Auto) Baso % (Auto) Neut # (Auto) Lymph # (Auto) Emanuel # (Auto) Eos # (Auto) Baso # (Auto) WBC Differential Differential Comment Sodium Potassium Chloride Carbon Dioxide Anion Gap BUN Creatinine Estimated GFR POC Glucose 240 H 204 H 186 H Random Glucose Calcium 10/24/17 10/24/17 07:59 11:56 WBC RBC Hgb Hct MCV MCH MCHC RDW Plt Count MPV Neut % (Auto) Lymph % (Auto) Emanuel % (Auto) Eos % (Auto) Baso % (Auto) Neut # (Auto) Lymph # (Auto) Emanuel # (Auto) Eos # (Auto) Baso # (Auto) WBC Differential Differential Comment Sodium Potassium Chloride Carbon Dioxide Anion Gap BUN Creatinine Estimated GFR POC Glucose 170 H 258 H Random Glucose Calcium Result Diagrams: 10/22/17 07:00 10/22/17 07:00 Microbiology: Microbiology 10/21/17 17:01 Gram Stain - Final Tissue - Toe Wound Culture - Final No growth in 72 hours (aerobically and anaerobically) 10/21/17 17:01 Acid Fast Bacilli Smear - Final Other No acid fast bacilli seen 10/21/17 17:01 Fungal Smear - Final Other No fungal elements seen Procedures: 10/14/17 - CARA . Assessment and Plan Pertinent Non-Medical Issues: Psychosocial:He was born in [place] and moved to [place] before he was 8 years old. 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 He has never been and has no children. He has a significant other whom he has made a healthcare surrogate. He was in the service but did not serve during more time. Spiritual: Identifies with the [employer] and would accept workshop manager visits. Legal: Healthcare surrogate, identifying his girlfriend Lisseth as his primary healthcare surrogate and his sister, Michelle Ayon as his alternate. Ethical issues impacting care: None noted. . Important Contacts: Girlfriend: Lisseth Drake Sister: Michelle Ayon , . Prognosis: His prognosis is poor. He has a significantly reduced ejection fraction of 25- 30% with ischemic cardiomyopathy, moderate mitral regurgitation, moderate to severe tricuspid regurgitation, pulmonary hypertension and is not a candidate for revascularization. He has been referred to [facility] several times but declined due to no insurance coverage. This is his sixth admission to [facility] in 2018 for recurrent decline and complication. He has end- stage heart disease and would be hospice appropriate if goals were consistent. . Code Status: Full Code Plan: PLAN: Legal decision maker: He is currently capacitated for making his own decisions, however has designated his girlfriend Lisseth as his primary healthcare surrogate and his sister, Michelle, as his alternate in case he becomes incapacitated. Goals: Aggressive. CODE STATUS: FULL CODE SYMPTOMS: * Anxiety: Patient is developing a better understanding of his current clinical situation to include end-stage heart disease, endocarditis, recurrent infection , osteomyelitis and is having some anxiety secondary to the potential for complications and decline. Consultation from [facility] is being sought by case management evaluation for heart transplant, now that his Medicaid has been approved, which is also adding to his anxiety. He has Ativan 1 mg every 6 hours as needed and is using approximately 4 doses daily. * Pain: Pain in right foot status post amputation of second and third toes. He is receiving IV morphine and has Ralph available as needed. This is limiting his effectiveness with physical therapy, but was able to ambulate short distance in the room with postop shoe and walker. He is postop day 3 and has been cleared by podiatry for discharge with outpatient follow-up. . Palliative care will continue to follow the patient during hospital course as condition evolves, to assist patient/decision-maker with understanding of their medical conditions, weighing benefits/burdens of treatment options, for clarification of goals of treatment. Additionally will assist with any symptoms of palliative concern. . Attestation Attestation: To help prompt me to consider important information that might be impacting today's encounter and assessment, information from prior notes written by myself or my colleagues may have been "brought forward" into today's note. My signature on this note, however, is an attestation that I personally performed the exam, history, and/or decision-making noted today, and, unless otherwise indicated, the interactions with patient, family, and staff as well as the review of records all occurred today. I also attest that the listed assessment and stated plan reflect my best clinical judgment today based on the combination of historical information, prior notes, and today's exam/ interactions. When time spent is documented, it refers only to time spent today by the signer, or if indicated, combined time spent today by collaborating physician/nurse practitioner. .
[2017-10-24] MEDS: Hypromellose 0.3% Opth Gel 10 GM Bottle EACH EYE SCH (20:28)
[2017-10-25] MEDS: Insulin Detemir Inj 1,000 UNIT/10 ML Vial SQ SCH (09:37)
[2017-10-25] MEDS: Insulin NovoLOG Aspart Correctional Sugar Inj SQ SCH ×4 (09:37→21:35)
[2017-10-25] MEDS: Enoxaparin Inj 40 MG/0.4 ML Syringe SQ SCH (09:38)
[2017-10-25] MEDS: Furosemide 20 MG Tablet PO SCH (09:39)
[2017-10-25] MEDS: Carvedilol 6.25 MG Tablet PO SCH ×2 (09:39→21:36)
[2017-10-25] MEDS: Polyethylene Glycol 3350 17 GM Packet PO SCH (09:40)
[2017-10-25] MEDS: Collagenase Oint 30 GM Tube TOPICAL SCH (09:40)
[2017-10-25] MEDS: Senna/Docusate Sodium 8.6/50 MG Tablet PO SCH ×2 (09:40→21:36)
--- NOTE | 2017-10-25 10:34 | P.PNIM ---
Subjective Interval history: No overnight events, no fever or chills. [facility], allegedly, not a good candidate because of comorbidities. Blood glucose in the high 200s to 300s. Physical Exam Vital signs: Vital Signs 10/24/17 11:56 10/24/17 12:00 10/24/17 16:00 Temperature 97.9 F 98.1 F Pulse Rate 66 70 71 Respiratory Rate 18 18 Blood Pressure 117/61 122/67 Pulse Oximetry 95 92 L 10/24/17 19:15 10/24/17 20:00 10/24/17 23:00 Temperature 98.1 F Pulse Rate 82 64 85 Respiratory Rate 18 Blood Pressure 134/60 Pulse Oximetry 99 10/25/17 00:00 10/25/17 03:00 10/25/17 04:00 Temperature 98.3 F 97.8 F Pulse Rate 88 88 86 Respiratory Rate 18 18 Blood Pressure 110/71 119/74 Pulse Oximetry 97 96 Intake & Output 10/24/17 10/25/17 10/25/17 18:59 06:59 18:59 Intake Total 1180 / 1180 540 / 540 100 / 100 Output Total 500 / 500 Balance 1180 / 1180 40 / 40 100 / 100 Weight 84.6 kg Intake: IV 400 / 400 300 / 300 100 / 100 Prostaphlin Inj 2 GM In NS Inj 400 / 400 300 / 300 100 / 100 100 ML @ 200 mls/hr IV.SIG Q4H PENDING [facility] TO [facility] Rx#:[id number] Oral 780 / 780 240 / 240 Output: Urine 500 / 500 Other: Date of Last Bowel Movement 10/23/17 Narrative: GENERAL: Not in distress SKIN: Warm and dry. No rash. AICD removal surgical site at left upper chest, healing well. CARDIOVASCULAR: Regular rate and rhythm. No murmur appreciated. RESPIRATORY: No accessory muscle use. Clear to auscultation. Breath sounds equal bilaterally. GASTROINTESTINAL: Abdomen soft, non-tender, nondistended. Normoactive bowel sounds x4. MUSCULOSKELETAL: No obvious deformities. Extremities without clubbing, cyanosis , or edema. Right foot in surgical dressing, CDI. NEUROLOGICAL: Awake and alert. No obvious cranial nerve deficits. Motor grossly within normal limits. Moving all extremities spontaneously. Normal speech. Results - Labs CBC & Chem 7: 10/22/17 07:00 10/22/17 07:00 Laboratory Results - last 24 hr 10/24/17 10/24/17 10/24/17 11:56 17:21 20:26 POC Glucose 258 H 222 H 363 H 10/25/17 07:43 POC Glucose 216 H Microbiology 10/21/17 17:01 Tissue - Toe Gram Stain - Final 10/21/17 17:01 Tissue - Toe Wound Culture - Final No growth in 72 hours (aerobically and anaerobically ) - Procedures CARA/ s/p ICD and lead removal. Assessment and Plan - Plan This is a 57-year-old male with past medical history of coronary artery disease status post CABG, diabetes mellitus, COPD presenting with nausea, vomiting and abdominal pain. Non-ST elevated myocardial infarction Systolic CHF with severely reduced EF of 25-30% -Cardiology has been consulted and says he is not a candidate for cardiac catheterization. They recommended palliative care or referral for heart transplant work-up, [facility] has been contacted and said that patient is not a good candidate at this point because of his comorbidites. Continue aspirin, statin and coreg, s/p removal of the ICD 10/18/17 due to infection; - patient will still need a lifevest on d/c Sepsis secondary to MSSA bacteremia -High-grade MSSA infection from PICC line, status post PICC line removal. AICD removed. -Continue oxacillin per infectious disease. Recent osteomyelitis: -Foot MRI showed Slight degree of nonspecific edema involving the distal portions of the second third and fifth metatarsal bones not present on the prior study, podiatry consulted and signed off. S/P Right second metatarsal head resection, s/p Right third ray amputation with Dr Miranda 10/21, heel weightbearing to right foot in postop shoe, okay for discharge with podiatry once cultures are final and with appropriate antibiotic recommendation from infectious disease. Follow-up within 1 week of discharge. AICD associated TV endocarditis -sp AICD placement in May -CARA ( 10/14/17) with large vegetation 20x28 mm, s/p ICD and lead removal, continue oxacillin per infectious disease. -AICD can be placed on contralateral site after 2 weeks of IV abx providing, blood clx remain negative and no active infx in R foot Anxiety The pt has episodes of shaking and respiratory distress that may be s/t anxiety. - Ativan as needed. Diabetic ketoacidosis, uncontrolled diabetes, improved -Status post insulin drip -Hemoglobin A1c 8.2 -Continue sliding scale insulin, BG's in the high 200s and 300s increase Levemir to 22 units daily. Metabolic/toxic encephalopathy- likely secondary to infection, diabetic ketoacidosis, resolved Acute renal failure superimposed on chronic kidney disease stage II, improved -BRIANA inhibitor has been held, resulting DVT prevention - Lovenox Sub Q daily Palliative care following, patient would like to continue aggressive care Discharge Planning: Needs life vest. Cardiology requested transfer for heart transplant evaluation however [facility] declined due to patient being a poor candidate from comorbidities.
--- NOTE | 2017-10-25 13:08 | P.PNCA ---
Subjective Interval history: alert in nad Physical Exam Vital signs: Vital Signs 10/24/17 16:00 10/24/17 19:15 10/24/17 20:00 Temperature 98.1 F 98.1 F Pulse Rate 71 82 64 Respiratory Rate 18 18 Blood Pressure 122/67 134/60 Pulse Oximetry 92 L 99 10/24/17 23:00 10/25/17 00:00 10/25/17 03:00 Temperature 98.3 F Pulse Rate 85 88 88 Respiratory Rate 18 Blood Pressure 110/71 Pulse Oximetry 97 10/25/17 04:00 10/25/17 08:00 Temperature 97.8 F Pulse Rate 86 78 Respiratory Rate 18 Blood Pressure 119/74 Pulse Oximetry 96 Intake & Output 10/24/17 10/25/17 10/25/17 18:59 06:59 18:59 Intake Total 1180 / 1180 540 / 540 100 / 100 Output Total 500 / 500 Balance 1180 / 1180 40 / 40 100 / 100 Weight 84.6 kg Intake: IV 400 / 400 300 / 300 100 / 100 Prostaphlin Inj 2 GM In NS Inj 400 / 400 300 / 300 100 / 100 100 ML @ 200 mls/hr IV.SIG Q4H [facility] Rx#:[id number] Oral 780 / 780 240 / 240 Output: Urine 500 / 500 Other: Date of Last Bowel Movement 10/23/17 Assessment and Plan - Assessment (1) ACS (acute coronary syndrome) Code(s): I24.9 - Acute ischemic heart disease, unspecified Status: Acute (2) Acidosis, lactic Code(s): E87.2 - Acidosis Status: Acute (3) DKA (diabetic ketoacidoses) Code(s): E13.10 - Other specified diabetes mellitus with ketoacidosis without coma Status: Acute (4) Frequent unifocal PVCs Code(s): I49.3 - Ventricular premature depolarization Status: Acute - Plan 1.) Ischemic cardiomyopathy - consult case management for transfer for heart transplant eval and palliative care, d/w Dr Fernando and nurse; he appears to assymptomatic when not tachycardic, prognosis is poor; reprtedly has medicaid now, d/w [facility] today no staff available to discuss indication for transplant eval, they did not call me back but contacted cm to decline the patient, i d/w Dr Florence 2.) SBE - pod #7 s/p lead and icd extraction per Dr Cunha 10/18/17, appears to be clinically improving and stable, abs per ID, then life vest
--- NOTE | 2017-10-25 14:12 | P.DCO ---
- Physical Therapy Order: Evaluate and treat - Home Health Nursing Order: Nursing assessment with vital signs, IV medication administration - Certification I have seen patient Stanton Estrada on 10/25/17. My clinical findings support the need for the requested home health care services because: Deconditioned with increased weakness I certify that my clinical findings support that this patient is homebound because: Unsteady gait/balance
[2017-10-25] MEDS: Hypromellose 0.3% Opth Gel 10 GM Bottle EACH EYE SCH (21:35)
[2017-10-25] MEDS: LORazepam 1 MG Tablet PO PRN (21:39)
[2017-10-26] MEDS: Furosemide 20 MG Tablet PO SCH (09:18)
[2017-10-26] MEDS: Polyethylene Glycol 3350 17 GM Packet PO SCH (09:18)
[2017-10-26] MEDS: Senna/Docusate Sodium 8.6/50 MG Tablet PO SCH ×2 (09:18→21:52)
[2017-10-26] MEDS: Enoxaparin Inj 40 MG/0.4 ML Syringe SQ SCH (09:19)
[2017-10-26] MEDS: Carvedilol 6.25 MG Tablet PO SCH ×2 (09:19→21:51)
[2017-10-26] MEDS: Collagenase Oint 30 GM Tube TOPICAL SCH (09:20)
[2017-10-26] MEDS: Insulin NovoLOG Aspart Correctional Sugar Inj SQ SCH ×4 (09:21→21:52)
[2017-10-26] MEDS: Insulin Detemir Inj 1,000 UNIT/10 ML Vial SQ SCH (09:21)
--- NOTE | 2017-10-26 13:01 | P.PNCA ---
Subjective Interval history: alert in nad Physical Exam Vital signs: Vital Signs 10/25/17 15:00 10/25/17 16:00 10/25/17 20:00 Temperature 98 F 97.5 F L Pulse Rate 81 63 Respiratory Rate 18 18 16 Blood Pressure 106/56 L 124/62 Pulse Oximetry 96 97 10/26/17 00:00 10/26/17 04:00 10/26/17 08:00 Temperature 97.2 F L 97.3 F L 97.2 F L Pulse Rate 69 69 62 Respiratory Rate 18 18 18 Blood Pressure 132/71 178/66 H 124/60 Pulse Oximetry 95 98 96 Intake & Output 10/25/17 10/26/17 10/26/17 18:59 06:59 18:59 Intake Total 680 / 680 1120 / 1120 Balance 680 / 680 1120 / 1120 Weight 83.7 kg Intake: IV 200 / 200 400 / 400 Prostaphlin Inj 2 GM In NS Inj 200 / 200 400 / 400 100 ML @ 200 mls/hr IV.SIG Q4H [facility] Rx#:[id number] Oral 480 / 480 720 / 720 Other: # Voids 2 3 Date of Last Bowel Movement 10/24/17 10/24/17 # Bowel Movements 2 Assessment and Plan - Assessment (1) ACS (acute coronary syndrome) Code(s): I24.9 - Acute ischemic heart disease, unspecified Status: Acute (2) Acidosis, lactic Code(s): E87.2 - Acidosis Status: Acute (3) DKA (diabetic ketoacidoses) Code(s): E13.10 - Other specified diabetes mellitus with ketoacidosis without coma Status: Acute (4) Frequent unifocal PVCs Code(s): I49.3 - Ventricular premature depolarization Status: Acute - Plan 1.) Ischemic cardiomyopathy - consult case management for transfer for heart transplant eval and palliative care, d/w Dr Fernando and nurse; he appears to assymptomatic when not tachycardic, prognosis is poor; reprtedly has medicaid now, d/w [facility] today no staff available to discuss indication for transplant eval, they did not call me back but contacted cm to decline the patient due to multiple co morbidities, i d/w Dr Florence 2.) SBE - pod #8 s/p lead and icd extraction per Dr Cunha 7/27/18, appears to be clinically improving and stable, abs per ID, then life vest
--- NOTE | 2017-10-26 14:59 | P.PN ---
Subjective Interval history: no complains good BM- no diarrhea afebrile Physical Exam Vital signs: Vital Signs 10/25/17 15:00 10/25/17 16:00 10/25/17 20:00 Temperature 98 F 97.5 F L Pulse Rate 81 63 Respiratory Rate 18 18 16 Blood Pressure 106/56 L 124/62 Pulse Oximetry 96 97 10/26/17 00:00 10/26/17 04:00 10/26/17 08:00 Temperature 97.2 F L 97.3 F L 97.2 F L Pulse Rate 69 69 62 Respiratory Rate 18 18 18 Blood Pressure 132/71 178/66 H 124/60 Pulse Oximetry 95 98 96 10/26/17 12:00 Temperature 97.2 F L Pulse Rate 66 Respiratory Rate 18 Blood Pressure 134/63 Pulse Oximetry 99 Intake & Output 10/25/17 10/26/17 10/26/17 18:59 06:59 18:59 Intake Total 680 / 680 1120 / 1120 0 / 0 Balance 680 / 680 1120 / 1120 0 / 0 Weight 83.7 kg Intake: IV 200 / 200 400 / 400 0 / 0 Prostaphlin Inj 2 GM In NS Inj 200 / 200 400 / 400 0 / 0 100 ML @ 200 mls/hr IV.SIG Q4H JEFE Rx#:[id number] Oral 480 / 480 720 / 720 Other: # Voids 2 3 Date of Last Bowel Movement 10/24/17 10/24/17 # Bowel Movements 2 Narrative: GENERAL: Not in distress SKIN: Warm and dry. No rash. AICD removal surgical site at left upper chest, healing well., no erythema CARDIOVASCULAR: Regular rate and rhythm. No murmur appreciated. RESPIRATORY: Clear to auscultation. Breath sounds equal bilaterally. GASTROINTESTINAL: Abdomen soft, non-tender, nondistended. Normoactive bowel sounds x4. MUSCULOSKELETAL: No obvious deformities. Extremities without clubbing, cyanosis , or edema. Right foot in surgical dressing, CDI. NEUROLOGICAL: Awake and alert. No obvious cranial nerve deficits. Motor grossly within normal limits. Moving all extremities spontaneously. Normal speech. Results - Labs CBC & Chem 7: 10/22/17 07:00 10/22/17 07:00 Laboratory Results - last 24 hr 10/25/17 10/25/17 10/26/17 16:25 20:03 08:27 POC Glucose 236 H 308 H 219 H 10/26/17 12:29 POC Glucose 244 H Microbiology 10/18/17 11:02 Other Fungal Smear - Final No fungal elements seen 10/18/17 11:02 Other Fungal Culture - Preliminary No growth in 1 week 10/18/17 11:02 Other Acid Fast Bacilli Smear - Final No acid fast bacilli seen 10/18/17 11:02 Other Mycobacterial Culture - Preliminary No growth in 1 week - Procedures CARA/ s/p ICD and lead removal. Assessment and Plan - Assessment (1) Staphylococcus aureus bacteremia with sepsis Code(s): A41.01 - Sepsis due to Methicillin susceptible Staphylococcus aureus Status: Acute - Plan This is a 57-year-old male with past medical history of coronary artery disease status post CABG, diabetes mellitus, COPD presenting with nausea, vomiting and abdominal pain. Non-ST elevated myocardial infarction Systolic CHF with severely reduced EF of 25-30% -Cardiology has been consulted and says he is not a candidate for cardiac catheterization. They recommended palliative care or referral for heart transplant work-up, [facility] has been contacted and said that patient is not a good candidate at this point because of his comorbidites. Continue aspirin, statin and coreg, s/p removal of the ICD 10/18/17 due to infection; - patient will still need a lifevest on d/c Sepsis secondary to MSSA bacteremia -High-grade MSSA infection from PICC line, status post PICC line removal. AICD removed.- 10/18 -Continue oxacillin per infectious disease. Recent osteomyelitis: -Foot MRI showed Slight degree of nonspecific edema involving the distal portions of the second third and fifth metatarsal bones not present on the prior study, podiatry consulted and signed off. S/P Right second metatarsal head resection, s/p Right third ray amputation with Dr Miranda 10/21, heel weightbearing to right foot in postop shoe, okay for discharge with podiatry once cultures are final and with appropriate antibiotic recommendation from infectious disease. Follow-up within 1 week of discharge. AICD associated TV endocarditis -sp AICD placement in May -CARA ( 10/14/17) with large vegetation 20x28 mm, s/p ICD and lead removal, continue oxacillin per infectious disease. -AICD can be placed on contralateral site after 2 weeks of IV abx providing, blood clx remain negative and no active infx in R foot Anxiety The pt has episodes of shaking and respiratory distress that may be s/t anxiety. - Ativan as needed. Diabetic ketoacidosis, uncontrolled diabetes, improved -Status post insulin drip -Hemoglobin A1c 8.2 -Continue sliding scale insulin, BG's in the high 200s and 300s increase Levemir to 22 units daily. 10/26- monitor and adjust - states good hypoglycemic awareness - as OP was on Metformin 850 mg bid- DC with MENDY Metabolic/toxic encephalopathy- likely secondary to infection, diabetic ketoacidosis, resolved Acute renal failure superimposed on chronic kidney disease stage II, improved -BRIANA inhibitor has been held, resulting DVT prevention - Lovenox Sub Q daily Palliative care following, patient would like to continue aggressive care Discharge Planning: Needs life vest. Cardiology requested transfer for heart transplant evaluation however [facility] declined due to patient being a poor candidate from comorbidities.
[2017-10-26] MEDS: LORazepam 1 MG Tablet PO PRN (21:51)
[2017-10-26] MEDS: Hypromellose 0.3% Opth Gel 10 GM Bottle EACH EYE SCH (21:51)
[2017-10-27] MEDS: Furosemide 20 MG Tablet PO SCH (09:09)
[2017-10-27] MEDS: Polyethylene Glycol 3350 17 GM Packet PO SCH (09:09)
[2017-10-27] MEDS: Senna/Docusate Sodium 8.6/50 MG Tablet PO SCH ×2 (09:09→21:29)
[2017-10-27] MEDS: Carvedilol 6.25 MG Tablet PO SCH ×2 (09:10→21:28)
[2017-10-27] MEDS: Insulin NovoLOG Aspart Correctional Sugar Inj SQ SCH ×4 (09:10→21:27)
[2017-10-27] MEDS: Enoxaparin Inj 40 MG/0.4 ML Syringe SQ SCH (09:10)
[2017-10-27] MEDS: Insulin Detemir Inj 1,000 UNIT/10 ML Vial SQ SCH (09:10)
[2017-10-27] MEDS: Collagenase Oint 30 GM Tube TOPICAL SCH (10:42)
--- NOTE | 2017-10-27 11:48 | P.PNCA ---
Subjective Interval history: alert in nad Physical Exam Vital signs: Vital Signs 10/26/17 12:00 10/26/17 16:00 10/26/17 16:11 Temperature 97.2 F L 98 F Pulse Rate 56 L 67 65 Respiratory Rate 18 18 Blood Pressure 134/63 136/69 Pulse Oximetry 99 99 10/26/17 20:00 10/27/17 00:00 10/27/17 04:00 Temperature 98.7 F 98.6 F 97.9 F Pulse Rate 83 83 62 Respiratory Rate 18 18 18 Blood Pressure 109/59 L 107/61 101/56 L Pulse Oximetry 98 96 97 10/27/17 08:00 Temperature 97.2 F L Pulse Rate 76 Respiratory Rate 18 Blood Pressure 130/68 Pulse Oximetry 97 Intake & Output 10/26/17 10/27/17 10/27/17 18:59 06:59 18:59 Intake Total 1060 / 1060 1120 / 1120 Output Total 750 / 750 800 / 800 Balance 310 / 310 320 / 320 Weight 83.6 kg Intake: IV 100 / 100 400 / 400 Prostaphlin Inj 2 GM In NS Inj 100 / 100 400 / 400 100 ML @ 200 mls/hr IV.SIG Q4H JEFE Rx#:[id number] Oral 960 / 960 720 / 720 Output: Urine 750 / 750 800 / 800 Other: # Voids 3 Date of Last Bowel Movement 10/24/17 # Bowel Movements 1 Assessment and Plan - Assessment (1) ACS (acute coronary syndrome) Code(s): I24.9 - Acute ischemic heart disease, unspecified Status: Acute (2) Acidosis, lactic Code(s): E87.2 - Acidosis Status: Acute (3) DKA (diabetic ketoacidoses) Code(s): E13.10 - Other specified diabetes mellitus with ketoacidosis without coma Status: Acute (4) Frequent unifocal PVCs Code(s): I49.3 - Ventricular premature depolarization Status: Acute - Plan 1.) Ischemic cardiomyopathy - consult case management for transfer for heart transplant eval and palliative care, d/w Dr Fernando and nurse; he appears to assymptomatic when not tachycardic, prognosis is poor; reprtedly has medicaid now, d/w [facility] today no staff available to discuss indication for transplant eval, they did not call me back but contacted cm to decline the patient due to multiple co morbidities, i d/w Dr Florence 2.) SBE - pod #9 s/p lead and icd extraction per Dr Cunha 10/18/17, appears to be clinically improving and stable, abs per ID, then life vest
--- NOTE | 2017-10-27 13:05 | P.PN ---
Subjective Interval history: no complains of chest discomfort or shortness of breath Physical Exam Vital signs: Vital Signs 10/26/17 16:00 10/26/17 16:11 10/26/17 20:00 Temperature 98 F 98.7 F Pulse Rate 67 65 83 Respiratory Rate 18 18 Blood Pressure 136/69 109/59 L Pulse Oximetry 99 98 10/27/17 00:00 10/27/17 04:00 10/27/17 08:00 Temperature 98.6 F 97.9 F 97.2 F L Pulse Rate 83 62 76 Respiratory Rate 18 18 18 Blood Pressure 107/61 101/56 L 130/68 Pulse Oximetry 96 97 97 10/27/17 12:00 Temperature 97.4 F L Pulse Rate 74 Respiratory Rate 18 Blood Pressure 134/67 Pulse Oximetry 99 Intake & Output 10/26/17 10/27/17 10/27/17 18:59 06:59 18:59 Intake Total 1060 / 1060 1120 / 1120 Output Total 750 / 750 800 / 800 Balance 310 / 310 320 / 320 Weight 83.6 kg Intake: IV 100 / 100 400 / 400 Prostaphlin Inj 2 GM In NS Inj 100 / 100 400 / 400 100 ML @ 200 mls/hr IV.SIG Q4H JEFE Rx#:[id number] Oral 960 / 960 720 / 720 Output: Urine 750 / 750 800 / 800 Other: # Voids 3 Date of Last Bowel Movement 10/24/17 # Bowel Movements 1 Narrative: GENERAL: Not in distress SKIN: Warm and dry. No rash. AICD removal surgical site at left upper chest, healing well., no erythema CARDIOVASCULAR: Regular rate and rhythm. No murmur appreciated. RESPIRATORY: Clear to auscultation. Breath sounds equal bilaterally. GASTROINTESTINAL: Abdomen soft, non-tender, nondistended. Normoactive bowel sounds x4. MUSCULOSKELETAL: No obvious deformities. Extremities without clubbing, cyanosis , or edema. Right foot , s/p amputation of toes- dressing intact NEUROLOGICAL: Awake and alert. No obvious cranial nerve deficits. Motor grossly within normal limits. Moving all extremities spontaneously. Normal speech. Results - Labs CBC & Chem 7: 10/22/17 07:00 10/22/17 07:00 Laboratory Results - last 24 hr 10/26/17 10/26/17 10/27/17 17:24 20:04 08:22 POC Glucose 255 H 245 H 193 H 10/27/17 11:38 POC Glucose 270 H - Procedures CARA/ s/p ICD and lead removal. Assessment and Plan - Assessment (1) Staphylococcus aureus bacteremia with sepsis Code(s): A41.01 - Sepsis due to Methicillin susceptible Staphylococcus aureus Status: Acute - Plan This is a 57-year-old male with past medical history of coronary artery disease status post CABG, diabetes mellitus, COPD presenting with nausea, vomiting and abdominal pain. Non-ST elevated myocardial infarction Systolic CHF with severely reduced EF of 25-30% -Cardiology has been consulted and says he is not a candidate for cardiac catheterization. They recommended palliative care or referral for heart transplant work-up, [facility] has been contacted and said that patient is not a good candidate at this point because of his comorbidites. Continue aspirin, statin and coreg, s/p removal of the ICD 10/18/17 due to infection; - patient will still need a lifevest on d/c Sepsis secondary to MSSA bacteremia -High-grade MSSA infection from PICC line, status post PICC line removal. AICD removed.- 10/18 -Continue oxacillin per infectious disease. Recent osteomyelitis: -Foot MRI showed Slight degree of nonspecific edema involving the distal portions of the second third and fifth metatarsal bones not present on the prior study, podiatry consulted and signed off. S/P Right second metatarsal head resection, s/p Right third ray amputation with Dr Miranda 10/21, heel weightbearing to right foot in postop shoe, okay for discharge with podiatry with appropriate antibiotic recommendation from infectious disease. Follow-up within 1 week of discharge. AICD associated TV endocarditis -sp AICD placement in May -CARA ( 10/14/17) with large vegetation 20x28 mm, s/p ICD and lead removal, continue oxacillin per infectious disease. -AICD can be placed on contralateral site after 2 weeks of IV abx providing, blood clx remain negative and no active infx in R foot Anxiety The pt has episodes of shaking and respiratory distress that may be s/t anxiety. - Ativan as needed. Diabetic ketoacidosis, uncontrolled diabetes, improved -Status post insulin drip -Hemoglobin A1c 8.2 -Continue sliding scale insulin, BG's in the high 200s and 300s . Dc Levemer - change to 70/30 bid - states good hypoglycemic awareness - as OP was on Metformin 850 mg bid- DC with [facility]ENDY Metabolic/toxic encephalopathy- likely secondary to infection, diabetic ketoacidosis, resolved Acute renal failure superimposed on chronic kidney disease stage II, improved -BRIANA inhibitor has been held, resulting DVT prevention - Lovenox Sub Q daily Palliative care following, patient would like to continue aggressive care Discharge Planning: Needs life vest. Cardiology requested transfer for heart transplant evaluation however [facility] declined due to patient being a poor candidate from comorbidities.
[2017-10-27] MEDS ORDERED: Insulin Detemir Inj 1,000 UNIT/10 ML Vial SQ SCH (21:00)
[2017-10-27] MEDS: Hypromellose 0.3% Opth Gel 10 GM Bottle EACH EYE SCH (21:24)
[2017-10-28] MEDS: Insulin NovoLOG Aspart Correctional Sugar Inj SQ SCH ×4 (08:14→21:32)
[2017-10-28] MEDS: Senna/Docusate Sodium 8.6/50 MG Tablet PO SCH ×2 (08:15→21:32)
[2017-10-28] MEDS: Carvedilol 6.25 MG Tablet PO SCH ×2 (08:15→21:31)
[2017-10-28] MEDS: Enoxaparin Inj 40 MG/0.4 ML Syringe SQ SCH (08:16)
[2017-10-28] MEDS: Polyethylene Glycol 3350 17 GM Packet PO SCH (08:16)
[2017-10-28] MEDS: Furosemide 20 MG Tablet PO SCH (08:19)
[2017-10-28] MEDS: Collagenase Oint 30 GM Tube TOPICAL SCH (08:23)
[2017-10-28] MEDS ORDERED: Insulin Detemir Inj 1,000 UNIT/10 ML Vial SQ SCH (09:00)
--- NOTE | 2017-10-28 10:18 | P.PN ---
Subjective Interval history: no complains having a good BM Physical Exam Vital signs: Vital Signs 10/27/17 12:00 10/27/17 16:00 10/27/17 20:00 Temperature 97.4 F L 97.9 F 97.9 F Pulse Rate 72 62 69 Respiratory Rate 18 18 18 Blood Pressure 134/67 111/58 L 123/62 Pulse Oximetry 99 98 98 10/28/17 00:00 10/28/17 04:00 10/28/17 08:00 Temperature 97.8 F 97.5 F L 97.9 F Pulse Rate 59 L 63 72 Respiratory Rate 18 18 20 Blood Pressure 126/62 104/56 L 123/58 L Pulse Oximetry 98 96 98 Intake & Output 10/27/17 10/28/17 10/28/17 18:59 06:59 18:59 Intake Total 680 / 680 820 / 820 100 / 100 Output Total 900 / 900 600 / 600 Balance -220 / -220 220 / 220 100 / 100 Weight 83.3 kg Intake: IV 200 / 200 400 / 400 100 / 100 Prostaphlin Inj 2 GM In NS Inj 200 / 200 400 / 400 100 / 100 100 ML @ 200 mls/hr IV.SIG Q4H JEFE Rx#:[id number] Oral 480 / 480 420 / 420 Output: Urine 900 / 900 600 / 600 Other: # Voids 2 Date of Last Bowel Movement 10/27/17 10/27/17 10/27/17 Narrative: GENERAL: Not in distress SKIN: Warm and dry. No rash. AICD removal surgical site at left upper chest, healing well., no erythema CARDIOVASCULAR: Regular rate and rhythm. No murmur appreciated. RESPIRATORY: Clear to auscultation. Breath sounds equal bilaterally. GASTROINTESTINAL: Abdomen soft, non-tender, nondistended. Normoactive bowel sounds x4. MUSCULOSKELETAL: No obvious deformities. Extremities without clubbing, cyanosis , or edema. Right foot , s/p amputation of toes- dressing intact NEUROLOGICAL: Awake and alert. No obvious cranial nerve deficits. Motor grossly within normal limits. Moving all extremities spontaneously. Normal speech. Results - Labs CBC & Chem 7: 10/29/17 06:26 10/22/17 07:00 Laboratory Results - last 24 hr 10/27/17 10/27/17 10/27/17 11:38 17:24 21:27 POC Glucose 270 H 308 H 175 H 08/06/18 07:40 POC Glucose 144 H - Procedures CARA/ s/p ICD and lead removal. Assessment and Plan - Assessment (1) Staphylococcus aureus bacteremia with sepsis Code(s): A41.01 - Sepsis due to Methicillin susceptible Staphylococcus aureus Status: Acute - Plan This is a 57-year-old male with past medical history of coronary artery disease status post CABG, diabetes mellitus, COPD presenting with nausea, vomiting and abdominal pain. Non-ST elevated myocardial infarction Systolic CHF with severely reduced EF of 25-30% -Cardiology has been consulted and says he is not a candidate for cardiac catheterization. They recommended palliative care or referral for heart transplant work-up, [facility] has been contacted and said that patient is not a good candidate at this point because of his comorbidites. Continue aspirin, statin and coreg, s/p removal of the ICD 10/18/17 due to infection; - patient will still need a lifevest on d/c Sepsis secondary to MSSA bacteremia -High-grade MSSA infection from PICC line, status post PICC line removal. AICD removed.- 10/18 -Continue oxacillin per infectious disease. Recent osteomyelitis: -Foot MRI showed Slight degree of nonspecific edema involving the distal portions of the second third and fifth metatarsal bones not present on the prior study, podiatry consulted and signed off. S/P Right second metatarsal head resection, s/p Right third ray amputation with Dr Miranda 10/21, heel weightbearing to right foot in postop shoe, okay for discharge with podiatry with appropriate antibiotic recommendation from infectious disease. Follow-up within 1 week of discharge. dressing change daily AICD associated TV endocarditis -sp AICD placement in May -CARA ( 10/14/17) with large vegetation 20x28 mm, s/p ICD and lead removal, continue oxacillin per infectious disease. -AICD can be placed on contralateral site after 2 weeks of IV abx providing, blood clx remain negative and no active infx in R foot Anxiety The pt has episodes of shaking and respiratory distress that may be s/t anxiety. - Ativan as needed. Diabetic ketoacidosis, uncontrolled diabetes, improved -Status post insulin drip -Hemoglobin A1c 8.2 -Continue sliding scale insulin, BG's in the high 200s and 300s . Dc Levemer - change to 70/30 bid- increased to 18 units bid today 10/28 - states good hypoglycemic awareness - as OP was on Metformin 850 mg bid- - restart today and monitor BMP Metabolic/toxic encephalopathy- likely secondary to infection, diabetic ketoacidosis, resolved Acute renal failure superimposed on chronic kidney disease stage II,Resolved -BRIANA inhibitor has been held- eventually will benefit from BRIANA - Metformin restarted today - ff BMP DVT prevention - Lovenox Sub Q daily Palliative care following, patient would like to continue aggressive care d/w patient and - needs to set up with OP PCP and sales associate- that takes Medicaid- she will start looking around Discharge Planning: Needs life vest. Cardiology requested transfer for heart transplant evaluation however [facility] declined due to patient being a poor candidate from comorbidities.
--- NOTE | 2017-10-28 13:54 | P.PNPAL ---
Reason for Visit Reason for visit: a. To assist with evaluation and management of symptoms including: anxiety, pain b. To assist medical decision maker(s) with: better understanding of current medical conditions; weighing benefits/burdens of medical treatment options; making medical treatment decisions. Subjective Subjective/Interval History: Patient seen today to follow-up on symptom management of anxiety and pain. Has remained stable. No new labs. Cardio has attempted to facilitate transfer/ evaluation by [facility] for heart transplant, apparently patient was declined. Recommends continue antibiotics per ID, and proceed with LifeVest. Case management working with [employer] to assist with application and possible procurement for LifeVest upon discharge. Apparently today case management again in communication with regarding the possibility of reevaluation for possible transfer. Patient seen in room with significant other at bedside. He is alert and oriented seated in chair at bedside with right foot elevated. He appears to have reasonable understanding of conditions and waiting process now. He asks if his heart will ever be better enough to not need the life vest or surgery, advised that underlying heart conditions remain even if infection can clear that the underlying conditions that caused him to need implanted device in the first place persist. Review case management assisting facilitate light. He wonders if he would have to wear the LifeVest "forever ", explore that not sure how custodial generally patients wear this device however if the condition did not reverse or improve then is possible if you are not a surgical candidate that he could need a LifeVest longer-term. He denies dyspnea. He denies chest pain. Denies edema. Denies any GI complaints currently says air peptide is fair to good. However he does report episode of nausea earlier this morning he is not sure if it was from taking medications on an empty stomach, he did not take prn for it self-limited. Endorses continues to have pain to the right foot from toe amputation. Has been using [place] about 3 times per day has not used yet today. Endorses that it is pretty effective at controlling his pain it takes about an hour but then he feels much more comfortable. No anxiety today. Last dose of Ativan required 10/26. Discussed with medical attending, primary nurse, who are also present for part of conversation. Discussed with case management. . Advance Directives Health Care Surrogate Name and Number: Lisseth Drake Objective Vital Signs: Vital Signs 10/27/17 16:00 10/27/17 20:00 10/28/17 00:00 Temperature 97.9 F 97.9 F 97.8 F Pulse Rate 62 69 59 L Respiratory Rate 18 18 18 Blood Pressure 111/58 L 123/62 126/62 Pulse Oximetry 98 98 98 10/28/17 04:00 10/28/17 08:00 10/28/17 12:00 Temperature 97.5 F L 97.9 F Pulse Rate 63 72 64 Respiratory Rate 18 20 Blood Pressure 104/56 L 123/58 L Pulse Oximetry 96 98 Intake & Output 10/27/17 10/28/17 10/28/17 18:59 06:59 18:59 Intake Total 680 / 680 820 / 820 100 / 100 Output Total 900 / 900 600 / 600 Balance -220 / -220 220 / 220 100 / 100 Weight 83.3 kg Intake: IV 200 / 200 400 / 400 100 / 100 Prostaphlin Inj 2 GM In NS Inj 200 / 200 400 / 400 100 / 100 100 ML @ 200 mls/hr IV.SIG Q4H JEFE Rx#:[id number] Oral 480 / 480 420 / 420 Output: Urine 900 / 900 600 / 600 Other: # Voids 2 Date of Last Bowel Movement 10/27/17 10/27/17 10/27/17 Physical Exam: CONSTITUTIONAL/GENERAL: This is an adequately nourished patient, in no apparent distress, alert, pleasant TUBES/LINES/DRAINS: PIV SKIN: No jaundice, rashes, or lesions. + Dressing to right foot, under walking boot. Dressing appears clean and dry. CARDIOVASCULAR: Regular rate and rhythm . No JVD. Peripheral pulses symmetric-- unable to palpate right pedal secondary to large dressing. RESPIRATORY/CHEST: Symmetric, unlabored respirations. Clear to auscultation. On room air. Breath sounds equal bilaterally. GASTROINTESTINAL: Abdomen soft, non-tender, nondistended. No palpable masses. No guarding. Bowel sounds present. MUSCULOSKELETAL: Extremities without clubbing, cyanosis, or edema. Right second and 3rd toe amputation i dressing clean and dry. NEUROLOGICAL: Awake and alert, oriented and appropriate. Reasonable insight. Motor and sensory grossly within normal limits. Follows commands. Cognitively sharp. Moves all extremities. PSYCHIATRIC: Obviously anxious today. no apparent hallucinations or other psychotic thought process. . Diagnostic Tests Laboratory: Laboratory Results - last 72 hr 10/25/17 10/25/17 10/26/17 16:25 20:03 08:27 POC Glucose 236 H 308 H 219 H 10/26/17 10/26/17 10/26/17 12:29 17:24 20:04 POC Glucose 244 H 255 H 245 H 10/27/17 10/27/17 10/27/17 08:22 11:38 17:24 POC Glucose 193 H 270 H 308 H 10/27/17 10/28/17 10/28/17 21:27 07:40 11:42 POC Glucose 175 H 144 H 227 H Result Diagrams: 10/22/17 07:00 10/22/17 07:00 Microbiology: Microbiology 10/18/17 11:02 Fungal Smear - Final Other No fungal elements seen Fungal Culture - Preliminary No growth in 1 week 10/18/17 11:02 Acid Fast Bacilli Smear - Final Other No acid fast bacilli seen Mycobacterial Culture - Preliminary No growth in 1 week Procedures: 10/14/17 - CARA . Assessment and Plan Pertinent Non-Medical Issues: Psychosocial:He was born in [place] and moved to [place] before he was 8 years old. 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 He has never been and has no children. He has a significant other whom he has made a healthcare surrogate. He was in the service but did not serve during more time. Spiritual: Identifies with the Shinto david and would accept leather tanner visits. Legal: Healthcare surrogate, identifying his girlfriend Lisseth as his primary healthcare surrogate and his sister, Michelle Ayon as his alternate. Ethical issues impacting care: None noted. . Important Contacts: Girlfriend: Lisseth Drake Sister: Michelle Ayon , . Prognosis: His prognosis is poor. He has a significantly reduced ejection fraction of 25- 30% with ischemic cardiomyopathy, moderate mitral regurgitation, moderate to severe tricuspid regurgitation, pulmonary hypertension and is not a candidate for revascularization. He has been referred to [facility] several times but declined due to no insurance coverage. This is his sixth admission to [facility] in 2018 for recurrent decline and complication. He has end- stage heart disease and would be hospice appropriate if goals were consistent. . Code Status: Full Code Plan: PLAN: Legal decision maker: He is currently capacitated for making his own decisions, however has designated his girlfriend Lisseth as his primary healthcare surrogate and his sister, Michelle, as his alternate in case he becomes incapacitated. Goals: Aggressive. Patient wishes to continue to pursue heart transplant if this becomes a possibility, alternatively would proceed with LifeVest and continue to try to improve his health. CODE STATUS: FULL CODE SYMPTOMS: * Anxiety: Patient is developing a better understanding of his current clinical situation to include end-stage heart disease, endocarditis, recurrent infection , osteomyelitis and is having some anxiety secondary to the potential for complications and decline. Consultation from [facility] is being sought by case management evaluation for heart transplant, patient initially declined however case management again and discussions regarding this possibility. He has Ativan 1 mg every 6 hours as needed and is using approximately 4 doses daily, though seems to be improving overall last Ativan 10/26/17. * Pain: Pain in right foot status post amputation of second and third toes. has Mc[place]port available as needed. This is limiting his effectiveness with physical therapy, but is able to ambulate short distances in the room with postop shoe and walker. has been cleared by podiatry for discharge with outpatient follow-up. Has been using [place] about 3 times per day, patient indicates is effective. Has not used a dose yet today, last dose yesterday evening. * Nausea: Self-limited episode of nausea reported this morning. Patient is not sure if it is from taking his morning medications, or possibly the pain medication, though this is unlikely as he has been on this regimen for some time now. He does have Zofran available, this mornings episode did not require a dose. Will continue to evaluate. . Palliative care will continue to follow the patient during hospital course as condition evolves, to assist patient/decision-maker with understanding of their medical conditions, weighing benefits/burdens of treatment options, for clarification of goals of treatment. Additionally will assist with any symptoms of palliative concern. . Attestation Attestation: To help prompt me to consider important information that might be impacting today's encounter and assessment, information from prior notes written by myself or my colleagues may have been "brought forward" into today's note. My signature on this note, however, is an attestation that I personally performed the exam, history, and/or decision-making noted today, and, unless otherwise indicated, the interactions with patient, family, and staff as well as the review of records all occurred today. I also attest that the listed assessment and stated plan reflect my best clinical judgment today based on the combination of historical information, prior notes, and today's exam/ interactions. When time spent is documented, it refers only to time spent today by the signer, or if indicated, combined time spent today by collaborating physician/nurse practitioner.
--- NOTE | 2017-10-28 14:37 | P.PNCA ---
Subjective Interval history: alert in nad Physical Exam Vital signs: Vital Signs 10/27/17 16:00 10/27/17 20:00 10/28/17 00:00 Temperature 97.9 F 97.9 F 97.8 F Pulse Rate 62 69 59 L Respiratory Rate 18 18 18 Blood Pressure 111/58 L 123/62 126/62 Pulse Oximetry 98 98 98 10/28/17 04:00 10/28/17 08:00 10/28/17 12:00 Temperature 97.5 F L 97.9 F Pulse Rate 63 72 64 Respiratory Rate 18 20 Blood Pressure 104/56 L 123/58 L Pulse Oximetry 96 98 Intake & Output 10/27/17 10/28/17 10/28/17 18:59 06:59 18:59 Intake Total 680 / 680 820 / 820 100 / 100 Output Total 900 / 900 600 / 600 Balance -220 / -220 220 / 220 100 / 100 Weight 83.3 kg Intake: IV 200 / 200 400 / 400 100 / 100 Prostaphlin Inj 2 GM In NS Inj 200 / 200 400 / 400 100 / 100 100 ML @ 200 mls/hr IV.SIG Q4H JEFE Rx#:[id number] Oral 480 / 480 420 / 420 Output: Urine 900 / 900 600 / 600 Other: # Voids 2 Date of Last Bowel Movement 10/27/17 10/27/17 10/27/17 Assessment and Plan - Assessment (1) ACS (acute coronary syndrome) Code(s): I24.9 - Acute ischemic heart disease, unspecified Status: Acute (2) Acidosis, lactic Code(s): E87.2 - Acidosis Status: Acute (3) DKA (diabetic ketoacidoses) Code(s): E13.10 - Other specified diabetes mellitus with ketoacidosis without coma Status: Acute (4) Frequent unifocal PVCs Code(s): I49.3 - Ventricular premature depolarization Status: Acute - Plan 1.) Ischemic cardiomyopathy - consult case management for transfer for heart transplant eval and palliative care, d/w Dr Fernando and nurse; he appears to assymptomatic when not tachycardic, prognosis is poor; reprtedly has medicaid now, d/w [facility] today no staff available to discuss indication for transplant eval, they did not call me back but contacted cm to decline the patient due to multiple co morbidities, i d/w Dr Florence 2.) SBE - pod #10 s/p lead and icd extraction per Dr Cunha 10/18/17, appears to be clinically improving and stable, abs per ID, then life vest
[2017-10-28] MEDS: Hypromellose 0.3% Opth Gel 10 GM Bottle EACH EYE SCH (21:32)
[2017-10-29 07:11] LABS: Baso # (Auto) 0.1 th/mm3 (0.0-0.2); Baso % (Auto) 1.5 % (0.0-2.0); Eos # (Auto) 0.1 th/mm3 (0.0-0.4); Hematocrit 31.7 % (39.0-51.0); Hemoglobin 10.7 gm/dL (13.0-17.0); Lymph # (Auto) 1.6 th/mm3 (1.0-4.8); Lymph % (Auto) 33.4 % (9.0-44.0); Mean Corpuscular HGB Conc 33.8 % (32.0-36.0); Mean Corpuscular Hemoglobin 28.1 pg (27.0-34.0); Mean Corpuscular Volume 83.2 fL (80.0-100.0); Mean Platelet Volume 7.7 fL (7.0-11.0); Mono # (Auto) 0.5 th/mm3 (0.0-0.9); Mono % (Auto) 10.4 % (0.0-8.0); Neut # (Auto) 2.5 th/mm3 (1.8-7.7); Neut % (Auto) 51.7 % (16.0-70.0); Platelet Count 266 th/mm3 (150-450); Red Blood Count 3.81 mil/mm3 (4.50-5.90); Red Cell Distribution Width 13.9 % (11.6-17.2); White Blood Count 4.8 th/mm3 (4.0-11.0)
[2017-10-29] MEDS: Insulin NovoLOG Aspart Correctional Sugar Inj SQ SCH ×4 (08:00→21:03)
--- NOTE | 2017-10-29 09:05 | P.PN ---
Subjective Interval history: no complains no diarrhea- states Bowel movement- formed no nausea or vomiting Physical Exam Vital signs: Vital Signs 10/28/17 12:00 10/28/17 15:43 10/28/17 16:00 Temperature 97.6 F 98.1 F Pulse Rate 65 60 65 Respiratory Rate 20 20 Blood Pressure 139/74 118/66 Pulse Oximetry 98 100 10/28/17 20:00 10/29/17 00:00 10/29/17 04:00 Temperature 97.8 F 98.2 F Pulse Rate 68 77 86 Respiratory Rate 18 18 Blood Pressure 135/64 142/69 H Pulse Oximetry 97 98 10/29/17 06:00 Temperature 98 F Pulse Rate 72 Respiratory Rate 18 Blood Pressure 123/64 Pulse Oximetry 96 Intake & Output 10/28/17 10/29/17 10/29/17 18:59 06:59 18:59 Intake Total 1260 / 1260 540 / 540 Output Total 600 / 600 Balance 660 / 660 540 / 540 Weight 83.6 kg Intake: IV 300 / 300 300 / 300 Prostaphlin Inj 2 GM In NS Inj 300 / 300 300 / 300 100 ML @ 200 mls/hr IV.SIG Q4H JEFE Rx#:[id number] Oral 960 / 960 240 / 240 Output: Urine 600 / 600 Other: # Voids 1 Date of Last Bowel Movement 10/27/17 # Bowel Movements 0 Narrative: GENERAL: Not in distress SKIN: Warm and dry. No rash. AICD removal surgical site at left upper chest, healing well., no erythema CARDIOVASCULAR: Regular rate and rhythm. No murmur appreciated. RESPIRATORY: Clear to auscultation. Breath sounds equal bilaterally. GASTROINTESTINAL: Abdomen soft, non-tender, nondistended. Normoactive bowel sounds x4. MUSCULOSKELETAL: No obvious deformities. Extremities without clubbing, cyanosis , or edema. Right foot , s/p amputation of toes- sutures intact, no erythema, minimal blood on gauze moves foot well NEUROLOGICAL: Awake and alert. No obvious cranial nerve deficits. Motor grossly within normal limits. Moving all extremities spontaneously. Normal speech. Results - Labs CBC & Chem 7: 10/29/17 06:26 10/22/17 07:00 Laboratory Results - last 24 hr 10/28/17 10/28/17 10/28/17 11:42 16:44 20:05 WBC RBC Hgb Hct MCV MCH MCHC RDW Plt Count MPV Neut % (Auto) Lymph % (Auto) [place] % (Auto) Eos % (Auto) Baso % (Auto) Neut # (Auto) Lymph # (Auto) [place] # (Auto) Eos # (Auto) Baso # (Auto) WBC Differential Differential Comment POC Glucose 227 H 199 H 208 H 10/29/17 10/29/17 06:26 07:59 WBC 4.8 RBC 3.81 L Hgb 10.7 L Hct 31.7 L MCV 83.2 MCH 28.1 MCHC 33.8 RDW 13.9 Plt Count 266 MPV 7.7 Neut % (Auto) 51.7 Lymph % (Auto) 33.4 [place] % (Auto) 10.4 H Eos % (Auto) 3.0 Baso % (Auto) 1.5 Neut # (Auto) 2.5 Lymph # (Auto) 1.6 [place] # (Auto) 0.5 Eos # (Auto) 0.1 Baso # (Auto) 0.1 WBC Differential . Differential Comment Auto diff final POC Glucose 257 H Microbiology 10/21/17 17:01 Other Fungal Smear - Final No fungal elements seen 10/21/17 17:01 Other Fungal Culture - Preliminary No growth in 1 week 10/21/17 17:01 Other Acid Fast Bacilli Smear - Final No acid fast bacilli seen 10/21/17 17:01 Other Mycobacterial Culture - Preliminary No growth in 1 week - Procedures CARA/ s/p ICD and lead removal. Assessment and Plan - Assessment (1) Staphylococcus aureus bacteremia with sepsis Code(s): A41.01 - Sepsis due to Methicillin susceptible Staphylococcus aureus Status: Acute - Plan This is a 57-year-old male with past medical history of coronary artery disease status post CABG, diabetes mellitus, COPD presenting with nausea, vomiting and abdominal pain. Non-ST elevated myocardial infarction Systolic CHF with severely reduced EF of 25-30% - clinically not in failure -Cardiology has been consulted and says he is not a candidate for cardiac catheterization. They recommended palliative care or referral for heart transplant work-up, [facility] has been contacted and said that patient is not a good candidate at this point because of his comorbidites. Continue aspirin, statin and coreg, s/p removal of the ICD 10/18/17 due to infection; - patient will still need a lifevest on d/c - consider restarting BRIANA eventually Sepsis secondary to MSSA bacteremia -High-grade MSSA infection from PICC line, status post PICC line removal. AICD removed.- 10/18 -Continue oxacillin per infectious disease. Recent osteomyelitis: -Foot MRI showed Slight degree of nonspecific edema involving the distal portions of the second third and fifth metatarsal bones not present on the prior study, podiatry consulted and signed off. S/P Right second metatarsal head resection, s/p Right third ray amputation with Dr Miranda 10/21, heel weightbearing to right foot in postop shoe, okay for discharge with podiatry with appropriate antibiotic recommendation from infectious disease. Follow-up within 1 week of discharge. dressing change daily on IV Oxacilline AICD associated TV endocarditis -sp AICD placement in May -CARA ( 10/14/17) with large vegetation 20x28 mm, s/p ICD and lead removal, - continue oxacillin per infectious disease. -AICD can be placed on contralateral site after 2 weeks of IV abx providing, blood clx remain negative and no active infx in R foot Anxiety The pt has episodes of shaking and respiratory distress that may be s/t anxiety. - Ativan as needed. Diabetic ketoacidosis, uncontrolled diabetes, improved -Status post insulin drip -Hemoglobin A1c 8.2 -Continue sliding scale insulin, BG's in the high 200s and 300s . Dc Levemer - change to 70/30 bid- - increased to 20 units bid - states good hypoglycemic awareness - as OP was on Metformin 850 mg bid- DC with MENDY- - restart Metformin 500 mg po bid- ff BMP Metabolic/toxic encephalopathy- likely secondary to infection, diabetic ketoacidosis, resolved Acute renal failure superimposed on chronic kidney disease stage II, improved -BRIANA inhibitor has been held- consider restarting eventually - Metformin restarted ff BMP DVT prevention - Lovenox Sub Q daily Palliative care following, patient would like to continue aggressive care d/w patient and - needs to set up with OP PCP and body engineer- that takes Medicaid- she will start looking around Discharge Planning: Needs life vest. Cardiology requested transfer for heart transplant evaluation however [facility] declined due to patient being a poor candidate from comorbidities.
[2017-10-29] MEDS: Senna/Docusate Sodium 8.6/50 MG Tablet PO SCH ×2 (10:35→20:25)
[2017-10-29] MEDS: Furosemide 20 MG Tablet PO SCH (10:35)
[2017-10-29] MEDS: Carvedilol 6.25 MG Tablet PO SCH ×2 (10:35→20:21)
[2017-10-29] MEDS: Collagenase Oint 30 GM Tube TOPICAL SCH (10:36)
[2017-10-29] MEDS: Enoxaparin Inj 40 MG/0.4 ML Syringe SQ SCH (10:36)
[2017-10-29] MEDS: Polyethylene Glycol 3350 17 GM Packet PO SCH (10:37)
--- NOTE | 2017-10-29 13:53 | P.PNCA ---
Subjective Interval history: alert in nad Physical Exam Vital signs: Vital Signs 10/28/17 15:43 10/28/17 16:00 10/28/17 20:00 Temperature 98.1 F 97.8 F Pulse Rate 60 65 68 Respiratory Rate 20 18 Blood Pressure 118/66 135/64 Pulse Oximetry 100 97 10/29/17 00:00 10/29/17 04:00 10/29/17 06:00 Temperature 98.2 F 98 F Pulse Rate 77 86 72 Respiratory Rate 18 18 Blood Pressure 142/69 H 123/64 Pulse Oximetry 98 96 10/29/17 08:00 Temperature 98.2 F Pulse Rate 66 Respiratory Rate 17 Blood Pressure 133/64 Pulse Oximetry 98 Intake & Output 10/28/17 10/29/17 10/29/17 18:59 06:59 18:59 Intake Total 1260 / 1260 540 / 540 100 / 100 Output Total 600 / 600 Balance 660 / 660 540 / 540 100 / 100 Weight 83.6 kg Intake: IV 300 / 300 300 / 300 100 / 100 Prostaphlin Inj 2 GM In NS Inj 300 / 300 300 / 300 100 / 100 100 ML @ 200 mls/hr IV.SIG Q4H JEFE Rx#:[id number] Oral 960 / 960 240 / 240 Output: Urine 600 / 600 Other: # Voids 1 Date of Last Bowel Movement 10/27/17 # Bowel Movements 0 Assessment and Plan - Assessment (1) ACS (acute coronary syndrome) Code(s): I24.9 - Acute ischemic heart disease, unspecified Status: Acute (2) Acidosis, lactic Code(s): E87.2 - Acidosis Status: Acute (3) DKA (diabetic ketoacidoses) Code(s): E13.10 - Other specified diabetes mellitus with ketoacidosis without coma Status: Acute (4) Frequent unifocal PVCs Code(s): I49.3 - Ventricular premature depolarization Status: Acute - Plan 1.) Ischemic cardiomyopathy - consult case management for transfer for heart transplant eval and palliative care, d/w Dr Fernando and nurse; he appears to assymptomatic when not tachycardic, prognosis is poor; reprtedly has medicaid now, d/w [facility] today no staff available to discuss indication for transplant eval, they did not call me back but contacted to decline the patient due to multiple co morbidities, i d/w Dr Florence 2.) SBE - pod #11 s/p lead and icd extraction per Dr Cunha 10/18/17, appears to be clinically improving and stable, abs per ID, then life vest 3.) Recommend outpatient f/u in heart transplant clinic at [facility] , d/w patient
[2017-10-29] MEDS: LORazepam 1 MG Tablet PO PRN (20:24)
[2017-10-29] MEDS: Hypromellose 0.3% Opth Gel 10 GM Bottle EACH EYE SCH (20:24)
[2017-10-30 07:43] LABS: Calcium 9.2 mg/dL (8.5-10.1); Carbon Dioxide 24.4 meq/L (21.0-32.0); Potassium 4.1 meq/L (3.5-5.1)
--- NOTE | 2017-10-30 09:14 | P.PN ---
Subjective Interval history: awake and alert, no complains laying flat good po- "eat everything" bowel movement- formed no voiding difficulties Physical Exam Vital signs: Vital Signs 10/29/17 12:00 10/29/17 16:00 10/29/17 20:00 Temperature 97.9 F 97.7 F Pulse Rate 64 76 84 Respiratory Rate 17 18 Blood Pressure 131/67 144/76 H Pulse Oximetry 98 99 10/30/17 00:00 10/30/17 04:00 Temperature 97.7 F 97.6 F Pulse Rate 68 68 Respiratory Rate 18 18 Blood Pressure 120/72 114/65 Pulse Oximetry 98 98 Intake & Output 10/29/17 10/30/17 10/30/17 18:59 06:59 18:59 Intake Total 200 / 200 640 / 640 Output Total 725 / 725 Balance 200 / 200 -85 / -85 Weight 83.4 kg Intake: IV 200 / 200 400 / 400 Prostaphlin Inj 2 GM In NS Inj 200 / 200 400 / 400 100 ML @ 200 mls/hr IV.SIG Q4H [facility] Rx#:[id number] Oral 240 / 240 Output: Urine 725 / 725 Urine/Stool Mix 0 / 0 Other: Date of Last Bowel Movement 10/29/17 Narrative: GENERAL: Not in distress SKIN: Warm and dry. No rash. AICD removal surgical site at left upper chest, healing well., no erythema CARDIOVASCULAR: Regular rate and rhythm. RESPIRATORY: Clear to auscultation. Breath sounds equal bilaterally. GASTROINTESTINAL: Abdomen soft, non-tender, nondistended. Normoactive bowel sounds x4. MUSCULOSKELETAL: No obvious deformities. Extremities without clubbing, cyanosis , or edema. Right foot , s/p amputation of toes- sutures intact, no erythema, minimal blood on gauze moves foot well NEUROLOGICAL: Awake and alert. No obvious cranial nerve deficits. Motor grossly within normal limits. Moving all extremities spontaneously. Normal speech. Results - Labs CBC & Chem 7: 10/29/17 06:26 10/30/17 06:05 Laboratory Results - last 24 hr 10/29/17 10/29/17 10/29/17 11:45 18:06 20:50 Sodium Potassium Chloride Carbon Dioxide Anion Gap BUN Creatinine Estimated GFR POC Glucose 307 H 117 H 256 H Random Glucose Calcium 10/30/17 10/30/17 06:05 08:22 Sodium 138 Potassium 4.1 Chloride 104 Carbon Dioxide 24.4 Anion Gap 10 BUN 15 Creatinine 0.89 Estimated GFR 87 L POC Glucose 266 H Random Glucose 234 H Calcium 9.2 - Procedures CARA/ s/p ICD and lead removal. Assessment and Plan - Assessment (1) Staphylococcus aureus bacteremia with sepsis Code(s): A41.01 - Sepsis due to Methicillin susceptible Staphylococcus aureus Status: Acute - Plan This is a 57-year-old male with past medical history of coronary artery disease status post CABG, diabetes mellitus, COPD presenting with nausea, vomiting and abdominal pain. Non-ST elevated myocardial infarction Systolic CHF with severely reduced EF of 25-30% - clinically not in failure -Cardiology has been consulted and says he is not a candidate for cardiac catheterization. They recommended palliative care or referral for heart transplant work-up, [facility] has been contacted and said that patient is not a good candidate at this point because of his comorbidites. Continue aspirin, statin and coreg, s/p removal of the ICD 10/18/17 due to infection; - patient will still need a lifevest on d/c - restart Lisinorpil 2.5 mg po daily today Sepsis secondary to MSSA bacteremia -High-grade MSSA infection from PICC line, status post PICC line removal. AICD removed.- 10/18 -Continue oxacillin per infectious disease.- started 10/16 - will d/w ID- regarding PICC Recent osteomyelitis: -Foot MRI showed Slight degree of nonspecific edema involving the distal portions of the second third and fifth metatarsal bones not present on the prior study, podiatry consulted and signed off. S/P Right second metatarsal head resection, s/p Right third ray amputation with Dr Miranda 10/21, heel weightbearing to right foot in postop shoe, okay for discharge with podiatry with appropriate antibiotic recommendation from infectious disease. Follow-up within 1 week of discharge. dressing change daily. 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 -AICD can be placed on contralateral site after 2 weeks of IV abx providing, blood clx remain negative and no active infx in R foot Anxiety- improved The pt has episodes of shaking and respiratory distress that may be s/t anxiety. - Ativan as needed. Diabetic ketoacidosis, uncontrolled diabetes, improved -Status post insulin drip -Hemoglobin A1c 8.2 -Continue sliding scale insulin, BG's in the high 200s and 300s . Dc Levemer - change to 70/30 bid- - increased to 20 units bid - states good hypoglycemic awareness - as OP was on Metformin 850 mg bid- MENDY DC on admission - restart Metformin 500 mg po bid- BMPs improved- good po, good UO- increase to home dose of 850 mg bid Metabolic/toxic encephalopathy- likely secondary to infection, diabetic ketoacidosis, resolved Acute renal failure superimposed on chronic kidney disease stage II, improved -BRIANA inhibitor has been held- consider restarting eventually - Metformin and increased - ff BMP DVT prevention - Lovenox Sub Q daily Palliative care following, patient would like to continue aggressive care d/w patient and - needs to set up with OP PCP and milking worker- that takes Medicaid- she will start looking around Discharge Planning: Needs life vest. Cardiology requested transfer for heart transplant evaluation however [facility] declined due to patient being a poor candidate from comorbidities.
[2017-10-30] MEDS: Polyethylene Glycol 3350 17 GM Packet PO SCH (10:07)
[2017-10-30] MEDS: Carvedilol 6.25 MG Tablet PO SCH ×2 (10:08→20:56)
[2017-10-30] MEDS: Furosemide 20 MG Tablet PO SCH (10:08)
[2017-10-30] MEDS: Senna/Docusate Sodium 8.6/50 MG Tablet PO SCH ×2 (10:08→20:57)
[2017-10-30] MEDS: Enoxaparin Inj 40 MG/0.4 ML Syringe SQ SCH (10:09)
[2017-10-30] MEDS: Insulin NovoLOG Aspart Correctional Sugar Inj SQ SCH ×4 (10:09→20:57)
[2017-10-30] MEDS: Collagenase Oint 30 GM Tube TOPICAL SCH (10:13)
--- NOTE | 2017-10-30 15:59 | P.PNCA ---
Subjective Interval history: alert in nad Physical Exam Vital signs: Vital Signs 10/29/17 16:00 10/29/17 20:00 10/30/17 00:00 Temperature 97.9 F 97.7 F 97.7 F Pulse Rate 76 84 68 Respiratory Rate 17 18 18 Blood Pressure 131/67 144/76 H 120/72 Pulse Oximetry 98 99 98 10/30/17 04:00 10/30/17 08:00 10/30/17 12:00 Temperature 97.6 F 97.4 F L 98.1 F Pulse Rate 68 73 63 Respiratory Rate 18 16 16 Blood Pressure 114/65 125/72 141/80 H Pulse Oximetry 98 97 98 Intake & Output 10/29/17 10/30/17 10/30/17 18:59 06:59 18:59 Intake Total 200 / 200 640 / 640 100 / 100 Output Total 725 / 725 Balance 200 / 200 -85 / -85 100 / 100 Weight 83.4 kg Intake: IV 200 / 200 400 / 400 100 / 100 Prostaphlin Inj 2 GM In NS Inj 200 / 200 400 / 400 100 / 100 100 ML @ 200 mls/hr IV.SIG Q4H [facility] Rx#:[id number] Oral 240 / 240 Output: Urine 725 / 725 Urine/Stool Mix 0 / 0 Other: Date of Last Bowel Movement 10/29/17 Assessment and Plan - Assessment (1) ACS (acute coronary syndrome) Code(s): I24.9 - Acute ischemic heart disease, unspecified Status: Acute (2) Acidosis, lactic Code(s): E87.2 - Acidosis Status: Acute (3) DKA (diabetic ketoacidoses) Code(s): E13.10 - Other specified diabetes mellitus with ketoacidosis without coma Status: Acute (4) Frequent unifocal PVCs Code(s): I49.3 - Ventricular premature depolarization Status: Acute - Plan 1.) Ischemic cardiomyopathy - consult case management for transfer for heart transplant eval and palliative care, d/w Dr Fernando and nurse; he appears to assymptomatic when not tachycardic, prognosis is poor; reprtedly has medicaid now, d/w [facility] today no staff available to discuss indication for transplant eval, they did not call me back but contacted cm to decline the patient due to multiple co morbidities, i d/w Dr Florence 2.) SBE - pod #12 s/p lead and icd extraction per Dr Cunha 10/18/17, appears to be clinically improving and stable, abs per ID, then life vest 3.) Recommend outpatient f/u in heart transplant clinic at [facility] , d/w patient
[2017-10-30] MEDS: LORazepam 1 MG Tablet PO PRN (19:51)
--- NOTE | 2017-10-30 20:02 | P.PNPOD ---
Physical Exam Vital signs: Vital Signs 10/30/17 00:00 10/30/17 04:00 10/30/17 08:00 Temperature 97.7 F 97.6 F 97.4 F L Pulse Rate 68 68 73 Respiratory Rate 18 18 16 Blood Pressure 120/72 114/65 125/72 Pulse Oximetry 98 98 97 10/30/17 12:00 10/30/17 19:44 Temperature 98.1 F 98.3 F Pulse Rate 63 64 Respiratory Rate 16 18 Blood Pressure 141/80 H 123/64 Pulse Oximetry 98 98 Intake & Output 10/30/17 10/30/17 10/31/17 06:59 18:59 06:59 Intake Total 640 / 640 200 / 200 Output Total 725 / 725 Balance -85 / -85 200 / 200 Weight 83.4 kg Intake: IV 400 / 400 200 / 200 Prostaphlin Inj 2 GM In NS Inj 400 / 400 200 / 200 100 ML @ 200 mls/hr IV.SIG Q4H [facility] Rx#:[id number] Oral 240 / 240 Output: Urine 725 / 725 Urine/Stool Mix 0 / 0 Other: Date of Last Bowel Movement 10/29/17 Medications and Allergies Active Medications: Active Medications Acetaminophen (Tylenol) 650 mg PO Q6H PRN PRN Reason: PAIN 1-10 AND/OR FEVER >101F Hydrocodone Bitart/Acetaminophen (Elton 5/325) 1 tab PO Q4H PRN PRN Reason: PAIN SCALE 1 TO 5 Last Admin: 10/27/17 21:29 Dose: 1 tab Al Hydroxide/Mg Hydroxide (Milk Of Magnesia Liq) 30 ml PO Q12H PRN PRN Reason: Mild Constipation Albuterol (Albuterol Neb (Prn)) 2.5 mg NEB Q2HR NEB PRN PRN Reason: SHORTNESS OF BREATH/WHEEZING Last Admin: 10/13/17 19:50 Dose: 2.5 mg Artificial Tears (Genteal Severe Dry Eye Relief 0.3% Opth Gel) 1 drops EACH EYE [facility] Last Admin: 10/29/17 20:24 Dose: Not Given Aspirin (Ecotrin) 325 mg PO DAILY [facility] Last Admin: 10/30/17 10:08 Dose: 325 mg Atorvastatin Calcium (Lipitor) 40 mg PO DAILY [facility] Last Admin: 10/30/17 10:08 Dose: 40 mg Bisacodyl (Dulcolax Supp) 10 mg RECTAL DAILY PRN PRN Reason: SEVERE CONSITIPATION Carvedilol (Coreg) 6.25 mg PO BID [facility] Last Admin: 10/30/17 10:08 Dose: 6.25 mg Collagenase (Santyl Oint) 1 applicatio TOPICAL DAILY [facility] Last Admin: 10/30/17 10:13 Dose: 1 applicatio Cyclobenzaprine HCl (Flexeril) 5 mg PO Q8H PRN PRN Reason: muscle relaxer Last Admin: 10/20/17 09:46 Dose: 5 mg Dextrose (D50w Vial) 50 ml IV.PUSH UNSCH PRN PRN Reason: PER HYPOGLYCEMIA PROTOCOL Enoxaparin Sodium (Lovenox Inj) 40 mg SQ DAILY [facility] Last Admin: 10/30/17 10:09 Dose: 40 mg Furosemide (Lasix) 20 mg PO DAILY [facility] Last Admin: 10/30/17 10:08 Dose: 20 mg Glucagon (Glucagon Inj) 1 mg OTHER PRN PRN PRN Reason: for Hypoglycemia Protocol Oxacillin Sodium 2 gm/ Sodium (Chloride) 100 mls @ 200 mls/hr IV.SIG Q4H [facility] Last Admin: 10/30/17 18:00 Dose: 200 mls/hr Sodium Phosphate 30 mmol/ (Sodium Chloride) 260 mls @ 42 mls/hr IV.SIG UNSCH PRN PRN Reason: For Phosphorus < 2.5 mg/dL Insulin Aspart (Novolog Insulin Correctional Sugar Inj) 0 unit SQ ACHS [facility]; Protocol Last Admin: 10/30/17 17:00 Dose: Not Given Insulin Human Isoph/Insulin Regular (Novolin 70/30 Inj) 20 units SQ BID@0800, 1700 [facility] Last Admin: 10/30/17 17:00 Dose: 20 units Lactulose (Lactulose Liq) 30 ml PO DAILY PRN PRN Reason: SEVERE CONSITIPATION Last Admin: 10/08/17 17:04 Dose: 30 ml Lisinopril (Prinivil) 2.5 mg PO DAILY [facility] Lorazepam (Ativan) 1 mg PO Q8H PRN PRN Reason: ANXIETY Last Admin: 10/30/17 19:51 Dose: 1 mg Magnesium Oxide (Mag-Ox) 800 mg PO UNSCH PRN PRN Reason: For Magnesium 1.2 - 1.6 mg/dL [facility]) [facility] Last Admin: 10/30/17 18:00 Dose: 850 mg Miscellaneous (Pill Splitter) 1 each [facility] Nitroglycerin (Nitrostat Sl) 0.4 mg SL Q5M PRN PRN Reason: CHEST PAIN Ondansetron HCl (Zofran Inj) 4 mg IV.PUSH Q6H PRN PRN Reason: NAUSEA OR VOMITING Last Admin: 10/26/17 09:25 Dose: 4 mg Pantoprazole Sodium (Protonix) 40 mg PO DAILY [facility] Last Admin: 10/30/17 10:08 Dose: 40 mg Polyethylene Glycol (Miralax) 17 gm PO DAILY [facility] Last Admin: 10/30/17 10:07 Dose: Not Given Senna/Docusate Sodium (Zenaida-Colace) 1 tab PO BID [facility] Last Admin: 10/30/17 10:08 Dose: Not Given Sennosides (Senokot) 17.2 mg PO Q12H PRN PRN Reason: Moderate Constipation Sodium Chloride (Ns Flush) 2 ml IV.FLUSH PRN PRN PRN Reason: FLUSH AFTER USING IV ACCESS Sodium Chloride (Ns Flush) 2 ml IV.FLUSH BID [facility] Last Admin: 10/30/17 10:08 Dose: 2 ml Allergies Allergy/AdvReac Type Severity Reaction Status Date / Time potassium iodide Allergy Severe Swelling Verified 10/06/17 09:36 povidone-iodine Allergy Severe Swelling Verified 10/06/17 09:36 shellfish derived Allergy Severe Swelling Verified 10/06/17 09:36 sodium iodide Allergy Severe Swelling Verified 10/06/17 09:36 sodium iodide Allergy Severe Swelling Verified 10/06/17 09:36 Home Medications Medication Instructions Recorded Confirmed Type atorvastatin 40 mg PO DAILY 10/06/17 10/06/17 History carvedilol 6.25 mg PO BID 10/06/17 10/06/17 History glyburide 2.5 mg PO BID 10/06/17 10/06/17 History lisinopril 20 mg PO DAILY 10/06/17 10/06/17 History magnesium oxide 400 mg PO BID 10/06/17 10/06/17 History metformin 850 mg PO TID 10/06/17 10/06/17 History nitroglycerin [Nitrostat] 0.4 mg SUBLINGUAL Q5-15M PRN 10/06/17 10/06/17 History pravastatin 40 mg PO DAILY 10/06/17 10/06/17 History spironolactone 50 mg PO DAILY 10/06/17 10/06/17 History Results - Labs CBC & Chem 7: 10/29/17 06:26 10/30/17 06:05 Laboratory Results - last 24 hr 10/29/17 10/30/17 10/30/17 20:50 06:05 08:22 Sodium 138 Potassium 4.1 Chloride 104 Carbon Dioxide 24.4 Anion Gap 10 BUN 15 Creatinine 0.89 Estimated GFR 87 L POC Glucose 256 H 266 H Random Glucose 234 H Calcium 9.2 10/30/17 10/30/17 12:34 17:08 Sodium Potassium Chloride Carbon Dioxide Anion Gap BUN Creatinine Estimated GFR POC Glucose 240 H 129 H Random Glucose Calcium - Procedures CARA/ s/p ICD and lead removal. Assessment and Plan - Assessment (1) Acute osteomyelitis of metatarsal bone of right foot Code(s): M86.171 - Other acute osteomyelitis, right ankle and foot Status: Acute Plan: Bandage changed today. Ordered betadine wet to dry dressing R foot to be applied per nursing every 3 days. Follow up with Dr Miranda 1 week after discharge to evaluate for suture removal Nonweightbearing right forefoot. Heel contact only, minimally, to sustain balance.
[2017-10-30] MEDS: Hypromellose 0.3% Opth Gel 10 GM Bottle EACH EYE SCH (20:56)
--- NOTE | 2017-10-31 09:29 | P.PN ---
Subjective Interval history: no complains no diarrhea no chest pain or shortness of breath Physical Exam Vital signs: Vital Signs 10/30/17 12:00 10/30/17 16:00 10/30/17 19:44 Temperature 98.1 F 97.5 F L 98.3 F Pulse Rate 67 65 64 Respiratory Rate 16 16 18 Blood Pressure 141/80 H 124/70 123/64 Pulse Oximetry 98 96 98 10/30/17 20:00 10/31/17 00:00 10/31/17 04:00 Temperature 97.4 F L 97.8 F Pulse Rate 63 90 70 Respiratory Rate 16 18 Blood Pressure 107/63 104/59 L Pulse Oximetry 94 L 94 L Intake & Output 10/30/17 10/31/17 10/31/17 18:59 06:59 18:59 Intake Total 1396 / 1396 1140 / 1140 Output Total 400 / 400 1200 / 1200 Balance 996 / 996 -60 / -60 Weight 84.4 kg Intake: IV 300 / 300 300 / 300 Prostaphlin Inj 2 GM In NS Inj 300 / 300 300 / 300 100 ML @ 200 mls/hr IV.SIG Q4H [facility] Rx#:[id number] Oral 1096 / 1096 840 / 840 Output: Urine 400 / 400 1200 / 1200 Other: # Bowel Movements 1 Narrative: GENERAL: Not in distress SKIN: Warm and dry. No rash. AICD removal surgical site at left upper chest, healing well., no erythema CARDIOVASCULAR: Regular rate and rhythm. RESPIRATORY: Clear to auscultation. Breath sounds equal bilaterally. GASTROINTESTINAL: Abdomen soft, non-tender, nondistended. Normoactive bowel sounds x4. MUSCULOSKELETAL: No obvious deformities. Extremities without clubbing, cyanosis , or edema. Right foot , s/p amputation of toes- sutures intact, no erythema, minimal blood on gauze moves foot well, no calf swelling or tenderness NEUROLOGICAL: Awake and alert. No obvious cranial nerve deficits. Motor grossly within normal limits. Moving all extremities spontaneously. Normal speech. Results - Labs CBC & Chem 7: 10/29/17 06:26 10/30/17 06:05 Laboratory Results - last 24 hr 10/30/17 10/30/17 10/30/17 12:34 17:08 20:55 POC Glucose 240 H 129 H 128 H 10/31/17 08:18 POC Glucose 130 H - Procedures CARA/ s/p ICD and lead removal. Assessment and Plan - Assessment (1) Staphylococcus aureus bacteremia with sepsis Code(s): A41.01 - Sepsis due to Methicillin susceptible Staphylococcus aureus Status: Acute - Plan This is a 57-year-old male with past medical history of coronary artery disease status post CABG, diabetes mellitus, COPD presenting with nausea, vomiting and abdominal pain. Non-ST elevated myocardial infarction Systolic CHF with severely reduced EF of 25-30% - clinically not in failure -Cardiology has been consulted and says he is not a candidate for cardiac catheterization. They recommended palliative care or referral for heart transplant work-up[facility] that patient is not a good candidate at this point because of his comorbidites. Continue aspirin, statin and coreg, s/p removal of the ICD 10/18/17 due to infection; - patient will still need a lifevest on d/c - restart Lisinorpil 2.5 mg po daily today - monitor Sepsis secondary to MSSA bacteremia -High-grade MSSA infection from PICC line, status post PICC line removal. AICD removed.- 10/18 -Continue oxacillin per infectious disease.- started 10/16 - will d/w ID- regarding PICC Recent osteomyelitis:s/p Right third ray amputation with Dr Miranda 10/21, -Foot MRI showed Slight degree of nonspecific edema involving the distal portions of the second third and fifth metatarsal bones not present on the prior study, podiatry consulted and signed off. on IV Oxacillin Bandage changed 10/[address] Miranda Ordered betadine wet to dry dressing R foot to be applied per nursing every 3 days. Follow up with Dr Miranda 1 week after discharge to evaluate for suture removal Nonweightbearing right forefoot. Heel contact only, minimally, to sustain balance. will d/w ID- Dr. 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 -AICD can be placed on contralateral site after 2 weeks of IV abx providing, blood clx remain negative and no active infx in R foot Anxiety- improved The pt has episodes of shaking and respiratory distress that may be s/t anxiety. - Ativan as needed. Diabetic ketoacidosis, uncontrolled diabetes, improved- readings overall improving -Status post insulin drip -Hemoglobin A1c 8.2 -Continue sliding scale insulin, BG's in the high 200s and 300s . Dc Levemer - change to 70/30 bid- - increased to 20 units bid - states good hypoglycemic awareness - as OP was on Metformin 850 mg bid- MENDY DC on admission - restart Metformin 500 mg po bid- BMPs improved- good po, good UO- increased to home dose of 850 mg bid Metabolic/toxic encephalopathy- likely secondary to infection, diabetic ketoacidosis, resolved Acute renal failure superimposed on chronic kidney disease stage II, improved -BRIANA inhibitor has been held- consider restarting eventually - Metformin -restarted DVT prevention - Lovenox Sub Q daily Palliative care following, patient would like to continue aggressive care d/w patient and - needs to set up with OP PCP and venipuncturist- that takes Medicaid- she will start looking around Discharge Planning: Needs life vest. Cardiology requested transfer for heart transplant evaluation however [facility] declined due to patient being a poor candidate from comorbidities. d/w patient at length
[2017-10-31] MEDS: Enoxaparin Inj 40 MG/0.4 ML Syringe SQ SCH (10:24)
[2017-10-31] MEDS: Furosemide 20 MG Tablet PO SCH (10:25)
[2017-10-31] MEDS: Carvedilol 6.25 MG Tablet PO SCH ×2 (10:26→21:02)
[2017-10-31] MEDS: Lisinopril 5 MG Tablet PO SCH (10:26)
[2017-10-31] MEDS: Insulin NovoLOG Aspart Correctional Sugar Inj SQ SCH ×4 (10:28→21:02)
[2017-10-31] MEDS: Senna/Docusate Sodium 8.6/50 MG Tablet PO SCH ×2 (10:34→21:02)
[2017-10-31] MEDS: Collagenase Oint 30 GM Tube TOPICAL SCH (10:34)
[2017-10-31] MEDS: Polyethylene Glycol 3350 17 GM Packet PO SCH (10:34)
--- NOTE | 2017-10-31 14:18 | P.PNCA ---
Subjective Interval history: alert in nad Physical Exam Vital signs: Vital Signs 10/30/17 16:00 10/30/17 19:44 10/30/17 20:00 Temperature 97.5 F L 98.3 F Pulse Rate 65 64 63 Respiratory Rate 16 18 Blood Pressure 124/70 123/64 Pulse Oximetry 96 98 10/31/17 00:00 10/31/17 04:00 10/31/17 08:00 Temperature 97.4 F L 97.8 F 97.6 F Pulse Rate 90 70 75 Respiratory Rate 16 18 20 Blood Pressure 107/63 104/59 L 106/56 L Pulse Oximetry 94 L 94 L 98 10/31/17 12:00 Temperature 97.9 F Pulse Rate 69 Respiratory Rate 20 Blood Pressure 126/67 Pulse Oximetry 97 Intake & Output 10/30/17 10/31/17 10/31/17 18:59 06:59 18:59 Intake Total 1396 / 1396 1140 / 1140 Output Total 400 / 400 1200 / 1200 Balance 996 / 996 -60 / -60 Weight 84.4 kg Intake: IV 300 / 300 300 / 300 Prostaphlin Inj 2 GM In NS Inj 300 / 300 300 / 300 100 ML @ 200 mls/hr IV.SIG Q4H [facility] Rx#:[id number] Oral 1096 / 1096 840 / 840 Output: Urine 400 / 400 1200 / 1200 Other: Date of Last Bowel Movement 10/29/17 # Bowel Movements 1 Assessment and Plan - Assessment (1) ACS (acute coronary syndrome) Code(s): I24.9 - Acute ischemic heart disease, unspecified Status: Acute (2) Acidosis, lactic Code(s): E87.2 - Acidosis Status: Acute (3) DKA (diabetic ketoacidoses) Code(s): E13.10 - Other specified diabetes mellitus with ketoacidosis without coma Status: Acute (4) Frequent unifocal PVCs Code(s): I49.3 - Ventricular premature depolarization Status: Acute - Plan 1.) Ischemic cardiomyopathy - consult case management for transfer for heart transplant eval and palliative care, d/w Dr Fernando and nurse; he appears to assymptomatic when not tachycardic, prognosis is poor; reprtedly has medicaid now, d/w [facility] today no staff available to discuss indication for transplant eval, they did not call me back but contacted cm to decline the patient due to multiple co morbidities, i d/w Dr Florence 2.) SBE - pod #13 s/p lead and icd extraction per Dr Cunha 10/18/17, appears to be clinically improving and stable, abs per ID, then life vest 3.) Recommend outpatient f/u in heart transplant clinic at [facility] , d/w patient
--- NOTE | 2017-10-31 17:36 | P.PNID ---
Subjective Remarks: no fever s/p partial ray amputatton pt has vest now pt now refusing PICC Antibiotics: oxacillin Past Medical History: R 2nd toe osteo CAD Allergies/Adverse Reactions: Allergies potassium iodide Allergy (Severe, Verified 10/06/17 09:36) Swelling povidone-iodine Allergy (Severe, Verified 10/06/17 09:36) Swelling shellfish derived Allergy (Severe, Verified 10/06/17 09:36) Swelling sodium iodide Allergy (Severe, Verified 10/06/17 09:36) Swelling sodium iodide Allergy (Severe, Verified 10/06/17 09:36) Swelling Objective Vital Signs 10/30/17 19:44 10/30/17 20:00 10/31/17 00:00 Temperature 98.3 F 97.4 F L Pulse Rate 64 63 90 Respiratory Rate 18 16 Blood Pressure 123/64 107/63 Pulse Oximetry 98 94 L 10/31/17 04:00 10/31/17 08:00 10/31/17 12:00 Temperature 97.8 F 97.6 F 97.9 F Pulse Rate 70 75 69 Respiratory Rate 18 20 20 Blood Pressure 104/59 L 106/56 L 126/67 Pulse Oximetry 94 L 98 97 Intake & Output 10/30/17 10/31/17 10/31/17 18:59 06:59 18:59 Intake Total 1396 / 1396 1140 / 1140 100 / 100 Output Total 400 / 400 1200 / 1200 Balance 996 / 996 -60 / -60 100 / 100 Weight 84.4 kg Intake: IV 300 / 300 300 / 300 100 / 100 Prostaphlin Inj 2 GM In NS Inj 300 / 300 300 / 300 100 / 100 100 ML @ 200 mls/hr IV.SIG Q4H JEFE Rx#:[id number] Oral 1096 / 1096 840 / 840 Output: Urine 400 / 400 1200 / 1200 Other: Date of Last Bowel Movement 10/29/17 # Bowel Movements 1 10/21/17 17:01 Other Fungal Smear - Final No fungal elements seen 10/21/17 17:01 Other Fungal Culture - Preliminary No growth in 1 week 10/21/17 17:01 Other Acid Fast Bacilli Smear - Final No acid fast bacilli seen 10/21/17 17:01 Other Mycobacterial Culture - Preliminary No growth in 1 week Lab - Chemistry Results 08/10/0910/29/17 10/30/17 18:06 20:50 06:05 Sodium 138 Potassium 4.1 Chloride 104 Carbon Dioxide 24.4 Anion Gap 10 BUN 15 Creatinine 0.89 Estimated GFR 87 L POC Glucose 117 H 256 H Random Glucose 234 H Calcium 9.2 10/30/17 10/30/17 10/30/17 08:22 12:34 17:08 Sodium Potassium Chloride Carbon Dioxide Anion Gap BUN Creatinine Estimated GFR POC Glucose 266 H 240 H 129 H Random Glucose Calcium 10/30/17 10/31/17 10/31/17 20:55 08:18 12:08 Sodium Potassium Chloride Carbon Dioxide Anion Gap BUN Creatinine Estimated GFR POC Glucose 128 H 130 H 239 H Random Glucose Calcium 10/31/17 16:24 Sodium Potassium Chloride Carbon Dioxide Anion Gap BUN Creatinine Estimated GFR POC Glucose 121 H Random Glucose Calcium Imaging: ITS Impressions Abdomen/Pelvis CT 10/06/17 00:00 CONCLUSION: 1. No acute abnormality seen. 2. Increased density at the posterior lower lobes likely related to mild atelectasis. 3. Scattered atherosclerotic calcifications throughout the arterial system. 4. Degenerative and postsurgical change in the lumbar spine. SPECT Scan-Bone NM 10/17/17 00:00 CONCLUSION: Chest X-Ray 10/18/17 11:21 CONCLUSION: Negative for pneumothorax. Mild compensated cardiomegaly. Foot MRI 10/20/17 00:00 CONCLUSION: 1. Slight degree of nonspecific edema involving the distal portions of the second third and fifth metatarsal bones not present on the prior study unusual to represent osteomyelitis and the rest of the marrow appears intact. Findings could be further characterized with white blood cell scan based on clinical grounds. Foot X-Ray 10/21/17 00:00 CONCLUSION: Amputation of the second and third toes and distal metatarsals as above. Physical Exam: GENERAL: NAD SKIN: Warm and dry. CARDIOVASCULAR: Regular rate and rhythm. RESPIRATORY: No accessory muscle use. Clear to auscultation. Breath sounds equal bilaterally. GASTROINTESTINAL: Abdomen soft, non-tender, nondistended. Hepatic and splenic margins not palpable. MUSCULOSKELETAL: Extremities without clubbing, cyanosis, or edema. No obvious deformities. dressing in place R foot R foot with dressing in place NEUROLOGICAL: Awake and alert. No obvious cranial nerve deficits. Motor grossly within normal limits. Five out of 5 muscle strength in the arms and legs. Normal speech. PSYCHIATRIC: Appropriate mood and affect; insight and judgment normal. Assessment and Plan (1) Staphylococcal sepsis Status: Acute Code(s): A41.2 - Sepsis due to unspecified staphylococcus (2) Staphylococcus aureus bacteremia with sepsis Status: Acute Code(s): A41.01 - Sepsis due to Methicillin susceptible Staphylococcus aureus - Plan MSSAhigh grade bactermia 2/2 PICC line Recent osteo 2 nd toe sp amputaiton AICD associated TV endocarditis sp AICD placement in May + CARA with veg'n 20x28 mm Non healing R 2nd toe amputation site: neg Xray - bone scan positive for osteo - sp debridement/ray amputation - clx negative cont oxacillin x 6 weeks from day of removal of AICD - monitoring parameters: CBC, CMP at least weekly AICD can be placed on contralateral site after 2 weeks of IV abx providing blood clx remian negative and no active infx in R foot PICC OPAT paola RN paola Hess
--- NOTE | 2017-10-31 17:47 | P.DCO ---
Post Hospital Infusion Therapy Location of Infusion Therapy: Home Health Care IV Infusion Order Patient Weight: 84.4 kg - Diagnosis (1) Staphylococcus aureus bacteremia with sepsis Code(s): A41.01 - Sepsis due to Methicillin susceptible Staphylococcus aureus - Administer Medication Cefazolin Dose: 2 grams IV Directions: q 8 hours Start Treatment: 10/31/17 Stop Treatment: 11/29/17 - Additional Information Venous Access: PICC Line Additional Instructions: [x] Peripheral flush and dressing changes per protocol [x] Implanted port and central liner checker: * Implanted port: 10 ml Normal Saline followed by 5 ml Heparin 100 units/ml Heparin flush after each use and monthly to maintain. [] May leave port accessed during therapy. [] May leave peripheral site accessed for duration of therapy. [x] If patient has SOB or respiratory distress, check oxygen saturation. If less than 90% or clinical signs of respiratory distress, administer oxygen at 2 L/min. via nasal cannula and notify physician. [x] Anaphylaxis/Reaction orders: * Stop infusion. * Keep IV line open with saline flush. * Notify physician. * Monitor vital signs every 15 minutes until symptoms resolve. * Check Oxygen saturation; Oxygen at 2 L/min. via nasal cannula if less than 90% or clinical signs of respiratory distress. * Administer diphenhydramine (Benadryl) 25 mg IV STAT, (unless patient has received as pre-med). May repeat once, if necessary. * Solu-Cortef 250 mg IVP over 30-60 seconds, use 100 mg vials for each dissolution. * Epinephrine (1mg/1 ml) 0.3 mg subcutaneously or IVP now with any signs of respiratory distress. * Check with physician for new additional pre-med orders if patient is re- challenged or re-treated. [x] May remove PICC line when treatment complete, after confirming with Physician. [x] If the patient is admitted to the hospital, the ED, or transferred via [facility] , complete transfer form including medication reconciliation order sheet. Weekly Labs: CBC w/diff, CMP Allergies potassium iodide Allergy (Severe, Verified 10/06/17 09:36) Swelling povidone-iodine Allergy (Severe, Verified 10/06/17 09:36) Swelling shellfish derived Allergy (Severe, Verified 10/06/17 09:36) Swelling sodium iodide Allergy (Severe, Verified 10/06/17 09:36) Swelling sodium iodide Allergy (Severe, Verified 10/06/17 09:36) Swelling
[2017-10-31] MEDS: LORazepam 1 MG Tablet PO PRN (21:02)
[2017-10-31] MEDS: Hypromellose 0.3% Opth Gel 10 GM Bottle EACH EYE SCH (21:02)
[2017-11-01] MEDS: Furosemide 20 MG Tablet PO SCH (09:07)
[2017-11-01] MEDS: Enoxaparin Inj 40 MG/0.4 ML Syringe SQ SCH (09:10)
[2017-11-01] MEDS: Insulin NovoLOG Aspart Correctional Sugar Inj SQ SCH ×2 (09:11→12:54)
[2017-11-01] MEDS: Carvedilol 6.25 MG Tablet PO SCH (09:13)
[2017-11-01] MEDS: Polyethylene Glycol 3350 17 GM Packet PO SCH (09:13)
[2017-11-01] MEDS: Senna/Docusate Sodium 8.6/50 MG Tablet PO SCH (09:14)
[2017-11-01] MEDS: Collagenase Oint 30 GM Tube TOPICAL SCH (09:14)
[2017-11-01] MEDS: Lisinopril 5 MG Tablet PO SCH (09:14)
--- NOTE | 2017-11-01 10:37 | P.PN ---
Subjective Interval history: agrees to go for PICC placment today no fever pain controlled no diarrhea BS better Physical Exam Vital signs: Vital Signs 10/31/17 12:00 10/31/17 16:00 10/31/17 20:00 Temperature 97.9 F 97.8 F 97.3 F L Pulse Rate 69 76 60 Respiratory Rate 20 18 18 Blood Pressure 126/67 114/58 L 123/58 L Pulse Oximetry 97 97 97 10/31/17 23:41 11/01/17 00:00 11/01/17 03:47 Temperature 97.4 F L 97.3 F L Pulse Rate 64 72 70 Respiratory Rate 18 18 Blood Pressure 100/57 L 91/52 L Pulse Oximetry 97 97 11/01/17 04:00 11/01/17 06:00 11/01/17 07:32 Temperature 97.8 F Pulse Rate 75 75 Respiratory Rate 18 18 Blood Pressure 99/52 L Pulse Oximetry 99 Intake & Output 10/31/17 11/01/17 11/01/17 18:59 06:59 18:59 Intake Total 780 / 780 300 / 300 Output Total 1600 / 1600 0 / 0 Balance -820 / -820 300 / 300 Weight 84.4 kg 85.1 kg Intake: IV 300 / 300 300 / 300 Prostaphlin Inj 2 GM In NS Inj 300 / 300 300 / 300 100 ML @ 200 mls/hr IV.SIG Q4H JEFE Rx#:[id number] Oral 480 / 480 Output: Urine 1600 / 1600 0 / 0 Other: Date of Last Bowel Movement 10/29/17 10/29/17 # Bowel Movements 1 Narrative: GENERAL: Not in distress SKIN: Warm and dry. No rash. AICD removal surgical site at left upper chest, healing well., no erythema CARDIOVASCULAR: Regular rate and rhythm. RESPIRATORY: Clear to auscultation. Breath sounds equal bilaterally. GASTROINTESTINAL: Abdomen soft, non-tender, nondistended. Normoactive bowel sounds x4. MUSCULOSKELETAL: No obvious deformities. Extremities without clubbing, cyanosis , or edema. Right foot , s/p amputation of toes- sutures intact, n + erythema, wound- minimal blood on gauze moves foot well, no calf swelling or tenderness NEUROLOGICAL: Awake and alert. No obvious cranial nerve deficits. Motor grossly within normal limits. Moving all extremities spontaneously. Normal speech. Results - Labs CBC & Chem 7: 10/29/17 06:26 10/30/17 06:05 Laboratory Results - last 24 hr 10/31/17 10/31/17 10/31/17 12:08 16:24 21:01 POC Glucose 239 H 121 H 117 H 11/01/17 07:01 POC Glucose 96 - Procedures CARA/ s/p ICD and lead removal. Assessment and Plan - Assessment (1) Staphylococcus aureus bacteremia with sepsis Code(s): A41.01 - Sepsis due to Methicillin susceptible Staphylococcus aureus Status: Acute - Plan This is a 57-year-old male with past medical history of coronary artery disease status post CABG, diabetes mellitus, COPD presenting with nausea, vomiting and abdominal pain. Non-ST elevated myocardial infarction Systolic CHF with severely reduced EF of 25-30% - clinically not in failure -Cardiology has been consulted and says he is not a candidate for cardiac catheterization. They recommended palliative care or referral for heart transplant work-up, [facility] has been contacted and said that patient is not a good candidate at this point because of his comorbidites. Continue aspirin, statin and coreg, s/p removal of the ICD 10/18/17 due to infection; - patient will still need a lifevest on d/c - restart Lisinorpil 2.5 mg po daily today - monitor Sepsis secondary to MSSA bacteremia -High-grade MSSA infection from PICC line, status post PICC line removal. AICD removed.- 10/18 -Continue oxacillin per infectious disease.- started 10/16 - will d/w ID- regarding PICC Recent osteomyelitis:s/p Right third ray amputation with Dr Miranda 10/21, -Foot MRI showed Slight degree of nonspecific edema involving the distal portions of the second third and fifth metatarsal bones not present on the prior study, podiatry consulted and signed off. on IV Oxacillin Bandage changed 10/[address] Miranda Ordered betadine wet to dry dressing R foot to be applied per nursing every 3 days. Follow up with Dr Miranda 1 week after discharge to evaluate for suture removal Nonweightbearing right forefoot. Heel contact only, minimally, to sustain balance. ID- Dr. Henao- PICC ordered AICD associated TV endocarditis -sp AICD placement in May -CARA ( 10/14/17) with large vegetation 20x28 mm, s/p ICD and lead removal, - continue oxacillin per infectious disease. -AICD can be placed on contralateral site after 2 weeks of IV abx providing, blood clx remain negative and no active infx in R foot Anxiety- improved The pt has episodes of shaking and respiratory distress that may be s/t anxiety. - Ativan as needed. Diabetic ketoacidosis, uncontrolled diabetes, improved- readings overall improving -Status post insulin drip -Hemoglobin A1c 8.2 -Continue sliding scale insulin, BG's in the high 200s and 300s . Dc Levemer - change to 70/30 bid- - increased to 20 units bid - states good hypoglycemic awareness - as OP was on Metformin 850 mg bid- MENDY DC on admission - restart Metformin 500 mg po bid- BMPs improved- good po, good UO- increased to home dose of 850 mg bid Metabolic/toxic encephalopathy- likely secondary to infection, diabetic ketoacidosis, resolved Acute renal failure superimposed on chronic kidney disease stage II, improved -BRIANA inhibitor has been held- consider restarting eventually - Metformin -restarted ff VBMP DVT prevention - Lovenox Sub Q daily Palliative care following, patient would like to continue aggressive care d/w patient and - needs to set up with OP PCP and pharmaceutical laboratory technician- that takes Medicaid- she will start looking around Discharge Planning: Needs life vest. Cardiology requested transfer for heart transplant evaluation however [facility] declined due to patient being a poor candidate from comorbidities. d/w patient at length
--- NOTE | 2017-11-01 11:06 | P.PNCA ---
Subjective Interval history: alert in nad Physical Exam Vital signs: Vital Signs 10/31/17 12:00 10/31/17 16:00 10/31/17 20:00 Temperature 97.9 F 97.8 F 97.3 F L Pulse Rate 69 76 60 Respiratory Rate 20 18 18 Blood Pressure 126/67 114/58 L 123/58 L Pulse Oximetry 97 97 97 10/31/17 23:41 11/01/17 00:00 11/01/17 03:47 Temperature 97.4 F L 97.3 F L Pulse Rate 64 72 70 Respiratory Rate 18 18 Blood Pressure 100/57 L 91/52 L Pulse Oximetry 97 97 11/01/17 04:00 11/01/17 06:00 11/01/17 07:32 Temperature 97.8 F Pulse Rate 75 75 Respiratory Rate 18 18 Blood Pressure 99/52 L Pulse Oximetry 99 Intake & Output 10/31/17 11/01/17 11/01/17 18:59 06:59 18:59 Intake Total 780 / 780 300 / 300 Output Total 1600 / 1600 0 / 0 Balance -820 / -820 300 / 300 Weight 84.4 kg 85.1 kg Intake: IV 300 / 300 300 / 300 Prostaphlin Inj 2 GM In NS Inj 300 / 300 300 / 300 100 ML @ 200 mls/hr IV.SIG Q4H JEFE Rx#:[id number] Oral 480 / 480 Output: Urine 1600 / 1600 0 / 0 Other: Date of Last Bowel Movement 10/29/17 10/29/17 # Bowel Movements 1 Assessment and Plan - Assessment (1) ACS (acute coronary syndrome) Code(s): I24.9 - Acute ischemic heart disease, unspecified Status: Acute (2) Acidosis, lactic Code(s): E87.2 - Acidosis Status: Acute (3) DKA (diabetic ketoacidoses) Code(s): E13.10 - Other specified diabetes mellitus with ketoacidosis without coma Status: Acute (4) Frequent unifocal PVCs Code(s): I49.3 - Ventricular premature depolarization Status: Acute - Plan 1.) Ischemic cardiomyopathy - consult case management for transfer for heart transplant eval and palliative care, d/w Dr Fernando and nurse; he appears to assymptomatic when not tachycardic, prognosis is poor; reprtedly has medicaid now, d/w [facility] today no staff available to discuss indication for transplant eval, they did not call me back but contacted cm to decline the patient due to multiple co morbidities, i d/w Dr Florence 2.) SBE - pod #14 s/p lead and icd extraction per Dr Cunha 10/18/17, appears to be clinically improving and stable, abs per ID, then life vest, going for pic line 11/01/17 3.) Recommend outpatient f/u in heart transplant clinic at [facility] , d/w patient
[2017-11-01 12:39] LABS: Calcium 9.3 mg/dL (8.5-10.1); Carbon Dioxide 23.7 meq/L (21.0-32.0); Potassium 4.2 meq/L (3.5-5.1)
--- NOTE | 2017-11-01 12:40 | P.PNPAL ---
Reason for Visit Reason for visit: a. To assist with evaluation and management of symptoms including: anxiety, pain b. To assist medical decision maker(s) with: better understanding of current medical conditions; weighing benefits/burdens of medical treatment options; making medical treatment decisions. Subjective Subjective/Interval History: Patient seen today to follow-up on symptom management of anxiety and pain. Draft/pending/template Has remained stable. No new labs. Patient has been fitted for and placed in LifeVest. Discharge to rehab is pending, possibly today pending PICC line is placed and antibiotics outpatient are able to be arranged. He has been working with PT, indicates ambulated around the entire unit yesterday. Patient reports no episodes of chest pain. Some mild dyspnea with exertion. Continues to have pain to right foot toe amputation areas much worse when he ambulated all the way around the unit. prn is effective. He indicates his anxiety continues to fluctuate, he is still trying to figure everything out in terms of his discharge and what he does for his heart in the future. He endorses using occasional Ativan with good relief. He does not like that he has to wear the LifeVest though understands he does not have any options for implanted device at this time. He indicates he remains hopeful that he will have some options to help improve his heart, will be following up outpatient with cardiology possibly at [facility] for transplant evaluation etc. Endorses good appetite. Brief episode of nausea yesterday evening, limited did not require zofran Advance Directives Health Care Surrogate Name and Number: Lisseth Drake Objective Vital Signs: Vital Signs 10/31/17 16:00 10/31/17 20:00 10/31/17 23:41 Temperature 97.8 F 97.3 F L 97.4 F L Pulse Rate 76 60 64 Respiratory Rate 18 18 18 Blood Pressure 114/58 L 123/58 L 100/57 L Pulse Oximetry 97 97 97 11/01/17 00:00 11/01/17 03:47 11/01/17 04:00 Temperature 97.3 F L Pulse Rate 72 70 75 Respiratory Rate 18 Blood Pressure 91/52 L Pulse Oximetry 97 11/01/17 06:00 11/01/17 07:32 Temperature 97.8 F Pulse Rate 75 Respiratory Rate 18 18 Blood Pressure 99/52 L Pulse Oximetry 99 Intake & Output 10/31/17 11/01/17 11/01/17 18:59 06:59 18:59 Intake Total 780 / 780 300 / 300 Output Total 1600 / 1600 0 / 0 Balance -820 / -820 300 / 300 Weight 84.4 kg 85.1 kg Intake: IV 300 / 300 300 / 300 Prostaphlin Inj 2 GM In NS Inj 300 / 300 300 / 300 100 ML @ 200 mls/hr IV.SIG Q4H JEFE Rx#:[id number] Oral 480 / 480 Output: Urine 1600 / 1600 0 / 0 Other: Date of Last Bowel Movement 10/29/17 10/29/17 # Bowel Movements 1 Physical Exam: CONSTITUTIONAL/GENERAL: This is an adequately nourished patient, in no apparent distress, alert, pleasant TUBES/LINES/DRAINS: PIV RUE SKIN: No jaundice, rashes, or lesions. + Dressing to right foot, under walking boot. Dressing appears clean and dry. CARDIOVASCULAR: Regular rate and rhythm . No JVD. Peripheral pulses symmetric-- unable to palpate right pedal secondary to large dressing/boot RESPIRATORY/CHEST: Symmetric, unlabored respirations. Clear to auscultation. On room air. Breath sounds equal bilaterally. GASTROINTESTINAL: Abdomen soft, non-tender, nondistended. No palpable masses. No guarding. Bowel sounds present. MUSCULOSKELETAL: Extremities without clubbing, cyanosis, or edema. Right second and 3rd toe amputation dressing clean and dry. NEUROLOGICAL: Awake and alert, oriented and appropriate. Reasonable insight. Motor and sensory grossly within normal limits. Follows commands. Cognitively sharp. Moves all 4 extremities. PSYCHIATRIC: Obviously anxious today. no apparent hallucinations or other psychotic thought process. . Diagnostic Tests Laboratory: Laboratory Results - last 72 hr 10/29/17 10/29/17 10/30/17 18:06 20:50 06:05 Sodium 138 Potassium 4.1 Chloride 104 Carbon Dioxide 24.4 Anion Gap 10 BUN 15 Creatinine 0.89 Estimated GFR 87 L POC Glucose 117 H 256 H Random Glucose 234 H Calcium 9.2 10/30/17 10/30/17 10/30/17 08:22 12:34 17:08 Sodium Potassium Chloride Carbon Dioxide Anion Gap BUN Creatinine Estimated GFR POC Glucose 266 H 240 H 129 H Random Glucose Calcium 10/30/17 10/31/17 10/31/17 20:55 08:18 12:08 Sodium Potassium Chloride Carbon Dioxide Anion Gap BUN Creatinine Estimated GFR POC Glucose 128 H 130 H 239 H Random Glucose Calcium 10/31/17 10/31/17 11/01/17 16:24 21:01 07:01 Sodium Potassium Chloride Carbon Dioxide Anion Gap BUN Creatinine Estimated GFR POC Glucose 121 H 117 H 96 Random Glucose Calcium 11/01/17 12:14 Sodium Potassium Chloride Carbon Dioxide Anion Gap BUN Creatinine Estimated GFR POC Glucose 146 H Random Glucose Calcium Result Diagrams: 10/29/17 06:26 10/30/17 06:05 Procedures: 10/14/17 - CARA . Assessment and Plan Pertinent Non-Medical Issues: Psychosocial:He was born in [place] and moved to [place] before he was 8 years old. 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 He has never been and has no children. He has a significant other whom he has made a healthcare surrogate. He was in the service but did not serve during more time. 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 Legal: Healthcare surrogate, identifying his girlfriend Lisseth as his primary healthcare surrogate and his sister, Michelle Ayon as his alternate. Ethical issues impacting care: None noted. . Important Contacts: Girlfriend: Lisseth Drake Sister: Michelle Ayon , . Prognosis: His prognosis is poor. He has a significantly reduced ejection fraction of 25- 30% with ischemic cardiomyopathy, moderate mitral regurgitation, moderate to severe tricuspid regurgitation, pulmonary hypertension and is not a candidate for revascularization. He has been referred to [facility] several times but declined due to no insurance coverage. This is his sixth admission to [facility] in 2018 for recurrent decline and complication. He has end- stage heart disease and would be hospice appropriate if goals were consistent. . Code Status: Full Code Plan: PLAN: Legal decision maker: He is currently capacitated for making his own decisions, however has designated his girlfriend Lisseth as his primary healthcare surrogate and his sister, Michelle, as his alternate in case he becomes incapacitated. Goals: Aggressive. Patient wishes to continue to pursue heart transplant if this becomes a possibility, alternatively would proceed with LifeVest and continue to try to improve his health. CODE STATUS: FULL CODE SYMPTOMS: * Anxiety: Patient is developing a better understanding of his current clinical situation to include end-stage heart disease, endocarditis, recurrent infection , osteomyelitis and is having some anxiety secondary to the potential for complications and decline. He has Ativan 1 mg every 6 hours as needed and is using less frequently than before, about once per day, effective per pt. * Pain: Pain in right foot status post amputation of second and third toes. has [place] available as needed. This is limiting his effectiveness with physical therapy, but is able to ambulate short distances in the room with postop shoe and walker. has been cleared by podiatry for discharge with outpatient follow-up. Has been using [place] sparingly, a few times per day, patient indicates is effective. Has not used a dose yet today, last dose yesterday afternoon. * Nausea: Self-limited episode of nausea reported yesterday. He does have Zofran available. Will cont to evaluate . Palliative care will continue to follow the patient during hospital course as condition evolves, to assist patient/decision-maker with understanding of their medical conditions, weighing benefits/burdens of treatment options, for clarification of goals of treatment. Additionally will assist with any symptoms of palliative concern. . Attestation Attestation: To help prompt me to consider important information that might be impacting today's encounter and assessment, information from prior notes written by myself or my colleagues may have been "brought forward" into today's note. My signature on this note, however, is an attestation that I personally performed the exam, history, and/or decision-making noted today, and, unless otherwise indicated, the interactions with patient, family, and staff as well as the review of records all occurred today. I also attest that the listed assessment and stated plan reflect my best clinical judgment today based on the combination of historical information, prior notes, and today's exam/ interactions. When time spent is documented, it refers only to time spent today by the signer, or if indicated, combined time spent today by collaborating physician/nurse practitioner.
[2017-11-01] MEDS ORDERED: Heparin Central Flush 100 UNIT/ML 5 ML Vial IV.FLUSH PRN (14:42)
--- NOTE | 2017-11-01 15:54 | P.DS ---
Date of admission: 10/06/17 10:26 Primary care physician: Michael Jacques DO Anticipated date of discharge: 11/01/17 Brief History from admission: This is a 57-year-old male. Date of admission 10/06/2017. Past medical history includes coronary artery disease status post CABG 3 currently with unamenable vessels for bypass, peripheral arterial disease, ejection fraction 20%, diabetes mellitus type 2, COPD, hepatitis C antibody positive, history of basal cell carcinoma and recent diagnosis with osteomyelitis of the right second toe status post cefazolin therapy as an outpatient which completed 4 days ago. Patient was in his normal state of health over the past couple days patients with increasing abdominal pain including nausea and vomiting and unable to take his home medications. He has been asked complaining of chills, sweats and generalized tremors. Today, he presented to [facility] for further evaluation and treatment. He denies any chest pain per se, shortness of breath. Denies any hematemesis or melena. Patient is noted to be in acute kidney injury creatinine 1.4. Troponin was elevated at 1.86. EKG showed nonspecific ST-T changes. Of note, patient has been off his apixaban because he is unable to afford $550 a month for this medication. Blood sugar was greater than 400. Lactate was 6.4. Patient received approximately liter of crystalloid resuscitation in the ED. His blood pressure is currently stable with hematocrit and 65. He is awake and interactive. His amputations had a second toe does not appear to be infected. He has vague diffuse abdominal pain/nonspecific with no guarding or rigidity. Multiple laboratories are still pending. Patient was started on a insulin heparin drip. We are asked to admit the patient. DS: Diagnosis - Discharge Diagnosis (1) Staphylococcus aureus bacteremia with sepsis Status: Acute DS: Medications - Discharge Medications Prescriptions: aspirin 325 mg PO DAILY #90 tab collagenase clostridium histo. [Santyl] 1 applicatio TOPICAL DAILY 30 Days #2 g furosemide 20 mg PO DAILY #90 tab lisinopril 2.5 mg PO DAILY #90 tab DS: Summary Hospital Course: This is a 57-year-old male with past medical history of coronary artery disease status post CABG, diabetes mellitus, COPD presenting with nausea, vomiting and abdominal pain. Non-ST elevated myocardial infarction Systolic CHF with severely reduced EF of 25-30% - clinically not in failure -Cardiology has been consulted and says he is not a candidate for cardiac catheterization. They recommended palliative care or referral for heart transplant work-up, [facility] has been contacted and said that patient is not a good candidate at this point because of his comorbidites. Continue aspirin, statin and coreg, s/p removal of the ICD 10/18/17 due to infection; - patient will still need a lifevest on d/c - restart Lisinorpil 2.5 mg po daily today - monitor Sepsis secondary to MSSA bacteremia -High-grade MSSA infection from PICC line, status post PICC line removal. AICD removed.- 10/18 -Continue oxacillin per infectious disease.- started 10/16 - will d/w ID- regarding PICC Recent osteomyelitis:s/p Right third ray amputation with Dr Miranda 10/21, -Foot MRI showed Slight degree of nonspecific edema involving the distal portions of the second third and fifth metatarsal bones not present on the prior study, podiatry consulted and signed off. on IV Oxacillin Bandage changed 10/[address] Miranda Ordered betadine wet to dry dressing R foot to be applied per nursing every 3 days. Follow up with Dr Miranda 1 week after discharge to evaluate for suture removal Nonweightbearing right forefoot. Heel contact only, minimally, to sustain balance. ID- Dr. 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 -AICD can be placed on contralateral site after 2 weeks of IV abx providing, blood clx remain negative and no active infx in R foot Anxiety- improved The pt has episodes of shaking and respiratory distress that may be s/t anxiety. - Ativan as needed. Diabetic ketoacidosis, uncontrolled diabetes, improved- readings overall improving -Status post insulin drip -Hemoglobin A1c 8.2 -Continue sliding scale insulin, BG's in the high 200s and 300s . Dc Levemer - change to 70/30 bid- - increased to 20 units bid - states good hypoglycemic awareness - as OP was on Metformin 850 mg bid- MENDY DC on admission - restart Metformin 500 mg po bid- BMPs improved- good po, good UO- increased to home dose of 850 mg bid Metabolic/toxic encephalopathy- likely secondary to infection, diabetic ketoacidosis, resolved Acute renal failure superimposed on chronic kidney disease stage II, improved -BRIANA inhibitor has been held- consider restarting eventually - Metformin DVT prevention - Lovenox Sub Q daily Palliative care following, patient would like to continue aggressive care d/w patient and - needs to set up with OP PCP and supervisor boarding- that takes Medicaid- she will start looking around Discharge Planning: Have life vest FF up as OP with specialist Marcella referral as OP - Time Spent with Patient Total time spent providing and/or coordinating discharge services: Greater than 30 minutes - Quality: VTE Deep Vein Thrombosis/Pulmonary Embolism Present on Admission: No Exam Vital signs: Vital Signs 10/31/17 16:00 10/31/17 20:00 10/31/17 23:41 Temperature 97.8 F 97.3 F L 97.4 F L Pulse Rate 76 60 64 Respiratory Rate 18 18 18 Blood Pressure 114/58 L 123/58 L 100/57 L Pulse Oximetry 97 97 97 11/01/17 00:00 11/01/17 03:47 11/01/17 04:00 Temperature 97.3 F L Pulse Rate 72 70 75 Respiratory Rate 18 Blood Pressure 91/52 L Pulse Oximetry 97 11/01/17 06:00 11/01/17 07:32 11/01/17 12:00 Temperature 97.8 F 98.1 F Pulse Rate 75 72 Respiratory Rate 18 18 18 Blood Pressure 99/52 L 104/63 Pulse Oximetry 99 98 Intake & Output 10/31/17 11/01/17 11/01/17 18:59 06:59 18:59 Intake Total 780 / 780 300 / 300 100 / 100 Output Total 1600 / 1600 0 / 0 Balance -820 / -820 300 / 300 100 / 100 Weight 84.4 kg 85.1 kg Intake: IV 300 / 300 300 / 300 100 / 100 Prostaphlin Inj 2 GM In NS Inj 300 / 300 300 / 300 100 / 100 100 ML @ 200 mls/hr IV.SIG Q4H JEFE Rx#:[id number] Oral 480 / 480 Output: Urine 1600 / 1600 0 / 0 Other: Date of Last Bowel Movement 10/29/17 10/29/17 # Bowel Movements 1 Results Procedures completed during hospitalization: CARA/ s/p ICD and lead removal. Completed studies during hospitalization: Pending at discharge 10/21/17 07:28 Surgical [PTH] Routine Labs on day of discharge: Labs from last 24 hours 11/01/17 11/01/17 11/01/17 12:14 11:57 07:01 Sodium 138 Potassium 4.2 Chloride 105 Carbon Dioxide 23.7 Anion Gap 9 BUN 20 H Creatinine 0.92 Estimated GFR 84 L POC Glucose 146 H 96 Random Glucose 133 H Calcium 9.3 10/31/17 10/31/17 21:01 16:24 Sodium Potassium Chloride Carbon Dioxide Anion Gap BUN Creatinine Estimated GFR POC Glucose 117 H 121 H Random Glucose Calcium Preliminary micro results at discharge 10/18/17 11:02 Fungal Culture - Preliminary Other No growth in 2 weeks 10/18/17 11:02 Mycobacterial Culture - Preliminary Other No growth in 2 weeks 10/21/17 17:01 Fungal Culture - Preliminary Other No growth in 1 week 10/21/17 17:01 Mycobacterial Culture - Preliminary Other No growth in 1 week - Impressions ITS Impressions Abdomen/Pelvis CT 10/06/17 00:00 CONCLUSION: 1. No acute abnormality seen. 2. Increased density at the posterior lower lobes likely related to mild atelectasis. 3. Scattered atherosclerotic calcifications throughout the arterial system. 4. Degenerative and postsurgical change in the lumbar spine. SPECT Scan-Bone NM 10/17/17 00:00 CONCLUSION: Chest X-Ray 10/18/17 11:21 CONCLUSION: Negative for pneumothorax. Mild compensated cardiomegaly. Foot MRI 10/20/17 00:00 CONCLUSION: 1. Slight degree of nonspecific edema involving the distal portions of the second third and fifth metatarsal bones not present on the prior study unusual to represent osteomyelitis and the rest of the marrow appears intact. Findings could be further characterized with white blood cell scan based on clinical grounds. Foot X-Ray 10/21/17 00:00 CONCLUSION: Amputation of the second and third toes and distal metatarsals as above. Discharge Plan - Discharge Disposition Patient Disposition: Discharge Home - Discharge Condition Condition: Serious - Discharge Order Discharge Orders: Discharge Order (Routine); Ordered 11/01/17 Ordered By: Anahi Hess Podiatry Clear for Discharge (Routine); Ordered 10/23/17 Ordered By: Nyla Miranda - Discharge Details Anticipated Discharge Date: 11/01/17 - Physicians Team Primary Care Provider: Michael Jacques Attending Provider: Anahi Hess Other Providers: Natalee Henao MD ; Randall Olivares MD ; Razia Conway DPM ; Tyesha Aguirre MD
[2017-11-02] MEDS ORDERED: Heparin Central Flush 100 UNIT/ML 5 ML Vial IV.FLUSH SCH (09:00)
== END 2017-11-01 17:45 | disposition home or self-care (01) ==
LOC: NEPC 08:18 → NEDA 10:26 → HIMC 11:20 → HCPC 10-07 14:32 → HCIS 10-18 09:15 → N04 10-18 17:04
PROVIDERS: ADMIT Internal Medicine; ATTEND Internal Medicine
PROC: [UNRECOGNIZED PROCEDURE] (2017-10-18 10:34)